=== PATIENT | female | born 1970 | race Caucasian/White ===

== ENCOUNTER 2019-11-14 18:24 | Emergency (ER) | payer SELFPAY ==
[2019-11-14] MEDS ORDERED: CYCLOBENZAPRINE 10 MG TAB ONE (19:06)
[2019-11-14] MEDS ORDERED: IBUPROFEN 400 MG TAB ONE (19:07)
[2019-11-14] MEDS ORDERED: HYDROCODONE/APAP 10/325 TAB ONE (19:07)
[2019-11-14 19:51] LABS: Urine Blood NEGATIVE (NEG); Urine Glucose NEGATIVE (NEG); Urine Protein NEGATIVE (NEG); Urine Specific Gravity >1.030 (1.005-1.030)
[2019-11-14] MEDS ORDERED: ONDANSETRON 4 MG (ODT) TAB ONE (19:59)
--- NOTE | 2019-11-14 20:13 | ER ---
Nurse's Notes [facility] Name: Vianca Casey Age: 49 yrs Sex: Female : 1970 Arrival Date: 11/14/2019 Time: 18:27 Bed 26 Private MD: Diagnosis: Low back pain Presentation: 11/14 18:30 Presenting complaint: Patient states: low back pain that radiates to the sides and down sv the legs. Transition of care: patient was not received from another setting of care. Onset of symptoms was November 14, 2019. Care prior to arrival: None. 18:30 Method Of Arrival: Ambulatory sv 18:30 Acuity: MARY 4 sv 18:32 Risk Assessment: Do you want to hurt yourself or someone else? Patient reports no ls4 desire to harm self or others. Initial Sepsis Screen: Does the patient meet any 2 criteria? No. Patient's initial sepsis screen is negative. Does the patient have a suspected source of infection? No. Patient's initial sepsis screen is negative. Triage Assessment: 18:32 General: Behavior is calm, cooperative. ls4 18:32 Musculoskeletal: No deficits noted. ls4 18:32 General: Appears uncomfortable. Musculoskeletal: Reports weakness in right low back and ls4 left low back since WHILE AT WORK A FEW HOURS AGO . 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 - Social history:: Smoking status: Patient/guardian denies using tobacco. - Ebola Screening: : No symptoms or risks identified at this time. Screenin:32 Abuse screen: Denies threats or abuse. Denies injuries from another. Nutritional ls4 screening: No deficits noted. Tuberculosis screening: No symptoms or risk factors identified. Fall Risk None identified. Assessment: 18:30 General: Appears uncomfortable. Pain: Complains of pain in right low back and left low ls4 back Pain currently is 10 out of 10 on a pain scale. Pain began suddenly, 1 hour ago. 18:30 Neuro: Level of Consciousness is awake, alert, obeys commands, Oriented to person, ls4 place, time, situation. 19:00 Reassessment: Patient and/or family updated on plan of care and expected duration. Pain ls4 level reassessed. Patient is alert, oriented x 3, equal unlabored respirations, skin warm/dry/pink. Patient states feeling better. 20:00 Reassessment: Patient and/or family updated on plan of care and expected duration. Pain ls4 level reassessed. Patient is alert, oriented x 3, equal unlabored respirations, skin warm/dry/pink. 20:00 Cardiovascular: No deficits noted. Respiratory: No deficits noted. ls4 Vital Signs: 18:30 BP 141 / 81; Pulse 80; Resp 18; Temp 97; Pulse Ox 96% ; Weight 86.64 kg; Height 5 ft. 2 sv in. (157.48 cm); 18:30 Body Mass Index 34.93 (86.64 kg, 157.48 cm) sv ED Course: 18:27 Patient arrived in ED. as 18:28 Aj[facility] Law[facility] F[facility]-C [facility]. la1 18:28 Wilian Lebron MD is Attending Physician. la1 18:30 Triage completed. sv 18:31 Arm band placed on. sv 18:32 Patient has correct armband on for positive identification. Bed in low position. Call ls4 light in reach. Side rails up X 1. 18:32 No provider procedures requiring assistance completed. Patient did not have IV access ls4 during this emergency room visit. 18:37 Natasha Be, RN is Primary Nurse. ls4 Administered Medications: 19:11 Drug: Motrin 800 mg Route: PO; ls4 20:20 Follow up: Response: No adverse reaction; Marked relief of symptoms ls4 19:12 Drug: Sulphur 10 mg-325 mg 1 tabs Route: PO; ls4 20:20 Follow up: Response: No adverse reaction; Pain is decreased ls4 19:12 Drug: Flexeril 10 mg Route: PO; ls4 20:20 Follow up: Response: No adverse reaction; Marked relief of symptoms ls4 19:59 Drug: Zofran 4 mg Route: PO; ls4 20:19 Follow up: Response: No adverse reaction; Marked relief of symptoms ls4 Outcome: 20:13 Discharge ordered by . la1 20:37 Patient left the ED. ls4 20:37 Discharged to home ambulatory. ls4 20:37 Condition: stable 20:37 Discharge instructions given to patient, Instructed on discharge instructions, follow up and referral plans. Demonstrated understanding of instructions, follow-up care, medications. Signatures: Maritza Galvan, RN RN Flora Issa Lee, MOBILE HOME LOT UTILITY WORKER-C MOBILE HOME LOT UTILITY WORKER-Cla1 Natasha Be RN RN ls4
--- NOTE | 2019-11-14 20:13 | EDPHYS ---
Physician Documentation [facility] Name: Vianca Casey Age: 49 yrs Sex: Female : 1970 Arrival Date: 11/14/2019 Time: 18:27 Bed 26 Private MD: Wilian Neves HPI: 11/14 19:17 This 49 yrs old Female presents to ER via Ambulatory with complaints of Back la1 Pain. 19:17 The patient presents with pain that is acute, with no known mechanism of injury. The la1 symptoms are located in the low back. Onset: The symptoms/episode began/occurred 2 day(s) ago. The pain does not radiate. Associated signs and symptoms: Pertinent negatives: abdominal pain, chest pain, constipation, dysuria, fever, headache, hematuria, incontinence, numbness, tingling, urinary retention, vomiting, weakness. The problem was sustained. Modifying factors: The patient symptoms are alleviated by remaining still, rest, the patient symptoms are aggravated by any movement, bending, lifting, movement. Severity of symptoms: At their worst the symptoms were moderate. The patient has not experienced similar symptoms in the past. 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 - Social history:: Smoking status: Patient/guardian denies using tobacco. - Ebola Screening: : No symptoms or risks identified at this time. ROS: 19:18 Constitutional: Negative for fever, chills, and weight loss, Eyes: Negative for injury, la1 pain, redness, and discharge, ENT: Negative for injury, pain, and discharge, Neck: Negative for injury, pain, and swelling, Cardiovascular: Negative for chest pain, palpitations, and edema, Respiratory: Negative for shortness of breath, cough, wheezing, and pleuritic chest pain, Abdomen/GI: Negative for abdominal pain, nausea, vomiting, diarrhea, and constipation. 19:18 : Negative for injury, bleeding, discharge, and swelling, MS/Extremity: Negative for injury and deformity, Skin: Negative for injury, rash, and discoloration, Neuro: Negative for headache, weakness, numbness, tingling, and seizure. 19:18 Back: Positive for decreased range of motion, pain with movement. Exam: 19:18 Constitutional: This is a well developed, well nourished patient who is awake, alert, la1 and in no acute distress. Head/Face: Normocephalic, atraumatic. Neck: Trachea midline, no thyromegaly or masses palpated, and no cervical lymphadenopathy. Supple, full range of motion without nuchal rigidity, or vertebral point tenderness. No Meningismus. Chest/axilla: Normal chest wall appearance and motion. Nontender with no deformity. No lesions are appreciated. Cardiovascular: Regular rate and rhythm with a normal S1 and S2. No gallops, murmurs, or rubs. Normal PMI, no JVD. No pulse deficits. Respiratory: Lungs have equal breath sounds bilaterally, clear to auscultation . No rales, rhonchi or wheezes noted. No increased work of breathing, no retractions or nasal flaring. 19:18 Back: pain, that is moderate, of the left low back and right low back, ROM is painful, CVA tenderness, is absent, vertebral tenderness, is not appreciated, Straight leg raises: of both lower extremities does not illicit pain. 19:18 Neuro: Orientation: is normal, Motor: is normal, strength is 5/5 in all extremities, Sensation: no obvious gross deficits, Gait: is steady. Vital Signs: 18:30 BP 141 / 81; Pulse 80; Resp 18; Temp 97; Pulse Ox 96% ; Weight 86.64 kg; Height 5 ft. 2 sv in. (157.48 cm); 18:30 Body Mass Index 34.93 (86.64 kg, 157.48 cm) sv MDM: 18:33 Patient medically screened. la1 20:12 Data reviewed: vital signs, nurses notes, and as a result, I will discharge patient. la1 Data interpreted: Pulse oximetry: on room air is 96 %. Interpretation: normal. Counseling: I had a detailed discussion with the patient and/or guardian regarding: the historical points, exam findings, and any diagnostic results supporting the discharge/admit diagnosis, lab results, the need for outpatient follow up, a family practitioner. Response to treatment: the patient's symptoms have mildly improved after treatment. Special discussion: Based on the patient's history, exam, and Dx evaluation, there is no indication for emergent intervention or inpatient Tx. It is understood by the patient/guardian that if the Sx's persist or worsen they need to return immediately for re-evaluation. 11/14 19:14 Order name: Urine Dipstick--Ancillary (enter results) cm6 11/14 18:58 Order name: Urine Dipstick-Ancillary (obtain specimen); Complete Time: 19:19 la1 Administered Medications: 19:11 Drug: Motrin 800 mg Route: PO; ls4 20:20 Follow up: Response: No adverse reaction; Marked relief of symptoms ls4 19:12 Drug: Luxora 10 mg-325 mg 1 tabs Route: PO; ls4 20:20 Follow up: Response: No adverse reaction; Pain is decreased ls4 19:12 Drug: Flexeril 10 mg Route: PO; ls4 20:20 Follow up: Response: No adverse reaction; Marked relief of symptoms ls4 19:59 Drug: Zofran 4 mg Route: PO; ls4 20:19 Follow up: Response: No adverse reaction; Marked relief of symptoms ls4 Disposition: 11/15 06:15 Co-signature as Attending Physician, Wilian Lebron MD I agree with the assessment and kerry plan of care. Disposition: 11/14/19 20:13 Discharged to Home. Impression: Low back pain. - Condition is Stable. - Discharge Instructions: Back Pain, Adult, Musculoskeletal Pain, Back Injury Prevention, [id number], Back Pain, Adult, Oceh-np-[id number], Back Exercises, Kpcj-[id number]. - Prescriptions for Cyclobenzaprine 10 mg Oral Tablet - take 1 tablet by ORAL route every 8 hours As needed; 30 tablet. - Work release form, Medication Reconciliation Form, Thank You Letter form. - Follow up: Private Physician; When: 2 - 3 days; Reason: Recheck today's complaints, Re-evaluation by your physician. - Problem is new. - Symptoms have improved. Signatures: Dispatcher [employer] Maritza Braden RN RN sv Anderson, Corey, MD MD cha Attema, Lee, TICKET CHOPPER ASSEMBLER-C TICKET CHOPPER ASSEMBLER-Cla1 Natasha Be RN RN ls4 Corrections: (The following items were deleted from the chart) 11/14 20:37 20:13 11/14/2019 20:13 Discharged to Home. Impression: Low back pain. Condition is ls4 Stable. Forms are Medication Reconciliation Form, Thank You Letter, Antibiotic Education, Prescription Opioid Use. Follow up: Private Physician; When: 2 - 3 days; Reason: Recheck today's complaints, Re-evaluation by your physician. Problem is new. Symptoms have improved. la1
[2019-11-14 23:23] VITALS: BP 141/81; TEMP 97; O2SAT 96
== END 2019-11-14 20:37 | disposition home or self-care (01) ==
LOC: ER 18:24
DX: M54.5 Low back pain (principal)
CPT/HCPCS: 81003; 99283

== ENCOUNTER 2022-05-31 05:50 | Emergency (ER) | payer SELFPAY ==
[2022-05-31] MEDS ORDERED: NA CHLORIDE 0.9% 1,000 ML ONE (06:39)
[2022-05-31] MEDS ORDERED: MORPHINE 4 MG/ML SYR ONE (06:39)
[2022-05-31] MEDS ORDERED: ONDANSETRON 4 MG/2 ML VIAL ONE (06:39)
[2022-05-31 06:53] LABS: Absolute Lymphocytes (CBC) 1.4 K/uL (0.7-4.9); Hematocrit 43.9 % (36.0-45.0); Lymphocytes % 29.8 % (15.3-44.8); MCV 96.2 fL (80-100); MPV 8.7 fL (7.6-11.3); RBC Red Blood Cell Count 4.57 M/uL (3.86-4.86)
[2022-05-31 07:08] LABS: Albumin 3.5 g/dL (3.4-5.0); Bilirubin Total 0.5 mg/dL (0.2-1.0); Protein, Total 7.4 g/dL (6.4-8.2)
[2022-05-31 08:04] LABS: Urine Blood Negative (Negative); Urine Glucose Negative (Negative); Urine Protein Negative (Negative)
--- NOTE | 2022-05-31 08:28 | RAD REPORT ---
EXAM DESCRIPTION: CT - Abdomen Pelvis W Contrast - 05/31/2022 8:18 am CLINICAL HISTORY: Abdominal pain COMPARISON: 2013 TECHNIQUE: Computed axial tomography of the abdomen pelvis was obtained. 100 cc Isovue-300 was admin istered intravenously. Oral contrast was not requested which limits evaluation of bowel and appendix All CT scans are performed using dose optimization technique as appropriate and may include automated exposure control or mA/KV adjustment according to patient size. FINDINGS: Fatty liver. Cholecystectomy. Spleen, pancreas, adrenals and kidneys unremarkable. Appendectomy. Hysterectomy. No adnexal mass. There is no evidence of diverticulitis. IMPRESSION: No acute abnormality is displayed.
--- NOTE | 2022-05-31 08:31 | RAD REPORT ---
EXAM DESCRIPTION: CT - Chest For Pe Angio - 05/31/2022 8:18 am CLINICAL HISTORY: Chest pain COMPARISON: None. TECHNIQUE: Dynamically enhanced axial 3 mm thick images of the chest were obtained during administra tion of <100> mL Isovue 370 IV contrast. Coronal and oblique reconstruction images were generated and reviewed. Exam utilizes a protocol for optimal evaluation of pulmonary arterial tree. Maximum intensity projections 3D imaging was utilized All CT scans are performed using dose optimization technique as appropriate and may include automated exposure control or mA/KV adjustment according to patient size. FINDINGS: A pulmonary embolus is not seen. A thoracic aortic aneurysm is not noted. A pleural effusion is not seen. A pericardial effusion is not seen. A lung consolidation is not present. IMPRESSION: Negative for a pulmonary embolism.
[2022-05-31 10:11] VITALS: BP 130/79; O2SAT 100
--- NOTE | 2022-06-02 09:18 | EDPHYS ---
Physician Documentation [facility] Name: Vianca Casey Age: 51 yrs Sex: Female : 1970 Arrival Date: 05/31/2022 Time: 05:55 Bed 4 Private MD: ED Physician Jason Still HPI: 05/31 07:15 This 51 yrs old Female presents to ER via Ambulatory with complaints of Cough, kdr Congestion, Flank Pain. 07:16 Patient states that since yesterday morning, she has had right-sided chest pain. He kdr states that it hurts to breathe. She has had some cough with clear phlegm but otherwise no other focal symptoms.. Onset: The symptoms/episode began/occurred gradually, yesterday. Severity of symptoms: At their worst the symptoms were mild moderate just prior to arrival, in the emergency department the symptoms are unchanged. The patient has not experienced similar symptoms in the past. The patient has not recently seen a physician. 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 Flu vaccine is not up to date. - Social history:: Smoking status: Patient denies any tobacco usage or history of. ROS: 07:16 Constitutional: Negative for fever, chills, and weight loss, Eyes: Negative for injury, kdr pain, redness, and discharge, ENT: Negative for injury, pain, and discharge, Neck: Negative for injury, pain, and swelling, Respiratory: Negative for shortness of breath, cough, wheezing, and pleuritic chest pain, Back: Negative for injury and pain, : Negative for injury, bleeding, discharge, and swelling, MS/Extremity: Negative for injury and deformity, Skin: Negative for injury, rash, and discoloration, Neuro: Negative for headache, weakness, numbness, tingling, and seizure activity. Psych: Negative for depression, anxiety, suicide ideation, homicidal ideation, and hallucinations, Allergy/Immunology: Negative for hives, rash, and allergies, Endocrine: Negative for neck swelling, polydipsia, polyuria, polyphagia, and marked weight changes, Hematologic/Lymphatic: Negative for swollen nodes, abnormal bleeding, and unusual bruising. 07:16 Cardiovascular: Positive for chest pain, Negative for edema, orthopnea, palpitations, paroxysmal nocturnal dyspnea. 07:16 Abdomen/GI: Positive for abdominal pain, nausea, Negative for abdominal cramps, abdominal distension, anorexia, dysphagia, hematemesis, black/tarry stool, rectal pain, rectal bleeding, bowel incontinence. Exam: 07:16 Constitutional: This is a well developed, well nourished patient who is awake, alert, kdr and in no acute distress. Head/Face: Normocephalic, atraumatic. Eyes: Pupils equal round and reactive to light, extra-ocular motions intact. Lids and lashes normal. Conjunctiva and sclera are non-icteric and not injected. Cornea within normal limits. Periorbital areas with no swelling, redness, or edema. Neck: Trachea midline, no thyromegaly or masses palpated, and no cervical lymphadenopathy. Supple, full range of motion without nuchal rigidity, or vertebral point tenderness. No Meningismus. Chest/axilla: Normal chest wall appearance and motion. Nontender with no deformity. No lesions are appreciated. Cardiovascular: Regular rate and rhythm with a normal S1 and S2. No gallops, murmurs, or rubs. Normal PMI, no JVD. No pulse deficits. Respiratory: Lungs have equal breath sounds bilaterally, clear to auscultation and percussion. No rales, rhonchi or wheezes noted. No increased work of breathing, no retractions or nasal flaring. Back: No spinal tenderness. No costovertebral tenderness. Full range of motion. Skin: Warm, dry with normal turgor. Normal color with no rashes, no lesions, and no evidence of cellulitis. MS/ Extremity: Pulses equal, no cyanosis. Neurovascular intact. Full, normal range of motion. Neuro: Awake and alert, GCS 15, oriented to person, place, time, and situation. Cranial nerves II-XII grossly intact. Motor strength 5/5 in all extremities. Sensory grossly intact. Cerebellar exam normal. Normal gait. Psych: Awake, alert, with orientation to person, place and time. Behavior, mood, and affect are within normal limits. 07:16 Abdomen/GI: Inspection: obese Bowel sounds: active, diminished, in all quadrants, Palpation: soft, mild abdominal tenderness, in the right upper quadrant, mass, is not appreciated, rebound tenderness, is not appreciated, Indicators: Sandoval's sign is positive. Vital Signs: 06:13 BP 148 / 91; Pulse 73; Resp 18 S; Pulse Ox 100% on R/A; Weight 94.35 kg (R); Height 5 aa9 ft. 2 in. (157.48 cm) (R); Pain 7/10; 07:23 BP 138 / 78; Pulse 63; Resp 17; Pulse Ox 97% on R/A; vg1 08:29 BP 130 / 79; Pulse 67; Pulse Ox 100% on R/A; ap3 06:13 Body Mass Index 38.04 (94.35 kg, 157.48 cm) aa9 MDM: 07:16 Data reviewed: vital signs, nurses notes, lab test result(s), radiologic studies. kdr Counseling: I had a detailed discussion with the patient and/or guardian regarding: the historical points, exam findings, and any diagnostic results supporting the discharge/admit diagnosis, lab results, radiology results, the need for outpatient follow up. 07:29 Patient medically screened. rn 08:36 Differential Diagnosis pleurisy, viral illness, pneumonia, PTX, PE, COVID. Response to rn treatment: the patient's symptoms have mildly improved after treatment, and as a result, I will discharge patient. Special discussion: I discussed with the patient/guardian in detail that at this point there is no indication for admission to the hospital. It is understood, however, that if the symptoms persist or worsen the patient needs to return immediately for re-evaluation. ED course: Neg PE protocol and CT abdomen.. 05/31 06:08 Order name: COVID-19 SARS RT PCR (Document "Date of Onset" if Symptomatic); Complete kdr Time: 08:06 05/31 06:08 Order name: Flu; Complete Time: 08:06 kdr 05/31 06:25 Order name: CBC with Diff; Complete Time: 07:14 kdr 05/31 06:25 Order name: CMP; Complete Time: 07:14 kdr 05/31 06:25 Order name: Lipase; Complete Time: 07:14 kdr 05/31 07:14 Order name: Troponin High Sensitivity; Complete Time: 08:21 kdr 05/31 06:24 Order name: CT Abd/Pelvis - IV Contrast Only; Complete Time: 08:35 kdr 05/31 06:25 Order name: IV Saline Lock; Complete Time: 06:57 kdr 05/31 06:25 Order name: Labs collected and sent; Complete Time: 06:57 kdr 05/31 07:49 Order name: CT Chest For PE Angio; Complete Time: 08:35 rn 05/31 08:04 Order name: Urine Dipstick-Ancillary; Complete Time: 08:06 EDMS 05/31 06:25 Order name: Urine Dipstick-Ancillary (obtain specimen); Complete Time: 06:57 kdr Administered Medications: 06:44 Drug: NS 0.9% 1000 ml Route: IV; Rate: 1 bolus; Site: right antecubital; aa9 07:49 Follow up: IV Status: Completed infusion; IV Intake: 1000ml vg1 06:44 Drug: morphine 4 mg Route: IVP; Infused Over: 4 mins; Site: right antecubital; aa9 06:44 Follow up: Response: No adverse reaction; RASS: Alert and Calm (0) aa9 06:44 Drug: Zofran (Ondansetron) 4 mg Route: IVP; Site: right antecubital; aa9 06:44 Follow up: Response: No adverse reaction aa9 Disposition Summary: 05/31/22 08:37 Discharge Ordered Location: Home rn Problem: new rn Symptoms: have improved rn Condition: Stable rn Diagnosis - Cough rn - Pleurisy rn Followup: rn - With: Private Physician - When: As needed - Reason: Recheck today's complaints, Re-evaluation by your physician Discharge Instructions: - Discharge Summary Sheet rn - Pleurisy rn - Cough, Adult rn Forms: - Medication Reconciliation Form rn - Thank You Letter rn - Antibiotic manager e learning - Prescription Opioid Use rn Prescriptions: - Zithromax Z-Sen 250 mg Oral Tablet - take 1 tablet by ORAL route as directed for 5 days Day 1 - take two (2) tablets rn one time. Day 2, 3, 4 , 5 take one (1) tablet once daily.; 6 tablet; Refills: 0, Product Selection Permitted - Prednisone 20 mg Oral Tablet - take 3 tablets by ORAL route once daily for 5 days; 15 tablet; Refills: 0, rn Product Selection Permitted Signatures: Dispatcher [employer] Gen Reed MD MD kdr Nieto, Roman, MD MD rn Worthington, Nahomi, RN RN aa9 Sandy Townsend RN vg1 Corrections: (The following items were deleted from the chart) 06:16 PMHx: hysterectomy; 06:16 PMHx: knee surgery; 06:16 PMHx: appendectomy; aa9 06:16 PMHx: colonoscopy; 06:16 PSHx: Appendectomy;
--- NOTE | 2022-06-02 09:18 | ER ---
Nurse's Notes [facility] Name: Vianca Casey Age: 51 yrs Sex: Female : 1970 Arrival Date: 05/31/2022 Time: 05:55 Bed 4 Private MD: Diagnosis: Cough;Pleurisy Presentation: 05/31 06:13 Chief complaint: Patient states: "chest hurts, my right side hurts, hurts to breath, aa9 hurts to walk and turn and congested. noticed it yesterday morning. ". Coronavirus screen: Vaccine status: Patient reports being unvaccinated. Ebola Screen: No symptoms or risks identified at this time. Initial Sepsis Screen: Does the patient meet any 2 criteria? No. Patient's initial sepsis screen is negative. Does the patient have a suspected source of infection? No. Patient's initial sepsis screen is negative. Risk Assessment: Do you want to hurt yourself or someone else? Patient reports no desire to harm self or others. Onset of symptoms was May 30, 2022. 06:13 Method Of Arrival: Ambulatory aa9 06:13 Acuity: MARY 3 aa9 Triage Assessment: 06:16 General: Appears in no apparent distress. comfortable, Behavior is calm, cooperative. aa9 Pain: Complains of pain in chest Pain currently is 9 out of 10 on a pain scale. Quality of pain is described as heavy, pressure. Respiratory: Respiratory: Breath sounds are clear bilaterally. 06:22 Cardiovascular: Heart tones S1 S2 present. 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 Flu vaccine is not up to date. - Social history:: Smoking status: Patient denies any tobacco usage or history of. Screenin:25 Abuse screen: Denies threats or abuse. Denies injuries from another. Nutritional aa9 screening: No deficits noted. Tuberculosis screening: No symptoms or risk factors identified. Fall Risk None identified. Assessment: 06:21 General: Appears in no apparent distress. uncomfortable. Pain: Complains of pain in aa9 chest Pain currently is 9 out of 10 on a pain scale. Quality of pain is described as heavy. 07:23 Reassessment: Patient appears in no apparent distress at this time. Patient and/or vg1 family updated on plan of care and expected duration. Pain level reassessed. Patient is alert, oriented x 3, equal unlabored respirations, skin warm/dry/pink. Rates pain under right breast 5/10; stated "feeling better after getting the morphine". 07:49 Reassessment: patient provided with urine specimen container and education on proper ap3 urine collection. patient verbalized understanding on proper urine collection. 08:30 Reassessment: No changes from previously documented assessment. Patient and/or family ap3 updated on plan of care and expected duration. Pain level reassessed. Patient is alert, oriented x 3, equal unlabored respirations, skin warm/dry/pink. 08:48 Cardiovascular: Patient's skin is warm and dry. Respiratory: Airway is patent ap3 Respiratory effort is even, unlabored. Vital Signs: 06:13 BP 148 / 91; Pulse 73; Resp 18 S; Pulse Ox 100% on R/A; Weight 94.35 kg (R); Height 5 aa9 ft. 2 in. (157.48 cm) (R); Pain 7/10; 07:23 BP 138 / 78; Pulse 63; Resp 17; Pulse Ox 97% on R/A; vg1 08:29 BP 130 / 79; Pulse 67; Pulse Ox 100% on R/A; ap3 06:13 Body Mass Index 38.04 (94.35 kg, 157.48 cm) aa9 ED Course: 05:55 Patient arrived in ED. ja2 06:07 Gen Dickinson MD is Attending Physician. kdr 06:14 Inserted saline lock: 18 gauge in right antecubital area, using aseptic technique. jb4 Blood collected. 06:16 Triage completed. aa9 06:20 Arm band placed on. aa9 06:25 Patient has correct armband on for positive identification. Placed in gown. Bed in low aa9 position. 06:45 Flu Sent. aa9 06:45 COVID-19 SARS RT PCR (Document "Date of Onset" if Symptomatic) Sent. aa9 06:57 CBC with Diff Sent. tw5 06:57 CMP Sent. tw5 06:57 Lipase Sent. tw5 07:09 Sandy Townsend, RN is Primary Nurse. vg1 07:29 Attending Physician role handed off by Gen Dickinson MD rn 07:29 Jason Still MD is Attending Physician. rn 07:55 Troponin High Sensitivity Sent. kc6 07:55 Flu Sent. kc6 08:05 Assisted to bathroom. kc6 08:20 CT Abd/Pelvis - IV Contrast Only In Process Unspecified. EDMS 08:20 CT Chest For PE Angio In Process Unspecified. EDMS 08:47 No provider procedures requiring assistance completed. IV discontinued, intact, ap3 bleeding controlled, No redness/swelling at site. Pressure dressing applied. Administered Medications: 06:44 Drug: NS 0.9% 1000 ml Route: IV; Rate: 1 bolus; Site: right antecubital; aa9 07:49 Follow up: IV Status: Completed infusion; IV Intake: 1000ml vg1 06:44 Drug: morphine 4 mg Route: IVP; Infused Over: 4 mins; Site: right antecubital; aa9 06:44 Follow up: Response: No adverse reaction; RASS: Alert and Calm (0) aa9 06:44 Drug: Zofran (Ondansetron) 4 mg Route: IVP; Site: right antecubital; aa9 06:44 Follow up: Response: No adverse reaction aa9 Medication: 08:47 VIS not applicable for this client. ap3 Intake: 07:49 IV: 1000ml; Total: 1000ml. vg1 Outcome: 08:37 Discharge ordered by MD. rn 08:48 Discharged to home ambulatory. ap3 08:48 Condition: good 08:48 Discharge instructions given to patient, Instructed on discharge instructions, follow up and referral plans. Demonstrated understanding of instructions, follow-up care, medications, Prescriptions given X 2. 08:49 Patient left the ED. ap3 Signatures: Dispatcher [employer] EDTX Gen Dickinson MD MD [facility] Jason Still MD MD rn Bryson, James, RN RN jb4 Whitney Howard RN RN ap3 Sandy Townsend RN RN vg1 Lissa Ruvalcaba Fouzia Joseph tw5 Nahomi Worthington RN RN aa9 Mariana Trujillo kc6 Corrections: (The following items were deleted from the chart) 06:19 06:16 PMHx: hysterectomy; aa9 aa9 06:19 06:16 PMHx: knee surgery; aa9 aa9 06:16 PMHx: appendectomy; aa9 aa9 06:16 PMHx: colonoscopy; aa9 aa9 06:16 PSHx: Appendectomy; aa9 aa9 06:16 Respiratory: aa9 aa9
== END 2022-05-31 08:49 | disposition home or self-care (01) ==
LOC: ER 05:50
DX: R05.9 Cough, unspecified (principal); R09.1 Pleurisy; R10.11 Right upper quadrant pain; Z20.822 Contact with and (suspected) exposure to COVID-19
CPT/HCPCS: 36415; 71275; 74177; 80053; 81003; 83690; 84484; 85025; 87804; 96361; 96374; 96375; 99284; J2405; J7030; Q9967; U0003

== ENCOUNTER 2023-08-16 19:54 | Emergency (ER) | payer SELFPAY ==
--- NOTE | 2023-08-16 21:36 | EDPHYS ---
Physician Documentation [facility] Name: Vianca Casey Age: 52 yrs Sex: Female : 1970 Arrival Date: 08/16/2023 Time: 19:54 Bed IW9 Private MD: ED Physician Willam Beard HPI: 08/16 21:35 This 52 yrs old Female presents to ER via Ambulatory with complaints of Insect Bite - ms3 RIGHT LEG. 21:35 52-year-old female presents for blistered area with surrounding erythema that began ms3 this morning. Patient states she is having mild pain in the area. Patient denies fevers or chills. Patient denies any alleviating or inciting factors. 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 - Social history:: Smoking status: Patient denies any tobacco usage or history of. ROS: 21:35 Constitutional: Negative for fever, and chills. Neck: Negative for injury, pain, and ms3 swelling, Cardiovascular: Negative for chest pain, and palpitations. Respiratory: Negative for shortness of breath, cough, wheezing, and pleuritic chest pain, Abdomen/GI: Negative for abdominal pain, nausea, vomiting, diarrhea, and constipation, 21:35 Skin: Positive for rash, 21:35 All other systems are negative, Exam: 21:35 Constitutional: This is a well developed, well nourished patient who is awake, alert, ms3 and in no acute distress. Head/Face: Normocephalic, atraumatic. Chest/axilla: Normal chest wall appearance and motion. Nontender with no deformity. Cardiovascular: Regular rate and rhythm with a normal S1 and S2. No gallops, murmurs, or rubs. Normal PMI, no JVD. No pulse deficits. Respiratory: Lungs have equal breath sounds bilaterally, clear to auscultation and percussion. No rales, rhonchi or wheezes noted. No increased work of breathing, no retractions or nasal flaring. Abdomen/GI: Soft, non-tender, with normal bowel sounds. No distension or tympany. No guarding or rebound. No evidence of tenderness throughout. 21:35 Skin: cellulitis, that is mild, on the lateral aspect of right calf, With centralized pustule, Vital Signs: 20:29 BP 111 / 61; Pulse 99; Resp 18; Temp 99.3; Pulse Ox 98% ; Weight 91.63 kg; Pain 7/10; ap3 20:29 Pain Scale: Adult ap3 MDM: 21:34 Patient medically screened. ms3 22:24 Differential diagnosis: Cellulitis versus insect bite. Data reviewed: vital signs, ms3 nurses notes, and as a result, I will discharge patient. I considered the following discharge prescriptions or medication management in the emergency department Medications were administered in the Emergency Department. See MAR. Counseling: I had a detailed discussion with the patient and/or guardian regarding the historical points, exam findings, and any diagnostic results supporting the discharge/admit diagnosis, the need for outpatient follow up, to return to the emergency department if symptoms worsen or persist or if there are any questions or concerns that arise at home. Special discussion: I discussed with the patient/guardian in detail that at this point there is no indication for admission to the hospital. It is understood, however, that if the symptoms persist or worsen the patient needs to return immediately for re-evaluation. ED course: Discussed physical exam findings with patient. Patient given prescription for doxycycline after p.o. doxycycline in the emergency department. Patient to follow-up with primary care physician in 2 to 3 days. Patient understands and agrees with plan. All questions were answered. Return precautions discussed include fevers, chills, worsening symptoms, or any other concerns. Administered Medications: 21:43 Drug: Doxycycline PO 100 mg PO once Route: PO; cm10 21:46 Follow up: Response: No adverse reaction cm10 Disposition Summary: 08/16/23 21:35 Discharge Ordered Notes: Location: Home ms3 Condition: Stable ms3 Diagnosis - Cellulitis of right lower limb ms3 Followup: ms3 - With: Omero Flowers DO - When: 2 - 3 days - Reason: Recheck today's complaints Discharge Instructions: - Discharge Summary Sheet ms3 - Cellulitis, Adult ms3 Forms: - Medication Reconciliation Form ms3 - Thank You Letter ms3 - Antibiotic Education ms3 - Prescription Opioid Use ms3 - Patient Portal Instructions ms3 - Leadership Thank You Letter ms3 Prescriptions: - Doxycycline Hyclate 100 mg Oral Tablet - take 1 tablet ORAL route every 12 hours; 20 tablet; Refills: 0, Product ms3 Selection Permitted Signatures: Whitney Howard RN RN ap3 Willam Beard DO DO ms3 Yelena Lamar RN RN cm10
--- NOTE | 2023-08-16 21:36 | ER ---
Nurse's Notes [facility] Name: Vianca Casey Age: 52 yrs Sex: Female : 1970 Arrival Date: 08/16/2023 Time: 19:54 Bed IW9 Private MD: Diagnosis: Cellulitis of right lower limb Presentation: 08/16 20:29 Chief complaint: Patient states: she was bit by an unknown insect earlier today on her ap3 right lower extremity. patient currently rates her pain as a 7/10 on the pain scale. Coronavirus screen: At this time, the client does not indicate any symptoms associated with coronavirus-19. Ebola Screen: No symptoms or risks identified at this time. Initial Sepsis Screen: Does the patient meet any 2 criteria? No. Patient's initial sepsis screen is negative. Does the patient have a suspected source of infection? Yes: Skin breakdown/wound. Risk Assessment: Do you want to hurt yourself or someone else? Patient reports no desire to harm self or others. Onset of symptoms was August 16, 2023. 20:29 Method Of Arrival: Ambulatory ap3 20:29 Acuity: MARY 4 ap3 Triage Assessment: 20:31 Bite description: bite sustained to lateral aspect of right calf by an unknown animal. ap3 General: Appears in no apparent distress. Behavior is calm, cooperative, appropriate for age. Pain: Complains of pain in lateral aspect of right calf Pain currently is 7 out of 10 on a pain scale. Neuro: Level of Consciousness is awake, alert, obeys commands, Oriented to person, place, time, situation. Cardiovascular: Patient's skin is warm and dry. Respiratory: Airway is patent Respiratory effort is even, unlabored, Respiratory pattern is regular, symmetrical. 20:31 Bite description: animal information: vaccination(s) is not applicable. 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 - Social history:: Smoking status: Patient denies any tobacco usage or history of. Screenin:31 [facility] ED Fall Risk Assessment (Adult) History of falling in the last 3 months, ap3 including since admission No falls in past 3 months (0 pts). Abuse screen: Denies threats or abuse. Nutritional screening: No deficits noted. Tuberculosis screening: No symptoms or risk factors identified. Assessment: 21:47 Derm: Skin is intact, Skin is pink, warm \T\ dry. cm10 Vital Signs: 20:29 BP 111 / 61; Pulse 99; Resp 18; Temp 99.3; Pulse Ox 98% ; Weight 91.63 kg; Pain 7/10; ap3 20:29 Pain Scale: Adult ap3 ED Course: 19:56 Patient arrived in ED. kj1 20:13 Willam Beard DO is Attending Physician. ms3 20:30 Triage completed. ap3 20:31 Arm band placed on right wrist. ap3 21:35 Omero Flowers DO is Referral Physician. ms3 21:46 Patient has correct armband on for positive identification. Provided Education on: ER cm10 process and procedures. . 21:46 No provider procedures requiring assistance completed. Patient did not have IV access cm10 during this emergency room visit. Administered Medications: 21:43 Drug: Doxycycline PO 100 mg PO once Route: PO; cm10 21:46 Follow up: Response: No adverse reaction cm10 Medication: 21:46 VIS not applicable for this client. cm10 Outcome: 21:35 Discharge ordered by MD. ms3 21:46 Discharged to home ambulatory, cm10 21:46 Condition: good 21:46 Discharge instructions given to patient, Instructed on discharge instructions, follow up and referral plans. medication usage, Demonstrated understanding of instructions, follow-up care, medications, Prescriptions given X 1, 21:48 Patient left the ED. cm10 Signatures: Whitney Howard RN RN ap3 Linda Infante kj1 Willam Beard DO DO ms3 Yelena Lamar RN RN cm10
[2023-08-16] MEDS ORDERED: DOXYCYCLINE 100 MG CAP PO ONE (21:53)
[2023-08-16 21:55] VITALS: BP 111/61; TEMP 99.3; O2SAT 98
== END 2023-08-16 21:48 | disposition home or self-care (01) ==
LOC: ER 19:54
DX: L03.115 Cellulitis of right lower limb (principal)
CPT/HCPCS: 99283

== ENCOUNTER 2023-12-16 11:46 | Inpatient (IN) | payer OTHER, SELFPAY ==
[2023-12-16 12:53] LABS: SARS-CoV-2 Antigen Rapid Res Negative (Negative)
--- NOTE | 2023-12-16 13:22 | RAD REPORT ---
[facility]15 [facility] CLINICAL HISTORY: COUGH COMPARISON: Chest Pa And Lat (2 Views) dated 03/12/2016; CHEST SINGLE VIEW dated 06/08/2015; CHEST SING LE VIEW dated 12/19/2011; CHEST SINGLE VIEW dated 08/04/2009 TECHNIQUE: Portable AP view of the chest. FINDINGS: A focus of hazy airspace opacification at the medial left lower lung. No pneumothorax or effusion. The cardiomediastinal contours are unremarkable. IMPRESSION: Left lower lung new airspace opacification, concerning for early pneumonia.
[2023-12-16 13:23] LABS: Absolute Lymphocytes (CBC) 1.3 K/uL (0.7-4.9); Hematocrit 23.3 % (36.0-45.0); Lymphocytes % 16.3 % (15.3-44.8); MCV 64.2 fL (80-100); MPV 8.9 fL (7.6-11.3); Platelets 184 thou/uL (152-406); RBC Red Blood Cell Count 3.62 M/uL (3.86-4.86)
[2023-12-16 13:32] LABS: Protime INR 1.36
[2023-12-16 13:52] LABS: Albumin 3.1 g/dL (3.4-5.0); Bilirubin Direct 0.9 mg/dL (0-0.2); Bilirubin Indirect, Calculated 0.9 mg/dL (0.2-0.8); Bilirubin Total 1.8 mg/dL (0.2-1.0); Magnesium 2.1 mg/dL (1.6-2.4); Potassium 3.1 mEq/L (3.5-5.1); Protein, Total 7.7 g/dL (6.4-8.2); Troponin High Sensitivity 26.8 pg/mL (<58.9)
[2023-12-16 13:57] LABS: Anisocytosis 1+; Blood Morphology Comment NOTED (NOT SEEN); Hypochromasia 1+; Platelet Estimate ADEQ; Teardrop Cell 1+; White Blood Cell Scan OK (OK)
[2023-12-16 13:58] LABS: Ovalocytes 1+
[2023-12-16] MEDS ORDERED: IBUPROFEN 200 MG TAB PO ONE (14:13)
[2023-12-16] MEDS ORDERED: AZITHROMYCIN 250 MG TAB ONE (14:13)
[2023-12-16] MEDS ORDERED: CEFTRIAXONE 2000 MG/VIAL ONE (14:14)
[2023-12-16] MEDS ORDERED: ACETAMINOPHEN 325 MG TABLET ONE (14:14)
[2023-12-16] MEDS ORDERED: IBUPROFEN 400 MG TAB ONE (14:14)
[2023-12-16] MEDS ORDERED: NA CHLORIDE 0.9% 1,000 ML ONE (14:14)
[2023-12-16 14:46] LABS: RBC Red Blood Cell Count 3.58 M/uL (3.86-4.86)
[2023-12-16] MEDS ORDERED: PANTOPRAZOLE 40 MG INJ ONE (14:54)
[2023-12-16] MEDS ORDERED: ONDANSETRON 4 MG/2 ML VIAL ONE (14:54)
[2023-12-16] MEDS ORDERED: NA CHLORIDE 0.9% 250 ML ONE (14:55)
[2023-12-16] MEDS: Levofloxacin500mg IV 500 MG/100 ML BAG IV ONE (14:58)
--- NOTE | 2023-12-16 15:00 | EKG ---
Test Date: 2023-12-16 Test Time: 12:59:13 Plastic Surgery Nurse: LINDA MEASUREMENT RESULTS: Intervals: Rate: 88 NC: 140 QRSD: 72 QT: 468 QTc: 566 [place]: P: 62 NC: 140 QRS: -39 T: 68 INTERPRETIVE STATEMENTS: Normal sinus rhythm Left axis deviation Nonspecific ST and T wave abnormality Prolonged QT Abnormal ECG Compared to ECG 06/08/2015 17:39:49 Left-axis deviation now present ST (T wave) deviation now present Prolonged QT interval now present Electronically Signed On 12-16-23 14:59:12 DUMP ATTENDANT by Elijah Guillaume
[2023-12-16] MEDS ORDERED: POTASSIUM 25 MEQ EFFERV TAB ONE (17:15)
--- NOTE | 2023-12-16 17:16 | EDPHYS ---
Physician Documentation [facility] Name: Vianca Casey Age: 53 yrs Sex: Female : 1970 Arrival Date: 12/16/2023 Time: 11:46 Bed 16 Private MD: MESERET Physician Wilian Lebron HPI: 12/16 17:02 This 53 yrs old Female presents to ER via Ambulatory with complaints of Flu kerry Symptoms, Pain All Over. 17:02 The patient has shortness of breath at rest, with light activity. Onset: The kerry symptoms/episode began/occurred 3 day(s) ago. Duration: The symptoms are continuous, and are steadily getting worse. The patient's shortness of breath is aggravated by nothing, is alleviated by rest, application of supplemental oxygen. The patient or guardian reports cough, difficulty breathing. Modifying factors: The symptoms are alleviated by remaining still, rest, the symptoms are aggravated by activity, talking. weask, pale , obese. The patient has experienced near-syncope, felt dizzy. Duration: The patient has had multiple episodes, that last 20 second(s). Associated signs and symptoms: Pertinent positives: non-productive cough, dizziness. Severity of symptoms: At their worst the symptoms were moderate in the emergency department the symptoms are unchanged. Associated signs and symptoms: Pertinent positives: fever, nausea, rhinorrhea, sore throat. Associated signs and symptoms: Pertinent positives: dizziness, lightheadedness, shortness of breath. The patient has experienced similar episodes in the past, several times. Historical: - Allergies: 12:21 NKDA; iw - Home Meds: 12:21 None [Active]; iw - PMHx: 12:21 None; iw - PSHx: 12:21 Appendectomy; Cholecystectomy; hysterectomy; knee surgery; iw - Immunization history:: Adult Immunizations not up to date. - Social history:: Smoking status: Patient denies any tobacco usage or history of. ROS: 17:05 Constitutional: Negative for fever, chills, and weight loss, Eyes: Negative for injury, kerry pain, redness, and discharge, ENT: Negative for injury, pain, and discharge, Neck: Negative for injury, pain, and swelling, Cardiovascular: Negative for chest pain, palpitations, and edema, Abdomen/GI: Negative for abdominal pain, nausea, vomiting, diarrhea, and constipation, Back: Negative for injury and pain, : Negative for injury, bleeding, discharge, and swelling, MS/Extremity: Negative for injury and deformity, Neuro: Negative for headache, weakness, numbness, tingling, and seizure, Psych: Negative for depression, anxiety, suicide ideation, homicidal ideation, and hallucinations, Allergy/Immunology: Negative for hives, rash, and allergies, Endocrine: Negative for neck swelling, polydipsia, polyuria, polyphagia, and marked weight changes, Hematologic/Lymphatic: Negative for swollen nodes, abnormal bleeding, and unusual bruising, 17:05 ENT: Positive for sore throat, 17:05 Respiratory: Positive for cough, shortness of breath, 17:05 Neuro: Positive for dizziness, near syncope, weakness, Exam: 17:05 Constitutional: This is a well developed, well nourished patient who is awake, alert, kerry and in no acute distress. Head/Face: Normocephalic, atraumatic. Eyes: Pupils equal round and reactive to light, extra-ocular motions intact. Lids and lashes normal. Conjunctiva and sclera are non-icteric and not injected. Cornea within normal limits. Periorbital areas with no swelling, redness, or edema. ENT: Nares patent. No nasal discharge, no septal abnormalities noted. Tympanic membranes are normal and external auditory canals are clear. Oropharynx with no redness, swelling, or masses, exudates, or evidence of obstruction, uvula midline. Mucous membranes moist. Neck: Trachea midline, no thyromegaly or masses palpated, and no cervical lymphadenopathy. Supple, full range of motion without nuchal rigidity, or vertebral point tenderness. No Meningismus. Chest/axilla: Normal chest wall appearance and motion. Nontender with no deformity. No lesions are appreciated. Cardiovascular: Regular rate and rhythm with a normal S1 and S2. No gallops, murmurs, or rubs. Normal PMI, no JVD. No pulse deficits. Respiratory: Lungs have equal breath sounds bilaterally, clear to auscultation and percussion. No rales, rhonchi or wheezes noted. No increased work of breathing, no retractions or nasal flaring. Abdomen/GI: Soft, non-tender, with normal bowel sounds. No distension or tympany. No guarding or rebound. No evidence of tenderness throughout. Back: No spinal tenderness. No costovertebral tenderness. Full range of motion. MS/ Extremity: Pulses equal, no cyanosis. Neurovascular intact. Full, normal range of motion. Neuro: Awake and alert, GCS 15, oriented to person, place, time, and situation. Cranial nerves II-XII grossly intact. Motor strength 5/5 in all extremities. Sensory grossly intact. Cerebellar exam normal. Normal gait. Psych: Awake, alert, with orientation to person, place and time. Behavior, mood, and affect are within normal limits. 17:05 ECG was reviewed by the Attending Physician. 17:05 Musculoskeletal/extremity: DVT Exam: No signs of deep vein thrombosis. no pain, no swelling, no tenderness, negative Homans' sign noted on exam, no appreciated bluish discoloration, no erythema, no increased warmth, 17:05 Skin: Appearance: Color: pale, Temperature: normal temperature, Moisture: dry, abscess, not appreciated, cellulitis, is not appreciated, induration, is not appreciated, 17:05 Neuro: Orientation: is normal, appropriate for stated age, no acute changes, Mentation: slow to respond, Memory: is normal, appropriate for stated age, no acute changes, Cranial nerves: grossly normal, is grossly normal based on the patient's age, no acute changes, Cerebellar function: is grossly normal, is grossly normal based on the patient's age, no acute changes, Motor: is normal, is grossly normal based on the patient's age, no acute changes, moves all fours, strength is 5/5 in all extremities, Sensation: is normal, no obvious gross deficits, appropriate no acute changes, Gait: not applicable Babinski testing is normal, seizure activity, is not displayed by the patient, 17:11 Abdomen/GI: Inspection: abdomen appears normal, Bowel sounds: normal, Palpation: kerry abdomen is soft and non-tender, nontender, Rectal exam: rectal tone normal, Stool: guaiac negative, hemorrhoid(s), are not appreciated, mass, is not appreciated, swelling, is not appreciated, tenderness, is not appreciated, Liver: no appreciated palpable abnormalities, Hernia: not appreciated, Vital Signs: 12:19 BP 124 / 68; Pulse 88; Resp 19; Temp 99.7; Pulse Ox 95% on R/A; Weight 91.63 kg; Height iw 5 ft. 2 in. ; 15:09 BP 166 / 85; Pulse 88; Resp 20; Pulse Ox 100% on R/A; mb9 16:40 BP 107 / 62; Pulse 81; Resp 16; Temp 98.4; Pulse Ox 96% on R/A; mb9 16:45 BP 105 / 60; Pulse 79; Resp 16; Temp 98.2; Pulse Ox 98% on R/A; mb9 16:50 BP 106 / 58; Pulse 79; Resp 18; Temp 98.4; Pulse Ox 100% on R/A; mb9 17:40 BP 108 / 66; Pulse 82; Resp 18; Temp 98.4; Pulse Ox 99% on R/A; mb9 18:55 BP 105 / 66; Pulse 76; Resp 20; Temp 98.4; Pulse Ox 100% ; mb9 19:00 BP 106 / 64; Pulse 79; Resp 20; Temp 98.4; Pulse Ox 100% ; mb9 20:25 BP 103 / 64; Pulse 78; Resp 18; Pulse Ox 100% ; mb9 20:57 BP 106 / 72; Pulse 74; Resp 18; Temp 98.4; Pulse Ox 100% on R/A; mb9 12:19 Body Mass Index 36.95 (91.63 kg, 157.48 cm) iw 16:40 basline VS for RBC transfusion mb9 18:55 Baseline VS for 2nd RBC unit mb9 NIH Stroke Scale Scores: 17:11 NIHSS Score: 0 kerry [place] Coma Score: 17:11 Eye Response: spontaneous(4). Motor Response: obeys commands(6). Verbal Response: kerry oriented(5). Total: 15. MDM: 11:58 Patient medically screened. kerry 17:09 Differential diagnosis: Anemia Anxiety Reaction Bronchitis CHF exacerbation, Chronic kerry Obstructive Pulmonary Disease bronchitis, flu, URI, Myocardial Infarction pneumonia, pulmonary edema, Pulmonary Embolism reactive airway disease, Sepsis Unstable Angina. Antibiotic administration: Rocephin and Zithromax given. Differential Diagnosis altered mental status, sepsis, flu. Differential Diagnosis: cardiac arrhythmia, cerebrovascular accident, vasovagal episode. Immunization status: Influenza vaccine:. Data reviewed: vital signs, nurses notes, lab test result(s), EKG, radiologic studies, plain films. Consideration of Admission/Observation Patient was admitted/placed on observation. Escalation of care including admission/observation considered. I considered the following discharge prescriptions or medication management in the emergency department Medications were administered in the Emergency Department. See MAR. Independent interpretation of the following test(s) in the Emergency Department EKG: See my EKG interpretation above. Test considered but Not performed: EKG: . Historians other than the Patient: patient well informed. Care significantly affected by the following chronic conditions: Obesity. Counseling: I had a detailed discussion with the patient and/or guardian regarding the historical points, exam findings, and any diagnostic results supporting the discharge/admit diagnosis, lab results, radiology results, the need for further work-up and treatment in the hospital. 12/16 11:59 Order name: SARS RAPID; Complete Time: 14:13 [facility] 12/16 11:59 Order name: Flu; Complete Time: 14:13 [facility] 12/16 11:59 Order name: Strep; Complete Time: 14:13 [facility] 12/16 12:25 Order name: Basic Metabolic Panel; Complete Time: 14:13 [facility] 12/16 12:25 Order name: CBC with Diff; Complete Time: 14:13 [facility] 12/16 12:25 Order name: LFT's; Complete Time: 14:13 kerry 12/16 12:25 Order name: Magnesium; Complete Time: 14:13 [facility] 12/16 12:25 Order name: NT PRO-BNP; Complete Time: 14:13 [facility] 12/16 12:25 Order name: PT-INR; Complete Time: 14:13 [facility] 12/16 12:25 Order name: Troponin HS; Complete Time: 14:13 [facility] 12/16 12:25 Order name: Blood Culture Adult (2) [facility] 12/16 12:25 Order name: Lactate w/ 2H reflex if indic.; Complete Time: 14:13 [facility] 12/16 13:58 Order name: CBC Smear Scan; Complete Time: 14:13 [facility] 12/16 14:21 Order name: Type And Screen [facility] 12/16 14:21 Order name: Iron Level; Complete Time: 16:45 [facility] 12/16 14:21 Order name: Retic Count; Complete Time: 16:45 [facility] 12/16 14:21 Order name: Ferritin [facility] 12/16 14:21 Order name: B12; Complete Time: 16:45 [facility] 12/16 14:21 Order name: TIBC; Complete Time: 16:45 [facility] 12/16 14:54 Order name: Packed RBC Leukored [facility] 12/16 14:56 Order name: LAB Add On sp 12/16 15:24 Order name: ABO/RH no charge; Complete Time: 16:45 [facility] 12/16 17:44 Order name: CBC with Automated Diff [facility] 12/16 17:44 Order name: CBC with Automated Diff [facility] 12/16 19:37 Order name: Lipid Profile [facility] 12/16 19:37 Order name: Thyroid Stimulating Hormone [facility] 12/16 19:37 Order name: Comprehensive Metabolic Panel [facility] 12/16 19:37 Order name: Comprehensive Metabolic Panel [facility] 12/16 19:37 Order name: Comprehensive Metabolic Panel [facility] 12/16 19:37 Order name: Comprehensive Metabolic Panel [facility] 12/17 05:06 Order name: CBC Smear Scan [facility] 12/17 05:27 Order name: T4 Free [facility] 12/16 12:25 Order name: XRAY Chest (1 view); Complete Time: 14:13 [facility] 12/16 12:25 Order name: EKG; Complete Time: 12:25 [facility] 12/16 12:25 Order name: Cardiac monitoring; Complete Time: 15:09 [facility] 12/16 12:25 Order name: EKG - Nurse/Tech; Complete Time: 13:03 [facility] 12/16 12:25 Order name: IV Saline Lock; Complete Time: 13:03 [facility] 12/16 12:25 Order name: Labs collected and sent; Complete Time: 13:03 [facility] 12/16 12:25 Order name: O2 Per Protocol; Complete Time: 15:09 [facility] 12/16 12:25 Order name: O2 Sat Monitoring; Complete Time: 15:09 [facility] 12/16 14:21 Order name: Transfuse; Complete Time: 16:54 [facility] EC:05 Rate is 88 beats/min. Rhythm is regular. QRS [place] is Normal. DE interval is normal. QRS kerry interval is normal. QT interval is prolonged at 566 msec. No Q waves. T waves are Normal. No ST changes noted. Clinical impression: NSR w/ Non-specific ST/T Changes and No evidence of ischemia. Interpreted by me. Reviewed by me. Administered Medications: 14:25 Drug: AZITHromycin PO 500 mg PO once Route: PO; aa5 15:09 Follow up: Response: No adverse reaction mb9 14:25 Drug: Ibuprofen PO 600 mg PO once Route: PO; aa5 15:09 Follow up: Response: No adverse reaction mb9 14:25 Drug: NS 0.9% IV 1000 ml IV at 1 bolus Per protocol; 1000 mL bolus Route: IV; Rate: 1 aa5 bolus; Site: left antecubital; 18:22 Follow up: Response: No adverse reaction; IV Status: Completed infusion mb9 14:25 Drug: Rocephin IV 2 grams IV at per protocol once; Given slow IV push per pharmay aa5 instructions Route: IV; Rate: per protocol; Site: left antecubital; 18:22 Follow up: Response: No adverse reaction; IV Status: Completed infusion mb9 14:25 Drug: Acetaminophen PO 650 mg PO once Route: PO; aa5 15:09 Follow up: Response: No adverse reaction mb9 15:00 Drug: Ondansetron IVP 4 mg IVP once; over 2 minutes Route: IVP; Site: right antecubital;mb9 16:54 Follow up: Response: No adverse reaction mb9 15:04 Drug: Pantoprazole IVP 40 mg IVP once Route: IVP; Site: right antecubital; mb9 16:54 Follow up: Response: No adverse reaction mb9 15:09 Drug: levofloxacin IVPB 500 mg 100 ml IVPB once over 60 mins Volume: 100 ml; Route: mb9 IVPB; Infused Over: 60 mins; Site: right antecubital; 16:59 Follow up: Response: No adverse reaction; IV Status: Completed infusion mb9 17:17 Drug: Potassium PO Effervescent Tablet 50 mEq PO once; dissolve in 4 ounces of water or mb9 juice Route: PO; 18:22 Follow up: Response: No adverse reaction mb9 Disposition Summary: 12/16/23 17:15 Hospitalization Ordered Notes: Hospitalization Status: Inpatient Admission kerry Provider: Donnell Alatorre kerry Condition: Stable kerry Problem: new kerry Symptoms: have improved kerry Bed/Room Type: Standard kerry Location: Telemetry/MedSurg (Inpatient)(12/17/23 19:03) cg Room Assignment: [facility](12/17/23 19:03) cg Diagnosis - Hypokalemia kerry - Pneumonia due to other specified bacteria kerry - Obesity, unspecified kerry - Anemia, unspecified kerry - Iron deficiency anemia, unspecified kerry - Streptococcal tonsillitis kerry - Weakness kerry Forms: - Medication Reconciliation Form kerry - SBAR form kerry - Leadership Thank You Letter [facility] NIH Stroke Scale - NIH Stroke Score Date: 12/16/2023 Time: 17:11 Total Score = 0 10. Dysarthria (speech clarity - read or repeat words) - 0(Normal) 11. Extinction and Inattention (visual/tactile/auditory/spatial/personal) - 0(No abnormality) 1a. Level of Consciousness (LOC) - 0(Alert) 1b. Level of Consciousness (LOC) (Month \T\ Age) - 0(Both) 1c. LOC Commands (Open \T\ Closes Eyes/Milk Treater) - 0(Both) 2. Best Gaze (Lateral Gaze Paresis) - 0(Normal) 3. Visual Field Loss - 0(No visual loss) 4. Facial Palsy - 0(Normal) 5a. Left Arm: Motor (10-second hold) - 0(No drift) 5b. Right Arm: Motor (10-second hold) - 0(No drift) 6a. Left Leg: Motor (5-second hold - always test supine) - 0(No drift) 6b. Right Leg: Motor (5-second hold - always test supine) - 0(No drift) 7. Limb Ataxia (finger/nose \T\ heel/ingram - test with eyes open) - 0(Absent) 8. Sensory Loss (pinprick arms/legs/face) - 0(Normal) 9. Best Language: Aphasia (description/naming/reading) - 0(No aphasia) Initials: [facility] Signatures: Dispatcher [employer] EDWilian Dyer MD MD cha Williams, Irene, RN RN iw Calderon, Audri, RN RN aa5 Enma Townsend RN RN cg Breneman, Mary Beth RN RN mb9 Corrections: (The following items were deleted from the chart) 14:54 14:21 PACKED RBC LEUKORED+[id number].BRZ ordered. [facility] EDMS 14:54 14:24 ABO/RH typing ordered. [facility] EDMS 14:54 14:24 Antibody Screen ordered. [facility] EDMS 19:24 17:15 Telemetry/MedSurg (Inpatient) [facility] cg 19:24 17:15 [facility] 19:37 17:44 Basic Metabolic Panel ordered. [facility] EDMS 19:37 17:44 Basic Metabolic Panel ordered. [facility] EDMS 12/17 19:03 12/16 19:24 [facility] ER HOLD cg cg 12/17 19:03 12/16 19:24 ERHOLD- cg cg
--- NOTE | 2023-12-16 17:16 | ER ---
Nurse's Notes [facility] Name: Vianca Casey Age: 53 yrs Sex: Female : 1970 Arrival Date: 12/16/2023 Time: 11:46 Bed 16 Private MD: Diagnosis: Hypokalemia;Pneumonia due to other specified bacteria;Obesity, unspecified;Anemia, unspecified;Iron deficiency anemia, unspecified;Streptococcal tonsillitis;Weakness Presentation: 12/16 12:19 Chief complaint: Patient states: been sick since Tuesday with vomiting and fever and iw cough, a lot of congestion, has just been laying in bed , not eating or drinking. Coronavirus screen: Client presents with at least one sign or symptom that may indicate coronavirus-19. Ebola Screen: Patient negative for fever greater than or equal to 101.5 degrees Fahrenheit, and additional compatible Ebola Virus Disease symptoms Patient denies exposure to infectious person. Patient denies travel to an Ebola-affected area in the 21 days before illness onset. No symptoms or risks identified at this time. Initial Sepsis Screen: Does the patient meet any 2 criteria? No. Patient's initial sepsis screen is negative. Does the patient have a suspected source of infection? No. Patient's initial sepsis screen is negative. Risk Assessment: Do you want to hurt yourself or someone else? Patient reports no desire to harm self or others. Onset of symptoms was December 11, 2023. 12:19 Method Of Arrival: Ambulatory iw 12:19 Acuity: MARY 3 iw Historical: - Allergies: 12:21 NKDA; iw - Home Meds: 12:21 None [Active]; iw - PMHx: 12:21 None; iw - PSHx: 12:21 Appendectomy; Cholecystectomy; hysterectomy; knee surgery; iw - Immunization history:: Adult Immunizations not up to date. - Social history:: Smoking status: Patient denies any tobacco usage or history of. Screenin:45 [facility] ED Fall Risk Assessment (Adult) History of falling in the last 3 months, mb9 including since admission No falls in past 3 months (0 pts) Confusion or Disorientation No (0 pts) Intoxicated or Sedated No (0 pts) Impaired Gait No (0 pts) Mobility Assist Device Used No (0 pt) Altered Elimination No (0 pt) Score/Fall Risk Level 0 - 2 = Low Risk Oriented to surroundings, Maintained a safe environment, Educated pt \T\ family on fall prevention, incl call for assistance when getting out of bed. Abuse screen: Denies threats or abuse. Nutritional screening: No deficits noted. Tuberculosis screening: No symptoms or risk factors identified. Assessment: 14:45 Reassessment: Pt brought back to ER room. mb9 15:10 Reassessment: Consent for RBCs transfusion signed by pt. mb9 15:10 General: Appears uncomfortable, ill, Behavior is cooperative. Pain: Denies pain. Neuro: mb9 Roque Agitation-Sedation Scale (RASS): 0 - Alert and Calm Level of Consciousness is awake, alert, obeys commands, Oriented to person, place, time, situation, Appropriate for age Reports dizziness, weakness. Cardiovascular: Heart tones S1 S2 present Patient's skin is warm and dry. Respiratory: Reports cough that is Airway is patent Respiratory effort is even, unlabored, Respiratory pattern is regular, symmetrical, Breath sounds are clear bilaterally. GI: Abdomen is round non-distended, Bowel sounds present X 4 quads. Abd is soft and non tender X 4 quads. Reports nausea. : No signs and/or symptoms were reported regarding the genitourinary system. EENT: Throat is reddened. Derm: Skin is intact, Skin is dry, Skin is pale, Skin temperature is cool. Musculoskeletal: Range of motion: intact in all extremities. 16:15 Reassessment: No changes from previously documented assessment. Patient and/or family mb9 updated on plan of care and expected duration. Pain level reassessed. Patient is alert, oriented x 3, equal unlabored respirations, skin warm/dry/pink. 16:40 Reassessment: Initiation of first RBC unit. mb9 17:30 Reassessment: No changes from previously documented assessment. Patient and/or family mb9 updated on plan of care and expected duration. Pain level reassessed. Patient is alert, oriented x 3, equal unlabored respirations, skin warm/dry/pink. 18:21 Reassessment: No changes from previously documented assessment. Patient and/or family mb9 updated on plan of care and expected duration. Pain level reassessed. Patient is alert, oriented x 3, equal unlabored respirations, skin warm/dry/pink. 18:55 Reassessment: Initiation of 2nd RBC unit. mb9 Vital Signs: 12:19 BP 124 / 68; Pulse 88; Resp 19; Temp 99.7; Pulse Ox 95% on R/A; Weight 91.63 kg; Height iw 5 ft. 2 in. ; 15:09 BP 166 / 85; Pulse 88; Resp 20; Pulse Ox 100% on R/A; mb9 16:40 BP 107 / 62; Pulse 81; Resp 16; Temp 98.4; Pulse Ox 96% on R/A; mb9 16:45 BP 105 / 60; Pulse 79; Resp 16; Temp 98.2; Pulse Ox 98% on R/A; mb9 16:50 BP 106 / 58; Pulse 79; Resp 18; Temp 98.4; Pulse Ox 100% on R/A; mb9 17:40 BP 108 / 66; Pulse 82; Resp 18; Temp 98.4; Pulse Ox 99% on R/A; mb9 18:55 BP 105 / 66; Pulse 76; Resp 20; Temp 98.4; Pulse Ox 100% ; mb9 19:00 BP 106 / 64; Pulse 79; Resp 20; Temp 98.4; Pulse Ox 100% ; mb9 20:25 BP 103 / 64; Pulse 78; Resp 18; Pulse Ox 100% ; mb9 20:57 BP 106 / 72; Pulse 74; Resp 18; Temp 98.4; Pulse Ox 100% on R/A; mb9 12:19 Body Mass Index 36.95 (91.63 kg, 157.48 cm) iw 16:40 basline VS for RBC transfusion mb9 18:55 Baseline VS for 2nd RBC unit mb9 Yessenia Coma Score: 17:11 Eye Response: spontaneous(4). Motor Response: obeys commands(6). Verbal Response: kerry oriented(5). Total: 15. NIH Stroke Scale Scores: 17:11 NIHSS Score: 0 kerry ED Course: 11:51 Patient arrived in ED. mg5 11:58 Wilian Lebron MD is Attending Physician. kerry 12:21 Triage completed. iw 12:22 Arm band placed on. iw 12:48 Inserted saline lock: 20 gauge in right antecubital area, using aseptic technique. aw1 13:00 Initial lab(s) drawn, by me, sent to lab. First set of blood cultures drawn by me, aw1 Second set of blood cultures drawn by me, EKG done, by ED staff. 13:17 XRAY Chest (1 view) In Process Unspecified. EDMS 14:39 TIBC Sent. bc6 14:39 Type And Screen Sent. bc6 14:40 Retic Count Sent. bc6 14:44 Sharonda Rainey, DAVE is Primary Nurse. mb9 14:45 Placed in gown. Bed in low position. Call light in reach. Side rails up X 1. Client mb9 placed on continuous cardiac and pulse oximetry monitoring. NIBP monitoring applied. personnel monitor on. 15:11 No provider procedures requiring assistance completed. mb9 15:18 Inserted saline lock: 20 gauge in left hand, using aseptic technique. mb9 17:12 Donnell Alatorre MD is Hospitalizing Provider. kerry 19:01 Patient admitted, IV remains in place. mb9 20:57 Report given to DAVE Martino. mb9 21:45 Provided Education on: need for admit. tm6 Administered Medications: 14:25 Drug: AZITHromycin PO 500 mg PO once Route: PO; aa5 15:09 Follow up: Response: No adverse reaction mb9 14:25 Drug: Ibuprofen PO 600 mg PO once Route: PO; aa5 15:09 Follow up: Response: No adverse reaction mb9 14:25 Drug: NS 0.9% IV 1000 ml IV at 1 bolus Per protocol; 1000 mL bolus Route: IV; Rate: 1 aa5 bolus; Site: left antecubital; 18:22 Follow up: Response: No adverse reaction; IV Status: Completed infusion mb9 14:25 Drug: Rocephin IV 2 grams IV at per protocol once; Given slow IV push per pharmarcy aa5 instructions Route: IV; Rate: per protocol; Site: left antecubital; 18:22 Follow up: Response: No adverse reaction; IV Status: Completed infusion mb9 14:25 Drug: Acetaminophen PO 650 mg PO once Route: PO; aa5 15:09 Follow up: Response: No adverse reaction mb9 15:00 Drug: Ondansetron IVP 4 mg IVP once; over 2 minutes Route: IVP; Site: right antecubital;mb9 16:54 Follow up: Response: No adverse reaction mb9 15:04 Drug: Pantoprazole IVP 40 mg IVP once Route: IVP; Site: right antecubital; mb9 16:54 Follow up: Response: No adverse reaction mb9 15:09 Drug: levofloxacin IVPB 500 mg 100 ml IVPB once over 60 mins Volume: 100 ml; Route: mb9 IVPB; Infused Over: 60 mins; Site: right antecubital; 16:59 Follow up: Response: No adverse reaction; IV Status: Completed infusion mb9 17:17 Drug: Potassium PO Effervescent Tablet 50 mEq PO once; dissolve in 4 ounces of water or mb9 juice Route: PO; 18:22 Follow up: Response: No adverse reaction mb9 Medication: 15:11 VIS not applicable for this client. mb9 Outcome: 17:15 Decision to Hospitalize by Provider. kerry 21:44 Admitted to ER Hold. Please see [facility] for further documentation. tm6 21:44 Condition: stable 21:44 Instructed on the need for admit, 12/17 19:58 Admitted to Med/surg accompanied by tech, via wheelchair, room 407, with chart, Report tm6 called to Piyush 19:59 Patient left the ED. tm6 NIH Stroke Scale - NIH Stroke Score Date: 12/16/2023 Time: 17:11 Total Score = 0 10. Dysarthria (speech clarity - read or repeat words) - 0(Normal) 11. Extinction and Inattention (visual/tactile/auditory/spatial/personal) - 0(No abnormality) 1a. Level of Consciousness (LOC) - 0(Alert) 1b. Level of Consciousness (LOC) (Month \T\ Age) - 0(Both) 1c. LOC Commands (Open \T\ Closes Eyes/Commercial Director) - 0(Both) 2. Best Gaze (Lateral Gaze Paresis) - 0(Normal) 3. Visual Field Loss - 0(No visual loss) 4. Facial Palsy - 0(Normal) 5a. Left Arm: Motor (10-second hold) - 0(No drift) 5b. Right Arm: Motor (10-second hold) - 0(No drift) 6a. Left Leg: Motor (5-second hold - always test supine) - 0(No drift) 6b. Right Leg: Motor (5-second hold - always test supine) - 0(No drift) 7. Limb Ataxia (finger/nose \T\ heel/ingram - test with eyes open) - 0(Absent) 8. Sensory Loss (pinprick arms/legs/face) - 0(Normal) 9. Best Language: Aphasia (description/naming/reading) - 0(No aphasia) Initials: kerry Signatures: Dispatcher [employer] EDMS Wilian Lebron MD MD cha Williams, Irene, RN RN iw Elena Medrano RN RN aa5 Brigid, Sharonda Castillo RN RN mb9 Mela Julian 6 Dara L[facility] Gunner Costello RN RN tm6 Corrections: (The following items were deleted from the chart) 12/16 14:54 14:39 ABO/RH typing drawn and sent. [facility] 14:54 14:39 Antibody Screen drawn and sent. [facility] 14:54 14:39 PACKED RBC LEUKORED+BB.LAB.BRZ drawn and sent. [facility]
--- NOTE | 2023-12-16 17:43 | P.HP ---
Certification for Inpatient Patient admitted to: Inpatient With expected LOS: >2 Midnights Patient will require the following post-hospital care: None Practitioner: I am a practitioner with admitting privileges, knowledge of patient current condition, hospital course, and medical plan of care. Services: Services provided to patient in accordance with Admission requirements found in Title 42 Section 412.3 of the Code of Federal Regulations <JamshidBailee - Last Filed: 12/16/23 19:51> Patient History Date of Service: 12/16/23 <LandryReveronica Cole - Last Filed: 12/16/23 18:11> Date of Service: 12/16/23 Reason for admission: pneumonia, symptomatic microcytic anemia History of Present Illness: Patient is a 53-year-old female with no reported medical problems who was in her normal state of health until about a month ago when she started craving ice. She reports a decreased appetite. She denies nausea vomiting, melena, abdominal pain. A few days ago she began having flulike symptoms. Last p.m. she began hallucinating and seeing little people that were not there. On assessment in the emergency room she is strep positive has a left lung pneumonia and is quite anemic. 2 units of packed red blood cells and antibiotics were ordered in the emergency room. On my assessment after the first unit Ms. Casey is feeling better, not hallucinating, and is oriented x 3. We will see her inpatient to evaluate her laboratory abnormalities. Home medications list reviewed: Yes - Past Medical/Surgical History Has patient received pneumonia vaccine in the past: No Diabetic: No -: Hysterectomy -: Appendectomy -: Cholecystectomy - Family History Father -: Lung disease, Cancer, Other (see notes) ( at 59yo) Mother -: Heart disease, Hypertension (at 54yo) - Social History Smoking Status: Never smoker Alcohol use: Yes CD- Drugs: No Caffeine use: Yes Place of Residence: Home (with her Daughter; ETOH 1-3 glasses of red wine q hs) <Bailee Breen - Last Filed: 12/16/23 19:51> Allergies No Known Drug Allergies Allergy (Unverified 06/26/15 22:29) Unknown Home Medications: Aspirin 12/17/11 Clonazepam 12/17/11 Metoprolol Tar 12/17/11 Paroxetine HCl 12/17/11 Pravastatin 12/17/11 Review of Systems 10-point ROS is otherwise unremarkable General: Weakness, Malaise, As per HPI Eyes: Unremarkable ENT: Unremarkable Respiratory: Cough, SOB with Excertion, As per HPI Cardiovascular: Light Headedness Gastrointestinal: Other (anorexia) Genitourinary: Unremarkable Musculoskeletal: Unremarkable Integumentary: Unremarkable Neurological: Confusion Lymphatics: Unremarkable <Bailee Breen - Last Filed: 12/16/23 19:51> Physical Examination - Studies Laboratory Data (last 24 hrs) 12/16/23 12/16/23 12/16/23 12:49 12:49 12:49 WBC 7.80 Hgb 6.9 L Hct 23.3 L Plt Count 184 PT 14.8 H INR 1.36 Sodium 130 L Potassium 3.1 L BUN 9 Creatinine 0.85 Glucose 112 H Magnesium 2.1 Total Bilirubin 1.8 H AST 56 H ALT 20 Alkaline Phosphatase 103 Microbiology Data (last 24 hrs): 12/16/23 12:24 Nasopharnyx Influenza Type A Antigen Screen - Final 12/16/23 12:24 Nasopharnyx Influenza Type B Antigen Screen - Final 12/16/23 12:24 Throat Group A Streptococcus Rapid Screen - Final <Donnell Alatorre - Last Filed: 12/16/23 18:11> - Physical Exam General: Alert, In no apparent distress, Oriented x3 HEENT: Atraumatic, Normocephalic Neck: Supple, 2+ carotid pulse no bruit Respiratory: Rhonchi/gurgles, Other (harsh cough) Cardiovascular: Normal pulses, Regular rate/rhythm, Other (prolonged QTc) Capillary refill: <2 Seconds Gastrointestinal: Soft and benign Musculoskeletal: No clubbing Integumentary: No rashes Neurological: Normal speech, Other (gait not tested) Lymphatics: No axilla or inguinal lymphadenopathy External genitalia: Deferred Rectal: Deferred - Studies Laboratory Data (last 24 hrs) 12/16/23 12/16/23 12/16/23 12:49 12:49 12:49 WBC 7.80 Hgb 6.9 L Hct 23.3 L Plt Count 184 PT 14.8 H INR 1.36 Sodium 130 L Potassium 3.1 L BUN 9 Creatinine 0.85 Glucose 112 H Magnesium 2.1 Total Bilirubin 1.8 H AST 56 H ALT 20 Alkaline Phosphatase 103 Microbiology Data (last 24 hrs): 12/16/23 12:24 Nasopharnyx Influenza Type A Antigen Screen - Final 12/16/23 12:24 Nasopharnyx Influenza Type B Antigen Screen - Final 12/16/23 12:24 Throat Group A Streptococcus Rapid Screen - Final <Bailee Breen - Last Filed: 12/16/23 19:51> Assessment and Plan Physician Review Additional Text: Pt seen and examined. I agree with the note by the ROOM CLEANER. Pt is a 53yo female with no past medical history who presents with flu like symptoms (SOB, fever, nausea, rhinorrhea, sore throat) for the past 3 days. On admission, lab studies show WBC 7.8, Hgb 6.9, K 3.1, Cr 0.85, BNP 222, vitamin B12 1137. CXR shows left lung pn eumonia. Pt also complained of complains of dizziness and lightheadedness. At bedside, pt is in NAD. A/P: Left lung pneumonia: Will give rocephin and azithro and follow up blood cx. Will check lactate Anemia: FOBT is negative. Will give 2 units of blood. Monitor H/H. Iron studies show iron deficiency. Will give ferrous sulfate Elevated BNP: BNP is 222. Will follow up Echo. Hypokalemia: K is 3.1. Will replete and monitor. DVT ppx: SCD Code: full <Donnell Alatorre - Last Filed: 12/16/23 18:11> - Plan Symptomatic microcytic anemia: 2 units O+ PRBCs Iron level 12 Trend H/H protonix iv BID Hypokalemia/Hyponatremia: Blood transfusion Trend electrolytes and replete per protocol Elevated BNP, prolonged QT: Lasix post blood transfusion telemetry avoid QT prolonging drugs Consult cardiology - both Parents with early demise T. bili elevated: repeat LFTs in AM, consider repeat CT abd/pelvis CT abd/pelvis 2021 Dictated By: Sean Redman MD 05/31/22 5037 FINDINGS: Fatty liver. Cholecystectomy. Spleen, pancreas, adrenals and kidneys unremarkable. Appendectomy. Hysterectomy. No adnexal mass. There is no evidence of diverticulitis. IMPRESSION: No acute abnormality is displayed. Pneumonia: Rocephin 1 gm IVPB daily Zithromax 500mg IVPB daily Albuterol/Atrovent q4h prn [place] prn DVT prophylaxis: SCDs Discharge Plan: Home Plan to discharge in: 72 Hours - Advance Directives Does patient have a Living Will: No Does patient have a Durable POA for Healthcare: No - Code Status/Comfort Care Code Status Assessed: Yes Code Status: Full Code <Bailee Breen - Last Filed: 12/16/23 19:51>
[2023-12-16] MEDS: DIPHENHYDRAMINE 50 MG/ML VIAL IV ONE (17:46)
[2023-12-16] MEDS ORDERED: NA CHLORIDE 0.9% 250 ML IV SCH (18:00)
[2023-12-16] MEDS: FUROSEMIDE 20 MG/ 2ML VIAL IV ONE (18:00)
[2023-12-16] MEDS ORDERED: SODIUM CHLORIDE 0.9% 10ML INJ IV PRN (19:30)
[2023-12-16] MEDS: FERROUS SULFATE 325 MG TAB PO SCH (21:00)
[2023-12-16] MEDS ORDERED: FUROSEMIDE 20 MG/ 2ML VIAL ONE (23:42)
[2023-12-16] MEDS ORDERED: HYDROCODONE/APAP 5/325 MG TAB ONE (23:57)
[2023-12-17] MEDS: HYDROCODONE/APAP 5/325 MG TAB PO PRN (00:01)
[2023-12-17] MEDS ORDERED: ONDANSETRON 4 MG/2 ML VIAL ONE (01:06)
[2023-12-17] MEDS: ONDANSETRON 4 MG/2 ML VIAL IV PRN (01:14)
[2023-12-17 01:20] VITALS: BMI 36.9
[2023-12-17 04:36] LABS: Absolute Lymphocytes (CBC) 1.1 K/uL (0.7-4.9); Hematocrit 27.7 % (36.0-45.0); Lymphocytes % 16.9 % (15.3-44.8); MCV 70.6 fL (80-100); MPV 8.6 fL (7.6-11.3); Platelets 126 thou/uL (152-406); RBC Red Blood Cell Count 3.92 M/uL (3.86-4.86)
[2023-12-17 05:05] LABS: Platelet Estimate DECR; White Blood Cell Scan OK (OK)
[2023-12-17 05:06] LABS: Anisocytosis 3+; Blood Morphology Comment NOTED (NOT SEEN); Hypochromasia 1+; Target Cells 1+
[2023-12-17 05:10] LABS: Albumin 2.6 g/dL (3.4-5.0); Bilirubin Total 1.3 mg/dL (0.2-1.0); Potassium 3.2 mEq/L (3.5-5.1); Protein, Total 6.7 g/dL (6.4-8.2); Thyroid Stimulating Hormone 3.82 uIU/mL (0.358-3.740)
[2023-12-17] MEDS: POTASSIUM CL SA 10 MEQ TAB PO ONE ×2 (05:21→11:14)
[2023-12-17] MEDS ORDERED: POTASSIUM CL SA 10 MEQ TAB PO ONE ×2 (05:46→09:04)
[2023-12-17] MEDS: CEFTRIAXONE 1,000 MG in NA CHLORIDE 0.9% 50 ML IVPB SCH (09:00)
[2023-12-17] MEDS: PANTOPRAZOLE 40 MG INJ IVP SCH (09:00)
[2023-12-17] MEDS ORDERED: CEFTRIAXONE 1000 MG/VIAL ONE (09:03)
[2023-12-17] MEDS ORDERED: PANTOPRAZOLE 40 MG INJ ONE (09:03)
[2023-12-17] MEDS ORDERED: NA CHLORIDE 0.9% 100 ML ONE (09:04)
[2023-12-17] MEDS ORDERED: HYDROCODONE/APAP 5/325 MG TAB ONE ×2 (09:34→16:41)
--- NOTE | 2023-12-17 10:41 | P.PN ---
Subjective Date of Service: 12/18/23 Chief Complaint: pneumonia, symptomatic microcytic anemia Subjective: Improving <Bailee Breen - Last Filed: 12/18/23 08:56> Date of Service: 12/18/23 <Donnell Alatorre - Last Filed: 12/18/23 11:30> Review of Systems 10-point ROS is otherwise unremarkable General: As per HPI Eyes: Unremarkable ENT: Unremarkable Respiratory: As per HPI Gastrointestinal: Unremarkable Genitourinary: Unremarkable Musculoskeletal: Unremarkable Integumentary: Unremarkable Neurological: As per HPI Lymphatics: Unremarkable <Bailee Breen - Last Filed: 12/18/23 08:56> Physical Examination - Vital Signs Temperature: 98.3 F Blood Pressure: 98/65 Pulse: 69 Respirations: 19 Pulse Ox (%): 98 - Physical Exam General: Alert, In no apparent distress, Oriented x3 HEENT: Atraumatic, Normocephalic Neck: Supple, 2+ carotid pulse no bruit Respiratory: Normal air movement, Rhonchi/gurgles, Other (mild cough, improved from yesterday) Cardiovascular: No edema, Normal pulses, Regular rate/rhythm Capillary refill: <2 Seconds Gastrointestinal: Soft and benign Musculoskeletal: No clubbing, No swelling Integumentary: No rashes, No breakdown Neurological: Normal speech, Normal strength at 5/5 x4 extr Lymphatics: No axilla or inguinal lymphadenopathy External genitalia: Deferred - Studies Laboratory Data (last 24 hrs) 12/16/23 12/16/23 12/16/23 12:49 12:49 12:49 WBC 7.80 Hgb 6.9 L Hct 23.3 L Plt Count 184 PT 14.8 H INR 1.36 Sodium 130 L Potassium 3.1 L BUN 9 Creatinine 0.85 Glucose 112 H Magnesium 2.1 Total Bilirubin 1.8 H AST 56 H ALT 20 Alkaline Phosphatase 103 Microbiology Data (last 24 hrs): 12/16/23 12:24 Nasopharnyx Influenza Type A Antigen Screen - Final 12/16/23 12:24 Nasopharnyx Influenza Type B Antigen Screen - Final 12/16/23 12:24 Throat Group A Streptococcus Rapid Screen - Final <Bailee Breen - Last Filed: 12/18/23 08:56> Assessment And Plan - Plan Symptomatic microcytic anemia: 2 units O+ PRBCs Iron level 12 Trend H/H 6.9 -> 8.8 protonix iv BID Hypokalemia/Hyponatremia: Blood transfusion Trend electrolytes and replete per protocol Elevated BNP, prolonged QT: Lasix post blood transfusion telemetry avoid QT prolonging drugs Consult cardiology - both Parents with early demise T. bili elevated: repeat LFTs in AM, consider repeat CT abd/pelvis CT abd/pelvis 2021 Dictated By: Sean Redman MD 05/31/22 0827 FINDINGS: Fatty liver. Cholecystectomy. Spleen, pancreas, adrenals and kidneys unremarkable. Appendectomy. Hysterectomy. No adnexal mass. There is no evidence of diverticulitis. IMPRESSION: No acute abnormality is displayed. Pneumonia: Rocephin 1 gm IVPB daily Zithromax 500mg IVPB daily Albuterol/Atrovent q4h prn [place] prn DVT prophylaxis: SCDs Discharge Plan: Home Plan to discharge in: 48 Hours - Code Status/Comfort Care Code Status Assessed: Yes Code Status: Full Code <Bailee Breen - Last Filed: 12/18/23 08:56> - Plan Pt seen and examined. I agree with the note by the FLOAT REMOVER. Will continue rocephin and azithro for pna. Will give 2 units of blood and replete electrolytes. <Donnell Alatorre - Last Filed: 12/18/23 11:30>
[2023-12-18 07:14] LABS: Absolute Lymphocytes (CBC) 0.5 K/uL (0.7-4.9); Hematocrit 26.8 % (36.0-45.0); Lymphocytes % 20.7 % (15.3-44.8); MCV 71.3 fL (80-100); MPV 8.7 fL (7.6-11.3); Platelets 120 thou/uL (152-406); RBC Red Blood Cell Count 3.76 M/uL (3.86-4.86)
[2023-12-18 07:29] LABS: Albumin 2.6 g/dL (3.4-5.0); Potassium 3.7 mEq/L (3.5-5.1); Protein, Total 6.4 g/dL (6.4-8.2)
[2023-12-18] MEDS: HYDROCODONE/CHLORPHEN 5 ML/OSYR PO PRN (07:54)
[2023-12-18 08:19] LABS: Platelet Estimate DECR; White Blood Cell Scan OK (OK)
[2023-12-18 08:20] LABS: Anisocytosis 1+; Blood Morphology Comment NOTED (NOT SEEN); Hypochromasia 1+
[2023-12-18] MEDS: POTASSIUM CL SA 10 MEQ TAB PO ONE (08:50)
--- NOTE | 2023-12-18 08:54 | P.PN ---
Date of Service: 12/18/23 Subjective Date of Service: 12/18/23 Chief Complaint: pneumonia, symptomatic microcytic anemia Subjective: Improving no acute issues overnight Review of Systems 10-point ROS is otherwise unremarkable General: As per HPI Eyes: Unremarkable ENT: Unremarkable Respiratory: As per HPI Gastrointestinal: Unremarkable Genitourinary: Unremarkable Musculoskeletal: Unremarkable Integumentary: Unremarkable Neurological: As per HPI Lymphatics: Unremarkable Physical Examination - Vital Signs Temperature: 98.3 F Blood Pressure: 98/65 Pulse: 69 Respirations: 19 Pulse Ox (%): 98 - Physical Exam General: Alert, In no apparent distress, Oriented x3 HEENT: Atraumatic, Normocephalic Neck: Supple, 2+ carotid pulse no bruit Respiratory: Normal air movement, Rhonchi/gurgles left lower, mild cough "making her head hurt" Cardiovascular: No edema, Normal pulses, Regular rate/rhythm Capillary refill: <2 Seconds Gastrointestinal: Soft and benign Musculoskeletal: No clubbing, No swelling Integumentary: No rashes, No breakdown Neurological: Normal speech, Normal strength at 5/5 x4 extr Lymphatics: No axilla or inguinal lymphadenopathy External genitalia: Deferred - Studies Laboratory Data (last 24 hrs) 12/16/23 12/16/23 12/16/23 12:49 12:49 12:49 WBC 7.80 Hgb 6.9 L Hct 23.3 L Plt Count 184 PT 14.8 H INR 1.36 Sodium 130 L Potassium 3.1 L BUN 9 Creatinine 0.85 Glucose 112 H Magnesium 2.1 Total Bilirubin 1.8 H AST 56 H ALT 20 Alkaline Phosphatase 103 Microbiology Data (last 24 hrs): 12/16/23 12:24 Nasopharnyx Influenza Type A Antigen Screen - Final 12/16/23 12:24 Nasopharnyx Influenza Type B Antigen Screen - Final 12/16/23 12:24 Throat Group A Streptococcus Rapid Screen - Final Assessment And Plan Symptomatic microcytic anemia: 2 units O+ PRBCs Iron level 12 Trend H/H 6.9 -> 8.3 Continue Ferrous sulfate protonix iv BID Hypokalemia/Hyponatremia: Blood transfusion Trend electrolytes and replete per protocol Elevated BNP, prolonged QT: Lasix post blood transfusion telemetry avoid QT prolonging drugs Consult cardiology - both Parents with early demise T. bili elevated: repeat LFTs in AM, consider repeat CT abd/pelvis CT abd/pelvis 2021 Dictated By: Sean Redman MD 05/31/22 0827 FINDINGS: Fatty liver. Cholecystectomy. Spleen, pancreas, adrenals and kidneys unremarkable. Appendectomy. Hysterectomy. No adnexal mass. There is no evidence of diverticulitis. IMPRESSION: No acute abnormality is displayed. Pneumonia: Rocephin 1 gm IVPB daily Zithromax 500mg IVPB daily Albuterol/Atrovent q4h prn [place] prn DVT prophylaxis: SCDs Discharge Plan: Home Plan to discharge in: 24 Hours - Code Status/Comfort Care Code Status Assessed: Yes Code Status: Full Code <Bailee Breen - Last Filed: 12/18/23 08:55> Pt seen and examined. I agree with the note by the PAVING CONTRACTOR. Continue rocephin and azithro for pneumonia. Hgb improved to 8.3 s/p 2 units of blood. Will monitor electrolytes. Pt has pancytopenia. Will monitor blood cell counts. <Donnell Alatorre - Last Filed: 12/18/23 11:36>
[2023-12-18] MEDS: IPRATROPIUM BROM 0.5MG/2.5ML NEB SCH (09:35)
[2023-12-18] MEDS: ALBUTEROL 2.5 MG/3 ML NEB SOL NEB SCH (09:36)
[2023-12-18] MEDS: ACETAMINOPHEN 325 MG TABLET PO PRN (20:46)
[2023-12-19 06:25] LABS: Absolute Lymphocytes (CBC) 0.4 K/uL (0.7-4.9); Hematocrit 25.7 % (36.0-45.0); Lymphocytes % 22.7 % (15.3-44.8); MPV 8.4 fL (7.6-11.3); Platelets 120 thou/uL (152-406); RBC Red Blood Cell Count 3.62 M/uL (3.86-4.86)
[2023-12-19 06:33] LABS: Albumin 2.6 g/dL (3.4-5.0); Bilirubin Total 0.9 mg/dL (0.2-1.0); Potassium 4.2 mEq/L (3.5-5.1); Protein, Total 6.5 g/dL (6.4-8.2)
--- NOTE | 2023-12-19 08:11 | P.PN ---
Subjective Date of Service: 12/19/23 Chief Complaint: pneumonia, symptomatic microcytic anemia Admitted for symptomatic anemia, received 2 units of O+ blood Reports wheezing, nonproductive cough, abdominal pain, no reported fever - Physical Exam General: Alert, In no apparent distress, Oriented x3 HEENT: Atraumatic, Normocephalic Neck: Supple, 2+ carotid pulse no bruit Respiratory: Normal air movement, inspiratory expiratory wheezes, nonproductive cough Cardiovascular: No edema, Normal pulses, Regular rate/rhythm Capillary refill: <2 Seconds Gastrointestinal: Generalized epigastric tenderness, no rebound tenderness Musculoskeletal: No clubbing, No swelling Integumentary: No rashes, No breakdown Neurological: Normal speech, Normal strength at 5/5 x4 extr Lymphatics: No axilla or inguinal lymphadenopathy Review of Systems per HPI Physical Examination - Vital Signs Temperature: 98.0 F Blood Pressure: 98/57 Pulse: 80 Respirations: 16 Pulse Ox (%): 96 Assessment And Plan - Plan Assessment plan Symptomatic anemia improved Microcytic anemia improving Trend H&H, transfuse hemoglobin less than 7 6.9, 8.8, 8.3, 7.9 Iron, vitamin C GI consult to evaluate for GI bleeding Acute hypoxic respiratory failure secondary to pneumonia pneumonia improving Chest x-ray IMPRESSION: Left lower lung new airspace opacification, concerning for early pneumonia O2 2 L keep sats greater than 90% antibiotics, nebulizers, steroids Streptococcal tonsillitis Rocephin, Albuterol Atrovent CTA of the chest abdomen pelvisIMPRESSION: Patchy left upper lobe airspace opacities most compatible with pneumonia. Nonspecific mild retroperitoneal fat stranding possibly presenting edema and trace free fluid in the pelvis. Findings could relate to an ongoing infectious or inflammatory process Elevated B12 Hypothyroidism Obesity B12 1137 TSH 3.824, free T41.94 Start Synthroid daily need to follow-up with PCP to recheck thyroid level and B12 Hypokalemia improved Hyponatremia IV fluids, trend electrolytes replace as needed Sodium 130, repeat 139 with IV fluids Elevated BNP, prolonged QT Lasix, Consider cardiology consult Elevated T. bili LFTs in a.m., consider CT of the abdomen pelvis, Hypocalcemia Trend electrolytes replace as needed Full code DVT SCDs Diet cardiac Discharge Plan: Home - Code Status/Comfort Care Code Status: Full Code Critical Care: No Time Spent Managing PTS Care (In Minutes): 35
[2023-12-19] MEDS: CETIRIZINE HCL 5 MG TABLET PO PRN (09:02)
[2023-12-19] MEDS: METHYLPREDNISOLONE 125 MG INJ IV ONE (12:14)
[2023-12-19] MEDS: HYDROMORPHONE HCL 0.5 MG/0.5 ML INJ IV ONE (12:14)
--- NOTE | 2023-12-19 14:22 | RAD REPORT ---
EXAM DESCRIPTION: CT - Chest Abdomen Pelvis W Cont - 12/19/2023 1:04 pm CLINICAL HISTORY: SOB, PNA, abd pain COMPARISON: Chest Single View dated 12/16/2023; Abdomen Pelvis W Contrast dated 05/31/2022; Chest For Pe Angio dated 05/31/2022 TECHNIQUE: Thin axial CT images of the chest, abdomen, and pelvis, performed following intravenous a dministration of 100mL Isovue-300. Multiplanar reformats were generated and reviewed. All CT scans are performed using dose optimization technique as appropriate and may include automated exposure control or mA/KV adjustment according to patient size. FINDINGS: Patchy airspace opacities in the anterior left upper lobe, with limited areas of air bronc hogram, corresponding to the radiographic finding.No pleural or pericardial effusion.No intrathoracic adenopathy. The liver, pancreas, adrenal glands and kidneys are within normal limits. Spleen is enlarged measurin g 18 cm in long axis, this is a new finding. Trace free fluid layering in the pelvis. Mild nonspecific retroperitoneal fat stranding most notably at the level of the epigastrium. No bowel obstruction, free air, abnormal fluid collections, or absce ss. Appendix is likely surgically removed. No pathologic lymphadenopathy in the abdomen or pelvis. No worrisome osseous finding. IMPRESSION: Patchy left upper lobe airspace opacities most compatible with pneumonia. Splenomegaly, a new finding since the 05/31/2022 CT. Nonspecific mild retroperitoneal fat stranding possibly presenting edema and trace free fluid in the pelvis. Findings could relate to an ongoing infectious or inflammatory process.
[2023-12-19] MEDS: METHYLPREDNISOLONE 125 MG INJ IV SCH (17:51)
[2023-12-19] MEDS: ASCORBIC ACID 500 MG TABLET PO SCH (21:08)
[2023-12-19] MEDS: BENZONATATE 100 MG CAP PO PRN (21:08)
--- NOTE | 2023-12-20 03:21 | CON ---
Date of Consultation: 12/19/2023 Reason For Consultation: Prolonged QTc interval at 566. History Of Present Illness: A 53-year-old female presented with generalized fatigue, cough, short of breath, found to be severely anemic and was diagnosed with pneumonia. EKG was done and QTc interval was elevated. The patient was taken over the counter medications for her upper respiratory tract in [facility], mainly NyQuil. She is not known to have any cardiac disease or cardiac history and no chest pain or other complaints. Past Medical History: None. Medications: Refer reconciliation sheet for detailed list. Allergies: NO KNOWN DRUG ALLERGIES. Past Surgical History: 1.Hysterectomy. 2.Appendectomy. 3.Cholecystectomy. Family History: Lung cancer. No premature coronary artery disease. Social History: She does not smoke or drink. Does not use any drugs. Review of Systems: All systems reviewed and negative except as mentioned above in HPI. Physical Examination: Vital Signs: Reviewed. Head and Neck: Pupils are equal and reactive to light. Intact eye movements. No JVD. No cervical lymphadenopathy. Neck: Supple. Thyroid is not enlarged. Lungs: Clear to auscultation bilaterally. No rhonchi, rales, or crackles. No accessory muscle use. Heart: Regular rate and rhythm. No extra sounds. Abdomen: Soft. Nontender. Bowel sounds positive. No organomegaly. No masses or hernia. No rigid ity or rebound. Extremities: No edema, clubbing, cyanosis. Intact pulses. Skin: No rash or nodules. Neurologic: Alert, awake, oriented x3. No acute deficit appreciated. Investigations: On admission, potassium is 3.1, now it is 4.2, BUN 7, creatinine 0.62, and cardiac e nzymes are negative. Hemoglobin is 7.9, on admission it was 6.9. Assessment/recommendation: 1.Prolonged QTc interval of 522 at presentation. This is likely due to hypokalemia and with the pot assium replacement. I repeated EKG today on her and it is normal. Obtain an echocardiogram and we w ill follow the patient. Make sure her potassium and magnesium both remain within the normal range. 2.Pneumonia, on wide-spectrum antibiotics. 3.Anemia. Recommend GI evaluation and she is status post transfusion. Cardiology will sign off and we will see the patient on an as needed basis. SR/MODL Voice ID: [id number] Report ID: [id number]
[2023-12-20] MEDS: LEVOTHYROXINE SOD 0.025 MG TAB PO SCH (06:14)
[2023-12-20 07:00] LABS: Absolute Lymphocytes (CBC) 0.2 K/uL (0.7-4.9); Hematocrit 24.5 % (36.0-45.0); Lymphocytes % 18.6 % (15.3-44.8); MCV 71.9 fL (80-100); MPV 8.6 fL (7.6-11.3); Platelets 129 thou/uL (152-406); RBC Red Blood Cell Count 3.41 M/uL (3.86-4.86)
[2023-12-20 07:16] LABS: Magnesium 2.4 mg/dL (1.6-2.4); Potassium 3.8 mEq/L (3.5-5.1)
[2023-12-20 07:22] LABS: Phosphorus 2.9 mg/dL (2.5-4.9)
--- NOTE | 2023-12-20 07:58 | P.PN ---
Subjective Date of Service: 12/20/23 Chief Complaint: pneumonia, symptomatic microcytic anemia Subjective: Improving Admitted for symptomatic anemia, received 2 units of O+ blood, no reported rectal bleeding Pulmonary consulted for pneumonia, nonproductive cough, abdominal pain, no reported fever - Physical Exam General: Alert, In no apparent distress, Oriented x3 HEENT: Atraumatic, Normocephalic Neck: Supple, 2+ carotid pulse no bruit Respiratory: Normal air movement, inspiratory expiratory wheezes, nonproductive cough Cardiovascular: No edema, Normal pulses, Regular rate/rhythm Capillary refill: <2 Seconds Gastrointestinal: Generalized epigastric tenderness, no rebound tenderness Musculoskeletal: No clubbing, No swelling Integumentary: No rashes, No breakdown Neurological: Normal speech, Normal strength at 5/5 x4 extr Lymphatics: No axilla or inguinal lymphadenopathy Review of Systems PER HPI Physical Examination - Vital Signs Temperature: 96.9 F Blood Pressure: 106/55 Pulse: 93 Respirations: 20 Pulse Ox (%): 96 Assessment And Plan - Plan Assessment plan Symptomatic anemia improved Microcytic anemia improving Trend H&H, transfuse hemoglobin less than 7 6.9, 8.8, 8.3, 7.9, 7.6 Iron, vitamin C GI consult to evaluate for GI bleeding No recent colonoscopy EGD Leukopenia WBCs trending down 7.80-6.8-2.3-1.6-1.2 Discussed with attending steroids discontinued for immunosuppression Acute hypoxic respiratory failure secondary to pneumonia pneumonia improving Chest x-ray IMPRESSION: Left lower lung new airspace opacification, concerning for early pneumonia O2 2 L keep sats greater than 90% antibiotics, nebulizers, steroids COVID-negative Pulmonary consulted Streptococcal tonsillitis Rocephin, Albuterol Atrovent CTA of the chest abdomen pelvisIMPRESSION: Patchy left upper lobe airspace opacities most compatible with pneumonia. Nonspecific mild retroperitoneal fat stranding possibly presenting edema and trace free fluid in the pelvis. Findings could relate to an ongoing infectious or inflammatory process Elevated B12 Hypothyroidism Obesity B12 1137 TSH 3.824, free T41.94 Start Synthroid daily need to follow-up with PCP to recheck thyroid level and B12 Hypokalemia improved Hyponatremia IV fluids, trend electrolytes replace as needed Sodium 130, repeat 139 with IV fluids Elevated BNP, prolonged QT Lasix, BNP 222, 202 Consider cardiology consult Elevated T. bili LFTs in a.m., consider CT of the abdomen pelvis, Hypocalcemia Trend electrolytes replace as needed Full code DVT SCDs Diet cardiac Discharge Plan: Home - Code Status/Comfort Care Code Status: Full Code Critical Care: No Time Spent Managing PTS Care (In Minutes): 35
[2023-12-20] MEDS: POTASSIUM CL SA 10 MEQ TAB PO ONE (08:04)
[2023-12-20 08:32] LABS: Anisocytosis 2+; Blood Morphology Comment NOTED (NOT SEEN); Hypochromasia 1+; Platelet Estimate DECR; Polychromasia 1+; White Blood Cell Scan OK (OK)
[2023-12-20] MEDS ORDERED: SOD FERRIC GLUC COMPLX/SUCROSE 125 MG in NA CHLORIDE 0.9% 100 ML IV SCH (14:00)
[2023-12-21 06:56] LABS: Absolute Lymphocytes (CBC) 0.3 K/uL (0.7-4.9); Hematocrit 24.7 % (36.0-45.0); Lymphocytes % 4.5 % (15.3-44.8); MCV 72.7 fL (80-100); MPV 8.7 fL (7.6-11.3); Platelets 184 thou/uL (152-406); RBC Red Blood Cell Count 3.39 M/uL (3.86-4.86)
--- NOTE | 2023-12-21 07:03 | P.PN ---
Subjective Date of Service: 12/21/23 Chief Complaint: pneumonia, symptomatic microcytic anemia Admitted for symptomatic anemia, received 2 units of O+ blood, no reported rectal bleeding Pulmonary consulted for pneumonia, nonproductive cough, abdominal pain, no reported fever - Physical Exam General: Alert, In no apparent distress, Oriented x3 HEENT: Atraumatic, Normocephalic Neck: Supple, 2+ carotid pulse no bruit Respiratory: Normal air movement, inspiratory expiratory wheezes, nonproductive cough Cardiovascular: No edema, Normal pulses, Regular rate/rhythm Capillary refill: <2 Seconds Gastrointestinal: Generalized epigastric tenderness, no rebound tenderness Musculoskeletal: No clubbing, No swelling Integumentary: No rashes, No breakdown Neurological: Normal speech, Normal strength at 5/5 x4 extr Lymphatics: No axilla or inguinal lymphadenopathy Physical Examination - Vital Signs Temperature: 97.9 F Blood Pressure: 103/53 Pulse: 91 Respirations: 18 Pulse Ox (%): 98 Assessment And Plan - Plan Assessment plan Symptomatic anemia improved Microcytic anemia improving Trend H&H, transfuse hemoglobin less than 7 6.9, 8.8, 8.3, 7.9, 7.6 Iron, vitamin C GI consult to evaluate for GI bleeding No recent colonoscopy EGD Leukopenia WBCs trending down 7.80-6.8-2.3-1.6-1.2 Discussed with attending steroids discontinued for immunosuppression Acute hypoxic respiratory failure secondary to pneumonia pneumonia improving Chest x-ray IMPRESSION: Left lower lung new airspace opacification, concerning for early pneumonia O2 2 L keep sats greater than 90% antibiotics, nebulizers, steroids COVID-negative Pulmonary consulted Streptococcal tonsillitis Rocephin, Albuterol Atrovent CTA of the chest abdomen pelvisIMPRESSION: Patchy left upper lobe airspace opacities most compatible with pneumonia. Nonspecific mild retroperitoneal fat stranding possibly presenting edema and trace free fluid in the pelvis. Findings could relate to an ongoing infectious or inflammatory process Elevated B12 Hypothyroidism Obesity B12 1137 TSH 3.824, free T41.94 Start Synthroid daily need to follow-up with PCP to recheck thyroid level and B12 Hypokalemia improved Hyponatremia IV fluids, trend electrolytes replace as needed Sodium 130, repeat 139 with IV fluids Elevated BNP, prolonged QT Lasix, BNP 222, 202 Consider cardiology consult Elevated T. bili LFTs in a.m., consider CT of the abdomen pelvis, Hypocalcemia Trend electrolytes replace as needed Full code DVT SCDs Diet cardiac
[2023-12-21 07:09] LABS: Magnesium 2.4 mg/dL (1.6-2.4); Potassium 3.7 mEq/L (3.5-5.1)
[2023-12-21 10:11] VITALS: O2SAT 96
--- NOTE | 2023-12-21 12:07 | P.CNS ---
Date of Consult: 12/20/23 Reason for Consult: Left lung pneumonia Chief Complaint: pneumonia, symptomatic microcytic anemia History of Present Illness: Is 53 years of age and with anemia being well for the past 2 weeks any cough shortness of breath she has pain on the right side was transfused and was found to have a left lung pneumonia anemic although she denies any hematemesis or melanic stools noted some hallucination just feels weak Allergies No Known Drug Allergies Allergy (Verified 12/17/23 12:55) Unknown Home Medications: NK [No Home Meds] 12/17/23 - Past Medical/Surgical History Diabetic: No -: Hysterectomy -: Appendectomy -: Cholecystectomy - Family History Father Medical History: Lung disease, Cancer, Other (see notes) Mother Medical History: Heart disease, Hypertension - Social History Alcohol use: Yes CD- Drugs: No Caffeine use: Yes Place of Residence: Home Review of Systems 10-point ROS is otherwise unremarkable General: Weakness Physical Examination Temp Pulse Resp BP Pulse Ox 97.5 F 90 18 105/55 L 98 12/21/23 08:00 12/21/23 08:00 12/21/23 08:00 12/21/23 08:00 12/21/23 08:00 General: Alert, In no apparent distress, Oriented x3 HEENT: Atraumatic Neck: Supple Respiratory: Clear to auscultation bilaterally Cardiovascular: No edema, Normal pulses, Regular rate/rhythm Gastrointestinal: Normal bowel sounds, Soft and benign - Problems (1) Pneumonia Current Visit: Yes Status: Acute Plan: It is 53 years of age admitted with microcytic anemia has a left lung pneumonia patient has microcytic anemia suspect is from bleeding she will need an endoscopy and a colonoscopy his chemistries are unremarkable changed to p.o. Augmentin years or so far negative signs oxygenation satisfactory plan for discharge significant changes noted on abdominal CT scan Qualifiers: Pneumonia type: due to unspecified organism
[2023-12-21 13:59] VITALS: BP 108/58; TEMP 97.2
--- NOTE | 2023-12-21 17:18 | P.DS ---
Admission Date: 12/16/23 Discharge Date: 12/21/23 Disposition: ROUTINE DISCHARGE Discharge Condition: FAIR Reason for Admission: pneumonia, symptomatic microcytic anemia Brief History of Present Illness: 53-year-old female with no reported medical problems who was in her normal state of health until about a month ago when she started craving ice. She reports a decreased appetite. She denies nausea vomiting, melena, abdominal pain. A few days ago she began having flulike symptoms. Last p.m. she began hallucinating and seeing little people that were not there. On assessment in the emergency room she is strep positive has a left lung pneumonia and is quite anemic. 2 units of packed red blood cells and antibiotics were ordered in the emergency room. On my assessment after the first unit Ms. Casey is feeling better, not hallucinating, and is oriented x 3. We will see her inpatient to evaluate her laboratory abnormalities. - Physical Exam General: Alert, In no apparent distress, Oriented x3 HEENT: Atraumatic, Normocephalic Neck: Supple, 2+ carotid pulse no bruit Respiratory: Normal air movement, inspiratory expiratory wheezes, nonproductive cough Cardiovascular: No edema, Normal pulses, Regular rate/rhythm Capillary refill: <2 Seconds Gastrointestinal: Generalized epigastric tenderness, no rebound tenderness Musculoskeletal: No clubbing, No swelling Integumentary: No rashes, No breakdown Neurological: Normal speech, Normal strength at 5/5 x4 extr Lymphatics: No axilla or inguinal lymphadenopathy Hospital Course: 53-year-old female patient presented with anemia, Was noted to have pneumonia, anemia. Patient was evaluated by legal recruiter, plan to discharge home on p.o. antibiotics, albuterol inhaler. Condition improved with IV antibiotics, nebulizers, blood transfusion. Patient is on room air, tolerating diet, stable for discharge to home with follow-up appointment with primary care physician, pulmonary for chronic bronchitis/pneumonia, will need to follow-up with gastroenterology for EGD and colon after discharge. PROBLEM: Anemia-no reported rectal bleeding Pneumonia Chronic bronchitis Prescription for p.o. antibiotics, Augmentin, albuterol inhaler 1 puff every 6 hours as needed for cough shortness of breath Follow-up with Dr. Torres pulmonary in 1 to 2 weeks for chronic bronchitis/pneumonia Follow-up with Dr. Weaver for outpatient EGD: Colonoscopy to evaluate for anemia. Continue home medicines as previously prescribed GOAL: Clear understanding of disease process INSTRUCTIONS: Physician Discharge Instructions: -Follow-up with PCP in 1 to 2 weeks -Please call Dr. Yancey at [phone] if any questions regarding hospital stay -Please call nursing station at [phone] if any nursing or medication questions -Return to the emergency room if symptoms worsen Diet: ADA, low sodium Activity: Fall precautions Vital Signs/Physical Exam: Temp Pulse Resp BP Pulse Ox 97.2 F 88 18 108/58 L 98 12/21/23 12:00 12/21/23 12:00 12/21/23 12:00 12/21/23 12:00 12/21/23 12:00 Laboratory Data at Discharge: WBC 6.90 thou/uL (4.3-10.9) 12/21/23 05:57 Hgb 7.8 g/dL (12.0-15.0) L 12/21/23 05:57 Hct 24.7 % (36.0-45.0) L 12/21/23 05:57 Plt Count 184 thou/uL (152-406) D 12/21/23 05:57 PT 14.8 SECONDS (9.5-12.5) H 12/16/23 12:49 INR 1.36 12/16/23 12:49 Sodium 140 mEq/L (136-145) 12/21/23 05:57 Potassium 3.7 mEq/L (3.5-5.1) 12/21/23 05:57 BUN 9 mg/dL (7-18) 12/21/23 05:57 Creatinine 0.52 mg/dL (0.55-1.02) L 12/21/23 05:57 Glucose 169 mg/dL (74-106) H 12/21/23 05:57 Phosphorus 2.9 mg/dL (2.5-4.9) 12/20/23 06:14 Magnesium 2.4 mg/dL (1.6-2.4) 12/21/23 05:57 Total Bilirubin 0.9 mg/dL (0.2-1.0) 12/19/23 06:00 AST 43 U/L (15-37) H 12/19/23 06:00 ALT 13 U/L (13-56) 12/19/23 06:00 Alkaline Phosphatase 107 U/L (45-117) D 12/19/23 06:00 Triglycerides 93 mg/dL (<150) 12/17/23 04:27 Cholesterol 75 mg/dL (<200) 12/17/23 04:27 HDL Cholesterol 15 mg/dL (40-60) L 12/17/23 04:27 Cholesterol/HDL Ratio 5.00 12/17/23 04:27 Home Medications: Albuterol Inhaler [Ventolin Inhaler*] 2 puff IH Q6H PRN 30 Days #1 inh 12/21/23 Amox/Clavulanate [Augmentin 875-125 Tab*] 875 mg PO BID 7 Days #14 tab 12/21/23 Ascorbic Acid [Vitamin C*] 500 mg PO BID 30 Days #60 mg 12/21/23 Benzonatate [Tessalon Perle*] 100 mg PO Q6H PRN 7 Days #20 cap 12/21/23 Cetirizine HCl [Zyrtec*] 10 mg PO DAILY PRN 30 Days #30 mg 12/21/23 Ferrous Sulfate [Ferrous Sulfate*] 325 mg PO BID 30 Days #60 tab 12/21/23 New Medications: Amox/Clavulanate [Augmentin 875-125 Tab*] 875 mg PO BID 7 Days #14 tab Ferrous Sulfate [Ferrous Sulfate*] 325 mg PO BID 30 Days #60 tab Benzonatate [Tessalon Perle*] 100 mg PO Q6H PRN 7 Days #20 cap PRN Reason: Cough Albuterol Inhaler [Ventolin Inhaler*] 2 puff IH Q6H PRN 30 Days #1 inh PRN Reason: Shortness Of Breath Ascorbic Acid [Vitamin C*] 500 mg PO BID 30 Days #60 mg Cetirizine HCl [Zyrtec*] 10 mg PO DAILY PRN 30 Days #30 mg PRN Reason: Allergies Physician Discharge Instructions: 53-year-old female patient presented with anemia, Was noted to have pneumonia, anemia. Patient was evaluated by legal recruiter, plan to discharge home on p.o. antibiotics, albuterol inhaler. Condition improved with IV antibiotics, nebulizers, blood transfusion. Patient is on room air, tolerating diet, stable for discharge to home with follow-up appointment with primary care physician, pulmonary for chronic bronchitis/pneumonia, will need to follow-up with gastroenterology for EGD and colon after discharge. PROBLEM: Anemia-no reported rectal bleeding Pneumonia Chronic bronchitis Prescription for p.o. antibiotics, Augmentin, albuterol inhaler 1 puff every 6 hours as needed for cough shortness of breath Follow-up with Dr. Torres pulmonary in 1 to 2 weeks for chronic bronchitis/pneumonia Follow-up with Dr. Weaver for outpatient EGD: Colonoscopy to evaluate for anemia. Continue home medicines as previously prescribed GOAL: Clear understanding of disease process INSTRUCTIONS: Physician Discharge Instructions: -Follow-up with PCP in 1 to 2 weeks -Please call Dr. Yancey at [phone] if any questions regarding hospital stay -Please call nursing station at [phone] if any nursing or medication questions -Return to the emergency room if symptoms worsen Diet: ADA, low sodium Activity: Fall precautions Followup: Eliot Cates MD [ACTIVE - CAN ADMIT] - NONE,NONE [Primary Care Provider] - Maximus Cavazos MD [ACTIVE - CAN ADMIT] - Time spent managing pt's care (in minutes): 55
[2023-12-21] MEDS ORDERED: AMOX/K CLAV 875 MG TAB PO SCH (21:00)
--- NOTE | 2023-12-22 16:17 | EKG ---
Test Date: 2023-12-19 Test Time: 15:32:50 Floor Mechanic: AQUILES MEASUREMENT RESULTS: Intervals: Rate: 86 PA: 158 QRSD: 86 QT: 388 QTc: 464 [place]: P: 39 PA: 158 QRS: -20 T: 31 INTERPRETIVE STATEMENTS: Normal sinus rhythm Low voltage QRS Borderline ECG Compared to ECG 12/16/2023 12:59:13 Low QRS voltage now present Left-axis deviation no longer present ST (T wave) deviation no longer present Prolonged QT interval no longer present Electronically Signed On 12-22-23 16:07:46 SCHOOL OPERATIONS MANAGER by Elijah Guillaume
--- NOTE | 2023-12-22 16:17 | EKG ---
Test Date: 2023-12-19 Test Time: 15:34:47 Director Government: AQUILES MEASUREMENT RESULTS: Intervals: Rate: 87 PA: 160 QRSD: 84 QT: 382 QTc: 459 [place]: P: 44 PA: 160 QRS: -24 T: 32 INTERPRETIVE STATEMENTS: Normal sinus rhythm Low voltage QRS Borderline ECG Compared to ECG 12/16/2023 12:59:13 Low QRS voltage now present Left-axis deviation no longer present ST (T wave) deviation no longer present Prolonged QT interval no longer present Electronically Signed On 12-22-23 16:07:45 INSURANCE SALES AGENT by Elijah Guillaume
== END 2023-12-21 18:54 | disposition home or self-care (01) | DRG 193 ==
LOC: ER 11:46 → ERHOLD 22:54 → 4TH 12-17 19:14
PROVIDERS: ADMIT Hospitalist; ATTEND Hospitalist
PROC: 30233N1 Transfusion of Nonautologous Red Blood Cells into Peripheral Vein, Percutaneous Approach (ICD-10-PCS; principal; 2023-12-16)
DX: J18.9 Pneumonia, unspecified organism (principal); J96.01 Acute respiratory failure with hypoxia; D61.818 Other pancytopenia; E87.1 Hypo-osmolality and hyponatremia; E87.6 Hypokalemia; D50.9 Iron deficiency anemia, unspecified; J03.00 Acute streptococcal tonsillitis, unspecified; E83.51 Hypocalcemia; Z68.36 Body mass index [BMI] 36.0-36.9, adult; E66.9 Obesity, unspecified; E03.9 Hypothyroidism, unspecified; R94.31 Abnormal electrocardiogram [ECG] [EKG]; Z11.52 Encounter for screening for COVID-19; Z90.49 Acquired absence of other specified parts of digestive tract; Z79.82 Long term (current) use of aspirin; Z90.710 Acquired absence of both cervix and uterus; Z79.899 Other long term (current) drug therapy
CPT/HCPCS: 36415; 71045; 71260; 74177; 80048; 80053; 80061; 80076; 82607; 82728; 83540; 83605; 83615; 83735; 83880; 84100; 84439; 84443; 84466; 84484; 85025; 85044; 85610; 86850; 86900; 86901; 86920; 87040; 87081; 87804; 87811; 93005; 94010; 94640; 99285; C9113; J0696; J1170; J1940; J2405; J2930; J7030; J7050; J7613; J7644; P9016; Q9967

== ENCOUNTER 2024-11-20 19:37 | Emergency (ER) | payer OTHER, SELFPAY ==
[2024-11-20] MEDS ORDERED: NA CHLORIDE 0.9% 1,000 ML ONE ×2 (20:16→22:17)
[2024-11-20] MEDS ORDERED: ONDANSETRON 4 MG/2 ML VIAL ONE (20:16)
[2024-11-20] MEDS ORDERED: MORPHINE 4 MG/ML SYR ONE (20:16)
[2024-11-20 20:30] LABS: Specific Gravity 1.019 (1.005-1.030); Sqamous Epithelial <5 /HPF (None Seen); Urine Bacteria None Seen /HPF (<20); Urine Bilirubin 2+ (Negative); Urine Blood Negative (Negative); Urine Clarity Extremely Turbid (Clear); Urine Color Dark-Orange (Yellow); Urine Crystals Unidentified Few /HPF (None Seen); Urine Culture Reflex Order NOT NEEDED; Urine Glucose NEGATIVE (Negative); Urine Ketones NEGATIVE (Negative); Urine Microscopic Reflex YN ORDER UMIC; Urine Mucus Slight /HPF (None Seen); Urine Nitrite NEGATIVE (Negative); Urine Protein TRACE (Negative); Urine RBC <5 /HPF (None Seen); Urine Urobilinogen 4+ (Over) (Normal); Urine WBC <5 /HPF (<5)
[2024-11-20 20:46] LABS: Absolute Eosinophils 0.1 K/uL (0-0.5); Absolute Lymphocytes (CBC) 1.1 K/uL (0.7-4.9); Absolute Monocytes 0.8 K/uL (0.1-1.3); Absolute Neutrophil 5.9 K/uL (1.8-8.0); Basophils % 0.5 % (0-1.3); Eosinophils % 0.7 % (0-4.4); Hematocrit 44.4 % (36.0-45.0); Hemoglobin 15.9 g/dL (12.0-15.0); Lymphocytes % 13.6 % (15.3-44.8); MCH 36.4 pg (27.0-35.0); MCHC 35.8 g/dL (32.0-36.0); MCV 101.8 fL (80-100); MPV 9.7 fL (7.6-11.3); Monocytes % 9.8 % (3.3-12.3); Neutrophils % 75.4 % (41.7-73.7); Nucleated Red Blood Cells % 0.1 % (0-0); Platelets 114 thou/uL (152-406); RBC Red Blood Cell Count 4.36 M/uL (3.86-4.86); Red Cell Distribution Width 15.3 % (12.1-15.2)
[2024-11-20 20:48] LABS: Albumin 3.2 g/dL (3.4-5.0); Albumin/Globulin Ratio 0.7 (1.1-1.8); Bilirubin Total 11.4 mg/dL (0.2-1.0); Globulin 4.5 g/dL (2.3-3.5); Protein, Total 7.7 g/dL (6.4-8.2)
[2024-11-20] MEDS ORDERED: POTASSIUM CL SA 10 MEQ TAB PO ONE (21:00)
[2024-11-20] MEDS ORDERED: PROMETHAZINE INJ 25 MG/ML AMP ONE (21:13)
--- NOTE | 2024-11-20 23:08 | EDPHYS ---
Physician Documentation [facility] Name: Vianca Casey Age: 54 yrs Sex: Female : 1970 Arrival Date: 11/20/2024 Time: 19:37 Bed 16 Private MD: ED Physician Miguelito Hawkins HPI: 11/20 20:19 This 54 yrs old Female presents to ER via Ambulatory with complaints of dr5 Decreased Appetite - x3days. 20:19 Onset: The symptoms/episode began/occurred 4 day(s) ago. 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 Pt denies fever, chest pain, shortness of breath, diarrhea.. 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 - Infectious Disease History:: Denies. - Social history:: Smoking status: Patient denies any tobacco usage or history of. ROS: 20:19 Constitutional: as per hpi dr5 Exam: 20:19 Constitutional: This is a well developed, well nourished patient who is awake, alert, dr5 and in no acute distress. Head/Face: Normocephalic, atraumatic. Eyes: Pupils equal round and reactive to light, extra-ocular motions intact. Lids and lashes normal. Conjunctiva and sclera are non-icteric and not injected. Cornea within normal limits. Periorbital areas with no swelling, redness, or edema. ENT: Nares patent. No nasal discharge, no septal abnormalities noted. Tympanic membranes are normal and external auditory canals are clear. Oropharynx with no redness, swelling, or masses, exudates, or evidence of obstruction, uvula midline. Mucous membranes moist. Chest/axilla: Normal chest wall appearance and motion. Nontender with no deformity. No lesions are appreciated. Cardiovascular: Regular rate and rhythm with a normal S1 and S2. Normal PMI, no JVD. No pulse deficits. Abdomen/GI: Soft, non-tender, non-distended Back: No spinal tenderness. No costovertebral tenderness. Full range of motion. Skin: Warm, dry with normal turgor. Normal color with no rashes, no lesions, and no evidence of cellulitis. MS/ Extremity: Pulses equal, no cyanosis. Neurovascular intact. Full, normal range of motion. Neuro: Awake and alert, GCS 15, oriented to person, place, time, and situation. Cranial nerves II-XII grossly intact. Motor strength 5/5 in all extremities. Sensory grossly intact. Cerebellar exam normal. Normal gait. Vital Signs: 19:54 BP 140 / 82; Pulse 93; Resp 16; Pulse Ox 100% on R/A; Weight 91.17 kg; Height 5 ft. 2 cm10 in. ; Pain 8/10; 20:00 BP 148 / 75; Pulse 87; Resp 14; Pulse Ox 100% ; me1 21:00 BP 128 / 79; Pulse 87; Resp 14; Pulse Ox 100% ; me1 22:00 BP 129 / 79; Pulse 77; Resp 16; Pulse Ox 97% ; me1 23:00 BP 123 / 76; Pulse 81; Resp 16; Pulse Ox 98% ; me1 19:54 Body Mass Index 36.76 (91.17 kg, 157.48 cm) cm10 19:54 Pain Scale: Adult cm10 MDM: 19:49 Medical Screening Exam initiated dr5 23:58 Differential diagnosis: viral Infection, bacterial infection, URI, Dehydration. Data dr5 reviewed: vital signs, nurses notes, lab test result(s). I considered the following discharge prescriptions or medication management in the emergency department Medications were administered in the Emergency Department. See MAR. Care significantly affected by the following chronic conditions: CVA, seizure, anemia. Care significantly affected by the following Social Determinants of Health: Poor access to healthcare and/or lack of insurance, Poor access to transportation, Problems related to employment. Counseling: I had a detailed discussion with the patient and/or guardian regarding the historical points, exam findings, and any diagnostic results supporting the discharge/admit diagnosis, lab results, radiology results, the need for outpatient follow up, for definitive care, a family practitioner, to return to the emergency department if symptoms worsen or persist or if there are any questions or concerns that arise at home. Medication response: morphine relieved the patient's pain. Symptoms have resolved, Phenergan relieved the patient's nausea, Zofran partially relieved the patient's nausea. Response to treatment: the patient's symptoms have resolved after treatment. ED course: Patient reports her pain and nausea have completely resolved. Patient reports she is feeling much better. Patient passed p.o. challenge with p.o. potassium. Recommended increasing hydration at home and following up with her regular doctor this week. Patient is agreeable to plan.. 11/20 20:05 Order name: CBC with Diff; Complete Time: 20:52 dr5 11/20 20:05 Order name: CMP; Complete Time: 20:51 dr5 11/20 20:05 Order name: Lipase; Complete Time: 20:51 dr5 11/20 20:05 Order name: Urinalysis w/ reflexes; Complete Time: 20:41 dr5 11/20 20:05 Order name: IV Saline Lock; Complete Time: 20:25 dr5 11/20 20:05 Order name: Labs collected and sent; Complete Time: 20:25 dr5 Administered Medications: 20:27 Drug: Ondansetron IVP 4 mg IVP once; over 2 minutes Route: IVP; Site: right antecubital;me1 20:48 Follow up: Response: No adverse reaction; Nausea is decreased me1 20:27 Drug: morphine IVP or IV 4 mg IVP once over 4 mins Route: IVP; Infused Over: 4 mins; me1 Site: right antecubital; 20:48 Follow up: Response: No adverse reaction; Pain is decreased me1 20:27 Drug: NS 0.9% IV 1000 ml IV at 1 bolus Per protocol; to be given as a bolus over 60 me1 minutes Route: IV; Rate: 1 bolus; Site: right antecubital; 22:25 Follow up: Response: No adverse reaction; IV Status: Completed infusion; IV Intake: me1 1000ml 21:10 Drug: Potassium Chloride PO 40 mEq PO once Route: PO; me1 21:14 Follow up: Response: No adverse reaction me1 21:15 Drug: Promethazine IVP 25 mg IVP once Route: IVP; Site: right antecubital; me1 22:20 Follow up: Response: No adverse reaction; Nausea is decreased me1 22:30 Drug: NS 0.9% IV 1000 ml IV at 1000 ml once; to be given as a bolus over 60 minutes me1 Route: IV; Rate: 1000 ml; Site: right antecubital; 23:31 Follow up: IV Status: Completed infusion; IV Intake: 1000ml rg5 Disposition Summary: 11/20/24 23:07 Discharge Ordered Notes: Location: Home dr5 Condition: Stable dr5 Diagnosis - Nausea with vomiting, unspecified dr5 Followup: dr5 - With: Emergency Department - When: As needed - Reason: Worsening of condition Followup: dr5 - With: Private Physician - When: 1 - 2 days - Reason: Recheck today's complaints, Continuance of care, Re-evaluation by your physician Discharge Instructions: - Discharge Summary Sheet dr5 - Dehydration, Adult dr5 - Nausea and Vomiting, Adult dr5 Forms: - Medication Reconciliation Form dr5 - Patient Portal Instructions dr5 - Leadership Thank You Letter dr5 Prescriptions: - Zofran 4 mg Oral Tablet - take 1 tablet ORAL route every 12 hours As needed; 20 tablet; Refills: 0, dr5 Product Selection Permitted - promethazine 25 mg Oral Tablet - take 1 tablet ORAL route every 6 hours As needed; 20 tablet; Refills: 0, dr5 Product Selection Permitted Signatures: Dispatcher [employer] Yelena Fierro, RN RN cm10 Blanca Sherwood RN RN me1 Jayesh Snyder, MOTION PICTURE FILM EXAMINER-C MOTION PICTURE FILM EXAMINER-Cdr5 Luis Cortes RN rg5
--- NOTE | 2024-11-20 23:08 | ER ---
Nurse's Notes [facility] Name: Vianca Casey Age: 54 yrs Sex: Female : 1970 Arrival Date: 11/20/2024 Time: 19:37 Bed 16 Private MD: Diagnosis: Nausea with vomiting, unspecified Presentation: 11/20 19:54 Chief complaint: Patient states: Decreased appetite, vomiting and generalized weakness cm10 onset 4 days ago. pt states that she went and saw her PCP for the vomiting and was given zofran. Pt also reports abdominal pain when vomiting. Coronavirus screen: Client denies travel out of the [place] in the last 14 days. Ebola Screen: Patient denies travel to an Ebola-affected area in the 21 days before illness onset. Initial Sepsis Screen: Does the patient meet any 2 criteria? No. Patient's initial sepsis screen is negative. Does the patient have a suspected source of infection? No. Patient's initial sepsis screen is negative. Risk Assessment: Do you want to hurt yourself or someone else? Patient reports no desire to harm self or others. Onset of symptoms was November 16, 2024. 19:54 Method Of Arrival: Ambulatory cm10 19:54 Acuity: MARY 3 cm10 Triage Assessment: 19:57 General: Appears in no apparent distress. uncomfortable, Behavior is calm, cooperative. cm10 Neuro: No deficits noted. Level of Consciousness is awake, alert, obeys commands, Oriented to person, place, time, situation, Appropriate for age. Respiratory: No deficits noted. Airway is patent Respiratory effort is even, unlabored, Respiratory pattern is regular, symmetrical. 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 - Infectious Disease History:: Denies. - Social history:: Smoking status: Patient denies any tobacco usage or history of. Screenin:59 [facility] ED Fall Risk Assessment (Adult) History of falling in the last 3 months, me1 including since admission No falls in past 3 months (0 pts) Confusion or Disorientation No (0 pts) Intoxicated or Sedated No (0 pts) Impaired Gait No (0 pts) Mobility Assist Device Used No (0 pt) Altered Elimination No (0 pt) Score/Fall Risk Level 0 - 2 = Low Risk Maintained a safe environment, Provided non-skid footwear, Hourly rounding (assess needs \T\ fall precautionary measures) done. Abuse screen: Denies threats or abuse. Nutritional screening: No deficits noted. Tuberculosis screening: No symptoms or risk factors identified. Assessment: 19:59 General: Appears in no apparent distress. well developed, well nourished, Behavior is me1 calm, cooperative, appropriate for age, Reports Decreased appetite, vomiting and generalized weakness onset 4 days ago. pt states that she went and saw her PCP for the vomiting and was given zofran. Pt also reports abdominal pain when vomiting. Pain: Complains of pain in abdomen Pain currently is 0 out of 10 on a pain scale. at worst was 8 out of 10 on a pain scale. Quality of pain is described as crampy, Pain began 2-3 days ago. Is episodic, Aggravated by vomiting. Neuro: Level of Consciousness is awake, alert, obeys commands, Oriented to person, place, time, situation, Appropriate for age. Cardiovascular: Patient's skin is warm and dry. Respiratory: Airway is patent Respiratory effort is even, unlabored, Respiratory pattern is regular, symmetrical. GI: Reports lower abdominal pain, upper abdominal pain, nausea, vomiting, since 4 days ago. GI: Reports anorexia. : No signs and/or symptoms were reported regarding the genitourinary system. EENT: No signs and/or symptoms were reported regarding the EENT system. Derm: Skin is intact, is healthy with good turgor, Skin is pink, warm \T\ dry. Musculoskeletal: No signs and/or symptoms reported regarding the musculoskeletal system. Vital Signs: 19:54 BP 140 / 82; Pulse 93; Resp 16; Pulse Ox 100% on R/A; Weight 91.17 kg; Height 5 ft. 2 cm10 in. ; Pain 8/10; 20:00 BP 148 / 75; Pulse 87; Resp 14; Pulse Ox 100% ; me1 21:00 BP 128 / 79; Pulse 87; Resp 14; Pulse Ox 100% ; me1 22:00 BP 129 / 79; Pulse 77; Resp 16; Pulse Ox 97% ; me1 23:00 BP 123 / 76; Pulse 81; Resp 16; Pulse Ox 98% ; me1 19:54 Body Mass Index 36.76 (91.17 kg, 157.48 cm) cm10 19:54 Pain Scale: Adult cm10 ED Course: 19:44 Patient arrived in ED. ra3 19:48 Jayesh Snyder FNP-C [facility]. dr5 19:48 Miguelito Hawkins MD is Attending Physician. dr5 19:56 Triage completed. cm10 19:57 Arm band placed on right wrist. Patient placed in an exam room, on a stretcher. cm10 19:58 Blanca Sherwood, DAVE is Primary Nurse. me1 19:59 Patient has correct armband on for positive identification. Bed in low position. Call me1 light in reach. Side rails up X2. Provided Education on: POC. Verbalized understanding.. Client placed on continuous cardiac and pulse oximetry monitoring. NIBP monitoring applied. Pulse ox on. NIBP on. 19:59 No provider procedures requiring assistance completed. me1 20:19 Urinalysis w/ reflexes Sent. me1 20:19 Urine collected: clean catch specimen, cloudy, tea colored. me1 20:24 Inserted saline lock: 22 gauge in right antecubital area, using aseptic technique. oe Blood collected. Flushed with 10 mL NS. 20:25 CBC with Diff Sent. oe 20:25 CMP Sent. oe 20:25 Lipase Sent. oe 23:32 IV discontinued, bleeding controlled, No redness/swelling at site. Pressure dressing rg5 applied. Administered Medications: 20:27 Drug: Ondansetron IVP 4 mg IVP once; over 2 minutes Route: IVP; Site: right antecubital;me1 20:48 Follow up: Response: No adverse reaction; Nausea is decreased me1 20:27 Drug: morphine IVP or IV 4 mg IVP once over 4 mins Route: IVP; Infused Over: 4 mins; me1 Site: right antecubital; 20:48 Follow up: Response: No adverse reaction; Pain is decreased me1 20:27 Drug: NS 0.9% IV 1000 ml IV at 1 bolus Per protocol; to be given as a bolus over 60 me1 minutes Route: IV; Rate: 1 bolus; Site: right antecubital; 22:25 Follow up: Response: No adverse reaction; IV Status: Completed infusion; IV Intake: me1 1000ml 21:10 Drug: Potassium Chloride PO 40 mEq PO once Route: PO; me1 21:14 Follow up: Response: No adverse reaction me1 21:15 Drug: Promethazine IVP 25 mg IVP once Route: IVP; Site: right antecubital; me1 22:20 Follow up: Response: No adverse reaction; Nausea is decreased me1 22:30 Drug: NS 0.9% IV 1000 ml IV at 1000 ml once; to be given as a bolus over 60 minutes me1 Route: IV; Rate: 1000 ml; Site: right antecubital; 23:31 Follow up: IV Status: Completed infusion; IV Intake: 1000ml rg5 Medication: 19:59 VIS not applicable for this client. me1 Intake: 22:25 IV: 1000ml; Total: 1000ml. me1 23:31 IV: 1000ml; Total: 2000ml. rg5 Outcome: 23:07 Discharge ordered by . dr5 23:32 Discharged to home ambulatory, rg5 23:32 Condition: stable 23:32 Discharge instructions given to patient, Instructed on discharge instructions, follow up and referral plans. Demonstrated understanding of instructions, follow-up care, medications, Prescriptions given X 2, 23:32 Patient left the ED. rg5 Signatures: Omi Devine Clarissa, RN RN cm10 Blanca Sherwood RN RN me1 Magda Álvarez ra3 Luis Cortes RN RN rg5 Jayesh Snyder, CHERRY PITTER-C CHERRY PITTER-Cdr5 Corrections: (The following items were deleted from the chart) 59 19:54 Chief complaint: Patient states: Decreased appetite, vomiting and generalized me1 weakness onset 4 days ago. pt states that she went and saw her PCP for the vomiting and was given zofran. Pt also reports abdominal pain when vomiting. cm10
[2024-11-21 00:15] VITALS: BP 123/76; O2SAT 98
== END 2024-11-20 23:32 | disposition home or self-care (01) ==
LOC: ER 19:37
DX: R11.2 Nausea with vomiting, unspecified (principal); R56.9 Unspecified convulsions; D64.9 Anemia, unspecified; Z86.73 Personal history of transient ischemic attack (TIA), and cerebral infarction without residual deficits
CPT/HCPCS: 96361; 85025; 81001; 36415; 83690; 80053; 96375; 96374; 99284; J2550; J2405; J7030 ×2

== ENCOUNTER 2024-12-08 10:09 | Emergency (ER) | payer OTHER ==
[2024-12-08] MEDS ORDERED: MORPHINE 4 MG/ML SYR ONE ×2 (10:38→13:57)
[2024-12-08] MEDS ORDERED: CEFTRIAXONE 1000 MG/VIAL ONE (10:38)
[2024-12-08] MEDS ORDERED: ONDANSETRON 4 MG/2 ML VIAL ONE (10:38)
[2024-12-08] MEDS ORDERED: NA CHLORIDE 0.9% 50 ML ONE (10:39)
[2024-12-08] MEDS ORDERED: NA CHLORIDE 0.9% 1,000 ML ONE ×3 (10:39→13:37)
[2024-12-08 11:10] LABS: Absolute Basophils 0.1 K/uL (0-0.5); Absolute Eosinophils 0.1 K/uL (0-0.5); Absolute Lymphocytes (CBC) 0.8 K/uL (0.7-4.9); Absolute Monocytes 0.9 K/uL (0.1-1.3); Absolute Neutrophil 10.2 K/uL (1.8-8.0); Basophils % 0.8 % (0-1.3); Hematocrit 37.8 % (36.0-45.0); Hemoglobin 13.3 g/dL (12.0-15.0); Lymphocytes % 6.8 % (15.3-44.8); MCH 37.2 pg (27.0-35.0); MCHC 35.1 g/dL (32.0-36.0); MCV 105.8 fL (80-100); MPV 9.2 fL (7.6-11.3); Monocytes % 7.4 % (3.3-12.3); Nucleated Red Blood Cells % 0.1 % (0-0); Platelets 226 thou/uL (152-406); RBC Red Blood Cell Count 3.57 M/uL (3.86-4.86); Red Cell Distribution Width 18.6 % (12.1-15.2)
[2024-12-08 11:21] LABS: PT Prothrombin Time 21.9 SECONDS (9.4-12.5); PTT, Activated Partial Thromb 43.6 SECONDS (24.3-36.9); Protime INR 2.1
[2024-12-08 11:27] LABS: Specific Gravity 1.026 (1.005-1.030); Sqamous Epithelial 20-50 /HPF (None Seen); Urine Bacteria 20-50 /HPF (<20); Urine Bilirubin 4+ (Over) (Negative); Urine Blood Trace (Negative); Urine Clarity Extremely Turbid (Clear); Urine Color Dark-Orange (Yellow); Urine Culture Reflex Order NOT NEEDED; Urine Glucose NEGATIVE (Negative); Urine Ketones NEGATIVE (Negative); Urine Micro Reflex YN NO BILL MICROSCOPIC; Urine Mucus 3+ /HPF (None Seen); Urine Nitrite NEGATIVE (Negative); Urine Protein TRACE (Negative); Urine RBC None Seen /HPF (None Seen); Urine Urobilinogen 4+ (Over) (Normal); Urine WBC None Seen /HPF (<5)
[2024-12-08 11:36] LABS: Albumin 2.4 g/dL (3.4-5.0); Albumin/Globulin Ratio 0.5 (1.1-1.8); Anion Gap 10.9 mEq/L (5.0-15.0); Bilirubin Total 21.6 mg/dL (0.2-1.0); Globulin 4.9 g/dL (2.3-3.5); Potassium 2.9 mEq/L (3.5-5.1); Protein, Total 7.3 g/dL (6.4-8.2)
--- NOTE | 2024-12-08 11:40 | RAD REPORT ---
Liver Only: 12/08/2024 10:29 AM CLINICAL HISTORY: ruq pain w/ jaundice STUDY: Limited right upper quadrant ultrasound of abdomen. COMPARISON: 12/19/2023 CT FINDINGS: Liver: Nodular liver contour with coarsened echotexture. No focal mass. Bile ducts: No intrahepatic or extrahepatic biliary ductal dilatation. Common bile duct measures 6 mm. Cholecystomy. Mild ascites. IMPRESSION: Cirrhotic liver morphology. No focal mass. Mild ascites. No biliary duct dilatation.
[2024-12-08 11:41] LABS: Atypical Lymphocytes 1 %; Blood Morphology Comment NOT SEEN (NOT SEEN); Differential Total Cells Count 100; Eosinophils 2 % (0-3); Lymphocytes 11 % (15-42); Monocytes 4 % (0-10); Platelet Estimate ADEQ; Segmented Neutrophils 82 % (40-80); Toxic Granulation NOTED
[2024-12-08 12:29] LABS: Hepatitis B Core IgM Nonreactive (Nonreactive); Hepatitis C Virus Ab Nonreactive (Nonreactive)
--- NOTE | 2024-12-08 12:30 | RAD REPORT ---
EXAMINATION: CT ABDOMEN AND PELVIS WITH CONTRAST CLINICAL INDICATION: Female, 54 years old.ruq pain w/ jaundice TECHNIQUE: CT abdomen and pelvis was performed, after the administration of IV contrast, as per [facility] protocol. Axial, sagittal and coronal reconstructions were obtained. One or more of the following dose reduction techniques were used: Automated exposure control, adjustment of the mA and/o r kV according to patient size, and/or iterative reconstruction. Unless otherwise specified, incidental findings do not require dedicated imaging follow-up. [id number]. COMPARISON: 05/31/2022 FINDINGS: LOWER CHEST: No acute process identified.No significant pericardial effusion. UPPER GI: No significant abnormality. LIVER: Extensive tumor present throughout the right and left hepatic lobe with more than two thirds o f the liver replaced with tumor. GALLBLADDER/BILE DUCTS: Cholecystectomy. Mild extra-hepatic biliary ductal dilatation is likely relat ed to the post-cholecystectomy state. Consider correlating with LFT's.? PANCREAS: No mass, ductal dilation, or ester-pancreatic fluid. SPLEEN: Enlarged spleen measuring 15.7 cm. ADRENALS: No adrenal masses. KIDNEYS AND URETERS: No hydronephrosis.No suspicious renal mass. ABDOMINAL AORTA AND OTHER VESSELS: Normal caliber aorta and IVC. PERITONEUM: Moderate ascites. LYMPH NODES: No pathologic lymphadenopathy. ABDOMINAL WALL: Unremarkable SMALL BOWEL/COLON: Diffuse colonic and to lesser extent small bowel wall thickening which may be due to portal hypertension. URINARY BLADDER: Underdistended but grossly unremarkable. REPRODUCTIVE ORGANS: Uterus surgically absent. No adnexal abnormality. MUSCULOSKELETAL: No acute or suspicious osseous abnormality. ADDITIONAL FINDINGS: None. IMPRESSION: Interval development of widespread tumor throughout both the right and left hepatic lobe which may re flect aggressive multifocal HCC or metastatic disease.Biopsy may be needed. No other evidence of metastatic disease.
[2024-12-08 12:45] LABS: Hepatitis B surface AG Interp. ND (Nonreactive)
--- NOTE | 2024-12-08 12:48 | EDPHYS ---
Physician Documentation [facility] Name: Vianca Casey Age: 54 yrs Sex: Female : 1970 Arrival Date: 12/08/2024 Time: 10:09 Bed 13 Private MD: ED Physician Miguelito Hawkins HPI: 12/08 11:07 This 54 yrs old Female presents to ER via Ambulatory with complaints of ec2 Abdominal Pain. 11:07 Patient arrives today for evaluation of abdominal pain. Patient plaint of upper ec2 abdominal pain has progressively been worsening. Patient reports that she has a history of seizures. Reports no new medications. Patient reports some nausea as well. Denies any previous significant alcohol use history.. Historical: - Allergies: 10:24 NKDA; hb - PMHx: 10:24 Anemia; Cerebrovascular accident; Seizure; hb - PSHx: 10:24 Appendectomy; Cholecystectomy; hysterectomy; knee surgery; hb - Immunization history:: Adult Immunizations up to date. - Infectious Disease History:: Denies. - Social history:: Smoking status: Patient denies any tobacco usage or history of. ROS: 11:07 Constitutional: as per hpi ec2 Exam: 11:07 Constitutional: GEN: NAD Head: atraumatic Eyes: EOMI, scleral icterus noted. Ears: ec2 External ears are normal. CV: regular rate LUNGS: no respiratory distress ABD: non-distended, soft, tender in epigastrium, not guarding, not rigid. SKIN: Jaundice noted MSK: no evidence of trauma Vital Signs: 10:22 BP 132 / 65; Pulse 111; Resp 18; Temp 98.4(O); Pulse Ox 97% on R/A; Weight 91.63 kg; hb Height 5 ft. 1 in. ; Pain 9/10; 11:43 BP 116 / 83; Pulse 96; Resp 18; Pulse Ox 93% on R/A; ph 13:30 BP 124 / 79; Pulse 97; Resp 18; Pulse Ox 100% on R/A; ph 14:40 BP 132 / 81; Pulse 97; Resp 18; Temp 97.9; Pulse Ox 98% on R/A; ph 10:22 Body Mass Index 38.17 (91.63 kg, 154.94 cm) hb 10:22 Pain Scale: Adult hb MDM: 10:19 Medical Screening Exam initiated ec2 11:08 Data reviewed: vital signs, nurses notes. ED course: Patient arrives today for ec2 evaluation of upper abdominal pain. Examination yields upper abdominal TTP along with jaundice and scleral icterus. Will obtain lab work, ultrasonography as well as CT imaging. Differential diagnoses include processes such as hepatic mass, hemolytic process, obstruction. 11:42 ED course: CBC with leukocytosis. Metabolic profile shows hyponatremia, hypokalemia ec2 with potassium of 2.9. LFTs with pertinent findings for elevated total bilirubin of 21.6. Urine shows urobilinogen. INR elevated at 2.1, lactic acid with slight activation. Ammonia level within normal ranges. Ultrasound shows significant cirrhotic changes along with mild ascites.. 11:57 ED course: Patient with slight lactic acidosis, will give small fluid boluses given the ec2 patient's volume overload status with the ascites noted.. 12:23 ED course: Possible concurrent peritonitis. Sepsis reassessment complete.. ec2 13:28 ED course: I discussed case with hepatology at [facility] as well as 2 hospitalist who agreed except the patient for transfer.. 0208 10:29 Order name: CBC with Diff; Complete Time: 11:55 ec2 12/08 10:29 Order name: CMP; Complete Time: 11:41 ec2 12/08 10:29 Order name: Lipase; Complete Time: 11:41 ec2 12/08 10:29 Order name: UAM; Complete Time: 11:41 ec2 12/08 10:29 Order name: Hepatitis Panel; Complete Time: 12:46 ec2 12/08 10:29 Order name: PT-INR; Complete Time: 11:41 ec2 12/08 10:29 Order name: Blood Culture Adult (2) ec2 12/08 10:29 Order name: Lactate w/ 2H reflex if indic.; Complete Time: 11:41 ec2 12/08 10:29 Order name: Ptt, Activated; Complete Time: 11:41 ec2 12/08 10:29 Order name: AMMONIA; Complete Time: 11:41 ec2 12/08 10:29 Order name: LDH; Complete Time: 11:41 ec2 12/08 11:41 Order name: Ghost Lactate-NO COLLECT Timer; Complete Time: 14:31 EDMS 12/08 11:41 Order name: Manual Differential; Complete Time: 11:55 EDMS 12/08 12:46 Order name: Miscellaneous Test Lab; Complete Time: 12:47 EDMS 12/08 14:24 Order name: Lactate Sepsis 2 HR Follow-up; Complete Time: 14:31 EDMS 12/08 10:29 Order name: CT Abd/Pelvis - IV Contrast Only; Complete Time: 12:40 ec2 12/08 11:00 Order name: Liver Only; Complete Time: 11:41 EDMS 12/08 10:29 Order name: IV Saline Lock; Complete Time: 11:05 ec2 12/08 10:29 Order name: Labs collected and sent; Complete Time: 11:05 ec2 Administered Medications: 11:05 Drug: Ondansetron IVP 4 mg IVP once; over 2 minutes Route: IVP; Site: right antecubital;ph 11:30 Follow up: Response: No adverse reaction ph 11:05 Drug: morphine IVP or IV 4 mg IVP once over 4 mins Route: IVP; Infused Over: 4 mins; ph Site: right antecubital; 11:35 Follow up: Response: No adverse reaction; Pain is decreased; RASS: Alert and Calm (0) ph 11:05 Drug: NS 0.9% IV 1000 ml IV at 1 bolus Per protocol; to be given as a bolus over 60 ph minutes Route: IV; Rate: 1 bolus; Site: right antecubital; 12:05 Follow up: Response: No adverse reaction; IV Status: Completed infusion; IV Intake: ph 1000ml 11:05 Drug: Rocephin IV 1 grams IV at calculated rate once; Given slow IV push per pharmacy ph instructions Route: IV; Rate: calculated rate; Site: right antecubital; 11:35 Follow up: Response: No adverse reaction; IV Status: Completed infusion ph 12:16 Drug: NS 0.9% IV 1000 ml IV at 1000 ml once; to be given as a bolus over 60 minutes ph Route: IV; Rate: 1000 ml; Site: right antecubital; 13:30 Follow up: Response: No adverse reaction; IV Status: Completed infusion; IV Intake: ph 1000ml 14:15 Drug: Potassium Chloride PO 40 mEq PO once Route: PO; ph 14:42 Follow up: Response: No adverse reaction ph 14:15 Drug: Potassium Chloride IV 20 mEq IV at calculated rate once; administer over 1-2 ph hours Route: IV; Rate: calculated rate; Site: right antecubital; 14:41 Follow up: Response: No adverse reaction; IV Status: Infusion continued upon transfer ph 14:16 Drug: morphine IVP or IV 4 mg IVP once over 4 mins Route: IVP; Infused Over: 4 mins; ph Site: right antecubital; 14:41 Follow up: Response: No adverse reaction; Pain is decreased ph Disposition Summary: 12/08/24 12:47 Transfer Ordered Notes: Transfer Location: Other Acute Care Facility ec2 Reason: Higher level of care ec2 Condition: Stable ec2 Problem: new ec2 Symptoms: are unchanged ec2 Accepting Physician: transferring doc(12/08/24 15:10) ph Diagnosis - Hepatocellular Carcinoma (liver cancer) ec2 - Unspecified jaundice ec2 - Hypo-osmolality and hyponatremia ec2 - Hypokalemia ec2 - Spontaneous bacterial peritonitis ec2 - Sepsis, unspecified organism ec2 Forms: - Medication Reconciliation Form ec2 - SBAR form ec2 Critical care time excluding procedures: 12:48 Critical care time: Bedside Care: 30 minutes, Consultation: 5 minutes. Total time: 35 ec2 minutes Signatures: Dispatcher [employer] Opal Barrios RN RN ph Baxter, Heather, RN RN Paty Giron PA-C PA-C sb4 Miguelito Hawkins MD MD ec2 Corrections: (The following items were deleted from the chart) 10:30 10:30 CBC+H.LAB.BRZ ordered. EDMS EDMS 10:30 10:30 COMPREHENSIVE METABOLIC PANEL+C.LAB.BRZ ordered. EDMS EDMS 10:30 10:30 LIPASE+C.LAB.BRZ ordered. EDMS EDMS 10:30 10:30 Urinalysis W/Microscopic+U.LAB.BRZ ordered. EDMS EDMS 10:30 10:30 Acute Hepatitis Panel+SC.LAB.BRZ ordered. EDMS EDMS 10:30 10:30 PROTIME (+INR)+COAG.LAB.BRZ ordered. EDMS EDMS 10:30 10:30 BLOOD CULTURE*+BA.LAB.BRZ ordered. EDMS EDMS 10:30 10:30 LACTATE+C.LAB.BRZ ordered. EDMS EDMS 10:30 10:30 PTT, ACTIVATED+COAG.LAB.BRZ ordered. EDMS EDMS 10:30 10:30 AMMONIA+C.LAB.BRZ ordered. EDMS EDMS 10:30 10:30 LACTIC DEHYDROGENASE+C.LAB.BRZ ordered. EDMS EDMS 11:00 10:30 Abdomen Limited+US.RAD.BRZ ordered. EDMS EDMS 12:48 12:47 transferring doc ec2 ec2 15:10 12:48 transferring doc ec2 ph
--- NOTE | 2024-12-08 12:48 | ER ---
Nurse's Notes [facility] Name: Vianca Casey Age: 54 yrs Sex: Female : 1970 Arrival Date: 12/08/2024 Time: 10:09 Bed 13 Private MD: Diagnosis: Hepatocellular Carcinoma (liver cancer);Unspecified jaundice;Hypo-osmolality and hyponatremia;Hypokalemia;Spontaneous bacterial peritonitis;Sepsis, unspecified organism Presentation: 12/08 10:22 Chief complaint: Upper abdominal pain, nausea, and constipation x 4 days. Coronavirus hb screen: At this time, the client does not indicate any symptoms associated with coronavirus-19. Ebola Screen: No symptoms or risks identified at this time. Initial Sepsis Screen: Does the patient meet any 2 criteria? No. Patient's initial sepsis screen is negative. Does the patient have a suspected source of infection? No. Patient's initial sepsis screen is negative. Risk Assessment: Do you want to hurt yourself or someone else? Patient reports no desire to harm self or others. Onset of symptoms was December 04, 2024. 10:22 Method Of Arrival: Ambulatory hb 10:22 Acuity: MARY 3 hb Historical: - Allergies: 10:24 NKDA; hb - PMHx: 10:24 Anemia; Cerebrovascular accident; Seizure; hb - PSHx: 10:24 Appendectomy; Cholecystectomy; hysterectomy; knee surgery; hb - Immunization history:: Adult Immunizations up to date. - Infectious Disease History:: Denies. - Social history:: Smoking status: Patient denies any tobacco usage or history of. Screenin:27 [facility] ED Fall Risk Assessment (Adult) History of falling in the last 3 months, ph including since admission No falls in past 3 months (0 pts) Confusion or Disorientation No (0 pts) Intoxicated or Sedated No (0 pts) Impaired Gait No (0 pts) Mobility Assist Device Used No (0 pt) Altered Elimination No (0 pt) Score/Fall Risk Level 0 - 2 = Low Risk Oriented to surroundings, Maintained a safe environment, Hourly rounding (assess needs \T\ fall precautionary measures) done. Abuse screen: Denies threats or abuse. Denies injuries from another. Nutritional screening: No deficits noted. Tuberculosis screening: No symptoms or risk factors identified. Assessment: 10:26 General: Appears in no apparent distress. uncomfortable, Behavior is calm, cooperative. ph Pain: Complains of pain in abdomen. Neuro: Level of Consciousness is awake, alert, obeys commands, Oriented to person, place, time, situation. Cardiovascular: Capillary refill < 3 seconds in bilateral fingers Patient's skin is warm and dry. Respiratory: Airway is patent Respiratory effort is even, unlabored, Respiratory pattern is regular, symmetrical. GI: Abdomen is round Bowel sounds present X 4 quads. Abd is soft X 4 quads Abdomen is tender to palpation in right upper quadrant, left upper quadrant and right lower quadrant Reports lower abdominal pain, upper abdominal pain, constipation, nausea. EENT: Sclera/Cornea jaundiced. Derm: Skin is jaundiced. Musculoskeletal: Circulation, motion, and sensation intact. Range of motion: intact in all extremities. 11:44 Reassessment: Patient appears in no apparent distress at this time. Patient and/or ph family updated on plan of care and expected duration. Pain level reassessed. Patient is alert, oriented x 3, equal unlabored respirations, skin warm/dry/pink. 14:20 Reassessment: Patient appears in no apparent distress at this time. Patient and/or ph family updated on plan of care and expected duration. Pain level reassessed. Patient is alert, oriented x 3, equal unlabored respirations, skin warm/dry/pink. Report called to DAVE Mcdaniels at [facility], awaiting EMS for trasnport. 15:09 Reassessment: Patient appears in no apparent distress at this time. Patient and/or ph family updated on plan of care and expected duration. Pain level reassessed. Patient is alert, oriented x 3, equal unlabored respirations, skin warm/dry/pink. [facility] at bedside for transport. Vital Signs: 10:22 BP 132 / 65; Pulse 111; Resp 18; Temp 98.4(O); Pulse Ox 97% on R/A; Weight 91.63 kg; hb Height 5 ft. 1 in. ; Pain 9/10; 11:43 BP 116 / 83; Pulse 96; Resp 18; Pulse Ox 93% on R/A; ph 13:30 BP 124 / 79; Pulse 97; Resp 18; Pulse Ox 100% on R/A; ph 14:40 BP 132 / 81; Pulse 97; Resp 18; Temp 97.9; Pulse Ox 98% on R/A; ph 10:22 Body Mass Index 38.17 (91.63 kg, 154.94 cm) hb 10:22 Pain Scale: Adult hb ED Course: 10:11 Patient arrived in ED. mr 10:12 Miguelito Hawkins MD is Attending Physician. ec2 10:21 Opal eDe, RN is Primary Nurse. ph 10:24 Triage completed. hb 10:24 Arm band placed on. hb 10:28 Patient has correct armband on for positive identification. Bed in low position. Call ph light in reach. Side rails up X 1. Provided Education on: Estimated time for test results and use of call light. Client placed on continuous cardiac and pulse oximetry monitoring. NIBP monitoring applied. quality assurance monitor body on. 11:05 LDH Sent. ph 11:05 AMMONIA Sent. ph 11:05 Ptt, Activated Sent. ph 11:05 Lactate w/ 2H reflex if indic. Sent. ph 11:05 Blood Culture Adult (2) Sent. ph 11:05 PT-INR Sent. ph 11:05 Hepatitis Panel Sent. ph 11:05 UAM Sent. ph 11:37 Liver Only In Process Unspecified. EDMS 12:09 CT Abd/Pelvis - IV Contrast Only In Process Unspecified. EDMS 12:54 Transfer initiated with Saurav Tucker at the [facility]. eb 14:40 No provider procedures requiring assistance completed. Patient transferred, IV remains ph in place. Administered Medications: 11:05 Drug: Ondansetron IVP 4 mg IVP once; over 2 minutes Route: IVP; Site: right antecubital;ph 11:30 Follow up: Response: No adverse reaction ph 11:05 Drug: morphine IVP or IV 4 mg IVP once over 4 mins Route: IVP; Infused Over: 4 mins; ph Site: right antecubital; 11:35 Follow up: Response: No adverse reaction; Pain is decreased; RASS: Alert and Calm (0) ph 11:05 Drug: NS 0.9% IV 1000 ml IV at 1 bolus Per protocol; to be given as a bolus over 60 ph minutes Route: IV; Rate: 1 bolus; Site: right antecubital; 12:05 Follow up: Response: No adverse reaction; IV Status: Completed infusion; IV Intake: ph 1000ml 11:05 Drug: Rocephin IV 1 grams IV at calculated rate once; Given slow IV push per pharmacy ph instructions Route: IV; Rate: calculated rate; Site: right antecubital; 11:35 Follow up: Response: No adverse reaction; IV Status: Completed infusion ph 12:16 Drug: NS 0.9% IV 1000 ml IV at 1000 ml once; to be given as a bolus over 60 minutes ph Route: IV; Rate: 1000 ml; Site: right antecubital; 13:30 Follow up: Response: No adverse reaction; IV Status: Completed infusion; IV Intake: ph 1000ml 14:15 Drug: Potassium Chloride PO 40 mEq PO once Route: PO; ph 14:42 Follow up: Response: No adverse reaction ph 14:15 Drug: Potassium Chloride IV 20 mEq IV at calculated rate once; administer over 1-2 ph hours Route: IV; Rate: calculated rate; Site: right antecubital; 14:41 Follow up: Response: No adverse reaction; IV Status: Infusion continued upon transfer ph 14:16 Drug: morphine IVP or IV 4 mg IVP once over 4 mins Route: IVP; Infused Over: 4 mins; ph Site: right antecubital; 14:41 Follow up: Response: No adverse reaction; Pain is decreased ph Medication: 10:28 VIS not applicable for this client. ph Intake: 12:05 IV: 1000ml; Total: 1000ml. ph 13:30 IV: 1000ml; Total: 2000ml. ph Outcome: 12:47 ER care complete, transfer ordered by . ec2 15:10 Transferred by [facility]. to [facility], Transfer form ph completed. X-rays sent w/ patient. 15:10 Condition: stable 15:10 Instructed on the need for transfer, 15:10 Patient left the ED. ph Signatures: Dispatcher [employer] Sharonda Jeffery, Opal Jaquez RN RN Ines Herrera RN RN hb Botello, Elizabeth eb Corral, Edwin, MD MD ec2
[2024-12-08] MEDS ORDERED: POTASSIUM 25 MEQ EFFERV TAB ONE (13:37)
[2024-12-08] MEDS ORDERED: KCL 20 MEQ/100 mL IVPB 100 ML IV ONE (13:38)
[2024-12-08 15:18] VITALS: BP 132/81; TEMP 97.9; O2SAT 98
== END 2024-12-08 15:10 ==
LOC: ER 10:09
DX: C22.0 Liver cell carcinoma (principal); A41.9 Sepsis, unspecified organism; K65.2 Spontaneous bacterial peritonitis; R17 Unspecified jaundice; E87.1 Hypo-osmolality and hyponatremia; E87.6 Hypokalemia
CPT/HCPCS: 96365; 96367; 96361; 87040 ×2; 85025; 81001; 36415; 82140; 83615; 85610; 83605 ×2; 85730; 83690; 80053; 80074; 74177; 76705; 96375; 99285; Q9967; J3480; J2405; J7030 ×3; J0696

== ENCOUNTER 2024-12-16 12:02 | Emergency (ER) | payer OTHER ==
[2024-12-16 14:34] LABS: Absolute Eosinophils 0.1 K/uL (0-0.5); Absolute Lymphocytes (CBC) 0.6 K/uL (0.7-4.9); Absolute Monocytes 0.8 K/uL (0.1-1.3); Absolute Neutrophil 7.2 K/uL (1.8-8.0); Basophils % 0.2 % (0-1.3); Eosinophils % 0.8 % (0-4.4); Hematocrit 38.4 % (36.0-45.0); Hemoglobin 13.4 g/dL (12.0-15.0); Lymphocytes % 6.8 % (15.3-44.8); MCH 37.7 pg (27.0-35.0); MCHC 34.8 g/dL (32.0-36.0); MCV 108.4 fL (80-100); MPV 7.5 fL (7.6-11.3); Monocytes % 9.7 % (3.3-12.3); Neutrophils % 82.5 % (41.7-73.7); Platelets 179 thou/uL (152-406); RBC Red Blood Cell Count 3.54 M/uL (3.86-4.86); Red Cell Distribution Width 18.9 % (12.1-15.2)
[2024-12-16 14:35] LABS: Blood Morphology Comment NOTED (NOT SEEN); Platelet Estimate ADEQ; White Blood Cell Scan OK (OK)
[2024-12-16 14:36] LABS: Macrocytosis 1+
[2024-12-16] MEDS ORDERED: ONDANSETRON 4 MG/2 ML VIAL ONE (14:38)
[2024-12-16] MEDS ORDERED: MORPHINE 4 MG/ML SYR ONE (14:38)
[2024-12-16 14:54] LABS: Albumin 2.3 g/dL (3.4-5.0); Albumin/Globulin Ratio 0.5 (1.1-1.8); Anion Gap 9.9 mEq/L (5.0-15.0); Bilirubin Total 22.4 mg/dL (0.2-1.0); Globulin 4.9 g/dL (2.3-3.5); Potassium 3.9 mEq/L (3.5-5.1); Protein, Total 7.2 g/dL (6.4-8.2)
--- NOTE | 2024-12-16 15:10 | EDPHYS ---
Physician Documentation [facility] Name: Vianca Casey Age: 54 yrs Sex: Female : 1970 Arrival Date: 12/16/2024 Time: 12:02 Bed 6 Private MD: ED Physician Miguelito Hawkins HPI: 12/16 15:04 This 54 yrs old Female presents to ER via Ambulatory with complaints of ec2 Stomach pain. 15:04 Patient arrives today for evaluation of abdominal pain. Patient with recent diagnosis ec2 of hepatocellular carcinoma, reports that she has been having pain since she was seen last, was transferred to [facility] and ultimately told that she needs a follow-up and discuss liver transplantation.. 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 - Infectious Disease History:: Denies. - Social history:: Smoking status: Patient denies any tobacco usage or history of. ROS: 15:05 Constitutional: as per hpi ec2 Exam: 15:05 Constitutional: GEN: NAD Head: atraumatic Eyes: EOMI Ears: External ears are ec2 normal. CV: regular rate LUNGS: no respiratory distress ABD: non-distended SKIN: no evidence of rashes MSK: no evidence of trauma Vital Signs: 13:16 BP 119 / 81; Pulse 99; Resp 20; Temp 98.1; Pulse Ox 97% ; Weight 90.72 kg; Height 5 ft. hb 2 in. ; Pain 10/10; 15:46 BP 140 / 77; Pulse 86; Resp 15; Pulse Ox 98% ; bp 13:16 Body Mass Index 36.58 (90.72 kg, 157.48 cm) hb 13:16 Pain Scale: Adult hb MDM: 13:27 Medical Screening Exam initiated ec2 15:05 Data reviewed: vital signs, nurses notes. ED course: Patient arrives today for ec2 generalized abdominal pain in setting of known history of hepatocellular carcinoma. Examination is generally unrevealing. Lab work shows known liver dysfunction, known significant bilirubin elevation. Patient given morphine and Zofran for pain and nausea. no significant leukocytosis, doubt acute infection, suspect this is all sequela from patient's known HCC.. 15:08 ED course: Reassessment patient reports marked improvement in her symptoms. Will ec2 discharge home. Return precautions given.. 12/16 12:51 Order name: CBC with Diff; Complete Time: 14:53 ec2 12/16 12:51 Order name: CMP; Complete Time: 15:00 ec2 12/16 12:51 Order name: Lipase; Complete Time: 15:00 ec2 12/16 14:36 Order name: CBC Smear Scan; Complete Time: 14:53 EDMS 12/16 12:51 Order name: IV Saline Lock; Complete Time: 14:30 ec2 12/16 12:51 Order name: Labs collected and sent; Complete Time: 14:30 ec2 Administered Medications: 14:53 Drug: Ondansetron IVP 4 mg IVP once; over 2 minutes Route: IVP; Site: right antecubital;bp 15:48 Follow up: Response: No adverse reaction bp 14:53 Drug: morphine IVP or IV 4 mg IVP once over 4 mins Route: IVP; Infused Over: 4 mins; bp Site: right antecubital; 15:49 Follow up: Response: No adverse reaction bp Disposition Summary: 12/16/24 15:09 Discharge Ordered Notes: Location: Home ec2 Condition: Stable ec2 Diagnosis - Abdominal Pain, Liver Cancer ec2 Followup: ec2 - With: Private Physician - When: - Reason: Recheck today's complaints Discharge Instructions: - Discharge Summary Sheet ec2 Forms: - Medication Reconciliation Form ec2 - Antibiotic Education ec2 - Prescription Opioid Use ec2 - Patient Portal Instructions ec2 - Leadership Thank You Letter ec2 Prescriptions: - Ultram 50 mg Oral Tablet - take 1 tablet ORAL route every 6 hours As needed; 12 tablet; Refills: 0, ec2 Product Selection Permitted Signatures: Dispatcher [employer] Ines Yap RN RN Juanito Carranza RN RN Miguelito Clark MD MD ec2
--- NOTE | 2024-12-16 15:10 | ER ---
Nurse's Notes [facility] Name: Vianca Casey Age: 54 yrs Sex: Female : 1970 Arrival Date: 12/16/2024 Time: 12:02 Bed 6 Private MD: Diagnosis: Abdominal Pain, Liver Cancer Presentation: 12/16 13:16 Chief complaint: Patient states: c/o abdominal pain and nausea that started yesterday. hb Pain 10/10 "pressure". States her abdomen is swollen. Jaundice. Coronavirus screen: Vaccine status: Patient reports being unvaccinated. Ebola Screen: No symptoms or risks identified at this time. Initial Sepsis Screen: Does the patient meet any 2 criteria? HR > 90 bpm. Does the patient have a suspected source of infection?. Risk Assessment: Do you want to hurt yourself or someone else? Patient reports no desire to harm self or others. Onset of symptoms was December 15, 2024. 13:16 Method Of Arrival: Ambulatory hb 13:16 Acuity: MARY 3 hb Triage Assessment: 13:18 General: Appears uncomfortable, Behavior is calm, cooperative, appropriate for age. hb Pain: Complains of pain in abdomen Pain does not radiate. Pain currently is 10 out of 10 on a pain scale. Quality of pain is described as pressure, Pain began 1 day ago. Is continuous. EENT: No signs and/or symptoms were reported regarding the EENT system. Neuro: Level of Consciousness is awake, alert, obeys commands, Oriented to person, place, time, situation, Appropriate for age. Cardiovascular: Patient's skin is warm and dry. Respiratory: Airway is patent Respiratory effort is even, unlabored, Respiratory pattern is regular, symmetrical. GI: Reports lower abdominal pain, upper abdominal pain, nausea. : No signs and/or symptoms were reported regarding the genitourinary system. Derm: Skin is intact, with poor turgor Skin is jaundiced. Musculoskeletal: No signs and/or symptoms reported regarding the musculoskeletal system. 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 - Infectious Disease History:: Denies. - Social history:: Smoking status: Patient denies any tobacco usage or history of. Screenin:46 [facility] ED Fall Risk Assessment (Adult) History of falling in the last 3 months, bp including since admission No falls in past 3 months (0 pts) Confusion or Disorientation No (0 pts) Intoxicated or Sedated No (0 pts) Impaired Gait No (0 pts) Mobility Assist Device Used No (0 pt) Altered Elimination No (0 pt) Score/Fall Risk Level 0 - 2 = Low Risk Oriented to surroundings. Abuse screen: Denies threats or abuse. Denies injuries from another. Nutritional screening: No deficits noted. Tuberculosis screening: No symptoms or risk factors identified. Assessment: 14:50 General: Appears in no apparent distress. uncomfortable, Behavior is cooperative, bp appropriate for age, anxious. Pain: Complains of pain in abdomen. Neuro: No deficits noted. Cardiovascular: No deficits noted. GI: Abdomen is obese, noted to have ascites. 15:46 Reassessment: Patient appears in no apparent distress at this time. Patient is alert, bp oriented x 3, equal unlabored respirations, skin warm/dry/pink. Vital Signs: 13:16 BP 119 / 81; Pulse 99; Resp 20; Temp 98.1; Pulse Ox 97% ; Weight 90.72 kg; Height 5 ft. hb 2 in. ; Pain 10/10; 15:46 BP 140 / 77; Pulse 86; Resp 15; Pulse Ox 98% ; bp 13:16 Body Mass Index 36.58 (90.72 kg, 157.48 cm) hb 13:16 Pain Scale: Adult hb ED Course: 12:04 Patient arrived in ED. ra3 12:04 Miguelito Hawkins MD is Attending Physician. ec2 13:18 Triage completed. hb 13:18 Arm band placed on Patient placed in waiting room. hb 14:30 CBC with Diff Sent. cc6 14:30 CMP Sent. cc6 14:30 Lipase Sent. cc6 14:30 Initial lab(s) drawn, by ak, sent to lab. Inserted saline lock: 20 gauge in right cc6 antecubital area, using aseptic technique. Blood collected. Flushed with 10 mL NS. 14:53 Juanito Teresa, RN is Primary Nurse. bp 15:46 Patient has correct armband on for positive identification. bp 15:46 No provider procedures requiring assistance completed. IV discontinued, intact, bp bleeding controlled, No redness/swelling at site. Pressure dressing applied. Administered Medications: 14:53 Drug: Ondansetron IVP 4 mg IVP once; over 2 minutes Route: IVP; Site: right antecubital;bp 15:48 Follow up: Response: No adverse reaction bp 14:53 Drug: morphine IVP or IV 4 mg IVP once over 4 mins Route: IVP; Infused Over: 4 mins; bp Site: right antecubital; 15:49 Follow up: Response: No adverse reaction bp Medication: 15:46 VIS not applicable for this client. bp Outcome: 15:09 Discharge ordered by . [email or web address] 15:46 Discharged to home ambulatory, with family, bp 15:46 Condition: stable 15:46 Discharge instructions given to patient, family, Instructed on discharge instructions, follow up and referral plans. medication usage, Demonstrated understanding of instructions, follow-up care, medications, Prescriptions given X 1, 15:49 Patient left the ED. bp Signatures: Ines Herrera, RN RN Juanito Teresa, DAVE RN bp Miguelito Hawkins MD MD ec2 Magda Álvarez 3 Rianna Calhoun cc6
[2024-12-16 16:05] VITALS: TEMP 98.1
[2024-12-16 16:07] VITALS: BP 140/77; O2SAT 98
== END 2024-12-16 15:49 | disposition home or self-care (01) ==
LOC: ER 12:02
DX: C22.0 Liver cell carcinoma (principal)
CPT/HCPCS: 85025; 36415; 83690; 80053; J2405; 96374; 96375; 99284

== ENCOUNTER 2024-12-29 15:37 | Emergency (ER) | payer OTHER, SELFPAY ==
--- NOTE | 2024-12-29 16:44 | ER ---
Nurse's Notes [facility] Name: Vianca Casey Age: 54 yrs Sex: Female : 1970 Arrival Date: 12/29/2024 Time: 15:37 Bed 16 Private MD: Diagnosis: Pain in foot and toes Presentation: 12/29 15:49 Chief complaint: Patient states: bilateral lower leg/ feet cramping that has been ss ongoing x 2 days. Pt reports she is on the liver transplant list, but states she feels like everything with her liver is going well right now. Coronavirus screen: Client denies travel out of the [place] in the last 14 days. Ebola Screen: Patient denies exposure to infectious person. Patient denies travel to an Ebola-affected area in the 21 days before illness onset. Initial Sepsis Screen: Does the patient meet any 2 criteria? No. Patient's initial sepsis screen is negative. Does the patient have a suspected source of infection? No. Patient's initial sepsis screen is negative. Risk Assessment: Do you want to hurt yourself or someone else? Patient reports no desire to harm self or others. Onset of symptoms was December 28, 2024. 15:49 Method Of Arrival: Ambulatory ss 15:49 Acuity: MARY 3 ss Triage Assessment: 15:52 General: Appears in no apparent distress. comfortable, Behavior is calm, cooperative. ss Pain: Complains of pain in bilateral lower extremities/ calves/ feet Pain currently is 0 out of 10 on a pain scale. Is continuous. EENT: Sclera/Cornea yellow sclera. Neuro: Level of Consciousness is awake, alert, obeys commands, Oriented to person, place, time, situation, Leather Splitter are equal bilaterally Speech is normal, Facial symmetry appears normal, Pupils are PERRLA. Respiratory: Airway is patent Respiratory effort is even, unlabored, Respiratory pattern is regular, symmetrical. : Derm: Skin is intact, Skin is jaundiced. DIRECTOR PRODUCT SAFETY: 16:56 unknown cm10 Historical: - Allergies: 15:51 NKDA; ss - PMHx: 15:51 Anemia; Cerebrovascular accident; cirrhosis of liver; secondary to alcholism; Seizure; ss - PSHx: 15:51 Appendectomy; Cholecystectomy; hysterectomy; knee surgery; ss - Immunization history:: Client reports receiving the 2nd dose of the Covid vaccine. - Infectious Disease History:: Denies. - Social history:: Smoking status: Patient denies any tobacco usage or history of. Screenin:55 [facility] ED Fall Risk Assessment (Adult) History of falling in the last 3 months, cm10 including since admission No falls in past 3 months (0 pts) Confusion or Disorientation No (0 pts) Intoxicated or Sedated No (0 pts) Impaired Gait No (0 pts) Mobility Assist Device Used No (0 pt) Altered Elimination No (0 pt) Score/Fall Risk Level 0 - 2 = Low Risk Oriented to surroundings, Maintained a safe environment, Hourly rounding (assess needs \T\ fall precautionary measures) done. Abuse screen: Denies threats or abuse. Denies injuries from another. Nutritional screening: No deficits noted. Tuberculosis screening: No symptoms or risk factors identified. Assessment: 16:45 General: Appears in no apparent distress. comfortable, Behavior is calm, cooperative. cm10 Neuro: No deficits noted. Level of Consciousness is awake, alert, obeys commands, Oriented to person, place, time, situation, Appropriate for age. Respiratory: No deficits noted. Airway is patent Respiratory effort is even, unlabored, Respiratory pattern is regular, symmetrical. Derm: Skin is yellow. Musculoskeletal: No deficits noted. Range of motion: intact in all extremities. Musculoskeletal: Reports pain in right leg and left leg. Vital Signs: 15:49 BP 132 / 74; Pulse 102; Resp 20; Temp 98.7(O); Pulse Ox 100% on R/A; Weight 86.18 kg; ss Height 5 ft. 2 in. ; Pain 0/10; 16:55 BP 132 / 74; Pulse 87; Resp 15; Pulse Ox 98% ; cm10 15:49 Body Mass Index 34.75 (86.18 kg, 157.48 cm) ss 15:49 Pain Scale: Adult ss ED Course: 15:40 Patient arrived in ED. ts1 15:45 Yelena Lamar, DAVE is Primary Nurse. cm10 15:49 Jayesh Snyder FNP-C is PHCP. dr5 15:49 Miguelito Hawkins MD is Attending Physician. dr5 15:51 Triage completed. ss 15:51 Arm band placed on right wrist. ss 16:55 Patient has correct armband on for positive identification. Provided Education on: cm10 Follow-up instructions. 16:56 No provider procedures requiring assistance completed. Patient did not have IV access cm10 during this emergency room visit. Administered Medications: 16:42 CANCELLED (Changed to 50mg): [id number] mg PO once dr5 16:54 Drug: traMADol PO 50 mg PO once Route: PO; cm10 16:55 Follow up: Response: Medication administered at discharge. cm10 Medication: 16:55 VIS not applicable for this client. cm10 Outcome: 16:43 Discharge ordered by MD. dr5 16:56 Discharged to home ambulatory, Pt waiting for ride in [facility]. cm10 16:56 Condition: good 16:56 Discharge instructions given to patient, Instructed on discharge instructions, follow up and referral plans. medication usage, Demonstrated understanding of instructions, follow-up care, medications, Prescriptions given X 2, 16:57 Patient left the ED. cm10 Signatures: Monica Hawkins, RN RN ss Za Shaffer, MILES PAS ts1 Yelena Lamar RN RN cm10 Jayesh Snyder, RN CARE MANAGER-C RN CARE MANAGER-Cdr5
--- NOTE | 2024-12-29 16:44 | EDPHYS ---
Physician Documentation [facility] Name: Vianca Casey Age: 54 yrs Sex: Female : 1970 Arrival Date: 12/29/2024 Time: 15:37 Bed 16 Private MD: ED Physician Miguelito Hawkins HPI: 12/29 18:09 This 54 yrs old Female presents to ER via Ambulatory with complaints of Leg dr5 Pain. 18:09 Patient is a 54-year-old female with history of CVA, cirrhosis of liver and liver dr5 transplant, seizure, anemia coming in with 3 days of intermittent bilateral foot cramps that occur at night around 1 to 3 AM. Patient reports that her spasms resolved in the morning. Patient denies any complaints at this time.. DNA ANALYST: 16:56 unknown cm10 Historical: - Allergies: 15:51 NKDA; ss - PMHx: 15:51 Anemia; Cerebrovascular accident; cirrhosis of liver; secondary to alcholism; Seizure; ss - PSHx: 15:51 Appendectomy; Cholecystectomy; hysterectomy; knee surgery; ss - Immunization history:: Client reports receiving the 2nd dose of the Covid vaccine. - Infectious Disease History:: Denies. - Social history:: Smoking status: Patient denies any tobacco usage or history of. ROS: 18:09 Constitutional: as per hpi dr5 Exam: 18:09 Constitutional: This is a well developed, well nourished patient who is awake, alert, dr5 and in no acute distress. Head/Face: Normocephalic, atraumatic. Neck: Trachea midline, no thyromegaly or masses palpated, and no cervical lymphadenopathy. Supple, full range of motion without nuchal rigidity, or vertebral point tenderness. No Meningismus. Chest/axilla: Normal chest wall appearance and motion. Nontender with no deformity. No lesions are appreciated. Cardiovascular: Regular rate and rhythm with a normal S1 and S2. Normal PMI, no JVD. No pulse deficits. Respiratory: Lungs have equal breath sounds bilaterally, clear to auscultation. No rales, rhonchi or wheezes noted. No increased work of breathing, no retractions or nasal flaring. Abdomen/GI: Soft, non-tender, non-distended Back: No spinal tenderness. No costovertebral tenderness. Full range of motion. 18:09 Musculoskeletal/extremity: Extremities: noted in the right foot and left foot: swelling, 18:09 Neuro: Exam negative for acute changes, Vital Signs: 15:49 BP 132 / 74; Pulse 102; Resp 20; Temp 98.7(O); Pulse Ox 100% on R/A; Weight 86.18 kg; ss Height 5 ft. 2 in. ; Pain 0/10; 16:55 BP 132 / 74; Pulse 87; Resp 15; Pulse Ox 98% ; cm10 15:49 Body Mass Index 34.75 (86.18 kg, 157.48 cm) ss 15:49 Pain Scale: Adult ss MDM: 15:49 Medical Screening Exam initiated dr5 18:09 Differential diagnosis: contusion, abrasion, Muscle spasm. Data reviewed: vital signs, dr5 nurses notes. I considered the following discharge prescriptions or medication management in the emergency department Medications were administered in the Emergency Department. See MAR. Care significantly affected by the following chronic conditions: Liver transplant, anemia, CVA, seizure. Care significantly affected by the following Social Determinants of Health: Poor access to healthcare and/or lack of insurance, Poor access to transportation, Problems related to employment. Counseling: I had a detailed discussion with the patient and/or guardian regarding the historical points, exam findings, and any diagnostic results supporting the discharge/admit diagnosis, the presence of at least one elevated blood pressure reading (>120/80) during this emergency department visit, the need for outpatient follow up, for definitive care, a family practitioner, to return to the emergency department if symptoms worsen or persist or if there are any questions or concerns that arise at home. ED course: Concerns for possible muscle spasms at night and increased swelling due to patient only taking Lasix in the morning. Will trial patient on short term low-dose Lasix at night as well as low-dose muscle relaxer to help with muscle spasms of feet. Recommended patient follow-up with transplant team and primary care doctor this week. Patient verbalized understanding and will return to ER for worsening conditions.. Administered Medications: 16:42 CANCELLED (Changed to 50mg): [id number] mg PO once dr5 16:54 Drug: traMADol PO 50 mg PO once Route: PO; cm10 16:55 Follow up: Response: Medication administered at discharge. cm10 Disposition Summary: 12/29/24 16:43 Discharge Ordered Notes: Location: Home dr5 Condition: Stable dr5 Diagnosis - Pain in foot and toes dr5 Followup: dr5 - With: Emergency Department - When: As needed - Reason: Worsening of condition Followup: dr5 - With: Private Physician - When: 1 - 2 days - Reason: Recheck today's complaints, Continuance of care, Re-evaluation by your physician Discharge Instructions: - Discharge Summary Sheet dr5 - Muscle Pain, Adult dr5 Forms: - Medication Reconciliation Form dr5 - Patient Portal Instructions dr5 - Leadership Thank You Letter dr5 Prescriptions: - Lasix 20 mg Oral tablet - take 1 tablet ORAL route At bedtime As needed; 20 tablet; Refills: 0, Product dr5 Selection Permitted - Cyclobenzaprine 5 mg Oral tablet - take 1 tablet ORAL route At bedtime As needed; 15 tablet; Refills: 0, Product dr5 Selection Permitted Signatures: Monica Hawkins, RN RN Yleena Wang RN RN cm10 Jayesh Snyder, MAPPING ENGINEER-C MAPPING ENGINEER-Cdr5 Corrections: (The following items were deleted from the chart) 16:42 16:34 traMADol PO 25 mg PO once ordered. dr5 dr5 16:42 16:42 traMADol PO 25 mg PO once ordered. dr5 dr5
[2024-12-29] MEDS ORDERED: TRAMADOL HCL 50 MG TAB ONE (16:45)
[2024-12-29 17:04] VITALS: BP 132/74; TEMP 98.7
[2024-12-29 17:05] VITALS: O2SAT 98
== END 2024-12-29 16:57 | disposition home or self-care (01) ==
LOC: ER 15:37
DX: M79.672 Pain in left foot (principal); M79.671 Pain in right foot; M79.675 Pain in left toe(s); M79.674 Pain in right toe(s)

== ENCOUNTER 2025-06-08 10:40 | Emergency (ER) | payer OTHER, SELFPAY ==
[2025-06-08] MEDS ORDERED: MORPHINE 4 MG/ML SYR ONE ×2 (12:10→14:09)
[2025-06-08] MEDS ORDERED: ONDANSETRON 4 MG/2 ML VIAL ONE (12:10)
--- NOTE | 2025-06-08 13:27 | RAD REPORT ---
EXAM: XR Wrist Left 3 View HISTORY: [facility] MAIN PAIN Bed Name: [id number] COMPARISON: None TECHNIQUE: 3 views of the left wrist. FINDINGS: No evidence of acute fracture or dislocation. Joint alignment is maintained. No soft tissue swelling is seen. Mild degenerative changes are present, with 7 mm anterior radial subchondral cystic changes. IMPRESSION: No evidence of acute osseous abnormality. degenerative changes as above.
--- NOTE | 2025-06-08 13:43 | RAD REPORT ---
EXAMINATION: XR LEFT SHOULDER CLINICAL INDICATION: Female, 54 years old. PAIN TECHNIQUE: Internal and external AP view radiograph of the left shoulder were obtained. COMPARISON: No prior exam. FINDINGS: Mild caudal subluxation of the humeral head. Crescentic radiodensity posterior to the humer al head seen on the Y view, could represent dystrophic calcification in the periarticular soft tissues versus a small displaced glenoid fragment. Moderate arthropathy. No other focal bone lesion. Soft tissue swelling about the shoulder. IMPRESSION: Crescentic radiodensity posterior to the humeral head, could represent dystrophic periarticular calci fication versus a small displaced glenoid fracture fragment.
--- NOTE | 2025-06-08 13:54 | RAD REPORT ---
EXAM: CT brain without contrast HISTORY: TRAUMA COMPARISON: none TECHNIQUE: Multiple contiguous axial images were obtained and a CT of the brain without contrast. Sag ittal and coronal reformats were performed. FINDINGS: No evidence of hydrocephalus, intracranial hemorrhage, or extra-axial fluid collection. The brain is normal in morphology. The calvarium is intact. The visualized paranasal sinuses and mastoid air cells are essentially clear . IMPRESSION: No evidence of acute intracranial abnormality. EXAM: CT of the cervical spine without contrast HISTORY: TRAUMA COMPARISON: None TECHNIQUE: Multiple contiguous axial images were obtained in a CT of the cervical spine without contr ast. Sagittal and coronal reformats were performed. FINDINGS: The vertebral bodies demonstrate normal height and alignment. No evidence of acute fracture or subluxation.. Mild degenerative changes are present. No prevertebral soft tissue swelling is seen. The posterior facets are well aligned. Normal alignment of the skull base with the cervical spine is seen. The lung apices are unremarkable. IMPRESSION: No evidence of acute osseous abnormality of the cervical spine.
--- NOTE | 2025-06-08 14:03 | ER ---
Nurse's Notes [facility] Name: Vianca Casey Age: 54 yrs Sex: Female : 1970 Arrival Date: 06/08/2025 Time: 10:40 Bed 11 Private MD: Diagnosis: Other sprain of left shoulder joint Presentation: 06/08 10:59 Chief complaint: Patient states: felll on unevel sidewalk abt 30m prior to arrival, hit jl7 head and L arm on concrete, C/O 10/10 pain. Coronavirus screen: At this time, the client does not indicate any symptoms associated with coronavirus-19. Ebola Screen: No symptoms or risks identified at this time. Initial Sepsis Screen: Does the patient meet any 2 criteria? No. Patient's initial sepsis screen is negative. Does the patient have a suspected source of infection? No. Patient's initial sepsis screen is negative. Risk Assessment: Do you want to hurt yourself or someone else? Patient reports no desire to harm self or others. Onset of symptoms was June 08, 2025 at 10:30. 10:59 Method Of Arrival: Wheelchair jl7 10:59 Acuity: MARY 3 jl7 10:59 Care prior to arrival: None. Mechanism of Injury: Fall from standing position. Trauma jl7 event details: Injury occurred in the [facility]. Triage Assessment: 11:03 General: Appears distressed, uncomfortable, Behavior is agitated, crying, restless. jl7 Pain: Complains of pain in head and left arm Pain currently is 10 out of 10 on a pain scale. COMMODITY ANALYST: 11:05 LMP N/A - Post-menopause, Not jl7 Trauma Activation: Not Applicable Physician: ED Physician; Name: ; Notified At: ; Arrived At: Physician: General Surgeon; Name: ; Notified At: ; Arrived At: Physician: Radiology; Name: ; Notified At: ; Arrived At: Physician: Respiratory; Name: ; Notified At: ; Arrived At: Physician: Lab; Name: ; Notified At: ; Arrived At: Historical: - Allergies: 11:03 Sulfa (Sulfonamide Antibiotics); jl7 - PMHx: 14:36 Seizure; jl7 - Immunization history:: Adult Immunizations up to date. - Infectious Disease History:: Denies. - Immunization history: Last tetanus immunization: unknown. - Social history:: Patient/guardian denies using Smoking status: Patient denies any tobacco usage or history of. Patient/guardian denies using. Screenin:39 [facility] ED Fall Risk Assessment (Adult) History of falling in the last 3 months, jl7 including since admission Yes- single mechanical fall (1 pt) Confusion or Disorientation No (0 pts) Intoxicated or Sedated No (0 pts) Impaired Gait No (0 pts) Mobility Assist Device Used No (0 pt) Altered Elimination No (0 pt) Score/Fall Risk Level 0 - 2 = Low Risk Oriented to surroundings, Maintained a safe environment. Abuse screen: Denies threats or abuse. Denies injuries from another. Nutritional screening: No deficits noted. Tuberculosis screening: No symptoms or risk factors identified. Primary Survey: 10:59 NO uncontrolled hemorrhage observed. A: The client is awake and alert. The airway is jl7 patent. Breathing/Chest: Spontaneous respiratory effort, equal unlabored respirations, breath sounds clear bilaterally, regular pattern, symmetrical chest rise and fall. Circulation: No external hemorrhage present. Regular and strong central pulse, skin warm/dry/normal color. Disability Client is alert. Exposure/Environment: Obvious injury(ies) are noted at this time: abrasions to bilateral arms, hematoma to left eyebrow, pain to left arm. 14:42 Reassessment Alertness and Airway: Awake and alert. The airway is patent. Breathing: jl7 Spontaneous respiratory effort, equal unlabored respirations, breath sounds clear bilaterally, regular pattern with symmetrical chest rise and fall. Circulation: No external hemorrhage noted. Regular and strong central pulse, skin warm/dry/normal color. Disability: Alert. Vital Signs: 10:59 BP 117 / 67; Pulse 77; Resp 20; Temp 97.2; Pulse Ox 98% on R/A; Weight 76.66 kg; Height jl7 5 ft. 2 in. ; Pain 10/10; 13:15 Pain 8/10; jl7 14:38 Pain 6/10; jl7 14:46 BP 102 / 55; Pulse 59; Resp 16; Pulse Ox 100% on R/A; jl7 10:59 Body Mass Index 30.91 (76.66 kg, 157.48 cm) jl7 10:59 Pain Scale: Adult jl7 13:15 Pain Scale: Adult jl7 14:38 Pain Scale: Adult jl7 [place] Coma Score: 14:42 Eye Response: spontaneous(4). Motor Response: obeys commands(6). Verbal Response: jl7 oriented(5). Total: 15. Trauma Score (Adult): 14:42 Eye Response: spontaneous(1); Verbal Response: oriented(1); Motor Response: obeys jl7 commands(2); Systolic BP: > 89 mm Hg(4); Respiratory Rate: 10 to 29 per min(4); [place] Score: 15; Trauma Score: 12 ED Course: 10:42 Patient arrived in ED. gl 10:43 Jay[facility] Snyder [facility]-C [facility] 10:43 Russel Baxter is Attending Physician. dr5 11:03 Triage completed. jl7 11:05 Arm band placed on right wrist. jl7 12:45 Estella Junior, RN is Primary Nurse. jl7 12:45 Inserted saline lock: 20 gauge in right antecubital area, using aseptic technique. jl7 Flushed with 10 mL NS. 12:50 Shoulder Left (2 View) XRAY In Process Unspecified. EDMS 12:50 Wrist Left (3 View) XRAY In Process Unspecified. EDMS 12:59 CT Head C Spine In Process Unspecified. EDMS 14:02 Grant Sanford MD is Referral Physician. dr5 14:02 Sean Márquez MD is Referral Physician. dr5 14:39 Patient has correct armband on for positive identification. Provided Education on: use jl7 of call levin. 14:39 No provider procedures requiring assistance completed. IV discontinued, intact, jl7 bleeding controlled, No redness/swelling at site. Pressure dressing applied. 14:42 Patient maintains SpO2 saturation greater than 95% on room air. Thermoregulation: warm jl7 blanket given to patient. Administered Medications: 12:45 Drug: morphine IVP or IV 4 mg IVP once over 4 mins Route: IVP; Infused Over: 4 mins; jl7 Site: right antecubital; 13:15 Follow up: Pain 8/10 Adult; Response: No adverse reaction; Pain is decreased jl7 13:15 Follow up: Response: RASS: Alert and Calm (0) jl7 12:45 Drug: Ondansetron IVP 4 mg IVP once; over 2 minutes Route: IVP; Site: right antecubital;jl7 14:38 Follow up: Response: No adverse reaction jl7 14:35 Drug: morphine IVP or IV 4 mg IVP once over 4 mins Route: IVP; Infused Over: 4 mins; jl7 Site: right antecubital; 14:38 Follow up: Pain 6/10 Adult; Response: No adverse reaction; Pain is decreased; RASS: jl7 Drowsy (-1) 14:36 Drug: [place] PO 10 mg-325 mg 1 tabs PO once Route: PO; jl7 14:38 Follow up: Response: Medication administered at discharge. jl7 Medication: 14:39 VIS not applicable for this client. jl7 Intake: 14:42 PO: 0ml; Total: 0ml. jl7 Outcome: 12:45 Discharged to home via wheelchair, with family, jl7 12:45 Condition: stable 12:45 Discharge instructions given to patient, family, Instructed on discharge instructions, follow up and referral plans. medication usage, Demonstrated understanding of instructions, follow-up care, medications, Prescriptions given X 2, 14:02 Discharge ordered by MD. dr5 14:42 Patient's length of stay was not longer than 2 hours. jl7 15:02 Patient left the ED. jl7 Signatures: Dispatcher [employer] Estella Bowens RN RN elvi7 Jayesh Snyder, QUALITY AND RELIABILITY ENGINEER-C QUALITY AND RELIABILITY ENGINEER-Cdr5 No Max, Reg Reg gl Corrections: (The following items were deleted from the chart) 11:03 11:03 Allergies: NKDA; jl7 11: 11:03 PMHx: Cerebrovascular accident; elvi7 11: 11:03 PMHx: Seizure; jl7 11: 11:03 PMHx: Anemia; jl7 11: 11:03 PMHx: cirrhosis of liver; secondary to alcholism; jl7 11: 11:03 PSHx: Appendectomy; elvi7 11: 11:03 PSHx: hysterectomy; jl7 11: 11:03 PSHx: knee surgery; jl7 11: 11:03 PSHx: Cholecystectomy; jl7 7
--- NOTE | 2025-06-08 14:03 | EDPHYS ---
Physician Documentation [facility] Name: Vianca Casey Age: 54 yrs Sex: Female : 1970 Arrival Date: 06/08/2025 Time: 10:40 Bed 11 Private MD: ED Physician Russel Baxter HPI: 06/08 18:11 This 54 yrs old Female presents to ER via Wheelchair with complaints of Fall dr5 Injury, Shoulder Injury. 18:11 Details of fall: The patient fell from an upright position, while standing. Onset: The dr5 symptoms/episode began/occurred 30 minute(s) ago. Associated injuries: The patient sustained anterior aspect of left shoulder, painful injury, left rastafari, painful injury, left wrist. Patient is a 54-year-old female history of seizures coming in with fall after slipping and missing step. Patient reports she fell and left-sided hit her shoulder, face, and left wrist. Patient states that she did not take any prior to arrival. Patient denies loss consciousness. Patient denies taking blood thinners.. 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 - Infectious Disease History:: Denies. - Immunization history: Last tetanus immunization: unknown. - Social history:: Patient/guardian denies using Smoking status: Patient denies any tobacco usage or history of. Patient/guardian denies using. ROS: 18:11 Constitutional: as per hpi dr5 Exam: 18:11 Constitutional: This is a well developed, well nourished patient who is awake, alert, dr5 and in no acute distress. Head/Face: Normocephalic, atraumatic. Eyes: Pupils equal round and reactive to light, extra-ocular motions intact. Lids and lashes normal. Conjunctiva and sclera are non-icteric and not injected. Cornea within normal limits. Periorbital areas with no swelling, redness, or edema. Neck: Trachea midline, no thyromegaly or masses palpated, and no cervical lymphadenopathy. Supple, full range of motion without nuchal rigidity, or vertebral point tenderness. No Meningismus. Chest/axilla: Normal chest wall appearance and motion. Nontender with no deformity. No lesions are appreciated. Cardiovascular: Regular rate and rhythm with a normal S1 and S2. Normal PMI, no JVD. No pulse deficits. Respiratory: Lungs have equal breath sounds bilaterally, clear to auscultation. No rales, rhonchi or wheezes noted. No increased work of breathing, no retractions or nasal flaring. Back: No spinal tenderness. No costovertebral tenderness. Full range of motion. Skin: Warm, dry with normal turgor. Normal color with no rashes, no lesions, and no evidence of cellulitis. Neuro: Awake and alert, GCS 15, oriented to person, place, time, and situation. Cranial nerves II-XII grossly intact. Motor strength 5/5 in all extremities. Sensory grossly intact. Cerebellar exam normal. Normal gait. 18:11 Musculoskeletal/extremity: Extremities: grossly normal except: noted in the anterior aspect of left shoulder: pain, tenderness, noted in the left wrist: abrasion, noted in the left rastafari: contusion, pain, ROM: limited active range of motion due to pain, in the anterior aspect of left shoulder, Circulation is intact in all extremities. Sensation intact. Tendon exam: specific tendon testing normal through active and passive range of motion Vital Signs: 10:59 BP 117 / 67; Pulse 77; Resp 20; Temp 97.2; Pulse Ox 98% on R/A; Weight 76.66 kg; Height jl7 5 ft. 2 in. ; Pain 10/10; 13:15 Pain 8/10; jl7 14:38 Pain 6/10; jl7 14:46 BP 102 / 55; Pulse 59; Resp 16; Pulse Ox 100% on R/A; jl7 10:59 Body Mass Index 30.91 (76.66 kg, 157.48 cm) jl7 10:59 Pain Scale: Adult jl7 13:15 Pain Scale: Adult jl7 14:38 Pain Scale: Adult jl7 [place] Coma Score: 14:42 Eye Response: spontaneous(4). Motor Response: obeys commands(6). Verbal Response: jl7 oriented(5). Total: 15. Trauma Score (Adult): 14:42 Eye Response: spontaneous(1); Verbal Response: oriented(1); Motor Response: obeys jl7 commands(2); Systolic BP: > 89 mm Hg(4); Respiratory Rate: 10 to 29 per min(4); [place] Score: 15; Trauma Score: 12 Procedures: 18:11 Splinting: Splint applied to anterior aspect of left shoulder using sling, applied by dr5 nurse. Examined by me, post splint application: neurovascular intact, 2+ distal pulses palpable, brisk capillary refill noted, Patient tolerated well. MDM: 10:43 Medical Screening Exam initiated dr5 18:11 Differential diagnosis: abrasion, closed head injury, contusion, fracture, sprain, dr5 strain. Data reviewed: vital signs, nurses notes, radiologic studies, CT scan, plain films. Consideration of Admission/Observation Escalation of care including admission/observation considered. Admission considered patient found intracranial hemorrhage. I considered the following discharge prescriptions or medication management in the emergency department I discussed and recommended Over The Counter medications, Medications were administered in the Emergency Department. See MAR. Independent interpretation of the following test(s) in the Emergency Department X-Ray: My interpretation is Independent interpretation of left wrist did not reveal any fracture.. Care significantly affected by the following chronic conditions: Seizure disorder. Care significantly affected by the following Social Determinants of Health: Poor access to healthcare and/or lack of insurance, Poor access to transportation, Problems related to employment. Counseling: I had a detailed discussion with the patient and/or guardian regarding the historical points, exam findings, and any diagnostic results supporting the discharge/admit diagnosis, the presence of at least one elevated blood pressure reading (>120/80) during this emergency department visit, radiology results, the need for outpatient follow up, for definitive care, a orthopedic surgeon, to return to the emergency department if symptoms worsen or persist or if there are any questions or concerns that arise at home. Medication response: Troy, morphine. Response to treatment: the patient's symptoms have markedly improved after treatment. Special discussion: I have referred the patient to see his PCP for further evaluation of high blood pressure. I discussed with the patient/guardian in detail that at this point there is no indication for admission to the hospital. It is understood, however, that if the symptoms persist or worsen the patient needs to return immediately for re-evaluation. Based on the history and exam findings, there is no indication for further emergent testing or inpatient evaluation. I discussed with the patient/guardian the need to see the orthopedic surgeon for further evaluation of the symptoms. ED course: Sling applied in ER. Patient reports markedly feeling better. No intracranial hemorrhage on CT scan. Will have patient follow-up with orthopedics in one 1 week. Recommended taking ibuprofen and Tylenol as needed for pain. Recommended patient call on Tuesday for appointment. Strict ER precautions given. All questions were answered.. 06/08 11:14 Order name: CT Head C Spine; Complete Time: 13:55 dr5 06/08 11:14 Order name: Shoulder Left (2 View) XRAY; Complete Time: 13:44 dr5 06/08 11:14 Order name: Wrist Left (3 View) XRAY; Complete Time: 13:35 dr5 06/08 12:45 Order name: IV Start; Complete Time: 12:45 jl7 06/08 13:55 Order name: Sling; Complete Time: 14:36 dr5 Administered Medications: 12:45 Drug: morphine IVP or IV 4 mg IVP once over 4 mins Route: IVP; Infused Over: 4 mins; 7 Site: right antecubital; 13:15 Follow up: Pain 8/10 Adult; Response: No adverse reaction; Pain is decreased jl7 13:15 Follow up: Response: RASS: Alert and Calm (0) jl7 12:45 Drug: Ondansetron IVP 4 mg IVP once; over 2 minutes Route: IVP; Site: right antecubital;7 14:38 Follow up: Response: No adverse reaction jl7 14:35 Drug: morphine IVP or IV 4 mg IVP once over 4 mins Route: IVP; Infused Over: 4 mins; 7 Site: right antecubital; 14:38 Follow up: Pain 6/10 Adult; Response: No adverse reaction; Pain is decreased; RASS: jl Drowsy (-1) 14:36 Drug: Troy PO 10 mg-325 mg 1 tabs PO once Route: PO; jl7 14:38 Follow up: Response: Medication administered at discharge. 7 Disposition: 18:36 Co-signature as Attending Physician, Russel Baxter I agree with the assessment ci and plan of care. I reviewed the patient's care provided by the Advanced Practice Provider and agree with the diagnosis and treatment plan. Disposition Summary: 06/08/25 14:02 Discharge Ordered Notes: Location: Home dr5 Condition: Stable dr5 Diagnosis - Other sprain of left shoulder joint dr5 Followup: dr5 - With: Emergency Department - When: As needed - Reason: Worsening of condition Followup: dr5 - With: Grant Sanford MD - When: 1 week - Reason: Recheck today's complaints, Continuance of care, Re-evaluation by your physician Followup: dr5 - With: Sean Márquez MD - When: 1 week - Reason: Recheck today's complaints, Continuance of care, Re-evaluation by your physician Discharge Instructions: - Discharge Summary Sheet dr5 - Shoulder Pain dr5 - How to Use a Sling dr5 Forms: - Medication Reconciliation Form dr5 - Prescription Opioid Use dr5 - Patient Portal Instructions dr5 - Leadership Thank You Letter dr5 Prescriptions: - Tramadol 50 mg Oral Tablet - take 1 tablet ORAL route every 8 hours as needed; 12 tablet; Refills: 0, dr5 Product Selection Permitted - Tylenol-Codeine #3 300mg-30mg Oral tablet - take 2 tablets ORAL route every 6 hours As needed; 20 tablet; Refills: 0, dr5 Product Selection Permitted Signatures: Dispatcher [employer] EDEstella Gonzalez RN RN elvi7 Russel Baxter Dustin, CAPTAIN FISHING VESSEL-C CAPTAIN FISHING VESSEL-Cdr5 Corrections: (The following items were deleted from the chart) 11:03 11:03 Allergies: NKDA; sid jl7 11:03 11:03 PMHx: Cerebrovascular accident; elvi7 jl7 11:03 11:03 PMHx: Seizure; elvi7 jl7 11: 11:03 PMHx: Anemia; elvi7 jl7 11: 11:03 PMHx: cirrhosis of liver; secondary to alcholism; sdi jl7 11: 11:03 PSHx: Appendectomy; sid jl7 11: 11:03 PSHx: hysterectomy; elvi7 jl7 11: 11:03 PSHx: knee surgery; sid jl7 11: 11:03 PSHx: Cholecystectomy; elvi7 jl7 11:15 11:15 Head C Spine MPR Wo Con+CT.RAD.BRZ ordered. EDMS EDMS 11:15 11:15 Shoulder Left 2 View+RAD.RAD.BRZ ordered. EDMS EDMS 11:15 11:15 Wrist Left 3 View+RAD.RAD.BRZ ordered. EDMS EDMS
[2025-06-08] MEDS ORDERED: HYDROCODONE/APAP 10/325 TAB ONE (14:09)
[2025-06-08 15:33] VITALS: TEMP 97.2
[2025-06-08 15:36] VITALS: BP 102/55; O2SAT 100
== END 2025-06-08 15:02 | disposition home or self-care (01) ==
LOC: ER 10:40
DX: S43.492A Other sprain of left shoulder joint, initial encounter (principal); W01.0XXA Fall on same level from slipping, tripping and stumbling without subsequent striking against object, initial encounter
CPT/HCPCS: 70450; 72125; 73030; 73110; 96375; 96374; 99284; J2405

== ENCOUNTER 2025-06-25 13:51 | Emergency (ER) | payer OTHER ==
[2025-06-25] MEDS ORDERED: TRAMADOL HCL 50 MG TAB ONE (13:58)
[2025-06-25] MEDS ORDERED: ONDANSETRON 4 MG (ODT) TAB ONE (13:58)
--- NOTE | 2025-06-25 14:05 | EDPHYS ---
Physician Documentation [facility] Name: Vianca Casey Age: 54 yrs Sex: Female : 1970 Arrival Date: 06/25/2025 Time: 13:51 Bed IW1 Private MD: ED Physician Jason Still HPI: 06/25 13:58 This 54 yrs old Female presents to ER via Unassigned with complaints of Arm Pain. kb 13:58 Pt is a 54 year old female who presents for shoulder pain. STates she fell on May and fractured her shoulder. States they gave her pain medication at the time, but she is out. States the pain medication was just to get her through until she could see an orthopedist, but she didn't follow up. States she dropped off a disc with Dr Sanford today and he is going to call her about scheduling a repair, but she was told to come here for pain management. . 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 - Infectious Disease History:: Denies. - Social history:: Smoking status: Patient denies any tobacco usage or history of. ROS: 14:01 Constitutional: As per HPI kb Exam: 14:01 Constitutional: This is a well developed, well nourished patient who is awake, alert, kb and in no acute distress. Head/Face: Normocephalic, atraumatic. ENT: Moist Mucous membranes Cardiovascular: Regular rate Respiratory: Respirations even and unlabored. No increased work of breathing. Talking in full sentences Skin: Warm, dry with normal turgor. Normal color. Neuro: Awake and alert, GCS 15, oriented to person, place, time, and situation. 14:01 Musculoskeletal/extremity: Extremities: grossly normal except: noted in the anterior aspect of left shoulder: decreased ROM, pain, ROM: limited active range of motion, Circulation is intact in all extremities. Sensation intact. Vital Signs: 14:03 BP 128 / 66; Pulse 85; Resp 17; Temp 97.6; Pulse Ox 98% ; Weight 81.65 kg; Height 5 ft. ll1 2 in. ; 14:03 Body Mass Index 32.92 (81.65 kg, 157.48 cm) ll1 MDM: 13:55 Medical Screening Exam initiated kb 14:02 Differential diagnosis: dislocation, closed fracture, contusion. Data reviewed: vital kb signs, nurses notes. Test considered but Not performed: X-ray: xray of shoulder considered but was done on 06/08 and reviewed. Counseling: I had a detailed discussion with the patient and/or guardian regarding the historical points, exam findings, and any diagnostic results supporting the discharge/admit diagnosis, the need for outpatient follow up, a family practitioner, to return to the emergency department if symptoms worsen or persist or if there are any questions or concerns that arise at home. Administered Medications: 14:09 Drug: Ondansetron Oral Disintegrating Tablet Oral Disintegrating Tablet 4 mg PO once ll1 Route: PO; 14:09 Follow up: Response: No adverse reaction ll1 14:09 Drug: traMADol PO 50 mg PO once Route: PO; ll1 14:09 Follow up: Response: No adverse reaction ll1 Disposition: 18:29 Co-signature as Attending Physician, Jason Still MD I reviewed the patient's care rn provided by the Advanced Practice Provider and agree with the diagnosis and treatment plan. Disposition Summary: 06/25/25 14:04 Discharge Ordered Notes: Location: Home kb Condition: Stable kb Diagnosis - Pain in left shoulder kb Followup: kb - With: Emergency Department - When: As needed - Reason: Worsening of condition Followup: kb - With: Private Physician - When: 2 - 3 days - Reason: Recheck today's complaints, Continuance of care, Re-evaluation by your physician Discharge Instructions: - Discharge Summary Sheet kb - Musculoskeletal Pain kb - Shoulder Pain, Olaz-bg-Hhys kb Forms: - Medication Reconciliation Form kb - Antibiotic Education kb - Prescription Opioid Use kb - Patient Portal Instructions kb - Leadership Thank You Letter kb Prescriptions: - ondansetron 4 mg Oral Tablet,disintegrating - take 1 tablet ORAL route every 6 hours as needed for nausea and vomiting; 12 kb tablet; Refills: 0, Product Selection Permitted Signatures: Brea Infante FNP-C FNP-Ckb Nieto, Roman, MD MD rn Lewis, Lynsay, RN RN ll1
--- NOTE | 2025-06-25 14:05 | ER ---
Nurse's Notes [facility] Name: Vianca Casey Age: 54 yrs Sex: Female : 1970 Arrival Date: 06/25/2025 Time: 13:51 Bed IW1 Private MD: Diagnosis: Pain in left shoulder Presentation: 06/25 14:03 Chief complaint: Patient states: Broke arm 8/9. Out of pain meds and needs nausea meds ll1 now. Coronavirus screen: Client denies travel out of the [place] in the last 14 days. At this time, the client does not indicate any symptoms associated with coronavirus-19. Ebola Screen: Patient denies travel to an Ebola-affected area in the 21 days before illness onset. Initial Sepsis Screen: Does the patient meet any 2 criteria? No. Patient's initial sepsis screen is negative. Does the patient have a suspected source of infection? No. Patient's initial sepsis screen is negative. Risk Assessment: Do you want to hurt yourself or someone else? Patient reports no desire to harm self or others. Onset of symptoms was June 08, 2025. 14:03 Method Of Arrival: Ambulatory ll1 14:03 Acuity: MARY 4 ll1 Triage Assessment: 14:03 General: Appears uncomfortable, Behavior is calm, cooperative, appropriate for age. ll1 Pain: Complains of pain in left arm. Musculoskeletal: Circulation, motion, and sensation intact. Capillary refill < 3 seconds, in left fingers. Reports pain in left arm. 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 - Infectious Disease History:: Denies. - Social history:: Smoking status: Patient denies any tobacco usage or history of. Screenin:10 [facility] ED Fall Risk Assessment (Adult) History of falling in the last 3 months, ll1 including since admission No falls in past 3 months (0 pts) Confusion or Disorientation No (0 pts) Intoxicated or Sedated No (0 pts) Impaired Gait No (0 pts) Mobility Assist Device Used No (0 pt) Altered Elimination No (0 pt) Score/Fall Risk Level 0 - 2 = Low Risk Maintained a safe environment, Hourly rounding (assess needs \T\ fall precautionary measures) done. Abuse screen: Denies threats or abuse. Nutritional screening: No deficits noted. Tuberculosis screening: No symptoms or risk factors identified. Assessment: 14:11 Reassessment: No changes from previously documented assessment. Patient and/or family ll1 updated on plan of care and expected duration. Pain level reassessed. Vital Signs: 14:03 BP 128 / 66; Pulse 85; Resp 17; Temp 97.6; Pulse Ox 98% ; Weight 81.65 kg; Height 5 ft. ll1 2 in. ; 14:03 Body Mass Index 32.92 (81.65 kg, 157.48 cm) ll1 ED Course: 13:55 Patient arrived in ED. al6 13:55 Brea Infante FNP-C is [facility]. kb 13:55 Jason Still MD is Attending Physician. kb 14:03 Patient has correct armband on for positive identification. Provided Education on: ER ll1 procedures and process. 14:04 Triage completed. ll1 14:10 No provider procedures requiring assistance completed. Patient did not have IV access ll1 during this emergency room visit. 14:11 Patient placed in a wheelchair. ll1 Administered Medications: 14:09 Drug: Ondansetron Oral Disintegrating Tablet Oral Disintegrating Tablet 4 mg PO once ll1 Route: PO; 14:09 Follow up: Response: No adverse reaction ll1 14:09 Drug: traMADol PO 50 mg PO once Route: PO; ll1 14:09 Follow up: Response: No adverse reaction ll1 Medication: 14:11 VIS not applicable for this client. ll1 Outcome: 14:04 Discharge ordered by . kb 14:11 Discharged to home ambulatory, ll1 14:11 Condition: stable 14:11 Discharge instructions given to patient, Instructed on discharge instructions, follow up and referral plans. medication usage, Demonstrated understanding of instructions, follow-up care, medications, Prescriptions given X 1, 14:12 Patient left the ED. ll1 Signatures: Brea Infante FNP-C FNP-Ckb Lewis, Lynsay, RN RN ll1 Radha Albarran al6
--- OUTSIDE RECORDS SUMMARY | 2025-06-25 14:09 | XMS REPORT | Continuity of Care Document ---
Author Name Unknown Address [address] [facility] [address] [place] [address] [facility] [place] Address [address] [facility] 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 Role Phone Anjana LEES, [facility] Primary Care Physician LUH HERRERA Attending Clinician Unavailab DENVER Lamb Attending Clinician UnavailSORIN Gonzales Attending Clinician JASMIN Prescott Attending Clinician IHSAN Dave Attending Clinician ANGIE Herzog Attending Clinician Unavailab MAGDALENA Gramajo Attending Clinician Unavailable CHARLIE RACHEL Attending Clinician UnavailSharonda Ibarra Attending Clinician UnavailBAIRON Eng Attending Clinician Unavailomar Hansen MD, Bairon Attending Clinician Unavailable NIK VALDIVIA Attending Clinician Unavailable Shaquille ACOSTA, Zainab Nelson Attending Clinician Unavailab YASMINE Salas Attending Clinician Unavailomar Cline MD, Yasmine Attending Clinician + BILLY NEWBERRY Attending Clinician Unavaila Nithya Valdez Attending Clinician Unavailab Addis Myers Attending Clinician Unavailable Alexi Bhakta Attending Clinician Unavailable LANCE HATCH Attending Clinician Unavail able Mamie LEES, Lance Dumont Attending Clinician + [phone] Salty LEES, Michelle Attending Clinician [phone] MICHELLE POND Attending Clinician Unavaila farnaz López RN, Felipa Attending Clinician Unavailable Eugenia LEES, Luh Clifton Attending Clinician [phone] Adam LEES, Jong Attending Clinician [phone] Paxton Quach MD Attending Clinician [phone] PAXTON QUACH Attending Clinician UnavailSONDRA Fung Attending Clinician Unavailable Usha Shields MD Attending Clinician [phone] Flavio Nieves MD Attending Clinician +[phone] Rekha Russell MD Attending Clinician + [phone] Asher LEES, Sondra Attending Clinician +[phone] FLAVIO NIEVES Attending Clinician Unavailable USHA SHIELDS Attending Clinician Unavailable DONNA SADLER Attending Clinician Kaushal Sadler MD, Donna Olea Attending Clinician + [phone] Windy Lay MD Attending Clinician [phone] Fermín Null MD Attending Clinician +[phone] Denver Ambriz MD Attending Clinician [phone] JENNIFER JEREZ Attending Clinician Unavailable Shanell Leo Attending Clinician Unavailable Dieter Melendez MD Attending Clinician [phone] Nick Ross RN Attending Clinician Unavaila farnaz Provider, Not In System Attending Clinician UnaLYNN Norman Attending Clinician Unavailomar Farmer MD, Thea Attending Clinician [phone] Jann LEES, Peewee Attending Clinician [phone] Wagner LEES, Lynn Flowers Attending Clinician +[phone] Laureen Infante Attending Clinician Unavailable Debbie LEES, Eva Attending Clinician [phone] Kip Flanagan CRNA Attending Clinician +[phone] Ellie LEES, Angie Ba Attending Clinician +[phone] Vicki NON FERROUS MATERIAL HANDLER, Mariel Attending Clinician [phone] Diane ACOSTA, Maritza Cole Attending Clinician Unavailable LINCOLN RODRIGUEZ Attending Clinician U navailJamil Barnes DO Attending Clinician + [phone] Chanell Michael Attending Clinician [phone] Jennifer LEES, Lincoln Attending Clinician [phone] JAMIL FRITZ Attending Clinician Unavaila GUSTABO Huitron Attending Clinician Unavailable Taylor LEES, Gustabo Cole Attending Clinician +[phone] Yovani Culver DO Attending Clinician +[phone] YOVANI CULVER Attending Clinician Unavailable Pastora Coe Attending Clinician Unavailable Aaron Weinberg MD Attending Clinician [phone] Attending Clinician Unavailable Roland Wakefield LCSW Attending Clinician Chelsea Crespo Attending Clinician Unavailable AARON WEINBERG ABA Attending Clinician Unava ilevelyn Regan RN, Nohemy Attending Clinicia n Unavailable Keyonna Be Attending Clinician Unavailable Chidi EMERSON, Sorin Falcon Attending Clinician [phone] DAGO CASILLAS Attending Clinician Unavailable Sonja LEES, Dago Attending Clinician [phone] CHANELL MICHAEL Attending Clinician Unav ailable MARIBETH FRIEDMAN Attending Clinician Unavailable Maribeth Friedman DO Attending Clinician +[phone] Jasmin Anthony MD Attending Clinicia n Hilda LEES, Greta Mitchell Attending Clinician Delia vailable GRETA RENTERIA Attending Clinician Delia vailable Rafael CURRYP, Line K Attending Clinician [phone] RIOS LUCERO Attending Clinician Unava ilable LAM, DWAYNE LUGO Attending Clinician Unavail able Lam LEES, Dwayne Attending Clinician [phone] Sean LEES, Magdalena Attending Clinician +[phone] Florentino LEES, Damir Attending Clinician +[phone] Claritza LEES, Dara Gallo Attending Clinician +[phone] Ihsan Yu MD Attending Clinician +[phone] Ajay LEES, Fabio Gaytan Attending Clinician [phone] Freddie March MD Attending Clinician [phone] Doctor Unassigned, [place] Attending Clinician U navailable FLAKITO CAIN Attending Clinician Unavailable Neurology Attending Clinician Unavailable GORDY RANDOLPH Attending Clinician Unavailable Tamy Verde Attending Clinician [phone] TAMY MORALES Attending Clinician Unavailable ZEB DE LEON Attending Clinician Un available BRITTANIE ZEPEDA Attending Clinician Unavailomar LAKHANI MD Attending Clinician Unavailab JONNA Brady Attending Clinician Unavail able JONG DICKENS Admitting Clinician Unavailable DENVER AMBRIZ Admitting Clinician UnavailJASMIN Locke Admitting Clinician U navailable MAGDALENA CORDOBA Admitting Clinician Unavailable FLAVIO NIEVES Admitting Clinician Unavailable WINDY LAY Admitting Clinician Unavailab PEEWEE Wynn Admitting Clinician Unavailable BAIRON HANSEN Admitting Clinician Unavailomar e CHANELL MICHAEL Admitting Clinician Unav ailable GUSTABO VAZQUEZ Admitting Clinician Unavailable GORDY RANDOLPH Admitting Clinician Unavailable TAMY MORALES Admitting Clinician Unavailable ZEB DE LEON Admitting Clinician Un available Payers Payer Name Policy Type Policy Number Effective Date Expirati on Date Source [employer] EXCHANGE [id number] 2024 00:00:00 [employer] EXCHANGE [id number] 2024 00:00:00 [employer] 94 [id number] 2024 00:00:00 Problems Condition Name Condition Details Condition Category Status Onset Date Resolution Date Last Treatment Date Treating Clinician Comments Source Vomiting Vomiting Disease Active - 00:00: 00 [facility] Intractabl e nausea and vomiting Intractabl e nausea and vomiting Disease Active 04-10 00:00: 00 [facility] Nausea and vomiting, unspecifie d vomiting type Nausea and vomiting, unspecifie d vomiting type Disease Active 08 00:00: 00 [facility] Other chronic pancreatit is Other chronic pancreatit is Disease Recurre nce 5-07 00:00: 00 [facility] Abdominal pain, generalize d Abdominal pain, generalize d Disease Active 5-07 00:00: 00 [facility] RUQ abdominal pain RUQ abdominal pain Disease Active 4-18 00:00: 00 [facility] Encounter for pre-transp lant evaluation for liver transplant Encounter for pre-transp lant evaluation for liver transplant Disease Active 4-10 00:00: 00 [facility] Encounter for pre-transp lant evaluation for chronic liver disease Encounter for pre-transp lant evaluation for chronic liver disease Disease Active 3-26 00:00: 00 [facility] Abdominal pain, unspecifie d abdominal location Abdominal pain, unspecifie d abdominal location Disease Active 2-26 00:00: 00 [facility] Alcohol use disorder Alcohol use disorder Disease Active 2-18 00:00: 00 [facility] Portal hypertensi on Portal hypertensi on Disease Recurre wye 2-18 00:00: 00 [facility] Alcoholic hepatitis Alcoholic hepatitis Disease Recurre nce 2-18 00:00: 00 [facility] Abnormal liver enzymes Abnormal liver enzymes Disease Active 2025-0 2-18 00:00: 00 [facility] Other ascites Other ascites Disease Active 2-18 00:00: 00 [facility] Alcohol use disorder Alcohol use disorder Disease Active 218 00:00: 00 [facility] Hyperbilir ubinemia Hyperbilir ubinemia Disease Active 218 00:00: 00 [facility] Cirrhosis Cirrhosis Disease Recurre nce 208 00:00: 00 [facility] Jaundice Jaundice Disease Active 208 00:00: 00 [facility] Liver masses Liver masses Disease Active 208 00:00: 00 [facility] Abdominal pain Abdominal pain Disease Active 2 00:00: 00 [facility] Obesity Obesity Disease Active 01-02 00:00: 00 Jennifer Seybold - Externa l Exposure to second hand tobacco smoke Exposure to second hand tobacco smoke Disease Active 01-02 00:00: 00 [facility] Family history of esophageal cancer Family history of esophageal cancer Disease Active 01-02 00:00: 00 [facility] History of pneumonia History of pneumonia Disease Active 01-02 00:00: 00 [facility] Iron deficiency anemia Iron deficiency anemia Disease Active 01-02 00:00: 00 [facility] Obesity (BMI 30-39.9) Obesity (BMI 30-39.9) Disease Active 01-04 00:00: 00 [facility] Numbness of arm Numbness of arm Disease Active 03-21 00:00: 00 [facility] Headache Headache Disease Active 03-21 00:00: 00 Overview: Formattin g of this note might be different from the original. 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 Economic History Utility [facility] Depression Depression Disease Recurre nce 03-21 00:00: 00 [facility] Seizure disorder Seizure disorder Disease Recurre wye [facility] CVA (cerebral vascular accident) CVA (cerebral vascular accident) Disease Recurre nce [facility] Allergies, Adverse Reactions, Alerts Allergy Name Allergy Type Status Severity Reaction(s) Onset Date Inactive Date Treating Clinician Comments Source Sulfa Antibiot ics Propensi ty to adverse reaction s Active Other 12-08 00:00: 00 Doesn't know [facility] SULFA (SULFONA MIDE ANTIBIOT ICS) Allergy Active Other 12-08 00:00: 00 [facility] Sulfa (Sulfona mide Antibiot ics) Propensi ty to adverse reaction s Active Other (See Comments) 12-08 00:00: 00 Doesn't know [facility] NO KNOWN ALLERGIE S Allergy Active [facility] NO KNOWN ALLERGIE S Drug Class Active [facility] Family History Family Member Diagnosis Comments Start Date Stop Date Sourc e Natural father Cancer [facility] Natural mother Asthma [facility] Natural mother Diabetes [facility] Social History Social Habit Start Date Stop Date Quantity Comments Source Sexual orientation 2025-06-19 12:23:21 Heterosexual (finding) [facility] ASSERTION Possible [facility] Sex 2025-06-07 01:21:25 2025-06-07 01:21:25 Female (finding) [facility] Alcoholic beverage intake 2025-03-04 00:00:00 2025-03-04 00:00:00 Ex-drinker (finding) [facility] Alcohol Comment 2025-02-26 00:00:00 2025-02-26 00:00:00 none since 2023 [facility] Tobacco use and exposure 2024-12-08 00:00:00 2024-12-08 00:00:00 Smokeless tobacco non-user [facility] History of Social function 2024-05-15 00:00:00 2024-05-15 00:00:00 [facility] Alcohol intake 2024-01-03 00:00:00 2024-01-03 00:00:00 Current drinker of alcohol (finding) Jennifer Florez - External Education - What is the highest level of school you have completed or the highest degree you have received? 2024-01-03 00:00:00 2024-01-03 00:00:00 Associate degree: occupational, technical, or vocational program Jennifer Vikki - External Sex assigned at 1970 00:00:00 1970 00:00:00 F [facility] Smoking Status Start Date Stop Date Source Tobacco smoking consumption unknown [facility] Never smoked tobacco [facility] Medications Ordered Medication Name Filled Medication Name Start Date Stop Date Current Medication? Ordering Clinician Indication Dosage Frequency Signature (SIG) Comments Components Source mupirocin 2 % topical ointment 06-24 00:00: 00 Yes 1% Arun [place] pantoprazol e (PROTONIX) 40 MG tablet 05-16 00:00: 00 06-15 23:59 :00 No 40mg Take 1 tablet (40 mg total) by mouth Daily (0600) for 30 days. [facility] ondansetron (ZOFRAN) 4 MG tablet 05-16 00:00: 00 05-23 23:59 :00 No Nausea 4mg Take 1 tablet (4 mg total) by mouth every 8 (eight) hours as needed for up to 7 days. [facility] sucralfate (CARAFATE) 1 gram tablet 05-16 00:00: 00 05-18 23:59 :00 No 1g Q.25D Take 1 tablet (1 g total) by mouth 4 (four) times daily for 2 days. [facility] traMADoL (ULTRAM) 50 mg tablet 05-16 00:00: 00 05-14 23:59 :00 Yes 50mg Take 1 tablet (50 mg total) by mouth every 6 (six) hours as needed for pain for up to 8 doses. Max Daily Amount: 200 mg [facility] rifAXIMin (Xifaxan) 550 mg 05-14 00:00: 00 Yes Hepatic encephalopa thy (HCC) 550mg Q.5D Take 1 tablet (550 mg total) by mouth 2 (two) times daily. [facility] lactulose (CHRONULAC) 10 gram/15 mL solution 04-24 00:00: 00 04-24 00:00 :00 Yes Hepatic encephalopa thy (HCC) 20g Q.[id number] 3D Take 30 mLs (20 g total) by mouth 3 (three) times daily. [facility] thiamine 100 MG tablet 04-13 00:00: 00 04-13 23:59 :00 Yes 100mg QD Take 1 tablet (100 mg total) by mouth daily. [facility] furosemide (LASIX) 20 MG tablet 04-12 00:00: 00 04-12 23:59 :00 Yes 20mg QD Take 1 tablet (20 mg total) by mouth 2 (two) times daily. [facility] levETIRAcet am (KEPPRA) 250 MG tablet 04-12 00:00: 00 04-12 23:59 :00 Yes 250mg Q.5D Take 1 tablet (250 mg total) by mouth 2 (two) times daily Look-ali ke/Sound-a like medication . [facility] sennosides (SENOKOT) 8.6 mg tablet 04-12 00:00: 00 04-12 23:59 :00 Yes 8.6mg Take 1 tablet (8.6 mg total) by mouth every night as needed for constipati on. [facility] acetaminoph en (TYLENOL) 325 MG tablet 04-12 00:00: 00 04-07 23:59 :00 Yes 325mg Take 1 tablet (325 mg total) by mouth every 4 (four) hours as needed for up to 360 days. [facility] diphenhydrA MINE (BENADRYL) 25 mg capsule 04-12 00:00: 00 04-22 23:59 :00 No 25mg Take 1 capsule (25 mg total) by mouth every 6 (six) hours as needed for itching for up to 10 days. [facility] docusate sodium (COLACE) 100 MG capsule 04-12 00:00: 00 04-22 23:59 :00 No 100mg Q.5D Take 1 capsule (100 mg total) by mouth 2 (two) times daily for 10 days. [facility] promethazin e (PHENERGAN) 12.5 MG tablet 04-12 00:00: 00 04-19 23:59 :00 No 12.5mg Take 1 tablet (12.5 mg total) by mouth every 6 (six) hours as needed for nausea or vomiting for up to 7 days. [facility] gabapentin 100 mg capsule 03-18 00:00: 00 Yes 2mg [facility] [place] cholecalcif pratibha, vitamin D3, 50 mcg (2,000 unit) cap 03-12 12:18: 42 Yes 2000U QD Take 1 capsule (2,000 Units total) by mouth daily. [facility] zinc gluconate 50 mg tablet 03-12 12:18: 42 Yes 50mg QD Take 1 tablet (50 mg total) by mouth daily. [facility] ondansetron (ZOFRAN) 4 MG tablet 03-12 00:00: 00 Yes Nausea 4mg Take 1 tablet (4 mg total) by mouth 2 (two) times daily as needed for nausea or vomiting. [facility] Multiple Vitamins-Mi nerals (ZINC PO) 03-04 17:00: 45 03-04 00:00 :00 No Take by mouth. [facility] levETIRAcet am (Keppra) 250 MG tablet 03-04 15:57: 29 Yes 500mg QD Take 500 mg by mouth 1 (one) time each day. [facility] lactulose (Enulose) 10 GM/15ML solution oral solution 03-04 15:56: 22 Yes 30mL Q.[id number] 3D Take 30 mL by mouth in the morning and 30 mL at noon and 30 mL in the evening. [facility] polyethylen e glycol (GoLYTELY) 236-22.74-6 .74 -5.86 gram solution 25 00:00: 00 03-31 00:00 :00 No Colon cancer screening Day before colonoscop y at 6PM: Drink 2 L of Golytely over 2 hrs. 4 hrs before you leave for colonoscop y: Drink remaining 2L over 1.5 hrs. [facility] HYDROcodone -acetaminop hen (NORCO) 5-325 mg per tablet 02-16 00:00: 00 02-21 23:59 :00 No 1{tbl} Take 1 tablet by mouth every 6 (six) hours as needed for pain for up to 5 days. Max Daily Amount: 4 tablets [facility] ondansetron (ZOFRAN-ODT ) 4 MG disintegrat ing tablet 02-16 00:00: 00 02-21 23:59 :00 No 4mg Take 1 tablet (4 mg total) by mouth every 6 (six) hours as needed for nausea or vomiting for up to 5 days. [facility] ergocalcife rol (Vitamin D2) 1,250 mcg (50,000 unit) capsule 02-12 00:00: 00 Yes Low vitamin D level [id number] Take 1 capsule (50,000 Units total) by mouth every 7 days. [facility] potassium chloride (KLOR-CON) 20 mEq CR tablet 01-03 00:00: 00 Yes 40meq QD Take 2 tablets (40 mEq total) by mouth daily. [facility] potassium chloride ER 20 mEq tablet,exte nded release 01-03 00:00: 00 Yes 2mEq [facility] [place] gabapentin 100 mg capsule - 00:00: 00 Yes 2mg [facility] [place] levETIRAcet am (KEPPRA) 500 MG tablet 12-28 11:08: 17 03-31 00:00 :00 No 250mg Q.5D Take 0.5 tablets (250 mg total) by mouth 2 (two) times daily Look-ali ke/Sound-a like medication . [facility] lactulose (CHRONULAC) 20 gram/30 mL soln solution - 00:00: 00 01-25 23:59 :00 No 20g Q.[id number] 3D Take 30 mLs (20 g total) by mouth 3 (three) times daily for 30 days. [facility] ondansetron HCl 8 mg tablet - 00:00: 00 Yes 1mg [facility] [place] furosemide (Lasix) 20 MG tablet 12-13 00:00: 00 12-14 05:59 :00 No 20mg QD Take 20 mg by mouth 1 (one) time each day. 20 mg AM, 10 mg PM [facility] folic acid (FOLVITE) 1 MG tablet 12-13 00:00: 00 12-13 23:59 :00 No 1mg QD Take 1 tablet (1 mg total) by mouth daily. [facility] spironolact one (ALDACTONE) 50 MG tablet 12-13 00:00: 00 12-13 23:59 :00 No 50mg QD Take 1 tablet (50 mg total) by mouth daily. [facility] thiamine (B-1) 100 mg/mL injection 12-13 00:00: 00 12-21 00:00 :00 No 100mg QD Infuse 1 mL (100 mg total) into a venous catheter daily. [facility] promethazin e (PHENERGAN) 25 MG tablet 11-21 00:00: 00 12-28 00:00 :00 No 25mg Take 1 tablet (25 mg total) by mouth every 6 (six) hours as needed. [facility] ondansetron HCl 8 mg tablet 11-06 00:00: 00 Yes 1mg [facility] [place] ondansetron (ZOFRAN) 8 MG tablet 11-06 00:00: 00 12-21 00:00 :00 No 8mg Take 1 tablet (8 mg total) by mouth every 8 (eight) hours as needed. [facility] phenazopyri dine 200 mg tablet 2023-10 00:00: 00 Yes 1mg [facility] [place] nitrofurant oin monohydrate /macrocryst als 100 mg capsule 2023-10 00:00: 00 Yes 1mg [facility] [place] Keppra 1,000 mg tablet 07-19 00:00: 00 Yes 1mg [facility] [place] albuterol sulfate HFA 90 mcg/actuati on aerosol inhaler 07-19 00:00: 00 Yes 12mcg/a lavon Mora Lan ondansetron (ZOFRAN (PF)) injection 4 mg 07-10 21:00: 00 07-10 21:25 :00 No 4mg 4 mg, Slow IV Push, ONCE, 1 dose, On Tue07/10/24 at 1600, LIZETH [facility] morpHINE (4 mg/mL) injection 4 mg 07-10 21:00: 00 07-10 21:26 :00 No 4mg 4 mg, Slow IV Push, ONCE, 1 dose, On Tue07/10/24 at 1600, STAT [facility] lidocaine 5 % (700 mg/patch) patch 07-10 00:00: 00 Yes [id number] Apply one patch to most painful area up to 12 hours a day as needed for pain. PHARMACIST : dispense one box [facility] traMADoL 50 mg tablet 07-10 00:00: 00 Yes [id number] 50mg Take 1 tablet by mouth every 6 (six) hours as needed (pain). Indication s: acute pain [facility] predniSONE 20 mg tablet 07-10 00:00: 00 07-18 04:59 :00 No [id number] 40mg Take 2 tablets by mouth in the morning for 7 days. [facility] ondansetron (ZOFRAN (PF)) injection 4 mg 05-28 01:00: 00 05-28 01:18 :00 No 4mg 4 mg, Slow IV Push, ONCE, 1 dose, On Tue05/27/24 at 2000, LIZETH [facility] aspirin tablet 325 mg 05-28 00:45: 00 05-28 01:18 :00 No 325mg 325 mg, Oral, ONCE, 1 dose, On Tue05/27/24 at 1945, STAT [facility] sodium chloride (NS) injection 5 mL 05-28 00:34: 46 Yes 5mL 5 mL, Intravenou s, PRN, Starting on Tue05/27/24 at 1934, Until Discontinu ed, Routine, IV line flushing [facility] gabapentin 100 mg capsule 05-24 00:00: 00 Yes 2mg [facility]un [place] gabapentin (NEURONTIN) 100 MG capsule 05-24 00:00: 00 Yes 100mg Take 1 capsule (100 mg total) by mouth 2 (two) times daily as needed. [facility] cetirizine (ZyrTEC) 10 MG tablet 05-16 14:45: 13 03-04 00:00 :00 No 10mg QD Take 10 mg by mouth 1 (one) time each day. [facility] albuterol 108 (90 Base) MCG/ACT inhaler 05-16 14:45: 12 Yes 2{puff} Inhale 2 puffs 4 (four) times a day if needed. [facility] Keppra 1,000 mg tablet 05-15 00:00: 00 Yes 1mg Arun [place] amoxicillin -clavulanat e (AUGMENTIN) 875-125 mg per tablet 1 tablet 05-05 04:15: 00 05-05 03:34 :00 No 1{tbl} 1 tablet, Oral, ONCE, 1 dose, On Tue05/04/24 at 2315, LIZETH, Reason for Anti-Infec tive: Documented Infection, Documented Infection Site: HEENT, Duration of Therapy: Once (ED) [facility] azithromyci n (ZITHROMAX) tablet 500 mg 05-05 03:30: 00 05-05 03:34 :00 No 500mg 500 mg, Oral, ONCE, 1 dose, On Tue05/04/24 at 2230, LIZETH, Reason for Anti-Infec tive: Documented Infection, Documented Infection Site: HEENT, Duration of Therapy: Once (ED) [facility] dexamethaso ne sod phos PF injection 10 mg 05-05 03:18: 00 05-05 03:34 :00 No 10mg 10 mg, Intramuscu lar, ONCE, 1 dose, On Tue05/04/24 at 2230, 1 mL [facility] amoxicillin -clavulanat e 875-125 mg per tablet 05-04 00:00: 00 05-12 04:59 :00 No [id number] 1{tbl} Take 1 tablet by mouth in the morning and 1 tablet in the evening. Do all this for 7 days. [facility] azithromyci n 250 mg tablet 05-04 00:00: 00 05-09 04:59 :00 No [id number] 250mg Take 1 tablet by mouth in the morning for 4 days. [facility] ferrous sulfate 325 mg (65 mg iron) EC tablet 04-22 00:00: 00 Yes 325mg Take 1 tablet by mouth in the morning. [facility] levETIRAcet am (Keppra) 1000 MG tablet 04-22 00:00: 00 Yes 1000mg Q.5D Take 1,000 mg by mouth in the morning and 1,000 mg in the evening. [facility] ferrous sulfate 325 (65 Fe) MG EC tablet 04-22 00:00: 00 Yes 1{tbl} Take 1 tablet by mouth every morning. [facility] Cetirizine (ZyrTEC Allergy) 10 MG oral Tablet 01-02 15:52: 28 Yes [id number] 10mg Take 1 tablet (10 mg total) by mouth daily. Jennifer man Amoxicillin -Pot Clavulanate 200-28.5 MG oral Chewable Tablet 01-02 15:35: 24 01-02 00:00 :00 No 1{tbl} Take 1 tablet by mouth 2 times daily. Jennifer man Ascorbic Acid (Vitamin C) 500 MG oral Tablet 01-02 15:35: 12 Yes [id number] 500mg Take 1 tablet (500 mg total) by mouth 2 times daily. Jennifer man Ferrous Sulfate (Iron) 325 (65 Fe) MG oral Tablet 01-02 15:34: 55 Yes [id number] 325mg Take 1 tablet (325 mg total) by mouth 2 times daily. [facility] man Albuterol HFA 108 (90 Base) MCG/ACT IN AERS 01-02 15:28: 47 Yes [id number] 2{puff} Q.25D Inhale 2 puffs into the lungs every 6 hours as needed for wheezing. Jennifer man pantoprazol e (ProtoNix) 40 MG EC tablet 01-02 00:00: 00 Yes 40mg Take 40 mg by mouth 1 (one) time each day before breakfast. [facility] PAROXETINE HCL 20 MG ORAL TAB 03-22 00:00: 00 Yes Take 1 tab PO daily [facility] ONDANSETRON HCL 4 MG ORAL TAB 03-22 00:00: 00 Yes Take 1 tab q8hPRN [facility] LORAZEPAM 1 MG ORAL TAB 03-22 00:00: 00 Yes Take 1 tab PO BIDPRN [facility] ESGIC-PLUS 50-500-40 MG ORAL CAP 03-22 00:00: 00 Yes Take 1 tab q4hPRN [facility] ASPIRIN 81 MG ORAL TAB 03-22 00:00: 00 Yes Take 1 tab PO daily [facility] Immunizations Ordered Immunization Name Filled Immunization Name Date Status Comments Source Hepatitis B 2025-03-17 00:00:00 Completed (Shingrix, Recombinant, Adjuvanted) Zoster Vaccine IM 2025-02-24 00:00:00 Completed [facility] Hepatitis B 2025-02-13 00:00:00 Completed INFLUENZA(FLULAVAL,F LUZONE,FLUARIX)_0.5m L(6MOS+)TRI([id number]) 2024-12-26 00:00:00 Completed [facility] Vital Signs Vital Name Observation Time Observation Value Comments S ource HEIGHT 2025-06-03 19:12:00 157.5 cm WEIGHT 2025-06-03 19:12:00 77.565 kg HEIGHT 2025-06-03 19:12:00 157.5 cm WEIGHT 2025-06-03 19:12:00 77.565 kg WEIGHT 2025-05-02 00:59:00 82.056 kg HEIGHT 2025-05-01 16:07:00 157.5 cm WEIGHT 2025-05-01 16:07:00 80.1 kg WEIGHT 2025-05-02 00:59:00 82.056 kg HEIGHT 2025-05-01 16:07:00 157.5 cm WEIGHT 2025-05-01 16:07:00 80.1 kg HEIGHT 2025-04-10 18:24:00 157.5 cm WEIGHT 2025-04-10 18:24:00 77.111 kg HEIGHT 2025-04-10 18:24:00 157.5 cm WEIGHT 2025-04-10 18:24:00 77.111 kg HEIGHT 2025-03-25 18:35:00 157.5 cm WEIGHT 2025-03-25 18:35:00 77.111 kg HEIGHT 2025-03-25 18:35:00 157.5 cm WEIGHT 2025-03-25 18:35:00 77.111 kg HEIGHT 2025-03-05 19:21:00 157.5 cm WEIGHT 2025-03-05 19:21:00 80.287 kg HEIGHT 2025-03-05 19:21:00 157.5 cm WEIGHT 2025-03-05 19:21:00 80.287 kg Systolic blood pressure 2025-03-04 20:47:00 121 mm[Hg] [facility] Diastolic blood pressure 2025-03-04 20:47:00 82 mm[Hg] [facility] Heart rate 2025-03-04 20:47:00 75 /min [facility] Body temperature 2025-03-04 20:47:00 36.61 Fabiana [facility] Body height 2025-03-04 20:47:00 157.5 cm [facility] Body weight 2025-03-04 20:47:00 81[facility]194 [facility] BMI 2025-03-04 20:47:00 32.74 kg/m2 [facility] HEIGHT 2025-02-14 18:50:00 157.5 cm WEIGHT 2025-02-14 18:50:00 76.658 kg HEIGHT 2025-02-14 18:50:00 157.5 cm WEIGHT 2025-02-14 18:50:00 76.658 kg HEIGHT 2025-01-29 19:23:00 157.5 cm WEIGHT 2025-01-29 19:23:00 79.379 kg HEIGHT 2025-01-29 19:23:00 157.5 cm WEIGHT 2025-01-29 19:23:00 79.379 kg HEIGHT 2024-12-26 08:53:00 157.5 cm WEIGHT 2024-12-26 08:53:00 88.2 kg HEIGHT 2024-12-25 16:29:00 157.5 cm WEIGHT 2024-12-25 16:29:00 90.719 kg HEIGHT 2024-12-26 08:53:00 157.5 cm WEIGHT 2024-12-26 08:53:00 88.2 kg HEIGHT 2024-12-25 16:29:00 157.5 cm WEIGHT 2024-12-25 16:29:00 90.719 kg HEIGHT 2024-12-18 08:15:00 157.5 cm WEIGHT 2024-12-18 08:15:00 93.622 kg HEIGHT 2024-12-18 08:15:00 157.5 cm WEIGHT 2024-12-18 08:15:00 93.622 kg WEIGHT 2024-12-08 16:30:00 94.2 kg HEIGHT 2024-12-08 16:30:00 154.9 cm WEIGHT 2024-12-08 16:30:00 94.2 kg HEIGHT 2024-12-08 16:30:00 154.9 cm Systolic blood pressure 2024-07-10 23:00:00 123 mm[Hg] [facility] Diastolic blood pressure 2024-07-10 23:00:00 73 mm[Hg] [facility] Heart rate 2024-07-10 23:00:00 72 /min [facility] 2024-07-10 23:00:[address] [facility] Respiratory rate 2024-07-10 23:00:00 16 /min [facility] Oxygen saturation in Arterial blood by Pulse oximetry 2024-07-10 23:00:00 97 /min [facility] Body height 2024-07-10 20:06:00 157.5 cm [facility] Body weight 2024-07-10 20:06:00 92.534 kg [facility] BMI 2024-07-10 20:06:00 37.31 kg/m2 [facility] Systolic blood pressure 2024-05-28 03:00:00 120 mm[Hg] [facility] Diastolic blood pressure 2024-05-28 03:00:00 76 mm[Hg] [facility] Heart rate 2024-05-28 03:00:00 79 /min [facility] Body temperature 2024-05-28 03:00:[address] [facility] Respiratory rate 2024-05-28 03:00:00 15 /min [facility] Oxygen saturation in Arterial blood by Pulse oximetry 2024-05-28 03:00:00 96 /min [facility] Body height 2024-05-28 00:36:00 154.9 cm [facility] Body weight 2024-05-28 00:36:00 92.534 kg [facility] BMI 2024-05-28 00:36:00 38.55 kg/m2 [facility] Systolic blood pressure 2024-05-05 03:38:07 139 mm[Hg] [facility] Diastolic blood pressure 2024-05-05 03:38:07 78 mm[Hg] [facility] Heart rate 2024-05-05 03:38:07 71 /min [facility] Body temperature 2024-05-05 03:38:[address] [facility] Respiratory rate 2024-05-05 03:38:07 15 /min [facility] Oxygen saturation in Arterial blood by Pulse oximetry 2024-05-05 03:38:07 99 /min [facility] Body height 2024-05-04 23:20:00 160 cm [facility] Body weight 2024-05-04 23:20:00 99.791 kg [facility] BMI 2024-05-04 23:20:00 38.97 kg/m2 [facility] Systolic blood pressure 2024-01-03 21:23:00 129 mm[Hg] Jennifer Bowen ld - External Diastolic blood pressure 2024-01-03 21:23:00 65 mm[Hg] Jennifer Seybo ld - External Heart rate 2024-01-03 21:23:00 96 /min Cain fletcher Seybold - External Body temperature 2024-01-03 21:23:00 37.67 Fabiana Jennifer Seybold - External Respiratory rate 2024-01-03 21:23:00 21 /min Jennifer Seybold - External Body height 2024-01-03 21:23:00 157.5 cm Nadine ey Seybold - External Body weight 2024-01-03 21:23:00 92.987 kg Nadine ey Seybold - External BMI 2024-01-03 21:23:00 37.49 kg/m2 Nadine cintron Seybold - External Oxygen saturation in Arterial blood by Pulse oximetry 2024-01-03 21:23:00 98 /min Jennifer Smitho ld - External Body Temperature 2025-06-24 13:54:00 98.00 degrees Arun [place] Heart Rate 2025-06-24 13:54:00 88.00 /min Amee en Abby [place] Respiratory Rate 2025-06-24 13:54:00 16.00 /min Aruncynthia [place] BP Systolic 2025-06-24 13:54:00 Step cynthia [place] BP Diastolic 2025-06-24 13:54:00 Giuseppe phen Abby [place] Weight Measured 2025-06-24 13:54:00 183.80 pounds Arun [place] Height Measured 2025-06-24 13:54:00 62.00 inches Arun [place] Systolic blood pressure 2025-06-04 02:19:00 136 mm[Hg] [facility] Diastolic blood pressure 2025-06-04 02:19:00 71 mm[Hg] [facility] Heart rate 2025-06-04 02:19:00 71 /min [facility] Body temperature 2025-06-04 02:19:00 36.67 Fabiana [facility] Respiratory rate 2025-06-04 02:19:00 16 /min [facility] Oxygen saturation in Arterial blood by Pulse oximetry 2025-06-04 02:19:00 98 /min [facility] Body height 2025-06-03 19:12:00 157.5 cm [facility] Body weight 2025-06-03 19:12:00 77.565 kg [facility] BMI 2025-06-03 19:12:00 31.28 kg/m2 [facility] BP Systolic 2025-03-18 10:39:00 111 mm[Hg] Shadi [place] BP Diastolic 2025-03-18 10:39:00 73 mm[Hg] Giuseppe [place] Weight Measured 2025-03-18 10:39:00 192.80 pounds Arun [place] Height Measured 2025-03-18 10:39:00 62.00 inches Arun [place] Body Temperature 2025-03-18 10:39:00 97.60 degrees Arun [place] Heart Rate 2025-03-18 10:39:00 69.00 /min Amee [place] Respiratory Rate 2025-03-18 10:39:00 16.00 /min Arun [place] Systolic blood pressure 2025-03-12 10:37:00 113 mm[Hg] [facility] Diastolic blood pressure 2025-03-12 10:37:00 75 mm[Hg] [facility] Heart rate 2025-03-12 10:37:00 68 /min [facility] Body temperature 2025-03-12 10:37:00 36.28 Fabiana [facility] Respiratory rate 2025-03-12 10:37:00 18 /min [facility] Body height 2025-03-12 10:37:00 157.5 cm [facility] Body weight 2025-03-12 10:37:00 81.511 kg [facility] BMI 2025-03-12 10:37:00 32.87 kg/m2 [facility] Oxygen saturation in Arterial blood by Pulse oximetry 2025-03-12 10:37:00 100 /min [facility] Systolic blood pressure 2025-02-28 13:20:00 112 mm[Hg] [facility] Diastolic blood pressure 2025-02-28 13:20:00 79 mm[Hg] [facility] Heart rate 2025-02-28 13:20:00 81 /min [facility] Body temperature 2025-02-28 13:20:00 36.5 Fabiana [facility] Respiratory rate 2025-02-28 13:20:00 16 /min [facility] Oxygen saturation in Arterial blood by Pulse oximetry 2025-02-28 13:20:00 99 /min [facility] Body height 2025-02-28 11:25:00 157.5 cm [facility] Body weight 2025-02-28 11:25:00 78.2 kg [facility] BMI 2025-02-28 11:25:00 31.53 kg/m2 [facility] BP Systolic 2025-01-03 14:37:00 131 mm[Hg] Shadi [place]en[place] BP Diastolic 2025-01-03 14:37:00 82 mm[Hg] Giuseppe [place]en[place]ro Weight Measured 2025-01-03 14:37:00 185.60 pounds Arun Montenegro Height Measured 2025-01-03 14:37:00 62.00 inches Arun [place]en[place] Body Temperature 2025-01-03 14:37:00 Arun [place]en[place] Heart Rate 2025-01-03 14:37:00 97.00 /min Amee [place]en[place] Respiratory Rate 2025-01-03 14:37:00 19.00 /min Arun [place] Systolic blood pressure 2024-12-28 07:46:00 135 mm[Hg] [facility] Diastolic blood pressure 2024-12-28 07:46:00 73 mm[Hg] [facility] Heart rate 2024-12-28 07:46:00 99 /min [facility] Body temperature 2024-12-28 07:46:00 36.78 Fabiana [facility] Respiratory rate 2024-12-28 07:46:00 18 /min [facility] Oxygen saturation in Arterial blood by Pulse oximetry 2024-12-28 07:46:00 96 /min [facility] Body height 2024-12-26 08:53:00 157.5 cm [facility] Body weight 2024-12-26 08:53:00 88.2 kg [facility] BMI 2024-12-26 08:53:00 35.56 kg/m2 [facility] BP Systolic 2024-11-06 15:36:00 91 mm[Hg] Step hen F Lan BP Diastolic 2024-11-06 15:36:00 49 mm[Hg] Giuseppe phen F Lan Weight Measured 2024-11-06 15:36:00 200.20 pounds Arun F Lan Height Measured 2024-11-06 15:36:00 62.00 inches Arun F Lan Body Temperature 2024-11-06 15:36:00 99.60 degrees Arun F Lan Heart Rate 2024-11-06 15:36:00 80.00 /min Amee en F Lan Respiratory Rate 2024-11-06 15:36:00 18.00 /min Arun F Lan BP Systolic 2024-08-30 14:05:00 148 mm[Hg] Step hen F Lan BP Diastolic 2024-08-30 14:05:00 79 mm[Hg] Giuseppe phen F Lan Weight Measured 2024-08-30 14:05:00 212.40 pounds Arun F Lan Height Measured 2024-08-30 14:05:00 62.00 inches Arun F Lan Body Temperature 2024-08-30 14:05:00 98.00 degrees Arun F Lan Heart Rate 2024-08-30 14:05:00 91.00 /min Amee en F Lan Respiratory Rate 2024-08-30 14:05:00 18.00 /min Arun F Lan BP Systolic 2024-07-19 11:29:00 143 mm[Hg] Step hen F Lan BP Diastolic 2024-07-19 11:29:00 85 mm[Hg] Giuseppe phen F Lan Weight Measured 2024-07-19 11:29:00 215.40 pounds Arun F Lan Height Measured 2024-07-19 11:29:00 62.00 inches Arun F Lan Body Temperature 2024-07-19 11:29:00 98.30 degrees Arun F Lan Heart Rate 2024-07-19 11:29:00 74.00 /min Amee en F Lan Respiratory Rate 2024-07-19 11:29:00 17.00 /min Arun F Lan Heart Rate 2024-05-24 16:10:00 82.00 /min Amee en F Lan Respiratory Rate 2024-05-24 16:10:00 16.00 /min Arun Abby [place] BP Systolic 2024-05-24 16:10:00 129 mm[Hg] Step hen F Lan BP Diastolic 2024-05-24 16:10:00 86 mm[Hg] Giuseppe phen F Lan Weight Measured 2024-05-24 16:10:00 204.80 pounds Arun [place]en[place] Height Measured 2024-05-24 16:10:00 62.00 inches Aruncynthia [place] Body Temperature 2024-05-24 16:10:00 98.70 degrees Arun [place] BP Systolic 2024-05-15 15:41:00 126 mm[Hg] Step hen F Lan BP Diastolic 2024-05-15 15:41:00 76 mm[Hg] Giuseppe phen F Lan Weight Measured 2024-05-15 15:41:00 206.00 pounds Arun [place] Height Measured 2024-05-15 15:41:00 62.00 inches Arun [place] Body Temperature 2024-05-15 15:41:00 98.20 degrees Arun [place]enegro Heart Rate 2024-05-15 15:41:00 74.00 /min Amee en F Lan Respiratory Rate 2024-05-15 15:41:00 18.00 /min Arun [place] Procedures Procedure Date / Time Performed Performing Clinician Source BILIRUBIN, DIRECT 2025-06-20 14:29:00 [facility] CBC W/PLT COUNT & AUTO DIFFERENTIAL 2025-06-20 14:29:00 [facility] COMPREHENSIVE METABOLIC PANEL 2025-06-20 14:29:00 [facility] PROTHROMBIN TIME/INR 2025-06-20 14:29:00 [facility] CBC W/PLT COUNT & AUTO DIFFERENTIAL 2025-06-20 14:29:00 [facility] HIGH SENSITIVITY TROPONIN I 2025-06-03 23:25:00 Senthil Garrison [facility] CT ABDOMEN/PELVIS WITHOUT IV CONTRAST 2025-06-03 22:52:24 Senthil Garrison [facility] ECG 12-LEAD 2025-06-03 20:30:14 Senthil Garrison [facility] ECG 12-LEAD 2025-06-03 20:30:14 Unknown, Hl7 Doctor C [facility] COMPREHENSIVE METABOLIC PANEL 2025-06-03 20:24:00 [facility] CBC W/PLT COUNT & AUTO DIFFERENTIAL 2025-06-03 20:24:00 [facility] HIGH SENSITIVITY TROPONIN I 2025-06-03 20:24:00 [facility] CBC W/PLT COUNT & AUTO DIFFERENTIAL 2025-06-03 20:24:00 [facility] XR CHEST 1 VIEW PORTABLE / BEDSIDE 2025-06-03 19:52:16 [facility] URINALYSIS W/ REFLEX URINE CULTURE 2025-06-03 19:20:00 [facility] EKG-SCANNED 2025-06-03 00:00:[address] Provider[address] [facility] CT ABDOMEN/PELVIS WITH IV CONTRAST 2025-05-15 23:26:00 Lance Hatch [facility] ED ECG INTERPRETATION 2025-05-15 22:51:18 Luis Hatch [facility] ECG 12-LEAD 2025-05-15 22:45:08 Mamie [facility] ECG 12-LEAD 2025-05-15 22:45:08 Unknown, Hl7 Doctor Douglas [facility] CBC W/PLT COUNT & AUTO DIFFERENTIAL 2025-05-15 22:31:00 Lance Hatch [facility] BASIC METABOLIC PANEL 2025-05-15 22:31:00 Luis Hatch [facility] HEPATIC FUNCTION PANEL 2025-05-15 22:31:00 Jarvis H[facility] LIPASE 2025-05-15 22:31:00 Mamie [facility] PROTHROMBIN TIME/INR 2025-05-15 22:31:00 Misty H[facility] HIGH SENSITIVITY TROPONIN I 2025-05-15 22:31:00 Mamie [facility] CBC W/PLT COUNT & AUTO DIFFERENTIAL 2025-05-15 22:31:00 SebasLance roach [facility] MAGNESIUM 2025-05-14 11:50:00 Salty [facility] ALPHA FETOPROTEIN (AFP), TUMOR MARKER 2025-05-14 11:50:00 Salty [facility] BILIRUBIN, DIRECT 2025-05-14 11:50:00 Salty [facility] CBC W/PLT COUNT & AUTO DIFFERENTIAL 2025-05-14 11:50:00 Salty [facility] COMPREHENSIVE METABOLIC PANEL 2025-05-14 11:50:00 Salty [facility] PROTHROMBIN TIME/INR 2025-05-14 11:50:00 Salty [facility] CBC W/PLT COUNT & AUTO DIFFERENTIAL 2025-05-14 11:50:00 Salty [facility] US ABDOMEN LIMITED 2025-05-03 09:24:57 Araceli Artis [facility] PHOSPHATIDYLETHANOL, BLOOD 2025-05-03 05:22:00 Nitin Isaacs [facility] IGG SUBCLASS-4 ONLY 2025-05-03 05:22:00 Denae Moss [facility] BASIC METABOLIC PANEL 2025-05-03 05:22:00 Martin Dickens [facility] CBC (HEMOGRAM ONLY) 2025-05-03 05:22:00 Maricarmen Dickens [facility] BASIC METABOLIC PANEL 2025-05-02 03:39:00 Sheila Herrera [facility] HEPATIC FUNCTION PANEL 2025-05-02 03:39:00 Gaby Herrera [facility] PROTHROMBIN TIME/INR 2025-05-02 03:39:00 Luh Herrera [facility] MAGNESIUM 2025-05-02 03:39:00 Luh Herrera [facility] CBC W/PLT COUNT & AUTO DIFFERENTIAL 2025-05-02 03:39[facility] & AUTO DIFFERENTIAL 2025-05-02 03:39:00 Luh Herrera [facility] US ABDOMEN LIMITED 2025-05-01 21:50:[address] [facility] CT ABDOMEN/PELVIS WITHOUT IV CONTRAST 2025-05-01 19:24:14 Jammie [facility] ECG 12-LEAD 2025-05-01 17:38:[address] [facility] ECG 12-LEAD 2025-05-01 17:38:23 Unknown, Hl7 Doctor C [facility] BLOOD CULTURE 2025-05-01 17:31:00 Jammie [facility] BLOOD CULTURE 2025-05-01 17:17:00 Jammie [facility] CBC W/PLT COUNT & AUTO DIFFERENTIAL 2025-05-01 17:17:00 Jammie [facility] LACTIC ACID, VENOUS 2025-05-01 17:17:00 Greg Cline [facility] PROTHROMBIN TIME/INR 2025-05-01 17:17:00 Jonathan Cline sa [facility] APTT 2025-05-01 17:17:[address] [facility] LIPASE 2025-05-01 17:17:[address] [facility] BASIC METABOLIC PANEL 2025-05-01 17:17:00 Durga Cline [facility] HEPATIC FUNCTION PANEL 2025-05-01 17:17:00 Morris Cline [facility] CBC W/PLT COUNT & AUTO DIFFERENTIAL 2025-05-01 17:17:00 Weldon [facility] URINALYSIS W/ REFLEX URINE CULTURE 2025-05-01 16:47:00 Weldon [facility] EKG-SCANNED 2025-05-01 00:00:00 Fuentes [facility] BASIC METABOLIC PANEL 2025-04-11 03:49:00 Flavio Nieves [facility] HEPATIC FUNCTION PANEL 2025-04-11 03:49:00 Nieves [facility] PROTHROMBIN TIME/INR 2025-04-11 03:49:00 Nieves, [facility] MAGNESIUM 2025-04-11 03:49:00 Nieves, [facility] PHOSPHORUS 2025-04-11 03:49:00 Nieves, [facility] CBC W/PLT COUNT & AUTO DIFFERENTIAL 2025-04-11 03:49:00 Nieves, [facility] CBC W/PLT COUNT & AUTO DIFFERENTIAL 2025-04-11 03:49:00 Nieves, [facility] CT BRAIN WITHOUT IV CONTRAST 2025-04-11 02:04:00 [facility] HIGH SENSITIVITY TROPONIN I 2025-04-11 01:33:00 [facility] ECG 12-LEAD 2025-04-11 01:31:[address] [facility] 12-[facility]AD 2025-04-11 01:31:05 Unknown, Hl7 Doctor C [facility] US ABDOMEN LIMITED 2025-04-10 22:18:00 Samuel Segura [facility] PROTHROMBIN TIME/INR 2025-04-10 18:56:00 [facility] 2025-04-10 [facility] AUTO DIFFERENTIAL 2025-04-10 18:41:00 Imelda [facility] COMPREHENSIVE METABOLIC PANEL 2025-04-10 18:41[facility]25-04[facility]10 [facility]:41[facility]00 [facility] W/ REFLEX URINE CULTURE 2025-04-10 18:41:00 [facility] BILIRUBIN, TOTAL AND DIRECT 2025-04-10 18:41:00 Peter [facility] CBC W/PLT COUNT & AUTO DIFFERENTIAL 2025-04-10 18:41:00 [facility] 2025-04-10 00:00:00 Fuentes [facility] CBC (HEMOGRAM ONLY) 2025-03-31 05:18:00 Fermín Null [facility] BASIC METABOLIC PANEL 2025-03-31 05:18:00 Jennifer [facility] CBC (HEMOGRAM ONLY) 2025-03-30 04:50:00 Fermín Null [facility] BASIC METABOLIC PANEL 2025-03-30 04:50:00 Jennifer, [facility] HEPATIC FUNCTION PANEL 2025-03-30 04:50:00 Triston Ambriz [facility] RESPIRATORY PANEL 2025-03-29 17:46:00 Kaity Fox [facility] LACTIC ACID, VENOUS 2025-03-29 17:43:00 Radha Ambriz [facility] BLOOD CULTURE 2025-03-29 12:12:00 Denver Ambriz I [facility] HEPATIC FUNCTION PANEL 2025-03-29 12:12:00 Triston Ambriz [facility] PROTHROMBIN TIME/INR 2025-03-29 12:12:00 Lucho Ambriz [facility] C-REACTIVE PROTEIN 2025-03-29 12:12:00 Denver Ambriz [facility] XR CHEST 1 VIEW PORTABLE / BEDSIDE 2025-03-29 11:15:00 Denver Ambriz [facility] CBC (HEMOGRAM ONLY) 2025-03-29 05:33:00 Fermín Null [facility] BASIC METABOLIC PANEL 2025-03-29 05:33:00 Jennifer [facility] MR ABDOMEN WITHOUT IV CONTRAST MRCP 2025-03-28 19:29:26 Denver Ambriz [facility] CBC (HEMOGRAM ONLY) 2025-03-28 06:55:00 Fermín Null [facility] BASIC METABOLIC PANEL 2025-03-28 06:55:00 Jnenifer [facility] PHOSPHATIDYLETHANOL, BLOOD 2025-03-27 06:10:00 P hamBraydon [facility] (HEMOGRAM ONLY) 2025-03-27 06:10:00 Jennifer Fermín C [facility] BASIC METABOLIC PANEL 2025-03-27 06:10:00 Jennifer [facility] HEPATIC FUNCTION PANEL 2025-03-27 06:10:[facility]LV[facility] IV CONTRAST 2025-03-26 16:50:00 Jennifer [facility] BASIC METABOLIC PANEL 2025-03-26 09:46:00 Ra mando Lay [facility] HEPATIC FUNCTION PANEL 2025-03-26 09:46:00 Kelsey Lay [facility] MAGNESIUM 2025-03-26 09:46:00 Windy Lay [facility] HEMOGLOBIN A1C 2025-03-26 04:42:00 Windy Lay [facility] PROTHROMBIN TIME/INR 2025-03-26 04:42:00 Angel Lay [facility] CBC W/PLT COUNT & AUTO DIFFERENTIAL 2025-03-26 04:42:00 Windy Lay [facility] CBC W/PLT COUNT & AUTO DIFFERENTIAL 2025-03-26 04:42:00 Windy Lay [facility] BLOOD CULTURE 2025-03-25 19:30:00 Donna Sadler [facility] LACTIC ACID, VENOUS 2025-03-25 19:30:00 Ajit Sadler [facility] US DOPPLER 2025-03-25 17:09:00 Donna Sadler [facility] US ABDOMEN COMPLETE 2025-03-25 17:09:00 Ajit Sadler [facility] URINALYSIS W/ REFLEX URINE CULTURE 2025-03-25 15:36:00 Donna Sadler [facility] CBC W/PLT COUNT & AUTO DIFFERENTIAL 2025-03-25 15:28:00 Donna Sadler [facility] LIPASE 2025-03-25 15:28:00 Donna Sadler [facility] PROTHROMBIN TIME/INR 2025-03-25 15:28:00 Yo Sadler Lefty [facility] BASIC METABOLIC PANEL 2025-03-25 15:28:00 Kourtney Sadler Lefty [facility] HEPATIC FUNCTION PANEL 2025-03-25 15:28:00 Janie Sadler Lefty [facility] CBC W/PLT COUNT & AUTO DIFFERENTIAL 2025-03-25 15:28:00 Donna Sadler [facility] AMYLASE 2025-03-12 13:11:00 Provider, No t In [facility] PHOSPHATIDYLETHANOL, BLOOD 2025-03-12 13:11:00 [facility] 2025-03-12 13:11:00 Cholankeril, Paul rge [facility] CBC W/PLT COUNT & AUTO DIFFERENTIAL 2025-03-12 13:11:00 [facility] COMPREHENSIVE METABOLIC PANEL 2025-03-12 13:11:00 Cholankeril, [facility] PROTHROMBIN TIME/INR 2025-03-12 13:11:00 Cholankeril, [facility] LIPASE 2025-03-12 13:11:00 JaMichelle celis [facility] NICOTINE METABOLITE SCREEN (QUEST) 2025-03-12 13:11:00 Provider, Not In [facility] DRUG MONITORING TEMPLATE 2025-03-12 13:11:00 Pro vider, Not In [facility] CBC W/PLT COUNT & AUTO DIFFERENTIAL 2025-03-12 13:11:00 Cholankeril, [facility] CBC W/PLT COUNT & AUTO DIFFERENTIAL 2025-03-07 08:01:00 Lynn Edward [facility] COMPREHENSIVE METABOLIC PANEL 2025-03-07 08:01:00 Lynn Edward [facility] CBC W/PLT COUNT & AUTO DIFFERENTIAL 2025-03-07 08:01:00 Lynn Edward [facility] CT ABDOMEN/PELVIS WITH IV CONTRAST 2025-03-05 23:52:46 Jana Justice [facility] URINALYSIS W/ REFLEX URINE CULTURE 2025-03-05 21:59[facility] 2025-03-05 19:29[facility] 2025-03-05 19:29:00 Elecor, [facility] LIPASE 2025-03-05 [facility]:29[facility] AUTO DIFFERENTIAL 2025-03-05 19:29:00 Elecor, [facility] CBC W/PLT COUNT & AUTO DIFFERENTIAL 2025-03-05 19:29:00 [facility] REPORT OF PROCEDURE - ENDOSCOPY URL 2025-02-28 13:02:50 Le [facility] REPORT OF PROCEDURE - ENDOSCOPY URL 2025-02-28 13:02:10 [facility] TISSUE EXAM 2025-02-28 12:23:00 Le [facility] [place] COLONOSCOPY W/BIOPSY SINGLE/MULTIPLE 2025-02-28 12:13:00 Le, [facility] EGD TRANSORAL BIOPSY SINGLE/MULTIPLE 2025-02-28 12:13:00 [facility] CT BRAIN WITHOUT IV CONTRAST 2025-02-26 15:02:00 Angie Argueta [facility] BASIC METABOLIC PANEL 2025-02-16 05:22:00 Rodriguez, [facility] CBC W/PLT COUNT & AUTO DIFFERENTIAL 2025-02-16 05:22:00 Rodriguez, [facility] HEPATIC FUNCTION PANEL 2025-02-16 05:22:00 RodriguezJennifer [facility] CBC W/PLT COUNT & AUTO DIFFERENTIAL 2025-02-16 05:22:00 Rodriguez, [facility] CBC W/PLT COUNT & AUTO DIFFERENTIAL 2025-02-15 05:04:00 Fernanda Adelfovirgilio Jasen [facility] COMPREHENSIVE METABOLIC PANEL 2025-02-15 05:04:00 Lenomejiaemelinajasen Vanedio Aggarwal [facility] MAGNESIUM 2025-02-15 05:04:00 LenomejiaBurton moran rgdio Jasen [facility] PHOSPHORUS 2025-02-15 05:04:00 Burton Michael rgdio Aggarwal [facility] [facility] TRIGLYCERIDES 2025-02-15 05:04:00 Fernanda N rgzivirgilio Jasen [facility] IGG SUBCLASS-4 ONLY 2025-02-15 05:04:00 Roni aggarwal Biafarrah Aggarwal [facility] CBC W/PLT COUNT & AUTO DIFFERENTIAL 2025-02-15 05:04:00 Chanell Michael [facility] CT ABDOMEN/PELVIS WITH IV CONTRAST 2025-02-14 21:25:00 Romelia [facility] URINALYSIS W/ REFLEX URINE CULTURE 2025-02-14 20:46:00 Romelia [facility] LACTIC ACID, VENOUS 2025-02-14 20:38:00 Oleg León [facility] PROTHROMBIN TIME/INR 2025-02-14 20:38:00 Hiro León [facility] LIPASE 2025-02-14 19:58:00 [facility] & AUTO DIFFERENTIAL 2025-02-14 19:58:00 Willie León [facility] COMPREHENSIVE METABOLIC PANEL 2025-02-14 19:58:00 Romelia [facility] PT/APTT 2025-02-14 19:58:00 Romelia [facility] CBC W/PLT COUNT & AUTO DIFFERENTIAL 2025-02-14 19:58:00 Willie León [facility] US ABDOMEN LIMITED 2025-02-14 19:18:00 Oluwadare, Willie [facility] BLOOD GAS, ARTERIAL 2025-02-13 14:24:00 Ellie Ris e [facility] URINALYSIS W/ REFLEX URINE CULTURE 2025-02-13 14:06:00 Angie Argueta [facility] MM DIGITAL MAMMO SCREEN WITH JOYCE BILATERAL 2025-02-13 13:18:48 Angie Argueta [facility] SC R & L HRT CATH WINJX HRT ART& L VENTR IMG 2025-02-07 09:28:00 Gustabo Vazquez [facility] ECG 12-LEAD 2025-02-07 08:40:13 Laquindanum, [facility] ECG 12-LEAD 2025-02-07 08:40:13 Unknown, [facility] TYPE AND SCREEN, AUTOMATED 2025-02-07 08:12:00 Laquind wayne, [facility] VASCULAR DIAGRAM -SCAN 2025-02-07 00:00:00 Provi chandana, Default Scanning [facility] CARDIAC CATH REPORT - SCAN 2025-02-07 00:00:00 P rovider, Default Scanning [facility] NM MYOCARDIAL PERFUSION SPECT, PHARM 2025-02-01 13:15:[address] [facility] CAROTID DOPPLER BILATERAL 2025-02-01 13:07:15 Angie Coppola [facility] ECG 12-LEAD 2025-02-01 12:30:31 Unknown, Hl7 [facility] ECG 12-LEAD 2025-02-01 12:30:31 Unknown, Hl7 [facility] ECG 12-LEAD 2025-02-01 10:11:00 Unknown, Hl7 [facility] ECG 12-LEAD 2025-02-01 10:11:00 Unknown, Hl7 [facility] ECG 12-LEAD 2025-02-01 10:10:47 Unknown, Hl7 [facility] ECG 12-LEAD 2025-02-01 10:10:47 Unknown, Hl7 [facility] TREADMILL TOLERANCE(NON-NUCLEAR TREADMILL) 2025-02-01 10:04:55 Unknown, Hl7 [facility] ECG 12-LEAD 2025-02-01 09:56:08 Unknown, Hl7 Doctor [facility] ECG 12-LEAD 2025-02-01 09:56:08 Unknown, Hl7 [facility] ECG 12-LEAD 2025-02-01 09:54:19 Angie Argueta [facility] ECG 12-LEAD 2025-02-01 09:54:19 Unknown, Hl7 [facility] ECHO W CONTRAST & DOPPLER 2025-02-01 09:20:48 Angie Coppola [facility] BLOOD GAS, ARTERIAL 2025-02-01 08:20:00 Jordan Argueta [facility] CT ABDOMEN/PELVIS WITH IV CONTRAST 2025-01-29 23:45:20 Raymundo [facility] CBC W/PLT COUNT & AUTO DIFFERENTIAL 2025-01-29 19:51:00 Raymundo [facility] COMPREHENSIVE METABOLIC PANEL 2025-01-29 19:51:00 Raymundo [facility] LIPASE 2025-01-29 19:51:00 Raymundo [facility] CBC W/PLT COUNT & AUTO DIFFERENTIAL 2025-01-29 19:51:00 [facility] URINALYSIS W/ REFLEX URINE CULTURE 2025-01-29 19:47:00 Raymundo [facility] XR DXA BONE DENSITY STUDY 2025-01-23 15:30:00 Angie Coppola [facility] XR CHEST 2 VIEWS 2025-01-23 14:49:[address] [facility] XR MANDIBLE 4 VIEWS MIN 2025-01-23 14:49:[address] [facility] ECG 12-LEAD 2025-01-23 11:37:25 Gustabo Vazquez [facility] ECG 12-LEAD 2025-01-23 11:37:25 Unknown, Hl7 [facility] FIBRINOGEN 2025-01-23 07:06:00 Angie Argueta [facility] COMPREHENSIVE METABOLIC PANEL 2025-01-23 07:06:[address] [facility] BILIRUBIN, DIRECT 2025-01-23 07:06:[address] [facility] GAMMA GLUTAMYL TRANSFERASE (GGT) 2025-01-23 07:06:[address] [facility] CALCIUM, IONIZED 2025-01-23 07:06:[address] [facility] MAGNESIUM 2025-01-23 07:06:[address] [facility] PHOSPHORUS 2025-01-23 07:06:[address] [facility] PROTHROMBIN TIME/INR 2025-01-23 07:06:00 Christi Argueta se [facility] APTT 2025-01-23 07:06:[address] [facility] CBC W/PLT COUNT & AUTO DIFFERENTIAL 2025-01-23 07:06:[address] [facility] TRANSFERRIN 2025-01-23 07:06:[address] [facility] VITAMIN D, 25-HYDROXY 2025-01-23 07:06:00 Kelsey Argueta [facility] LIPID PANEL 2025-01-23 07:06:[address] [facility] HEMOGLOBIN A1C 2025-01-23 07:06:00 Angie Argueta [facility] DRUG SCREEN, URINE, TRANSPLANT 2025-01-23 07:06:[address] [facility] ETHANOL 2025-01-23 07:06:[address] [facility] PHOSPHATIDYLETHANOL, BLOOD 2025-01-23 07:06:[address] [facility] CARBOHYDRATE ANTIGEN 19-9 (CA 19-9) 2025-01-23 07:06:[address] [facility] ZINC 2025-01-23 07:06:00 Angie Argueta [facility] URIC ACID 2025-01-23 07:06:00 Angie Argueta [facility] TSH 2025-01-23 07:06:[address] [facility] T3 2025-01-23 07:06:[address] [facility] T4 2025-01-23 07:06:[address] [facility] HEPATITIS B CORE ANTIBODY, IGM 2025-01-23 07:06:[address] [facility] HC LAB HIV-1 AG W/HIV-1&2 AB 2025-01-23 07:06:[address] [facility] CYTOMEGALOVIRUS ANTIBODY, IGG 2025-01-23 07:06:[address] [facility] EBV ANTIBODY, IGM 2025-01-23 07:06:00 Angie Argueta [facility] RUBEOLA ANTIBODY IGG 2025-01-23 07:06:00 Christi Argueta se [facility] MUMPS ANTIBODY, IGG 2025-01-23 07:06:00 Jordan Argueta [facility] RUBELLA ANTIBODY, IGG 2025-01-23 07:06:00 Kelsey Argueta [facility] VARICELLA ZOSTER ANTIBODY, IGG 2025-01-23 07:06:00 Angie Argueta [facility] CRYPTOCOCCAL ANTIGEN 2025-01-23 07:06:00 Christi Argueta se [facility] STRONGYLOIDES ANTIBODY, IGG 2025-01-23 07:06:00 Angie Argueta [facility] TOXOPLASMA GONDII ANTIBODY, IGG 2025-01-23 07:06:[address] [facility] COCCIDIOIDES ANTIBODIES 2025-01-23 07:06:00 Angie Argueta [facility] RPR 2025-01-23 07:06:00 Angie Argueta [facility] T SPOT TB 2025-01-23 07:06:00 Ellie, [facility] URINALYSIS W/ MICROSCOPIC 2025-01-23 07:06:[address] [facility] WGCEY-9-UTUCCTLFRHL\\, SERUM 2025-01-23 07:06:[address] [facility] ALPHA-1 ANTITRYPSIN MUTATION ANALYSIS 2025-01-23 07:06:[address] [facility] PSA 2025-01-23 07:06:[address] [facility] TESTOSTERONE, FREE + TOTAL 2025-01-23 07:06:[address] [facility] CBC W/PLT COUNT & AUTO DIFFERENTIAL 2025-01-23 07:06[facility] (QUEST) 2025-01-23 06:53:00 Provider, Not In [facility] DRUG MONITORING TEMPLATE 2025-01-23 06:53:00 Pro vider, Not In [facility] T-SPOT(R).TB (QUEST) 2025-01-23 06:53:00 Provide r, Not In [facility] US ABDOMEN LIMITED 2025-01-09 09:00:43 Sorin Murillo V [facility] COMPREHENSIVE METABOLIC PANEL 2024-12-28 04:09:00 Lynn Edward [facility] PROTHROMBIN TIME/INR 2024-12-28 04:09:00 Lynn Edward [facility] CBC (HEMOGRAM ONLY) 2024-12-28 04:09:00 Lynn Edward [facility] IMMUNOGLOBULIN G (IGG) 2024-12-27 04:07:00 Kuldip Lopes [facility] ANTI-NUCLEAR ANTIBODY (BRISSA) 2024-12-27 04:07:00 Kuldip Lopes [facility] COMPREHENSIVE METABOLIC PANEL 2024-12-27 04:07:00 Lynn Edward [facility] PROTHROMBIN TIME/INR 2024-12-27 04:07:00 Lynn Edward [facility] CBC (HEMOGRAM ONLY) 2024-12-27 04:07:00 Lynn Edward [facility] HEREDITARY HEMOCHROMATOSIS 2024-12-27 04:07:00 Kuldip Pringle [facility] US ABDOMEN LIMITED 2024-12-26 07:40:00 PalejBia moranwagradysh A [facility] PHOSPHATIDYLETHANOL, BLOOD 2024-12-26 04:27:00 P Chanell zapata A [facility] CBC W/PLT COUNT & AUTO DIFFERENTIAL 2024-12-26 04:22:00 Paleabhinava Nawazish A [facility] BASIC METABOLIC PANEL 2024-12-26 04:22:00 Bia Wagoner alawadio A [facility] HEPATIC FUNCTION PANEL 2024-12-26 04:22:00 Bia Vasquezwazish A [facility] MAGNESIUM 2024-12-26 04:22:00 Burton Michael awazish A [facility] PHOSPHORUS 2024-12-26 04:22:00 Palejwala, N awazish A [facility] PROTHROMBIN TIME/INR 2024-12-26 04:22:00 Bia Goldsmithwazivirgilio A [facility] CBC W/PLT COUNT & AUTO DIFFERENTIAL 2024-12-26 04:22:00 PaleBia keywazish A [facility] CT ABDOMEN/PELVIS WITH IV CONTRAST 2024-12-25 23:03:00 Dago Casillas [facility] BLOOD CULTURE 2024-12-25 19:09:00 Dago Casillas [facility] CBC W/PLT COUNT & AUTO DIFFERENTIAL 2024-12-25 18:59:00 Sonja Dago [facility] LACTIC ACID, VENOUS 2024-12-25 18:59:00 Dago Casillas [facility] COMPREHENSIVE METABOLIC PANEL 2024-12-25 18:59:00 Casillas, Dago [facility] PROTHROMBIN TIME/INR 2024-12-25 18:59[facility]59[facility]/ REFLEX URINE CULTURE 2024-12-25 18:59:00 [facility] W/[facility] COUNT & AUTO DIFFERENTIAL 2024-12-25 18:59:00 [facility] 2024-12-25 18:59:00 [facility] 2024-12-25 18:59:00 [facility] US ABDOMEN LIMITED 2024-12-21 12:46:00 Sorin Murillo V [facility] CBC W/PLT COUNT & AUTO DIFFERENTIAL 2024-12-21 06:31:00 [facility] BASIC METABOLIC PANEL 2024-12-21 06:31:00 [facility] HEPATIC FUNCTION PANEL 2024-12-21 06:31:00 [facility] CBC W/PLT COUNT & AUTO DIFFERENTIAL 2024-12-21 06:31:00 [facility] PROTHROMBIN TIME/INR 2024-12-21 06:31:00 Jasmin Anthony Roselyn [facility] XR ABDOMEN/KUB 1 VIEW PORTABLE 2024-12-20 13:41:31 Greta Renteria [facility] ABORH, MANUAL 2024-12-20 04:51:00 Karina Delgadillo [facility] BASIC METABOLIC PANEL 2024-12-20 04:23:00 [facility] HEPATIC FUNCTION PANEL 2024-12-20 04:23:00 [facility] CBC W/PLT COUNT & AUTO DIFFERENTIAL 2024-12-20 04:23:00 [facility] PROTHROMBIN TIME/INR 2024-12-20 04:23:00 Jasmin Anthony [facility] TYPE AND SCREEN, AUTOMATED 2024-12-20 04:23:00 Phillip Paul [facility] CBC W/PLT COUNT & AUTO DIFFERENTIAL 2024-12-20 04:23:00 [facility] URINALYSIS WITH MICROSCOPIC IF INDICATED 2024-12-19 17:32:00 Beverly [facility] XR CHEST 2 VIEWS 2024-12-19 14:26:00 Beverly [facility] US ABDOMEN LIMITED 2024-12-19 12:29:59 Trevon Renteria [facility] BASIC METABOLIC PANEL 2024-12-19 04:01:00 [facility] HEPATIC FUNCTION PANEL 2024-12-19 04:01:00 [facility] HEMOGLOBIN A1C 2024-12-19 04:01:00 [facility] LIPID PANEL 2024-12-19 04:01:00 Renteria [facility] MAGNESIUM 2024-12-19 04:01:00 [facility] PHOSPHORUS 2024-12-19 04:01:00 [facility] CBC W/PLT COUNT & AUTO DIFFERENTIAL 2024-12-19 04:01:00 [facility] PHOSPHATIDYLETHANOL, BLOOD 2024-12-19 04:01:00 Mejia Renteria [facility] PROTHROMBIN TIME/INR 2024-12-19 04:01:00 Jasmin Anthony [facility] CBC W/PLT COUNT & AUTO DIFFERENTIAL 2024-12-19 04:01:00 Myra [facility] US ABDOMEN LIMITED 2024-12-18 21:22:00 Gordo [facility] LACTIC ACID, VENOUS 2024-12-18 19:25[facility]24-12-18 [facility]IC [facility]EL 2024-12-18 18:34:00 [facility] W/PLT COUNT & AUTO DIFFERENTIAL 2024-12-18 18:34:00 Gordo [facility] PROTHROMBIN TIME/INR 2024-12-18 18:34:00 GordoFabrice [facility] APTT 2024-12-18 18:34:00 Gordo, [facility] LIPASE 2024-12-18 18:34:00 Gordo, [facility] CBC W/PLT COUNT & AUTO DIFFERENTIAL 2024-12-18 18:34:00 Gordo, [facility] HEPATIC FUNCTION PANEL 2024-12-18 09:27:00 Mariela Lucero K [facility] CBC W/PLT COUNT & AUTO DIFFERENTIAL 2024-12-18 09:27:00 Rafael Line K [facility] PROTHROMBIN TIME/INR 2024-12-18 09:27:00 Anaid Lucero [facility] CBC W/PLT COUNT & AUTO DIFFERENTIAL 2024-12-18 09:27:00 Rafael Line K [facility] MISCELLANEOUS LAB ORDER 2024-12-18 09:27:00 Rafael Line K [facility] PROTHROMBIN TIME/INR 2024-12-13 04:34:00 Magdalena Cordoba [facility] CBC (HEMOGRAM ONLY) 2024-12-13 04:29:00 Magdalena Cordoba [facility] BASIC METABOLIC PANEL 2024-12-13 04:29:00 Kamilah Yu [facility] HEPATIC FUNCTION PANEL 2024-12-13 04:29:00 Akhil Yu [facility] US PARACENTESIS 2024-12-12 15:30:00 Ihsan Yu [facility] BODY FLUID CELL COUNT WITH DIFFERENTIAL 2024-12-12 14:40:00 Aimee [facility] BODY FLUID CULTURE + GRAM STAIN 2024-12-12 14:40:00 [facility] ALBUMIN, BODY FLUID 2024-12-12 14:40:00 Aimee [facility] COMPREHENSIVE METABOLIC PANEL 2024-12-12 04:48:00 Sean [facility] CBC (HEMOGRAM ONLY) 2024-12-12 04:48:00 Sean [facility] PROTHROMBIN TIME/INR 2024-12-12 04:48:00 Sean [facility] MR ABDOMEN WITH & WITHOUT IV CONTRAST 2024-12-11 11:15:00 Angie Argueta [facility] COMPREHENSIVE METABOLIC PANEL 2024-12-11 04:00:00 Sean [facility] CBC (HEMOGRAM ONLY) 2024-12-11 04:00:00 Sean Magdalena [facility] PROTHROMBIN TIME/INR 2024-12-11 04:00:00 Cordoba [facility] CERULOPLASMIN 2024-12-11 04:00:00 Zechariah [facility] IRON, TIBC, % SAT. (WITHOUT FERRITIN) 2024-12-11 04:00:00 [facility] FERRITIN 2024-12-11 04:00:00 Zechariah [facility] ANTI-NUCLEAR ANTIBODY (BRISSA) 2024-12-11 04:00:00 [facility] HC LAB FLUORESC AB SCRN EA AB 2024-12-11 04:00:00 [facility] ACTIN (SMOOTH MUSCLE) ANTIBODY, IGG 2024-12-11 04:00:00 [facility] PHOSPHATIDYLETHANOL, BLOOD 2024-12-11 04:00:00 Jasen Applemery [facility] BILIRUBIN, DIRECT 2024-12-11 04:00:00 Zechariah [facility] BRISSA TITER AND PATTERN 2024-12-11 04:00:00 Zechariah [facility] MITOCHONDRIAL AB SCREEN 2024-12-11 04:00:00 Jake Apple [facility] MITOCHONDRIAL AB TITER 2024-12-11 04:00:00 Earlene Apple [facility] PROTEIN, RANDOM URINE 2024-12-10 08:04:00 Muriel Grider [facility] CREATININE, RANDOM URINE 2024-12-10 08:04:00 Bia Grider [facility] RAPID DRUG SCREEN, URINE 2024-12-10 08:04:00 Mahad Apple [facility] COMPREHENSIVE METABOLIC PANEL 2024-12-10 05:42:00 Sean [facility] PROTHROMBIN TIME/INR 2024-12-10 05:42:00 Sean [facility] CARCINOEMBRYONIC ANTIGEN (CEA) 2024-12-10 05:42:00 Ute [facility] CARBOHYDRATE ANTIGEN 19-9 (CA 19-9) 2024-12-10 05:42:00 Renzo Barth [facility] CALCIUM, IONIZED 2024-12-10 05:42:00 Ghanshyam Grider [facility] MAGNESIUM 2024-12-10 05:42:00 Cheo [facility] PHOSPHORUS 2024-12-10 05:42:00 Cheo [facility] CBC W/PLT COUNT & AUTO DIFFERENTIAL 2024-12-10 05:42:00 [facility] TSH/FREE T4 IF INDICATED 2024-12-10 05:42:00 Bia Grideramando [facility] URIC ACID 2024-12-10 05:42:00 Cheo [facility] T4, FREE 2024-12-10 05:42:00 Cheo [facility] BILIRUBIN, DIRECT 2024-12-10 05:42:00 Yohan [facility] BILIRUBIN, INDIRECT 2024-12-10 05:42:00 Yohan [facility] HAPTOGLOBIN 2024-12-10 05:42:00 Yohan [facility] LACTATE DEHYDROGENASE (LDH) 2024-12-10 05:42:00 Yohan [facility] CBC W/PLT COUNT & AUTO DIFFERENTIAL 2024-12-10 05:42:00 Ghanshyam Grider [facility] URINALYSIS W/ MICROSCOPIC 2024-12-09 20:35:00 Burton Grider [facility] OSMOLALITY, URINE 2024-12-09 11:45:00 Damir Good [facility] SODIUM, RANDOM URINE 2024-12-09 11:45:00 Tonja Good [facility] LIPASE 2024-12-09 05:13:00 Magdalena Cordoba [facility] COMPREHENSIVE METABOLIC PANEL 2024-12-09 05:13:00 Sean [facility] CBC (HEMOGRAM ONLY) 2024-12-09 05:13:00 Magdalena Cordoba [facility] PROTHROMBIN TIME/INR 2024-12-09 05:13:00 Sean [facility] CT ABDOMEN/PELVIS WITH IV CONTRAST 2024-12-08 23:35:29 Sean [facility] CT CHEST WITH IV CONTRAST 2024-12-08 23:35:29 Janina Cordoba [facility] COMPREHENSIVE METABOLIC PANEL 2024-12-08 17:27:00 Sean [facility] CBC (HEMOGRAM ONLY) 2024-12-08 17:27:00 Magdalena Cordoba [facility] ALPHA FETOPROTEIN (AFP), TUMOR MARKER 2024-12-08 17:27:00 Sean [facility] PROTHROMBIN TIME/INR 2024-12-08 17:27:00 Sean [facility] HEPATITIS B PANEL 2024-12-08 17:27:00 Sean [facility] HEPATITIS C ANTIBODY 2024-12-08 17:27:00 Sean [facility] HEPATITIS A ANTIBODY, IGG 2024-12-08 17:27:00 Janina Cordoba [facility] HEPATITIS B SURFACE ANTIGEN 2024-12-08 10:55:00 [facility] HEPATITIS A ANTIBODY, IGM 2024-12-08 10:55:00 [facility] LIPASE 2024-07-10 21:25:00 Kaale, Bude Uni [facility] COMP. METABOLIC PANEL ([id number]) 2024-07-10 21:25:[address] [facility] CBC WITH DIFF 2024-07-10 21:25:00 [facility] 2024-07-10 21:25:00 Freddie March [facility] CT ABDOMEN PELVIS WO CONTRAST 2024-07-10 21:23:[address] [facility] EKG-12 LEAD 2024-05-28 03:57:05 [facility] PO[facility] TEST 2024-05-28 03:45:[address] [facility] XR CHEST 2 VW 2024-05-28 01:48:13 Gaurav [facility] INFLUENZA A/B RSV COVID NAAT 2024-05-28 01:07:[address] [facility] LIPASE 2024-05-28 01:04:00 [facility]ordy [facility] TROPONIN I 2024-05-28 01:04:00 Gaurav [facility] COMP. METABOLIC PANEL ([id number]) 2024-05-28 01:04:[address] [facility] CBC WITH DIFF 2024-05-28 01:04:00 Gaurav [facility] XR CHEST 1 VW 2024-05-05 00:19:16 Tamy Morales [facility] XR NECK SOFT TISSUE 2024-05-05 00:19:[address] [facility] RAPID STREP SCREEN FOR GROUP A 2024-05-04 23:20:[address] [facility] INFLUENZA A/B RSV COVID NAAT 2024-05-04 23:20:[address] [facility] Encounters Start Date/Time End Date/Time Encounter Type Admission Type Attending [facility] Care Facility Care Department Encounter ID Source 2025-05-03 08:10:53 Inpatient [id number] 2025-03-28 18:19:44 Inpatient [id number] [facility] 2024-12-21 12:34:55 Inpatient [facility]AND [facility] [id number] [facility] 2024-12-19 12:22:36 Inpatient [facility] CAVANAUGH [facility] [id number] 2024-12-19 00:00:00 Inpatient [facility] CAVANAUGH [facility] [id number] [facility] 2024-12-12 14:17:30 Inpatient IHSAN RAM[facility]REZ [facility] [id number] [facility] 2024-12-11 09:37:39 Inpatient EL ANGIE ARGUETA [facility] [id number] [facility] 2024-12-08 22:04:45 Inpatient MAGDALENA ONTIVEROS [facility] [id number] [facility] 2024-12-08 20:41:27 Inpatient MAGDALENA ONTIVEROS [facility] [id number] [facility] 2026-03-05 15:00:00 2026-03-05 15:00:00 Outpatient CHARLIE RACHEL [facility] [id number] [facility] 2025-06-24 13:51:00 2025-06-24 13:51:00 Outpatient SFA S[facility] [id number] Arun Abby Montenegro 2025-06-24 00:00:00 2025-06-24 00:00:00 Outpatient Visit S[facility] [id number] Arun Montenegro 2025-05-22 00:00:00 2025-06-22 01:33:57 Telephone Sharonda Morse [facility] [id number] [facility] 2025-06-20 14:24:28 2025-06-20 14:24:28 Outpatient BAIRON REYES [facility] [id number] [facility] 2025-06-20 10:00:00 2025-06-20 10:10:00 Lab Patient Walk-In Bairon Hansen [facility] [id number] [facility] 2025-06-18 09:15:00 2025-06-18 09:15:00 Outpatient NIK VALDIVIA [id number] Jennifer Florez 2025-06-18 00:00:00 2025-06-18 08:01:53 Orders Only Zainab Corbin [facility] [id number] [facility] 2025-06-17 00:00:00 2025-06-17 12:17:34 Telephone LitoSharonda E [facility] [id number] [facility] 2025-06-14 00:00:00 2025-06-14 00:00:00 Outpatient JENNIFER GEORGE [id number] Jennifer Alaniskatherine 2025-05-06 00:00:00 2025-06-06 01:37:05 Telephone Sharonda Morse [facility] [id number] [facility] 2025-06-03 19:16:00 2025-06-04 02:20:00 Emergency ER [facility] [id number] [facility] 2025-06-03 19:16:00 2025-06-04 02:20:00 Emergency Yasmine Cline [facility] [id number] [facility] 2025-06-03 21:20:11 2025-06-03 21:20:11 Emergency EL YASMINE CLINE [facility] [id number] [facility] 2025-06-03 19:18:24 2025-06-03 19:18:24 Outpatient AILEEN [facility]ANETHNATALIE [facility] [id number] [facility] 2025-06-03 00:00:00 2025-06-03 12:37:34 Documentat Nithya Martin [facility] [id number] [facility] 2025-04-23 00:00:00 2025-05-24 01:34:40 Abstract Addis Espinoza [facility] [id number] [facility] 2025-05-22 00:00:00 2025-05-22 14:05:13 Documentat Sharonda Menjivar [facility] [id number] [facility] 2025-05-22 00:00:00 2025-05-22 13:17:58 Telephone Alexi Bhakta [facility] [id number] [facility] 2025-05-21 00:00:00 2025-05-21 10:14:49 Telephone Sharonda Morse [facility] [id number] [facility] 2025-04-16 00:00:00 2025-05-17 01:36:44 Telephone Sharonda Morse [facility] [id number] [facility] 2025-05-15 00:00:00 2025-05-16 10:16:09 Orders Only [facility] [id number] [facility] 2025-05-15 17:58:00 2025-05-16 01:07:00 Emergency ER [facility] [id number] [facility] 2025-05-15 17:58:00 2025-05-16 01:07:00 Emergency Lance Hatch [facility] [id number] [facility] 2025-05-15 23:06:48 2025-05-15 23:06:48 Emergency EL LANCE HATCH [facility] [id number] [facility] 2025-05-14 11:30:00 2025-05-14 11:40:00 Lab Patient Walk-In [facility] [id number] [facility] 2025-05-14 00:00:00 2025-05-14 11:37:59 Documentat Sharonda Menjivar [facility] [id number] [facility] 2025-05-14 09:30:00 2025-05-14 09:45:00 Follow-Up Michelle Pond [facility] [id number] [facility] 2025-05-14 09:21:14 2025-05-14 09:21:14 Outpatient EL [facility] [id number] [facility] 2025-05-14 09:21:11 2025-05-14 09:21:11 Outpatient MICHELLE GRAY [facility] [id number] [facility] 2025-05-13 00:00:00 2025-05-13 12:47:51 Documentat Felipa Bey [facility] [id number] [facility] 2025-05-10 00:00:00 2025-05-10 10:36:39 Telephone Sharonda Morse [facility] [id number] [facility] 2025-05-06 00:00:00 2025-05-06 16:20:39 Documentat Sharonda Menjivar [facility] [id number] [facility] 2025-05-01 16:14:00 2025-05-04 10:59:00 Hospital Encounter Yasmine Cline Luh Herrera Neeraj [facility] [id number] [facility] 2025-05-01 21:22:17 2025-05-01 21:22:17 Emergency EL YASMINE CLINE [facility] [id number] [facility] 2025-05-01 18:26:00 2025-05-01 18:26:00 Emergency YASMINE PEÑA [facility] [id number] [facility] 2025-05-01 00:00:00 2025-05-01 00:00:00 Travel [facility] [id number] [facility] 2025-03-29 00:00:00 2025-04-29 01:34:45 Telephone Sharonda Morse [facility] [id number] [facility] 2025-03-12 00:00:00 2025-04-27 02:39:53 Telephone LitoSharonda [facility] [id number] [facility] 2025-03-12 00:00:00 2025-04-27 02:39:49 Telephone Lito Sharonda Cordon [facility] [id number] [facility] 2025-04-26 00:00:00 2025-04-26 15:35:53 Telephone Sharonda Morse [facility] [id number] [facility] 2025-04-24 00:00:00 2025-04-24 13:45:29 Refill Felipa López [facility] [id number] [facility] 2025-04-23 14:00:00 2025-04-23 14:30:00 Follow-Up Paxton Quach [facility] [id number] [facility] 2025-04-23 13:46:52 2025-04-23 13:46:52 Outpatient EL PAXTON QUACH [facility] [id number] [facility] 2025-04-19 00:00:00 2025-04-19 13:39:06 Telephone Sharonda Morse [facility] [id number] [facility] 2025-04-16 00:00:00 2025-04-16 15:58:20 Documentat ion Sharonda Morse [facility] [id number] [facility] 2025-03-13 00:00:00 2025-04-13 02:35:06 Abstract Felipa López [facility] [id number] [facility] 2025-03-13 00:00:00 2025-04-13 02:34:26 Abstract Felipa López [facility] [id number] [facility] 2025-04-10 18:26:00 2025-04-12 16:44:00 Outpatient [facility] [id number] [facility] 2025-04-10 18:26:00 2025-04-12 16:44:00 Hospital Encounter Usha Shields, Flavio Russell, Sondra Mcgill [facility] [id number] [facility] 2025-04-11 00:00:00 2025-04-11 05:48:02 Orders Only [facility] [id number] [facility] 2025-04-11 01:04:54 2025-04-11 01:04:54 Outpatient FLAVIO WHITLEY [facility] [id number] SLE 2025-04-11 00:00:00 2025-04-11 00:00:00 Travel [facility] [id number] [facility] 2025-04-10 22:03:28 2025-04-10 22:03:28 Outpatient USHA CARCAMO [facility] [id number] SLE 2025-03-25 13:59:00 2025-03-31 16:32:00 Hospital Encounter Donna Sadler Rahana K Nikhil, Seth Kemal, Nejmudin R [facility] [id number] [facility] 2025-03-29 00:00:00 2025-03-29 12:08:55 Documentat Sharonda Menjivar [facility] [id number] [facility] 2025-03-29 09:57:48 2025-03-29 09:57:48 Outpatient DENVER HU [facility] [id number] [facility] 2025-02-26 00:00:00 2025-03-29 01:39:43 Abstract Addis Espinoza [facility] [id number] [facility] 2025-03-26 16:58:07 2025-03-26 16:58:07 Outpatient JENNIFER YE SLEH SLEH [id number] SLE 2025-03-26 00:00:00 2025-03-26 00:00:00 Travel [facility] [id number] [facility] 2025-03-25 16:41:11 2025-03-25 16:41:11 Emergency DONNA HEMPHILL [facility] [id number] SLE 2025-03-25 16:41:05 2025-03-25 16:41:05 Emergency DONNA HEMPHILL [facility] [id number] [facility] 2025-03-18 10:25:02 2025-03-18 10:25:02 Outpatient SFA SFA [id number] Arun Montenegro 2025-03-18 00:00:00 2025-03-18 00:00:00 Outpatient Visit SFA [id number] Arun [place] 2025-03-14 00:00:00 2025-03-14 11:55:33 Documentat ion LitoSharonda [facility] [id number] [facility] 2025-03-14 00:00:00 2025-03-14 11:20:44 Documentat ion Shanell Leo [facility] [id number] [facility] 2025-03-14 11:19:10 2025-03-14 11:19:15 Outpatient [facility] [id number] [facility] 2025-03-14 11:00:00 2025-03-14 11:19:15 UNOS Charge Visit Dieter Melendez [facility] [id number] [facility] 2025-03-14 00:00:00 2025-03-14 11:17:50 Documentat ion Nick Ross [facility] [id number] [facility] 2025-03-14 00:00:00 2025-03-14 11:10:43 Documentat ion Felipa López [facility] [id number] [facility] 2025-03-14 00:00:00 2025-03-14 10:41:37 Documentat ion Felipa López [facility] [id number] [facility] 2025-03-14 00:00:00 2025-03-14 10:32:51 Documentat ion Felipa López [facility] [id number] [facility] 2025-03-12 00:00:00 2025-03-14 10:11:58 Orders Only Provider, Not In System [facility] [id number] [facility] 2025-03-12 00:00:00 2025-03-14 10:11:52 Orders Only Provider, Not In System [facility] [id number] [facility] 2025-02-11 00:00:00 2025-03-14 01:32:13 Abstract Felipa López [facility] [id number] [facility] 2025-03-12 00:00:00 2025-03-12 15:48:21 Documentat Sharonda Menjivar [facility] [id number] [facility] 2025-03-12 00:00:00 2025-03-12 15:38:17 Documentat armen AllisonroSharonda [facility] [id number] [facility] 2025-03-12 00:00:00 2025-03-12 13:45:31 Documentat armen Felipa López [facility] [id number] [facility] 2025-03-12 10:30:00 2025-03-12 10:40:00 Lab Patient Walk-In [facility] [id number] [facility] 2025-03-12 10:15:00 2025-03-12 10:30:00 Follow-Up Michelle Pond [facility] [id number] [facility] 2025-03-12 10:23:48 2025-03-12 10:23:48 Outpatient EL SLE SLE [id number] SLEH 2025-03-12 10:23:44 2025-03-12 10:23:44 Outpatient EL MICHELLE POND SLE SLEH [id number] SLE 2025-03-11 00:00:00 2025-03-11 13:35:37 Documentat armen Felipa López [facility] [id number] [facility] 2025-03-07 00:00:00 2025-03-07 16:04:17 Telephone LitoSharonda [facility] [id number] [facility] 2025-03-05 19:25:00 2025-03-07 14:09:00 Inpatient ER [facility] [id number] [facility] 2025-03-05 19:25:00 2025-03-07 14:09:00 Hospital Encounter Thea Farmer, Lance Forte, Peewee Edward, Lynn Flowers [facility] [id number] [facility] 2025-03-06 00:00:00 2025-03-06 00:00:00 Travel [facility] [id number] [facility] 2025-03-05 23:23:03 2025-03-05 23:23:03 Emergency [facility] [id number] [facility] 2025-03-04 16:00:00 2025-03-04 17:26:30 Office Visit Charlie Rachel [facility] [address] [id number] [facility] 2025-02-08 00:00:00 2025-03-04 10:45:47 Telephone Laureen Infante Mariela [facility] [id number] [facility] 2025-02-28 10:23:00 2025-02-28 13:41:00 Hospital Encounter Bairon Hansen [facility] [id number] [facility] 2025-02-28 12:13:00 2025-02-28 13:01:00 Anesthesia Event Eva Lewis Timothy [facility] [id number] [facility] 2025-02-28 11:30:00 2025-02-28 12:30:00 Surgery Bairon Hansen [facility] [id number] [facility] 2025-02-28 00:00:00 2025-02-28 00:00:00 Outpatient JENNIFER GEORGE [id number] Jennifer Florez 2025-02-28 00:00:00 2025-02-28 00:00:00 Travel [facility] [id number] [facility] 2025-02-26 14:42:44 2025-02-26 23:59:00 Outpatient ANGIE GRIFFIN [facility] [id number] [facility] 2025-02-26 14:42:44 2025-02-26 23:59:00 Hospital Encounter Angie Argueta [facility] [id number] [facility] 2025-02-26 00:00:00 2025-02-26 15:15:25 Telephone Sharonda Morse [facility] [id number] [facility] 2025-02-26 13:00:00 2025-02-26 14:00:00 Follow-Up Paxton Quach [facility] [id number] [facility] 2025-02-26 12:46:04 2025-02-26 12:46:04 Outpatient EL PAXTON QUACH [facility] [id number] [facility] 2025-02-26 00:00:00 2025-02-26 00:00:00 Travel [facility] [id number] [facility] 2025-02-25 00:00:00 2025-02-25 14:25:05 Documentat Mariel Cline [facility] [id number] [facility] 2025-02-22 00:00:00 2025-02-22 16:15:12 Maritza Bacon [facility] [id number] [facility] 2025-02-19 00:00:00 2025-02-19 00:00:00 Outpatient JENNIFER GEORGE [id number] Jennifer Florez 2025-02-18 00:00:00 2025-02-18 10:40:48 Telephone Sharonda Morse [facility] [id number] [facility] 2025-02-14 18:52:00 2025-02-16 15:45:00 Inpatient [facility] [id number] [facility] 2025-02-14 18:52:00 2025-02-16 15:45:00 Hospital Encounter Catrina, Jamil Kenney Ronijasen, Lincoln Chiu [facility] [id number] [facility] 2025-02-14 20:50:36 2025-02-14 20:50:36 Emergency EL CATRINA, JAMIL [facility] [id number] [facility] 2025-02-14 19:03:25 2025-02-14 19:03:25 Emergency EL CATRINA, JAMIL [facility] [id number] [facility] 2025-02-14 00:00:00 2025-02-14 00:00:00 Travel [facility] [id number] [facility] 2025-02-13 12:48:18 2025-02-13 23:59:00 [facility] [id number] 2025-02-13 12:48:18 2025-02-13 23:59:00 Hospital Encounter Angie Argueta [facility] [id number] [facility] 2025-02-13 14:15:00 2025-02-13 14:30:00 Lab Patient Walk-In EllieAngie lerma Mejia [facility] [id number] [facility] 2025-02-13 13:45:00 2025-02-13 14:15:00 Office Visit Angie Argueta [facility] [id number] [facility] 2025-02-13 14:04:33 2025-02-13 14:04:33 Outpatient EL ELLIE, RISE [facility] [id number] [facility] 2025-02-13 14:04:22 2025-02-13 14:04:22 Outpatient EL ELLIE, RISE [facility] [id number] [facility] 2025-02-13 00:00:00 2025-02-13 11:17:17 Telephone Sharonda Morse [facility] [id number] [facility] 2025-02-13 00:00:00 2025-02-13 00:00:00 Outpatient JENNIFER GEORGE [id number] Jennifer Florez 2025-02-12 00:00:00 2025-02-12 00:00:00 Outpatient EL SLEH SLEH [id number] SLEH 2025-02-08 00:00:00 2025-02-08 08:48:12 Documentat ion Felipa López [facility] [id number] [facility] 2025-02-07 07:29:00 2025-02-07 16:45:00 Outpatient GUSTABO MCCLENDON [facility] Cardiac [facility] [id number] SLE 2025-02-07 07:29:00 2025-02-07 16:45:00 Hospital Encounter Gustabo Vazquez R [facility] [id number] [facility] 2025-02-07 10:32:00 2025-02-07 12:24:00 Surgery Gustabo Vazquez R [facility] [id number] [facility] 2025-02-07 00:00:00 2025-02-07 08:46:49 Orders Only [facility] [id number] [facility] 2025-02-07 00:00:00 2025-02-07 00:00:00 Travel [facility] [id number] [facility] 2025-02-06 00:00:00 2025-02-06 10:56:11 Orders Only Felipa López [facility] [id number] [facility] 2025-02-05 00:00:00 2025-02-05 00:00:00 Outpatient EL SLEH SLEH [id number] SLEH 2025-02-01 11:29:32 2025-02-01 23:59:00 Outpatient EL ANGIE ARGUETA SLEH SLEH [id number] SLEH 2025-02-01 10:00:00 2025-02-01 23:59:00 Hospital Encounter Angie Argueta Mejia [facility] [id number] [facility] 2025-02-01 00:00:00 2025-02-01 11:17:37 Orders Only [facility] [id number] [facility] 2025-02-01 08:28:50 2025-02-01 09:59:00 Outpatient EL ELLIE, RISE SLEH SLEH [id number] SLEH 2025-02-01 08:28:50 2025-02-01 09:59:00 Hospital Encounter Ellie, Rise J [facility] [id number] [facility] 2025-02-01 09:00:00 2025-02-01 09:30:00 Office Visit Ellie, Rise J [facility] [id number] [facility] 2025-02-01 08:26:44 2025-02-01 08:27:00 Outpatient EL ELLIE, RISE SLEH SLEH [id number] SLE 2025-02-01 08:26:44 2025-02-01 08:27:00 Hospital Encounter Ellie, Rise J [facility] [id number] [facility] 2025-02-01 08:25:22 2025-02-01 08:25:22 Hospital Encounter Ellie, Rise J [facility] [id number] [facility] 2025-02-01 08:25:21 2025-02-01 08:25:22 Outpatient EL ELLIE, RISE [facility] [id number] [facility] 2025-02-01 08:03:00 2025-02-01 08:03:00 Outpatient EL ELLIE, RISE [facility] [id number] [facility] 2025-01-29 19:29:00 2025-01-30 02:17:00 Emergency [facility] [id number] [facility] 2025-01-29 19:29:00 2025-01-30 02:17:00 Emergency Yovani Culver Michael S [facility] [id number] [facility] 2025-01-29 23:26:00 2025-01-29 23:26:00 Emergency EL YOVANI CULVER [facility] [id number] [facility] 2025-01-28 00:00:00 2025-01-28 10:41:54 Telephone Gustabo Vazquez [facility] [id number] [facility] 2025-01-28 00:00:00 2025-01-28 08:33:44 Documentat Pastora Cool [facility] [id number] [facility] 2025-01-23 00:00:00 2025-01-25 16:53:13 Orders Only Provider, Not In System [facility] [id number] [facility] 2025-01-25 00:00:00 2025-01-25 10:13:30 Documentat Sharonda Menjivar [facility] [id number] [facility] 2025-01-23 00:00:00 2025-01-25 09:51:28 Orders Only Provider, Not In System [facility] [id number] [facility] 2025-01-25 00:00:00 2025-01-25 09:47:29 Documentat Sharonda Menjivar [facility] [id number] [facility] 2025-01-25 00:00:00 2025-01-25 00:00:00 Telephone Sharonda Morse [facility] [id number] [facility] 2025-01-25 00:00:00 2025-01-25 00:00:00 Telephone Sharonda Morse [facility] [id number] [facility] 2025-01-23 15:16:09 2025-01-23 23:59:00 Outpatient EL ANGIE ARGUETA [facility] [id number] [facility] 2025-01-23 15:16:09 2025-01-23 23:59:00 Hospital Encounter Angie Argueta [facility] [id number] [facility] 2025-01-23 14:21:15 2025-01-23 15:15:00 Outpatient EL ELLIEANGIE LERMA [facility] [id number] [facility] 2025-01-23 14:21:15 2025-01-23 15:15:00 Hospital Encounter Angie Argueta [facility] [id number] [facility] 2025-01-23 14:20:39 2025-01-23 14:20:39 [facility] [id number] [facility] 2025-01-23 14:20:39 2025-01-23 14:20:39 Hospital Encounter Angie Argueta [facility] [id number] [facility] 2025-01-23 12:45:00 2025-01-23 13:00:00 Office Visit Gustabo Vazquez [facility] [id number] [facility] 2025-01-23 12:16:52 2025-01-23 12:16:52 Outpatient EL GUSTABO VAZQUEZ [facility] [id number] [facility] 2025-01-23 10:00:00 2025-01-23 10:30:00 Evaluation Dieter Melendez Abbas A [facility] [id number] [facility] 2025-01-23 09:00:00 2025-01-23 09:30:00 Evaluation Angie Argueta Amy [facility] [id number] [facility] 2025-01-23 08:30:00 2025-01-23 09:00:00 Social Work Angie Argueta Shundrika [facility] [id number] [facility] 2025-01-23 08:00:00 2025-01-23 08:30:00 Evaluation Angie Argueta Shayna [facility] [id number] [facility] 2025-01-23 07:30:00 2025-01-23 07:40:00 Lab Patient Walk-In Angie Argueta [facility] [id number] [facility] 2025-01-23 06:43:50 2025-01-23 06:43:50 Outpatient EL ANGIE ARGUETA [facility] [id number] SLE 2025-01-23 06:43:48 2025-01-23 06:43:48 Outpatient [facility] SLE [id number] SLE 2025-01-23 06:43:45 2025-01-23 06:43:45 Outpatient [facility] [id number] [facility] 2025-01-23 06:43:42 2025-01-23 06:43:42 Outpatient [facility] SLE [id number] SLE 2025-01-23 06:43:38 2025-01-23 06:43:38 Outpatient EL AARON WEINBERG [facility] [id number] [facility] 2025-01-22 00:00:00 2025-01-22 16:51:28 Telephone LitoSharonda [facility] [id number] [facility] 2025-01-21 00:00:00 2025-01-21 15:33:20 Documentat ion Nohemy Caldwell [facility] [id number] [facility] 2025-01-21 00:00:00 2025-01-21 08:11:50 Telephone Keyonna Be [facility] [id number] [facility] 2025-01-18 00:00:00 2025-01-18 15:43:48 Telephone Lito, Alexandra [facility] [id number] [facility] 2025-01-18 00:00:00 2025-01-18 14:25:38 Documentat ion Chelsea Giron [facility] [id number] [facility] 2025-01-17 00:00:00 2025-01-17 09:23:31 Documentat ion Chelsae Giron [facility] [id number] [facility] 2025-01-15 00:00:00 2025-01-15 13:10:48 Documentat Chelsea Tejada [facility] [id number] [facility] 2025-01-15 00:00:00 2025-01-15 12:39:16 Documentat Chelsea Tejada [facility] [id number] [facility] 2025-01-09 07:54:37 2025-01-09 23:59:00 Outpatient [facility] [id number] [facility] 2025-01-09 07:00:00 2025-01-09 23:59:00 Hospital Encounter Sorin Murillo V [facility] [id number] [facility] 2025-01-03 00:00:00 2025-01-03 16:18:11 Telephone Sharonda Morse [facility] [id number] [facility] 2025-01-03 00:00:00 2025-01-03 14:52:52 Telephone Sharonda Morse [facility] [id number] [facility] 2025-01-03 14:31:38 2025-01-03 14:31:38 Outpatient SFA [facility] [id number] Arun Montenegro 2025-01-03 00:00:00 2025-01-03 00:00:00 Outpatient Visit [facility] [id number] Arun Montenegro 2025-01-02 00:00:00 2025-01-02 17:12:32 Telephone Sharonda Morse [facility] [id number] [facility] 2025-01-02 00:00:00 2025-01-02 16:49:53 Telephone Sharonda Morse [facility] [id number] [facility] 2025-01-02 00:00:00 2025-01-02 12:54:17 Orders Only Felipa López [facility] [id number] [facility] 2024-12-25 16:32:00 2024-12-28 10:59:00 Hospital Encounter Dago Casillas Nawazish A Jain, Nehal Patel [facility] [id number] [facility] 2024-12-27 00:00:00 2024-12-27 00:00:00 Outpatient AILEEN SORIN MURILLO [facility] [id number] [facility] 2024-12-27 00:00:00 2024-12-27 00:00:00 Outpatient JENNIFER GEORGE [id number] Jennifer Florez 2024-12-26 00:00:00 2024-12-26 12:22:19 Documentat Sharonda Menjivar [facility] [id number] [facility] 2024-12-26 07:20:18 2024-12-26 07:20:18 Outpatient CHANELL ORTEZ [facility] [id number] [facility] 2024-12-25 22:33:08 2024-12-25 22:33:08 Emergency [facility]LL [id number] 2024-12-25 00:00:00 2024-12-25 00:00:00 Travel [facility] [id number] [facility] 2024-12-18 18:12:00 2024-12-21 18:37:00 Hospital Encounter Maribeth Friedman Catherine Margaret Kulkarni, Mrinalini Z [facility] [id number] [facility] 2024-12-21 00:00:00 2024-12-21 13:30:08 Orders Only Sorin Murillo V [facility] [id number] [facility] 2024-12-20 11:43:43 2024-12-20 11:43:43 Outpatient AILEEN GRETA RENTERIA [facility] [id number] [facility] 2024-12-19 14:16:20 2024-12-19 14:16:20 Outpatient AILEEN GRETA RENTERIA [facility] [id number] [facility] 2024-12-19 00:00:00 2024-12-19 00:00:00 Travel [facility] [id number] [facility] 2024-12-18 20:57:29 2024-12-18 20:57:29 Emergency EL MARIBETH FRIEDMAN [facility] [id number] [facility] 2024-12-18 00:00:00 2024-12-18 16:23:31 Orders Only Rios Lucero [facility] [id number] [facility] 2024-12-18 08:00:00 2024-12-18 08:30:00 Office Visit Rios Lucero [facility] [id number] [facility] 2024-12-18 08:09:48 2024-12-18 08:09:48 Outpatient RIOS PINEDO [facility] [id number] [facility] 2024-12-08 16:21:00 2024-12-13 18:10:00 Hospital Encounter Dwayne Fritz, Magdalena Good, Damir Jerry, Dara Yu, Fabio Ng [facility] [id number] [facility] 2024-12-12 00:00:00 2024-12-12 15:16:27 Abstract Dieter Melendez [facility] [id number] [facility] 2024-12-12 00:00:00 2024-12-12 15:15:50 Abstract Dieter Melendez [facility] [id number] [facility] 2024-12-12 00:00:00 2024-12-12 00:00:00 Outpatient NIK VALDIVIA [id number] Jennifer Florez 2024-12-08 00:00:00 2024-12-08 00:00:00 Lab Requisitio n [facility] [id number] [facility] 2024-12-08 00:00:00 2024-12-08 00:00:00 Travel [facility] [id number] [facility] 2024-11-06 15:29:58 2024-11-06 15:29:58 Outpatient [facility] [id number] Arun Montenegro 2024-11-06 00:00:00 2024-11-06 00:00:00 Outpatient Visit [facility] [id number] Arun Montenegro 2024-08-30 13:59:02 2024-08-30 13:59:02 Outpatient SFA [facility] [id number] Arun Montenegro 2024-08-30 00:00:00 2024-08-30 00:00:00 Outpatient Visit [facility] [id number] Arun Montenegro 2024-07-19 11:11:36 2024-07-19 11:11:36 Outpatient SFA [facility] [id number] Arun Montenegro 2024-07-19 00:00:00 2024-07-19 00:00:00 Outpatient Visit [facility] [id number] Arun Montenegro 2024-07-10 15:10:00 2024-07-10 18:37:00 Emergency Freddie March [facility] 1.0.114 350.1.13.10 4.2.7.2.686 [id number] [facility] 2024-05-30 00:00:00 2024-06-30 18:18:47 Patient Secure Msg Doctor Unassigned, [place] Doctor Unassigned, [place] [facility] 1.0.114 350.1.13.10 4.2.7.2.686 [id number] [facility] 2024-06-21 15:30:00 2024-06-21 15:30:00 Outpatient FLAKITO CAIN [id number] Jennifer Florez 2024-05-28 00:00:00 2024-05-28 12:08:14 Letter (Out) Neurology [facility] 1.0.114 350.1.13.10 4.2.7.2.686 [id number] [facility] 2024-05-27 19:44:00 2024-05-27 22:59:00 Emergency X GORDY RANDOLPH [facility] [id number] [facility] 2024-05-27 19:44:00 2024-05-27 22:59:00 Emergency Gordy Randolph [facility] 1.2.840.114 350.1.13.10 4.2.7.2.686 [id number] [facility] 2024-05-24 15:51:34 2024-05-24 15:51:34 Outpatient SFA [facility] [id number] Arun Montenegro 2024-05-24 00:00:00 2024-05-24 00:00:00 Outpatient Visit SFA [id number] Arun Montenegro 2024-05-16 14:30:00 2024-05-16 15:34:46 Telemedici ne Charlie Rachel [facility] [address] 1.2.840.114 350.1.13.58 9.2.7.2.686 [id number] [facility] 2024-05-15 15:36:32 2024-05-15 15:36:32 Outpatient SFA [facility] [id number] Arun Montenegro 2024-05-15 00:00:00 2024-05-15 00:00:00 Outpatient Visit SFA [id number] Arun Mora Lan 2024-05-04 18:22:00 2024-05-04 22:46:00 Emergency Tamy Morales [facility] 1.2.840.114 350.1.13.10 4.2.7.2.686 [id number] [facility] 2024-05-04 18:22:00 2024-05-04 22:46:00 Emergency X TAMY MORALES TAMY [facility] [id number] [facility] 2024-04-17 15:05:00 2024-04-22 20:08:00 Inpatient ZEB BENDER [facility] [id number] [facility] 2024-04-17 15:43:00 2024-04-17 23:59:00 Outpatient BRITTANIE ZEPEDA [facility] [id number] [facility] 2024-04-09 00:00:00 2024-04-09 00:00:00 Outpatient NIK VALDIVIA [id number] [facility] 2024-02-15 15:00:00 2024-02-15 15:00:00 Outpatient JENNIFER GEORGE [id number] [facility] 2024-02-14 14:00:00 2024-02-14 14:00:00 Outpatient NIK VALDIVIA [id number] [facility] 2024-02-13 00:00:00 2024-02-13 00:00:00 Outpatient NIK VALDIVIA [id number] [facility] 2024-01-12 07:40:00 2024-01-12 07:40:00 Outpatient JENNIFER GEORGE [id number] [facility] 2024-01-10 08:20:00 2024-01-10 08:20:00 Outpatient JENNIFER GEORGE [id number] [facility] 2024-01-10 00:00:00 2024-01-10 00:00:00 Outpatient NIK VALDIVIA [id number] [facility] 2024-01-10 00:00:00 2024-01-10 00:00:00 Outpatient [facility]IK VALDIVIA [id number] [facility] 2024-01-06 00:00:00 2024-01-06 00:00:00 Outpatient MD JENNIFER KOEHLER [id number] Jennifer Florez 2024-01-06 00:00:00 2024-01-06 00:00:00 Outpatient MD JENNIFER KOEHLER [id number] Jennifer Florez 2024-01-03 15:30:00 2024-01-03 15:30:00 Outpatient NIK VALDIVIA JENNIFER GEORGE [id number] Jennifer Florez 2017-01-04 07:56:27 2017-01-04 11:06:00 Emergency X JONNA GUY [facility] [id number] [facility] Results Test Description Test Time Test Comments Results Result Co mments Source Specimen slightly ictericBILIRUBIN, [id number] 17:20:23* Test Item Value Reference Range Interpretation Comme nts BILIRUBIN DIRECT (BEAKER) (t est code = 706) 1.7 mg/dL 0.1-0.5 H PROTHROMBIN TIME/[id number] 17:04:39* Test Item Value Reference Range Interpretation Comme nts PROTIME (BEAKER) (test code = 759) 17.7 seconds 9.9-12.7 H INR (BEAKER) (test code = 370) 1.58 See Comment RECOMMENDED COUMADIN/WARFARIN INR THERAPY RANGESSTANDARD DOSE: 2.0 - 3.0 Includes: PROPHYLAXIS for venous thrombosis, systemic embolization; TREATMENT for venous thrombosis and/or pulmonary embolus.HIGH RISK: Target INR is 2.5-3.5 for patients with mechanical heart valves.Insurance Office Manager ID -CBC W/PLT COUNT & AUTO [id number] 16:47:14* Test Item Value Reference Range Interpretation Comme nts WHITE BLOOD CELL COUNT (BEAK ER) (test code = 775) 4.1 K/ L 3.5-10.5 RED BLOOD CELL COUNT (BEAKER ) (test code = 761) 3.23 M/ L 3.93-5.22 L HEMOGLOBIN (BEAKER) (test co de = 410) 10.6 GM/DL 11.2-15.7 L HEMATOCRIT (BEAKER) (test co de = 411) 32.6 % 34.1-44.9 L MEAN CORPUSCULAR VOLUME (LUCAS KER) (test code = 753) 101 fL 79-95 H MEAN CORPUSCULAR HEMOGLOBIN (BEAKER) (test code = 751) 32.8 pg 25.6-32.2 H MEAN CORPUSCULAR HEMOGLOBIN CONC (BEAKER) (test code = 752) 32.5 GM/DL 32.2-35.5 RED CELL DISTRIBUTION WIDTH (BEAKER) (test code = 412) 16.0 % 11.7-14.4 H PLATELET COUNT (BEAKER) (troy t code = 756) 127 K/CU MM 150-450 L MEAN PLATELET VOLUME (BEAKER ) (test code = 754) 9.6 fL 9.4-12.3 NUCLEATED RED BLOOD CELLS (BEAKER) (test code = 413) 0 /100 WBC 0-0 NEUTROPHILS RELATIVE PERCENT (BEAKER) (test code = 429) 69 % LYMPHOCYTES RELATIVE PERCENT (BEAKER) (test code = 430) 20 % MONOCYTES RELATIVE PERCENT (BEAKER) (test code = 431) 10 % EOSINOPHILS RELATIVE PERCENT (BEAKER) (test code = 432) 1 % BASOPHILS RELATIVE PERCENT (BEAKER) (test code = 437) 1 % NEUTROPHILS ABSOLUTE COUNT (BEAKER) (test code = 670) 2.82 K/ L 1.56-6.13 LYMPHOCYTES ABSOLUTE COUNT (BEAKER) (test code = 414) 0.83 K/ L 1.18-3.74 L MONOCYTES ABSOLUTE COUNT (BE TACOS) (test code = 415) 0.40 K/ L 0.24-0.36 H EOSINOPHILS ABSOLUTE COUNT (BEAKER) (test code = 416) 0.02 K/ L 0.04-0.36 L BASOPHILS ABSOLUTE COUNT (BE TACOS) (test code = 417) 0.02 K/ L 0.01-0.08 IMMATURE GRANULOCYTES-RELATI VE PERCENT (BEAKER) (test code = 2801) 0.20 % 0.00-1.00 ECG 12 [id number] 11:06:17Ventricular Rate 77 BPMAtrial Rate 77 BPMP-R Interval 166 msQRS Duration 88 msQ-T Interval 434 msQTC Calculation(Bazett) 491 msP [place] 25 degreesR [place] -24 degreesT [place] 23 degrees Normal sinus rhythmM inimal voltage criteria for LVH, may be normal variantT wave inversion in V1-V2 consider ischemiaProlonged QTAbnormal ECGWhen compared with ECG of 15-MAY-2025 22:45,Poor R wave progression has improvedConfirmed by MD ELSA, SINDY ([id number]) on 06/04/2025 11:06:13 [facility] [id number] 23:59:46* Test Item Value Reference Range Interpretation Comme nts HIGH SENSITIVITY TROPONIN I (test code = 2635431) 5 pg/ml <14 The Alinity ci High Sensitivity Troponin-I results should be used in conjunction with other diagnostic information such as ECG, clinical observations and information, and patient symptoms to aid in the diagnosis of VA.CT ABDOMEN/PELVIS WITHOUT IV CONTRAST Standard [id number] 23:51:35 TECHNIQUE: CT of the abdomen and pelvis WITHOUT intravenous contrast andWITHOUT oral contrast. Dosemodulation, iterative reconstruction, and/orweight-based adjustment of the mA/kV was utilized to reduce theradiation dose to as low as reasonably achievable. INDICATION: Flank pain, kidney stone suspected. COMPARISON: 05/15/25. FINDINGS: ABSENCE OF INTRAVENOUS CONTRAST DECREASES SENSITIVITY FOR DETECTION OFFOCAL LESIONS AND VASCULAR PATHOLOGY. LOWER THORAX: Unremarkable. HEPATOBILIARY: Contour of the liver is nodular. No focal hepaticlesions. Gallbladder is surgically absent. No biliary ductal di latation.SPLEEN: Spleen is 15.7 cm in length.PANCREAS: No focal masses or ductal dilatation. ADRENALS: No adrenal nodules.KIDNEYS/URETERS: No hydronephrosis, stones, or exophytic masses.PELVIC ORGANS/BLADDER: Unremarkable bladder. Uterus is absent. PERITONEUM/RETROPERITONEUM: No free air or fluid.LYMPH NODES: No lymphadenopathy.VESSELS: Unremarkable. GI TRACT: No distention or wall thickening. Appendix is absent. BONES AND SOFT TISSUES: No acute osseous abnormality. Soft tissues areunremarkable.[facility] IV [id number] 23:51:35 [facility] : 1970 Sex: FTECHNIQUE: CT of the abdomen and pelvis WITHOUT intravenous contrast andWITHOUT oral contrast. Dose modulation, iterative reconstruction, and/orweight-based adjustment of the mA/kV was utilized to reduce theradiation dose to as low as reasonably achievable.INDICATION: Flank pain, kidney stone suspected.COMPARISON: 05/15/25.FINDINGS:ABSENCE OF INTRAVENOUS CONTRAST DECREASES SENSITIVITY FOR DETECTION OFFOCAL LESIONS AND VASCULAR PATHOLOGY.LOWER THORAX: Unremarkable.HEPATOBILIARY: Contour of the liver is nodular. No focal hepaticlesions. Gallbladder is surgically absent. No biliary ductal dilatation.SPLEEN: Spleen is 15.7 cm in length.PANCREAS: No focal masses or ductal dilatation.ADRENALS: No adrenal nodules.KIDNEYS/URETERS: No hydronephrosis, stones, or exophytic masses.PELVIC ORGANS/BLADDER: Unremarkable bladder. Uterus is absent.PERITONEUM/RETROPERITONEUM: No free air orfluid.LYMPH NODES: No lymphadenopathy.VESSELS: Unremarkable.GI TRACT: No distention or wall thickening. Appendix is absent.BONES AND SOFT TISSUES: No acute osseous abnormality. Soft tissues areunremarkable.IMPRESSION:No acute abnormality on CT of the abdomen and pelvis without contrast.Cirrhosis with moderate splenomegaly similar to previous compatible withsequela of portal hypertension.Electronically Signed By: Jonna Marroquin06/03/2025 23:54 CDTWorkstation Name: [id number] chest 1 view portable / [id number] 21:38:09INDICATION: SOB COMPARISON: 03/29/2025 TECHNIQUE: Single frontal view of the chest. FINDINGS: Lungs and pleura: Clear lungs. No effusion. Heart and mediastinum: Normal heart size. Unremarkable mediastinalcontours. Osseous structures: No acute abnormality. Other: None.[facility] HospitalXR CHEST 1 VIEW PORTABLE / BEDSIDE 2025-06-03 21:38:09 [facility] : 1970 Sex: FINDICATION: SOBCOMPARISON: 03/29/2025TECHNIQUE: Single frontal view of the chest.FINDINGS: Lungs and pleura: Clear lungs. No effusion.Heart and mediastinum: Normal heart size. Unremarkable mediastinalcontours.Osseous structures: No acute abnormality.Other: None.IMPRESSION:No acute intrathoracic abnormality.Electronically Signed By: Jonna Marroquin06/03/2025 21:40 CDTWorkstation Name: [id number] SENSITIVITY TROPONIN [id number] 21:31:05* Test Item Value Reference Range Interpretation Comme nts HIGH SENSITIVITY TROPONIN I (test code = 3392065) 6 pg/ml <14 The Alinity ci High Sensitivity Troponin-I results should be used in conjunction with other diagnostic information such as ECG, clinical observations and information, and patient symptoms to aid in the diagnosis of VA.COMPREHENSIVE METABOLIC [id number] 21:29:49* Test Item Value Reference Range Interpretation Comme nts TOTAL PROTEIN (BEAKER) (test code = 770) 7.5 gm/dL 6.4-8.3 Specimen slightl y hemolyzed ALBUMIN (BEAKER) (test code = 1145) 3.4 g/dL 3.1-4.5 Specimen slig htly hemolyzed ALKALINE PHOSPHATASE (BEAKER) (test code = 346) 113 U/L 40-150 BILIRUBIN TOTAL (BEAKER) (test code = 377) 3.8 mg/dL 0.3-1.2 H Specimen slightl y hemolyzed SODIUM (BEAKER) (test code = 381) 139 meq/L 136-145 POTASSIUM (BEAKER) (test code = 379) 3.2 meq/L 3.4-5.1 L Slightly hemol yzed CHLORIDE (BEAKER) (test code = 382) 103 meq/L 98-107 CO2 (BEAKER) (test code = 355) 26 meq/L 22-29 BLOOD UREA NITROGEN (BEAKER) (test code = 354) 6 mg/dL 10-20 L CREATININE (BEAKER) (test code = 358) 0.77 mg/dL 0.50-1.10 Specimen slightl y hemolyzed GLUCOSE RANDOM (BEAKER) (test code = 652) 105 mg/dL 70-105 CALCIUM (BEAKER) (test code = 697) 9.1 mg/dL 8.4-10.2 AST (SGOT) (BEAKER) (test code = 353) 51 U/L 11-34 H The result is charmaine choi falsely elevated and considered unreliable due to hemolysis. Please interpret with caution. Repeat testing on a non-hemolyzed specimen is recommended. ALT (SGPT) (BEAKER) (test code = 347) 11 U/L <34 Specimen slightl y hemolyzed EGFR (BEAKER) (test code = 1092) 91 mL/min/1.73 sq m Interpretation of eG FR values Stage Description Result G1 Normal or high >=90 G2 Mildly decreased 60-89 G3a Mildly to moderately 45-59 G3b Moderately to severely 30-44 G4 Severly decreased 15-29 G5 Kidney failure <15Reported eGFR is based on the CKD-EPI 2020 equation that does not use a race coefficientEstimated GFR is not as accurate as Creatinine Clearance in predicting glomerular filtration rate. Estimated GFR is not applicable for dialysis patients Specimen slightly ictericCBC W/PLT COUNT & AUTO [id number] 20:40:40 * Test Item Value Reference Range Interpretation Comme nts WHITE BLOOD CELL COUNT (BEAK ER) (test code = 775) 4.6 K/ L 3.5-10.5 RED BLOOD CELL COUNT (BEAKER ) (test code = 761) 3.72 M/ L 3.93-5.22 L HEMOGLOBIN (BEAKER) (test co de = 410) 12.2 GM/DL 11.2-15.7 HEMATOCRIT (BEAKER) (test co de = 411) 36.2 % 34.1-44.9 MEAN CORPUSCULAR VOLUME (LUCAS KER) (test code = 753) 97 fL 79-95 H MEAN CORPUSCULAR HEMOGLOBIN (BEAKER) (test code = 751) 32.8 pg 25.6-32.2 H MEAN CORPUSCULAR HEMOGLOBIN CONC (BEAKER) (test code = 752) 33.7 GM/DL 32.2-35.5 RED CELL DISTRIBUTION WIDTH (BEAKER) (test code = 412) 14.3 % 11.7-14.4 PLATELET COUNT (BEAKER) (troy t code = 756) 143 K/CU MM 150-450 L MEAN PLATELET VOLUME (BEAKER ) (test code = 754) 10.4 fL 9.4-12.3 NUCLEATED RED BLOOD CELLS (BEAKER) (test code = 413) 0 /100 WBC 0-0 NEUTROPHILS RELATIVE PERCENT (BEAKER) (test code = 429) 57 % LYMPHOCYTES RELATIVE PERCENT (BEAKER) (test code = 430) 26 % MONOCYTES RELATIVE PERCENT (BEAKER) (test code = 431) 13 % EOSINOPHILS RELATIVE PERCENT (BEAKER) (test code = 432) 3 % BASOPHILS RELATIVE PERCENT (BEAKER) (test code = 437) 1 % NEUTROPHILS ABSOLUTE COUNT (BEAKER) (test code = 670) 2.59 K/ L 1.56-6.13 LYMPHOCYTES ABSOLUTE COUNT (BEAKER) (test code = 414) 1.17 K/ L 1.18-3.74 L MONOCYTES ABSOLUTE COUNT (BE TACOS) (test code = 415) 0.59 K/ L 0.24-0.36 H EOSINOPHILS ABSOLUTE COUNT (BEAKER) (test code = 416) 0.15 K/ L 0.04-0.36 BASOPHILS ABSOLUTE COUNT (BE TACOS) (test code = 417) 0.04 K/ L 0.01-0.08 IMMATURE GRANULOCYTES-RELATI VE PERCENT (BEAKER) (test code = 2801) 0.20 % 0.00-1.00 Urinalysis w/Microscopic + Reflex to [id number] 19:42:21* Test Item Value Reference Range Interpretation Comme nts Color, UA (test code = 5778-6) Yellow Clarity, UA (test code = 5767-9) Hazy Specific Hathaway, UA (test code = 5811-5) 1.016 1.001-1.035 pH, UA (test code = 5803-2) 6.5 5.0-8.0 Protein, UA (test code = 54110-9) Negative Negative Glucose, UA (test code = 365) Negative Negative Ketones, UA (test code = 2514-8) Negative Negative Bilirubin, UA (test code = 73592-8) Negative Negative Blood, UA (test code = 36676-7) Negative Negative Nitrite, UA (test code = 5802-4) Negative Negative Leukocytes, UA (test code = 5799-2) Small Negative A Urobilinogen, UA (test code = 31896-1) 12 0.2-1.0 H RBC, UA (test code = 72942-2) 2 See_Comment [Automated message] The system which generated this result transmitted reference range: /HPF. The reference range was not used to interpret this result as normal/abnormal. WBC, UA (test code = 5821-4) 3 See_Comment [Automated message] The system which generated this result transmitted reference range: /HPF. The reference range was not used to interpret this result as normal/abnormal. Bacteria, UA (test code = 21107-4) Rare Squam Epithel, UA (test code = 58803-6) 2 See_Comment [Automated message] The system which generated this result transmitted reference range: /HPF. The reference range was not used to interpret this result as normal/abnormal. Specimen Source (test code = 2795) BLANCA (test code = BLANCA) Insurance Office Manager ID - [auto]Insurance Office Manager ID - tech Lab Interpretation (test code = 98745-4) Abnormal [facility] URINE [id number] 19:42:21 * Test Item Value Reference Range Interpretation Comme nts COLOR (BEAKER) (test code = 470) Yellow CLARITY (BEAKER) (test code = 469) Hazy SPECIFIC GRAVITY UA (BEAKER) (test code = 468) 1.016 1.001-1.035 PH UA (BEAKER) (test code = 467) 6.5 5.0-8.0 PROTEIN UA (BEAKER) (test co de = 464) Negative Negative GLUCOSE UA (BEAKER) (test co de = 365) Negative Negative KETONES UA (BEAKER) (test co de = 371) Negative Negative BILIRUBIN UA (BEAKER) (test code = 462) Negative Negative BLOOD UA (BEAKER) (test code = 461) Negative Negative NITRITE UA (BEAKER) (test co de = 465) Negative Negative LEUKOCYTE ESTERASE UA (BEAKE R) (test code = 466) Small Negative A UROBILINOGEN UA (BEAKER) (te st code = 463) 12 0.2-1.0 H RBC UA (BEAKER) (test code = 519) 2 /HPF WBC UA (BEAKER) (test code = 520) 3 /HPF BACTERIA (BEAKER) (test code = 517) Rare SQUAMOUS EPITHELIAL (BEAKER) (test code = 516) 2 /HPF SOURCE(BEAKER) (test code = 2795) Insurance Office Manager ID - [auto]Insurance Office Manager ID - [id number] 00:00:00Ordered by an unspecified provider.[facility] WITH [facility] CONTRAST Standard [id number] 00:16:58EXAM/TECHNIQUE: CT of the abdomen and pelvis with IV contrast. 3Drendering was not performed. Dose modulation, iterative reconstruction,and/or weight based adjustment of the mA/kV was utilized to reduce theradiation dose to as low as reasonably achievable. INDICATION: Abdominal pain, acute, nonlocalized COMPARISON: CT body from 05/01/2025. FINDINGS: Lower thorax: No focal consolidation or suspicious pulmonary nodule. Thevisualized heart is unremarkable. Liver: Slightly irregular contour of the liver. The main portal vein ispatent. Biliary: The gallbladder is surgically absent. Unremarkable appearanceof the biliary ducts. Spleen: Splenomegaly measuring 14 cm in AP dimension. Pancreas: Unremarkable. Adrenals: Unremarkable. Kidneys: Symmetric bilateral nephrograms. No hydronephrosis. No focalrenal mass. Bowel: Normal appearance of the colon. The appendix is surgicallyabsent. The small bowel is normal in appearance without findings ofobstruction. Mural thickening of the stomach. Lymph nodes: No lymphadenopathy by size criteria. Mesentery: No ascites. No pneumoperitoneum. Mild mesenteric ed jason. Pelvis: The uterus is not visualized, possibly surgically absent. Nosuspicious adnexal mass. Unremarkable appearance of the bladder. Vessels: Splenic varices are present. Osseous: No acute osseous process. No suspicious osseous lesions.[facility] WITH [facility]AST 2025-05-16 00:16:58 [facility] : 1970 Sex: FEXAM/TECHNIQUE: CT of the abdomen and pelvis with IV contrast. 3Drendering was not performed. Dose modulation, iterative reconstruction,and/or weight based adjustment of the mA/kV wasutilized to reduce theradiation dose to as low as reasonably achievable.INDICATION: Abdominal pain,acute, nonlocalizedCOMPARISON: CT body from 05/01/2025.FINDINGS:Lower thorax: No focal consolidation or suspicious pulmonary nodule. Thevisualized heart is unremarkable.Liver: Slightly irregular contour of the liver. The main portal vein ispatent.Biliary: The gallbladder is surgically absent. Unremarkable appearanceof the biliary ducts.Spleen: Splenomegaly measuring 14 cm in AP dimension.Pancreas: Unremarkable.Adrenals: Unremarkable.Kidneys: Symmetric bilateral nephrograms. No hydronephrosis. No f ocalrenal mass.Bowel: Normal appearance of the colon. The appendix is surgicallyabsent. The small bowel is normal in appearance without findings ofobstruction. Mural thickening of the stomach.Lymph nodes: No lymphadenopathy by size criteria.Mesentery: No ascites. No pneumoperitoneum. Mild mesenteric edema.Pelvis: The uterus is not visualized, possibly surgically absent. Nosuspicious adnexal mass.Unremarkable appearance of the bladder.Vessels: Splenic varices are present.Osseous: No acute osseous process. No suspicious osseous lesions.IMPRESSION:1. Cirrhotic liver morphology with splenomegalyand mild mesentericedema.2. Mural thickening of the stomach may represent gastritis or venouscongestion.Electronically Signed By: William Lara05/16/2025 00:19 CDTWorkstation Name: [id number] SENSITIVITY TROPONIN [id number] 23:15:12 * Test Item Value Reference Range Interpretation Comme nts HIGH SENSITIVITY TROPONIN I (test code = 0273036) < pg/ml <14 The Alinity ci High Sensitivity Troponin-I results should be used in conjunction with other diagnostic information such as ECG, clinical observations and information, and patient symptoms to aid in the diagnosis of VA.HEPATIC FUNCTION [id number] 23:05:13* Test Item Value Reference Range Interpretation Comme nts TOTAL PROTEIN (BEAKER) (test code = 770) 7.5 gm/dL 6.4-8.3 ALBUMIN (BEAKER) (test code = 1145) 3.4 g/dL 3.1-4.5 BILIRUBIN TOTAL (BEAKER) (te st code = 377) 4.7 mg/dL 0.3-1.2 H BILIRUBIN DIRECT (BEAKER) (t est code = 706) 1.7 mg/dL 0.1-0.5 H ALKALINE PHOSPHATASE (BEAKER ) (test code = 346) 99 U/L 40-150 AST (SGOT) (BEAKER) (test co de = 353) 42 U/L 11-34 H ALT (SGPT) (BEAKER) (test co de = 347) 11 U/L <34 Specimen moderately ictericBASIC METABOLIC [id number] 23:04:13* Test Item Value Reference Range Interpretation Comme nts SODIUM (BEAKER) (test code = 381) 135 meq/L 136-145 L POTASSIUM (BEAKER) (test code = 379) 3.2 meq/L 3.4-5.1 L CHLORIDE (BEAKER) (test code = 382) 103 meq/L 98-107 CO2 (BEAKER) (test code = 355) 25 meq/L 22-29 BLOOD UREA NITROGEN (BEAKER) (test code = 354) 5 mg/dL 10-20 L CREATININE (BEAKER) (test code = 358) 0.71 mg/dL 0.50-1.10 GLUCOSE RANDOM (BEAKER) (test code = 652) 96 mg/dL 70-105 CALCIUM (BEAKER) (test code = 697) 9.1 mg/dL 8.4-10.2 EGFR (BEAKER) (test code = 1092) 100 mL/min/1.73 sq m Interpretation of eG FR values Stage Description Result G1 Normal or high >=90 G2 Mildly decreased 60-89 G3a Mildly to moderately 45-59 G3b Moderately to severely 30-44 G4 Severly decreased 15-29 G5 Kidney failure <15Reported eGFR is based on the CKD-EPI 2020 equation that does not use a race coefficientEstimated GFR is not as accurate as Creatinine Clearance in predicting glomerular filtration rate. Estimated GFR is not applicable for dialysis patients Specimen moderately [id number] 23:04:13* Test Item Value Reference Range Interpretation Comme nts LIPASE (BEAKER) (test code = 749) 25 U/L <=60 Specimen moderately ictericPROTHROMBIN TIME/[id number] 22:53:29* Test Item Value Reference Range Interpretation Comme nts PROTIME (BEAKER) (test code = 759) 18.4 seconds 9.9-12.7 H INR (BEAKER) (test code = 370) 1.64 See Comment RECOMMENDED COUMADIN/WARFARIN INR THERAPY RANGESSTANDARD DOSE: 2.0 - 3.0 Includes: PROPHYLAXIS for venous thrombosis, systemic embolization; TREATMENT for venous thrombosis and/or pulmonary embolus.HIGH RISK: Target INR is 2.5-3.5 for patients with mechanical heart valves.Insurance Office Manager ID -ECG/EKG Interpretation 2025-05-15 22:51:18Michaemariela Hatch MD 05/16/2025 12:38 AMECG/EKG Interpretation Date/Time: 05/15/2025 10:51 PM Performed by: Lance Hatch MDAuthorized by: Lance Hatch MD The ECG was interpreted by ED physician.This ECG was not compared with previous ECG(s).The ECG is interpreted as sinus rhythm. Heart rate is 70 BPM.Conduction: conduction normal. ST segments normal. T waves normal. T- wave inversion in lead(s) III. [place] is normal. Clinical Impression: normal ECGECG reviewed and does not meet STEMI criteria.[facility] W/PLT COUNT & AUTO [id number] 22:44:51* Test Item Value Reference Range Interpretation Comme nts WHITE BLOOD CELL COUNT (BEAK ER) (test code = 775) 5.5 K/ L 3.5-10.5 RED BLOOD CELL COUNT (BEAKER ) (test code = 761) 3.84 M/ L 3.93-5.22 L HEMOGLOBIN (BEAKER) (test co de = 410) 12.6 GM/DL 11.2-15.7 HEMATOCRIT (BEAKER) (test co de = 411) 37.6 % 34.1-44.9 MEAN CORPUSCULAR VOLUME (LUCAS KER) (test code = 753) 98 fL 79-95 H MEAN CORPUSCULAR HEMOGLOBIN (BEAKER) (test code = 751) 32.8 pg 25.6-32.2 H MEAN CORPUSCULAR HEMOGLOBIN CONC (BEAKER) (test code = 752) 33.5 GM/DL 32.2-35.5 RED CELL DISTRIBUTION WIDTH (BEAKER) (test code = 412) 13.6 % 11.7-14.4 PLATELET COUNT (BEAKER) (troy t code = 756) 144 K/CU MM 150-450 L MEAN PLATELET VOLUME (BEAKER ) (test code = 754) 10.4 fL 9.4-12.3 NUCLEATED RED BLOOD CELLS (BEAKER) (test code = 413) 0 /100 WBC 0-0 NEUTROPHILS RELATIVE PERCENT (BEAKER) (test code = 429) 60 % LYMPHOCYTES RELATIVE PERCENT (BEAKER) (test code = 430) 25 % MONOCYTES RELATIVE PERCENT (BEAKER) (test code = 431) 11 % EOSINOPHILS RELATIVE PERCENT (BEAKER) (test code = 432) 3 % BASOPHILS RELATIVE PERCENT (BEAKER) (test code = 437) 1 % NEUTROPHILS ABSOLUTE COUNT (BEAKER) (test code = 670) 3.30 K/ L 1.56-6.13 LYMPHOCYTES ABSOLUTE COUNT (BEAKER) (test code = 414) 1.38 K/ L 1.18-3.74 MONOCYTES ABSOLUTE COUNT (BE TACOS) (test code = 415) 0.63 K/ L 0.24-0.36 H EOSINOPHILS ABSOLUTE COUNT (BEAKER) (test code = 416) 0.17 K/ L 0.04-0.36 BASOPHILS ABSOLUTE COUNT (BE TACOS) (test code = 417) 0.05 K/ L 0.01-0.08 IMMATURE GRANULOCYTES-RELATI VE PERCENT (BEAKER) (test code = 2801) 0.20 % 0.00-1.00 ALPHA FETOPROTEIN (AFP), TUMOR [id number] 14:57:53* Test Item Value Reference Range Interpretation Comme nts ALPHA-FETOPROTEIN (BEAKER) ( test code = 1094) 6.5 ng/mL 0.9-8.8 COMPREHENSIVE METABOLIC [id number] 14:45:38* Test Item Value Reference Range Interpretation Comme nts TOTAL PROTEIN (BEAKER) (test code = 770) 7.4 gm/dL 6.4-8.3 ALBUMIN (BEAKER) (test code = 1145) 3.2 g/dL 3.1-4.5 ALKALINE PHOSPHATASE (BEAKER) (test code = 346) 97 U/L 40-150 BILIRUBIN TOTAL (BEAKER) (test code = 377) 3.5 mg/dL 0.3-1.2 H SODIUM (BEAKER) (test code = 381) 138 meq/L 136-145 POTASSIUM (BEAKER) (test code = 379) 3.1 meq/L 3.4-5.1 L CHLORIDE (BEAKER) (test code = 382) 105 meq/L 98-107 CO2 (BEAKER) (test code = 355) 25 meq/L 22-29 BLOOD UREA NITROGEN (BEAKER) (test code = 354) 5 mg/dL 10-20 L CREATININE (BEAKER) (test code = 358) 0.66 mg/dL 0.50-1.10 GLUCOSE RANDOM (BEAKER) (test code = 652) 92 mg/dL 70-105 CALCIUM (BEAKER) (test code = 697) 8.9 mg/dL 8.4-10.2 AST (SGOT) (BEAKER) (test code = 353) 45 U/L 11-34 H ALT (SGPT) (BEAKER) (test code = 347) 11 U/L <34 EGFR (BEAKER) (test code = 1092) 104 mL/min/1.73 sq m Interpretation of eG FR values Stage Description Result G1 Normal or high >=90 G2 Mildly decreased 60-89 G3a Mildly to moderately 45-59 G3b Moderately to severely 30-44 G4 Severly decreased 15-29 G5 Kidney failure <15Reported eGFR is based on the CKD-EPI 2020 equation that does not use a race coefficientEstimated GFR is not as accurate as Creatinine Clearance in predicting glomerular filtration rate. Estimated GFR is not applicable for dialysis patients Specimen moderately [id number] 14:44:47* Test Item Value Reference Range Interpretation Comme nts MAGNESIUM (BEAKER) (test cod e = 627) 1.9 mg/dL 1.6-2.6 BILIRUBIN, [id number] 14:44:47* Test Item Value Reference Range Interpretation Comme nts BILIRUBIN DIRECT (BEAKER) (t est code = 706) 1.4 mg/dL 0.1-0.5 H CBC W/PLT COUNT & AUTO [id number] 14:26:25* Test Item Value Reference Range Interpretation Comme nts WHITE BLOOD CELL COUNT (BEAK ER) (test code = 775) 4.6 K/ L 3.5-10.5 RED BLOOD CELL COUNT (BEAKER ) (test code = 761) 3.81 M/ L 3.93-5.22 L HEMOGLOBIN (BEAKER) (test co de = 410) 12.5 GM/DL 11.2-15.7 HEMATOCRIT (BEAKER) (test co de = 411) 37.9 % 34.1-44.9 MEAN CORPUSCULAR VOLUME (LUCAS KER) (test code = 753) 100 fL 79-95 H MEAN CORPUSCULAR HEMOGLOBIN (BEAKER) (test code = 751) 32.8 pg 25.6-32.2 H MEAN CORPUSCULAR HEMOGLOBIN CONC (BEAKER) (test code = 752) 33.0 GM/DL 32.2-35.5 RED CELL DISTRIBUTION WIDTH (BEAKER) (test code = 412) 13.7 % 11.7-14.4 PLATELET COUNT (BEAKER) (troy t code = 756) 143 K/CU MM 150-450 L MEAN PLATELET VOLUME (BEAKER ) (test code = 754) 10.7 fL 9.4-12.3 NUCLEATED RED BLOOD CELLS (BEAKER) (test code = 413) 0 /100 WBC 0-0 NEUTROPHILS RELATIVE PERCENT (BEAKER) (test code = 429) 63 % LYMPHOCYTES RELATIVE PERCENT (BEAKER) (test code = 430) 22 % MONOCYTES RELATIVE PERCENT (BEAKER) (test code = 431) 11 % EOSINOPHILS RELATIVE PERCENT (BEAKER) (test code = 432) 3 % BASOPHILS RELATIVE PERCENT (BEAKER) (test code = 437) 1 % NEUTROPHILS ABSOLUTE COUNT (BEAKER) (test code = 670) 2.90 K/ L 1.56-6.13 LYMPHOCYTES ABSOLUTE COUNT (BEAKER) (test code = 414) 0.99 K/ L 1.18-3.74 L MONOCYTES ABSOLUTE COUNT (BE TACOS) (test code = 415) 0.51 K/ L 0.24-0.36 H EOSINOPHILS ABSOLUTE COUNT (BEAKER) (test code = 416) 0.13 K/ L 0.04-0.36 BASOPHILS ABSOLUTE COUNT (BE TACOS) (test code = 417) 0.04 K/ L 0.01-0.08 IMMATURE GRANULOCYTES-RELATI VE PERCENT (BEAKER) (test code = 2801) 0.20 % 0.00-1.00 PROTHROMBIN [id number] 14:24:42* Test Item Value Reference Range Interpretation Comme nts PROTIME (BEAKER) (test code = 759) 17.9 seconds 9.9-12.7 H INR (BEAKER) (test code = 370) 1.60 See Comment RECOMMENDED COUMADIN/WARFARIN INR THERAPY RANGESSTANDARD DOSE: 2.0 - 3.0 Includes: PROPHYLAXIS for venous thrombosis, systemic embolization; TREATMENT for venous thrombosis and/or pulmonary embolus.HIGH RISK: Target INR is 2.5-3.5 for patients with mechanical heart valves.Insurance Office Manager ID -BLOOD [id number] 19:02:08* Test Item Value Reference Range Interpretation Comme nts CULTURE (MANNY) (test code = 1095) No growth in 5 days The specimen volume collected for this blood culture was below the optimum (10 mL per bottle or 20 mL total). Use of lower volumes may adversely affect recovery and/or detection times of some organisms.BLOOD [id number] 19:02:08* Test Item Value Reference Range Interpretation Comme nts CULTURE (МАРИНАAKER) (test code = 1095) No growth in 5 days The specimen volume collected for this blood culture was below the optimum (10 mL per bottle or 20 mL total). Use of lower volumes may adversely affect recovery and/or detection times of some organisms.US abdomen [id number] 21:25:28EXAM: Limited abdominal ultrasound INDICATION: ABDOMINAL PAINEMESIS COMPARISON: None. TECHNIQUE: Casarez scale sonographic evaluation of the four quadrants ofthe abdomen was performed. FINDINGS/[facility] [id number] 21:25:28 [facility] CHICHIHAILEY HACKETT : 1970 Sex: FEXAM: Limited abdominal ultrasoundINDICATION: ABDOMINAL PAINEMESISCOMPARISON: None.TECHNIQUE: Casarez scale sonographic evaluation of the four quadrants ofthe abdomen was performed.FINDINGS/IMPRESSION:No ascites, insufficient for paracentesis to be safe or of meaningfultherapeutic benefit.Electronically Signed By: Alejo Cordoba05/03/2025 21:27 CDTWorkstation Name: [id number] METABOLIC [id number] 06:30:51* Test Item Value Reference Range Interpretation Comme nts SODIUM (BEAKER) (test code = 381) 136 meq/L 136-145 POTASSIUM (BEAKER) (test code = 379) 3.6 meq/L 3.4-5.1 CHLORIDE (BEAKER) (test code = 382) 105 meq/L 98-107 CO2 (BEAKER) (test code = 355) 26 meq/L 22-29 BLOOD UREA NITROGEN (BEAKER) (test code = 354) 6 mg/dL 10-20 L CREATININE (BEAKER) (test code = 358) 0.63 mg/dL 0.50-1.10 GLUCOSE RANDOM (BEAKER) (test code = 652) 94 mg/dL 70-105 CALCIUM (BEAKER) (test code = 697) 8.3 mg/dL 8.4-10.2 L EGFR (BEAKER) (test code = 1092) 105 mL/min/1.73 sq m Interpretation of eG FR values Stage Description Result G1 Normal or high >=90 G2 Mildly decreased 60-89 G3a Mildly to moderately 45-59 G3b Moderately to severely 30-44 G4 Severly decreased 15-29 G5 Kidney failure <15Reported eGFR is based on the CKD-EPI 2020 equation that does not use a race coefficientEstimated GFR is not as accurate as Creatinine Clearance in predicting glomerular filtration rate. Estimated GFR is not applicable for dialysis patients Specimen slightly ictericCBC (HEMOGRAM ONLY)[id number] 06:10:41* Test Item Value Reference Range Interpretation Comme nts WHITE BLOOD CELL COUNT (BEAK ER) (test code = 775) 2.8 K/ L 3.5-10.5 L RED BLOOD CELL COUNT (BEAKER ) (test code = 761) 3.22 M/ L 3.93-5.22 L HEMOGLOBIN (BEAKER) (test co de = 410) 10.9 GM/DL 11.2-15.7 L HEMATOCRIT (BEAKER) (test co de = 411) 32.6 % 34.1-44.9 L MEAN CORPUSCULAR VOLUME (LUCAS KER) (test code = 753) 101 fL 79-95 H MEAN CORPUSCULAR HEMOGLOBIN (BEAKER) (test code = 751) 33.9 pg 25.6-32.2 H MEAN CORPUSCULAR HEMOGLOBIN CONC (BEAKER) (test code = 752) 33.4 GM/DL 32.2-35.5 RED CELL DISTRIBUTION WIDTH (BEAKER) (test code = 412) 13.2 % 11.7-14.4 PLATELET COUNT (BEAKER) (troy t code = 756) 122 K/CU MM 150-450 L MEAN PLATELET VOLUME (BEAKER ) (test code = 754) 10.4 fL 9.4-12.3 NUCLEATED RED BLOOD CELLS (BEAKER) (test code = 413) 0 /100 WBC 0-0 BASIC METABOLIC [id number] 06:41:19* Test Item Value Reference Range Interpretation Comme nts SODIUM (BEAKER) (test code = 381) 135 meq/L 136-145 L POTASSIUM (BEAKER) (test code = 379) 3.0 meq/L 3.4-5.1 L Specimen slightl y hemolyzed CHLORIDE (BEAKER) (test code = 382) 107 meq/L 98-107 CO2 (BEAKER) (test code = 355) 24 meq/L 22-29 BLOOD UREA NITROGEN (BEAKER) (test code = 354) 7 mg/dL 10-20 L CREATININE (BEAKER) (test code = 358) 0.59 mg/dL 0.50-1.10 Specimen slightl y hemolyzed GLUCOSE RANDOM (BEAKER) (test code = 652) 97 mg/dL 70-105 CALCIUM (BEAKER) (test code = 697) 7.7 mg/dL 8.4-10.2 L EGFR (BEAKER) (test code = 1092) 106 mL/min/1.73 sq m Interpretation of eG FR values Stage Description Result G1 Normal or high >=90 G2 Mildly decreased 60-89 G3a Mildly to moderately 45-59 G3b Moderately to severely 30-44 G4 Severly decreased 15-29 G5 Kidney failure <15Reported eGFR is based on the CKD-EPI 2020 equation that does not use a race coefficientEstimated GFR is not as accurate as Creatinine Clearance in predicting glomerular filtration rate. Estimated GFR is not applicable for dialysis patients HEPATIC FUNCTION [id number] 06:11:05* Test Item Value Reference Range Interpretation Comme nts TOTAL PROTEIN (BEAKER) (test code = 770) 5.6 gm/dL 6.4-8.3 L Specimen sligh tly hemolyzed ALBUMIN (BEAKER) (test code = 1145) 2.4 g/dL 3.1-4.5 L Specimen slightl y hemolyzed BILIRUBIN TOTAL (BEAKER) (test code = 377) 2.0 mg/dL 0.3-1.2 H Specimen slightl y hemolyzed BILIRUBIN DIRECT (BEAKER) (test code = 706) 0.8 mg/dL 0.1-0.5 H Specimen slightl y hemolyzed ALKALINE PHOSPHATASE (BEAKER) (test code = 346) 66 U/L 40-150 AST (SGOT) (BEAKER) (test code = 353) 33 U/L 11-34 Specimen sligh tly hemolyzed ALT (SGPT) (BEAKER) (test code = 347) 9 U/L <34 Specimen sligh tly hemolyzed [id number] 06:07:59* Test Item Value Reference Range Interpretation Comme nts MAGNESIUM (BEAKER) (test code = 627) 1.4 mg/dL 1.6-2.6 L Specimen sligh tly hemolyzed PROTHROMBIN TIME/[id number] 05:47:40* Test Item Value Reference Range Interpretation Comme nts PROTIME (BEAKER) (test code = 759) 15.7 seconds 9.9-12.7 H INR (BEAKER) (test code = 370) 1.40 See Comment RECOMMENDED COUMADIN/WARFARIN INR THERAPY RANGESSTANDARD DOSE: 2.0 - 3.0 Includes: PROPHYLAXIS for venous thrombosis, systemic embolization; TREATMENT for venous thrombosis and/or pulmonary embolus.HIGH RISK: Target INR is 2.5-3.5 for patients with mechanical heart valves.Insurance Office Manager ID -CBC W/PLT COUNT & AUTO [id number] 05:33:30* Test Item Value Reference Range Interpretation Comme nts WHITE BLOOD CELL COUNT (BEAK ER) (test code = 775) 3.9 K/ L 3.5-10.5 RED BLOOD CELL COUNT (BEAKER ) (test code = 761) 3.13 M/ L 3.93-5.22 L HEMOGLOBIN (BEAKER) (test co de = 410) 10.6 GM/DL 11.2-15.7 L HEMATOCRIT (BEAKER) (test co de = 411) 31.9 % 34.1-44.9 L MEAN CORPUSCULAR VOLUME (LUCAS KER) (test code = 753) 102 fL 79-95 H MEAN CORPUSCULAR HEMOGLOBIN (BEAKER) (test code = 751) 33.9 pg 25.6-32.2 H MEAN CORPUSCULAR HEMOGLOBIN CONC (BEAKER) (test code = 752) 33.2 GM/DL 32.2-35.5 RED CELL DISTRIBUTION WIDTH (BEAKER) (test code = 412) 13.3 % 11.7-14.4 PLATELET COUNT (BEAKER) (troy t code = 756) 127 K/CU MM 150-450 L MEAN PLATELET VOLUME (BEAKER ) (test code = 754) 10.9 fL 9.4-12.3 NUCLEATED RED BLOOD CELLS (BEAKER) (test code = 413) 0 /100 WBC 0-0 NEUTROPHILS RELATIVE PERCENT (BEAKER) (test code = 429) 62 % LYMPHOCYTES RELATIVE PERCENT (BEAKER) (test code = 430) 24 % MONOCYTES RELATIVE PERCENT (BEAKER) (test code = 431) 9 % EOSINOPHILS RELATIVE PERCENT (BEAKER) (test code = 432) 4 % BASOPHILS RELATIVE PERCENT (BEAKER) (test code = 437) 1 % NEUTROPHILS ABSOLUTE COUNT (BEAKER) (test code = 670) 2.38 K/ L 1.56-6.13 LYMPHOCYTES ABSOLUTE COUNT (BEAKER) (test code = 414) 0.92 K/ L 1.18-3.74 L MONOCYTES ABSOLUTE COUNT (BE TACOS) (test code = 415) 0.36 K/ L 0.24-0.36 EOSINOPHILS ABSOLUTE COUNT (BEAKER) (test code = 416) 0.16 K/ L 0.04-0.36 BASOPHILS ABSOLUTE COUNT (BE TACOS) (test code = 417) 0.02 K/ L 0.01-0.08 IMMATURE GRANULOCYTES-RELATI VE PERCENT (BEAKER) (test code = 2801) 0.50 % 0.00-1.00 US ABDOMEN [id number] 23:10:37 [facility] : 1970 Sex: FTECHNIQUE: Grayscale ultrasound of the right abdomen.INDICATION: ABDOMINAL PAINEMESI S.COMPARISON: 04/10/2025.FINDINGS:MIDLINE VASCULATURE: The visualized inferior vena cava is patent. Portalvein is patent. The maximum visualized aortic diameter is 2.4 cm.LIVER: Smooth liver contour. No focal lesions. The main portal veinmeasures 1.1 cm.BILIARY:Gallbladder: Gallbladder is surgicallyabsent. Common bile duct measures0.7 cm, slightly distended compatible with postcholecystectomy reservoireffect. No intrahepatic biliary ductal dilatation.PANCREAS: Incompletely visualized due to overlying bowel gas.PERITONEUM: No free fluid.RIGHT KIDNEY: Normal in size. No hydronephrosis. No sonographicallyevident solid mass lesion.IMPRESSION:No acute abnormality. No finding to account for abdominal pain.Post surgical changes status post postcholecystectomy.Electronically Signed By: Jonna Marroquin05/01/2025 23:12 CDTWorkstation Name: [id number] ABDOMEN/PELVIS WITHOUT IV [id number] 21:49:56[facility] : 1970 Sex: F EXAMINATION: CT ABDOMEN/PELVIS WITHOUT IV CONTRAST TECHNIQUE: CT of the abdomen andpelvis without intravenous contrast.Dose modulation, iterative reconstruction, and/or weight-basedadjustment of the mA/kV was utilized to reduce the radiation dose to aslow as reasonably achievable.IN DICATION: Unlisted Reason for ExamAbdominal Pain and DistentionCOMPARISON: March 26, 2025FINDINGS:Statement: None.Lower chest: Unremarkable.Hepatobiliary: .Cirrhotic appearance: Nodular hepatic contour, withvolume redistribution. No focal hepatic lesions. Status post cholecystectomy. Mild extrahepatic biliary duct dilatation,can be seen sequel of cholecystectomy, 10 mm. .Spleen: The spleen is unremarkable..Pancreas: The pancreas is unremarkable.Adrenals: RIGHT adrenal glands unremarkable. LEFT adrenal gland 1.8 cmindeterminate nodule.Genitourinary: No contour deforming abnormalities. No hydronephrosis. Noradiopaque calculi.The urinary bladder is unremarkable.Gastrointestinal: No gastric abnormalities. Normal bowel caliber.Reactive duodenal wall thickening. Second part of duodenum diverticulumnoted..Lymphatics: No enlarged or abnormal- appearing lymph nodes.Vascular: Abdominal aorta is normal in caliber.Peritoneum/other:No intraperitoneal free gas. No intraperitoneal freefluid. Unchanged subhepatic and mesenteric root stranding and edemaextending to the RIGHT anterior pararenal space, with prominent marginallymph nodes, in brock hepatis, portacaval, celiac and peripancreaticregionMSK/body wall: No concerning bony lesion is identified.IMPRESSION:1. No acute abdominopelvic abnormalities.2. Unchanged peripancreatic, RIGHT hepatic and anterior pararenal fatstranding involving the rootof the mesentery, could be postoperativeversus residual/ongoing pancreatitis, with reactive duodenitis andregional prominent lymph nodes.3. Cirrhotic appearing liver. Moderate splenomegaly.4. LEFT ind eterminate adrenal gland nodule. Kindly consider outpatientCT adrenal gland protocol assessment forcomplete characterization.RECOMMENDATIONS: No additional recommendations.Electronically Signed By: Richy Boston05/01/2025 21:52 CDTWorkstation Name: [id number] FUNCTION [id number] 18:14:31* Test Item Value Reference Range Interpretation Comme nts TOTAL PROTEIN (BEAKER) (test code = 770) 7.6 gm/dL 6.4-8.3 ALBUMIN (BEAKER) (test code = 1145) 3.3 g/dL 3.1-4.5 BILIRUBIN TOTAL (BEAKER) (te st code = 377) 3.0 mg/dL 0.3-1.2 H BILIRUBIN DIRECT (BEAKER) (t est code = 706) 1.2 mg/dL 0.1-0.5 H ALKALINE PHOSPHATASE (BEAKER ) (test code = 346) 89 U/L 40-150 AST (SGOT) (BEAKER) (test co de = 353) 43 U/L 11-34 H ALT (SGPT) (BEAKER) (test co de = 347) 12 U/L <34 Specimen slightly ictericBASIC METABOLIC [id number] 18:13:05* Test Item Value Reference Range Interpretation Comme nts SODIUM (BEAKER) (test code = 381) 135 meq/L 136-145 L POTASSIUM (BEAKER) (test code = 379) 3.2 meq/L 3.4-5.1 L CHLORIDE (BEAKER) (test code = 382) 101 meq/L 98-107 CO2 (BEAKER) (test code = 355) 26 meq/L 22-29 BLOOD UREA NITROGEN (BEAKER) (test code = 354) 6 mg/dL 10-20 L CREATININE (BEAKER) (test code = 358) 0.82 mg/dL 0.50-1.10 GLUCOSE RANDOM (BEAKER) (test code = 652) 83 mg/dL 70-105 CALCIUM (BEAKER) (test code = 697) 9.1 mg/dL 8.4-10.2 EGFR (BEAKER) (test code = 1092) 84 mL/min/1.73 sq m Interpretation of eG FR values Stage Description Result G1 Normal or high >=90 G2 Mildly decreased 60-89 G3a Mildly to moderately 45-59 G3b Moderately to severely 30-44 G4 Severly decreased 15-29 G5 Kidney failure <15Reported eGFR is based on the CKD-EPI 2020 equation that does not use a race coefficientEstimated GFR is not as accurate as Creatinine Clearance in predicting glomerular filtration rate. Estimated GFR is not applicable for dialysis patients Specimen slightly [id number] 18:13:05* Test Item Value Reference Range Interpretation Comme nts LIPASE (BEAKER) (test code = 749) 63 U/L <=60 H Specimen slightly ictericPROTHROMBIN TIME/[id number] 17:49:25* Test Item Value Reference Range Interpretation Comme nts PROTIME (BEAKER) (test code = 759) 15.1 seconds 9.9-12.7 H INR (BEAKER) (test code = 370) 1.34 See Comment RECOMMENDED COUMADIN/WARFARIN INR THERAPY RANGESSTANDARD DOSE: 2.0 - 3.0 Includes: PROPHYLAXIS for venous thrombosis, systemic embolization; TREATMENT for venous thrombosis and/or pulmonary embolus.HIGH RISK: Target INR is 2.5-3.5 for patients with mechanical heart valves.Insurance Office Manager ID -[id number] 17:49:25* Test Item Value Reference Range Interpretation Comme nts PARTIAL THROMBOPLASTIN TIME (BEAKER) (test code = 760) 42.4 seconds 26.8-37.1 H Insurance Office Manager ID -LACTIC ACID, [id number] 17:44:00* Test Item Value Reference Range Interpretation Comme nts LACTATE BLOOD VENOUS (2) (BEAKER) (test code = 2872) 1.58 mmol/L 0.50-2.20 Specimen slightl y hemolyzed Specimen slightly ictericCBC W/PLT COUNT & AUTO [id number] 17:31:12 * Test Item Value Reference Range Interpretation Comme nts WHITE BLOOD CELL COUNT (BEAK ER) (test code = 775) 4.3 K/ L 3.5-10.5 RED BLOOD CELL COUNT (BEAKER ) (test code = 761) 3.55 M/ L 3.93-5.22 L HEMOGLOBIN (BEAKER) (test co de = 410) 12.1 GM/DL 11.2-15.7 HEMATOCRIT (BEAKER) (test co de = 411) 35.9 % 34.1-44.9 MEAN CORPUSCULAR VOLUME (LUCSA KER) (test code = 753) 101 fL 79-95 H MEAN CORPUSCULAR HEMOGLOBIN (BEAKER) (test code = 751) 34.1 pg 25.6-32.2 H MEAN CORPUSCULAR HEMOGLOBIN CONC (BEAKER) (test code = 752) 33.7 GM/DL 32.2-35.5 RED CELL DISTRIBUTION WIDTH (BEAKER) (test code = 412) 13.2 % 11.7-14.4 PLATELET COUNT (BEAKER) (troy t code = 756) 145 K/CU MM 150-450 L MEAN PLATELET VOLUME (BEAKER ) (test code = 754) 10.2 fL 9.4-12.3 NUCLEATED RED BLOOD CELLS (BEAKER) (test code = 413) 0 /100 WBC 0-0 NEUTROPHILS RELATIVE PERCENT (BEAKER) (test code = 429) 58 % LYMPHOCYTES RELATIVE PERCENT (BEAKER) (test code = 430) 25 % MONOCYTES RELATIVE PERCENT (BEAKER) (test code = 431) 12 % EOSINOPHILS RELATIVE PERCENT (BEAKER) (test code = 432) 4 % BASOPHILS RELATIVE PERCENT (BEAKER) (test code = 437) 1 % NEUTROPHILS ABSOLUTE COUNT (BEAKER) (test code = 670) 2.47 K/ L 1.56-6.13 LYMPHOCYTES ABSOLUTE COUNT (BEAKER) (test code = 414) 1.07 K/ L 1.18-3.74 L MONOCYTES ABSOLUTE COUNT (BE TACOS) (test code = 415) 0.49 K/ L 0.24-0.36 H EOSINOPHILS ABSOLUTE COUNT (BEAKER) (test code = 416) 0.18 K/ L 0.04-0.36 BASOPHILS ABSOLUTE COUNT (BE TACOS) (test code = 417) 0.04 K/ L 0.01-0.08 IMMATURE GRANULOCYTES-RELATI VE PERCENT (BEAKER) (test code = 2801) 0.50 % 0.00-1.00 URINALYSIS W/ REFLEX URINE [id number] 17:12:51* Test Item Value Reference Range Interpretation Comme nts COLOR (BEAKER) (test code = 470) Light Yellow CLARITY (BEAKER) (test code = 469) Clear SPECIFIC GRAVITY UA (BEAKER) (test code = 468) 1.011 1.001-1.035 PH UA (BEAKER) (test code = 467) 6.0 5.0-8.0 PROTEIN UA (BEAKER) (test co de = 464) Negative Negative GLUCOSE UA (BEAKER) (test co de = 365) Negative Negative KETONES UA (BEAKER) (test co de = 371) Negative Negative BILIRUBIN UA (BEAKER) (test code = 462) Negative Negative BLOOD UA (BEAKER) (test code = 461) Negative Negative NITRITE UA (BEAKER) (test co de = 465) Negative Negative LEUKOCYTE ESTERASE UA (BEAKE R) (test code = 466) Negative Negative UROBILINOGEN UA (BEAKER) (te st code = 463) 0.2 0.2-1.0 RBC UA (BEAKER) (test code = 519) 3 /HPF WBC UA (BEAKER) (test code = 520) 1 /HPF SQUAMOUS EPITHELIAL (BEAKER) (test code = 516) 1 /HPF SOURCE(BEAKER) (test code = 2795) Insurance Office Manager ID - [auto]Insurance Office Manager ID - techHEPATIC FUNCTION [id number] 05:44:07 * Test Item Value Reference Range Interpretation Comme nts TOTAL PROTEIN (BEAKER) (test code = 770) 6.8 gm/dL 6.4-8.3 ALBUMIN (BEAKER) (test code = 1145) 3.0 g/dL 3.1-4.5 L BILIRUBIN TOTAL (BEAKER) (te st code = 377) 4.9 mg/dL 0.3-1.2 H BILIRUBIN DIRECT (BEAKER) (t est code = 706) 1.7 mg/dL 0.1-0.5 H ALKALINE PHOSPHATASE (BEAKER ) (test code = 346) 83 U/L 40-150 AST (SGOT) (BEAKER) (test co de = 353) 37 U/L 11-34 H ALT (SGPT) (BEAKER) (test co de = 347) 11 U/L <34 Specimen moderately ictericBASIC METABOLIC [id number] 05:32:26* Test Item Value Reference Range Interpretation Comme nts SODIUM (BEAKER) (test code = 381) 135 meq/L 136-145 L POTASSIUM (BEAKER) (test code = 379) 3.8 meq/L 3.4-5.1 CHLORIDE (BEAKER) (test code = 382) 96 meq/L 98-107 L CO2 (BEAKER) (test code = 355) 27 meq/L 22-29 BLOOD UREA NITROGEN (BEAKER) (test code = 354) 5 mg/dL 10-20 L CREATININE (BEAKER) (test code = 358) 0.59 mg/dL 0.50-1.10 GLUCOSE RANDOM (BEAKER) (test code = 652) 104 mg/dL 70-105 CALCIUM (BEAKER) (test code = 697) 9.0 mg/dL 8.4-10.2 EGFR (BEAKER) (test code = 1092) 106 mL/min/1.73 sq m Interpretation of eG FR values Stage Description Result G1 Normal or high >=90 G2 Mildly decreased 60-89 G3a Mildly to moderately 45-59 G3b Moderately to severely 30-44 G4 Severly decreased 15-29 G5 Kidney failure <15Reported eGFR is based on the CKD-EPI 2020 equation that does not use a race coefficientEstimated GFR is not as accurate as Creatinine Clearance in predicting glomerular filtration rate. Estimated GFR is not applicable for dialysis patients Specimen moderately [id number] 05:32:21* Test Item Value Reference Range Interpretation Comme nts MAGNESIUM (BEAKER) (test cod e = 627) 1.9 mg/dL 1.6-2.6 [id number] 05:06:26* Test Item Value Reference Range Interpretation Comme nts PHOSPHORUS (BEAKER) (test co de = 604) 3.9 mg/dL 2.5-4.5 PROTHROMBIN [id number] 04:21:13* Test Item Value Reference Range Interpretation Comme nts PROTIME (BEAKER) (test code = 759) 18.7 seconds 9.9-12.7 H INR (BEAKER) (test code = 370) 1.67 See Comment RECOMMENDED COUMADIN/WARFARIN INR THERAPY RANGESSTANDARD DOSE: 2.0 - 3.0 Includes: PROPHYLAXIS for venous thrombosis, systemic embolization; TREATMENT for venous thrombosis and/or pulmonary embolus.HIGH RISK: Target INR is 2.5-3.5 for patients with mechanical heart valves.Insurance Office Manager ID -CBC W/PLT COUNT & AUTO [id number] 04:05:03* Test Item Value Reference Range Interpretation Comme nts WHITE BLOOD CELL COUNT (BEAK ER) (test code = 775) 6.1 K/ L 3.5-10.5 RED BLOOD CELL COUNT (BEAKER ) (test code = 761) 3.34 M/ L 3.93-5.22 L HEMOGLOBIN (BEAKER) (test co de = 410) 11.7 GM/DL 11.2-15.7 HEMATOCRIT (BEAKER) (test co de = 411) 34.2 % 34.1-44.9 MEAN CORPUSCULAR VOLUME (LUCAS KER) (test code = 753) 102 fL 79-95 H MEAN CORPUSCULAR HEMOGLOBIN (BEAKER) (test code = 751) 35.0 pg 25.6-32.2 H MEAN CORPUSCULAR HEMOGLOBIN CONC (BEAKER) (test code = 752) 34.2 GM/DL 32.2-35.5 RED CELL DISTRIBUTION WIDTH (BEAKER) (test code = 412) 13.5 % 11.7-14.4 PLATELET COUNT (BEAKER) (troy t code = 756) 148 K/CU MM 150-450 L MEAN PLATELET VOLUME (BEAKER ) (test code = 754) 10.3 fL 9.4-12.3 NUCLEATED RED BLOOD CELLS (BEAKER) (test code = 413) 0 /100 WBC 0-0 NEUTROPHILS RELATIVE PERCENT (BEAKER) (test code = 429) 66 % LYMPHOCYTES RELATIVE PERCENT (BEAKER) (test code = 430) 19 % MONOCYTES RELATIVE PERCENT (BEAKER) (test code = 431) 12 % EOSINOPHILS RELATIVE PERCENT (BEAKER) (test code = 432) 3 % BASOPHILS RELATIVE PERCENT (BEAKER) (test code = 437) 1 % NEUTROPHILS ABSOLUTE COUNT (BEAKER) (test code = 670) 4.00 K/ L 1.56-6.13 LYMPHOCYTES ABSOLUTE COUNT (BEAKER) (test code = 414) 1.13 K/ L 1.18-3.74 L MONOCYTES ABSOLUTE COUNT (BE TACOS) (test code = 415) 0.73 K/ L 0.24-0.36 H EOSINOPHILS ABSOLUTE COUNT (BEAKER) (test code = 416) 0.15 K/ L 0.04-0.36 BASOPHILS ABSOLUTE COUNT (BE TACOS) (test code = 417) 0.05 K/ L 0.01-0.08 IMMATURE GRANULOCYTES-RELATI VE PERCENT (BEAKER) (test code = 2801) 0.20 % 0.00-1.00 HIGH SENSITIVITY TROPONIN [id number] 02:36:16* Test Item Value Reference Range Interpretation Comme nts HIGH SENSITIVITY TROPONIN I (test code = 3366198) < pg/ml <14 The Alinity ci High Sensitivity Troponin-I results should be used in conjunction with other diagnostic information such as ECG, clinical observations and information, and patient symptoms to aid in the diagnosis of VA.CT brain without IV [id number] 02:19:10EXAM: CT BRAIN WITHOUT IV CONTRAST CLINICAL INDICATION: Female, 54 years old. Syncope, simple, normal neuroexam TECHNIQUE: CT images from skull base to vertex without IV contrast.This exam was performed according to the departmental dose optimizationprogram which includes automated exposure control, adjustment of the mAand/or kV according to the patient size, and/or use of an iterativereconstruction technique.DISCLAIMER: Absence of intravenous contrast decreases sensitivity fordetection of focal lesions and vascular pathology. COMPARISON: 02/26/2025 FINDINGS: Parenchyma: No mass or mass effect. Ventricular System: Normal Osseous Structures: No acute osseous abnormality. Included Orbits: [facility]CT [facility] WITHOUT IV [id number] 02:19:10 [facility] : 1970 Sex: FEXAM: CT BRAIN WITHOUT IV CONTRASTCLINICAL INDICATION: Female, 54 years old. Syncope, simple, normal neuroexamTECHNIQUE: CT images from skull base to vertex without IV contrast.This exam was performed according to the departmental dose optimizationprogram which includes automated exposure control, adjustment of the mAand/or kV according to the patient size, and/or use of an iterati vereconstruction technique.DISCLAIMER: Absence of intravenous contrast decreases sensitivity fordetection of focal lesions and vascular pathology.COMPARISON: 02/26/2025FINDINGS:Parenchyma: No mass or mass effect.Ventricular System: NormalOsseous Structures: No acute osseous abnormality. Included Orbits: NormalIMPRESSION:1. No acute intracranial abnormality. If there is persistent clinical concern for intracranial pathology, MRexamination is recommended for further characterization.ElectronicallySigned By: Magdaleno Putnam MD04/11/2025 02:21 CDTWorkstation Name: [id number], TOTAL AND [id number] 00:55:52* Test Item Value Reference Range Interpretation Comme nts BILIRUBIN TOTAL (BEAKER) (te st code = 377) 5.1 mg/dL 0.3-1.2 H BILIRUBIN DIRECT (BEAKER) (t est code = 706) 1.7 mg/dL 0.1-0.5 H US ABDOMEN [id number] 00:05:11 [facility] [place] [facility] [place] [facility] : 1970 Sex: FTECHNIQUE: Grayscale ultrasound of the right abdomen.CLINICAL INDICATION: Female 54years old PRURITISABDOMINAL PAINEMESISCOMPARISON: 03/25/2025.FINDINGS:Common bile duct measures 11.4mm, mildly dilated, as before. Nointrahepatic biliary ductal dilatation.MIDLINE VASCULATURE: The visualized inferior vena cava is patent. Portalvein is patent. The visualized abdominal aorta has grossly unremarkableappearance. .LIVER: Cirrhotic morphology of the liver was better evaluated on theprevious studies.. No focal lesions. The main portal vein is notenlarged..BILIARY:Gallbladder: Cholecystectomy.. .PANCREAS: Not visualized.PERITONEUM: No free fluid.RIGHT KIDNEY: Normal in size. No hydron ephrosis. No sonographicallyevident solid mass lesion.IMPRESSION:Cholecystectomy. Mild dilatation of the extrahepatic bile duct is againnoted.Otherwise grossly unremarkable examination..Electronically Signed By: Magdaleno Putnam MD04/11/2025 00:07 CDTWorkstation Name: [id number] COMPREHENSIVE METABOLIC [id number] 19:26:30* Test Item Value Reference Range Interpretation Comme nts TOTAL PROTEIN (BEAKER) (test code = 770) 8.3 gm/dL 6.4-8.3 ALBUMIN (BEAKER) (test code = 1145) 3.5 g/dL 3.1-4.5 ALKALINE PHOSPHATASE (BEAKER) (test code = 346) 98 U/L 40-150 BILIRUBIN TOTAL (BEAKER) (test code = 377) 5.2 mg/dL 0.3-1.2 H SODIUM (BEAKER) (test code = 381) 134 meq/L 136-145 L POTASSIUM (BEAKER) (test code = 379) 3.9 meq/L 3.4-5.1 CHLORIDE (BEAKER) (test code = 382) 99 meq/L 98-107 CO2 (BEAKER) (test code = 355) 25 meq/L 22-29 BLOOD UREA NITROGEN (BEAKER) (test code = 354) 4 mg/dL 10-20 L CREATININE (BEAKER) (test code = 358) 0.65 mg/dL 0.50-1.10 GLUCOSE RANDOM (BEAKER) (test code = 652) 114 mg/dL 70-105 H CALCIUM (BEAKER) (test code = 697) 9.1 mg/dL 8.4-10.2 AST (SGOT) (BEAKER) (test code = 353) 43 U/L 11-34 H ALT (SGPT) (BEAKER) (test code = 347) 13 U/L <34 EGFR (BEAKER) (test code = 1092) 104 mL/min/1.73 sq m Interpretation of eG FR values Stage Description Result G1 Normal or high >=90 G2 Mildly decreased 60-89 G3a Mildly to moderately 45-59 G3b Moderately to severely 30-44 G4 Severly decreased 15-29 G5 Kidney failure <15Reported eGFR is based on the CKD-EPI 2020 equation that does not use a race coefficientEstimated GFR is not as accurate as Creatinine Clearance in predicting glomerular filtration rate. Estimated GFR is not applicable for dialysis patients Specimen moderately ictericPROTHROMBIN TIME/[id number] 19:23:58* Test Item Value Reference Range Interpretation Comme nts PROTIME (BEAKER) (test code = 759) 19.7 seconds 9.9-12.7 H INR (BEAKER) (test code = 370) 1.76 See Comment RECOMMENDED COUMADIN/WARFARIN INR THERAPY RANGESSTANDARD DOSE: 2.0 - 3.0 Includes: PROPHYLAXIS for venous thrombosis, systemic embolization; TREATMENT for venous thrombosis and/or pulmonary embolus.HIGH RISK: Target INR is 2.5-3.5 for patients with mechanical heart valves.Insurance Office Manager ID -[id number] 19:23:58* Test Item Value Reference Range Interpretation Comme nts PARTIAL THROMBOPLASTIN TIME (BEAKER) (test code = 760) 45.3 seconds 26.8-37.1 H Insurance Office Manager ID -[id number] 19:20:40* Test Item Value Reference Range Interpretation Comme nts LIPASE (BEAKER) (test code = 749) 17 U/L <=60 Specimen moderately ictericURINALYSIS W/ REFLEX URINE [id number] 19:20:30 * Test Item Value Reference Range Interpretation Comme nts COLOR (BEAKER) (test code = 470) Light Yellow CLARITY (BEAKER) (test code = 469) Clear SPECIFIC GRAVITY UA (BEAKER) (test code = 468) 1.009 1.001-1.035 PH UA (BEAKER) (test code = 467) 6.0 5.0-8.0 PROTEIN UA (BEAKER) (test co de = 464) Negative Negative GLUCOSE UA (BEAKER) (test co de = 365) Negative Negative KETONES UA (BEAKER) (test co de = 371) Negative Negative BILIRUBIN UA (BEAKER) (test code = 462) Negative Negative BLOOD UA (BEAKER) (test code = 461) Negative Negative NITRITE UA (BEAKER) (test co de = 465) Negative Negative LEUKOCYTE ESTERASE UA (BEAKE R) (test code = 466) Small Negative A UROBILINOGEN UA (BEAKER) (te st code = 463) 0.2 0.2-1.0 RBC UA (BEAKER) (test code = 519) 1 /HPF WBC UA (BEAKER) (test code = 520) 1 /HPF SQUAMOUS EPITHELIAL (BEAKER) (test code = 516) 4 /HPF HYALINE CASTS (BEAKER) (test code = 514) 6 /LPF SOURCE(BEAKER) (test code = 2795) Insurance Office Manager ID - [auto]Insurance Office Manager ID - techCBC W/PLT COUNT & AUTO DIFFERENTIAL 2025-04-10 19:00:35* Test Item Value Reference Range Interpretation Comme nts WHITE BLOOD CELL COUNT (BEAK ER) (test code = 775) 5.6 K/ L 3.5-10.5 RED BLOOD CELL COUNT (BEAKER ) (test code = 761) 3.86 M/ L 3.93-5.22 L HEMOGLOBIN (BEAKER) (test co de = 410) 13.0 GM/DL 11.2-15.7 HEMATOCRIT (BEAKER) (test co de = 411) 39.5 % 34.1-44.9 MEAN CORPUSCULAR VOLUME (LUCAS KER) (test code = 753) 102 fL 79-95 H MEAN CORPUSCULAR HEMOGLOBIN (BEAKER) (test code = 751) 33.7 pg 25.6-32.2 H MEAN CORPUSCULAR HEMOGLOBIN CONC (BEAKER) (test code = 752) 32.9 GM/DL 32.2-35.5 RED CELL DISTRIBUTION WIDTH (BEAKER) (test code = 412) 13.5 % 11.7-14.4 PLATELET COUNT (BEAKER) (troy t code = 756) 155 K/CU MM 150-450 MEAN PLATELET VOLUME (BEAKER ) (test code = 754) 10.4 fL 9.4-12.3 NUCLEATED RED BLOOD CELLS (BEAKER) (test code = 413) 0 /100 WBC 0-0 NEUTROPHILS RELATIVE PERCENT (BEAKER) (test code = 429) 67 % LYMPHOCYTES RELATIVE PERCENT (BEAKER) (test code = 430) 20 % MONOCYTES RELATIVE PERCENT (BEAKER) (test code = 431) 10 % EOSINOPHILS RELATIVE PERCENT (BEAKER) (test code = 432) 3 % BASOPHILS RELATIVE PERCENT (BEAKER) (test code = 437) 1 % NEUTROPHILS ABSOLUTE COUNT (BEAKER) (test code = 670) 3.73 K/ L 1.56-6.13 LYMPHOCYTES ABSOLUTE COUNT (BEAKER) (test code = 414) 1.09 K/ L 1.18-3.74 L MONOCYTES ABSOLUTE COUNT (BE TACOS) (test code = 415) 0.57 K/ L 0.24-0.36 H EOSINOPHILS ABSOLUTE COUNT (BEAKER) (test code = 416) 0.14 K/ L 0.04-0.36 BASOPHILS ABSOLUTE COUNT (BE TACOS) (test code = 417) 0.05 K/ L 0.01-0.08 IMMATURE GRANULOCYTES-RELATI VE PERCENT (BEAKER) (test code = 2801) 0.40 % 0.00-1.00 XR CHEST 1 VIEW PORTABLE / [id number] 12:42:31 [facility] : 1970 Sex: FINDICATION: FEVERCOMPARISON: 01/23/2025 x-rayTECHNIQUE: Single frontal view of the est.FINDINGS: Lines, tubes, and devices: None.Lungs and pleura: Clear lungs. No pneumothorax.Heart and mediastinum: Normal heart size. Unremarkable mediastinalcontours.Osseous structures: No acute abnormality. Mild spondylosis and facetarthropathy are present within the spine.Other: None.IMPRESSION:No acute intrathoracic abnormality.Electronically Signed By: Viral Corbin04/05/2025 12:44 CDTWorkstation Name: [id number] 14:01:00* Test Item Value Reference Range Interpretation Comme nts CULTURE (BEAKER) (test code = 1095) No growth in 5 days The specimen volume collected for this blood culture was below the optimum (10 mL per bottle or 20 mL total). Use of lower volumes may adversely affect recovery and/or detection times of some organisms.BLOOD [id number] 13:00:59* Test Item Value Reference Range Interpretation Comme nts CULTURE (BEAKER) (test code = 1095) No growth in 5 days The specimen volume collected for this blood culture was below the optimum (10 mL per bottle or 20 mL total). Use of lower volumes may adversely affect recovery and/or detection times of some organisms.CBC (HEMOGRAM ONLY)2025-03-31 06:00:48* Test Item Value Reference Range Interpretation Comme nts WHITE BLOOD CELL COUNT (BEAK ER) (test code = 775) 4.5 K/ L 3.5-10.5 RED BLOOD CELL COUNT (BEAKER ) (test code = 761) 3.18 M/ L 3.93-5.22 L HEMOGLOBIN (BEAKER) (test co de = 410) 11.0 GM/DL 11.2-15.7 L HEMATOCRIT (BEAKER) (test co de = 411) 33.0 % 34.1-44.9 L MEAN CORPUSCULAR VOLUME (LUCAS KER) (test code = 753) 104 fL 79-95 H MEAN CORPUSCULAR HEMOGLOBIN (BEAKER) (test code = 751) 34.6 pg 25.6-32.2 H MEAN CORPUSCULAR HEMOGLOBIN CONC (BEAKER) (test code = 752) 33.3 GM/DL 32.2-35.5 RED CELL DISTRIBUTION WIDTH (BEAKER) (test code = 412) 14.1 % 11.7-14.4 PLATELET COUNT (BEAKER) (troy t code = 756) 127 K/CU MM 150-450 L MEAN PLATELET VOLUME (BEAKER ) (test code = 754) 11.0 fL 9.4-12.3 NUCLEATED RED BLOOD CELLS (BEAKER) (test code = 413) 0 /100 WBC 0-0 BASIC METABOLIC [id number] 05:58:04* Test Item Value Reference Range Interpretation Comme nts SODIUM (BEAKER) (test code = 381) 137 meq/L 136-145 POTASSIUM (BEAKER) (test code = 379) 3.5 meq/L 3.4-5.1 CHLORIDE (BEAKER) (test code = 382) 107 meq/L 98-107 CO2 (BEAKER) (test code = 355) 23 meq/L 22-29 BLOOD UREA NITROGEN (BEAKER) (test code = 354) 5 mg/dL 10-20 L CREATININE (BEAKER) (test code = 358) 0.61 mg/dL 0.50-1.10 GLUCOSE RANDOM (BEAKER) (test code = 652) 114 mg/dL 70-105 H CALCIUM (BEAKER) (test code = 697) 8.1 mg/dL 8.4-10.2 L EGFR (BEAKER) (test code = 1092) 106 mL/min/1.73 sq m Interpretation of eG FR values Stage Description Result G1 Normal or high >=90 G2 Mildly decreased 60-89 G3a Mildly to moderately 45-59 G3b Moderately to severely 30-44 G4 Severly decreased 15-29 G5 Kidney failure <15Reported eGFR is based on the CKD-EPI 2020 equation that does not use a race coefficientEstimated GFR is not as accurate as Creatinine Clearance in predicting glomerular filtration rate. Estimated GFR is not applicable for dialysis patients BLOOD [id number] 20:00:34* Test Item Value Reference Range Interpretation Comme nts CULTURE (BEAKER) (test code = 1095) No growth in 5 days BLOOD [id number] 20:00:34* Test Item Value Reference Range Interpretation Comme nts CULTURE (BEAKER) (test code = 1095) No growth in 5 days The specimen volume collected for this blood culture was below the optimum (10 mL per bottle or 20 mL total). Use of lower volumes may adversely affect recovery and/or detection times of some organisms.HEPATIC FUNCTION PANEL 2025-03-30 09:59:56* Test Item Value Reference Range Interpretation Comme nts TOTAL PROTEIN (BEAKER) (test code = 770) 6.7 gm/dL 6.4-8.3 ALBUMIN (BEAKER) (test code = 1145) 2.9 g/dL 3.1-4.5 L BILIRUBIN TOTAL (BEAKER) (te st code = 377) 3.2 mg/dL 0.3-1.2 H BILIRUBIN DIRECT (BEAKER) (t est code = 706) 1.3 mg/dL 0.1-0.5 H ALKALINE PHOSPHATASE (BEAKER ) (test code = 346) 81 U/L 40-150 AST (SGOT) (BEAKER) (test co de = 353) 32 U/L 11-34 ALT (SGPT) (BEAKER) (test co de = 347) < U/L <34 Specimen slightly ictericRespiratory Panel [facility] (Restricted to Infectious Diseases and severely immunosuppressed patients)2025-03-30 09:07:04* Test Item Value Reference Range Interpretation Comme nts Human Metapneumovirus (test code = 81293-4) Detected Not detected, Equivocal A Contact isolation. Consider stopping antibiotics. Rhinovirus (test code = 72495-0) Not detected Not detected, Equivocal INFLUENZA A (NO SUBTYPE) (test code = 72558-3) Not detected Not detected, Equivocal Influenza A subtype H1 (test code = 86315-8) Influenza A Subtype H3 (test code = 81932-2) Influenza A Subtype H1-2009 (test code = 12347-6) Influenza B (test code = 74491-2) Not detected Not detected, Equivocal Respiratory Syncytial Virus (test code = 16934-5) Not detected Not detected, Equivocal Parainfluenza Virus 1 (test code = 30952-3) Not detected Not detected, Equivocal Parainfluenza Virus 2 (test code = 78463-0) Not detected Not detected, Equivocal Parainfluenza virus 3 (test code = 78549-4) Not detected Not detected, Equivocal Parainfluenza Virus 4 (test code = 63429-3) Not detected Not detected, Equivocal Adenovirus (test code = 01037-4) Not detected Not detected, Equivocal Coronavirus 229E (test code = 68142-1) Not detected Not detected, Equivocal Coronavirus HKU1 (test code = 38051-2) Not detected Not detected, Equivocal Coronavirus NL63 (test code = 75560-9) Not detected Not detected, Equivocal Coronavirus OC43 (test code = 69642-2) Not detected Not detected, Equivocal Bordetella Pertussis (test code = 51996-8) Not detected Not detected, Equivocal Chlamydophila Pneumoniae (test code = 81274-4) Not detected Not detected, Equivocal Mycoplasma Pneumoniae (test code = 99387-6) Not detected Not detected, Equivocal Severe Acute Octzrpgldtm-CnA-0 (test code = 35617-0) Not detected Not detected, Equivocal Bordtella Parapertussis (test code = 98849-6) Not detected Not detected, Equivocal BLANCA (test code = BLANCA) Other viruses and bacteria not targeted by this PCR panel cannot be excluded; therefore clinical correlation and follow up of serology, culture results, and other molecular studies is required. The results are not intended to be used as the sole means for clinical diagnosis or patient management decisions. This sample was tested at the [facility] using the [employer] Networks[employer] Respiratory Panel. It is FDA cleared and has been verified and approved by the [facility] for clinical use on nasopharyngeal swab specimens. The performance of the FilmArray RP has not been established in individuals who received influenza vaccine. Recent administration of a nasal influenza vaccine may cause false positive results for Influenza A and/orInfluenza B. Lab Interpretation (test code = 68534-5) [facility]normal [facility] [id number] 09:07:04* Test Item Value Reference Range Interpretation Comme nts HUMAN METAPNEUMOVIRUS (BEAKER) (test code = 2683) Detected Not detected, Equivocal A Contact isolation. Consider stopping antibiotics. RHINOVIRUS (BEAKER) (test code = 2684) Not detected Not detected, Equivocal INFLUENZA A (BEAKER) (test code = 2685) Not detected Not detected, Equivocal INFLUENZA A (NO SUBTYPE) (test code = 3606) INFLUENZA A SUBTYPE H1 (BEAKER) (test code = 2686) INFLUENZA A SUBTYPE H3 (BEAKER) (test code = 2687) INFLUENZA A SUBTYPE H1-2009 (BEAKER) (test code = 3198) INFLUENZA B (BEAKER) (test code = 2688) Not detected Not detected, Equivocal RESPIRATORY SYNCYTIAL VIRUS (BEAKER) (test code = 3199) Not detected Not detected, Equivocal PARAINFLUENZA VIRUS 1 (BEAKER) (test code = 2691) Not detected Not detected, Equivocal PARAINFLUENZA VIRUS 2 (BEAKER) (test code = 2692) Not detected Not detected, Equivocal PARAINFLUENZA VIRUS 3 (BEAKER) (test code = 2693) Not detected Not detected, Equivocal PARAINFLUENZA VIRUS 4 (BEAKER) (test code = 3200) Not detected Not detected, Equivocal ADENOVIRUS (BEAKER) (test code = 2694) Not detected Not detected, Equivocal CORONAVIRUS 229E (BEAKER) (test code = 3201) Not detected Not detected, Equivocal CORONAVIRUS HKU1 (BEAKER) (test code = 3202) Not detected Not detected, Equivocal CORONAVIRUS NL63 (BEAKER) (test code = 3203) Not detected Not detected, Equivocal CORONAVIRUS OC43 (BEAKER) (test code = 3204) Not detected Not detected, Equivocal BORDETELLA PERTUSSIS (BEAKER) (test code = 3205) Not detected Not detected, Equivocal CHLAMYDOPHILA PNEUMONIAE (BEAKER) (test code = 3206) Not detected Not detected, Equivocal MYCOPLASMA PNEUMONIAE (BEAKER) (test code = 3207) Not detected Not detected, Equivocal SEVERE ACUTE RESPIRATORY FBEIUAHX-HPDVYWEOLET-4 (test code = 1908475) Not detected Not detected, Equivocal BORDETELLA PARAPERTUSSIS (BKR) (test code = 9841775) Not detected Not detected, Equivocal Other viruses and bacteria not targeted by this PCR panel cannot be excluded; therefore clinical correlation and follow up of serology, culture results, and other molecular studies is required. The results are not intended to be used as the sole means for clinical diagnosis or patient management decisions. This sample was tested at the [facility] using the [employer] Respiratory Panel. It is FDA cleared and has been verified and approved by the [facility] for clinical use on nasopharyngeal swab specimens.The performance of the Film[employer] RP has not been established in individuals who received influenza vaccine. Recent administration of a nasal influenza vaccine may cause false positive results for Influenza A and/orInfluenza B.BASIC METABOLIC [id number] 06:08:11* Test Item Value Reference Range Interpretation Comme nts SODIUM (BEAKER) (test code = 381) 136 meq/L 136-145 POTASSIUM (BEAKER) (test code = 379) 3.9 meq/L 3.4-5.1 CHLORIDE (BEAKER) (test code = 382) 105 meq/L 98-107 CO2 (BEAKER) (test code = 355) 21 meq/L 22-29 L BLOOD UREA NITROGEN (BEAKER) (test code = 354) 5 mg/dL 10-20 L CREATININE (BEAKER) (test code = 358) 0.56 mg/dL 0.50-1.10 GLUCOSE RANDOM (BEAKER) (test code = 652) 93 mg/dL 70-105 CALCIUM (BEAKER) (test code = 697) 8.4 mg/dL 8.4-10.2 EGFR (BEAKER) (test code = 1092) 108 mL/min/1.73 sq m Interpretation of eG FR values Stage Description Result G1 Normal or high >=90 G2 Mildly decreased 60-89 G3a Mildly to moderately 45-59 G3b Moderately to severely 30-44 G4 Severly decreased 15-29 G5 Kidney failure <15Reported eGFR is based on the CKD-EPI 2020 equation that does not use a race coefficientEstimated GFR is not as accurate as Creatinine Clearance in predicting glomerular filtration rate. Estimated GFR is not applicable for dialysis patients Specimen slightly ictericCBC (HEMOGRAM ONLY)2025-03-30 05:53:21* Test Item Value Reference Range Interpretation Comme nts WHITE BLOOD CELL COUNT (BEAK ER) (test code = 775) 4.7 K/ L 3.5-10.5 RED BLOOD CELL COUNT (BEAKER ) (test code = 761) 3.19 M/ L 3.93-5.22 L HEMOGLOBIN (BEAKER) (test co de = 410) 11.0 GM/DL 11.2-15.7 L HEMATOCRIT (BEAKER) (test co de = 411) 32.9 % 34.1-44.9 L MEAN CORPUSCULAR VOLUME (LUCAS KER) (test code = 753) 103 fL 79-95 H MEAN CORPUSCULAR HEMOGLOBIN (BEAKER) (test code = 751) 34.5 pg 25.6-32.2 H MEAN CORPUSCULAR HEMOGLOBIN CONC (BEAKER) (test code = 752) 33.4 GM/DL 32.2-35.5 RED CELL DISTRIBUTION WIDTH (BEAKER) (test code = 412) 14.1 % 11.7-14.4 PLATELET COUNT (BEAKER) (troy t code = 756) 127 K/CU MM 150-450 L MEAN PLATELET VOLUME (BEAKER ) (test code = 754) 10.7 fL 9.4-12.3 NUCLEATED RED BLOOD CELLS (BEAKER) (test code = 413) 0 /100 WBC 0-0 LACTIC ACID, [id number] 18:20:19* Test Item Value Reference Range Interpretation Comme nts LACTATE BLOOD VENOUS (2) (BEAKER) (test code = 2872) 3.18 mmol/L 0.50-2.20 H Specimen slightl y hemolyzed Specimen slightly ictericPROTHROMBIN [id number] 13:23:26* Test Item Value Reference Range Interpretation Comme nts PROTIME (BEAKER) (test code = 759) 19.4 seconds 9.9-12.7 H INR (BEAKER) (test code = 370) 1.74 See Comment RECOMMENDED COUMADIN/WARFARIN INR THERAPY RANGESSTANDARD DOSE: 2.0 - 3.0 Includes: PROPHYLAXIS for venous thrombosis, systemic embolization; TREATMENT for venous thrombosis and/or pulmonary embolus.HIGH RISK: Target INR is 2.5-3.5 for patients with mechanical heart valves.Insurance Office Manager ID -HEPATIC FUNCTION PANEL 2025-03-29 13:01:46* Test Item Value Reference Range Interpretation Comme nts TOTAL PROTEIN (BEAKER) (test code = 770) 7.4 gm/dL 6.4-8.3 ALBUMIN (BEAKER) (test code = 1145) 3.2 g/dL 3.1-4.5 BILIRUBIN TOTAL (BEAKER) (te st code = 377) 4.7 mg/dL 0.3-1.2 H BILIRUBIN DIRECT (BEAKER) (t est code = 706) 1.8 mg/dL 0.1-0.5 H ALKALINE PHOSPHATASE (BEAKER ) (test code = 346) 88 U/L 40-150 AST (SGOT) (BEAKER) (test co de = 353) 33 U/L 11-34 ALT (SGPT) (BEAKER) (test co de = 347) 7 U/L <34 Specimen moderately ictericC-REACTIVE [id number] 12:59:01* Test Item Value Reference Range Interpretation Comme nts C-REACTIVE PROTEIN (BEAKER) (test code = 676) 0.71 mg/dL <=0.50 H MR abdomen without IV contrast [id number] 10:32:15TECHNIQUE: MRI of the abdomen and MRCP WITHOUT intravenous contrast. 3-Dvolume reconstructions were obtained to evaluate the biliary ductalsystem. INDICATION: Hyperbilirubinemia COMPARISON: None. FINDINGS: ABSENCE OF INTRAVENOUS CONTRAST DECREASES SENSITIVITY FOR DETECTION OFFOCAL LESIONS AND VASCULAR PATHOLOGY. LOWER THORAX: Unremarkable. LIVER: The liver is not enlarged. Slight nodular contour and traceperihepatic free fluid consistent with cirrhosis.. No focal hepaticlesions. BILIARY: Prior cholecystectomy.. Mild prominence of the common bile ductmeasures up to a mm. No intrahepatic biliary ductal dilatation.. Nofilling defects in the common bile duct.SPLEEN: Splenomegaly, 16.9 cm..PANCREAS: No focal masses or ductal dilatation. ADRENALS: No adrenal nodules.KIDNEYS/URETERS: No hydronephrosis or solid mass lesions. PERITONEUM/RETROPERITONEUM: No free fluid.LYMPH NODES: No lymphadenopathy.VESSELS: Unremarkable. GI TRACT: No distention or wall thickening. BONES AND SOFT TISSUES: Unremarkable.[facility]MR [facility] [id number] 10:32:15 [facility] : 1970 Sex: FTECHNIQUE: MRI of the abdomen and MRCP WITHOUT intravenous contrast. 3-Dvolume reconstructions were obtained to evaluate the biliary ductalsystem.INDICATION: HyperbilirubinemiaCOMPARISON: None.FINDINGS:ABSENCE OF INTRAVENOUS CONTRAST DECREASES SENSITIVITY FOR DETECTION OFFOCAL LESIONS AND VASCULAR PATHOLOGY.LOWER THORAX: Unremarkable.LIVER: The liver is not enlarged. Slight nodular contour and traceperihepatic free fluid consistent with cirrhosis.. No focal hepaticlesions. BILIARY: Prior cholecystectomy.. Mild prominence of the common bile ductmeasures up to a mm. No intrahepatic biliary ductal dilatation.. Nofilling defects in the common bile duct.SPLEEN: Splenomegaly, 16.9 cm..PANCREAS: No focal masses or ductal dilatation.ADRENALS: No adrenal nodules.KIDNEYS/URETERS: Nohydronephrosis or solid mass lesions.PERITONEUM/RETROPERITONEUM: No free fluid.LYMPH NODES: No lymph adenopathy.VESSELS: Unremarkable.GI TRACT: No distention or wall thickening.BONES AND SOFT TISSUES:Unremarkable.IMPRESSION:Prior cholecystectomy. Minimal prominence of the common bile duct, nofilling defect or obstruction.Cirrhosis of the liver.No evidence of pancreatitis.Trace ascites and splenomegaly consistent with portal hypertension.Electronically Signed By: Mabel Rahman03/29/2025 10:34 CDTWorkstation Name: [id number] (HEMOGRAM ONLY) 2025-03-29 06:44:24* Test Item Value Reference Range Interpretation Comme nts WHITE BLOOD CELL COUNT (BEAK ER) (test code = 775) 7.9 K/ L 3.5-10.5 RED BLOOD CELL COUNT (BEAKER ) (test code = 761) 3.39 M/ L 3.93-5.22 L HEMOGLOBIN (BEAKER) (test co de = 410) 11.6 GM/DL 11.2-15.7 HEMATOCRIT (BEAKER) (test co de = 411) 35.1 % 34.1-44.9 MEAN CORPUSCULAR VOLUME (LUCAS KER) (test code = 753) 104 fL 79-95 H MEAN CORPUSCULAR HEMOGLOBIN (BEAKER) (test code = 751) 34.2 pg 25.6-32.2 H MEAN CORPUSCULAR HEMOGLOBIN CONC (BEAKER) (test code = 752) 33.0 GM/DL 32.2-35.5 RED CELL DISTRIBUTION WIDTH (BEAKER) (test code = 412) 14.0 % 11.7-14.4 PLATELET COUNT (BEAKER) (troy t code = 756) 136 K/CU MM 150-450 L MEAN PLATELET VOLUME (BEAKER ) (test code = 754) 10.4 fL 9.4-12.3 NUCLEATED RED BLOOD CELLS (BEAKER) (test code = 413) 0 /100 WBC 0-0 BASIC METABOLIC [id number] 06:13:46* Test Item Value Reference Range Interpretation Comme nts SODIUM (BEAKER) (test code = 381) 134 meq/L 136-145 L POTASSIUM (BEAKER) (test code = 379) 3.8 meq/L 3.4-5.1 CHLORIDE (BEAKER) (test code = 382) 103 meq/L 98-107 CO2 (BEAKER) (test code = 355) 20 meq/L 22-29 L BLOOD UREA NITROGEN (BEAKER) (test code = 354) 6 mg/dL 10-20 L CREATININE (BEAKER) (test code = 358) 0.62 mg/dL 0.50-1.10 GLUCOSE RANDOM (BEAKER) (test code = 652) 98 mg/dL 70-105 CALCIUM (BEAKER) (test code = 697) 8.6 mg/dL 8.4-10.2 EGFR (BEAKER) (test code = 1092) 105 mL/min/1.73 sq m Interpretation of eG FR values Stage Description Result G1 Normal or high >=90 G2 Mildly decreased 60-89 G3a Mildly to moderately 45-59 G3b Moderately to severely 30-44 G4 Severly decreased 15-29 G5 Kidney failure <15Reported eGFR is based on the CKD-EPI 2020 equation that does not use a race coefficientEstimated GFR is not as accurate as Creatinine Clearance in predicting glomerular filtration rate. Estimated GFR is not applicable for dialysis patients Specimen moderately ictericBASIC METABOLIC [id number] 07:46:39* Test Item Value Reference Range Interpretation Comme nts SODIUM (BEAKER) (test code = 381) 136 meq/L 136-145 POTASSIUM (BEAKER) (test code = 379) 3.9 meq/L 3.4-5.1 CHLORIDE (BEAKER) (test code = 382) 104 meq/L 98-107 CO2 (BEAKER) (test code = 355) 21 meq/L 22-29 L BLOOD UREA NITROGEN (BEAKER) (test code = 354) 5 mg/dL 10-20 L CREATININE (BEAKER) (test code = 358) 0.58 mg/dL 0.50-1.10 GLUCOSE RANDOM (BEAKER) (test code = 652) 103 mg/dL 70-105 CALCIUM (BEAKER) (test code = 697) 8.8 mg/dL 8.4-10.2 EGFR (BEAKER) (test code = 1092) 107 mL/min/1.73 sq m Interpretation of eG FR values Stage Description Result G1 Normal or high >=90 G2 Mildly decreased 60-89 G3a Mildly to moderately 45-59 G3b Moderately to severely 30-44 G4 Severly decreased 15-29 G5 Kidney failure <15Reported eGFR is based on the CKD-EPI 2020 equation that does not use a race coefficientEstimated GFR is not as accurate as Creatinine Clearance in predicting glomerular filtration rate. Estimated GFR is not applicable for dialysis patients Specimen moderately ictericCBC (HEMOGRAM ONLY)2025-03-28 07:18:30* Test Item Value Reference Range Interpretation Comme nts WHITE BLOOD CELL COUNT (BEAK ER) (test code = 775) 5.0 K/ L 3.5-10.5 RED BLOOD CELL COUNT (BEAKER ) (test code = 761) 3.52 M/ L 3.93-5.22 L HEMOGLOBIN (BEAKER) (test co de = 410) 12.1 GM/DL 11.2-15.7 HEMATOCRIT (BEAKER) (test co de = 411) 36.1 % 34.1-44.9 MEAN CORPUSCULAR VOLUME (LUCAS KER) (test code = 753) 103 fL 79-95 H MEAN CORPUSCULAR HEMOGLOBIN (BEAKER) (test code = 751) 34.4 pg 25.6-32.2 H MEAN CORPUSCULAR HEMOGLOBIN CONC (BEAKER) (test code = 752) 33.5 GM/DL 32.2-35.5 RED CELL DISTRIBUTION WIDTH (BEAKER) (test code = 412) 14.0 % 11.7-14.4 PLATELET COUNT (BEAKER) (troy t code = 756) 130 K/CU MM 150-450 L MEAN PLATELET VOLUME (BEAKER ) (test code = 754) 10.4 fL 9.4-12.3 NUCLEATED RED BLOOD CELLS (BEAKER) (test code = 413) 0 /100 WBC 0-0 HEPATIC FUNCTION [id number] 09:17:31* Test Item Value Reference Range Interpretation Comme nts TOTAL PROTEIN (BEAKER) (test code = 770) 7.2 gm/dL 6.4-8.3 ALBUMIN (BEAKER) (test code = 1145) 3.1 g/dL 3.1-4.5 BILIRUBIN TOTAL (BEAKER) (te st code = 377) 4.4 mg/dL 0.3-1.2 H BILIRUBIN DIRECT (BEAKER) (t est code = 706) 1.6 mg/dL 0.1-0.5 H ALKALINE PHOSPHATASE (BEAKER ) (test code = 346) 86 U/L 40-150 AST (SGOT) (BEAKER) (test co de = 353) 30 U/L 11-34 ALT (SGPT) (BEAKER) (test co de = 347) 8 U/L <34 Specimen moderately ictericBASIC METABOLIC [id number] 07:32:21* Test Item Value Reference Range Interpretation Comme nts SODIUM (BEAKER) (test code = 381) 132 meq/L 136-145 L POTASSIUM (BEAKER) (test code = 379) 3.8 meq/L 3.4-5.1 CHLORIDE (BEAKER) (test code = 382) 102 meq/L 98-107 CO2 (BEAKER) (test code = 355) 22 meq/L 22-29 BLOOD UREA NITROGEN (BEAKER) (test code = 354) 5 mg/dL 10-20 L CREATININE (BEAKER) (test code = 358) 0.64 mg/dL 0.50-1.10 GLUCOSE RANDOM (BEAKER) (test code = 652) 103 mg/dL 70-105 CALCIUM (BEAKER) (test code = 697) 8.6 mg/dL 8.4-10.2 EGFR (BEAKER) (test code = 1092) 104 mL/min/1.73 sq m Interpretation of eG FR values Stage Description Result G1 Normal or high >=90 G2 Mildly decreased 60-89 G3a Mildly to moderately 45-59 G3b Moderately to severely 30-44 G4 Severly decreased 15-29 G5 Kidney failure <15Reported eGFR is based on the CKD-EPI 2020 equation that does not use a race coefficientEstimated GFR is not as accurate as Creatinine Clearance in predicting glomerular filtration rate. Estimated GFR is not applicable for dialysis patients Specimen moderately ictericCBC (HEMOGRAM ONLY)2025-03-27 07:21:41* Test Item Value Reference Range Interpretation Comme nts WHITE BLOOD CELL COUNT (BEAK ER) (test code = 775) 3.9 K/ L 3.5-10.5 RED BLOOD CELL COUNT (BEAKER ) (test code = 761) 3.50 M/ L 3.93-5.22 L HEMOGLOBIN (BEAKER) (test co de = 410) 11.8 GM/DL 11.2-15.7 HEMATOCRIT (BEAKER) (test co de = 411) 35.8 % 34.1-44.9 MEAN CORPUSCULAR VOLUME (LUCAS KER) (test code = 753) 102 fL 79-95 H MEAN CORPUSCULAR HEMOGLOBIN (BEAKER) (test code = 751) 33.7 pg 25.6-32.2 H MEAN CORPUSCULAR HEMOGLOBIN CONC (BEAKER) (test code = 752) 33.0 GM/DL 32.2-35.5 RED CELL DISTRIBUTION WIDTH (BEAKER) (test code = 412) 13.9 % 11.7-14.4 PLATELET COUNT (BEAKER) (troy t code = 756) 139 K/CU MM 150-450 L MEAN PLATELET VOLUME (BEAKER ) (test code = 754) 10.2 fL 9.4-12.3 NUCLEATED RED BLOOD CELLS (BEAKER) (test code = 413) 0 /100 WBC 0-0 CT ABDOMEN/PELVIS WITHOUT IV [id number] 22:01:50 [facility] : 1970 Sex: FTECHNIQUE: CT of the abdomen and pelvis WITHOUT intravenous contrast andWITHOUT oral contrast. Dose modulation, iterative reconstruction, and/orweight-based adjustment of the mA/kV was utilized to reduce theradiation dose to as low as reasonably achievable.INDICATION: Abdominal distension.COMPARISON: Study dated three weeks prior.FINDINGS:ABSENCE OF INTRAVENOUS CONTRAST DECREASES SENSITIVITY FOR DETECTION OFFOCAL LESIONS AND VASCULAR PATHOLOGY.LOWER THORAX: Unremarkable.HEPATOBILIARY: Prominent caudate lobe and brock hepatis.Postcholecystectomy status. Prominent CBD measuring up to 1.4 cm.SPLEEN: Splenomegaly measuring up to 14 cm.PANCREAS: No focal masses or ductal dilatation.ADRENALS: No adrenal nodules.KIDNEYS/URETERS: No hydronephrosis, stones, or exophytic masses.PELVIC ORGANS/BLADDER: Unremarkable.PERITONEUM/RETROPERITONEUM: Redemonstration of mesenteric fat strandingpredominantly of the aortic root. Small coarse mesenteric hyperdensitiesin the right pelvis.LYMPHNODES: Small mesenteric nodes predominantly at the aortic root.VESSELS: Unremarkable.GI TRACT: The appendix is not discretely visualized, likely secondary topost appendectomy status. Scattered colonic diverticula. No CT evidencefor acute diverticulitis.BONES AND SOFT TISSUES: Demineralized bone density.IMPRESSION:Postcholecystectomy status. Prominent CBD measuring up to 1.4 cm.Mesenteric fat stranding predominantly at the root of mesentery.Correlate with T bili and its increased, recommend MRI/M [employer]BLER for furtherevaluation. Fat stranding in the mesenteric root could be alsoindicative of evolvingacute pancreatitis. Correlate with lipase.Prominent caudate lobe and brock hepatis. Splenomegaly asdetailedabove. Findings concerning for cirrhotic morphology of the liver withfeatures of portal hype rtension. Needs clinical correlation.Small mesenteric nodes predominantly at the root of mesentery.Findingslikely reactive. Follow-up to resolution is recommended.Electronically Signed By: Ivonne Wang03/26/2025 22:03 CDTWorkstation Name: [id number] 11:53:03* Test Item Value Reference Range Interpretation Comme nts HEMOGLOBIN A1C ELECTROPHORESIS (BEAKER) (test code = 3811) 4.8 % See_Comment [Automated me ssage] The system which generated this result transmitted reference range: <=5.6%. The reference range was not used to interpret this result as normal/abnormal. "The A1c is measured using a NGSP-certified method. HbA1c value equal to or greater than 6.5% as the diagnosis cutoff for diabetes. An HbA1c value of 5.7- 6.4% indicates increased risk for diabetes (prediabetes)."Insurance Office Manager ID - ADM HEPATIC FUNCTION [id number] 10:41:08* Test Item Value Reference Range Interpretation Comme nts TOTAL PROTEIN (BEAKER) (test code = 770) 7.2 gm/dL 6.4-8.3 ALBUMIN (BEAKER) (test code = 1145) 3.1 g/dL 3.1-4.5 BILIRUBIN TOTAL (BEAKER) (te st code = 377) 5.4 mg/dL 0.3-1.2 H BILIRUBIN DIRECT (BEAKER) (t est code = 706) 1.7 mg/dL 0.1-0.5 H ALKALINE PHOSPHATASE (BEAKER ) (test code = 346) 86 U/L 40-150 AST (SGOT) (BEAKER) (test co de = 353) 29 U/L 11-34 ALT (SGPT) (BEAKER) (test co de = 347) 7 U/L <34 Specimen moderately [id number] 10:29:59* Test Item Value Reference Range Interpretation Comme nts MAGNESIUM (BEAKER) (test cod e = 627) 2.1 mg/dL 1.6-2.6 BASIC METABOLIC [id number] 10:29:59* Test Item Value Reference Range Interpretation Comme nts SODIUM (BEAKER) (test code = 381) 135 meq/L 136-145 L POTASSIUM (BEAKER) (test code = 379) 3.8 meq/L 3.4-5.1 CHLORIDE (BEAKER) (test code = 382) 103 meq/L 98-107 CO2 (BEAKER) (test code = 355) 22 meq/L 22-29 BLOOD UREA NITROGEN (BEAKER) (test code = 354) 6 mg/dL 10-20 L CREATININE (BEAKER) (test code = 358) 0.68 mg/dL 0.50-1.10 GLUCOSE RANDOM (BEAKER) (test code = 652) 113 mg/dL 70-105 H CALCIUM (BEAKER) (test code = 697) 8.5 mg/dL 8.4-10.2 EGFR (BEAKER) (test code = 1092) 103 mL/min/1.73 sq m Interpretation of eG FR values Stage Description Result G1 Normal or high >=90 G2 Mildly decreased 60-89 G3a Mildly to moderately 45-59 G3b Moderately to severely 30-44 G4 Severly decreased 15-29 G5 Kidney failure <15Reported eGFR is based on the CKD-EPI 2020 equation that does not use a race coefficientEstimated GFR is not as accurate as Creatinine Clearance in predicting glomerular filtration rate. Estimated GFR is not applicable for dialysis patients Specimen moderately ictericCBC W/PLT COUNT & AUTO [id number] 06:38:12* Test Item Value Reference Range Interpretation Comme nts WHITE BLOOD CELL COUNT (BEAK ER) (test code = 775) 6.2 K/ L 3.5-10.5 RED BLOOD CELL COUNT (BEAKER ) (test code = 761) 3.64 M/ L 3.93-5.22 L HEMOGLOBIN (BEAKER) (test co de = 410) 12.4 GM/DL 11.2-15.7 HEMATOCRIT (BEAKER) (test co de = 411) 37.8 % 34.1-44.9 MEAN CORPUSCULAR VOLUME (LUCAS KER) (test code = 753) 104 fL 79-95 H MEAN CORPUSCULAR HEMOGLOBIN (BEAKER) (test code = 751) 34.1 pg 25.6-32.2 H MEAN CORPUSCULAR HEMOGLOBIN CONC (BEAKER) (test code = 752) 32.8 GM/DL 32.2-35.5 RED CELL DISTRIBUTION WIDTH (BEAKER) (test code = 412) 14.4 % 11.7-14.4 PLATELET COUNT (BEAKER) (troy t code = 756) 157 K/CU MM 150-450 MEAN PLATELET VOLUME (BEAKER ) (test code = 754) 11.3 fL 9.4-12.3 NUCLEATED RED BLOOD CELLS (BEAKER) (test code = 413) 0 /100 WBC 0-0 NEUTROPHILS RELATIVE PERCENT (BEAKER) (test code = 429) 62 % LYMPHOCYTES RELATIVE PERCENT (BEAKER) (test code = 430) 22 % MONOCYTES RELATIVE PERCENT (BEAKER) (test code = 431) 11 % EOSINOPHILS RELATIVE PERCENT (BEAKER) (test code = 432) 4 % BASOPHILS RELATIVE PERCENT (BEAKER) (test code = 437) 1 % NEUTROPHILS ABSOLUTE COUNT (BEAKER) (test code = 670) 3.79 K/ L 1.56-6.13 LYMPHOCYTES ABSOLUTE COUNT (BEAKER) (test code = 414) 1.37 K/ L 1.18-3.74 MONOCYTES ABSOLUTE COUNT (BE TACOS) (test code = 415) 0.69 K/ L 0.24-0.36 H EOSINOPHILS ABSOLUTE COUNT (BEAKER) (test code = 416) 0.22 K/ L 0.04-0.36 BASOPHILS ABSOLUTE COUNT (BE TACOS) (test code = 417) 0.06 K/ L 0.01-0.08 IMMATURE GRANULOCYTES-RELATI VE PERCENT (BEAKER) (test code = 2801) 0.30 % 0.00-1.00 PROTHROMBIN [id number] 06:28:11* Test Item Value Reference Range Interpretation Comme nts PROTIME (BEAKER) (test code = 759) 16.5 seconds 9.9-12.7 H INR (BEAKER) (test code = 370) 1.47 See Comment RECOMMENDED COUMADIN/WARFARIN INR THERAPY RANGESSTANDARD DOSE: 2.0 - 3.0 Includes: PROPHYLAXIS for venous thrombosis, systemic embolization; TREATMENT for venous thrombosis and/or pulmonary embolus.HIGH RISK: Target INR is 2.5-3.5 for patients with mechanical heart valves.Insurance Office Manager ID -LACTIC ACID, VENOUS 2025-03-25 20:12:46* Test Item Value Reference Range Interpretation Comme nts LACTATE BLOOD VENOUS (2) (МАРИНАAKER) (test code = 2872) 1.40 mmol/L 0.50-2.20 Specimen slightl y hemolyzed Specimen moderately ictericUS abdomen [id number] 18:55:07EXAMINATION: ULTRASOUND OF THE ABDOMEN AND PELVIS, COMPLETE. TECHNIQUE: Grayscale ultrasound of theabdomen, including color Dopplerevaluation of the main portal vein, abdominal aorta and inferior venacava with charter representative images was obtained. INDICATION: ABDOMINAL PAINBACK PAIN. COMPARISON: None. FINDINGS:Visualized aorta: Nonaneurysmal.IVC: Patent.RIGHT hepatic artery: PSA= 60.6 cm/s, RI = 0. 61LEFT hepatic artery: PSA= 103 cm/s, RI = 06Doppler hepatic artery: PSA= 41.3 cm/s, RI= 0.7, AT: 0.04 Main portal vein diameter: 10.1 mm. PSV: 22.5 cm/sec. Patent Hepatopetalflow RIGHT portal vein:Patent Hepatopetal flow LEFT popliteal vein: Patent Hepatopetal flow RIGHT hepatic vein: PatentMiddlehepatic vein: PatentLEFT hepatic vein: PatentSplenic vein: PatentSplenic artery: Patent Liver: Size: Normal.Morphology/parenchyma/comparison: Irregular nodular contour. Coarseechotexture.Focal lesion: No focal lesions. Biliary ducts:Common bile duct diameter at the brock hepatis: 3 mm. Nointrahepatic duct dilatation. Gallbladder: Surgically removed Pancreas: The visualized pancreas is unremarkable. Spleen: No splenomegaly. No focal lesions. RIGHT Kidney: Indication: Normal position. Length: 9.9x 6.5 x 5.6 cmAppearance: Normal echogenicity. Normal cortical thickness. Collecting system: No hydr onephrosis.Stones: NoneCyst/Mass: None LEFT Kidney: Indication: Normal position. Length: 10.8 x 5.1x 4.4 cmAppearance: Normal echogenicity. Normal cortical thickness. Collecting system: No hydronephrosis.Stones: NoneCyst/Mass: None Bladder: Well-distended and normal in appearance. The peritoneal cavity: No free fluid.[facility] HospitalUS [id number] 18:55:07EXAMINATION: ULTRASOUND OF THE ABDOMEN AND PELVIS, COMPLETE. TECHNIQUE: Grayscale ultrasound of theabdomen, including color Dopplerevaluation of the main portal vein, abdominal aorta and inferior venacava with charter representative images was obtained. INDICATION: ABDOMINAL PAINBACK PAIN. COMPARISON: None. FINDINGS:Visualized aorta: Nonaneurysmal.IVC: Patent.RIGHT hepatic artery: PSA= 60.6 cm/s, RI = 0. 61LEFT hepatic artery: PSA= 103 cm/s, RI = 06Doppler hepatic artery: PSA= 41.3 cm/s, RI= 0.7, AT: 0.04 Main portal vein diameter: 10.1 mm. PSV: 22.5 cm/sec. Patent Hepatopetalflow RIGHT portal vein:Patent Hepatopetal flow LEFT popliteal vein: Patent Hepatopetal flow RIGHT hepatic vein: PatentMiddlehepatic vein: PatentLEFT hepatic vein: PatentSplenic vein: PatentSplenic artery: Patent Liver: Size: Normal.Morphology/parenchyma/comparison: Irregular nodular contour. Coarseechotexture.Focal lesion: No focal lesions. Biliary ducts:Common bile duct diameter at the brock hepatis: 3 mm. Nointrahepatic duct dilatation. Gallbladder: Surgically removed Pancreas: The visualized pancreas is unremarkable. Spleen: No splenomegaly. No focal lesions. RIGHT Kidney: Indication: Normal position. Length: 9.9x 6.5 x 5.6 cmAppearance: Normal echogenicity. Normal cortical thickness. Collecting system: No hydr onephrosis.Stones: NoneCyst/Mass: None LEFT Kidney: Indication: Normal position. Length: 10.8 x 5.1x 4.4 cmAppearance: Normal echogenicity. Normal cortical thickness. Collecting system: No hydronephrosis.Stones: NoneCyst/Mass: None Bladder: Well-distended and normal in appearance. The peritoneal cavity: No free fluid.[facility] HospitalUS [id number] 18:55:07 [facility] : 1970 Sex: FEXAMINATION: ULTRASOUND OF THE ABDOMEN AND PELVIS, COMPLETE.TECHNIQUE: Grayscale ultrasound of the abdomen, including color Dopplerevaluation of the main portal vein, abdominal aorta and inferior venacava with charter representative images was obtained.INDICATION: ABDOMINAL PAINBACK PAIN.COMPARISON: None.FINDINGS:Visualized aorta: Nonaneurysmal.IVC: Patent.RIGHT hepatic artery: PSA= 60.6 cm/s, RI = 0.61LEFT hepatic artery: PSA= 103 cm/s, RI = 06Doppler hepatic artery: PSA= 41.3 cm/s, RI= 0.7, AT: 0.04Main portal vein diameter: 10.1 mm. PSV: 22.5 cm/sec. Patent Hepatopetalflow RIGHT portal vein:Patent Hepatopetal flow LEFT popliteal vein: Patent Hepatopetal flow RIGHT hepatic vein: PatentMiddle hepatic vein: PatentLEFT hepatic vein: PatentSplenic vein: PatentSplenic artery: PatentLiver: Size: Normal.Morphology/parenchyma/comparison: Irregular nodular contour. Coarseechotexture.Focal lesion: No focal lesions.Biliary ducts:Common bile duct diameter at the brock hepatis: 3 mm. Nointrahepatic duct dilatation. Gallbladder: Surgically removedPancreas: The visualized pancreas is unre markable.Spleen: No splenomegaly. No focal lesions.RIGHT Kidney: Indication: Normal position. Length: 9.9 x 6.5 x 5.6 cmAppearance: Normal echogenicity. Normal cortical thickness. Collecting system: No hydronephrosis.Stones: NoneCyst/Mass: NoneLEFT Kidney: Indication: Normal position. Length: 10.8 x 5.1 x 4.4 cmAppearance: Normal echogenicity. Normal cortical thickness. Collecting system: No hydronephrosis.Stones: NoneCyst/Mass: NoneBladder: Well-distended and normal in appearance.The peritoneal cavity: No free fluid.IMPRESSION:1. Cirrhotic appearing liver.2. Portal vein PSV is in the lower end of normal, suggesting earlysigns of portal hypertension or sluggish flow. Elevated PSV in the LEFThepatic artery likely due to hyperdynamic circulation in context ofchronic liver disease.Electronically Signed By: Richy Boston03/25/2025 18:57 CDTWorkstation Name: [id number] ABDOMEN [id number] 18:55:07 [facility] [place] [facility] [place] [facility] : 1970 Sex: FEXAMINATION: ULTRASOUND OF THE ABDOMEN AND PELVIS, COMPLETE.TECHNIQUE: Grayscale ultrasound of the abdomen, including color Dopplerevaluation of the main portal vein, abdominal aorta and inferior venacava with charter representative images was obtained.INDICATION: ABDOMINAL PAINBACK PAIN.COMPARISON: None.FINDINGS:Visualized aorta: Nonaneurysmal.IVC: Patent.RIGHT hepatic artery: PSA= 60.6 cm/s, RI = 0.61LEFT hepatic artery: PSA= 103 cm/s, RI = 06Doppler hepatic artery: PSA= 41.3 cm/s, RI= 0.7, AT: 0.04Main portal vein diameter: 10.1 mm. PSV: 22.5 cm/sec. Patent Hepatopetalflow RIGHT portal vein:Patent Hepatopetal flow LEFT popliteal vein: Patent Hepatopetal flow RIGHT hepatic vein: PatentMiddle hepatic vein: PatentLEFT hepatic vein: PatentSplenic vein: PatentSplenic artery: PatentLiver: Size: Normal.Morphology/parenchyma/comparison: Irregular nodular contour. Coarseechotexture.Focal lesion: No focal lesions.Biliary ducts:Common bile duct diameter at the brock hepatis: 3 mm. Nointrahepatic duct dilatation. Gallbladder: Surgically removedPancreas: The visualized pancreas is unre markable.Spleen: No splenomegaly. No focal lesions.RIGHT Kidney: Indication: Normal position. Length: 9.9 x 6.5 x 5.6 cmAppearance: Normal echogenicity. Normal cortical thickness. Collecting system: No hydronephrosis.Stones: NoneCyst/Mass: NoneLEFT Kidney: Indication: Normal position. Length: 10.8 x 5.1 x 4.4 cmAppearance: Normal echogenicity. Normal cortical thickness. Collecting system: No hydronephrosis.Stones: NoneCyst/Mass: NoneBladder: Well-distended and normal in appearance.The peritoneal cavity: No free fluid.IMPRESSION:1. Cirrhotic appearing liver.2. Portal vein PSV is in the lower end of normal, suggesting earlysigns of portal hypertension or sluggish flow. Elevated PSV in the LEFThepatic artery likely due to hyperdynamic circulation in context ofchronic liver disease.Electronically Signed By: Richy Boston03/25/2025 18:57 CDTWorkstation Name: [id number] FUNCTION [id number] 16:07:06 * Test Item Value Reference Range Interpretation Comme nts TOTAL PROTEIN (BEAKER) (test code = 770) 8.0 gm/dL 6.4-8.3 ALBUMIN (BEAKER) (test code = 1145) 3.4 g/dL 3.1-4.5 BILIRUBIN TOTAL (BEAKER) (te st code = 377) 5.8 mg/dL 0.3-1.2 H BILIRUBIN DIRECT (BEAKER) (t est code = 706) 1.6 mg/dL 0.1-0.5 H ALKALINE PHOSPHATASE (BEAKER ) (test code = 346) 99 U/L 40-150 AST (SGOT) (BEAKER) (test co de = 353) 31 U/L 11-34 ALT (SGPT) (BEAKER) (test co de = 347) 9 U/L <34 Specimen moderately ictericPROTHROMBIN [id number] 16:06:55* Test Item Value Reference Range Interpretation Comme nts PROTIME (BEAKER) (test code = 759) 16.0 seconds 9.9-12.7 H INR (BEAKER) (test code = 370) 1.43 See Comment RECOMMENDED COUMADIN/WARFARIN INR THERAPY RANGESSTANDARD DOSE: 2.0 - 3.0 Includes: PROPHYLAXIS for venous thrombosis, systemic embolization; TREATMENT for venous thrombosis and/or pulmonary embolus.HIGH RISK: Target INR is 2.5-3.5 for patients with mechanical heart valves.Insurance Office Manager ID -[id number] 16:05:35 * Test Item Value Reference Range Interpretation Comme nts LIPASE (BEAKER) (test code = 749) 22 U/L <=60 Specimen moderately ictericBASIC METABOLIC [id number] 16:05:34* Test Item Value Reference Range Interpretation Comme nts SODIUM (BEAKER) (test code = 381) 133 meq/L 136-145 L POTASSIUM (BEAKER) (test code = 379) 3.8 meq/L 3.4-5.1 CHLORIDE (BEAKER) (test code = 382) 101 meq/L 98-107 CO2 (BEAKER) (test code = 355) 21 meq/L 22-29 L BLOOD UREA NITROGEN (BEAKER) (test code = 354) 6 mg/dL 10-20 L CREATININE (BEAKER) (test code = 358) 0.78 mg/dL 0.50-1.10 GLUCOSE RANDOM (BEAKER) (test code = 652) 121 mg/dL 70-105 H CALCIUM (BEAKER) (test code = 697) 8.9 mg/dL 8.4-10.2 EGFR (BEAKER) (test code = 1092) 90 mL/min/1.73 sq m Interpretation of eG FR values Stage Description Result G1 Normal or high >=90 G2 Mildly decreased 60-89 G3a Mildly to moderately 45-59 G3b Moderately to severely 30-44 G4 Severly decreased 15-29 G5 Kidney failure <15Reported eGFR is based on the CKD-EPI 2020 equation that does not use a race coefficientEstimated GFR is not as accurate as Creatinine Clearance in predicting glomerular filtration rate. Estimated GFR is not applicable for dialysis patients Specimen moderately ictericURINALYSIS W/ REFLEX URINE [id number] 15:55:32 * Test Item Value Reference Range Interpretation Comme nts COLOR (BEAKER) (test code = 470) Yellow CLARITY (BEAKER) (test code = 469) Clear SPECIFIC GRAVITY UA (BEAKER) (test code = 468) 1.016 1.001-1.035 PH UA (BEAKER) (test code = 467) 5.5 5.0-8.0 PROTEIN UA (BEAKER) (test co de = 464) Negative Negative GLUCOSE UA (BEAKER) (test co de = 365) Negative Negative KETONES UA (BEAKER) (test co de = 371) Negative Negative BILIRUBIN UA (BEAKER) (test code = 462) Negative Negative BLOOD UA (BEAKER) (test code = 461) Negative Negative NITRITE UA (BEAKER) (test co de = 465) Negative Negative LEUKOCYTE ESTERASE UA (BEAKE R) (test code = 466) Negative Negative UROBILINOGEN UA (BEAKER) (te st code = 463) 0.2 0.2-1.0 RBC UA (BEAKER) (test code = 519) 1 /HPF WBC UA (BEAKER) (test code = 520) < /HPF MUCUS (BEAKER) (test code = 1574) Few SQUAMOUS EPITHELIAL (BEAKER) (test code = 516) 1 /HPF HYALINE CASTS (BEAKER) (test code = 514) 23 /LPF SOURCE(BEAKER) (test code = 2795) Insurance Office Manager ID - [auto]Insurance Office Manager ID - techCBC W/PLT COUNT & AUTO DIFFERENTIAL 2025-03-25 15:45:33* Test Item Value Reference Range Interpretation Comme nts WHITE BLOOD CELL COUNT (BEAK ER) (test code = 775) 6.0 K/ L 3.5-10.5 RED BLOOD CELL COUNT (BEAKER ) (test code = 761) 3.76 M/ L 3.93-5.22 L HEMOGLOBIN (BEAKER) (test co de = 410) 12.8 GM/DL 11.2-15.7 HEMATOCRIT (BEAKER) (test co de = 411) 38.6 % 34.1-44.9 MEAN CORPUSCULAR VOLUME (LUCAS KER) (test code = 753) 103 fL 79-95 H MEAN CORPUSCULAR HEMOGLOBIN (BEAKER) (test code = 751) 34.0 pg 25.6-32.2 H MEAN CORPUSCULAR HEMOGLOBIN CONC (BEAKER) (test code = 752) 33.2 GM/DL 32.2-35.5 RED CELL DISTRIBUTION WIDTH (BEAKER) (test code = 412) 14.3 % 11.7-14.4 PLATELET COUNT (BEAKER) (troy t code = 756) 143 K/CU MM 150-450 L MEAN PLATELET VOLUME (BEAKER ) (test code = 754) 10.4 fL 9.4-12.3 NUCLEATED RED BLOOD CELLS (BEAKER) (test code = 413) 0 /100 WBC 0-0 NEUTROPHILS RELATIVE PERCENT (BEAKER) (test code = 429) 69 % LYMPHOCYTES RELATIVE PERCENT (BEAKER) (test code = 430) 16 % MONOCYTES RELATIVE PERCENT (BEAKER) (test code = 431) 11 % EOSINOPHILS RELATIVE PERCENT (BEAKER) (test code = 432) 3 % BASOPHILS RELATIVE PERCENT (BEAKER) (test code = 437) 1 % NEUTROPHILS ABSOLUTE COUNT (BEAKER) (test code = 670) 4.16 K/ L 1.56-6.13 LYMPHOCYTES ABSOLUTE COUNT (BEAKER) (test code = 414) 0.97 K/ L 1.18-3.74 L MONOCYTES ABSOLUTE COUNT (BE TACOS) (test code = 415) 0.66 K/ L 0.24-0.36 H EOSINOPHILS ABSOLUTE COUNT (BEAKER) (test code = 416) 0.15 K/ L 0.04-0.36 BASOPHILS ABSOLUTE COUNT (BE TACOS) (test code = 417) 0.04 K/ L 0.01-0.08 IMMATURE GRANULOCYTES-RELATI VE PERCENT (BEAKER) (test code = 2801) 0.30 % 0.00-1.00 DRUG MONITOR, PANEL 1, W/CONF, [id number] 13:49:51* Test Item Value Reference Range Interpretation Comme nts Amphetamines (test code = 13518-7) NEGATIVE <=500 Barbiturates (test code = 24794-7) NEGATIVE <=300 Benzodiazepines (test code = 91729-6) NEGATIVE <=100 Cocaine Metabolite (test code = 3393-6) NEGATIVE <=150 MARIJUANA METABOLITE (QUEST) (test code = 3426-4) NEGATIVE <=20 METHADONE METABOLITE (test code = 3773-9) NEGATIVE <=100 Opiates (test code = 67353-0) NEGATIVE <=100 Oxycodone (test code = 30524-2) NEGATIVE <=100 Phencyclidine (test code = 3936-2) NEGATIVE <=25 Creatinine (test code = 2160-0) 136.6 mg/dL See_Comment [Automated [employer] [place]] The system which generated this result transmitted reference range: > or = 20.0. The reference range was not used to interpret this result as normal/abnormal. pH (test code = 2756-5) 6.4 4.5-9.0 Oxidant (test code = 33838-8) NEGATIVE See_Comment [Automated [employer] [place]] The system which generated this result transmitted reference range: <200 mcg/mL. The reference range was not used to interpret this result as normal/abnormal. BLANCA (test code = BLANCA) [id number] [facility] HospitalNICOTINE METABOLITE [id number] 13:49:51* Test Item Value Reference Range Interpretation Comme nts NICOTINE SCREEN (test code = 962996070141) NONE DETECTED BLANCA (test code = BLANCA) [id number] [facility] HospitalDRUG MONITORING [id number] 13:49:51NOTES AND COMMENTSQuest DiagnosticsWadley Regional Medical CenterDRUG MONITORING [id number] 13:49:51NOTES AND COMMENTSQuest Diagnostics-[facility] HospitalAmylase2025-05-14 22:52:07* Test Item Value Reference Range Interpretation Comme nts Amylase, Serum (test code = 7172180) 48 U/L 21-101 BLANCA (test code = BLANCA) [id number] [facility] HospitalPROTHROMBIN TIME/[id number] 14:06:10* Test Item Value Reference Range Interpretation Comme nts PROTIME (BEAKER) (test code = 759) 15.6 seconds 9.9-12.7 H INR (BEAKER) (test code = 370) 1.39 See Comment RECOMMENDED COUMADIN/WARFARIN INR THERAPY RANGESSTANDARD DOSE: 2.0 - 3.0 Includes: PROPHYLAXIS for venous thrombosis, systemic embolization; TREATMENT for venous thrombosis and/or pulmonary embolus.HIGH RISK: Target INR is 2.5-3.5 for patients with mechanical heart valves.Insurance Office Manager ID -COMPREHENSIVE METABOLIC [id number] 14:01:09* Test Item Value Reference Range Interpretation Comme nts TOTAL PROTEIN (BEAKER) (test code = 770) 7.5 gm/dL 6.4-8.3 ALBUMIN (BEAKER) (test code = 1145) 3.2 g/dL 3.1-4.5 ALKALINE PHOSPHATASE (BEAKER) (test code = 346) 107 U/L 40-150 BILIRUBIN TOTAL (BEAKER) (test code = 377) 3.2 mg/dL 0.3-1.2 H SODIUM (BEAKER) (test code = 381) 139 meq/L 136-145 POTASSIUM (BEAKER) (test code = 379) 5.0 meq/L 3.4-5.1 CHLORIDE (BEAKER) (test code = 382) 107 meq/L 98-107 CO2 (BEAKER) (test code = 355) 25 meq/L 22-29 BLOOD UREA NITROGEN (BEAKER) (test code = 354) 6 mg/dL 10-20 L CREATININE (BEAKER) (test code = 358) 0.62 mg/dL 0.50-1.10 GLUCOSE RANDOM (BEAKER) (test code = 652) 103 mg/dL 70-105 CALCIUM (BEAKER) (test code = 697) 9.6 mg/dL 8.4-10.2 AST (SGOT) (BEAKER) (test code = 353) 32 U/L 11-34 ALT (SGPT) (BEAKER) (test code = 347) 10 U/L <34 EGFR (BEAKER) (test code = 1092) 105 mL/min/1.73 sq m Interpretation of eG FR values Stage Description Result G1 Normal or high >=90 G2 Mildly decreased 60-89 G3a Mildly to moderately 45-59 G3b Moderately to severely 30-44 G4 Severly decreased 15-29 G5 Kidney failure <15Reported eGFR is based on the CKD-EPI 2020 equation that does not use a race coefficientEstimated GFR is not as accurate as Creatinine Clearance in predicting glomerular filtration rate. Estimated GFR is not applicable for dialysis patients Specimen slightly ictericBILIRUBIN, [id number] 14:00:33* Test Item Value Reference Range Interpretation Comme nts BILIRUBIN DIRECT (BEAKER) (t est code = 706) 1.5 mg/dL 0.1-0.5 H [id number] 14:00:33* Test Item Value Reference Range Interpretation Comme nts LIPASE (BEAKER) (test code = 749) 54 U/L <=60 Specimen slightly ictericCBC W/PLT COUNT & AUTO [id number] 13:45:27 * Test Item Value Reference Range Interpretation Comme nts WHITE BLOOD CELL COUNT (BEAK ER) (test code = 775) 5.4 K/ L 3.5-10.5 RED BLOOD CELL COUNT (BEAKER ) (test code = 761) 3.64 M/ L 3.93-5.22 L HEMOGLOBIN (BEAKER) (test co de = 410) 12.5 GM/DL 11.2-15.7 HEMATOCRIT (BEAKER) (test co de = 411) 38.1 % 34.1-44.9 MEAN CORPUSCULAR VOLUME (LUCAS KER) (test code = 753) 105 fL 79-95 H MEAN CORPUSCULAR HEMOGLOBIN (BEAKER) (test code = 751) 34.3 pg 25.6-32.2 H MEAN CORPUSCULAR HEMOGLOBIN CONC (BEAKER) (test code = 752) 32.8 GM/DL 32.2-35.5 RED CELL DISTRIBUTION WIDTH (BEAKER) (test code = 412) 14.6 % 11.7-14.4 H PLATELET COUNT (BEAKER) (troy t code = 756) 144 K/CU MM 150-450 L MEAN PLATELET VOLUME (BEAKER ) (test code = 754) 10.1 fL 9.4-12.3 NUCLEATED RED BLOOD CELLS (BEAKER) (test code = 413) 0 /100 WBC 0-0 NEUTROPHILS RELATIVE PERCENT (BEAKER) (test code = 429) 59 % LYMPHOCYTES RELATIVE PERCENT (BEAKER) (test code = 430) 27 % MONOCYTES RELATIVE PERCENT (BEAKER) (test code = 431) 10 % EOSINOPHILS RELATIVE PERCENT (BEAKER) (test code = 432) 3 % BASOPHILS RELATIVE PERCENT (BEAKER) (test code = 437) 1 % NEUTROPHILS ABSOLUTE COUNT (BEAKER) (test code = 670) 3.17 K/ L 1.56-6.13 LYMPHOCYTES ABSOLUTE COUNT (BEAKER) (test code = 414) 1.46 K/ L 1.18-3.74 MONOCYTES ABSOLUTE COUNT (BE TACOS) (test code = 415) 0.54 K/ L 0.24-0.36 H EOSINOPHILS ABSOLUTE COUNT (BEAKER) (test code = 416) 0.16 K/ L 0.04-0.36 BASOPHILS ABSOLUTE COUNT (BE TACOS) (test code = 417) 0.06 K/ L 0.01-0.08 IMMATURE GRANULOCYTES-RELATI VE PERCENT (BEAKER) (test code = 2801) 0.20 % 0.00-1.00 COMPREHENSIVE METABOLIC [id number] 08:32:34* Test Item Value Reference Range Interpretation Comme nts TOTAL PROTEIN (BEAKER) (test code = 770) 6.0 gm/dL 5.7-8.2 Specimen slightl y hemolyzed ALBUMIN (BEAKER) (test code = 1145) 2.9 g/dL 3.5-5.0 L Specimen slig htly hemolyzed ALKALINE PHOSPHATASE (BEAKER) (test code = 346) 91 U/L 40-150 BILIRUBIN TOTAL (BEAKER) (test code = 377) 4.3 mg/dL 0.2-1.2 H Specimen slightl y hemolyzed SODIUM (BEAKER) (test code = 381) 139 meq/L 136-145 POTASSIUM (BEAKER) (test code = 379) 4.6 meq/L 3.5-5.1 Specimen sligh tly hemolyzed CHLORIDE (BEAKER) (test code = 382) 108 meq/L 98-107 H CO2 (BEAKER) (test code = 355) 25 meq/L 22-29 BLOOD UREA NITROGEN (BEAKER) (test code = 354) < mg/dL 7-21 L CREATININE (BEAKER) (test code = 358) 0.65 mg/dL 0.57-1.25 Specimen slightl y hemolyzed GLUCOSE RANDOM (BEAKER) (test code = 652) 137 mg/dL 70-105 H CALCIUM (BEAKER) (test code = 697) 8.0 mg/dL 8.4-10.2 L AST (SGOT) (BEAKER) (test code = 353) 38 U/L 5-34 H Specimen slightl y hemolyzed ALT (SGPT) (BEAKER) (test code = 347) 10 U/L 6-55 Specimen slightl y hemolyzed EGFR (BEAKER) (test code = 1092) 104 mL/min/1.73 sq m Interpretation of eG FR values Stage Description Result G1 Normal or high >=90 G2 Mildly decreased 60-89 G3a Mildly to moderately 45-59 G3b Moderately to severely 30-44 G4 Severly decreased 15-29 G5 Kidney failure <15Reported eGFR is based on the CKD-EPI 2020 equation that does not use a race coefficientEstimated GFR is not as accurate as Creatinine Clearance in predicting glomerular filtration rate. Estimated GFR is not applicable for dialysis patients Specimen slightly ictericCBC W/PLT COUNT & AUTO [id number] 08:20:34 * Test Item Value Reference Range Interpretation Comme nts WHITE BLOOD CELL COUNT (BEAKER) (test code = 775) 4.5 K/ L 3.5-10.5 RED BLOOD CELL COUNT (BEAKER) (test code = 761) 3.14 M/ L 3.93-5.22 L HEMOGLOBIN (BEAKER) (test code = 410) 11.0 GM/DL 11.2-15.7 L HEMATOCRIT (BEAKER) (test code = 411) 33.5 % 34.1-44.9 L MEAN CORPUSCULAR VOLUME (BEAKER) (test code = 753) 107 fL 79-95 H Discordant resul ts compared to previous results; clinical correlation required MEAN CORPUSCULAR HEMOGLOBIN (BEAKER) (test code = 751) 35.0 pg 25.6-32.2 H MEAN CORPUSCULAR HEMOGLOBIN CONC (BEAKER) (test code = 752) 32.8 GM/DL 32.2-35.5 RED CELL DISTRIBUTION WIDTH (BEAKER) (test code = 412) 14.1 % 11.7-14.4 PLATELET COUNT (BEAKER) (test code = 756) 129 K/CU MM 150-450 L MEAN PLATELET VOLUME (BEAKER) (test code = 754) 10.5 fL 9.4-12.3 NEUTROPHILS RELATIVE PERCENT (BEAKER) (test code = 429) 64 % LYMPHOCYTES RELATIVE PERCENT (BEAKER) (test code = 430) 22 % MONOCYTES RELATIVE PERCENT (BEAKER) (test code = 431) 12 % EOSINOPHILS RELATIVE PERCENT (BEAKER) (test code = 432) 2 % BASOPHILS RELATIVE PERCENT (BEAKER) (test code = 437) 0 % NEUTROPHILS ABSOLUTE COUNT (BEAKER) (test code = 670) 2.89 K/ L 1.56-6.13 LYMPHOCYTES ABSOLUTE COUNT (BEAKER) (test code = 414) 0.98 K/ L 1.18-3.74 L MONOCYTES ABSOLUTE COUNT (BEAKER) (test code = 415) 0.53 K/ L 0.24-0.36 H EOSINOPHILS ABSOLUTE COUNT (BEAKER) (test code = 416) 0.11 K/ L 0.04-0.36 BASOPHILS ABSOLUTE COUNT (BEAKER) (test code = 417) 0.02 K/ L 0.01-0.08 IMMATURE GRANULOCYTES-RELATIVE PERCENT (BEAKER) (test code = 2801) 0.20 % 0.00-1.00 CT ABDOMEN/PELVIS WITH IV CONTRAST Standard [id number] 00:13:23 TECHNIQUE: CT of the abdomen and pelvis WITH intravenous contrast andWITHOUT oral contrast. Dose modulation, iterative reconstruction, and/orweight-based adjustment of the mA/kV was utilized to reduce theradiation dose to as low as reasonably achievable. INDICATION: Periumbilical abdominal pain; hxcirrhosis. COMPARISON: 02/14/2025. FINDINGS: LOWER THORAX: Unremarkable. HEPATOBILIARY: Nodular contour liver. No focal hepatic lesions.Gallbladder is surgically absent. No biliary ductal dilatation.SPLEEN: Spleen is 15.9 cm in length.PANCREAS: There is mild stranding and edema adjacent to the pancre atichead decreased compared prior. No organized collection or soft tissuegas. No focal masses or ductal dilatation. ADRENALS: No adrenal nodules.KIDNEYS/URETERS: No hydronephrosis, stones, or masses.PELVIC ORGANS/BLADDER: Unremarkable bladder. Uterus is absent. PERITONEUM/RETROPERITONEUM: No free air or fluid.LYMPH NODES: No lymphadenopathy.VESSELS: Unremarkable. GI TRACT: No distention or wall thickening. Appendix is absent. BONES AND SOFT TISSUES: No acute osseous abnormality. Soft tissues areunremarkable.[facility] IV [id number] 00:13:23 [facility] : 1970 Sex: FTECHNIQUE: CT of the abdomen and pelvis WITH intravenous contrast andWITHOUT oral contrast. Dose modulation, iterative reconstruction, and/orweight-based adjustment of the mA/kV was utilized to reduce theradiation dose to as low as reasonably achievable.INDICATION: Periumbilical abdominal pain; hx cirrhosis.COMPARISON: 02/14/2025.FINDINGS:LOWER THORAX: Unremarkable.HEPATOBILIARY: Nodular contour liver. No focal hepatic lesions.Gallbladder is surgically absent. No biliary ductal dilatation.SPLEEN: Spleen is 15.9 cm in length.PANCREAS: There is mild stranding and edema adjacent to the pancreatichead decreased compared prior. No organized collection or soft tissuegas. No focal masses or ductal dilatation.ADRENALS: No adrenal nodules.KIDNEYS/URETERS: No hydronephrosis, stones, or masses.PELVIC ORGANS/BLADDER: Unremarkable bladder. Uterus is absent.PERITONEUM/RETROPERITONEUM: No free air or fluid.LYMPH NODES: No lymphadenopathy.VESSELS: Unremarkable.GI TRACT: No distention or wall thickening. Appendix is absent.BONES AND SOFT TISSUES: No acute osseous abnormality. Soft tissues areunremarkable.IMPRESSION:1. Mild peripancreatic stranding adjacent to the pancreatic headdecreased compared to prior suggestive of resolving or recurrentpancreatitis. Correlate with serology.2.Nodular liver contour concerning for chronic hepatocellular diseaseand splenomegaly similar to prior likely sequela of portal hypertension.Electronically Signed By: Jonna Marroquin03/06/2025 00:15 CDTWorkstation Name: [id number] w/Microscopic + Reflex to [id number] 22:33:09* Test Item Value Reference Range Interpretation Comme nts Color, UA (test code = 5778-6) Light Yellow Clarity, UA (test code = 5767-9) Clear Specific Hathaway, UA (test code = 5811-5) 1.007 1.001-1.035 pH, UA (test code = 5803-2) 7 5.0-8.0 Protein, UA (test code = 91735-8) Negative Negative Glucose, UA (test code = 365) Negative Negative Ketones, UA (test code = 2514-8) Negative Negative Bilirubin, UA (test code = 81299-2) Negative Negative Blood, UA (test code = 77810-2) Negative Negative Nitrite, UA (test code = 5802-4) Negative Negative Leukocytes, UA (test code = 5799-2) Negative Negative Urobilinogen, UA (test code = 34813-8) 0.2 0.2-1.0 RBC, UA (test code = 04764-9) See_Comment [Automated [employer]] The system which generated this result transmitted reference range: /HPF. The reference range was not used to interpret this result as normal/abnormal. WBC, UA (test code = 5821-4) 2 See_Comment [Automated [employer] ge] The system which generated this result transmitted reference range: /HPF. The reference range was not used to interpret this result as normal/abnormal. Squam Epithel, UA (test code = 45359-0) 3 See_Comment [Automated [employer] [place]] The system which generated this result transmitted reference range: /HPF. The reference range was not used to interpret this result as normal/abnormal. Specimen Source (test code = 2795) BLANCA (test code = BLANCA) Insurance Office Manager ID - [auto]Insurance Office Manager ID - tech [facility] URINE [id number] 22:33:09 * Test Item Value Reference Range Interpretation Comme nts COLOR (BEAKER) (test code = 470) Light Yellow CLARITY (BEAKER) (test code = 469) Clear SPECIFIC GRAVITY UA (BEAKER) (test code = 468) 1.007 1.001-1.035 PH UA (BEAKER) (test code = 467) 7.0 5.0-8.0 PROTEIN UA (BEAKER) (test co de = 464) Negative Negative GLUCOSE UA (BEAKER) (test co de = 365) Negative Negative KETONES UA (BEAKER) (test co de = 371) Negative Negative BILIRUBIN UA (BEAKER) (test code = 462) Negative Negative BLOOD UA (BEAKER) (test code = 461) Negative Negative NITRITE UA (BEAKER) (test co de = 465) Negative Negative LEUKOCYTE ESTERASE UA (BEAKE R) (test code = 466) Negative Negative UROBILINOGEN UA (BEAKER) (te st code = 463) 0.2 0.2-1.0 RBC UA (BEAKER) (test code = 519) < /HPF WBC UA (BEAKER) (test code = 520) 2 /HPF SQUAMOUS EPITHELIAL (BEAKER) (test code = 516) 3 /HPF SOURCE(BEAKER) (test code = 2795) Insurance Office Manager ID - [auto]Insurance Office Manager ID - techHEPATIC FUNCTION [id number] 20:33:55 * Test Item Value Reference Range Interpretation Comme nts TOTAL PROTEIN (BEAKER) (test code = 770) 7.2 gm/dL 6.4-8.3 Specimen sligh tly hemolyzed ALBUMIN (BEAKER) (test code = 1145) 3.0 g/dL 3.1-4.5 L Specimen slightl y hemolyzed BILIRUBIN TOTAL (BEAKER) (test code = 377) 3.3 mg/dL 0.3-1.2 H Specimen slightl y hemolyzed BILIRUBIN DIRECT (BEAKER) (test code = 706) 1.4 mg/dL 0.1-0.5 H Specimen slightl y hemolyzed ALKALINE PHOSPHATASE (BEAKER) (test code = 346) 123 U/L 40-150 AST (SGOT) (BEAKER) (test code = 353) 41 U/L 11-34 H Specimen sligh tly hemolyzed ALT (SGPT) (BEAKER) (test code = 347) 11 U/L <34 Specimen sligh tly hemolyzed Specimen slightly ictericBASIC METABOLIC [id number] 20:30:15* Test Item Value Reference Range Interpretation Comme nts SODIUM (BEAKER) (test code = 381) 133 meq/L 136-145 L POTASSIUM (BEAKER) (test code = 379) 4.3 meq/L 3.4-5.1 Specimen slightl y hemolyzed CHLORIDE (BEAKER) (test code = 382) 103 meq/L 98-107 CO2 (BEAKER) (test code = 355) 23 meq/L 22-29 BLOOD UREA NITROGEN (BEAKER) (test code = 354) 5 mg/dL 10-20 L CREATININE (BEAKER) (test code = 358) 0.57 mg/dL 0.50-1.10 Specimen slightl y hemolyzed GLUCOSE RANDOM (BEAKER) (test code = 652) 91 mg/dL 70-105 CALCIUM (BEAKER) (test code = 697) 9.3 mg/dL 8.4-10.2 EGFR (BEAKER) (test code = 1092) 107 mL/min/1.73 sq m Interpretation of eG FR values Stage Description Result G1 Normal or high >=90 G2 Mildly decreased 60-89 G3a Mildly to moderately 45-59 G3b Moderately to severely 30-44 G4 Severly decreased 15-29 G5 Kidney failure <15Reported eGFR is based on the CKD-EPI 2020 equation that does not use a race coefficientEstimated GFR is not as accurate as Creatinine Clearance in predicting glomerular filtration rate. Estimated GFR is not applicable for dialysis patients Specimen slightly [id number] 20:30:15* Test Item Value Reference Range Interpretation Comme nts LIPASE (BEAKER) (test code = 749) 41 U/L <=60 Specimen slightly ictericCBC W/PLT COUNT & AUTO [id number] 19:58:25 * Test Item Value Reference Range Interpretation Comme nts WHITE BLOOD CELL COUNT (BEAK ER) (test code = 775) 6.5 K/ L 3.5-10.5 RED BLOOD CELL COUNT (BEAKER ) (test code = 761) 3.56 M/ L 3.93-5.22 L HEMOGLOBIN (BEAKER) (test co de = 410) 12.2 GM/DL 11.2-15.7 HEMATOCRIT (BEAKER) (test co de = 411) 36.1 % 34.1-44.9 MEAN CORPUSCULAR VOLUME (LUCAS KER) (test code = 753) 101 fL 79-95 H MEAN CORPUSCULAR HEMOGLOBIN (BEAKER) (test code = 751) 34.3 pg 25.6-32.2 H MEAN CORPUSCULAR HEMOGLOBIN CONC (BEAKER) (test code = 752) 33.8 GM/DL 32.2-35.5 RED CELL DISTRIBUTION WIDTH (BEAKER) (test code = 412) 14.2 % 11.7-14.4 PLATELET COUNT (BEAKER) (troy t code = 756) 167 K/CU MM 150-450 MEAN PLATELET VOLUME (BEAKER ) (test code = 754) 10.2 fL 9.4-12.3 NUCLEATED RED BLOOD CELLS (BEAKER) (test code = 413) 0 /100 WBC 0-0 NEUTROPHILS RELATIVE PERCENT (BEAKER) (test code = 429) 63 % LYMPHOCYTES RELATIVE PERCENT (BEAKER) (test code = 430) 23 % MONOCYTES RELATIVE PERCENT (BEAKER) (test code = 431) 10 % EOSINOPHILS RELATIVE PERCENT (BEAKER) (test code = 432) 4 % BASOPHILS RELATIVE PERCENT (BEAKER) (test code = 437) 1 % NEUTROPHILS ABSOLUTE COUNT (BEAKER) (test code = 670) 4.05 K/ L 1.56-6.13 LYMPHOCYTES ABSOLUTE COUNT (BEAKER) (test code = 414) 1.46 K/ L 1.18-3.74 MONOCYTES ABSOLUTE COUNT (BE TACOS) (test code = 415) 0.63 K/ L 0.24-0.36 H EOSINOPHILS ABSOLUTE COUNT (BEAKER) (test code = 416) 0.24 K/ L 0.04-0.36 BASOPHILS ABSOLUTE COUNT (BE TACOS) (test code = 417) 0.05 K/ L 0.01-0.08 IMMATURE GRANULOCYTES-RELATI VE PERCENT (BEAKER) (test code = 2801) 0.30 % 0.00-1.00 Tissue [id number] 10:46:15* Test Item Value Reference Range Interpretation Comme nts Case Report (test code = 104) Surgical Pathology Report Case: [id number] Authorizing Provider: Bairon Hansen MD Collected: 02/28/2025 12:23 PM Ordering Location: [facility] OT ENDOSCOPY Received: 02/28/2025 07:15 PM SERVICES Pathologist: Fabienne Whitt MD Specimen: Stomach, Antrum, bx r/o H-Pylori DIAGNOSIS (test code = 3220) [id number] FuZzEwMzNcZnRuYmpcdWMx EDmvgoVqFWrlqDikRSQ5YI QtPL7lqVipnEi8tAisYXDt ogQ9vTWpHKaka1buNDZ4t9 nrlmkhGFPbUMgnFn3aoYUt mPimNdHiQVXmDQv4gI26SM XbzS2acVOnMRz3RULoyDKv weFoBkBgHZZdaOFmcIT2LP WkGP1hsyugIYwxPAvpSKYi juD6CSCafOJkZ8SyZJAvHE 0hkzocWTC7HEfcGBBrEKU5 JnCkXSNqo0Omhyz5HkZbuH FyZFxwbGFpblxmczIwIFNU D94NH8ijDLZSB8KXDXlhnM RfVQYfguEaG0BlqZKmBmOm ypXxAKxuTU73B23zCOY4rG RgZS8qmSMzD8irp39bCxNr CTI5zop8sGHgBWmrIYA8zO AjBASjfoZpGk9zYT6roEgi u0NhVS6kV7FolLNrcvKkTB GjcJbmbLYdGLQ7ESNtlPOw kfJqn2XwuM8caJSolFzngc QaLQthr5CtFYbfYJKmLD9w cPtcIYZmWN9oSCYgA2eavC 4vlse4VaYuITMxDsG5AEYo ymT4Cse1ALNtXTihe3lpp8 EsDYFiYPr9hGfjKxUqDJHh v6mkryKaMiYqVZQhQYWxTD IojUEaN968q3duk9iqbtOf eRR6BIVgYCU7HXbmwiZuws M2HUtjrUQdMqT6PSvegzGx QFkxbeLdgoLdDnd8JFNiF8 49PNW1dJsbx8geECF9XKVk UEUbRjOxPi9zmZVuB639WB FqHRRLSXItgTm7KADjimTb lvKuuDZDr636A339n0wuFD PsvuXpbOzJjobja6jvZ101 XHBhcGVydzEyMjQwXHBhcG PujHT2HKZoST3hcpqsZIkl OZudKPFhsuE2QZFsoWTqZ5 XgMZGnVE6ieyjsGKA2UHlc MTDbBND0OkDqEPXse1Lfoz j4PuHhzm5xhx12NIO5b5Qm lCwwFYF7VIZ3TyShJg3iaG RzKLZjEX3jEtKhhUFmHTBw lh30aJqqDErjLEM9ZEGtzs Hnk6Nge9rpAfXuswUuU1bg I2PkOKZuYDCzHEAsIsGdsy Tlc2Jnh0WmdYHhtSb2m8cr BDKaEDLufGkrh2lmMQV2IW XmcWYrE9aatX2dKZTcNJ1d tktco4ckEQclSIsiVNZxlB X4iyX1ZDNevNCzM1RveD5h TPJjVCplOZIfncg0CoQdRd 9vdGVyeTcyMFxzYmtwYWdl XHBnbmNvbnRccGduZGVjXH BsYWluXHBsYWluXGYwXGZz MjRccWxcbGFuZzEwMzNcaG ljaFxmMVxkYmNoXGYxXGxv O7wvLoZzIhBuXyw9BCIyfM KqEITkZeb7UPIbjWDxFDGD qXtwiR5vVYPnnPxioW8swB M5RAZzktPjtNLTzR2bPTUL pL6kEdW3AAVoDwu1MLB1Ms FccGFyfX0= CPT Code(s) (test code = 3357) f7nsrQDvJIRhlENjQKoiUo dyxhWvCEMahQPrT9Lpgoff MAewNZ1uWU9stZiafEApoR LuHPXjFwFqo0asu012qMYc s9cpPNPGfaltoHg2gBqkU5 3gw8Q2CepwX28rcQOaBSE7 NMTlDLPdcJIgPVOjSMW0LE OsySTsD2odALHhSR5zvhxw XQtoSDuxXLMeeHI8MEAtvX LiK4AaJQInVJjaULWbznz3 DnXeXp4ojQFxhMicACzrVY JkXHBsYWluXGZzMjAgODgz MDVccGFyfQ== CLINICAL HISTORY (test code = 3356) z8mlcKCsBSWekBTsCIiiOg iynxGdTDQwwYDeD5Qdjpgn GYfqSQ8qCO4ruVxbbPUqvD RaCKDqCrWag7dcf906fGDk v1kjGLWYuyszhTo2yIteE7 1us9K6VzjqV55jwUMvVFZ3 TXDpDLZwgEKfARWyMFD8TY YhlPIoZ8tcPHZuWU7eksjb KEcdPKkfMXJelJY1AGUriL HeP8KwNPTzIJwqTBYszer8 UvOxRh5pqUFpyVnuYZqvHU JkXHBsYWluXGZzMjAgRXNv aYpiA1FhkQU5LSXtS3BkTD dpdGhvdXQgYmxlZWRpbmcg KEhDQylcbGluZSBFbmNvdW 30ZNVqRl4oDTWnlaZnbxqa AaNxg3BmfFDjkNyfYB29WR 9qo4UoBCQcGF4bOODtaK3a IFxwYXJ9 GROSS DESCRIPTION (test code = 1797128334) x4qsbJRrRNLkcVFVISM5OT AoDD2vsXmazCx7uWstROIa blM2xYQpJWqia3otCDP4x2 plkpLJDqwbEZJbHI7rKHmh FHVqXR6hIgItRTUlWvEhGE BhcGVydzEyMjQwXHBhcGVy qOD0EYWbAP1heoreDMamSK ojENTruoO9QVQwrKFcW2Rp VRCgPP2gripyLVG4VXGZQq lkIi8laBNoeEMGPsesFoUd GuFtDUIaNMJpOVAlu5pyxs KCwxcorOz2JAv6UGNqZCIl rVXjz6S4GTyrg4xzo6XlMM XqQ1VxulNPKTJmRln2gC9O n1apj5aybgTfrYutbjIeEM ficbRqiuVdUfj4QLN8wR1J LHBpD2JgCB1Dp3vyASTnfB OfZJX1CGfon8xnNMksNKB4 SFWuNGNsHCLlZQ7XRiXcEK RlWKsvSxseSsK4ANm5POMW CAEyJjD7NzP4OUJ3ENp9TU QvSC8dPMmfiOFzPNvgKiao YQmyF081WLgdQKDlU4FjM3 QgXFxzZyBcXGlkIDUxMDAy MVsgQXLaU9QMXEYkWqGuVC V8SZVpQHg5YLj8IL0CZuTg NBP3VjxuACo5SXYoMKm0BR ilML3ACAUiUXjjEgp8KFSk VBZfZBOeKXk3SQQwRRrytg UnRFtiTkemFCxxN96erHXo ZCANClxwbGFpblxmMVxmcz XfFVVjWMD5f03mP2trDXAS mcKulP9ckWHxS8zbGeBhvU GkUQ1HBCQyjcVbYQeltFgr rJ6ptZYcG2rePbMqOfqfwS ljTmVzdERvYzEgDQpcbHRy zGHuJW9MGVBrFNDvXGlyed ToFSCdO4UbdhYtICnbNLJs wo8qbRszEGldFkWlOHErc7 j4nNA2ySDgfQE5yNKtiJuv PjKuNQ8twEPuUC2xJSlsVJ afigWfz1XxLU58kPTivfDa diYiOEZ9WcBdCPujKALiE9 ZiUPJ7j42rO9eiLFDxbYO0 zSByzCCtB87dEE4LzAdavn yvCSQvJRKxXPDGkIYym76r uGT4scRuLhMnBTWqIgTspX A4KQ4obCjwigudxYDoTLn3 jLIbEPCrEqPtfBzca2XsTZ PePKbuUU99BGabaWIiFIzt TMD7Kc8gtZUgNFFynfT2i1 RvIGluIEExLiAgQUtccGFy CT7EJUHqnrGVKpkwXJArGD FsyNAIt1MdQJCNKkgnZxJr ZnMyMiANClxlcGljTmVzdE ZdEwC8PCErtHHkRVC1PR3p tAedWIIjY7UkX7MlryG7ND PeqvGXZotfCAUcAY4HATGm FAxqPJ7LfT== [facility] HospitalTISSUE [id number] 10:46:15Surgical Pathology Report Case: [id number] Authorizing Provider: Bairon Hansen MD Collected: 02/28/2025 12:23 PM Ordering Location: [facility] Received: 02/28/2025 07:15 PM SERVICES Pathologist: Fabienne Whitt MD Specimen: Stomach, Antrum, bx r/o H-Pylori STOMACH, BIOPSY:-Gastric antral mucosa with mild chronic gastritis, inactive-No H. 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 Stomach, AntrumReceived in formalin labeled with the patient's name, medical record number and "Stomach, Antrum bx r/o H-Pylori." It consists of a 0.3 cm woody-pink, irregular soft tissue fragment which is submitted in toto in A1. AKCT brain without IV [id number] 15:26:56CT Head without contrast CLINICAL HISTORY: Stroke, follow up TECHNIQUE: Contiguous axial CT images through the head without contrast.This exam was performed according to the departmental dose optimizationprogram which includes automated exposure control, adjustment of the mAand/or kV according to the patient size, and/or use of an iterativereconstruction technique. COMPARISON: None FINDINGS: There is no CT evidence of acute infarct or intracranial hemorrhage.There is mild generalized parenchymal volume loss without hydrocephalus,midline shift, or apparent mass effect. There are no extra-axialfluidcollections. The skull is intact. The visualized paranasal sinuses arewell-aerated.[facility] [id number] 15:26:56 [facility] : 1970 Sex: FCT Head without contrastCLINICAL HISTORY: Stroke, follow up TECHNIQUE: Contiguous axial CT images through the head without contrast.This exam was performed according to the departmental dose optimizationprogram which includes automated exposure control, adjustment of the mAand/or kVaccording to the patient size, and/or use of an iterativereconstruction technique.COMPARISON: NoneFINDINGS:There is no CT evidence of acute infarct or intracranial hemorrhage.There is mild generalized parenchymal volume loss without hydrocephalus,midline shift, or apparent mass effect. There are noextra-axial fluidcollections. The skull is intact. The visualized paranasal sinuses arewell-aerated. IMPRESSION:No CT evidence of acute infarct, hemorrhage, or hydrocephalus.Electronically Signed By:Antonio Hylton04/ 15:28 CDTWorkstation Name: [id number] tolerance(Non- Nuclear Treadmill)2025-02-21 23:04:00Protocol Name Lexiscan Time In Exercise Phase 00:01:00 Max. Systolic BP 119 mmHgMax Diastolic BP 75mmHgMax Heart Rate 87 BPMMax Predicted Heart Rate 165 BPMReason For Termination Predetermined end po int Reason for Test Liver transplant evaluation Target HR Formula (220 - Age)*100% Arrhythmias Atrial premature beats:Sinus Arrhythmia Resting ECG Normal sinus rhythm ST Changes No Significant Changes Overall Impression Indeterminate due to pharmacological stress Chest Pain none HR Response To Exercise BP Response To Exercise Lasix,Keppra,Protonix,Spironolocatone Confirmed by MD Duran Mahboob ([id number]) on 02/21/2025 11:03:55 [facility]2025-02-21 23:04:00Protocol Name Lexiscan Time In Exercise Phase 00:01:00 Max. Systolic BP 119 mmHgMax Diastolic BP 75mmHgMax Heart Rate 87 BPMMax Predicted Heart Rate 165 BPMReason For Termination Predetermined end point Reason for Test Liver transplant evaluation Target HR Formula (220 - Age)*100% Arrhythmias Atrial premature beats:Sinus Arrhythmia Resting ECG Normal sinus rhythm ST Changes No Significant Changes Overall Impression Indeterminate due to pharmacological stress Chest Pain none HR Response To Exercise BP Response To Exercise Lasix,Keppra,Protonix,Spironolocatone Confirmed by MD Roger, Errol ([id number]) on 02/21/2025 11:03:55 [facility] -[id number] 09:04:25Ordered by an unspecified provider.[facility] -[id number] 09:04:25Ordered by an unspecified provider.[facility] HospitalHEPATIC FUNCTION [id number] 06:17:26* Test Item Value Reference Range Interpretation Comme nts TOTAL PROTEIN (BEAKER) (test code = 770) 6.4 gm/dL 6.4-8.3 ALBUMIN (BEAKER) (test code = 1145) 2.6 g/dL 3.1-4.5 L BILIRUBIN TOTAL (BEAKER) (te st code = 377) 4.0 mg/dL 0.3-1.2 H BILIRUBIN DIRECT (BEAKER) (t est code = 706) 1.9 mg/dL 0.1-0.5 H ALKALINE PHOSPHATASE (BEAKER ) (test code = 346) 82 U/L 40-150 AST (SGOT) (BEAKER) (test co de = 353) 41 U/L 11-34 H ALT (SGPT) (BEAKER) (test co de = 347) 14 U/L <34 Specimen moderately ictericBASIC METABOLIC [id number] 06:17:06* Test Item Value Reference Range Interpretation Comme nts SODIUM (BEAKER) (test code = 381) 142 meq/L 136-145 POTASSIUM (BEAKER) (test code = 379) 4.2 meq/L 3.4-5.1 CHLORIDE (BEAKER) (test code = 382) 106 meq/L 98-107 CO2 (BEAKER) (test code = 355) 24 meq/L 22-29 BLOOD UREA NITROGEN (BEAKER) (test code = 354) 3 mg/dL 10-20 L CREATININE (BEAKER) (test code = 358) 0.62 mg/dL 0.50-1.10 GLUCOSE RANDOM (BEAKER) (test code = 652) 119 mg/dL 70-105 H CALCIUM (BEAKER) (test code = 697) 8.5 mg/dL 8.4-10.2 EGFR (BEAKER) (test code = 1092) 105 mL/min/1.73 sq m Interpretation of eG FR values Stage Description Result G1 Normal or high >=90 G2 Mildly decreased 60-89 G3a Mildly to moderately 45-59 G3b Moderately to severely 30-44 G4 Severly decreased 15-29 G5 Kidney failure <15Reported eGFR is based on the CKD-EPI 2021 equation that does not use a race coefficientEstimated GFR is not as accurate as Creatinine Clearance in predicting glomerular filtration rate. Estimated GFR is not applicable for dialysis patients Specimen moderately ictericCBC W/PLT COUNT & AUTO [id number] 05:52:50* Test Item Value Reference Range Interpretation Comme nts WHITE BLOOD CELL COUNT (BEAK ER) (test code = 775) 4.9 K/ L 3.5-10.5 RED BLOOD CELL COUNT (BEAKER ) (test code = 761) 3.32 M/ L 3.93-5.22 L HEMOGLOBIN (BEAKER) (test co de = 410) 11.7 GM/DL 11.2-15.7 HEMATOCRIT (BEAKER) (test co de = 411) 34.1 % 34.1-44.9 MEAN CORPUSCULAR VOLUME (LUCAS KER) (test code = 753) 103 fL 79-95 H MEAN CORPUSCULAR HEMOGLOBIN (BEAKER) (test code = 751) 35.2 pg 25.6-32.2 H MEAN CORPUSCULAR HEMOGLOBIN CONC (BEAKER) (test code = 752) 34.3 GM/DL 32.2-35.5 RED CELL DISTRIBUTION WIDTH (BEAKER) (test code = 412) 13.2 % 11.7-14.4 PLATELET COUNT (BEAKER) (troy t code = 756) 136 K/CU MM 150-450 L MEAN PLATELET VOLUME (BEAKER ) (test code = 754) 9.9 fL 9.4-12.3 NUCLEATED RED BLOOD CELLS (BEAKER) (test code = 413) 0 /100 WBC 0-0 NEUTROPHILS RELATIVE PERCENT (BEAKER) (test code = 429) 65 % LYMPHOCYTES RELATIVE PERCENT (BEAKER) (test code = 430) 20 % MONOCYTES RELATIVE PERCENT (BEAKER) (test code = 431) 10 % EOSINOPHILS RELATIVE PERCENT (BEAKER) (test code = 432) 4 % BASOPHILS RELATIVE PERCENT (BEAKER) (test code = 437) 1 % NEUTROPHILS ABSOLUTE COUNT (BEAKER) (test code = 670) 3.16 K/ L 1.56-6.13 LYMPHOCYTES ABSOLUTE COUNT (BEAKER) (test code = 414) 1.00 K/ L 1.18-3.74 L MONOCYTES ABSOLUTE COUNT (BE TACOS) (test code = 415) 0.50 K/ L 0.24-0.36 H EOSINOPHILS ABSOLUTE COUNT (BEAKER) (test code = 416) 0.18 K/ L 0.04-0.36 BASOPHILS ABSOLUTE COUNT (BE TACOS) (test code = 417) 0.04 K/ L 0.01-0.08 IMMATURE GRANULOCYTES-RELATI VE PERCENT (BEAKER) (test code = 2801) 0.40 % 0.00-1.00 COMPREHENSIVE METABOLIC [id number] 05:49:53* Test Item Value Reference Range Interpretation Comme nts TOTAL PROTEIN (BEAKER) (test code = 770) 6.4 gm/dL 6.4-8.3 ALBUMIN (BEAKER) (test code = 1145) 2.7 g/dL 3.1-4.5 L ALKALINE PHOSPHATASE (BEAKER) (test code = 346) 87 U/L 40-150 BILIRUBIN TOTAL (BEAKER) (test code = 377) 4.0 mg/dL 0.3-1.2 H SODIUM (BEAKER) (test code = 381) 136 meq/L 136-145 POTASSIUM (BEAKER) (test code = 379) 4.2 meq/L 3.4-5.1 CHLORIDE (BEAKER) (test code = 382) 102 meq/L 98-107 CO2 (BEAKER) (test code = 355) 24 meq/L 22-29 BLOOD UREA NITROGEN (BEAKER) (test code = 354) 4 mg/dL 10-20 L CREATININE (BEAKER) (test code = 358) 0.63 mg/dL 0.50-1.10 GLUCOSE RANDOM (BEAKER) (test code = 652) 117 mg/dL 70-105 H CALCIUM (BEAKER) (test code = 697) 8.1 mg/dL 8.4-10.2 L AST (SGOT) (BEAKER) (test code = 353) 41 U/L 11-34 H ALT (SGPT) (BEAKER) (test code = 347) 14 U/L <34 EGFR (BEAKER) (test code = 1092) 105 mL/min/1.73 sq m Interpretation of eG FR values Stage Description Result G1 Normal or high >=90 G2 Mildly decreased 60-89 G3a Mildly to moderately 45-59 G3b Moderately to severely 30-44 G4 Severly decreased 15-29 G5 Kidney failure <15Reported eGFR is based on the CKD-EPI 202 equation that does not use a race coefficientEstimated GFR is not as accurate as Creatinine Clearance in predicting glomerular filtration rate. Estimated GFR is not applicable for dialysis patients Specimen moderately [id number] 05:49:17* Test Item Value Reference Range Interpretation Comme nts MAGNESIUM (BEAKER) (test cod e = 627) 2.1 mg/dL 1.6-2.6 [id number] 05:49:17* Test Item Value Reference Range Interpretation Comme nts PHOSPHORUS (BEAKER) (test co de = 604) 4.1 mg/dL 2.5-4.5 [id number] 05:49:17* Test Item Value Reference Range Interpretation Comme nts TRIGLYCERIDES (BEAKER) (test code = 540) 68 mg/dL TRIGLYCERIDE REFERENCE RANGELow Risk <150Borderline Risk 150-199High Risk 200- 499Very High Risk >=500Specimen moderately ictericCBC W/PLT COUNT & AUTO [id number] 05:24:21* Test Item Value Reference Range Interpretation Comme nts WHITE BLOOD CELL COUNT (BEAK ER) (test code = 775) 5.2 K/ L 3.5-10.5 RED BLOOD CELL COUNT (BEAKER ) (test code = 761) 3.38 M/ L 3.93-5.22 L HEMOGLOBIN (BEAKER) (test co de = 410) 11.8 GM/DL 11.2-15.7 HEMATOCRIT (BEAKER) (test co de = 411) 34.4 % 34.1-44.9 MEAN CORPUSCULAR VOLUME (LUCAS KER) (test code = 753) 102 fL 79-95 H MEAN CORPUSCULAR HEMOGLOBIN (BEAKER) (test code = 751) 34.9 pg 25.6-32.2 H MEAN CORPUSCULAR HEMOGLOBIN CONC (BEAKER) (test code = 752) 34.3 GM/DL 32.2-35.5 RED CELL DISTRIBUTION WIDTH (BEAKER) (test code = 412) 13.1 % 11.7-14.4 PLATELET COUNT (BEAKER) (troy t code = 756) 153 K/CU MM 150-450 MEAN PLATELET VOLUME (BEAKER ) (test code = 754) 10.1 fL 9.4-12.3 NUCLEATED RED BLOOD CELLS (BEAKER) (test code = 413) 0 /100 WBC 0-0 NEUTROPHILS RELATIVE PERCENT (BEAKER) (test code = 429) 65 % LYMPHOCYTES RELATIVE PERCENT (BEAKER) (test code = 430) 22 % MONOCYTES RELATIVE PERCENT (BEAKER) (test code = 431) 10 % EOSINOPHILS RELATIVE PERCENT (BEAKER) (test code = 432) 3 % BASOPHILS RELATIVE PERCENT (BEAKER) (test code = 437) 1 % NEUTROPHILS ABSOLUTE COUNT (BEAKER) (test code = 670) 3.36 K/ L 1.56-6.13 LYMPHOCYTES ABSOLUTE COUNT (BEAKER) (test code = 414) 1.13 K/ L 1.18-3.74 L MONOCYTES ABSOLUTE COUNT (BE TACOS) (test code = 415) 0.49 K/ L 0.24-0.36 H EOSINOPHILS ABSOLUTE COUNT (BEAKER) (test code = 416) 0.14 K/ L 0.04-0.36 BASOPHILS ABSOLUTE COUNT (BE TACOS) (test code = 417) 0.04 K/ L 0.01-0.08 IMMATURE GRANULOCYTES-RELATI VE PERCENT (BEAKER) (test code = 2801) 0.20 % 0.00-1.00 CT ABDOMEN/PELVIS WITH IV CONTRAST Standard [id number] 23:40:15 EXAMINATION: CT ABDOMEN/PELVIS WITH IV CONTRAST TECHNIQUE: CT of the abdomen and pelvis with intravenous contrast. Dosemodulation, iterative reconstruction, and/or weight-based adjustment ofthe mA/kVwas utilized to reduce the radiation dose to as low asreasonably achievable. INDICATION: Abdominal pain, acute, nonlocalized COMPARISON: None FINDINGS:Statement: None.. Lower chest: Unremarkable.. Hepatobiliary: Nodular hepatic contour... No focal hepatic lesions..Portal and hepatic veins are patent.. Status post cholecystectomy.. Mild extrahepatic biliary ductdilatation, can be seen sequel of cho lecystectomy.. Spleen: Mild splenomegaly.. . Pancreas: No abnormal pancreatic enhancement or mass. No ductdilatation, calcification or collection. However, there isperipancreatic head edema and stranding, extending to the anterior RIGHTpararenal space. Prominent peripancreatic lymph nodes. Adrenals: The adrenal glands are unremarkable.. Genitourinary: No focal lesions.. No hydronephrosis.. No radiopaquecalculi.. The urinary bladder is unremarkable.. . Gastrointestinal: No gastric abnormalities.. Normal bowel caliber. Noperienteric inflammation.. Status post appendectomy.. Lymphatics: No enlarged or abnormal- appearing lymph nodes.. Vascular: Abdominal aorta is normal in caliber. Aortoiliacatherosclerotic calcified plaque.. Peritoneum/other: No intraperitoneal free fluid.. No intraperitonealfree gas.. Diffuse mesenteric edema. MSK/body wall: No concerning bony lesion is identified.. . Mult ileveldiscovertebral degenerative changes..[facility] IV [id number] 23:40:15 [facility] : 1970 Sex: FEXAMINATION: CT ABDOMEN/PELVIS WITH IV CONTRAST TECHNIQUE: CT of the abdomen and pelvis with intravenous contrast. Dosemodulation, iterative reconstruction, and/or weight- based adjustment ofthe mA/kV was utilized to reduce the radiation dose to as low asreasonably achievable.INDICATION: Abdominal pain, acute, nonlocalizedCOMPARISON: NoneFINDINGS:Statement: None..Lower chest: Unrema rkable..Hepatobiliary: Nodular hepatic contour... No focal hepatic lesions..Portal and hepatic veins are patent.. Status post cholecystectomy.. Mild extrahepatic biliary ductdilatation, can be seen sequel of cholecystectomy..Spleen: Mild splenomegaly.. .Pancreas: No abnormal pancreatic enhancement or mass. No ductdilatation, calcification or collection. However, there isperipancreatic head edema and stranding, extending to the anterior RIGHTpararenal space. Prominent peripancreatic lymph nodes.Adrenals: The adrenal glands are unremarkable..Genitourinary: No focal lesions.. No hydronephrosis.. No radiopaquecalculi.. The urinary bladder is unremarkable.. .Gastrointestinal: No gastric abnormalities.. Normal bowel caliber. Noperienteric inflammation.. Status post appendectomy..Lymphatics: No enlarged or abnormal-appearing lymph nodes..Vascular: Abdominal aorta is normal in caliber. Aortoiliacatherosclerotic calcified plaque..Peritoneum/other: No intraperitoneal free fluid.. No intraperitonealfree gas.. Diffuse mesenteric edema.MSK/body wall: No concerning bony lesion is identified.. . Multileveldiscovertebral degenerative changes..IMPRESSION:1. Suspected pancreatitis for lipase correlation.2. Nodular hepatic contour, likely denoting cirrhosis. Mildsplenomegaly.RECOMMENDATIONS: No additional recommendations..Electronically Signed By: Richy Gonzales 23:43 CDTWorkstationName: [id number] w/Microscopic + Reflex to [id number] 21:26:18* Test Item Value Reference Range Interpretation Comme nts Color, UA (test code = 5778-6) Yellow Clarity, UA (test code = 5767-9) Hazy Specific Hathaway, UA (test code = 5811-5) 1.021 1.001-1.035 pH, UA (test code = 5803-2) 5.5 5.0-8.0 Protein, UA (test code = 55827-0) Negative Negative Glucose, UA (test code = 365) Negative Negative Ketones, UA (test code = 2514-8) Negative Negative Bilirubin, UA (test code = 49299-0) Negative Negative Blood, UA (test code = 79555-5) Negative Negative Nitrite, UA (test code = 5802-4) Negative Negative Leukocytes, UA (test code = 5799-2) Negative Negative Urobilinogen, UA (test code = 10449-5) 0.2 0.2-1.0 RBC, UA (test code = 07095-7) 2 See_Comment [Automated [employer]] The system which generated this result transmitted reference range: /HPF. The reference range was not used to interpret this result as normal/abnormal. WBC, UA (test code = 5821-4) 2 See_Comment [Automated [employer]] The system which generated this result transmitted reference range: /HPF. The reference range was not used to interpret this result as normal/abnormal. Mucus (test code = 8247-9) Rare Squam Epithel, UA (test code = 47200-1) 8 See_Comment [[employer]] The system which generated this result transmitted reference range: /HPF. The reference range was not used to interpret this result as normal/abnormal. Hyaline Casts, UA (test code = 02688-1) 9 See_Comment [[employer]] The system which generated this result transmitted reference range: /LPF. The reference range was not used to interpret this result as normal/abnormal. Specimen Source (test code = 2795) BLANCA (test code = BLANCA) Insurance Office Manager ID - [auto]Insurance Office Manager ID - tech [facility] [id number] 21:26:18 * Test Item Value Reference Range Interpretation Comme nts COLOR (BEAKER) (test code = 470) Yellow CLARITY (BEAKER) (test code = 469) Hazy SPECIFIC GRAVITY UA (BEAKER) (test code = 468) 1.021 1.001-1.035 PH UA (BEAKER) (test code = 467) 5.5 5.0-8.0 PROTEIN UA (BEAKER) (test co de = 464) Negative Negative GLUCOSE UA (BEAKER) (test co de = 365) Negative Negative KETONES UA (BEAKER) (test co de = 371) Negative Negative BILIRUBIN UA (BEAKER) (test code = 462) Negative Negative BLOOD UA (BEAKER) (test code = 461) Negative Negative NITRITE UA (BEAKER) (test co de = 465) Negative Negative LEUKOCYTE ESTERASE UA (BEAKE R) (test code = 466) Negative Negative UROBILINOGEN UA (BEAKER) (te st code = 463) 0.2 0.2-1.0 RBC UA (BEAKER) (test code = 519) 2 /HPF WBC UA (BEAKER) (test code = 520) 2 /HPF MUCUS (BEAKER) (test code = 1574) Rare SQUAMOUS EPITHELIAL (BEAKER) (test code = 516) 8 /HPF HYALINE CASTS (BEAKER) (test code = 514) 9 /LPF SOURCE(BEAKER) (test code = 2795) Insurance Office Manager ID - [auto]Insurance Office Manager ID - techLACTIC ACID, [id number] 21:14:43* Test Item Value Reference Range Interpretation Comme nts LACTATE BLOOD VENOUS (2) (BEAKER) (test code = 2872) 1.56 mmol/L 0.50-2.20 Specimen moderat trish hemolyzed Specimen slightly ictericPROTHROMBIN TIME/[id number] 21:11:29* Test Item Value Reference Range Interpretation Comme nts PROTIME (BEAKER) (test code = 759) 16.9 seconds 9.9-12.7 H INR (BEAKER) (test code = 370) 1.51 See Comment RECOMMENDED COUMADIN/WARFARIN INR THERAPY RANGESSTANDARD DOSE: 2.0 - 3.0 Includes: PROPHYLAXIS for venous thrombosis, systemic embolization; TREATMENT for venous thrombosis and/or pulmonary embolus.HIGH RISK: Target INR is 2.5-3.5 for patients with mechanical heart valves.Insurance Office Manager ID -PT/[id number] 20:42:03* Test Item Value Reference Range Interpretation Comme nts PROTIME (BEAKER) (test code = 759) 15.8 seconds 9.9-12.7 H INR (BEAKER) (test code = 370) 1.41 See Comment PARTIAL THROMBOPLASTIN TIME (BEAKER) (test code = 760) 41.8 seconds 26.8-37.1 H RECOMMENDED COUMADIN/WARFARIN INR THERAPY RANGESSTANDARD DOSE: 2.0 - 3.0 Includes: PROPHYLAXIS for venous thrombosis, systemic embolization; TREATMENT for venous thrombosis and/or pulmonary embolus.HIGH RISK: Target INR is 2.5-3.5 for patients with mechanical heart valves.Insurance Office Manager ID -COMPREHENSIVE METABOLIC [id number] 20:40:26* Test Item Value Reference Range Interpretation Comme nts TOTAL PROTEIN (BEAKER) (test code = 770) 7.3 gm/dL 6.4-8.3 ALBUMIN (BEAKER) (test code = 1145) 3.1 g/dL 3.1-4.5 ALKALINE PHOSPHATASE (BEAKER) (test code = 346) 105 U/L 40-150 BILIRUBIN TOTAL (BEAKER) (test code = 377) 4.2 mg/dL 0.3-1.2 H SODIUM (BEAKER) (test code = 381) 137 meq/L 136-145 POTASSIUM (BEAKER) (test code = 379) 3.9 meq/L 3.4-5.1 CHLORIDE (BEAKER) (test code = 382) 103 meq/L 98-107 CO2 (BEAKER) (test code = 355) 21 meq/L 22-29 L BLOOD UREA NITROGEN (BEAKER) (test code = 354) 6 mg/dL 10-20 L CREATININE (BEAKER) (test code = 358) 0.73 mg/dL 0.50-1.10 GLUCOSE RANDOM (BEAKER) (test code = 652) 120 mg/dL 70-105 H CALCIUM (MANNY) (test code = 697) 8.7 mg/dL 8.4-10.2 AST (SGOT) (MANNY) (test code = 353) 44 U/L 11-34 H ALT (SGPT) (MANNY) (test code = 347) 15 U/L <34 EGFR (MANNY) (test code = 1092) 97 mL/min/1.73 sq m Interpretation of eG FR values Stage Description Result G1 Normal or high >=90 G2 Mildly decreased 60-89 G3a Mildly to moderately 45-59 G3b Moderately to severely 30-44 G4 Severly decreased 15-29 G5 Kidney failure <15Reported eGFR is based on the CKD-EPI 2020 equation that does not use a race coefficientEstimated GFR is not as accurate as Creatinine Clearance in predicting glomerular filtration rate. Estimated GFR is not applicable for dialysis patients Specimen moderately [id number] 20:40:01* Test Item Value Reference Range Interpretation Comme nts LIPASE (MANNY) (test code = 749) 52 U/L <=60 Specimen moderately ictericUS abdomen [id number] 20:38:32TECHNIQUE: Grayscale ultrasound of the right abdomen. INDICATION: RUQ ttp. COMPARISON: None. FINDINGS: MIDLINE VASCULATURE: The visualized inferior vena cava is patent. Portalvein is patent and measures 1.2 cm. The maximum visualized aorticdiameter is 2.8 cm, ectatic. LIVER: Nodular contour of the liver measuring up to 14 cm. No focallesions. BILIARY:Gallbladder: Postcholecystectomy status.Commonbile duct measures 0.4 cm. No intrahepatic biliary ductaldilatation. PANCREAS: Incompletely visualized due to overlying bowel gas. PERITONEUM: No free fluid. RIGHT KIDNEY: Normal in size. No hydronephrosis. No sonographicallyevident solid mass lesion. Nonobstructing stone.[facility] [id number] 20:38:32 [facility] : 1970 Sex: FTECHNIQUE: Grayscale ultrasound of the right abdomen.INDICATION: RUQ ttp.COMPARISON: None.FINDINGS:MIDLINE VASCULATURE: The visualized inferior vena cava is patent. Portalvein is patent and measures 1.2 cm. The maximum visualized aorticdiameter is 2.8 cm, ectatic.LIVER: Nodular contour of the liver measuring up to 14 cm. No focallesions. BILIARY:Gallbladder: Postcholecystectomy status.Common bile duct measures 0.4 cm. No intrahepatic biliary ductaldilatation.PANCREAS: Incompletely visualized due to overlying bowel gas.PERITONEUM: No free fluid.RIGHT KIDNEY: Normal in size. No hydronephrosis. No sonographicallyevident solid mass lesion. Nonobstructing stone.IMPRESSION:Cirrhotic morphology of the liver.Postcholecystectomy status.Electronically Signed By: Ivonne Wang 025 20:40 CDTWorkstation Name: [id number] W/PLT COUNT & AUTO DIFFERENTIAL 2025-02-14 20:23:59* Test Item Value Reference Range Interpretation Comme nts WHITE BLOOD CELL COUNT (BEAK ER) (test code = 775) 6.7 K/ L 3.5-10.5 RED BLOOD CELL COUNT (BEAKER ) (test code = 761) 3.68 M/ L 3.93-5.22 L HEMOGLOBIN (BEAKER) (test co de = 410) 12.5 GM/DL 11.2-15.7 HEMATOCRIT (BEAKER) (test co de = 411) 36.8 % 34.1-44.9 MEAN CORPUSCULAR VOLUME (LUCAS KER) (test code = 753) 100 fL 79-95 H MEAN CORPUSCULAR HEMOGLOBIN (BEAKER) (test code = 751) 34.0 pg 25.6-32.2 H MEAN CORPUSCULAR HEMOGLOBIN CONC (BEAKER) (test code = 752) 34.0 GM/DL 32.2-35.5 RED CELL DISTRIBUTION WIDTH (BEAKER) (test code = 412) 13.0 % 11.7-14.4 PLATELET COUNT (BEAKER) (troy t code = 756) 175 K/CU MM 150-450 MEAN PLATELET VOLUME (BEAKER ) (test code = 754) 10.1 fL 9.4-12.3 NUCLEATED RED BLOOD CELLS (BEAKER) (test code = 413) 0 /100 WBC 0-0 NEUTROPHILS RELATIVE PERCENT (BEAKER) (test code = 429) 62 % LYMPHOCYTES RELATIVE PERCENT (BEAKER) (test code = 430) 25 % MONOCYTES RELATIVE PERCENT (BEAKER) (test code = 431) 9 % EOSINOPHILS RELATIVE PERCENT (BEAKER) (test code = 432) 2 % BASOPHILS RELATIVE PERCENT (BEAKER) (test code = 437) 1 % NEUTROPHILS ABSOLUTE COUNT (BEAKER) (test code = 670) 4.17 K/ L 1.56-6.13 LYMPHOCYTES ABSOLUTE COUNT (BEAKER) (test code = 414) 1.67 K/ L 1.18-3.74 MONOCYTES ABSOLUTE COUNT (BE TACOS) (test code = 415) 0.63 K/ L 0.24-0.36 H EOSINOPHILS ABSOLUTE COUNT (BEAKER) (test code = 416) 0.15 K/ L 0.04-0.36 BASOPHILS ABSOLUTE COUNT (BE TACOS) (test code = 417) 0.05 K/ L 0.01-0.08 IMMATURE GRANULOCYTES-RELATI VE PERCENT (BEAKER) (test code = 2801) 0.30 % 0.00-1.00 Blood gas, [id number] 14:44:34* Test Item Value Reference Range Interpretation Comme nts pH, Arterial (test code = 2744-1) 7.66 7.35-7.45 HH pCO2, Arterial (test code = 2019-8) 16 35-45 LL pO2, Arterial (test code = 2703-7) 182 80-90 H O2 Sat, Arterial (test code = 2708-6) 99.5 % 96.0-97.0 H HCO3, Arterial (test code = 1960-4) 17 mmol/L 21-29 L Base Excess, Arterial (test code = 1925-7) -0.2 mmol/L -2.0-3.0 Patient Temperature (test co de = 8310-5) 37 Lab Interpretation (test cod e = 84199-5) Abnormal [facility] [id number] 14:44:34* Test Item Value Reference Range Interpretation Comme nts PH ARTERIAL (BEAKER) (test c ode = 383) 7.66 7.35-7.45 HH PCO2 ARTERIAL (BEAKER) (test code = 384) 16 mm Hg 35-45 LL PO2 ARTERIAL (BEAKER) (test code = 385) 182 mm Hg 80-90 H O2 SATURATION ARTERIAL (BEAK ER) (test code = 386) 99.5 % 96.0-97.0 H HCO3 ARTERIAL (BEAKER) (test code = 388) 17 mmol/L 21-29 L BASE EXCESS ARTERIAL (BEAKER ) (test code = 387) -0.2 mmol/L -2.0-3.0 PATIENT TEMPERATURE (BEAKER) (test code = 1818) 37.0 URINALYSIS W/ REFLEX URINE [id number] 14:31:27* Test Item Value Reference Range Interpretation Comme nts COLOR (BEAKER) (test code = 470) Yellow CLARITY (BEAKER) (test code = 469) Clear SPECIFIC GRAVITY UA (BEAKER) (test code = 468) 1.011 1.001-1.035 PH UA (BEAKER) (test code = 467) 5.5 5.0-8.0 PROTEIN UA (BEAKER) (test co de = 464) Negative Negative GLUCOSE UA (BEAKER) (test co de = 365) 30 mg/dL Negative A KETONES UA (BEAKER) (test co de = 371) Negative Negative BILIRUBIN UA (BEAKER) (test code = 462) Negative Negative BLOOD UA (BEAKER) (test code = 461) Negative Negative NITRITE UA (BEAKER) (test co de = 465) Negative Negative LEUKOCYTE ESTERASE UA (BEAKE R) (test code = 466) Negative Negative UROBILINOGEN UA (BEAKER) (te st code = 463) 0.2 0.2-1.0 RBC UA (BEAKER) (test code = 519) < /HPF WBC UA (BEAKER) (test code = 520) 1 /HPF MUCUS (BEAKER) (test code = 1574) Rare SQUAMOUS EPITHELIAL (BEAKER) (test code = 516) 6 /HPF HYALINE CASTS (BEAKER) (test code = 514) 16 /LPF SOURCE(BEAKER) (test code = 2795) Insurance Office Manager ID - [auto]Insurance Office Manager ID - techMM digital mammo screen with joyce [id number] 13:31:17* Test Item Value Reference Range Interpretation Comme [facility] Radiology Study observation (narrative) (test code = 42050-2) IMP (test code = IMP) No mammographic evidence of malignancy.A 1 year screening mammogram is recommended. The patient will be notified of the results and recommendations. Overall: 2 - Benign Jude Messina MD; Grant Moss MD51:31 PM CDT BLANCA (test code = BLANCA) HISTORY:Chichi Casey is a 54 y.o. female and is seen for a MM digital mammo screen with joyce bilateral. COMPARISON STUDIES:None. FINDINGS:Tomosynthesis 3D imaging of both breasts was performed.The current study was also evaluated with a Computer Aided Detection (CAD) sytem.The breasts are heterogeneously dense, which may obscure small masses. No significant masses, calcifications, or other findings are seen in either breast. Lab Interpretation (test code = 64504-0) Normal [facility] DIGITAL MAMMO SCREEN WITH JOYCE [id number] 13:31:17[facility] : 1970 Sex: F This is a summary report. The complete report is available in the patient's medicalrecord. If you cannot access the medical record, please contact the sending organization for a detailed fax or copy.HISTORY:Chichi Casey is a 54 y.o. female and is seen for a MM digital mammoscreen with joyce bilateral. COMPARISON STUDIES:None.FINDINGS:Tomosynthesis 3D imaging of both breasts was performed.The current study was also evaluated with a Computer Aided Detection (CAD) sytem.The breasts are heterogeneously dense, which may obscure small masses. No significant masses, calcifications, or other findings are seen in either breast. IMPRESSION:No mammographic evidence of malignancy.A 1 year screening mammogram is recommended.The patient will be notified of the results and recommendations.Overall: 2 - Heriberto Messina MD; Grant Moss MD51:31 PM CDTECG 12 [id number] 09:33:06Ventricular Rate 91 BPMAtrial Rate 91 BPMP-R Interval 150 msQRS Duration 74 msQ-T Interval 396 msQTC Calculation(Bazett) 487 msP [place] 53 degreesR [place] -28 degreesT [place] 43 degrees Normal sinus rhythmProlonged QTAbnormal ECGWhen compared with ECG of 01-FEB-2025 12:30,No significant change was foundConfirmed by Frank Becerril ([id number]) on 02/08/2025 9:33:05 [facility] 2025-02-08 09:07:27Ordered by an unspecified provider.[facility] - [id number] 09:07:27Ordered by an unspecified provider.[facility] doppler [id number] 17:28:23 [facility] - Carotid Duplex Study Demographics Patient Name CHUCK CADET Date of Study 02/01/2025 ROXANN Age 54 Visit Number [id number] Gender Female Accession Number [id number] Date of Birth1970 Referring Rise Ellie Room Number Physician ELLIEFLORENTIN Ventura Physician Primary Care Sports Medicine Suze Fuentes Interpreting Physician NABEEL Barriga FellowProcedureType of Study: Cerebral: Carotid, CAROTID DOPPLER, BILATERAL.Indications for Study:Liver transplant evaluation.Patient Status:Routine.StudyLocation:Vascular Lab.Technical Quality:Adequate visualization.ImpressionsRight Impression1. The internal, common and external carotid arteries are within normallimits.2. The vertebral artery flow isantegrade and normal.3. The subclavian artery is within normal limits where visualized.Left Impression1. The internal, common and external carotid arteries are within normallimits.2. The vertebral artery flow is antegrade and normal.3. The subclavian artery is within normal limits where visualized.Conclusions Summary Carotid duplex scanning and color flow imaging were performed bilaterally. The arteries were well visualized and no areas of stenosis were found bilaterally. Doppler flow velocities were within normal range bilaterally. The vertebral artery flow was antegrade and normal bilateral ly. Signature Velocities are measured in cm/s ; Diameters are measured in cmCarotid Right Measurements+ +----+----+-----+ + +---- -------+!Location !PSV !EDV !Angle!%Stenosis 2D!%Stenosis Doppler!Tortuosity !+ +----+----+---- -+ + + +!Prox CCA !84.9!16.6!60 ! ! ! !+ +----+-- --+-----+ + + +!Dist CCA !115 !30.3!60 ! ! ! !+ + ----+----+-----+ + + +!Prox ICA !79 !20.2!60 !0% ! ! !+-------- -------+----+----+-----+ + + +!Dist ICA !65.7!18.9!14 ! ! ! !+ +----+----+-----+ + + +!Prox ECA !74.8!23.2!60 ! ! ! !+ +----+----+-----+ + + +!Ve rtebral !49.3!15 !60 ! ! ! !+ +----+----+-----+ + + +!Pr ox Subclavian!136 !0 !62 ! ! ! !+ +----+----+-----+ + + + - There is antegrade vertebral flow noted on the right side. - Additional Measurements:ICAPSV/CCAPSV 0.69.ICAEDV/CCAEDV 1.22.Carotid Left Measurements+ +----+----+-----+ +--- + +!Location !PSV !EDV !Angle!%Stenosis 2D!%Stenosis Doppler!Tortuosity !+-- +----+----+-----+ + + +!Prox CCA !172 !44.4!62 ! ! ! !+ +----+----+-----+ + + +!Di st CCA !133 !34.5!62 ! ! ! !+ +----+----+-----+ + + +!Pr ox ICA !76.9!19.7!62 !0% ! ! !+ +----+----+-----+ + + +!Di st ICA !93.6!31 !62 ! ! ! !+ +----+----+-----+ + + +!Prox ECA !68.3!13.9!62 ! ! ! !+ +----+----+-----+ + +-- ---------+!Vertebral !57.5!18.4!62 ! ! ! !+ +----+----+-----+ + -----+ +!Prox Subclavian!148 !0 !62 ! ! ! !+ +----+----+-----+ + + + - There is antegrade vertebral flow noted on the left side. - Additional Measurements:ICAPSV/CCAPSV 0.7.ICAEDV/CCAEDV 0.7.[facility] myocardial perfusion SPECT,pharm(LEXISCAN)2025-02-01 13:41:19PROCEDURE: MYOCARDIAL PERFUSION SPECT IMAGING (Rest/Stress)CPT CODE: 13719 INDICATION: Preliver transplant CARDIOVASCULAR PROFILE: CAD History: No known history of CAD Symptoms: None Risk Factors: Prior CVA BMI: 32 STRESS PROTOCOL: Pharmacologic stress was achieved with a 10-second intravenousinfusion of regadenoson 0.4 mg. The radiopharmaceutical was [id number] seconds after the start of the regadenoson infusion. IMAGING PROTOCOL: 9.6 mCi of Tc-99m tetrofosmin was injected intravenously atrest, andgated SPECT images were obtained. Then, 31.5 mCi of Tc-99m tetrofosminwas injected intravenously at peak stress, and gated SPECT images wereobtained. Image quality is good. REST FINDINGS: HR: 88/min BP: 129/75 mmHg Prelim. EKG: Normal sinus rhythm. Perfusion: Normal. Wall Motion: Normal (LVEF >70%). LV Volume: Normal. RV Volume: Normal. STRESS FINDINGS: HR: 87/min (52% of MPHR) BP: 119/75 mmHg Prelim. EKG: No ischemic changes. Symptoms: None (treatment not required). Perfusion: Normal. Wall Motion: Normal (LVEF >70%). LV Volume: Not significantly changed from rest.[facility] MYOCARDIAL PERFUSION SPECT, [id number] 13:41:19 [facility] : 1970 Sex: FPROCEDURE: MYOCARDIAL PERFUSION SPECT IMAGING (Rest/Stress)CPT CODE: [id number]: Preliver transplantCARDIOVASCULAR PROFILE: CAD History: No known history of CAD Symptoms: None Risk Factors: Prior CVA BMI: 32STRESS PROTOCOL: Pharmacologic stress was achieved with a 10-second intravenousinfusion of regadenoson 0.4 mg. The radiopharmaceutical was [id number] seconds after thestart of the regadenoson infusion.IMAGING PROTOCOL: 9.6 mCi of Tc-99m tetrofosmin was injected intravenously at rest, andgated SPECT images were obtained. Then, 31.5 mCi of Tc-99m tetrofosminwas injected intravenously at peak stress, and gated SPECT images wereobtained. Image quality is good.REST FINDINGS: HR: 88/min BP: 129/75 mmHg Prelim. EKG: Normal sinus rhythm. Perfusion: Normal. Wall Motion: Normal (LVEF >70%). LV Volume: Normal. RV Volume: Normal.STRESS FINDINGS: HR: 87/min (52% of MPHR) BP: 119/75 mmHg Prelim. EKG: No ischemic changes. Symptoms: None (treatment not required). Perfusion: Normal. Wall Motion: Normal (LVEF >70%). LV Volume: Not significantly changed from rest.IMPRESSION:1. Normal Regadenoson SPECT myocardial perfusion, without evidence ofischemia or prior infarction.2. Normal resting LVEF, which does not deteriorate with stress.3. Normal LV size and wall motion.4. There is no prior study for comparison.Electronically Signed By: Rick Snider02/01/2025 13:43 CDTWorkstation Name: [id number] W CONTRAST & [id number] 10:23:13Transthoracic Echocardiography Report (TTE) Demographics Patient Name CHUCK ACDET Date of Study02/01/2025 ROXANN Gender Female Visit Number [id number] Race Room Number OP Number Date of 1970 Referring Ellie Ventura Physician Age 54 year(s) Physician Primary Care Sports Medicine Jess Castrejon RDCS White Sugar Syrup Operator Jess Castrejon, Interpreting CELIO Pollock S Physician MDProcedure Type of Study TTE procedure:2DECHO W/CONTRAST & DOPPLER (Routine)Indications:Pre-surgical evaluation of organ transplant.Clinical HistoryETOH USE, CVA, SEIZURE DISORDERContrast Medium: Definity. Amount - 2 mlHeight: 62 inches Weight: 79.38 kg (175 lbs) BSA: 1.81 m^2 BMI:32.01 kg/m^2HR: 86 bpm BP: 128/75 mmHg Summary LVEF by Shaffer's method of disk assessment is normal (65-70%) . Normal diastolic function. High (cardiac index >4 L/min/m2) cardiac output state at rest is noted. LV global longitudinal strain (GLS) is: - 20.2 %. RV chamber size is normal . Global RV systolic function is normal. TAPSE 22mm, S' 0.16 m/s. IV saline contrast injection was negative for a PFO (patent foramen ovale) at rest and post Valsalva . IV saline contrast with delayed imaging demonstrates intra pulmonic shunting. No significant valve disease detected. Estimated peak systolicPA pressure is 20-25 mmHg (normal range) . Previous Study No prior studies available for comparison. Signature Findings Rhythm/BP Regular sinus rhythm during the exam. LeftVentricle LV endocardium is well visualized with IV ultrasound enhancing agent. The left ventricle chamber size (by vol index) is normal (female - LVED vol - 29-61ml/m2). Normal LV wall thickness. Global LV systolic function normal . LVEF by Shaffer's method of disk assessment is normal (65-70%) .All of the LV segments contract normally . Normal diastolic function. High (cardiac index >4 L/min/m2) cardiac output state at rest is noted. LV global longitudinal strain (GLS) is: - 20.2 %. LeftAtrium LA size is normal (16-34 ml/m2) . Right Ventricle RV chamber size is normal . Global RV systolic function is normal. TAPSE 22mm, S' 0.16 m/s. Right Atrium RA size is normal. Atrial Septum IV saline contrast injection was negative for a PFO (patent foramen ovale) at rest and post Valsalva . IV saline contrast with delayed imaging demonstrates intra pulmonic shunting. The degree of intrapulmo nary shunting appears to be mild . Aortic Valve Normal tri-leaflet aortic valve. No evidence of aortic stenosis. Minimally increased velocities due to increased flow. No evidence of aortic regurgitation. Mitral Valve Normal MV structure. No evidence of mitral regurgitation. There is no evidence of mitral stenosis. Tricuspid Valve Mild tricuspid regurgitation. Estimated peak systolic PA pressureis 20-25 mmHg (normal range) . Pulmonic Valve Normal PV structure. A trace of pulmonary regurgitation. Aorta Aortic root size (Sinus of Valsalva diameter) is normal . Proximal ascending aorta size isnormal . Pericardium An echo lucent space is noted consistent with prominent pericardial fat pad. No pericardial effusion is visualized. IVC/SVC/PA/PV/Pleural The IVC is <2.1cm and >50% collapsible suggestive of RAP of 3 mm Hg.Chambers/Structures Left Atrium LA Volume: 49.31 ml LA Area: 17.5 cm^2 LA Vol. Index: 27 ml/m^2 Left Ventricle LVIDd: 4 cm LVEDV:70.11 ml LVIDs: 2.56 cm LVESV:16.82 ml LV Septum Diastolic: 0.79 cm LVEF 2D Cube: 73.8 % LV PW Diastolic: 0.8 cm LVEDV Shaffer's:105.46 ml LV Length: 9.14 cm LVESV Shaffer's:32.39 ml LV FS: 36 % LVEF Shaffer's: 69.3 % LVEDVI: 58 ml/m^2 LVOT Diameter: 2.06 cm LVESVI: 18 ml/m^2 LVEF: 76 % Right Atrium RA Area: 18.02 cm^2 Right Ventricle RVOT VTI: 18.47 cm RV Systolic Pressure: 21.64 mmHgAorta Ao Root S of Olivia.: 3.5 cm Ascending Aorta: 3.5 cmDoppler/Quantitative Measurements Mitral Valve MV Peak E-Wave: 0.73 m/s MV Peak A-Wave: 0.86 m/s Peak Velocity: 0.97 m/s E/A Ratio: 0.84 Mean Velocity: 0.65 m/s Peak Gradient: 2.11 mmHg MeanGradient: 1.92 mmHg Deceleration Time: 163.3 msec Area (continuity): 4.19 cm^2 MV VTI: 23.97 cm MV Cliff. Peak: Tissue Doppler E' Septal Velocity: 0.07 m/s E/E': 5.76 E' Lateral Velocity: 0.13 m/s Aortic Valve Peak Velocity: 1.73 m/s Mean Velocity: 1.14 m/s Peak Gradient: 11.94 mmHg Mean Gradient: 6.04 mmHg AV Area (continuity): 3.19 cm^2 AV VTI: 31.52 cm AV DVI: 0.96 LVOT Peak Velocity: 1.65 m/s Peak Gradient: 10.95 mmHg Mean Velocity: 1.03 m/s Mean Gradient: 5.06 mmHg LVOT Diameter: 2.06 cm LVOT VTI: 30.16 cm LVOT Area: 3.33 cm^2 LVOT SV:100.47 ml LVOT CO: 8.64 l/min LVOT CI: 4.77 l/min/m^2 Tricuspid Valve Estimated RAP: 3 mmHg TR Velocity: 2.16 m/s TR Gradient: 18.64 mmHg Pulmonic Valve Peak Velocity: 1.09 m/s Peak Gradient: 4.74 mmHg Mean Velocity: 0.78 m/s Mean Gradient: 2.44 mmHg Estimated PASP: 21.64 mmHgCHI Fabiola HospitalBLOOD GAS, [id number] 09:06:59* Test Item Value Reference Range Interpretation Comme nts PH ARTERIAL (BEAKER) (test c ode = 383) 7.44 7.35-7.45 PCO2 ARTERIAL (BEAKER) (test code = 384) 37 mm Hg 35-45 PO2 ARTERIAL (BEAKER) (test code = 385) 77 mm Hg 80-90 L O2 SATURATION ARTERIAL (BEAK ER) (test code = 386) 95.8 % 96.0-97.0 L HCO3 ARTERIAL (BEAKER) (test code = 388) 25 mmol/L 21-29 BASE EXCESS ARTERIAL (BEAKER ) (test code = 387) 0.9 mmol/L -2.0-3.0 PATIENT TEMPERATURE (BEAKER) (test code = 1818) 37.0 FIO2 (BEAKER) (test code = 1819) 21.0 CT ABDOMEN/PELVIS WITH IV [id number] 00:26:34 [facility] : 1970 Sex: FTECHNIQUE: CT of the abdomen and pelvis WITH intravenous contrast andWITHOUT oral contrast. Dose modulation, iterative reconstruction, and/orweight-based adjustment of the mA/kV was utilized to reduce theradiation dose to as low as reasonably achievable.INDICATION: LLQ abdominal painLLQ ABD PAIN, nausea loose stools.COMPARISON: 12/25/2024.FINDINGS:LOWER THORAX: Unremarkable.HEPATOBILIARY: Cirrhotic liver morphology. No focal hepatic lesions.Gallbladder is surgically absent. No biliary ductal dilatation.SPLEEN: Spleen is 14.1 cm in length.PANCREAS: No focal masses or ductal dilatation.ADRENALS: No adrenal nodules.KIDNEYS/URETERS: No hydronephrosis, stones, or masses.PELVIC ORGA NS/BLADDER: Unremarkable bladder. Uterus is absent.PERITONEUM/RETROPERITONEUM: No free air or fluid.LYMPH NODES: No lymphadenopathy.VESSELS: Portal vein is patent with diameter of 1.0 cm. There isrecanalization of the umbilical vein.GI TRACT: Several loops of proximal small bowel with air-fluid levels.No obstruction or wall thickening. There is a periampullary duodenaldiverticulum. Colon is normal caliber. Appendix is absent.BONES AND SOFT TISSUES: No acute osseous abnormality. Soft tissues areunremarkable.IMPRESSION:There are several loops of proximal small bowel with air-fluid levelsquestionable for a nonspecific enteritis. No bowel obstruction orsignificant inflammatory changes.Cirrhosiswith sequela of portal hypertension including splenomegaly. Nosignificant ascites.Electronically Signed By: Jonna Marroquin01/30/2025 00:29 CDTWorkstation Name: [id number] METABOLIC [id number] 20:39:01* Test Item Value Reference Range Interpretation Comme nts TOTAL PROTEIN (BEAKER) (test code = 770) 8.2 gm/dL 6.4-8.3 Specimen slightl y hemolyzed ALBUMIN (BEAKER) (test code = 1145) 3.3 g/dL 3.1-4.5 Specimen slig htly hemolyzed ALKALINE PHOSPHATASE (BEAKER) (test code = 346) 115 U/L 40-150 BILIRUBIN TOTAL (BEAKER) (test code = 377) 6.6 mg/dL 0.3-1.2 H Specimen slightl y hemolyzed SODIUM (BEAKER) (test code = 381) 130 meq/L 136-145 L POTASSIUM (BEAKER) (test code = 379) 4.1 meq/L 3.4-5.1 Specimen sligh tly hemolyzed CHLORIDE (BEAKER) (test code = 382) 100 meq/L 98-107 CO2 (BEAKER) (test code = 355) 20 meq/L 22-29 L BLOOD UREA NITROGEN (BEAKER) (test code = 354) 4 mg/dL 10-20 L CREATININE (BEAKER) (test code = 358) 0.64 mg/dL 0.50-1.10 Specimen slightl y hemolyzed GLUCOSE RANDOM (BEAKER) (test code = 652) 104 mg/dL 70-105 CALCIUM (BEAKER) (test code = 697) 9.1 mg/dL 8.4-10.2 AST (SGOT) (BEAKER) (test code = 353) 67 U/L 11-34 H Specimen slightl y hemolyzed ALT (SGPT) (BEAKER) (test code = 347) 22 U/L <34 Specimen slightl y hemolyzed EGFR (BEAKER) (test code = 1092) 104 mL/min/1.73 sq m Interpretation of eG FR values Stage Description Result G1 Normal or high >=90 G2 Mildly decreased 60-89 G3a Mildly to moderately 45-59 G3b Moderately to severely 30-44 G4 Severly decreased 15-29 G5 Kidney failure <15Reported eGFR is based on the CKD-EPI 2020 equation that does not use a race coefficientEstimated GFR is not as accurate as Creatinine Clearance in predicting glomerular filtration rate. Estimated GFR is not applicable for dialysis patients Specimen moderately [id number] 20:36:33* Test Item Value Reference Range Interpretation Comme nts LIPASE (BEAKER) (test code = 749) 28 U/L <=60 Specimen moderately ictericURINALYSIS W/ REFLEX URINE [id number] 20:31:15 * Test Item Value Reference Range Interpretation Comme nts COLOR (BEAKER) (test code = 470) Yellow CLARITY (BEAKER) (test code = 469) Hazy SPECIFIC GRAVITY UA (BEAKER) (test code = 468) 1.013 1.001-1.035 PH UA (BEAKER) (test code = 467) 6.0 5.0-8.0 PROTEIN UA (BEAKER) (test co de = 464) Negative Negative GLUCOSE UA (BEAKER) (test co de = 365) Negative Negative KETONES UA (BEAKER) (test co de = 371) Negative Negative BILIRUBIN UA (BEAKER) (test code = 462) Negative Negative BLOOD UA (BEAKER) (test code = 461) Negative Negative NITRITE UA (BEAKER) (test co de = 465) Negative Negative LEUKOCYTE ESTERASE UA (BEAKE R) (test code = 466) Negative Negative UROBILINOGEN UA (BEAKER) (te st code = 463) 4 0.2-1.0 H RBC UA (BEAKER) (test code = 519) 7 /HPF WBC UA (BEAKER) (test code = 520) 1 /HPF MUCUS (BEAKER) (test code = 1574) Rare SQUAMOUS EPITHELIAL (BEAKER) (test code = 516) 2 /HPF CALCIUM OXALATE CRYSTALS (BE TACOS) (test code = 518) Moderate SOURCE(BEAKER) (test code = 2795) Insurance Office Manager ID - [auto]Insurance Office Manager ID - techCBC W/PLT COUNT & AUTO DIFFERENTIAL 2025-01-29 20:14:31* Test Item Value Reference Range Interpretation Comme nts WHITE BLOOD CELL COUNT (BEAK ER) (test code = 775) 7.9 K/ L 3.5-10.5 RED BLOOD CELL COUNT (BEAKER ) (test code = 761) 3.99 M/ L 3.93-5.22 HEMOGLOBIN (BEAKER) (test co de = 410) 14.1 GM/DL 11.2-15.7 HEMATOCRIT (BEAKER) (test co de = 411) 41.2 % 34.1-44.9 MEAN CORPUSCULAR VOLUME (LUCAS KER) (test code = 753) 103 fL 79-95 H MEAN CORPUSCULAR HEMOGLOBIN (BEAKER) (test code = 751) 35.3 pg 25.6-32.2 H MEAN CORPUSCULAR HEMOGLOBIN CONC (BEAKER) (test code = 752) 34.2 GM/DL 32.2-35.5 RED CELL DISTRIBUTION WIDTH (BEAKER) (test code = 412) 12.0 % 11.7-14.4 PLATELET COUNT (BEAKER) (troy t code = 756) 174 K/CU MM 150-450 MEAN PLATELET VOLUME (BEAKER ) (test code = 754) 11.2 fL 9.4-12.3 NUCLEATED RED BLOOD CELLS (BEAKER) (test code = 413) 0 /100 WBC 0-0 NEUTROPHILS RELATIVE PERCENT (BEAKER) (test code = 429) 67 % LYMPHOCYTES RELATIVE PERCENT (BEAKER) (test code = 430) 20 % MONOCYTES RELATIVE PERCENT (BEAKER) (test code = 431) 9 % EOSINOPHILS RELATIVE PERCENT (BEAKER) (test code = 432) 3 % BASOPHILS RELATIVE PERCENT (BEAKER) (test code = 437) 1 % NEUTROPHILS ABSOLUTE COUNT (BEAKER) (test code = 670) 5.31 K/ L 1.56-6.13 LYMPHOCYTES ABSOLUTE COUNT (BEAKER) (test code = 414) 1.58 K/ L 1.18-3.74 MONOCYTES ABSOLUTE COUNT (BE TACOS) (test code = 415) 0.71 K/ L 0.24-0.36 H EOSINOPHILS ABSOLUTE COUNT (BEAKER) (test code = 416) 0.20 K/ L 0.04-0.36 BASOPHILS ABSOLUTE COUNT (BE TACOS) (test code = 417) 0.07 K/ L 0.01-0.08 IMMATURE GRANULOCYTES-RELATI VE PERCENT (BEAKER) (test code = 2801) 0.30 % 0.00-1.00 TOXOPLASMA GONDII ANTIBODY, [id number] 16:05:03* Test Item Value Reference Range Interpretation Comme nts TOXOPLASMA GONDII IGG QUANTI TATIVE (MANNY) (test code = 3428) < IU/mL <10.0 Toxoplasma Gondii IgG Result Interpretation: </= 9.9 IU/mL Normal 10-11 IU/mL Equivocal >/= 12 IU/mL PositiveT-SPOT(R).[id number] 14:54:19* Test Item Value Reference Range Interpretation Comme nts T-SPOT.TB (test code = 72578-6) Negative SeeBelow Normal Value: Ne gativeA negative test result does not exclude the possibility of exposure to or infection with Mycobacterium tuberculosis (M.tuberculosis). Patients with recent exposure to TB infected individuals exhibiting a negative T-SPOT.TB result should be considered for retesting within 6 weeks or if other relevant clinical symptoms indicate. Results from T-SPOT.TB testing must be used in conjunction with each individual's epidemiological history, current medical status, and results of other diagnostic evaluations. The T-SPOT.TB test is qualitative and results are reported as positive, borderline or negative, given that the test controls perform as expected. In line with the Centers for Disease Control and Prevention's 2010 recommendation to report quantitative measurements alongside the qualitative result, the laboratory provides spot counts for informational purposes only. The T-SPOT.TB test should not be interpreted as a quantitative test. PANEL B SPOT COUNT CORRECTED FOR NEG CONTROL (test code = 72772-3) 1 NEGATIVE CONTROL (test code = 47009-8) Passed POSITIVE CONTROL (test code = 45393-6) Passed BLANCA (test code = BLANCA) [id number] [facility] HospitalCYTOMEGALOVIRUS ANTIBODY, [id number] 14:51:25* Test Item Value Reference Range Interpretation Comme nts CYTOMEGALOVIRUS, IGG (MANNY ) (test code = 3429) Negative Negative, Equivocal CMV IgG Result Interpretation: </= 0.8 Al Negative 0.9-1.0 Al Equivocal >/=1.1 Al PositiveRUBELLA ANTIBODY, [id number] 14:51:25* Test Item Value Reference Range Interpretation Comme nts RUBELLA IGG QUANTITATION (BE TACOS) (test code = 572) 217.0 IU/mL <8.0 H Rubella IgG Result Interpretation: </= 7.0 IU/mL Negative - Presumed non-immune 8.0 - 9.9 IU/mL Equivocal >= 10.0 IU/mL Positive - Presumed immuneXR mandible 4 views [id number] 14:46:01MANDIBLE 5 VIEWS HISTORY: Liver transplant evaluation COMPARISON: No comparison mandibular imaging FINDINGS: Tee, PA, bilateral oblique, and lateral images of the mandible wereobtained. No mandibul ar fracture is visualized. No bony destruction is visualizedin the mandible. No periapical abscess or dental caries are visualizedin the mandible. No air-fluid levels are visualized in the paranasal sinuses. Electronically Signed By: Mabel Rahman01/25/2025 14:48 CDTWorkstation Name: [id number] Kings HospitalXR MANDIBLE 4 VIEWS [id number] 14:46:01 [facility] : 1970 Sex: FMANDIBLE 5 VIEWSHISTORY: Liver transplant evaluationCOMPARISON: No comparison mandibular imagingFINDINGS:Tee, PA, bilateral oblique, and lateral images of the mandible wereobtained.No mandibular fracture is visualized. No bony destruction is visualizedin the mandible. No periapical abscess or dental caries are visualizedin the mandible.No air-fluid levels are visualized in the paranasal sinuses.Electronically Signed By: Mabel Rahman01/25/2025 14:48 CDTWorkstation Name: [id number] MONITOR, PANEL 1, W/CONF, [id number] 04:18:48* Test Item Value Reference Range Interpretation Comme nts Amphetamines (test code = 01702-9) NEGATIVE <=500 Barbiturates (test code = 35074-3) NEGATIVE <=300 Benzodiazepines (test code = 71122-8) NEGATIVE <=100 Cocaine Metabolite (test code = 3393-6) NEGATIVE <=150 MARIJUANA METABOLITE (QUEST) (test code = 3426-4) NEGATIVE <=20 METHADONE METABOLITE (test code = 3773-9) NEGATIVE <=100 Opiates (test code = 85673-2) NEGATIVE <=100 Oxycodone (test code = 34611-6) NEGATIVE <=100 Phencyclidine (test code = 3936-2) NEGATIVE <=25 Creatinine (test code = 2160-0) 180 mg/dL See_Comment [Automated messa ge] The system which generated this result transmitted reference range: > or = 20.0. The reference range was not used to interpret this result as normal/abnormal. pH (test code = 2756-5) 6.1 4.5-9.0 Oxidant (test code = 81966-6) NEGATIVE See_Comment [Automated messa ge] The system which generated this result transmitted reference range: <200 mcg/mL. The reference range was not used to interpret this result as normal/abnormal. BLANCA (test code = BLANCA) [id number] [facility] HospitalNICOTINE METABOLITE [id number] 04:18:48* Test Item Value Reference Range Interpretation Comme nts NICOTINE SCREEN (test code = 804976966890) NONE DETECTED BLANCA (test code = BLANCA) [id number] [facility] HospitalDRUG MONITORING [id number] 04:18:48NOTES AND COMMENTSQuest Diagnostics-[facility] HospitalRPR2025-03-27 13:19:21* Test Item Value Reference Range Interpretation Comme nts RPR SCREEN (Pixelpipe) (test co de = 420) Nonreactive Nonreactive EBV ANTIBODY, [id number] 08:26:44* Test Item Value Reference Range Interpretation Comme nts ARSLAN PINON VIRAL CAPSID ANTIGEN IGM (BEAKER) (test code = 3418) Negative Negative, Equivocal Arslan Pinon Viral Capsid Antigen IgM Result Interpretation: </= 0.8 Al Negative 0.9-1.0 Al Equivocal >/= 1.1 Al PositiveVARICELLA ZOSTER ANTIBODY, [id number] 08:26:44* Test Item Value Reference Range Interpretation Comme nts VARICELLA ZOSTER IGG (AL) (B EAKER) (test code = 3197) 3.6 VARICELLA ZOSTER RESULT INTERPRETATIONS: <=0.8 Al Nonreactive: Presumed non- immune to VZV 0.9-1.0 Al Equivocal >=1.1 Al Reactive: Presumed immune to VZVEBV ANTIBODY, [id number] 08:26:43* Test Item Value Reference Range Interpretation Comme nts ARSLAN PINON VIRAL CAPSID ANTIGEN IGG (MANNY) (test code = 3415) Positive Negative, Equivocal A Arslan Pinon Viral Capsid Antigen IgG Result Interpretation: </= 0.8 Al Negative 0.9-1.0 Al Equivocal >/= 1.1 Al [id number] 18:13:23* Test Item Value Reference Range Interpretation Comme nts T3 TOTAL (MANNY) (test code = 656) 0.8 ng/mL 0.6-1.8 Insurance Office Manager ID - TCAMACHOXR DXA BONE DENSITY [id number] 16:39:19 [facility] : 1970 Sex: FBone Mineral Density, 01/23/2025 3:15 PM.Clinical History: 54-year-old female, Osteoporosis ScreeningComparison: None available.Discussion: Evaluation of the left hip and lumbar spine was performedusing a Hologic Horizon W bone densitometer. The study is technicallyadequate. The patient's fracture risk is compared to the age matchedcontrol.Findings:Bone Mineral Density Measurement (BMD) -Lumbar Spine: 1.169 gm/vd2Czmd Femoral Neck: 0.722 gm/qn4Vjhjnuzs Deviation as compared to the young adult population (T -score)-Lumbar Spine: 1.1 Left Femoral Neck: -1.1 Standard Deviation as compared to the age matched controls (Z-score)-Lumbar Spine: 2.2Left Femoral Neck: -0.1 IMPRESSION:These findings are consistent with osteopenia. Fracture risk ismoderate. Treatment is advised FRAX 10year fracture risk: Major osteoporotic fracture: 12 %Hip fracture: 0.3 %. Diagnostic criteria (World Health Organization)-Normal: T score at or above -1.0 SDOsteopenia: T score between -1.0 and -2.5 SDOsteoporosis: T score at or below -2.5 SDSevere osteoporosis: Osteoporosis and one or more fragility fracturesElectronically Signed By: Waylon Green01/23/2025 16:41 CDTWorkstation Name: [id number] dxa bone density [id number] 16:39:19Bone Mineral Density, 01/23/2025 3:15 PM. Clinical History: 54-year-old female, Osteoporosis Screening Comparison: None available. Discussion: Evaluation of the left hip and lumbar spine was performedusing a Hologic Horizon W bone densitometer. The study is technicallyadequate. The patient's fracture risk is compared to the age matchedcontrol. Findings: Bone Mineral Density Measurement (BMD) -Lumbar Spine: 1.169 gm/kw8Ywkj Femoral Neck: 0.722 gm/cm2 Standard Deviation as compared to the young adult population (T -score)-Lumbar Spine: 1.1 Left Femoral Neck: -1.1 Standard Deviation as compared to the age matched controls (Z-score)-Lumbar Spine: 2.2Left Femoral Neck: -0.1[facility] HospitalCRYPTOCOCCAL ANTIGEN 2025-01-23 16:07:25* Test Item Value Reference Range Interpretation Comme nts CRYPTOCOCCAL ANTIGEN, SERUM (BEAKER) (test code = 1828) Negative Negative, Interference XR chest 2 [id number] 14:58:30Exam: XR CHEST 2 VIEWSDate: 01/23/2025 2:58 PM Indication:liver transplant evaluationComparison: NoneCHI Fabiola HospitalXR CHEST 2 [id number] 14:58:30 [facility] : 1970 Sex: FExam: XR CHEST 2 VIEWSDate: 01/23/2025 2:58 PMIndication:liver transplant evaluationComparison: NoneIMPRESSION:Lines/Tubes:NoneLungs and Pleura :The lungs are well inflated. No focal consolidation orpulmonary edema. No pleural effusions. No pneumothorax.Heart/Mediastinum:The cardiomediastinal silhouette is normal in size andcontour.Bones/Soft Tissues: No acute osseous abnormality.Upper abdomen: Unremarkable.Electronically Signed By: Dayo Flowers01/23/2025 15:00 CDTWorkstation Name: [id number] 10:31:19* Test Item Value Reference Range Interpretation Comme nts HEMOGLOBIN A1C ELECTROPHORESIS (BEAKER) (test code = 3811) 4.5 % See_Comment [Automated me ssage] The system which generated this result transmitted reference range: <=5.6%. The reference range was not used to interpret this result as normal/abnormal. "The A1c is measured using a NGSP-certified method. HbA1c value equal to or greater than 6.5% as the diagnosis cutoff for diabetes. An HbA1c value of 5.7- 6.4% indicates increased risk for diabetes (prediabetes)."Insurance Office Manager ID - ADMPSA 2025-01-23 10:13:45* Test Item Value Reference Range Interpretation Comme nts PROSTATE SPECIFIC ANTIGEN (B EAKER) (test code = 844) < ng/mL 0.0-4.0 [id number] 10:13:30* Test Item Value Reference Range Interpretation Comme nts T4 TOTAL (BEAKER) (test code = 895) 6.8 ug/dL 4.9-11.7 [id number] 10:13:30* Test Item Value Reference Range Interpretation Comme nts THYROID STIMULATING HORMONE (BEAKER) (test code = 772) 3.278 uIU/mL 0.350-4.940 [id number] 10:13:30* Test Item Value Reference Range Interpretation Comme nts TRANSFERRIN (BEAKER) (test c ode = 541) 96 mg/dL 180-382 L Specimen moderately ictericHEPATITIS B CORE ANTIBODY, [id number] 10:13:30* Test Item Value Reference Range Interpretation Comme nts HEPATITIS B CORE IGM ANTIBOD Y (BEAKER) (test code = 645) Nonreactive Nonreactive HIV-1 ANTIGEN WITH HIV-1/2 [id number] 10:13:30* Test Item Value Reference Range Interpretation Comme nts HIV-1 ANTIGEN WITH HIV 1\\T\\2 ANTIBODY (2) (BEAKER) (test code = 2586) Nonreactive Nonreactive VITAMIN D, [id number] 10:09:25* Test Item Value Reference Range Interpretation Comme nts VITAMIN D 25-OH (BEAKER) (te st code = 2764) 11.9 ng/mL 6.6-49.9 Deficiency .......... <20 ng/mLInsufficiency ....... 20-29 ng/mLOptimal ............. 30-80 ng/mLPossible Toxicity ... >150 ng/mLGAMMA GLUTAMYL TRANSFERASE (GGT)2025-01-23 10:06:33* Test Item Value Reference Range Interpretation Comme nts GAMMA GLUTAMYL TRANSFERASE ( BEAKER) (test code = 364) 57 U/L <38 H BILIRUBIN, [id number] 10:06:33* Test Item Value Reference Range Interpretation Comme nts BILIRUBIN DIRECT (BEAKER) (t est code = 706) 3.9 mg/dL 0.1-0.5 H [id number] 10:06:28* Test Item Value Reference Range Interpretation Comme nts MAGNESIUM (BEAKER) (test cod e = 627) 2.0 mg/dL 1.6-2.6 URIC [id number] 10:06:23* Test Item Value Reference Range Interpretation Comme nts URIC ACID (BEAKER) (test cod e = 773) 5.2 mg/dL 2.5-6.2 COMPREHENSIVE METABOLIC [id number] 10:06:12* Test Item Value Reference Range Interpretation Comme nts TOTAL PROTEIN (BEAKER) (test code = 770) 8.3 gm/dL 6.4-8.3 ALBUMIN (BEAKER) (test code = 1145) 3.2 g/dL 3.1-4.5 ALKALINE PHOSPHATASE (BEAKER) (test code = 346) 118 U/L 40-150 BILIRUBIN TOTAL (BEAKER) (test code = 377) 6.8 mg/dL 0.3-1.2 H SODIUM (BEAKER) (test code = 381) 133 meq/L 136-145 L POTASSIUM (BEAKER) (test code = 379) 4.3 meq/L 3.4-5.1 CHLORIDE (BEAKER) (test code = 382) 98 meq/L 98-107 CO2 (BEAKER) (test code = 355) 22 meq/L 22-29 BLOOD UREA NITROGEN (BEAKER) (test code = 354) 4 mg/dL 10-20 L CREATININE (BEAKER) (test code = 358) 0.67 mg/dL 0.50-1.10 GLUCOSE RANDOM (BEAKER) (test code = 652) 106 mg/dL 70-105 H CALCIUM (BEAKER) (test code = 697) 9.4 mg/dL 8.4-10.2 AST (SGOT) (BEAKER) (test code = 353) 68 U/L 11-34 H ALT (SGPT) (BEAKER) (test code = 347) 24 U/L <34 EGFR (BEAKER) (test code = 1092) 103 mL/min/1.73 sq m Interpretation of eG FR values Stage Description Result G1 Normal or high >=90 G2 Mildly decreased 60-89 G3a Mildly to moderately 45-59 G3b Moderately to severely 30-44 G4 Severly decreased 15-29 G5 Kidney failure <15Reported eGFR is based on the CKD-EPI 2020 equation that does not use a race coefficientEstimated GFR is not as accurate as Creatinine Clearance in predicting glomerular filtration rate. Estimated GFR is not applicable for dialysis patients LIPID [id number] 10:06:02* Test Item Value Reference Range Interpretation Comme nts TRIGLYCERIDES (BEAKER) (test code = 540) 87 mg/dL CHOLESTEROL (BEAKER) (test c ode = 631) 139 mg/dL HDL CHOLESTEROL (BEAKER) (te st code = 976) 31 mg/dL LDL CHOLESTEROL CALCULATED ( BEAKER) (test code = 633) 91 mg/dL Triglyceride Reference Range: Low Risk <150 Borderline 150-199 High Risk 200-499 Very High Risk >=500Cholesterol Reference Range: Low Risk <200 Borderline 200-239 High Risk >240HDL Cholesterol Reference Range: Low Risk >=60 High Risk <40LDL Cholesterol Reference Range: Optimal <100 Near Optimal 100-129 Borderline 130-159 High 160-189 Very High >=[id number] 10:05:05* Test Item Value Reference Range Interpretation Comme nts PHOSPHORUS (BEAKER) (test co de = 604) 3.7 mg/dL 2.5-4.5 [id number] 10:02:09* Test Item Value Reference Range Interpretation Comme nts ETHANOL (BEAKER) (test code = 400) < mg/dL <=10 VOUXC-5-[id number] 09:58:20* Test Item Value Reference Range Interpretation Comme nts ALPHA-1 ANTITRYPSIN (BEAKER) (test code = 502) 169.40 mg/dL 90.00-200.00 CALCIUM, [id number] 09:58:05* Test Item Value Reference Range Interpretation Comme nts CALCIUM IONIZED (BEAKER) (te st code = 698) 1.21 mmol/L 1.12-1.27 PH, BLOOD (BEAKER) (test cod e = 1810) 7.33 [id number] 09:38:53* Test Item Value Reference Range Interpretation Comme nts FIBRINOGEN LEVEL (BEAKER) (t est code = 658) 197 mg/dl 155-431 Insurance Office Manager ID -PROTHROMBIN TIME/BWS2309-52-10 09:38:53* Test Item Value Reference Range Interpretation Comme nts PROTIME (BEAKER) (test code = 759) 17.3 seconds 9.9-12.7 H INR (BEAKER) (test code = 370) 1.54 See Comment RECOMMENDED COUMADIN/WARFARIN INR THERAPY RANGESSTANDARD DOSE: 2.0 - 3.0 Includes: PROPHYLAXIS for venous thrombosis, systemic embolization; TREATMENT for venous thrombosis and/or pulmonary embolus.HIGH RISK: Target INR is 2.5-3.5 for patients with mechanical heart valves.Insurance Office Manager ID -[id number] 09:38:53* Test Item Value Reference Range Interpretation Comme nts PARTIAL THROMBOPLASTIN TIME (BEAKER) (test code = 760) 44.6 seconds 26.8-37.1 H Insurance Office Manager ID -Urinalysis w/Rcesxudzdtz6041-42-07 09:35:04* Test Item Value Reference Range Interpretation Comme nts Color, UA (test code = 5778-6) Dark Yellow Clarity, UA (test code = 5767-9) Hazy Specific Hathaway, UA (test code = 5811-5) 1.02 1.001-1.035 pH, UA (test code = 5803-2) 6 5.0-8.0 Protein, UA (test code = 68307-9) 20 mg/dL Negative A Glucose, UA (test code = 365) Negative Negative Ketones, UA (test code = 2514-8) Negative Negative Bilirubin, UA (test code = 02208-9) Positive Negative A Blood, UA (test code = 99598-9) Negative Negative Nitrite, UA (test code = 5802-4) Negative Negative Leukocytes, UA (test code = 5799-2) Negative Negative Urobilinogen, UA (test code = 28656-7) 12 0.2-1.0 H RBC, UA (test code = 03588-3) 1 See_Comment [Automated message] The system which generated this result transmitted reference range: /HPF. The reference range was not used to interpret this result as normal/abnormal. WBC, UA (test code = 5821-4) 2 See_Comment [Automated message] The system which generated this result transmitted reference range: /HPF. The reference range was not used to interpret this result as normal/abnormal. Mucus (test code = 8247-9) Rare Squam Epithel, UA (test code = 72735-9) 15 See_Comment [Automated message] The system which generated this result transmitted reference range: /HPF. The reference range was not used to interpret this result as normal/abnormal. Specimen Source (test code = 2795) Urine, Voided BLANCA (test code = BLANCA) Insurance Office Manager ID - [auto]Insurance Office Manager ID - tech Lab Interpretation (test code = 65036-5) Abnormal [facility]UR[facility] W/ OUHZDEONRCE5798-93-65 09:35:04* Test Item Value Reference Range Interpretation Comme nts COLOR (BEAKER) (test code = 470) Dark Yellow CLARITY (BEAKER) (test code = 469) Hazy SPECIFIC GRAVITY UA (BEAKER) (test code = 468) 1.020 1.001-1.035 PH UA (BEAKER) (test code = 467) 6.0 5.0-8.0 PROTEIN UA (BEAKER) (test co de = 464) 20 mg/dL Negative A GLUCOSE UA (BEAKER) (test co de = 365) Negative Negative KETONES UA (BEAKER) (test co de = 371) Negative Negative BILIRUBIN UA (BEAKER) (test code = 462) Positive Negative A BLOOD UA (BEAKER) (test code = 461) Negative Negative NITRITE UA (BEAKER) (test co de = 465) Negative Negative LEUKOCYTE ESTERASE UA (BEAKE R) (test code = 466) Negative Negative UROBILINOGEN UA (BEAKER) (te st code = 463) 12 0.2-1.0 H RBC UA (BEAKER) (test code = 519) 1 /HPF WBC UA (BEAKER) (test code = 520) 2 /HPF MUCUS (BEAKER) (test code = 1574) Rare SQUAMOUS EPITHELIAL (BEAKER) (test code = 516) 15 /HPF SOURCE(BEAKER) (test code = 2795) Urine, Voided Insurance Office Manager ID - [auto]Insurance Office Manager ID - techCBC W/PLT COUNT & AUTO DIFFERENTIAL 2025-01-23 09:27:04* Test Item Value Reference Range Interpretation Comme nts WHITE BLOOD CELL COUNT (BEAK ER) (test code = 775) 6.3 K/ L 3.5-10.5 RED BLOOD CELL COUNT (BEAKER ) (test code = 761) 3.89 M/ L 3.93-5.22 L HEMOGLOBIN (BEAKER) (test co de = 410) 14.1 GM/DL 11.2-15.7 HEMATOCRIT (BEAKER) (test co de = 411) 41.6 % 34.1-44.9 MEAN CORPUSCULAR VOLUME (LUCAS KER) (test code = 753) 107 fL 79-95 H MEAN CORPUSCULAR HEMOGLOBIN (BEAKER) (test code = 751) 36.2 pg 25.6-32.2 H MEAN CORPUSCULAR HEMOGLOBIN CONC (BEAKER) (test code = 752) 33.9 GM/DL 32.2-35.5 RED CELL DISTRIBUTION WIDTH (BEAKER) (test code = 412) 12.1 % 11.7-14.4 PLATELET COUNT (BEAKER) (troy t code = 756) 168 K/CU MM 150-450 MEAN PLATELET VOLUME (BEAKER ) (test code = 754) 11.4 fL 9.4-12.3 NUCLEATED RED BLOOD CELLS (BEAKER) (test code = 413) 0 /100 WBC 0-0 NEUTROPHILS RELATIVE PERCENT (BEAKER) (test code = 429) 66 % LYMPHOCYTES RELATIVE PERCENT (BEAKER) (test code = 430) 21 % MONOCYTES RELATIVE PERCENT (BEAKER) (test code = 431) 9 % EOSINOPHILS RELATIVE PERCENT (BEAKER) (test code = 432) 2 % BASOPHILS RELATIVE PERCENT (BEAKER) (test code = 437) 1 % NEUTROPHILS ABSOLUTE COUNT (BEAKER) (test code = 670) 4.12 K/ L 1.56-6.13 LYMPHOCYTES ABSOLUTE COUNT (BEAKER) (test code = 414) 1.32 K/ L 1.18-3.74 MONOCYTES ABSOLUTE COUNT (BE TACOS) (test code = 415) 0.59 K/ L 0.24-0.36 H EOSINOPHILS ABSOLUTE COUNT (BEAKER) (test code = 416) 0.15 K/ L 0.04-0.36 BASOPHILS ABSOLUTE COUNT (BE TACOS) (test code = 417) 0.05 K/ L 0.01-0.08 IMMATURE GRANULOCYTES-RELATI VE PERCENT (BEAKER) (test code = 2801) 0.30 % 0.00-1.00 US ABDOMEN [id number] 09:44:44 [facility] : 1970 Sex: FTECHNIQUE: Grayscale ultrasound of the abdomen.INDICATION: ascites.COMPARISON: None. FINDINGS/IMPRESSION:Focused sonography was performed of all four abdominal quadrants toassess for ascites.No significant ascites seen.Electronically Signed By: Gustavo Ruvalcaba01/09/2025 09:46 CDTWorkstation Name: [id number] [id number] 20:01:03* Test Item Value Reference Range Interpretation Comme nts CULTURE (BEAKER) (test code = 1095) No growth in 5 days BLOOD [id number] 20:01:03* Test Item Value Reference Range Interpretation Comme nts CULTURE (BEAKER) (test code = 1095) No growth in 5 days PROTHROMBIN TIME/VBT3515-30-95 04:48:33* Test Item Value Reference Range Interpretation Comme nts PROTIME (BEAKER) (test code = 759) 22.4 seconds 9.9-12.7 H INR (BEAKER) (test code = 370) 2.01 See Comment RECOMMENDED COUMADIN/WARFARIN INR THERAPY RANGESSTANDARD DOSE: 2.0 - 3.0 Includes: PROPHYLAXIS for venous thrombosis, systemic embolization; TREATMENT for venous thrombosis and/or pulmonary embolus.HIGH RISK: Target INR is 2.5-3.5 for patients with mechanical heart valves.Insurance Office Manager ID -COMPREHENSIVE METABOLIC XWYVY4859-14-25 04:44:53* Test Item Value Reference Range Interpretation Comme nts TOTAL PROTEIN (BEAKER) (test code = 770) 6.8 gm/dL 6.4-8.3 ALBUMIN (BEAKER) (test code = 1145) 2.2 g/dL 3.5-5.0 L ALKALINE PHOSPHATASE (BEAKER) (test code = 346) 109 U/L 40-150 BILIRUBIN TOTAL (BEAKER) (test code = 377) 13.1 mg/dL 0.2-1.2 H SODIUM (BEAKER) (test code = 381) 135 meq/L 136-145 L POTASSIUM (BEAKER) (test code = 379) 4.3 meq/L 3.4-5.1 CHLORIDE (BEAKER) (test code = 382) 106 meq/L 98-107 CO2 (BEAKER) (test code = 355) 23 meq/L 22-29 BLOOD UREA NITROGEN (BEAKER) (test code = 354) 3 mg/dL 10-20 L CREATININE (BEAKER) (test code = 358) 0.68 mg/dL 0.57-1.11 GLUCOSE RANDOM (BEAKER) (test code = 652) 103 mg/dL 70-105 CALCIUM (BEAKER) (test code = 697) 8.1 mg/dL 8.4-10.2 L AST (SGOT) (BEAKER) (test code = 353) 103 U/L 5-34 H ALT (SGPT) (BEAKER) (test code = 347) 31 U/L <55 EGFR (BEAKER) (test code = 1092) 103 mL/min/1.73 sq m Interpretation of eG FR values Stage Description Result G1 Normal or high >=90 G2 Mildly decreased 60-89 G3a Mildly to moderately 45-59 G3b Moderately to severely 30-44 G4 Severly decreased 15-29 G5 Kidney failure <15Reported eGFR is based on the CKD-EPI 2020 equation that does not use a race coefficientEstimated GFR is not as accurate as Creatinine Clearance in predicting glomerular filtration rate. Estimated GFR is not applicable for dialysis patients Specimen markedly ictericCBC (HEMOGRAM ONLY)2024-12-28 04:26:06* Test Item Value Reference Range Interpretation Comme nts WHITE BLOOD CELL COUNT (BEAK ER) (test code = 775) 7.7 K/ L 3.5-10.5 RED BLOOD CELL COUNT (BEAKER ) (test code = 761) 3.10 M/ L 3.93-5.22 L HEMOGLOBIN (BEAKER) (test co de = 410) 11.4 GM/DL 11.2-15.7 HEMATOCRIT (BEAKER) (test co de = 411) 34.3 % 34.1-44.9 MEAN CORPUSCULAR VOLUME (LUCAS KER) (test code = 753) 111 fL 79-95 H MEAN CORPUSCULAR HEMOGLOBIN (BEAKER) (test code = 751) 36.8 pg 25.6-32.2 H MEAN CORPUSCULAR HEMOGLOBIN CONC (BEAKER) (test code = 752) 33.2 GM/DL 32.2-35.5 RED CELL DISTRIBUTION WIDTH (BEAKER) (test code = 412) 15.1 % 11.7-14.4 H PLATELET COUNT (BEAKER) (troy t code = 756) 151 K/CU MM 150-450 MEAN PLATELET VOLUME (BEAKER ) (test code = 754) 9.4 fL 9.4-12.3 NUCLEATED RED BLOOD CELLS (BEAKER) (test code = 413) 0 /100 WBC 0-0 ANTI-NUCLEAR ANTIBODY (BRISSA)2024-12-27 12:20:59* Test Item Value Reference Range Interpretation Comme nts ANTI-NUCLEAR ANTIBODY (BRISSA) (BEAKER) (test code = 418) Negative Negative Test performed by IFA method.Test performed by IFA method.Urine Culture 2024-12-27 09:49:04* Test Item Value Reference Range Interpretation Comme nts Result (test code = 6463-4) 10-19,000 col/mL skin jonathan BLANCA (test code = BLANCA) If your patient does not have signs or symptoms of UTI, it is recommended NOT to treat, with the exception of and prior to urologic procedures. [facility]IM[facility] ([facility]G)2024-12-27 05:06:36* Test Item Value Reference Range Interpretation Comme nts IMMUNOGLOBULIN G (IGG) (BEAK ER) (test code = 427) 1977 mg/dL 552-1631 H COMPREHENSIVE METABOLIC [id number] 04:53:34* Test Item Value Reference Range Interpretation Comme nts TOTAL PROTEIN (BEAKER) (test code = 770) 6.7 gm/dL 6.4-8.3 ALBUMIN (BEAKER) (test code = 1145) 2.1 g/dL 3.5-5.0 L ALKALINE PHOSPHATASE (BEAKER) (test code = 346) 109 U/L 40-150 BILIRUBIN TOTAL (BEAKER) (test code = 377) 14.6 mg/dL 0.2-1.2 H SODIUM (BEAKER) (test code = 381) 133 meq/L 136-145 L POTASSIUM (BEAKER) (test code = 379) 4.0 meq/L 3.4-5.1 CHLORIDE (BEAKER) (test code = 382) 105 meq/L 98-107 CO2 (BEAKER) (test code = 355) 22 meq/L 22-29 BLOOD UREA NITROGEN (BEAKER) (test code = 354) 4 mg/dL 10-20 L CREATININE (BEAKER) (test code = 358) 0.62 mg/dL 0.57-1.11 GLUCOSE RANDOM (BEAKER) (test code = 652) 136 mg/dL 70-105 H CALCIUM (BEAKER) (test code = 697) 8.1 mg/dL 8.4-10.2 L AST (SGOT) (BEAKER) (test code = 353) 106 U/L 5-34 H ALT (SGPT) (BEAKER) (test code = 347) 32 U/L <55 EGFR (BEAKER) (test code = 1092) 105 mL/min/1.73 sq m Interpretation of eG FR values Stage Description Result G1 Normal or high >=90 G2 Mildly decreased 60-89 G3a Mildly to moderately 45-59 G3b Moderately to severely 30-44 G4 Severly decreased 15-29 G5 Kidney failure <15Reported eGFR is based on the CKD-EPI 2020 equation that does not use a race coefficientEstimated GFR is not as accurate as Creatinine Clearance in predicting glomerular filtration rate. Estimated GFR is not applicable for dialysis patients Specimen markedly ictericPROTHROMBIN TIME/[id number] 04:51:56* Test Item Value Reference Range Interpretation Comme nts PROTIME (BEAKER) (test code = 759) 22.1 seconds 9.9-12.7 H INR (BEAKER) (test code = 370) 1.98 See Comment RECOMMENDED COUMADIN/WARFARIN INR THERAPY RANGESSTANDARD DOSE: 2.0 - 3.0 Includes: PROPHYLAXIS for venous thrombosis, systemic embolization; TREATMENT for venous thrombosis and/or pulmonary embolus.HIGH RISK: Target INR is 2.5-3.5 for patients with mechanical heart valves.Insurance Office Manager ID -CBC (HEMOGRAM ONLY) 2024-12-27 04:38:41* Test Item Value Reference Range Interpretation Comme nts WHITE BLOOD CELL COUNT (BEAK ER) (test code = 775) 9.1 K/ L 3.5-10.5 RED BLOOD CELL COUNT (BEAKER ) (test code = 761) 2.94 M/ L 3.93-5.22 L HEMOGLOBIN (BEAKER) (test co de = 410) 10.9 GM/DL 11.2-15.7 L HEMATOCRIT (BEAKER) (test co de = 411) 32.5 % 34.1-44.9 L MEAN CORPUSCULAR VOLUME (LUCAS KER) (test code = 753) 111 fL 79-95 H MEAN CORPUSCULAR HEMOGLOBIN (BEAKER) (test code = 751) 37.1 pg 25.6-32.2 H MEAN CORPUSCULAR HEMOGLOBIN CONC (BEAKER) (test code = 752) 33.5 GM/DL 32.2-35.5 RED CELL DISTRIBUTION WIDTH (BEAKER) (test code = 412) 15.3 % 11.7-14.4 H PLATELET COUNT (BEAKER) (troy t code = 756) 159 K/CU MM 150-450 MEAN PLATELET VOLUME (BEAKER ) (test code = 754) 9.8 fL 9.4-12.3 NUCLEATED RED BLOOD CELLS (BEAKER) (test code = 413) 0 /100 WBC 0-0 US ABDOMEN [id number] 09:44:42 [facility] : 1970 Sex: FTECHNIQUE: Grayscale ultrasound of the right abdomen.INDICATION: ABDOMINAL PAINASCIT ES.COMPARISON: CT from 12/25/2024.FINDINGS/IMPRESSION:Small volume ascites in the right upper quadrant, right lower quadrant,and midline pelvisElectronically Signed By: Tay Funes12/26/2024 09:46 CDTWorkstation Name: [id number] abdomen [id number] 09:44:42TECHNIQUE: Grayscale ultrasound of the right abdomen. INDICATION: ABDOMINAL PAINASCITES. COMPARISON: CT from 12/25/2024. FINDINGS/[facility] [id number] 04:56:46* Test Item Value Reference Range Interpretation Comme nts MAGNESIUM (BEAKER) (test code = 627) 1.8 mg/dL 1.6-2.6 Specimen sligh tly hemolyzed [id number] 04:56:46* Test Item Value Reference Range Interpretation Comme nts PHOSPHORUS (BEAKER) (test code = 604) 3.4 mg/dL 2.3-4.7 Specimen sligh tly hemolyzed BASIC METABOLIC [id number] 04:56:46* Test Item Value Reference Range Interpretation Comme nts SODIUM (BEAKER) (test code = 381) 132 meq/L 136-145 L POTASSIUM (BEAKER) (test code = 379) 4.1 meq/L 3.4-5.1 Specimen slightl y hemolyzed CHLORIDE (BEAKER) (test code = 382) 105 meq/L 98-107 CO2 (BEAKER) (test code = 355) 20 meq/L 22-29 L BLOOD UREA NITROGEN (BEAKER) (test code = 354) 4 mg/dL 10-20 L CREATININE (BEAKER) (test code = 358) 0.59 mg/dL 0.57-1.11 Specimen slightl y hemolyzed GLUCOSE RANDOM (BEAKER) (test code = 652) 102 mg/dL 70-105 CALCIUM (BEAKER) (test code = 697) 8.2 mg/dL 8.4-10.2 L EGFR (BEAKER) (test code = 1092) 106 mL/min/1.73 sq m Interpretation of eG FR values Stage Description Result G1 Normal or high >=90 G2 Mildly decreased 60-89 G3a Mildly to moderately 45-59 G3b Moderately to severely 30-44 G4 Severly decreased 15-29 G5 Kidney failure <15Reported eGFR is based on the CKD-EPI 2020 equation that does not use a race coefficientEstimated GFR is not as accurate as Creatinine Clearance in predicting glomerular filtration rate. Estimated GFR is not applicable for dialysis patients Specimen markedly ictericHEPATIC FUNCTION [id number] 04:56:46* Test Item Value Reference Range Interpretation Comme nts TOTAL PROTEIN (BEAKER) (test code = 770) 6.7 gm/dL 6.4-8.3 Specimen sligh tly hemolyzed ALBUMIN (BEAKER) (test code = 1145) 2.1 g/dL 3.5-5.0 L Specimen slightl y hemolyzed BILIRUBIN TOTAL (BEAKER) (test code = 377) 15.8 mg/dL 0.2-1.2 H Specimen slightl y hemolyzed BILIRUBIN DIRECT (BEAKER) (test code = 706) 10.5 mg/dL 0.1-0.5 H Specimen slightl y hemolyzed ALKALINE PHOSPHATASE (BEAKER) (test code = 346) 102 U/L 40-150 AST (SGOT) (BEAKER) (test code = 353) 113 U/L 5-34 H Specimen sligh tly hemolyzed ALT (SGPT) (BEAKER) (test code = 347) 32 U/L <55 Specimen sligh tly hemolyzed Specimen markedly ictericPROTHROMBIN TIME/[id number] 04:54:01* Test Item Value Reference Range Interpretation Comme nts PROTIME (BEAKER) (test code = 759) 22.9 seconds 9.9-12.7 H INR (BEAKER) (test code = 370) 2.06 See Comment RECOMMENDED COUMADIN/WARFARIN INR THERAPY RANGESSTANDARD DOSE: 2.0 - 3.0 Includes: PROPHYLAXIS for venous thrombosis, systemic embolization; TREATMENT for venous thrombosis and/or pulmonary embolus.HIGH RISK: Target INR is 2.5-3.5 for patients with mechanical heart valves.Insurance Office Manager ID -CBC W/PLT COUNT & AUTO [id number] 04:36:32* Test Item Value Reference Range Interpretation Comme nts WHITE BLOOD CELL COUNT (BEAK ER) (test code = 775) 9.1 K/ L 3.5-10.5 RED BLOOD CELL COUNT (BEAKER ) (test code = 761) 3.12 M/ L 3.93-5.22 L HEMOGLOBIN (BEAKER) (test co de = 410) 11.5 GM/DL 11.2-15.7 HEMATOCRIT (BEAKER) (test co de = 411) 34.3 % 34.1-44.9 MEAN CORPUSCULAR VOLUME (LUCAS KER) (test code = 753) 110 fL 79-95 H MEAN CORPUSCULAR HEMOGLOBIN (BEAKER) (test code = 751) 36.9 pg 25.6-32.2 H MEAN CORPUSCULAR HEMOGLOBIN CONC (BEAKER) (test code = 752) 33.5 GM/DL 32.2-35.5 RED CELL DISTRIBUTION WIDTH (BEAKER) (test code = 412) 15.9 % 11.7-14.4 H PLATELET COUNT (BEAKER) (troy t code = 756) 149 K/CU MM 150-450 L MEAN PLATELET VOLUME (BEAKER ) (test code = 754) 9.6 fL 9.4-12.3 NUCLEATED RED BLOOD CELLS (BEAKER) (test code = 413) 0 /100 WBC 0-0 NEUTROPHILS RELATIVE PERCENT (BEAKER) (test code = 429) 75 % LYMPHOCYTES RELATIVE PERCENT (BEAKER) (test code = 430) 12 % MONOCYTES RELATIVE PERCENT (BEAKER) (test code = 431) 10 % EOSINOPHILS RELATIVE PERCENT (BEAKER) (test code = 432) 2 % BASOPHILS RELATIVE PERCENT (BEAKER) (test code = 437) 0 % NEUTROPHILS ABSOLUTE COUNT (BEAKER) (test code = 670) 6.78 K/ L 1.56-6.13 H LYMPHOCYTES ABSOLUTE COUNT (BEAKER) (test code = 414) 1.07 K/ L 1.18-3.74 L MONOCYTES ABSOLUTE COUNT (BE TACOS) (test code = 415) 0.94 K/ L 0.24-0.36 H EOSINOPHILS ABSOLUTE COUNT (BEAKER) (test code = 416) 0.17 K/ L 0.04-0.36 BASOPHILS ABSOLUTE COUNT (BE TACOS) (test code = 417) 0.04 K/ L 0.01-0.08 IMMATURE GRANULOCYTES-RELATI VE PERCENT (BEAKER) (test code = 2801) 0.70 % 0.00-1.00 CT ABDOMEN/PELVIS WITH IV CONTRAST Standard [id number] 00:08:00 TECHNIQUE: CT of the abdomen and pelvis WITH intravenous contrast andWITHOUT oral contrast. Dose modulation, iterative reconstruction, and/orweight-based adjustment of the mA/kV was utilized to reduce theradiation dose to as low as reasonably achievable. INDICATION: Unlisted Reason for [id number] female with history of decompensated cirrhosis, prior CVA,presenting with abdominal pain and ascites, diffuse abd pain,distension. COMPARISON: 12/08/2024. FINDINGS: LOWER THORAX: Trace left pleural effusion/pleural thickening.. HEPATOBILIARY: Heterogeneous appearance of the liver is noted diffusely,as before.. Changes of cholecystectomy.. No biliary ductal dilatation.Patient's known changes of ci rrhosis of the liver are seen.SPLEEN: Mild splenomegaly, as before..PANCREAS: No focal masses or ductal dilatation. ADRENALS: No adrenal nodules.KIDNEYS/URETERS: No hydronephrosis, stones, or masses.PELVIC ORGANS/BLADDER: Hysterectomy.. PERITONEUM/RETROPERITONEUM: Free fluid within the abdomen and pelvis, asbefore..LYMPH NODES: No lymphadenopathy.VESSELS: Portosystemic collaterals are seen.. GI TRACT: Wall thickening of the ascending colon is again noted, asdescribed previously.. Likely appendicectomy. BONES AND SOFT TISSUES: No acute osseous abnormality. Soft tissues areunremarkable.[facility] [id number] 00:08:00 [facility] : 1970 Sex: FTECHNIQUE: CT of the abdomen and pelvis WITH intravenous contrast andWITHOUT oral contrast. Dose modulation, iterative reconstruction, and/orweight-based adjustment of the mA/kV was utilized to reduce theradiation dose to as low as reasonably achievable.INDICATION: Unlisted Reason for [id number] female with history of decompensated cirrhosis, prior CVA,presenting with abdominal pain and ascites, diffuse abd pain,distension.COMPARISON: 12/08/2024.FINDINGS:LOWER THORAX: Trace left pleural effusion/pleural thickening..HEPATOBILIARY: Heterogeneous appearance of the liver is noted diffusely,as before.. Changes of cholecystectomy.. No biliary ductal dilatation.Patient's known changes of cirrhosis of the liver are seen.SPLEEN: Mild splenomegaly, as before..PANCREAS: No focal masses or ductal dilatation.ADRENALS: No adrenal nodules.KIDNEYS/URETERS: No hydronephrosis, stones, or masses.PELVIC ORGANS/BLADDER: Hysterectomy..PERITONEUM/RETROPERITONEUM: Free fluid within the abdomen and pelvis, asbefore..LYMPH NODES: No lymphadenopathy.VESSELS: Portosystemic collaterals are seen..GI TRACT: Wall thickening of the ascending colon is again noted, asdescribed previously.. Likelyappendicectomy.BONES AND SOFT TISSUES: No acute osseous abnormality. Soft tissues areunremarkable.IM PRESSION:No significant change since the previous examination. Patient's knownchanges of cirrhosis of the liver with portal hypertension are seenincluding splenomegaly and free fluid within the abdomen/pelvis.Inhomogenous appearance of the liver is noted. If there is clinicalconcern for discrete mas s, further evaluation with multiphase MRIsuggested.Wall thickening of the ascending colon is noted,as describedpreviously.See above discussion for other findings and details..Electronically Signed By: Magdaleno Putnam MD12/26/2024 00:11 CDTWorkstation Name: [id number] METABOLIC [id number] 19:53:29 * Test Item Value Reference Range Interpretation Comme nts TOTAL PROTEIN (BEAKER) (test code = 770) 7.8 gm/dL 6.4-8.3 ALBUMIN (BEAKER) (test code = 1145) 2.5 g/dL 3.5-5.0 L ALKALINE PHOSPHATASE (BEAKER) (test code = 346) 124 U/L 40-150 BILIRUBIN TOTAL (BEAKER) (test code = 377) 19.1 mg/dL 0.2-1.2 H SODIUM (BEAKER) (test code = 381) 134 meq/L 136-145 L POTASSIUM (BEAKER) (test code = 379) 3.9 meq/L 3.4-5.1 CHLORIDE (BEAKER) (test code = 382) 103 meq/L 98-107 CO2 (BEAKER) (test code = 355) 22 meq/L 22-29 BLOOD UREA NITROGEN (BEAKER) (test code = 354) 4 mg/dL 10-20 L CREATININE (BEAKER) (test code = 358) 0.68 mg/dL 0.57-1.11 GLUCOSE RANDOM (BEAKER) (test code = 652) 116 mg/dL 70-105 H CALCIUM (BEAKER) (test code = 697) 8.6 mg/dL 8.4-10.2 AST (SGOT) (BEAKER) (test code = 353) 128 U/L 5-34 H ALT (SGPT) (BEAKER) (test code = 347) 39 U/L <55 EGFR (BEAKER) (test code = 1092) 103 mL/min/1.73 sq m Interpretation of eG FR values Stage Description Result G1 Normal or high >=90 G2 Mildly decreased 60-89 G3a Mildly to moderately 45-59 G3b Moderately to severely 30-44 G4 Severly decreased 15-29 G5 Kidney failure <15Reported eGFR is based on the CKD-EPI 2020 equation that does not use a race coefficientEstimated GFR is not as accurate as Creatinine Clearance in predicting glomerular filtration rate. Estimated GFR is not applicable for dialysis patients Specimen markedly [id number] 19:53:29* Test Item Value Reference Range Interpretation Comme nts LIPASE (MANNY) (test code = 749) 19 U/L <=60 Specimen markedly ictericPROTHROMBIN TIME/[id number] 19:51:06* Test Item Value Reference Range Interpretation Comme nts PROTIME (MANNY) (test code = 759) 19.7 seconds 9.9-12.7 H INR (MANNY) (test code = 370) 1.76 See Comment RECOMMENDED COUMADIN/WARFARIN INR THERAPY RANGESSTANDARD DOSE: 2.0 - 3.0 Includes: PROPHYLAXIS for venous thrombosis, systemic embolization; TREATMENT for venous thrombosis and/or pulmonary embolus.HIGH RISK: Target INR is 2.5-3.5 for patients with mechanical heart valves.Insurance Office Manager ID -[id number] 19:51:06* Test Item Value Reference Range Interpretation Comme nts PARTIAL THROMBOPLASTIN TIME (MANNY) (test code = 760) 46.1 seconds 26.8-37.1 H Insurance Office Manager ID -Urinalysis w/Microscopic + Reflex to [id number] 19:38:23* Test Item Value Reference Range Interpretation Comme nts Color, UA (test code = 5778-6) Dark Yellow Clarity, UA (test code = 5767-9) Hazy Specific Hathaway, UA (test code = 5811-5) 1.022 1.001-1.035 pH, UA (test code = 5803-2) 6 5.0-8.0 Protein, UA (test code = 02496-0) 30 mg/dL Negative A Glucose, UA (test code = 365) Negative Negative Ketones, UA (test code = 2514-8) Negative Negative Bilirubin, UA (test code = 61159-4) Positive Negative A Blood, UA (test code = 21273-9) Negative Negative Nitrite, UA (test code = 5802-4) Negative Negative Leukocytes, UA (test code = 5799-2) Negative Negative Urobilinogen, UA (test code = 44353-9) 8 0.2-1.0 H RBC, UA (test code = 29079-1) 12 See_Comment [Automated message] The system which generated this result transmitted reference range: /HPF. The reference range was not used to interpret this result as normal/abnormal. WBC, UA (test code = 5821-4) 13 See_Comment [Automated message] The system which generated this result transmitted reference range: /HPF. The reference range was not used to interpret this result as normal/abnormal. Bacteria, UA (test code = 70749-0) Occasional Mucus (test code = 8247-9) Few Squam Epithel, UA (test code = 72315-6) 11 See_Comment [Automated message] The system which generated this result transmitted reference range: /HPF. The reference range was not used to interpret this result as normal/abnormal. Hyaline Casts, UA (test code = 82674-8) 1 See_Comment [Automated message] The system which generated this result transmitted reference range: /LPF. The reference range was not used to interpret this result as normal/abnormal. Yeast (test code = 50448-5) Occasional Specimen Source (test code = 2795) BLANCA (test code = BLANCA) Insurance Office Manager ID - [auto]Insurance Office Manager ID - tech Lab Interpretation (test code = 43792-1) Abnormal [facility]LEX URINE [id number] 19:38:23 * Test Item Value Reference Range Interpretation Comme nts COLOR (BEAKER) (test code = 470) Dark Yellow CLARITY (BEAKER) (test code = 469) Hazy SPECIFIC GRAVITY UA (BEAKER) (test code = 468) 1.022 1.001-1.035 PH UA (BEAKER) (test code = 467) 6.0 5.0-8.0 PROTEIN UA (BEAKER) (test co de = 464) 30 mg/dL Negative A GLUCOSE UA (BEAKER) (test co de = 365) Negative Negative KETONES UA (BEAKER) (test co de = 371) Negative Negative BILIRUBIN UA (BEAKER) (test code = 462) Positive Negative A BLOOD UA (BEAKER) (test code = 461) Negative Negative NITRITE UA (BEAKER) (test co de = 465) Negative Negative LEUKOCYTE ESTERASE UA (BEAKE R) (test code = 466) Negative Negative UROBILINOGEN UA (BEAKER) (te st code = 463) 8 0.2-1.0 H RBC UA (BEAKER) (test code = 519) 12 /HPF WBC UA (BEAKER) (test code = 520) 13 /HPF BACTERIA (BEAKER) (test code = 517) Occasional MUCUS (BEAKER) (test code = 1574) Few SQUAMOUS EPITHELIAL (BEAKER) (test code = 516) 11 /HPF HYALINE CASTS (BEAKER) (test code = 514) 1 /LPF YEAST (BEAKER) (test code = 1585) Occasional SOURCE(BEAKER) (test code = 2795) Insurance Office Manager ID - [auto]Insurance Office Manager ID - techLACTIC ACID, [id number] 19:33:03* Test Item Value Reference Range Interpretation Comme nts LACTATE BLOOD VENOUS (2) (BEAKER) (test code = 2872) 1.41 mmol/L 0.50-2.00 Specimen slightl y hemolyzed Specimen markedly ictericCBC W/PLT COUNT & AUTO [id number] 19:25:57 * Test Item Value Reference Range Interpretation Comme nts WHITE BLOOD CELL COUNT (BEAK ER) (test code = 775) 9.7 K/ L 3.5-10.5 RED BLOOD CELL COUNT (BEAKER ) (test code = 761) 3.42 M/ L 3.93-5.22 L HEMOGLOBIN (BEAKER) (test co de = 410) 12.5 GM/DL 11.2-15.7 HEMATOCRIT (BEAKER) (test co de = 411) 37.6 % 34.1-44.9 MEAN CORPUSCULAR VOLUME (LUCAS KER) (test code = 753) 110 fL 79-95 H MEAN CORPUSCULAR HEMOGLOBIN (BEAKER) (test code = 751) 36.5 pg 25.6-32.2 H MEAN CORPUSCULAR HEMOGLOBIN CONC (BEAKER) (test code = 752) 33.2 GM/DL 32.2-35.5 RED CELL DISTRIBUTION WIDTH (BEAKER) (test code = 412) 15.9 % 11.7-14.4 H PLATELET COUNT (BEAKER) (troy t code = 756) 172 K/CU MM 150-450 MEAN PLATELET VOLUME (BEAKER ) (test code = 754) 9.9 fL 9.4-12.3 NUCLEATED RED BLOOD CELLS (BEAKER) (test code = 413) 0 /100 WBC 0-0 NEUTROPHILS RELATIVE PERCENT (BEAKER) (test code = 429) 80 % LYMPHOCYTES RELATIVE PERCENT (BEAKER) (test code = 430) 9 % MONOCYTES RELATIVE PERCENT (BEAKER) (test code = 431) 9 % EOSINOPHILS RELATIVE PERCENT (BEAKER) (test code = 432) 1 % BASOPHILS RELATIVE PERCENT (BEAKER) (test code = 437) 1 % NEUTROPHILS ABSOLUTE COUNT (BEAKER) (test code = 670) 7.75 K/ L 1.56-6.13 H LYMPHOCYTES ABSOLUTE COUNT (BEAKER) (test code = 414) 0.85 K/ L 1.18-3.74 L MONOCYTES ABSOLUTE COUNT (BE TACOS) (test code = 415) 0.89 K/ L 0.24-0.36 H EOSINOPHILS ABSOLUTE COUNT (BEAKER) (test code = 416) 0.07 K/ L 0.04-0.36 BASOPHILS ABSOLUTE COUNT (BE TACOS) (test code = 417) 0.05 K/ L 0.01-0.08 IMMATURE GRANULOCYTES-RELATI VE PERCENT (BEAKER) (test code = 2801) 0.60 % 0.00-1.00 BLOOD [id number] 20:01:09* Test Item Value Reference Range Interpretation Comme nts CULTURE (BEAKER) (test code = 1095) No growth in 5 days The specimen volume collected for this blood culture was below the optimum (10 mL per bottle or 20 mL total). Use of lower volumes may adversely affect recovery and/or detection times of some organisms.BLOOD [id number] 20:01:09* Test Item Value Reference Range Interpretation Comme nts CULTURE (BEAKER) (test code = 1095) No growth in 5 days The specimen volume collected for this blood culture was below the optimum (10 mL per bottle or 20 mL total). Use of lower volumes may adversely affect recovery and/or detection times of some organisms.US ABDOMEN [id number] 19:52:56[facility] : 1970 Sex: F EXAM: Limited abdominal ultrasoundINDICATION: abdominal distention, ascitesCOMPARISON: None. TECHNIQUE: Casarez scale sonographic evaluation of the four quadrants ofthe abdomen was perfor med.FINDINGS/IMPRESSION:Minimal trace ascites, insufficient for paracentesis to be safe or ofmeaningful therapeutic benefit.Electronically Signed By: Alejo Cordoba12/22/2024 19:55 CDTWorkstation Name: [id number] METABOLIC [id number] 08:10:26* Test Item Value Reference Range Interpretation Comme nts SODIUM (BEAKER) (test code = 381) 132 meq/L 136-145 L POTASSIUM (BEAKER) (test code = 379) 3.8 meq/L 3.4-5.1 CHLORIDE (BEAKER) (test code = 382) 99 meq/L 98-107 CO2 (BEAKER) (test code = 355) 26 meq/L 22-29 BLOOD UREA NITROGEN (BEAKER) (test code = 354) 4 mg/dL 10-20 L CREATININE (BEAKER) (test code = 358) 0.66 mg/dL 0.57-1.11 GLUCOSE RANDOM (BEAKER) (test code = 652) 92 mg/dL 70-105 CALCIUM (BEAKER) (test code = 697) 8.4 mg/dL 8.4-10.2 EGFR (BEAKER) (test code = 1092) 104 mL/min/1.73 sq m Interpretation of eG FR values Stage Description Result G1 Normal or high >=90 G2 Mildly decreased 60-89 G3a Mildly to moderately 45-59 G3b Moderately to severely 30-44 G4 Severly decreased 15-29 G5 Kidney failure <15Reported eGFR is based on the CKD-EPI 2020 equation that does not use a race coefficientEstimated GFR is not as accurate as Creatinine Clearance in predicting glomerular filtration rate. Estimated GFR is not applicable for dialysis patients Specimen markedly ictericHEPATIC FUNCTION [id number] 08:10:26* Test Item Value Reference Range Interpretation Comme nts TOTAL PROTEIN (BEAKER) (test code = 770) 6.6 gm/dL 6.4-8.3 ALBUMIN (BEAKER) (test code = 1145) 2.2 g/dL 3.5-5.0 L BILIRUBIN TOTAL (BEAKER) (te st code = 377) 18.4 mg/dL 0.2-1.2 H BILIRUBIN DIRECT (BEAKER) (t est code = 706) 12.2 mg/dL 0.1-0.5 H ALKALINE PHOSPHATASE (BEAKER ) (test code = 346) 111 U/L 40-150 AST (SGOT) (BEAKER) (test co de = 353) 137 U/L 5-34 H ALT (SGPT) (BEAKER) (test co de = 347) 39 U/L <55 Specimen markedly ictericPROTHROMBIN TIME/[id number] 08:07:07* Test Item Value Reference Range Interpretation Comme nts PROTIME (BEAKER) (test code = 759) 23.2 seconds 9.9-12.7 H INR (BEAKER) (test code = 370) 2.08 See Comment RECOMMENDED COUMADIN/WARFARIN INR THERAPY RANGESSTANDARD DOSE: 2.0 - 3.0 Includes: PROPHYLAXIS for venous thrombosis, systemic embolization; TREATMENT for venous thrombosis and/or pulmonary embolus.HIGH RISK: Target INR is 2.5-3.5 for patients with mechanical heart valves.Insurance Office Manager ID -CBC W/PLT COUNT & AUTO [id number] 07:51:44* Test Item Value Reference Range Interpretation Comme nts WHITE BLOOD CELL COUNT (BEAK ER) (test code = 775) 8.8 K/ L 3.5-10.5 RED BLOOD CELL COUNT (BEAKER ) (test code = 761) 3.06 M/ L 3.93-5.22 L HEMOGLOBIN (BEAKER) (test co de = 410) 11.1 GM/DL 11.2-15.7 L HEMATOCRIT (BEAKER) (test co de = 411) 32.9 % 34.1-44.9 L MEAN CORPUSCULAR VOLUME (LUCAS KER) (test code = 753) 108 fL 79-95 H MEAN CORPUSCULAR HEMOGLOBIN (BEAKER) (test code = 751) 36.3 pg 25.6-32.2 H MEAN CORPUSCULAR HEMOGLOBIN CONC (BEAKER) (test code = 752) 33.7 GM/DL 32.2-35.5 RED CELL DISTRIBUTION WIDTH (BEAKER) (test code = 412) 17.2 % 11.7-14.4 H PLATELET COUNT (BEAKER) (troy t code = 756) 158 K/CU MM 150-450 MEAN PLATELET VOLUME (BEAKER ) (test code = 754) 9.6 fL 9.4-12.3 NUCLEATED RED BLOOD CELLS (BEAKER) (test code = 413) 0 /100 WBC 0-0 NEUTROPHILS RELATIVE PERCENT (BEAKER) (test code = 429) 77 % LYMPHOCYTES RELATIVE PERCENT (BEAKER) (test code = 430) 11 % MONOCYTES RELATIVE PERCENT (BEAKER) (test code = 431) 10 % EOSINOPHILS RELATIVE PERCENT (BEAKER) (test code = 432) 2 % BASOPHILS RELATIVE PERCENT (BEAKER) (test code = 437) 0 % NEUTROPHILS ABSOLUTE COUNT (BEAKER) (test code = 670) 6.74 K/ L 1.56-6.13 H LYMPHOCYTES ABSOLUTE COUNT (BEAKER) (test code = 414) 0.92 K/ L 1.18-3.74 L MONOCYTES ABSOLUTE COUNT (BE TACOS) (test code = 415) 0.86 K/ L 0.24-0.36 H EOSINOPHILS ABSOLUTE COUNT (BEAKER) (test code = 416) 0.16 K/ L 0.04-0.36 BASOPHILS ABSOLUTE COUNT (BE TACOS) (test code = 417) 0.03 K/ L 0.01-0.08 IMMATURE GRANULOCYTES-RELATI VE PERCENT (BEAKER) (test code = 2801) 0.80 % 0.00-1.00 XR abdomen / KUB 1 view [id number] 07:48:17XR ABDOMEN/KUB 1 VIEW PORTABLE CLINICAL INDICATION: r/o constipation ileus COMPARISON: None TECHNIQUE: Single, frontal radiograph of the abdomen. FINDINGS: The bowel gas pattern is nonspecific, but nonobstructive. Evaluation for free air is limited by portable supine technique. Withinthese limitations, no free air is identified. Electronically Signed By: Yaquelin Cooney12/21/2024 07:50 CDTWorkstation Name: [id number] [facility] HospitalXR [facility]BDOMEN/KUB 1 VIEW [id number] 07:48:17[facility] : 1970 Sex: FXR ABDOMEN/KUB 1 VIEW PORTABLECLINICAL INDICATION: r/o constipation ileus COMPARISON: NoneTECHNIQUE: Single, frontal radiograph of the abdomen.FINDINGS: The bowel gas pattern is nonspecific, but nonobstructive.Evaluation for free air is limited by portable supine technique. Withinthese limitations, no free air is identified. Electronically Signed By: Yaquelin Cooney12/21/2024 07:50 CDTWorkstation Name: [id number] 05:29:46* Test Item Value Reference Range Interpretation Comme nts TOTAL PROTEIN (BEAKER) (test code = 770) 6.5 gm/dL 6.4-8.3 ALBUMIN (BEAKER) (test code = 1145) 2.3 g/dL 3.5-5.0 L BILIRUBIN TOTAL (BEAKER) (te st code = 377) 22.9 mg/dL 0.2-1.2 H BILIRUBIN DIRECT (BEAKER) (t est code = 706) 14.6 mg/dL 0.1-0.5 H ALKALINE PHOSPHATASE (BEAKER ) (test code = 346) 117 U/L 40-150 AST (SGOT) (BEAKER) (test co de = 353) 143 U/L 5-34 H ALT (SGPT) (BEAKER) (test co de = 347) 37 U/L <55 Specimen markedly ictericBASIC METABOLIC [id number] 05:26:20* Test Item Value Reference Range Interpretation Comme nts SODIUM (BEAKER) (test code = 381) 131 meq/L 136-145 L POTASSIUM (BEAKER) (test code = 379) 3.7 meq/L 3.4-5.1 CHLORIDE (BEAKER) (test code = 382) 97 meq/L 98-107 L CO2 (BEAKER) (test code = 355) 24 meq/L 22-29 BLOOD UREA NITROGEN (BEAKER) (test code = 354) 5 mg/dL 10-20 L CREATININE (BEAKER) (test code = 358) 0.66 mg/dL 0.57-1.11 GLUCOSE RANDOM (BEAKER) (test code = 652) 131 mg/dL 70-105 H CALCIUM (BEAKER) (test code = 697) 8.3 mg/dL 8.4-10.2 L EGFR (BEAKER) (test code = 1092) 104 mL/min/1.73 sq m Interpretation of eG FR values Stage Description Result G1 Normal or high >=90 G2 Mildly decreased 60-89 G3a Mildly to moderately 45-59 G3b Moderately to severely 30-44 G4 Severly decreased 15-29 G5 Kidney failure <15Reported eGFR is based on the CKD-EPI 2020 equation that does not use a race coefficientEstimated GFR is not as accurate as Creatinine Clearance in predicting glomerular filtration rate. Estimated GFR is not applicable for dialysis patients Specimen markedly ictericPROTHROMBIN TIME/[id number] 05:05:10* Test Item Value Reference Range Interpretation Comme nts PROTIME (BEAKER) (test code = 759) 24.0 seconds 9.9-12.7 H INR (BEAKER) (test code = 370) 2.16 See Comment RECOMMENDED COUMADIN/WARFARIN INR THERAPY RANGESSTANDARD DOSE: 2.0 - 3.0 Includes: PROPHYLAXIS for venous thrombosis, systemic embolization; TREATMENT for venous thrombosis and/or pulmonary embolus.HIGH RISK: Target INR is 2.5-3.5 for patients with mechanical heart valves.Insurance Office Manager ID -CBC W/PLT COUNT & AUTO [id number] 04:48:22* Test Item Value Reference Range Interpretation Comme nts WHITE BLOOD CELL COUNT (BEAK ER) (test code = 775) 9.8 K/ L 3.5-10.5 RED BLOOD CELL COUNT (BEAKER ) (test code = 761) 3.02 M/ L 3.93-5.22 L HEMOGLOBIN (BEAKER) (test co de = 410) 10.9 GM/DL 11.2-15.7 L HEMATOCRIT (BEAKER) (test co de = 411) 32.6 % 34.1-44.9 L MEAN CORPUSCULAR VOLUME (LUCAS KER) (test code = 753) 108 fL 79-95 H MEAN CORPUSCULAR HEMOGLOBIN (BEAKER) (test code = 751) 36.1 pg 25.6-32.2 H MEAN CORPUSCULAR HEMOGLOBIN CONC (BEAKER) (test code = 752) 33.4 GM/DL 32.2-35.5 RED CELL DISTRIBUTION WIDTH (BEAKER) (test code = 412) 17.3 % 11.7-14.4 H PLATELET COUNT (BEAKER) (troy t code = 756) 164 K/CU MM 150-450 MEAN PLATELET VOLUME (BEAKER ) (test code = 754) 10.3 fL 9.4-12.3 NUCLEATED RED BLOOD CELLS (BEAKER) (test code = 413) 0 /100 WBC 0-0 NEUTROPHILS RELATIVE PERCENT (BEAKER) (test code = 429) 78 % LYMPHOCYTES RELATIVE PERCENT (BEAKER) (test code = 430) 10 % MONOCYTES RELATIVE PERCENT (BEAKER) (test code = 431) 10 % EOSINOPHILS RELATIVE PERCENT (BEAKER) (test code = 432) 2 % BASOPHILS RELATIVE PERCENT (BEAKER) (test code = 437) 0 % NEUTROPHILS ABSOLUTE COUNT (BEAKER) (test code = 670) 7.65 K/ L 1.56-6.13 H LYMPHOCYTES ABSOLUTE COUNT (BEAKER) (test code = 414) 0.93 K/ L 1.18-3.74 L MONOCYTES ABSOLUTE COUNT (BE TACOS) (test code = 415) 0.93 K/ L 0.24-0.36 H EOSINOPHILS ABSOLUTE COUNT (BEAKER) (test code = 416) 0.16 K/ L 0.04-0.36 BASOPHILS ABSOLUTE COUNT (BE TACOS) (test code = 417) 0.04 K/ L 0.01-0.08 IMMATURE GRANULOCYTES-RELATI VE PERCENT (BEAKER) (test code = 2801) 0.70 % 0.00-1.00 US ABDOMEN [id number] 22:59:29 [facility] : 1970 Sex: FEXAM: Limited abdominal ultrasoundINDICATION: therapeutic paracentesisCOMPARISON: None. TECHNIQUE: Casarez scale sonographic evaluation of the four quadrants ofthe abdomen was performed.FINDINGS/IMPRESSION:Small volume ascites, insufficient for paracentesis to be of meaningfultherapeutic benefit.Electronically Signed By: Alejo Cordoba12/19/2024 23:01 CDTWorkstation Name: [id number] with Microscopic If [id number] 17:47:31* Test Item Value Reference Range Interpretation Comme nts Color, UA (test code = 5778-6) Dark Yellow Clarity, UA (test code = 5767-9) Hazy Specific Hathaway, UA (test code = 5811-5) 1.009 1.001-1.035 pH, UA (test code = 5803-2) 6.5 5.0-8.0 Protein, UA (test code = 24694-3) Negative Negative Glucose, UA (test code = 365) Negative Negative Ketones, UA (test code = 2514-8) Negative Negative Bilirubin, UA (test code = 95884-7) Positive Negative A Blood, UA (test code = 62798-4) Negative Negative Nitrite, UA (test code = 5802-4) Negative Negative Leukocytes, UA (test code = 5799-2) Negative Negative Urobilinogen, UA (test code = 08725-9) 6 0.2-1.0 H Specimen Source (test code = 2795) BLANCA (test code = BLANCA) Insurance Office Manager ID - [auto] Lab Interpretation (test code = 32129-8) [facility] [id number] 17:47:31* Test Item Value Reference Range Interpretation Comme nts COLOR (BEAKER) (test code = 470) Dark Yellow CLARITY (BEAKER) (test code = 469) Hazy SPECIFIC GRAVITY UA (BEAKER) (test code = 468) 1.009 1.001-1.035 PH UA (BEAKER) (test code = 467) 6.5 5.0-8.0 PROTEIN UA (BEAKER) (test co de = 464) Negative Negative GLUCOSE UA (BEAKER) (test co de = 365) Negative Negative KETONES UA (BEAKER) (test co de = 371) Negative Negative BILIRUBIN UA (BEAKER) (test code = 462) Positive Negative A BLOOD UA (BEAKER) (test code = 461) Negative Negative NITRITE UA (BEAKER) (test co de = 465) Negative Negative LEUKOCYTE ESTERASE UA (BEAKE R) (test code = 466) Negative Negative UROBILINOGEN UA (BEAKER) (te st code = 463) 6 0.2-1.0 H SOURCE(BEAKER) (test code = 2795) Insurance Office Manager ID - [auto]XR chest 2 [id number] 15:41:08Chest, 2 views, 12/19/2024 2:16 PM. History: c/f infection. Comparison: None available. Discussion: The cardiomediastinal silhouette and pulmonary vasculatureare within normal limits. The lungs are clear without evidence ofconsolidation or effusion. Degenerative changes are present in thethoracic spine. There are no acute osseous abnormalities. The softtissues are unremarkable.[facility]XR [facility] [id number] 15:41:08 [facility] : 1970 Sex: FChest, 2 views, 12/19/2024 2:16 PM.History: c/f infection.Comparison: None available.Discussion: The cardiomediastinal silhouette and pulmonary vasculatureare within normal limits. Thelungs are clear without evidence ofconsolidation or effusion. Degenerative changes are present in thethoracic spine. There are no acute osseous abnormalities. The softtissues are unremarkable.IMPRESSION:No acute cardiopulmonary abnormality.Electronically Signed By: Waylon Victoria12/19/2024 15:43 CDTWorkstation Name: [id number] 14:02:29* Test Item Value Reference Range Interpretation Comme nts HEMOGLOBIN A1C ELECTROPHORESIS (Pixelpipe) (test code = 3811) < % See_Comment [Automated me ssage] The system which generated this result transmitted reference range: <=5.6%. The reference range was not used to interpret this result as normal/abnormal. "The A1c is measured using a NGSP-certified method. HbA1c value equal to or greater than 6.5% as the diagnosis cutoff for diabetes. An HbA1c value of 5.7- 6.4% indicates increased risk for diabetes (prediabetes)."Insurance Office Manager ID - ADMOperator ID - ADMHEPATIC FUNCTION [id number] 04:47:59* Test Item Value Reference Range Interpretation Comme nts TOTAL PROTEIN (Pixelpipe) (test code = 770) 6.7 gm/dL 6.4-8.3 ALBUMIN (BEAKER) (test code = 1145) 2.2 g/dL 3.5-5.0 L BILIRUBIN TOTAL (BEAKER) (te st code = 377) 22.0 mg/dL 0.2-1.2 H BILIRUBIN DIRECT (BEAKER) (t est code = 706) 14.4 mg/dL 0.1-0.5 H ALKALINE PHOSPHATASE (BEAKER ) (test code = 346) 111 U/L 40-150 AST (SGOT) (BEAKER) (test co de = 353) 139 U/L 5-34 H ALT (SGPT) (BEAKER) (test co de = 347) 36 U/L <55 Specimen markedly ictericLIPID [id number] 04:47:59* Test Item Value Reference Range Interpretation Comme nts TRIGLYCERIDES (BEAKER) (test code = 540) 116 mg/dL CHOLESTEROL (BEAKER) (test code = 631) 61 mg/dL HDL CHOLESTEROL (BEAKER) (test code = 976) < mg/dL LDL CHOLESTEROL CALCULATED (BEAKER) (test code = 633) > mg/dL Unable to calc ulate Triglyceride Reference Range: Low Risk <150 Borderline 150-199 High Risk 200-499 Very High Risk >=500Cholesterol Reference Range: Low Risk <200 Borderline 200-239 High Risk >240HDL Cholesterol Reference Range: Low Risk >=60 High Risk <40LDL Cholesterol Reference Range: Optimal <100 Near Optimal 100-129 Borderline 130-159 High 160-189 Very High >=190 Specimen markedly icteric [id number] 04:47:13* Test Item Value Reference Range Interpretation Comme nts MAGNESIUM (BEAKER) (test cod e = 627) 2.0 mg/dL 1.6-2.6 [id number] 04:47:13* Test Item Value Reference Range Interpretation Comme nts PHOSPHORUS (BEAKER) (test co de = 604) 3.1 mg/dL 2.3-4.7 BASIC METABOLIC [id number] 04:47:13* Test Item Value Reference Range Interpretation Comme nts SODIUM (BEAKER) (test code = 381) 130 meq/L 136-145 L POTASSIUM (BEAKER) (test code = 379) 3.5 meq/L 3.4-5.1 CHLORIDE (BEAKER) (test code = 382) 98 meq/L 98-107 CO2 (BEAKER) (test code = 355) 24 meq/L 22-29 BLOOD UREA NITROGEN (BEAKER) (test code = 354) 5 mg/dL 10-20 L CREATININE (BEAKER) (test code = 358) 0.68 mg/dL 0.57-1.11 GLUCOSE RANDOM (BEAKER) (test code = 652) 105 mg/dL 70-105 CALCIUM (BEAKER) (test code = 697) 8.2 mg/dL 8.4-10.2 L EGFR (BEAKER) (test code = 1092) 103 mL/min/1.73 sq m Interpretation of eG FR values Stage Description Result G1 Normal or high >=90 G2 Mildly decreased 60-89 G3a Mildly to moderately 45-59 G3b Moderately to severely 30-44 G4 Severly decreased 15-29 G5 Kidney failure <15Reported eGFR is based on the CKD-EPI 2020 equation that does not use a race coefficientEstimated GFR is not as accurate as Creatinine Clearance in predicting glomerular filtration rate. Estimated GFR is not applicable for dialysis patients Specimen markedly ictericPROTHROMBIN TIME/[id number] 04:35:59* Test Item Value Reference Range Interpretation Comme nts PROTIME (BEAKER) (test code = 759) 24.1 seconds 9.9-12.7 H INR (BEAKER) (test code = 370) 2.17 See Comment RECOMMENDED COUMADIN/WARFARIN INR THERAPY RANGESSTANDARD DOSE: 2.0 - 3.0 Includes: PROPHYLAXIS for venous thrombosis, systemic embolization; TREATMENT for venous thrombosis and/or pulmonary embolus.HIGH RISK: Target INR is 2.5-3.5 for patients with mechanical heart valves.Insurance Office Manager ID -CBC W/PLT COUNT & AUTO [id number] 04:25:35* Test Item Value Reference Range Interpretation Comme nts WHITE BLOOD CELL COUNT (BEAK ER) (test code = 775) 11.2 K/ L 3.5-10.5 H RED BLOOD CELL COUNT (BEAKER ) (test code = 761) 3.01 M/ L 3.93-5.22 L HEMOGLOBIN (BEAKER) (test co de = 410) 11.0 GM/DL 11.2-15.7 L HEMATOCRIT (BEAKER) (test co de = 411) 32.3 % 34.1-44.9 L MEAN CORPUSCULAR VOLUME (LUCAS KER) (test code = 753) 107 fL 79-95 H MEAN CORPUSCULAR HEMOGLOBIN (BEAKER) (test code = 751) 36.5 pg 25.6-32.2 H MEAN CORPUSCULAR HEMOGLOBIN CONC (BEAKER) (test code = 752) 34.1 GM/DL 32.2-35.5 RED CELL DISTRIBUTION WIDTH (BEAKER) (test code = 412) 17.5 % 11.7-14.4 H PLATELET COUNT (BEAKER) (tory t code = 756) 151 K/CU MM 150-450 MEAN PLATELET VOLUME (BEAKER ) (test code = 754) 9.9 fL 9.4-12.3 NUCLEATED RED BLOOD CELLS (BEAKER) (test code = 413) 0 /100 WBC 0-0 NEUTROPHILS RELATIVE PERCENT (BEAKER) (test code = 429) 78 % LYMPHOCYTES RELATIVE PERCENT (BEAKER) (test code = 430) 9 % MONOCYTES RELATIVE PERCENT (BEAKER) (test code = 431) 10 % EOSINOPHILS RELATIVE PERCENT (BEAKER) (test code = 432) 2 % BASOPHILS RELATIVE PERCENT (BEAKER) (test code = 437) 1 % NEUTROPHILS ABSOLUTE COUNT (BEAKER) (test code = 670) 8.73 K/ L 1.56-6.13 H LYMPHOCYTES ABSOLUTE COUNT (BEAKER) (test code = 414) 1.04 K/ L 1.18-3.74 L MONOCYTES ABSOLUTE COUNT (BE TACOS) (test code = 415) 1.10 K/ L 0.24-0.36 H EOSINOPHILS ABSOLUTE COUNT (BEAKER) (test code = 416) 0.17 K/ L 0.04-0.36 BASOPHILS ABSOLUTE COUNT (BE TACOS) (test code = 417) 0.06 K/ L 0.01-0.08 IMMATURE GRANULOCYTES-RELATI VE PERCENT (BEAKER) (test code = 2801) 1.00 % 0.00-1.00 US ABDOMEN [id number] 22:49:28 [facility] : 1970 Sex: FTECHNIQUE: Grayscale ultrasound of the right abdomen.INDICATION: ABDOMINAL PAINABNORMAL LAB.COMPARISON: Correlation with CT 12/08/2024.FINDINGS:MIDLINE VASCULATURE: The visualized inferior vena cava is unremarkable.The maximum visualized aortic diameter is 2.2 cm.LIVER: Nodular liver contour. No focal lesions. Diffuse increasedhepatic echotexture compatible with fatty infiltration. Hepatomegaly.The main portal vein is patent and measures 1.2 cm in diameter.Hepatofugal flow is noted.BILIARY:Gallbladder: Prior cholecystectomy.Common bile duct measures 1.0 cm, dilated. No intrahepatic biliaryductal dilatation.PANCREAS: Incompletely visualized due to overlying bowel gas.PERITONEUM: Small volume perihepatic ascites.RIGHT KIDNEY: Right kidney measures 10.7 x 5.4 x 5.1 cm.. Nohydronephrosis. No sonographically evident solid mass lesion.IMPRESSION:1. Cirrhotic morphology of the liver with hepatofugal flow within themain portal vein. Fatty infiltration of the liver. No focal hepaticlesion.2. Small volume of perihepatic ascites.3. Prior cholecystectomy. Common bile duct measures 1 cm in caliberwhich may reflect postcholecystectomy state/reservoir effect.Correlation with laboratory values is suggested.Electronically Signed By: Jair Xavier12/18/2024 22:51 CDTWorkstation Name: [id number] 20:22:31* Test Item Value Reference Range Interpretation Comme nts LIPASE (BEAKER) (test code = 749) 16 U/L <=60 Specimen markedly ictericLACTIC ACID, [id number] 19:55:44* Test Item Value Reference Range Interpretation Comme nts LACTATE BLOOD VENOUS (2) (BEAKER) (test code = 2872) 1.06 mmol/L 0.50-2.00 Specimen moderat trish hemolyzed Specimen markedly [id number] 19:27:24* Test Item Value Reference Range Interpretation Comme nts PARTIAL THROMBOPLASTIN TIME (BEAKER) (test code = 760) 47.0 seconds 26.8-37.1 H Pre-analytical evaluation of the specimen suggests possible interference due to bilirubin (icterus). Results should be interpreted with caution. A redraw is recommended as clinically indicated. Insurance Office Manager ID -PROTHROMBIN TIME/[id number] 19:27:18* Test Item Value Reference Range Interpretation Comme nts PROTIME (BEAKER) (test code = 759) 22.3 seconds 9.9-12.7 H INR (BEAKER) (test code = 370) 2.00 See Comment RECOMMENDED COUMADIN/WARFARIN INR THERAPY RANGESSTANDARD DOSE: 2.0 - 3.0 Includes: PROPHYLAXIS for venous thrombosis, systemic embolization; TREATMENT for venous thrombosis and/or pulmonary embolus.HIGH RISK: Target INR is 2.5-3.5 for patients with mechanical heart valves.Insurance Office Manager ID -COMPREHENSIVE METABOLIC [id number] 19:13:55* Test Item Value Reference Range Interpretation Comme nts TOTAL PROTEIN (BEAKER) (test code = 770) 6.8 gm/dL 6.4-8.3 ALBUMIN (BEAKER) (test code = 1145) 2.5 g/dL 3.5-5.0 L ALKALINE PHOSPHATASE (BEAKER) (test code = 346) 122 U/L 40-150 BILIRUBIN TOTAL (BEAKER) (test code = 377) 24.9 mg/dL 0.2-1.2 H SODIUM (BEAKER) (test code = 381) 130 meq/L 136-145 L POTASSIUM (BEAKER) (test code = 379) 3.6 meq/L 3.4-5.1 CHLORIDE (BEAKER) (test code = 382) 97 meq/L 98-107 L CO2 (BEAKER) (test code = 355) 23 meq/L 22-29 BLOOD UREA NITROGEN (BEAKER) (test code = 354) 5 mg/dL 10-20 L CREATININE (BEAKER) (test code = 358) 0.73 mg/dL 0.57-1.11 GLUCOSE RANDOM (BEAKER) (test code = 652) 112 mg/dL 70-105 H CALCIUM (BEAKER) (test code = 697) 8.2 mg/dL 8.4-10.2 L AST (SGOT) (BEAKER) (test code = 353) 147 U/L 5-34 H ALT (SGPT) (BEAKER) (test code = 347) 36 U/L <55 EGFR (BEAKER) (test code = 1092) 97 mL/min/1.73 sq m Interpretation of eG FR values Stage Description Result G1 Normal or high >=90 G2 Mildly decreased 60-89 G3a Mildly to moderately 45-59 G3b Moderately to severely 30-44 G4 Severly decreased 15-29 G5 Kidney failure <15Reported eGFR is based on the CKD-EPI 2020 equation that does not use a race coefficientEstimated GFR is not as accurate as Creatinine Clearance in predicting glomerular filtration rate. Estimated GFR is not applicable for dialysis patients Specimen markedly ictericCBC W/PLT COUNT & AUTO [id number] 18:49:37 * Test Item Value Reference Range Interpretation Comme nts WHITE BLOOD CELL COUNT (BEAK ER) (test code = 775) 11.5 K/ L 3.5-10.5 H RED BLOOD CELL COUNT (BEAKER ) (test code = 761) 3.29 M/ L 3.93-5.22 L HEMOGLOBIN (BEAKER) (test co de = 410) 11.9 GM/DL 11.2-15.7 HEMATOCRIT (BEAKER) (test co de = 411) 35.5 % 34.1-44.9 MEAN CORPUSCULAR VOLUME (LUCAS KER) (test code = 753) 108 fL 79-95 H MEAN CORPUSCULAR HEMOGLOBIN (BEAKER) (test code = 751) 36.2 pg 25.6-32.2 H MEAN CORPUSCULAR HEMOGLOBIN CONC (BEAKER) (test code = 752) 33.5 GM/DL 32.2-35.5 RED CELL DISTRIBUTION WIDTH (BEAKER) (test code = 412) 17.8 % 11.7-14.4 H PLATELET COUNT (BEAKER) (troy t code = 756) 158 K/CU MM 150-450 MEAN PLATELET VOLUME (BEAKER ) (test code = 754) 9.8 fL 9.4-12.3 NUCLEATED RED BLOOD CELLS (BEAKER) (test code = 413) 0 /100 WBC 0-0 NEUTROPHILS RELATIVE PERCENT (BEAKER) (test code = 429) 80 % LYMPHOCYTES RELATIVE PERCENT (BEAKER) (test code = 430) 8 % MONOCYTES RELATIVE PERCENT (BEAKER) (test code = 431) 10 % EOSINOPHILS RELATIVE PERCENT (BEAKER) (test code = 432) 1 % BASOPHILS RELATIVE PERCENT (BEAKER) (test code = 437) 0 % NEUTROPHILS ABSOLUTE COUNT (BEAKER) (test code = 670) 9.18 K/ L 1.56-6.13 H LYMPHOCYTES ABSOLUTE COUNT (BEAKER) (test code = 414) 0.92 K/ L 1.18-3.74 L MONOCYTES ABSOLUTE COUNT (BE TACOS) (test code = 415) 1.11 K/ L 0.24-0.36 H EOSINOPHILS ABSOLUTE COUNT (BEAKER) (test code = 416) 0.10 K/ L 0.04-0.36 BASOPHILS ABSOLUTE COUNT (BE TACOS) (test code = 417) 0.05 K/ L 0.01-0.08 IMMATURE GRANULOCYTES-RELATI VE PERCENT (BEAKER) (test code = 2801) 0.90 % 0.00-1.00 HEPATIC FUNCTION [id number] 10:15:36* Test Item Value Reference Range Interpretation Comme nts TOTAL PROTEIN (BEAKER) (test code = 770) 6.7 gm/dL 6.4-8.3 ALBUMIN (BEAKER) (test code = 1145) 2.4 g/dL 3.5-5.0 L BILIRUBIN TOTAL (BEAKER) (te st code = 377) 24.6 mg/dL 0.2-1.2 H BILIRUBIN DIRECT (BEAKER) (t est code = 706) 14.7 mg/dL 0.1-0.5 H ALKALINE PHOSPHATASE (BEAKER ) (test code = 346) 111 U/L 40-150 AST (SGOT) (BEAKER) (test co de = 353) 147 U/L 5-34 H ALT (SGPT) (BEAKER) (test co de = 347) 36 U/L <55 Specimen markedly ictericPROTHROMBIN [id number] 10:10:50* Test Item Value Reference Range Interpretation Comme nts PROTIME (BEAKER) (test code = 759) 22.5 seconds 9.9-12.7 H INR (BEAKER) (test code = 370) 2.02 See Comment RECOMMENDED COUMADIN/WARFARIN INR THERAPY RANGESSTANDARD DOSE: 2.0 - 3.0 Includes: PROPHYLAXIS for venous thrombosis, systemic embolization; TREATMENT for venous thrombosis and/or pulmonary embolus.HIGH RISK: Target INR is 2.5-3.5 for patients with mechanical heart valves.Insurance Office Manager ID -CBC W/PLT COUNT & AUTO [id number] 09:53:38* Test Item Value Reference Range Interpretation Comme nts WHITE BLOOD CELL COUNT (BEAK ER) (test code = 775) 10.0 K/ L 3.5-10.5 RED BLOOD CELL COUNT (BEAKER ) (test code = 761) 3.39 M/ L 3.93-5.22 L HEMOGLOBIN (BEAKER) (test co de = 410) 12.4 GM/DL 11.2-15.7 HEMATOCRIT (BEAKER) (test co de = 411) 36.7 % 34.1-44.9 MEAN CORPUSCULAR VOLUME (LUCAS KER) (test code = 753) 108 fL 79-95 H MEAN CORPUSCULAR HEMOGLOBIN (BEAKER) (test code = 751) 36.6 pg 25.6-32.2 H MEAN CORPUSCULAR HEMOGLOBIN CONC (BEAKER) (test code = 752) 33.8 GM/DL 32.2-35.5 RED CELL DISTRIBUTION WIDTH (BEAKER) (test code = 412) 18.1 % 11.7-14.4 H PLATELET COUNT (BEAKER) (troy t code = 756) 158 K/CU MM 150-450 MEAN PLATELET VOLUME (BEAKER ) (test code = 754) 9.3 fL 9.4-12.3 L NUCLEATED RED BLOOD CELLS (BEAKER) (test code = 413) 0 /100 WBC 0-0 NEUTROPHILS RELATIVE PERCENT (BEAKER) (test code = 429) 81 % LYMPHOCYTES RELATIVE PERCENT (BEAKER) (test code = 430) 7 % MONOCYTES RELATIVE PERCENT (BEAKER) (test code = 431) 10 % EOSINOPHILS RELATIVE PERCENT (BEAKER) (test code = 432) 1 % BASOPHILS RELATIVE PERCENT (BEAKER) (test code = 437) 1 % NEUTROPHILS ABSOLUTE COUNT (BEAKER) (test code = 670) 8.06 K/ L 1.56-6.13 H LYMPHOCYTES ABSOLUTE COUNT (BEAKER) (test code = 414) 0.74 K/ L 1.18-3.74 L MONOCYTES ABSOLUTE COUNT (BE TACOS) (test code = 415) 0.95 K/ L 0.24-0.36 H EOSINOPHILS ABSOLUTE COUNT (BEAKER) (test code = 416) 0.08 K/ L 0.04-0.36 BASOPHILS ABSOLUTE COUNT (BE TACOS) (test code = 417) 0.06 K/ L 0.01-0.08 IMMATURE GRANULOCYTES-RELATI VE PERCENT (BEAKER) (test code = 2801) 0.70 % 0.00-1.00 Body fluid culture + gram [id number] 08:03:27* Test Item Value Reference Range Interpretation Comme nts Result (test code = 6463-4) No growth Lab Interpretation (test cod e = 78100-1) [facility] [id number] 08:03:27* Test Item Value Reference Range Interpretation Comme nts CULTURE (BEAKER) (test code = 1095) No growth BRISSA TITER AND [id number] 15:13:59* Test Item Value Reference Range Interpretation Comme nts BRISSA TITER (BEAKER) (test code = 1541) >=:2560 BRISSA PATTERN (BEAKER) (test code = 1781) Cytoplasmic/Anti-mi tochondrial antibodies - see comment Cytoplasmic staining is present suggestive of Anti-mitochondrial antibodies. If clinically indicated, recommend testing for Anti-mitochondrial antibodies. ANTI-NUCLEAR ANTIBODY (BRISSA)[id number] 15:13:43* Test Item Value Reference Range Interpretation Comme nts ANTI-NUCLEAR ANTIBODY (BRISSA) (BEAKER) (test code = 418) Negative Negative Test performed by IFA method.US [id number] 22:29:23PROCEDURE: Ultrasound-guided paracentesis Procedural PersonnelAttending physician(s): Alejo Cordoba MDAdvanced practice provider(s): FAITH Valentino Pre-procedure diagnosis: AscitesPost-procedure diagnosis: UnchangedIndication: Ascites with pain or pressure symptomsAdditional clinical history: None Complications: No immediate complications.[facility]US [id number] 22:29:23[facility]Name[facility] : 1970 Sex: F PROCEDURE: Ultrasound-guided paracentesisProcedural PersonnelAttending physician(s): Alejo Cordoba MDAdvyaneli practice provider(s): Cristóbal Valentino-procedure diagnosis: AscitesPost-procedure diagnosis: UnchangedIndication: Ascites with pain or pressure symptomsAdditional clinical history: NoneComplications: No immediate complications.IMPRESSION:Ultrasound- guided paracentesis with drainage of 550 mL of clear yellowfluid.Plan: Resume care by clinical team. PROCEDURE SUMMARY:- Limited abdominal ultrasound- Ultrasound-guided paracentesis (CPT 60683)- Additional procedure(s): NonePROCEDURE DETAILS:Pre-procedureConsent: Informed consent for the procedure including risks, benefitsand alternatives was obtained and time-out was performed prior to theprocedure.Preparation: The site was prepared and draped using maximal sterilebarrier technique including cutaneous antisepsis.Anesthesia/sedationNoneInitial abdominalultrasoundInitial abdominal ultrasound was performed.Findings: Large ascites. A safe window for paracentesis was identified.ParacentesisLocal anesthesia was administered. The peritoneal cavity was accessed atan appropriate site marked by ultrasound and fluid return confirmedposition. Ascites was drained. The catheter was then removed, and asterile bandage was applied.Catheter placed: 5F one-step catheter Post-drainage ultrasound: Not performedAdditional DetailsAdditional description of procedure: NoneEquipment details: NoneSpecimens removed: Abdominal fluidEstimated blood loss (mL): Minimal (<10cc)Standardized report: [email or web address] physician(s): Alejo Lee attest that I supervised the procedure and was immediately available.I reviewed the stored images and agree with the report as written.Electronically Signed By: Alejo [place]12/13/2024 22:31 CDTWorkstation Name: [id number] METABOLIC [id number] 05:45:41* Test Item Value Reference Range Interpretation Comme nts SODIUM (BEAKER) (test code = 381) 132 meq/L 136-145 L POTASSIUM (BEAKER) (test code = 379) 4.0 meq/L 3.4-5.1 CHLORIDE (BEAKER) (test code = 382) 102 meq/L 98-107 CO2 (BEAKER) (test code = 355) 24 meq/L 22-29 BLOOD UREA NITROGEN (BEAKER) (test code = 354) 4 mg/dL 10-20 L CREATININE (BEAKER) (test code = 358) 0.56 mg/dL 0.57-1.11 L GLUCOSE RANDOM (BEAKER) (test code = 652) 104 mg/dL 70-105 CALCIUM (BEAKER) (test code = 697) 7.8 mg/dL 8.4-10.2 L EGFR (BEAKER) (test code = 1092) 108 mL/min/1.73 sq m Interpretation of eG FR values Stage Description Result G1 Normal or high >=90 G2 Mildly decreased 60-89 G3a Mildly to moderately 45-59 G3b Moderately to severely 30-44 G4 Severly decreased 15-29 G5 Kidney failure <15Reported eGFR is based on the CKD-EPI 202 equation that does not use a race coefficientEstimated GFR is not as accurate as Creatinine Clearance in predicting glomerular filtration rate. Estimated GFR is not applicable for dialysis patients Specimen markedly ictericHEPATIC FUNCTION [id number] 05:45:30* Test Item Value Reference Range Interpretation Comme nts TOTAL PROTEIN (BEAKER) (test code = 770) 5.9 gm/dL 6.4-8.3 L ALBUMIN (BEAKER) (test code = 1145) 2.4 g/dL 3.5-5.0 L BILIRUBIN TOTAL (BEAKER) (te st code = 377) 15.1 mg/dL 0.2-1.2 H BILIRUBIN DIRECT (BEAKER) (t est code = 706) 10.3 mg/dL 0.1-0.5 H ALKALINE PHOSPHATASE (BEAKER ) (test code = 346) 111 U/L 40-150 AST (SGOT) (BEAKER) (test co de = 353) 142 U/L 5-34 H ALT (SGPT) (BEAKER) (test co de = 347) 37 U/L <55 Specimen markedly ictericPROTHROMBIN [id number] 05:24:23* Test Item Value Reference Range Interpretation Comme nts PROTIME (BEAKER) (test code = 759) 23.9 seconds 9.9-12.7 H INR (BEAKER) (test code = 370) 2.15 See Comment RECOMMENDED COUMADIN/WARFARIN INR THERAPY RANGESSTANDARD DOSE: 2.0 - 3.0 Includes: PROPHYLAXIS for venous thrombosis, systemic embolization; TREATMENT for venous thrombosis and/or pulmonary embolus.HIGH RISK: Target INR is 2.5-3.5 for patients with mechanical heart valves.Insurance Office Manager ID -CBC (HEMOGRAM ONLY) 2024-12-13 05:09:10* Test Item Value Reference Range Interpretation Comme nts WHITE BLOOD CELL COUNT (BEAK ER) (test code = 775) 7.8 K/ L 3.5-10.5 RED BLOOD CELL COUNT (BEAKER ) (test code = 761) 3.01 M/ L 3.93-5.22 L HEMOGLOBIN (BEAKER) (test co de = 410) 10.9 GM/DL 11.2-15.7 L HEMATOCRIT (BEAKER) (test co de = 411) 32.0 % 34.1-44.9 L MEAN CORPUSCULAR VOLUME (LUCAS KER) (test code = 753) 106 fL 79-95 H MEAN CORPUSCULAR HEMOGLOBIN (BEAKER) (test code = 751) 36.2 pg 25.6-32.2 H MEAN CORPUSCULAR HEMOGLOBIN CONC (BEAKER) (test code = 752) 34.1 GM/DL 32.2-35.5 RED CELL DISTRIBUTION WIDTH (BEAKER) (test code = 412) 19.6 % 11.7-14.4 H PLATELET COUNT (BEAKER) (troy t code = 756) 175 K/CU MM 150-450 MEAN PLATELET VOLUME (BEAKER ) (test code = 754) 9.9 fL 9.4-12.3 NUCLEATED RED BLOOD CELLS (BEAKER) (test code = 413) 0 /100 WBC 0-0 Body fluid cell count with [id number] 21:37:35* Test Item Value Reference Range Interpretation Comme nts Appearance (test code = 9335-1) Clear Clear Color (test code = 6824-7) Yellow Colorless, Straw A RBCs (test code = 75862-6) 19 See_Comment H [Automated message] The system which generated this result transmitted reference range: <=1 /cu mm. The reference range was not used to interpret this result as normal/abnormal. TNC Count (test code = 1442) 281 See_Comment H [Automated message] The system which generated this result transmitted reference range: <=5 /cu mm. The reference range was not used to interpret this result as normal/abnormal. Adjusted WBC Count (test code = 70383-2) 281 See_Comment H [Automated message] The system which generated this result transmitted reference range: <=5 /cu mm. The reference range was not used to interpret this result as normal/abnormal. Adjusted lining cells/Others (test code = 47896-7) 0 See_Comment [Automated message] The system which generated this result transmitted reference range: <=1 /cu mm. The reference range was not used to interpret this result as normal/abnormal. % Segs (test code = 62374-6) 1 % % Lymphs (test code = 09174-9) 63 % % Monos (test code = 87811-4) 36 % % Eos (test code = 72993-2) 0 % % Baso (test code = 18132-9) 0 % Container Body Fluid (test code = 2873) Sterile Vial Lab Interpretation (test code = 45799-7) Abnormal [facility] WITH [id number] 21:37:35* Test Item Value Reference Range Interpretation Comme nts APPEARANCE FLUID (BEAKER) (t est code = 510) Clear Clear COLOR FLUID (BEAKER) (test c ode = 511) Yellow Colorless, Straw A RBC FLUID (BEAKER) (test cod e = 513) 19 /cu mm <=1 H TOTAL NUCLEATED CELL COUNT (BEAKER) (test code = 1442) 281 /cu mm <=5 H ADJUSTED WBC FLUID (BEAKER) (test code = 1691) 281 /cu mm <=5 H LINING CELLS/OTHERS, CALCULA MARY (BEAKER) (test code = 1590) 0 /cu mm <=1 NEUTROPHILS FLUID (BEAKER) (test code = 1656) 1 % LYMPHS FLUID (BEAKER) (test code = 488) 63 % MONO/MACROPHAGE FLUID (BEAKE R) (test code = 489) 36 % EOSINOPHILS FLUID (BEAKER) (test code = 491) 0 % BASO FLUID (BEAKER) (test co de = 492) 0 % CONTAINER BODY FLUID (BEAKER ) (test code = 2873) Sterile Vial Albumin, body [id number] 17:35:48* Test Item Value Reference Range Interpretation Comme nts Albumin, Fluid (test code = 1747-5) 0.5 gm/dL BLANCA (test code = BLANCA) This test has been modified from the water taxi boat mate's instructions and its performance characteristics were determined by [facility]. The laboratory is regulated under CLIA as qualified to perform high-complexity testing. This test has not been cleared or approved by the U.S. Food and Drug Administration. The reference intervals and other method performance specifications are unavailable for this test. It is recommended to interpret body fluid concentrations in comparison with the corresponding serum or plasma concentrations. [facility] [id number] 17:35:48* Test Item Value Reference Range Interpretation Comme nts ALBUMIN FLUID (BEAKER) (test code = 501) 0.5 gm/dL This test has been modified from the water taxi boat mate's instructions and its performance characteristics were determined by [facility]. The laboratory is regulated under CLIA as qualified to perform high-complexity testing. This test has not been cleared or approved by the U.S. Food and Drug Administration. The reference intervals and other method performance specifications are unavailable for this test. It is recommended to interpret body fluid concentrations in comparison with the corresponding serum or plasma concentrations.MR abdomen without & with IV [id number] 07:57:23CLINICAL INFORMATION: Unlisted Reason for Exam. TECHNIQUE: Multiple, multiaxial, multisequence MR images of the abdomenwere obtained before and after injection of IV contrast. COMPARISON: CT 12/08/2024FINDINGS:Included lower chest: Normal. Liver and hepatic vasculature: Liver shows cirrhotic morphology withnodular outline. Areas of confluent fibrosis are seen throughout theliver.Severe diffuse hepatic steatosis shown by loss of signal on opposedphase images. No suspicious focal hepatic lesion isseen. Hepatic artery, portal vein, hepatic veins and their branches andtributaries are patent. SMV and splenic vein are patent. Main portalvein measures 1.3 cm. No portosystemic collaterals or esophagealvarices. Biliary: Cholecystectomy. No intra or extrahepatic biliary dilatation. Pancreas: Normal. Spleen: Splenomegaly, 16.7 cm. Adrenal glands: Normal. Kidneys: Normal. Bowel: Normal. Peritoneum:Small volume ascites. Lymph node regions: Normal. Blood vessels: Normal. Body wall: Normal. Skeletal structures: Normal.[facility] HospitalMR [facility] WITH & WITHOUT IV [id number] 07:57:23 [facility] : 1970 Sex: FCLINICAL INFORMATION: Unlisted Reason for Exam.TECHNIQUE: Multiple, multiaxial, mult isequence MR images of the abdomenwere obtained before and after injection of IV contrast.COMPARISON: CT 12/08/2024FINDINGS:Included lower chest: Normal.Liver and hepatic vasculature: Liver shows cirrhotic morphology withnodular outline. Areas of confluent fibrosis are seen throughout theliver.Severediffuse hepatic steatosis shown by loss of signal on opposedphase images. No suspicious focal hepatic lesion is seen.Hepatic artery, portal vein, hepatic veins and their branches andtributaries are patent. SMV and splenic vein are patent. Main portalvein measures 1.3 cm. No portosystemic collaterals or esophagealvarices.Biliary: Cholecystectomy. No intra or extrahepatic biliary dilatation.Pancreas: Normal.Spleen: Splenomegaly, 16.7 cm.Adrenal glands: Normal.Kidneys: Normal.Bowel: Normal.Peritoneum: Small volume ascites.Lymph node regions: Normal.Blood vessels: Normal.Body wall: Normal.Skeletal structures: Normal.IMPRESSION:1. Cirrhosis. Severe hepatic steatosis. Extensive focal confluentfibrosis.2. Stigmata of portal hypertension - splenomegaly, ascites. No varicesor portosystemic collaterals.3. No suspicious focal hepatic lesion.Electronically Signed By: Jonathan Shine12/12/2024 07:59 CDTWorkstation Name: [id number] METABOLIC [id number] 05:55:22* Test Item Value Reference Range Interpretation Comme nts TOTAL PROTEIN (BEAKER) (test code = 770) 5.9 gm/dL 6.4-8.3 L ALBUMIN (BEAKER) (test code = 1145) 2.1 g/dL 3.5-5.0 L ALKALINE PHOSPHATASE (BEAKER) (test code = 346) 109 U/L 40-150 BILIRUBIN TOTAL (BEAKER) (test code = 377) 16.6 mg/dL 0.2-1.2 H SODIUM (BEAKER) (test code = 381) 133 meq/L 136-145 L POTASSIUM (BEAKER) (test code = 379) 4.4 meq/L 3.4-5.1 CHLORIDE (BEAKER) (test code = 382) 104 meq/L 98-107 CO2 (BEAKER) (test code = 355) 25 meq/L 22-29 BLOOD UREA NITROGEN (BEAKER) (test code = 354) 3 mg/dL 10-20 L CREATININE (BEAKER) (test code = 358) 0.54 mg/dL 0.57-1.11 L GLUCOSE RANDOM (BEAKER) (test code = 652) 95 mg/dL 70-105 CALCIUM (BEAKER) (test code = 697) 7.9 mg/dL 8.4-10.2 L AST (SGOT) (BEAKER) (test code = 353) 146 U/L 5-34 H ALT (SGPT) (BEAKER) (test code = 347) 38 U/L <55 EGFR (BEAKER) (test code = 1092) 109 mL/min/1.73 sq m Interpretation of eG FR values Stage Description Result G1 Normal or high >=90 G2 Mildly decreased 60-89 G3a Mildly to moderately 45-59 G3b Moderately to severely 30-44 G4 Severly decreased 15-29 G5 Kidney failure <15Reported eGFR is based on the CKD-EPI 2020 equation that does not use a race coefficientEstimated GFR is not as accurate as Creatinine Clearance in predicting glomerular filtration rate. Estimated GFR is not applicable for dialysis patients Specimen markedly ictericPROTHROMBIN TIME/[id number] 05:32:10* Test Item Value Reference Range Interpretation Comme nts PROTIME (BEAKER) (test code = 759) 26.0 seconds 9.9-12.7 H INR (BEAKER) (test code = 370) 2.34 See Comment RECOMMENDED COUMADIN/WARFARIN INR THERAPY RANGESSTANDARD DOSE: 2.0 - 3.0 Includes: PROPHYLAXIS for venous thrombosis, systemic embolization; TREATMENT for venous thrombosis and/or pulmonary embolus.HIGH RISK: Target INR is 2.5-3.5 for patients with mechanical heart valves.Insurance Office Manager ID -CBC (HEMOGRAM ONLY) 2024-12-12 05:16:54* Test Item Value Reference Range Interpretation Comme nts WHITE BLOOD CELL COUNT (BEAK ER) (test code = 775) 8.2 K/ L 3.5-10.5 RED BLOOD CELL COUNT (BEAKER ) (test code = 761) 3.09 M/ L 3.93-5.22 L HEMOGLOBIN (BEAKER) (test co de = 410) 11.1 GM/DL 11.2-15.7 L HEMATOCRIT (BEAKER) (test co de = 411) 33.1 % 34.1-44.9 L MEAN CORPUSCULAR VOLUME (LUCAS KER) (test code = 753) 107 fL 79-95 H MEAN CORPUSCULAR HEMOGLOBIN (BEAKER) (test code = 751) 35.9 pg 25.6-32.2 H MEAN CORPUSCULAR HEMOGLOBIN CONC (BEAKER) (test code = 752) 33.5 GM/DL 32.2-35.5 RED CELL DISTRIBUTION WIDTH (BEAKER) (test code = 412) 19.3 % 11.7-14.4 H PLATELET COUNT (BEAKER) (troy t code = 756) 192 K/CU MM 150-450 MEAN PLATELET VOLUME (BEAKER ) (test code = 754) 10.1 fL 9.4-12.3 NUCLEATED RED BLOOD CELLS (BEAKER) (test code = 413) 0 /100 WBC 0-0 [id number] 05:34:03* Test Item Value Reference Range Interpretation Comme nts FERRITIN (BEAKER) (test code = 361) 1108.06 ng/mL 4.63-204.00 H IRON, TIBC, % SAT. (WITHOUT FERRITIN)2024-12-11 05:33:52* Test Item Value Reference Range Interpretation Comme nts IRON (BEAKER) (test code = 547) 62.0 ug/dL 50.0-170.0 TOTAL IRON BINDING CAPACITY (BEAKER) (test code = 769) 46 ug/dL 250-450 L IRON % SATURATION (2) (BEAKE R) (test code = 2590) 135 % 20-55 H PROTHROMBIN [id number] 05:28:36* Test Item Value Reference Range Interpretation Comme nts PROTIME (BEAKER) (test code = 759) 24.9 seconds 9.9-12.7 H INR (BEAKER) (test code = 370) 2.24 See Comment RECOMMENDED COUMADIN/WARFARIN INR THERAPY RANGESSTANDARD DOSE: 2.0 - 3.0 Includes: PROPHYLAXIS for venous thrombosis, systemic embolization; TREATMENT for venous thrombosis and/or pulmonary embolus.HIGH RISK: Target INR is 2.5-3.5 for patients with mechanical heart valves.Insurance Office Manager ID -COMPREHENSIVE METABOLIC [id number] 05:15:06* Test Item Value Reference Range Interpretation Comme nts TOTAL PROTEIN (BEAKER) (test code = 770) 6.0 gm/dL 6.4-8.3 L ALBUMIN (BEAKER) (test code = 1145) 2.1 g/dL 3.5-5.0 L ALKALINE PHOSPHATASE (BEAKER) (test code = 346) 122 U/L 40-150 BILIRUBIN TOTAL (BEAKER) (test code = 377) 16.2 mg/dL 0.2-1.2 H SODIUM (BEAKER) (test code = 381) 136 meq/L 136-145 POTASSIUM (BEAKER) (test code = 379) 4.1 meq/L 3.4-5.1 CHLORIDE (BEAKER) (test code = 382) 103 meq/L 98-107 CO2 (BEAKER) (test code = 355) 24 meq/L 22-29 BLOOD UREA NITROGEN (BEAKER) (test code = 354) 3 mg/dL 10-20 L CREATININE (BEAKER) (test code = 358) 0.58 mg/dL 0.57-1.11 GLUCOSE RANDOM (BEAKER) (test code = 652) 103 mg/dL 70-105 CALCIUM (BEAKER) (test code = 697) 8.1 mg/dL 8.4-10.2 L AST (SGOT) (BEAKER) (test code = 353) 142 U/L 5-34 H ALT (SGPT) (BEAKER) (test code = 347) 38 U/L <55 EGFR (BEAKER) (test code = 1092) 107 mL/min/1.73 sq m Interpretation of eG FR values Stage Description Result G1 Normal or high >=90 G2 Mildly decreased 60-89 G3a Mildly to moderately 45-59 G3b Moderately to severely 30-44 G4 Severly decreased 15-29 G5 Kidney failure <15Reported eGFR is based on the CKD-EPI 2020 equation that does not use a race coefficientEstimated GFR is not as accurate as Creatinine Clearance in predicting glomerular filtration rate. Estimated GFR is not applicable for dialysis patients Specimen markedly ictericBILIRUBIN, [id number] 05:15:06* Test Item Value Reference Range Interpretation Comme nts BILIRUBIN DIRECT (BEAKER) (t est code = 706) 11.5 mg/dL 0.1-0.5 H CBC (HEMOGRAM ONLY)2024-12-11 04:50:36* Test Item Value Reference Range Interpretation Comme nts WHITE BLOOD CELL COUNT (BEAK ER) (test code = 775) 8.4 K/ L 3.5-10.5 RED BLOOD CELL COUNT (BEAKER ) (test code = 761) 2.97 M/ L 3.93-5.22 L HEMOGLOBIN (BEAKER) (test co de = 410) 10.8 GM/DL 11.2-15.7 L HEMATOCRIT (BEAKER) (test co de = 411) 31.2 % 34.1-44.9 L MEAN CORPUSCULAR VOLUME (LUCAS KER) (test code = 753) 105 fL 79-95 H MEAN CORPUSCULAR HEMOGLOBIN (BEAKER) (test code = 751) 36.4 pg 25.6-32.2 H MEAN CORPUSCULAR HEMOGLOBIN CONC (BEAKER) (test code = 752) 34.6 GM/DL 32.2-35.5 RED CELL DISTRIBUTION WIDTH (BEAKER) (test code = 412) 18.8 % 11.7-14.4 H PLATELET COUNT (BEAKER) (troy t code = 756) 200 K/CU MM 150-450 MEAN PLATELET VOLUME (BEAKER ) (test code = 754) 10.3 fL 9.4-12.3 NUCLEATED RED BLOOD CELLS (BEAKER) (test code = 413) 0 /100 WBC 0-0 Rapid drug screen, [id number] 11:56:10* Test Item Value Reference Range Interpretation Comme nts Barbiturate Screen (test code = 46839-6) Negative Negative Benzodiazepine Screen (test code = 28118-3) Negative Negative Cocaine (Metab.) Screen (test code = 35013-3) Negative Negative Methadone Screen (test code = 25242-8) Negative Negative Opiate Screen (test code = 41719-0) Positive Negative A Cannabinoid Screen (test code = 14847-8) Negative Negative Amph/Methamph Screen (test code = 61747-2) Negative Negative Phencyclidine Screen (test code = 99386-8) Negative Negative pH, UA (test code = 5803-2) 6.5 5.0-8.0 BLANCA (test code = BLANCA) DRUG CUTOFF CONC.Cocaine 300 ng/mL Cannabinoid 50 ng/mLBenzodiazepine 200 ng/mLBarbiturate 200 ng/mLPhencyclidine 25 ng/mLOpiate 300 ng/mLMethadone 300 ng/mLAmphetamine/ 1000 ng/mL Methamphetamine This assay provides an unconfirmed qualitative test result for the clinical management of patients in emergency situations. Chain of custody not maintained. Some mkoa-pxf-ykfnvao medications, as well as adulterants, may cause inaccurate results. Clinical correlation should be applied. A more comprehensive drug screen or confirmation of a detected drug may be performed upon request.Insurance Office Manager ID - [auto] Lab Interpretation (test code = 23699-9) Abnormal [facility] Hospital[facility]ID [facility] S[facility]EN, [id number] 11:56:10* Test Item Value Reference Range Interpretation Comme nts BARBITURATE URINE (BEAKER) ( test code = 725) Negative Negative BENZODIAZEPINE SCREEN URINE (BEAKER) (test code = 726) Negative Negative COCAINE (METAB.) SCREEN (LUCAS KER) (test code = 1164) Negative Negative METHADONE SCREEN (BEAKER) (t est code = 1436) Negative Negative OPIATE SCREEN URINE (BEAKER) (test code = 734) Positive Negative A CANNABINOID SCREEN URINE (BE TACOS) (test code = 727) Negative Negative AMPH/METHAMPH SCREEN (BEAKER ) (test code = 1438) Negative Negative PHENCYCLIDINE SCREEN URINE ( BEAKER) (test code = 608) Negative Negative PH UA (BEAKER) (test code = 467) 6.5 5.0-8.0 DRUG CUTOFF CONC.Cocaine 300 ng/mL Cannabinoid 50 ng/mLBenzodiazepine 200 ng/mLBarbiturate 200 ng/mLPhencyclidine 25 ng/mLOpiate 300 ng/mLMethadone 300 ng/mLAmphetamine/ 1000 ng/mL MethamphetamineThis assay provides an unconfirmed qualitative test result for the clinical management of patients in emergency situations. Chain of custody not maintained. Some mjvy-lry-upootyd medications, as well asadulterants, may cause inaccurate results. Clinical correlation should be applied. A more comprehensive drug screen or confirmation of a detected drug may be performed upon request.Insurance Office Manager ID - [auto][id number] 11:23:49* Test Item Value Reference Range Interpretation Comme nts HAPTOGLOBIN (BEAKER) (test c ode = 366) < mg/dL 35-250 L LACTATE DEHYDROGENASE (LDH)2024-12-10 10:21:31* Test Item Value Reference Range Interpretation Comme nts LACTATE DEHYDROGENASE (BEAKE R) (test code = 635) 259 U/L 125-220 H BILIRUBIN, [id number] 10:16:05* Test Item Value Reference Range Interpretation Comme nts BILIRUBIN, INDIRECT (BEAKER) (test code = 1554) 6.3 mg/dL 0.0-1.1 H BILIRUBIN, [id number] 10:16:00* Test Item Value Reference Range Interpretation Comme nts BILIRUBIN DIRECT (BEAKER) (t est code = 706) 12.1 mg/dL 0.1-0.5 H Protein, random [id number] 09:05:50* Test Item Value Reference Range Interpretation Comme nts Protein, Urine (test code = 2888-6) 0-14 Lab Interpretation (test cod e = 82019-8) Normal [facility] [id number] 09:05:50* Test Item Value Reference Range Interpretation Comme nts PROTEIN, URINE (BEAKER) (troy t code = 1569) < mg/dL 0-14 Creatinine, random [id number] 09:03:54* Test Item Value Reference Range Interpretation Comme nts Creatinine, Ur (test code = 2161-8) 41 mg/dL BLANCA (test code = BLANCA) Reference Range: No Normals [facility] HospitalCREATININE, RANDOM [id number] 09:03:54* Test Item Value Reference Range Interpretation Comme nts CREATININE URINE (BEAKER) (t est code = 375) 41 mg/dL Reference Range: No NormalsT4, [id number] 08:01:57* Test Item Value Reference Range Interpretation Comme nts FREE T4 (BEAKER) (test code = 655) 1.14 ng/dL 0.70-1.48 [id number] 07:36:32* Test Item Value Reference Range Interpretation Comme nts PHOSPHORUS (BEAKER) (test co de = 604) 2.9 mg/dL 2.3-4.7 URIC [id number] 07:36:32* Test Item Value Reference Range Interpretation Comme nts URIC ACID (BEAKER) (test cod e = 773) 3.1 mg/dL 2.6-6.0 Specimen markedly ictericCOMPREHENSIVE METABOLIC [id number] 07:36:32* Test Item Value Reference Range Interpretation Comme nts TOTAL PROTEIN (BEAKER) (test code = 770) 6.2 gm/dL 6.4-8.3 L ALBUMIN (BEAKER) (test code = 1145) 2.4 g/dL 3.5-5.0 L ALKALINE PHOSPHATASE (BEAKER) (test code = 346) 120 U/L 40-150 BILIRUBIN TOTAL (BEAKER) (test code = 377) 18.4 mg/dL 0.2-1.2 H SODIUM (BEAKER) (test code = 381) 133 meq/L 136-145 L POTASSIUM (BEAKER) (test code = 379) 3.8 meq/L 3.4-5.1 CHLORIDE (BEAKER) (test code = 382) 101 meq/L 98-107 CO2 (BEAKER) (test code = 355) 26 meq/L 22-29 BLOOD UREA NITROGEN (BEAKER) (test code = 354) 3 mg/dL 10-20 L CREATININE (BEAKER) (test code = 358) 0.59 mg/dL 0.57-1.11 GLUCOSE RANDOM (BEAKER) (test code = 652) 116 mg/dL 70-105 H CALCIUM (BEAKER) (test code = 697) 8.3 mg/dL 8.4-10.2 L AST (SGOT) (BEAKER) (test code = 353) 138 U/L 5-34 H ALT (SGPT) (BEAKER) (test code = 347) 39 U/L <55 EGFR (BEAKER) (test code = 1092) 106 mL/min/1.73 sq m Interpretation of eG FR values Stage Description Result G1 Normal or high >=90 G2 Mildly decreased 60-89 G3a Mildly to moderately 45-59 G3b Moderately to severely 30-44 G4 Severly decreased 15-29 G5 Kidney failure <15Reported eGFR is based on the CKD-EPI 2020 equation that does not use a race coefficientEstimated GFR is not as accurate as Creatinine Clearance in predicting glomerular filtration rate. Estimated GFR is not applicable for dialysis patients Specimen markedly [id number] 07:36:31* Test Item Value Reference Range Interpretation Comme nts MAGNESIUM (BEAKER) (test cod e = 627) 2.1 mg/dL 1.6-2.6 TSH/FREE T4 IF [id number] 07:33:07* Test Item Value Reference Range Interpretation Comme nts THYROID STIMULATING HORMONE (BEAKER) (test code = 772) 7.352 uIU/mL 0.350-4.940 H CARCINOEMBRYONIC ANTIGEN (CEA)2024-12-10 07:31:44* Test Item Value Reference Range Interpretation Comme nts CARCINOEMBRYONIC ANTIGEN (BE TACOS) (test code = 685) 5.6 ng/mL 0.0-5.0 H PROTHROMBIN [id number] 06:53:09* Test Item Value Reference Range Interpretation Comme nts PROTIME (BEAKER) (test code = 759) 23.9 seconds 9.9-12.7 H INR (BEAKER) (test code = 370) 2.15 See Comment RECOMMENDED COUMADIN/WARFARIN INR THERAPY RANGESSTANDARD DOSE: 2.0 - 3.0 Includes: PROPHYLAXIS for venous thrombosis, systemic embolization; TREATMENT for venous thrombosis and/or pulmonary embolus.HIGH RISK: Target INR is 2.5-3.5 for patients with mechanical heart valves.Insurance Office Manager ID -CALCIUM, IONIZED 2024-12-10 06:24:28* Test Item Value Reference Range Interpretation Comme nts CALCIUM IONIZED (BEAKER) (te st code = 698) 1.10 mmol/L 1.12-1.27 L PH, BLOOD (BEAKER) (test cod e = 1810) 7.40 CBC W/PLT COUNT & AUTO [id number] 06:20:13* Test Item Value Reference Range Interpretation Comme nts WHITE BLOOD CELL COUNT (BEAK ER) (test code = 775) 9.3 K/ L 3.5-10.5 RED BLOOD CELL COUNT (BEAKER ) (test code = 761) 3.11 M/ L 3.93-5.22 L HEMOGLOBIN (BEAKER) (test co de = 410) 11.4 GM/DL 11.2-15.7 HEMATOCRIT (BEAKER) (test co de = 411) 32.7 % 34.1-44.9 L MEAN CORPUSCULAR VOLUME (LUCAS KER) (test code = 753) 105 fL 79-95 H MEAN CORPUSCULAR HEMOGLOBIN (BEAKER) (test code = 751) 36.7 pg 25.6-32.2 H MEAN CORPUSCULAR HEMOGLOBIN CONC (BEAKER) (test code = 752) 34.9 GM/DL 32.2-35.5 RED CELL DISTRIBUTION WIDTH (BEAKER) (test code = 412) 18.4 % 11.7-14.4 H PLATELET COUNT (BEAKER) (troy t code = 756) 199 K/CU MM 150-450 MEAN PLATELET VOLUME (BEAKER ) (test code = 754) 10.3 fL 9.4-12.3 NUCLEATED RED BLOOD CELLS (BEAKER) (test code = 413) 0 /100 WBC 0-0 NEUTROPHILS RELATIVE PERCENT (BEAKER) (test code = 429) 76 % LYMPHOCYTES RELATIVE PERCENT (BEAKER) (test code = 430) 11 % MONOCYTES RELATIVE PERCENT (BEAKER) (test code = 431) 8 % EOSINOPHILS RELATIVE PERCENT (BEAKER) (test code = 432) 2 % BASOPHILS RELATIVE PERCENT (BEAKER) (test code = 437) 1 % NEUTROPHILS ABSOLUTE COUNT (BEAKER) (test code = 670) 7.12 K/ L 1.56-6.13 H LYMPHOCYTES ABSOLUTE COUNT (BEAKER) (test code = 414) 1.04 K/ L 1.18-3.74 L MONOCYTES ABSOLUTE COUNT (BE TACOS) (test code = 415) 0.76 K/ L 0.24-0.36 H EOSINOPHILS ABSOLUTE COUNT (BEAKER) (test code = 416) 0.20 K/ L 0.04-0.36 BASOPHILS ABSOLUTE COUNT (BE TACOS) (test code = 417) 0.06 K/ L 0.01-0.08 IMMATURE GRANULOCYTES-RELATI VE PERCENT (BEAKER) (test code = 2801) 1.70 % 0.00-1.00 H Urinalysis w/[id number] 21:01:20* Test Item Value Reference Range Interpretation Comme nts Color, UA (test code = 5778-6) Dark Yellow Clarity, UA (test code = 5767-9) Hazy Specific Hathaway, UA (test code = 5811-5) 1.012 1.001-1.035 pH, UA (test code = 5803-2) 6.5 5.0-8.0 Protein, UA (test code = 10611-4) Negative Negative Glucose, UA (test code = 365) Negative Negative Ketones, UA (test code = 2514-8) Negative Negative Bilirubin, UA (test code = 57312-6) Positive Negative A Blood, UA (test code = 22156-3) Negative Negative Nitrite, UA (test code = 5802-4) Negative Negative Leukocytes, UA (test code = 5799-2) Negative Negative Urobilinogen, UA (test code = 74037-1) 2 0.2-1.0 H RBC, UA (test code = 06190-0) 0 See_Comment [Automated message] The system which generated this result transmitted reference range: /HPF. The reference range was not used to interpret this result as normal/abnormal. WBC, UA (test code = 5821-4) 6 See_Comment [Automated message] The system which generated this result transmitted reference range: /HPF. The reference range was not used to interpret this result as normal/abnormal. Bacteria, UA (test code = 70139-5) Rare Squam Epithel, UA (test code = 50168-0) 2 See_Comment [Automated message] The system which generated this result transmitted reference range: /HPF. The reference range was not used to interpret this result as normal/abnormal. Hyaline Casts, UA (test code = 05909-7) 2 See_Comment [Automated message] The system which generated this result transmitted reference range: /LPF. The reference range was not used to interpret this result as normal/abnormal. Specimen Source (test code = 2795) Urine, Clean Catch BLANCA (test code = BLANCA) Insurance Office Manager ID - [auto]Insurance Office Manager ID - tech Lab Interpretation (test code = 03955-3) [facility]normal [facility] [id number] 21:01:20* Test Item Value Reference Range Interpretation Comme nts COLOR (BEAKER) (test code = 470) Dark Yellow CLARITY (BEAKER) (test code = 469) Hazy SPECIFIC GRAVITY UA (BEAKER) (test code = 468) 1.012 1.001-1.035 PH UA (BEAKER) (test code = 467) 6.5 5.0-8.0 PROTEIN UA (BEAKER) (test code = 464) Negative Negative GLUCOSE UA (BEAKER) (test code = 365) Negative Negative KETONES UA (BEAKER) (test code = 371) Negative Negative BILIRUBIN UA (BEAKER) (test code = 462) Positive Negative A BLOOD UA (BEAKER) (test code = 461) Negative Negative NITRITE UA (BEAKER) (test code = 465) Negative Negative LEUKOCYTE ESTERASE UA (BEAKER) (test code = 466) Negative Negative UROBILINOGEN UA (BEAKER) (test code = 463) 2 0.2-1.0 H RBC UA (BEAKER) (test code = 519) 0 /HPF WBC UA (BEAKER) (test code = 520) 6 /HPF BACTERIA (BEAKER) (test code = 517) Rare SQUAMOUS EPITHELIAL (BEAKER) (test code = 516) 2 /HPF HYALINE CASTS (BEAKER) (test code = 514) 2 /LPF SOURCE(BEAKER) (test code = 2795) Urine, Clean Catch Insurance Office Manager ID - [auto]Insurance Office Manager ID - techOsmolality, [id number] 12:52:44* Test Item Value Reference Range Interpretation Comme nts Osmolality, Ur (test code = 2695-5) 190 See_Comment [Automated [email or web address]] The system which generated this result transmitted reference range: 50-1,200 mOsm/kg mOsm/kg. The reference range was not used to interpret this result as normal/abnormal. Lab Interpretation (test code = 89319-7) Normal [facility] HospitalOSMOLALITY, [id number] 12:52:44* Test Item Value Reference Range Interpretation Comme nts OSMOLALITY URINE (BEAKER) (test code = 614) 190 mOsm/kg See_Comment [Automated [email or web address]] The system which generated this result transmitted reference range: 50-1,200 mOsm/kg. The reference range was not used to interpret this result as normal/abnormal. CT chest with IV [id number] 12:45:28TECHNIQUE: CT of the chest, abdomen, and pelvis WITH intravenouscontrast and WITH oral contrast. Dose modulation, iterativereconstruction, and/or weight-based adjustment of the mA/kV was utilizedto reduce the radiation dose to as low as reasonably achievable. INDICATION: Abdominal pain, acute, nonlocalized, new jaundice andhepatic masses seen on OSH imaging COMPARISON: None FINDINGS: NECK: Normalthyroid. HEART AND MEDIASTINUM: Normal heart size. No pericardial effusion. Nosignificant coronary artery calcifications. Normal course and caliber ofthe thoracic aorta without significant atherosclerotic plaque. Thepulmonary trunk measures 2.7 cm. LUNGS AND AIRWAYS: No suspicious pulmonary nodule.A left lower lobenodule with ovoid morphology abuts the major fissure, likely a fissurallymph node.No mass. No focal consolidation. Bandlike opacities in thelower lobes most likely represent atelectasis. PLEURA: No significant effusion. No pneumothorax. LIVER: Cirrhotic liver morphology with surface nodularity and volumetricredistribution. There are diffuse regions of geographic hypoattenuationthroughout the liver which is predominantly perivascular in distributionwith intervening parenchymal bridges. There are penetrating vesselslocated within these regions of hypoattenuation and there is no frankevidence of mass effect. No discrete focal liver lesion. GALLBLADDER/BILIARY: Cholecystectomy. No biliary duct dilation. PANCREAS: No duct dilation or focal lesion. SPLEEN: Enlarged, measuring 16.2 cm. ADRENAL GLANDS: No adrenal nodule. KIDNEYS AND URETERS: No hydronephrosis, calculi, or suspicious mass. BLADDER: Partially opacified with contrast. REPRODUCTIVE ORGANS: Hysterectomy. BOWEL: Ascending colon mild circumferential wall thickening. Oralcontrast opacifies loops of small bowel in the low abdomen extending tothe mid ileum. No evidence of bowel obstruction. VESSELS: The portal venous system appears patent. The main portal veinmeasures 1.3 cm in diameter. No gardenia esophageal or gastric varices.Recanalized paraumbilical vein. Replaced right hepatic artery originatesfrom the superior mesenteric artery. Replaced left hepatic artery arisesfrom the left gastric artery. LYMPH NODES: Unremarkable. PERITONEUM/RETROPERITONEUM: Small volume ascites. No free air. BONES AND SOFT TISSUES: No suspicious bone lesion. Degenerative changesof the thoracolumbar spine. Facet arthrosis from L3 to S1.[facility] [id number] 12:45:28 [facility] : 1970 Sex: FTECHNIQUE: CT of the chest, abdomen, and pelvis WITH intravenouscontrast and WITH oral contrast. Dose modulation, iterativereconstruction, and/or weight-based adjustment of the mA/kV was utilizedto reduce the radiation dose to as low as reasonably achievable.INDICATION: Abdominal pain, acute, nonlocalized, new jaundice andhepatic masses seen on OSH imagingCOMPARISON: NoneFINDINGS:NECK: Normal thyroid.HEART AND MEDIASTINUM: Normal heart size. No pericardial effusion. Nosignificant coronary artery calcifications. Normal course and caliber ofthe thoracic aorta without significantatherosclerotic plaque. Thepulmonary trunk measures 2.7 cm.LUNGS AND AIRWAYS: No suspicious pulmonary nodule. A left lower lobenodule with ovoid morphology abuts the major fissure, likely a fissurallymph node. No mass. No focal consolidation. Bandlike opacities in thelower lobes most likely represent atelectasis.PLEURA: No significant effusion. No pneumothorax.LIVER: Cirrhotic liver morphology with surface nodularity and volumetricredistribution. There are diffuse regions of geographic hypoatten uationthroughout the liver which is predominantly perivascular in distributionwith intervening parenchymal bridges. There are penetrating vesselslocated within these regions of hypoattenuation and there is no frankevidence of mass effect. No discrete focal liver lesion.GALLBLADDER/BILIARY: Cholecystectomy. No biliary duct dilation.PANCREAS: No duct dilation or focal lesion.SPLEEN: Enlarged, measuring 16.2 cm.ADRENAL GLANDS: No adrenal nodule.KIDNEYS AND URETERS: No hydronephrosis, calculi, or holcomb spicious mass.BLADDER: Partially opacified with contrast.REPRODUCTIVE ORGANS: Hysterectomy.BOWEL: Ascending colon mild circumferential wall thickening. Oralcontrast opacifies loops of small bowel in the low abdomen extending tothe mid ileum. No evidence of bowel obstruction.VESSELS: The portal venous system appears patent. The main portal veinmeasures 1.3 cm in diameter. No gardenia esophageal or gastric varices.Recanalized paraumbilical vein. Replaced right hepatic artery originatesfrom the superior mesenteric artery. Replaced left hepatic artery arisesfrom the left gastric artery.LYMPH NODES: U nremarkable.PERITONEUM/RETROPERITONEUM: Small volume ascites. No free air.BONES AND SOFT TISSUES: No suspicious bone lesion. Degenerative changesof the thoracolumbar spine. Facet arthrosis from L3 toS1.IMPRESSION:* Cirrhotic liver with findings of steatosis/steatohepatitis. Nodiscrete focal mass is seen, however, the presence of steatosis limitsthis single phase CT as fatty infiltration can obscure subtle focallesions. Furthermore, the lack of multiphase imaging reduce thesensitivity for focallesion detection and characterization. Considerfurther imaging with MRI of the liver with contrast.* Stigmata of portal hypertension include splenomegaly and small volumeascites. No gardenia esophageal or gastric varices.* Mild circumferential wall thickening of the ascending colon, mayrepresent portal hypertensive colopathy. Colitis is an additionalconsideration in the appropriate clinical context.Electronically Signed By: Toni Valverde12/09/2024 12:48 CDTWorkstation Name: [id number] ABDOMEN/PELVIS WITH IV [id number] 12:45:28 [facility] : 1970 Sex: FTECHNIQUE: CT of the chest, abdomen, and pelvis WITH intravenouscontrast and WITH oral contrast. Dose modulation, iterativereconstruction, and/or weight-based adjustment of the mA/kV was utilizedto reduce the radiation dose to as low as reasonably achievable.INDICATION: Abdominal pain, acute, nonlocalized, new jaundice andhepatic masses seen on OSH imagingCOMPARISON: NoneFINDINGS:NECK: Normal thyroid.HEART AND MEDIASTINUM: Normal heart size. No pericardial effusion. Nosignificant coronary artery calcifications. Normal course and caliber ofthe thoracic aorta without significantatherosclerotic plaque. Thepulmonary trunk measures 2.7 cm.LUNGS AND AIRWAYS: No suspicious pulmonary nodule. A left lower lobenodule with ovoid morphology abuts the major fissure, likely a fissurallymph node. No mass. No focal consolidation. Bandlike opacities in thelower lobes most likely represent atelectasis.PLEURA: No significant effusion. No pneumothorax.LIVER: Cirrhotic liver morphology with surface nodularity and volumetricredistribution. There are diffuse regions of geographic hypoatten uationthroughout the liver which is predominantly perivascular in distributionwith intervening parenchymal bridges. There are penetrating vesselslocated within these regions of hypoattenuation and there is no frankevidence of mass effect. No discrete focal liver lesion.GALLBLADDER/BILIARY: Cholecystectomy. No biliary duct dilation.PANCREAS: No duct dilation or focal lesion.SPLEEN: Enlarged, measuring 16.2 cm.ADRENAL GLANDS: No adrenal nodule.KIDNEYS AND URETERS: No hydronephrosis, calculi, or holcomb spicious mass.BLADDER: Partially opacified with contrast.REPRODUCTIVE ORGANS: Hysterectomy.BOWEL: Ascending colon mild circumferential wall thickening. Oralcontrast opacifies loops of small bowel in the low abdomen extending tothe mid ileum. No evidence of bowel obstruction.VESSELS: The portal venous system appears patent. The main portal veinmeasures 1.3 cm in diameter. No gardenia esophageal or gastric varices.Recanalized paraumbilical vein. Replaced right hepatic artery originatesfrom the superior mesenteric artery. Replaced left hepatic artery arisesfrom the left gastric artery.LYMPH NODES: U nremarkable.PERITONEUM/RETROPERITONEUM: Small volume ascites. No free air.BONES AND SOFT TISSUES: No suspicious bone lesion. Degenerative changesof the thoracolumbar spine. Facet arthrosis from L3 toS1.IMPRESSION:* Cirrhotic liver with findings of steatosis/steatohepatitis. Nodiscrete focal mass is seen, however, the presence of steatosis limitsthis single phase CT as fatty infiltration can obscure subtle focallesions. Furthermore, the lack of multiphase imaging reduce thesensitivity for focallesion detection and characterization. Considerfurther imaging with MRI of the liver with contrast.* Stigmata of portal hypertension include splenomegaly and small volumeascites. No gardenia esophageal or gastric varices.* Mild circumferential wall thickening of the ascending colon, mayrepresent portal hypertensive colopathy. Colitis is an additionalconsideration in the appropriate clinical context.Electronically Signed By: Toni Valverde12/09/2024 12:48 CDTWorkstation Name: [id number] Sodium, random [id number] 12:11:11Sodium Urine<20meq/L12/09/2024 12:11 PM [facility]ENTERReference Range: No NormalsCHI Van Ness campusODIUM, RANDOM [id number] 12:11:11* Test Item Value Reference Range Interpretation Comme nts SODIUM URINE (BEAKER) (test code = 243) < meq/L Reference Range: No NormalsPROTHROMBIN TIME/[id number] 08:30:24* Test Item Value Reference Range Interpretation Comme nts PROTIME (BEAKER) (test code = 759) 21.1 seconds 9.9-12.7 H INR (BEAKER) (test code = 370) 1.89 See Comment RECOMMENDED COUMADIN/WARFARIN INR THERAPY RANGESSTANDARD DOSE: 2.0 - 3.0 Includes: PROPHYLAXIS for venous thrombosis, systemic embolization; TREATMENT for venous thrombosis and/or pulmonary embolus.HIGH RISK: Target INR is 2.5-3.5 for patients with mechanical heart valves.Insurance Office Manager ID -COMPREHENSIVE METABOLIC [id number] 08:01:58* Test Item Value Reference Range Interpretation Comme nts TOTAL PROTEIN (BEAKER) (test code = 770) 6.9 gm/dL 6.4-8.3 ALBUMIN (BEAKER) (test code = 1145) 2.5 g/dL 3.5-5.0 L ALKALINE PHOSPHATASE (BEAKER) (test code = 346) 128 U/L 40-150 BILIRUBIN TOTAL (BEAKER) (test code = 377) 19.9 mg/dL 0.2-1.2 H SODIUM (BEAKER) (test code = 381) 126 meq/L 136-145 L POTASSIUM (BEAKER) (test code = 379) 3.7 meq/L 3.4-5.1 CHLORIDE (BEAKER) (test code = 382) 95 meq/L 98-107 L CO2 (BEAKER) (test code = 355) 22 meq/L 22-29 BLOOD UREA NITROGEN (BEAKER) (test code = 354) 3 mg/dL 10-20 L CREATININE (BEAKER) (test code = 358) 0.60 mg/dL 0.57-1.11 GLUCOSE RANDOM (BEAKER) (test code = 652) 87 mg/dL 70-105 CALCIUM (BEAKER) (test code = 697) 8.2 mg/dL 8.4-10.2 L AST (SGOT) (BEAKER) (test code = 353) 154 U/L 5-34 H ALT (SGPT) (BEAKER) (test code = 347) 42 U/L <55 EGFR (BEAKER) (test code = 1092) 106 mL/min/1.73 sq m Interpretation of eG FR values Stage Description Result G1 Normal or high >=90 G2 Mildly decreased 60-89 G3a Mildly to moderately 45-59 G3b Moderately to severely 30-44 G4 Severly decreased 15-29 G5 Kidney failure <15Reported eGFR is based on the CKD-EPI 2020 equation that does not use a race coefficientEstimated GFR is not as accurate as Creatinine Clearance in predicting glomerular filtration rate. Estimated GFR is not applicable for dialysis patients Specimen markedly [id number] 07:58:59* Test Item Value Reference Range Interpretation Comme nts LIPASE (BEAKER) (test code = 749) 16 U/L <=60 Specimen markedly ictericCBC (HEMOGRAM ONLY)2024-12-09 07:38:33* Test Item Value Reference Range Interpretation Comme nts WHITE BLOOD CELL COUNT (BEAK ER) (test code = 775) 12.3 K/ L 3.5-10.5 H RED BLOOD CELL COUNT (BEAKER ) (test code = 761) 3.45 M/ L 3.93-5.22 L HEMOGLOBIN (BEAKER) (test co de = 410) 12.3 GM/DL 11.2-15.7 HEMATOCRIT (BEAKER) (test co de = 411) 35.8 % 34.1-44.9 MEAN CORPUSCULAR VOLUME (LUCAS KER) (test code = 753) 104 fL 79-95 H MEAN CORPUSCULAR HEMOGLOBIN (BEAKER) (test code = 751) 35.7 pg 25.6-32.2 H MEAN CORPUSCULAR HEMOGLOBIN CONC (BEAKER) (test code = 752) 34.4 GM/DL 32.2-35.5 RED CELL DISTRIBUTION WIDTH (BEAKER) (test code = 412) 18.8 % 11.7-14.4 H PLATELET COUNT (BEAKER) (troy t code = 756) 216 K/CU MM 150-450 MEAN PLATELET VOLUME (BEAKER ) (test code = 754) 10.9 fL 9.4-12.3 NUCLEATED RED BLOOD CELLS (BEAKER) (test code = 413) 0 /100 WBC 0-0 HEPATITIS B [id number] 19:06:17* Test Item Value Reference Range Interpretation Comme nts HEPATITIS B CORE TOTAL ANTIB LORA (BEAKER) (test code = 497) Nonreactive Nonreactive HEPATITIS B SURFACE ANTIBODY (BEAKER) (test code = 647) 10.1 mIU/mL <8.0 H HEPATITIS B SURFACE ANTIGEN (2) (BEAKER) (test code = 2585) Nonreactive Nonreactive HEPATITIS A ANTIBODY, [id number] 18:28:54* Test Item Value Reference Range Interpretation Comme nts HEPATITIS A IGG ANTIBODY (BE TACOS) (test code = 2797) Reactive Nonreactive A ALPHA FETOPROTEIN (AFP), TUMOR [id number] 18:24:06* Test Item Value Reference Range Interpretation Comme nts ALPHA-FETOPROTEIN (BEAKER) ( test code = 1094) 3.4 ng/mL 0.9-8.8 HEPATITIS C [id number] 18:24:06* Test Item Value Reference Range Interpretation Comme nts HEPATITIS C ANTIBODY (BEAKER ) (test code = 367) Nonreactive Nonreactive COMPREHENSIVE METABOLIC [id number] 18:05:39* Test Item Value Reference Range Interpretation Comme nts TOTAL PROTEIN (BEAKER) (test code = 770) 7.1 gm/dL 6.4-8.3 Specimen slightl y hemolyzed ALBUMIN (BEAKER) (test code = 1145) 2.5 g/dL 3.5-5.0 L Specimen slig htly hemolyzed ALKALINE PHOSPHATASE (BEAKER) (test code = 346) 126 U/L 40-150 BILIRUBIN TOTAL (BEAKER) (test code = 377) 19.7 mg/dL 0.2-1.2 H Specimen slightl y hemolyzed SODIUM (BEAKER) (test code = 381) 134 meq/L 136-145 L POTASSIUM (BEAKER) (test code = 379) 4.4 meq/L 3.4-5.1 Specimen sligh tly hemolyzed CHLORIDE (BEAKER) (test code = 382) 102 meq/L 98-107 CO2 (BEAKER) (test code = 355) 21 meq/L 22-29 L BLOOD UREA NITROGEN (BEAKER) (test code = 354) 3 mg/dL 10-20 L CREATININE (BEAKER) (test code = 358) 0.52 mg/dL 0.57-1.11 L Specimen slightl y hemolyzed GLUCOSE RANDOM (BEAKER) (test code = 652) 106 mg/dL 70-105 H CALCIUM (BEAKER) (test code = 697) 7.8 mg/dL 8.4-10.2 L AST (SGOT) (BEAKER) (test code = 353) 160 U/L 5-34 H Specimen slightl y hemolyzed ALT (SGPT) (BEAKER) (test code = 347) 46 U/L <55 Specimen slightl y hemolyzed EGFR (BEAKER) (test code = 1092) 110 mL/min/1.73 sq m Interpretation of eG FR values Stage Description Result G1 Normal or high >=90 G2 Mildly decreased 60-89 G3a Mildly to moderately 45-59 G3b Moderately to severely 30-44 G4 Severly decreased 15-29 G5 Kidney failure <15Reported eGFR is based on the CKD-EPI 2020 equation that does not use a race coefficientEstimated GFR is not as accurate as Creatinine Clearance in predicting glomerular filtration rate. Estimated GFR is not applicable for dialysis patients Specimen markedly ictericPROTHROMBIN TIME/[id number] 18:01:03* Test Item Value Reference Range Interpretation Comme nts PROTIME (MANNY) (test code = 759) 20.9 seconds 9.9-12.7 H INR (BEAKER) (test code = 370) 1.87 See Comment RECOMMENDED COUMADIN/WARFARIN INR THERAPY RANGESSTANDARD DOSE: 2.0 - 3.0 Includes: PROPHYLAXIS for venous thrombosis, systemic embolization; TREATMENT for venous thrombosis and/or pulmonary embolus.HIGH RISK: Target INR is 2.5-3.5 for patients with mechanical heart valves.Insurance Office Manager ID -Hepatitis B surface [id number] 17:51:01* Test Item Value Reference Range Interpretation Comme nts Hepatitis B surface antigen (test code = 5196-1) Nonreactive Nonreactive BLANCA (test code = BLANCA) Specimen is considered negative for HBsAg. Lab Interpretation (test code = 48673-3) Normal [facility] HospitalHepatitis A antibody, [id number] 17:51:01* Test Item Value Reference Range Interpretation Comme nts Hep A IgM (test code = 91827-1) Nonreactive Nonreactive Lab Interpretation (test cod e = 93671-1) Normal [facility] HospitalHEPATITIS B SURFACE [id number] 17:51:01* Test Item Value Reference Range Interpretation Comme nts HEPATITIS B SURFACE ANTIGEN (2) (BEAKER) (test code = 2585) Nonreactive Nonreactive Specimen is considered negative for HBsAg.HEPATITIS A ANTIBODY, [id number] 17:51:01* Test Item Value Reference Range Interpretation Comme nts HEPATITIS A IGM ANTIBODY (BE TACOS) (test code = 498) Nonreactive Nonreactive CBC (HEMOGRAM ONLY)2024-12-08 17:42:57* Test Item Value Reference Range Interpretation Comme nts WHITE BLOOD CELL COUNT (BEAK ER) (test code = 775) 12.2 K/ L 3.5-10.5 H RED BLOOD CELL COUNT (BEAKER ) (test code = 761) 3.62 M/ L 3.93-5.22 L HEMOGLOBIN (BEAKER) (test co de = 410) 13.0 GM/DL 11.2-15.7 HEMATOCRIT (BEAKER) (test co de = 411) 38.0 % 34.1-44.9 MEAN CORPUSCULAR VOLUME (LUCAS KER) (test code = 753) 105 fL 79-95 H MEAN CORPUSCULAR HEMOGLOBIN (BEAKER) (test code = 751) 35.9 pg 25.6-32.2 H MEAN CORPUSCULAR HEMOGLOBIN CONC (BEAKER) (test code = 752) 34.2 GM/DL 32.2-35.5 RED CELL DISTRIBUTION WIDTH (BEAKER) (test code = 412) 18.8 % 11.7-14.4 H PLATELET COUNT (BEAKER) (troy t code = 756) 219 K/CU MM 150-450 MEAN PLATELET VOLUME (BEAKER ) (test code = 754) 10.5 fL 9.4-12.3 NUCLEATED RED BLOOD CELLS (BEAKER) (test code = 413) 0 /100 WBC 0-0 CULTURE, [id number] 08:29:56SPECIMEN NUMBER: [id number] CULTURE, URINE SPECIMEN NUMBER: [id number] SOURCE: URINE REPORT STATUS: FINAL ISOLATE NUMBER 1: ORGANISM: 09/01/2024 >100,000 CFU/ML GRAM NEGATIVE BACILLI IDENTIFICATION: 09/02/2024 ESCHERICHIA COLI E. COLI AMOXICILLIN/CA SENSITIVE <=8/4AMPICILLIN RESISTANT >16CEFAZOLIN SENSITIVE 8CEFTRIAXONE SENSITIVE <=1CIPROFLOXACIN INTERMED 0.5LEVOFLOXACINSENSITIVE <=0.5NITROFURANTOIN SENSITIVE <=32PIP/TAZOBAC SENSITIVE <=16TOBRAMYCIN RESISTANT >8TRIMETH/SULFA RESISTANT >2/38 NOTE: NUMBERS DISPLAYED REPRESENT MINIMUM INHIBITORY CONCENTR ATION (BAUDILIO) WHICH IS EXPRESSED IN MCG/ML. UNLESS OTHERWISE INDICATED, ALL TESTING PERFORMED AT [facility] [address] [place] [address] HAND MITER OPERATOR: LINCOLN VILCHIS M.D. [place] NUMBER [id number] [facility] [place] [id number], [id number] 00:00:00* Test Item Value Reference Range Interpretation Comme nts CULTURE, URINE (test code = 93295) SPECIMEN NUMBER: [id number] Arun Jeter, [id number] 00:00:00* Test Item Value Reference Range Interpretation Comme nts CULTURE, URINE (test code = 94821) SPECIMEN NUMBER: [id number] Arun Jeter [id number] 00:00:00* Test Item Value Reference Range Interpretation Comme nts CULTURE, URINE (test code = 32408) SPECIMEN NUMBER: [id number] Arun Jeter, [id number] 00:00:00* Test Item Value Reference Range Interpretation Comme nts CULTURE, URINE (test code = 56540) SPECIMEN NUMBER: [id number] Arun Jeter, [id number] 00:00:00* Test Item Value Reference Range Interpretation Comme nts CULTURE, URINE (test code = 32443) SPECIMEN NUMBER: [id number] Arun MontenegroC WITH [id number] 23:00:19* Test Item Value Reference Range Interpretation Comme nts WBC (test code = 6690-2) 2.77 4.30-11.10 L RBC (test code = 789-8) 4.32 3.93-5.25 HGB (test code = 718-7) 13.7 g/dL 11.6-15.0 HCT (test code = 4544-3) 42.9 % 35.7-45.2 MCV (test code = 787-2) 99.3 fL 80.6-95.5 H MCH (test code = 785-6) 31.7 pg 25.9-32.8 MCHC (test code = 786-4) 31.9 g/dL 31.6-35.1 RDW-SD (test code = 15978-6) 57.7 fL 39.0-49.9 H RDW-CV (test code = 788-0) 15.9 % 12.0-15.5 H PLT (test code = 777-3) 87 166-358 L MPV (test code = 53879-8) 10.4 fL 9.5-12.9 IPF % (test code = 1690809468) 3.4 % 1.3-7.7 Platelet count measured by fluorescence method. NRBC/100 WBC (test code = 4491267312) 0.0 0.0-10.0 NRBC x10^3 (test code = 4784438228) See_Comment [Automated messa ge] The system which generated this result transmitted reference range: 10*3/?L. The reference range was not used to interpret this result as normal/abnormal. GRAN MAT (NEUT) % (test code = 770-8) 55.9 % IMM GRAN % (test code = 7518779898) 0.40 % LYMPH % (test code = 736-9) 28.2 % MONO % (test code = 5905-5) 12.6 % EOS % (test code = 713-8) 2.5 % BASO % (test code = 706-2) 0.4 % GRAN MAT x10^3(ANC) (test code = 3308290018) 1.55 10*3/uL 1.88-7.09 L IMM GRAN x10^3 (test code = 0213769139) 0.00-0.06 LYMPH x10^3 (test code = 731-0) 0.78 10*3/uL 1.32-3.29 L MONO x10^3 (test code = 742-7) 0.35 10*3/uL 0.33-0.92 EOS x10^3 (test code = 711-2) 0.07 10*3/uL 0.03-0.39 BASO x10^3 (test code = 704-7) 0.01-0.07 Lab Interpretation (test code = 04204-3) [facility]normal [facility] MET[facility]OLIC PANEL ([id number])2024-07-10 22:27:11* Test Item Value Reference Range Interpretation Comme nts NA (test code = 9603705041) 140 mmol/L 135-145 K (test code = 1116547601) 3.8 mmol/L 3.5-5.0 CL (test code = 5021071521) 106 mmol/L 98-108 CO2 TOTAL (test code = 8375392678) 25 mmol/L 23-31 AGAP (test code = 6275442770) 9 2-16 BUN (test code = 4442428791) 9 mg/dL 7-23 GLUCOSE (test code = 2773552522) 99 mg/dL 70-110 CREATININE (test code = 2160-0) 0.51 mg/dL 0.50-1.04 TOTAL BILI (test code = 4977447612) 1.8 mg/dL 0.1-1.1 H CALCIUM (test code = 5454781840) 8.9 mg/dL 8.6-10.6 T PROTEIN (test code = 3966788977) 7.2 g/dL 6.3-8.2 ALBUMIN (test code = 4217727120) 4.0 g/dL 3.5-5.0 ALK PHOS (test code = 9347475417) 86 U/L 34-122 ALTv (test code = 1742-6) 15 U/L 5-35 AST(SGOT) (test code = 4913793170) 46 U/L 13-40 H eGFR (test code = 45397-1) 111.1 mL/min/1.73m2 CKD-EPI eGFR (2020). Assuming creatinine has been stable day-to-day for at least three months, the eGFR indicates Category G1 (>= 90 mL/min/1.73 m2) Lab Interpretation (test code = 83400-1) [facility]normal [facility]2024-[facility]10 22:26:36* Test Item Value Reference Range Interpretation Comme nts LIPASE (test code = 2662028392) 111 U/L 0-220 Lab Interpretation (test cod e = 63116-3) Normal [facility] ABDOMEN PELVIS WO [id number] 21:36:35CT Abdomen and Pelvis without contrast. CLINICAL HISTORY: ?FLANK PAIN. R/O RENAL STONES. TECHNIQUE:Multidetector helical CT acquisition was obtained from the lungbases to the greater trochanters without oral and IV contrast. ?The imageswere reviewed in lung, bone, and soft tissue windows. FINDINGS: ?Absence of intravenous contrast limits evaluation of the solidorgans. Evaluation of the bowel is also limited by lack of oral contrast. Lower lungs: 4.5 mm pleural- based nodularity in the lateral leftcostophrenic sinus (2:15). No pleural effusion or pericardial effusion.Small sliding hiatal hernia suspected. Liver, Gallbladder and Spleen: S/P cholecystectomy. Liver is borderlineenlarged, 17.2 cm with undulating serosal surface, suggestive of cirrhosisand steatosis. Spleen is 16.7 x 8.9 cm in size. Peritoneum: ?No free air or free fluid. No lymphadenopathy. Pancreas and Adrenals: ?Unremarkable pancreas and adrenal glands. Kidneys and Ureters: ?No visible calculi in the renal collecting syst ems. No hydroureter or hydronephrosis. ? Vessels: Mild atherosclerosis. Retroperitoneum: No abnormal fluid or lymphadenopathy. Bowel: ?Clips noted in the right lower quadrant of the abdomen, probablyutilized for appendectomy. Postsurgical fibrotic changes are seen in theright lower abdomen. Mild div erticulosis of the sigmoid colon noted withoutany acute changes. Mild constipation suspected although most of theretained fecal material is present only up to proximal descending colon. Bladder ?and Reproductive Organs: S/P hysterectomy. Grossly unremarkableunder distended urinary bladder. Minimal free fluid is seen in [id number], of uncertain etiology or clinical significance. Bones: ?Lower thoracic degenerative spondylosis. No acute bonyabnormalities. Soft tissues: Small, indirect type of fat-containing inguinal hernia,slightly larger on the right side. CONCLUSION:1. No kidney stones or ureteric stones. No hydronephrosis or hydroureter.2. Borderline hepatomegaly with cirrhotic morphology, portal hypertensioncausing moderate splenomegaly. No ascites.3. S/P cholecystectomy, appendectomy and hysterectomy.[facility] HospitalPOCT [id number] 03:45:00* Test Item Value Reference Range Interpretation Comme nts POCT PREG (test code = 1605) Negative On board controls acceptable with C Line (test code = 3574) Yes Lab Interpretation (test cod e = 88799-1) Normal [facility] WITH [id number] 03:10:57* Test Item Value Reference Range Interpretation Comme nts WBC (test code = 6690-2) 3.45 4.30-11.10 L RBC (test code = 789-8) 4.55 3.93-5.25 HGB (test code = 718-7) 14.3 g/dL 11.6-15.0 HCT (test code = 4544-3) 44.5 % 35.7-45.2 MCV (test code = 787-2) 97.8 fL 80.6-95.5 H MCH (test code = 785-6) 31.4 pg 25.9-32.8 MCHC (test code = 786-4) 32.1 g/dL 31.6-35.1 RDW-SD (test code = 88153-0) 49.1 fL 39.0-49.9 RDW-CV (test code = 788-0) 13.5 % 12.0-15.5 PLT (test code = 777-3) 124 166-358 L MPV (test code = 01306-1) 11.4 fL 9.5-12.9 NRBC/100 WBC (test code = 2367229141) 0.0 0.0-10.0 NRBC x10^3 (test code = 2843097524) See_Comment [Automated messa ge] The system which generated this result transmitted reference range: 10*3/?L. The reference range was not used to interpret this result as normal/abnormal. GRAN MAT (NEUT) % (test code = 770-8) 50.3 % IMM GRAN % (test code = 1248475156) 0.30 % LYMPH % (test code = 736-9) 30.8 % MONO % (test code = 5905-5) 12.5 % EOS % (test code = 713-8) 5.2 % BASO % (test code = 706-2) 0.9 % GRAN MAT x10^3(ANC) (test code = 8057004236) 1.73 10*3/uL 1.88-7.09 L IMM GRAN x10^3 (test code = 8366511029) 0.00-0.06 LYMPH x10^3 (test code = 731-0) 1.06 10*3/uL 1.32-3.29 L MONO x10^3 (test code = 742-7) 0.43 10*3/uL 0.33-0.92 EOS x10^3 (test code = 711-2) 0.18 10*3/uL 0.03-0.39 BASO x10^3 (test code = 704-7) 0.03 10*3/uL 0.01-0.07 Lab Interpretation (test code = 02804-0) Abnormal [facility] 2 [id number] 02:46:09ORDERING PHYSICIAN: GORDY RANDOLPH ? CLINICAL HISTORY:chest pain TECHNIQUE:Chest AP and lateral radiographs. COMPARISON:CXR 05/04/2024. FINDINGS:Normal lung volumes. No focal pulmonary consolidation, pleural effusion orpneumothorax. Heart size within normal limits. Visualized bones areunremarkable.[facility] HospitalTRPRISMA HE[facility] GRE[facility] HOSPITALMALLORYN [id number] 02:16:56* Test Item Value Reference Range Interpretation Comme nts TROPONIN I (test code = 6004198758) <=0.034 BLANCA (test code = BLANCA) Reference (Normal) Range (defined by the 99th percentile reference limit): <= 0.034 ng/mL Note: Cardiac troponin begins to rise 3-4 hours after the onset of ischemia. Repeat in 4-6 hours if the sample was drawn within 3-4 hours of the onset of the symptom and found normal. Diagnosis of myocardial injury is made with acute changes in cTn concentrations with at least one serial sample above the 99th percentile upper reference limit (URL), taken together with the patient's clinical presentation. Biotin has been reported to cause a negative bias, interpret results relative to patient's use of biotin. Lab Interpretation (test code = 15488-4) Normal [facility]. METABOLIC PANEL ([id number])2024-05-28 02:06:12* Test Item Value Reference Range Interpretation Comme nts NA (test code = 4151958113) 140 mmol/L 135-145 K (test code = 9846761180) 3.6 mmol/L 3.5-5.0 CL (test code = 7755191962) 108 mmol/L 98-108 CO2 TOTAL (test code = 6206165638) 24 mmol/L 23-31 AGAP (test code = 5819958504) 8 2-16 BUN (test code = 2058032740) 7 mg/dL 7-23 GLUCOSE (test code = 6675813475) 128 mg/dL 70-110 H CREATININE (test code = 2160-0) 0.53 mg/dL 0.50-1.04 TOTAL BILI (test code = 4691279856) 1.3 mg/dL 0.1-1.1 H CALCIUM (test code = 5823500758) 9.0 mg/dL 8.6-10.6 T PROTEIN (test code = 5471700453) 7.7 g/dL 6.3-8.2 ALBUMIN (test code = 0243569845) 4.2 g/dL 3.5-5.0 ALK PHOS (test code = 2486346547) 88 U/L 34-122 ALTv (test code = 1742-6) 18 U/L 5-35 AST(SGOT) (test code = 5868569060) 43 U/L 13-40 H eGFR (test code = 94572-7) 110.1 mL/min/1.73m2 CKD-EPI eGFR (2020). Assuming creatinine has been stable day-to-day for at least three months, the eGFR indicates Category G1 (>= 90 mL/min/1.73 m2) Lab Interpretation (test code = 27108-8) [facility]normal [facility], [id number] 02:05:12* Test Item Value Reference Range Interpretation Comme nts LIPASE (test code = 1878048716) 107 U/L 0-220 Lab Interpretation (test cod e = 66798-7) Normal [facility] HospitalXR NECK SOFT [id number] 02:52:11EXAM: XR NECK SOFT TISSUE HISTORY: sore throat since extubated after intubated for 5 days afterhemorrhagic stroke 3 weeks ago, worse with fever today COMPARISON: None FINDINGS: The nasopharyngeal andoropharyngeal airways are patent. The visualized cervical spine vertebral bodies are normal in height andalignment. ?No acute fracture or subluxation is seen. Mild spondyloticchanges of the visualized cervical spine noted.The paravertebral soft tissues demonstrate normal width. There is noevidence of foreign body or soft tissue emphysema.[facility] HospitalXR CHEST 1 [id number] 01:08:11ORDERING PHYSICIAN: TAMY MORALES HISTORY: cough, fever TECHNIQUE: AP view of the chest ? COMPARISON: None FINDINGS: Shallow inspiratory volumes. ? ?Mild patchy bilateral interstitial opacities. Noairspace consolidation. No pleural effusion or pneumothorax. ? The cardiac silhouette and pulmonaryvasculature are within normal limits. ? Degenerative changes are seen in the spine and shoulders.[facility] Notes Date/Time Note Provider Source [facility]2025-05-19 00:00:00 [facility]2025-03-06 00:00:00 [facility]2025-01-07 00:00:00 [facility]2024-10-31 00:00:00 [facility]2024-09-19 00:00:00 [facility]2024-09-10 15:03:59 Patient arrived ambulatory via pov states she woke up around 0200 and the right side of her mid back started hurting with spasms. Patient denies injury, hx of recent stroke April 17, 2024, starts rehab Tuesday. [facility] [id number] 14:54:00 [facility] Emergency Department Note Patient Name: Chichi Casey Date of : 1970 53 year old female Treatment Room: [facility] Primary Care Physician: Wolfgang Yeung Patient Escorted by: Self [9] Mode of Arrival: Personal means [1] EMS Treatment Prior to ED Arrival: BUSINESS ANALYSIS SPECIALIST treatment: None Travel and Exposure Screening: Symptoms Does patient have any of these symptoms?: (not recorded) Exposure Screening Has patient had contact with someone with a communicable disease in the last month?: (not recorded) Diseases exposed to:: (not recorded) Is Patient ?: (not recorded) Exposure Date: (not recorded) Chief Complaint: Chief Complaint Patient presents with Back Pain Right mid History of Present Illness: Acute onset this AM with right flank pain. Occurred while seated. Constant, cramping, sharp. Aggravated with torso movement. No relieving factors. No fever. (+) dark urine. No dysuria. No rash. No fall or injury. No nausea, vomiting, diarrhea. Remote history of kidney stones. Recent encounter: 1. 04/17/24 to 04/22/24. Brenda Hernandez. Acute intracerebral hemorrhage. Current residual deficit is mild memory loss. Ambulates and drives a vehicle now. History provided by: Patient Past Medical History/Immunizations: Past Medical History: Diagnosis Date Clinical depression HLD (hyperlipidemia) HTN (hypertension) Intracerebral hemorrhage 04/17/2024 [facility] Tetanus received in last 5 years: Unknown Childhood immunizations: Up-to-date Allergies: No Known Allergies Past Social History: Sexual Activity Sexually active; Partners: Male. Past Surgical History: No past surgical history on file. Review of Systems: Review of Systems Constitutional: Negative. HENT: Negative. Eyes: Negative. Respiratory: Negative. Cardiovascular: Negative. Gastrointestinal: Negative. Genitourinary: Positive for hematuria (dark brownish urine) and flank pain (right). Negative for dysuria and frequency. Skin: Negative. Neurological: Negative. Psychiatric/Behavioral: Negative. Physical Exam: ED Triage Vitals [07/10/24 1506] Weight 92.5 kg (204 lb) Actual or estimated Estimated by patient/family report Height 1.575 m (5' 2") BP (!) 142/82 Pulse 76 Resp 16 Temp 36.9 ?C (98.4 ?F) Temp source Oral SpO2 97 % Measured on Room air Physical Exam Vitals and nursing note reviewed. Constitutional: General: She is not in acute distress. Appearance: Normal appearance. She is not ill-appearing, toxic-appearing or diaphoretic. HENT: Head: Normocephalic and atraumatic. Right Ear: External ear normal. Left Ear: External ear normal. Nose: Nose normal. Mouth/Throat: Mouth: Mucous membranes are moist. Eyes: Extraocular Movements: Extraocular movements intact. Conjunctiva/sclera: Conjunctivae normal. Cardiovascular: Rate and Rhythm: Normal rate and regular rhythm. Pulmonary: Effort: Pulmonary effort is normal. No respiratory distress. Breath sounds: Normal breath sounds. No wheezing, rhonchi or rales. Abdominal: General: There is no distension. Palpations: Abdomen is soft. Tenderness: There is right CVA tenderness. There is no left CVA tenderness. Musculoskeletal: General: Normal range of motion. Cervical back: Normal range of motion. Skin: General: Skin is warm and dry. Neurological: General: No focal deficit present. Mental Status: She is alert. Psychiatric: Mood and Affect: Mood normal. Behavior: Behavior normal. Thought Content: Thought content normal. Judgment: Judgment normal. Radiology: CT ABDOMEN PELVIS WO CONTRAST Final Result CT Abdomen and Pelvis without contrast. CLINICAL HISTORY: FLANK PAIN. R/O RENAL STONES. TECHNIQUE: Multidetector helical CT acquisition was obtained from the lung bases to the greater trochanters without oral and IV contrast. The images were reviewed in lung, bone, and soft tissue windows. FINDINGS: Absence of intravenous contrast limits evaluation of the solid organs. Evaluation of the bowel is also limited by lack of oral contrast. Lower lungs: 4.5 mm pleural-based nodularity in the lateral left costophrenic sinus (2:15). No pleural effusion or pericardial effusion. Small sliding hiatal hernia suspected. Liver, Gallbladder and Spleen: S/P cholecystectomy. Liver is borderline enlarged, 17.2 cm with undulating serosal surface, suggestive of cirrhosis and steatosis. Spleen is 16.7 x 8.9 cm in size. Peritoneum: No free air or free fluid. No lymphadenopathy. Pancreas and Adrenals: Unremarkable pancreas and adrenal glands. Kidneys and Ureters: No visible calculi in the renal collecting systems. No hydroureter or hydronephrosis. Vessels: Mild atherosclerosis. Retroperitoneum: No abnormal fluid or lymphadenopathy. Bowel: Clips noted in the right lower quadrant of the abdomen, probably utilized for appendectomy. Postsurgical fibrotic changes are seen in the right lower abdomen. Mild diverticulosis of the sigmoid colon noted without any acute changes. Mild constipation suspected although most of the retained fecal material is present only up to proximal descending colon. Bladder and Reproductive Organs: S/P hysterectomy. Grossly unremarkable under distended urinary bladder. Minimal free fluid is seen in the cul-de-sac, of uncertain etiology or clinical significance. Bones: Lower thoracic degenerative spondylosis. No acute bony abnormalities. Soft tissues: Small, indirect type of fat-containing inguinal hernia, slightly larger on the right side. CONCLUSION: 1. No kidney stones or ureteric stones. No hydronephrosis or hydroureter. 2. Borderline hepatomegaly with cirrhotic morphology, portal hypertension causing moderate splenomegaly. No ascites. 3. S/P cholecystectomy, appendectomy and hysterectomy. Lab Results: Lab Results CBC WITH DIFF - Abnormal Result Value Ref Range WBC 2.77 (*) 4.30 - 11.10 10*3/?L RBC 4.32 3.93 - 5.25 10*6/?L HGB 13.7 11.6 - 15.0 g/dL HCT 42.9 35.7 - 45.2 % MCV 99.3 (*) 80.6 - 95.5 fL MCH 31.7 25.9 - 32.8 pg MCHC 31.9 31.6 - 35.1 g/dL RDW-SD 57.7 (*) 39.0 - 49.9 fL RDW-CV 15.9 (*) 12.0 - 15.5 % PLT 87 (*) 166 - 358 10*3/?L MPV 10.4 9.5 - 12.9 fL IPF % 3.4 1.3 - 7.7 % NRBC/100 WBC 0.0 0.0 - 10.0 /100 WBCs NRBC x103<0.01 10*3/?L GRAN MAT (NEUT) % 55.9 % IMM GRAN % 0.40 % LYMPH % 28.2 % MONO % 12.6 % EOS % 2.5 % BASO % 0.4 % GRAN MAT x103(ANC) 1.55 (*) 1.88 - 7.09 10*3/uL IMM GRAN x103<0.03 0.00 - 0.06 10*3/uL LYMPH x1030.78 (*) 1.32 - 3.29 10*3/uL MONO x1030.35 0.33 - 0.92 10*3/uL EOS x1030.07 0.03 - 0.39 10*3/uL BASO x103<0.03 0.01 - 0.07 10*3/uL COMP. METABOLIC PANEL (81402) - Abnormal NA 140 135 - 145 mmol/L K 3.8 3.5 - 5.0 mmol/L CL 106 98 - 108 mmol/L CO2 TOTAL 25 23 - 31 mmol/L AGAP 9 2 - 16 BUN 9 7 - 23 mg/dL GLUCOSE 99 70 - 110 mg/dL CREATININE 0.51 0.50 - 1.04 mg/dL TOTAL BILI 1.8 (*) 0.1 - 1.1 mg/dL CALCIUM 8.9 8.6 - 10.6 mg/dL T PROTEIN 7.2 6.3 - 8.2 g/dL ALBUMIN 4.0 3.5 - 5.0 g/dL ALK PHOS 86 34 - 122 U/L ALTv 15 5 - 35 U/L AST(SGOT) 46 (*) 13 - 40 U/L eGFR 111.1 mL/min/1.73m2 URINALYSIS - Abnormal APPEARANCE Clear Clear COLOR Melania (*) Yellow PH 6.0 4.8 - 8.0 SP GRAVITY 1.028 1.003 - 1.030 GLU U QUAL Normal Normal BLOOD Negative Negative KETONES Negative Negative PROTEIN 30 mg/dL (*) Negative UROBILIN 4.0 mg/dL (*) Normal BILIRUBIN Negative Negative NITRITE Negative Negative LEUK DIOR Negative Negative RBC/HPF 3 0 - 3 HPF WBC/HPF 1 0 - 5 HPF BACTERIA Negative Negative MUCOUS Slight (*) Negative LPF SQ EPITH 8 HPF LIPASE - Normal LIPASE 111 0 - 220 U/L EKG: If EKG completed, see Procedure Note. Orders and Treatments: Orders Placed This Encounter Procedures CT ABDOMEN PELVIS WO CONTRAST CBC WITH DIFF COMP. METABOLIC PANEL (22239) LIPASE URINALYSIS Orders Placed This Encounter Medications morpHINE (4 mg/mL) injection 4 mg ondansetron (ZOFRAN (PF)) injection 4 mg predniSONE 20 mg tablet lidocaine 5 % (700 mg/patch) patch traMADoL 50 mg tablet First Provider Eval: ED Events Date/Time Event User Comments 07/10/24 1515 Medical Screening Begins FREDDIE MARCH MD -- 07/10/24 1515 First Provider Evaluation FREDDIE MARCH MD -- ED COURSE Diagnosis/Impression as of 09/10/24 1821 Right flank pain Procedures: Procedures MDM: Medical Decision Making Primary impression: right flank pain without acute critical exam findings Differential Diagnoses, including but not limited to: electrolyte / glucose abnl, anemia, GREGORY, stone, neoplasm, radiculopathy, cystitis Problems Addressed: Right flank pain: acute illness or injury Amount and/or Complexity of Data Reviewed Independent Historian: Details: self Labs: ordered. Decision-making details documented in ED Course. Radiology: ordered. Decision-making details documented in ED Course. Risk Prescription drug management. Parenteral controlled substances. Risk Details: Unremarkable OBS in ED. Symptoms improved. Findings and plan discussed with patient. No findings that require acute hospitalization today. Flowsheet Documentation: Scoring Tools: No data recorded Disposition/Condition: ED Disposition ED Disposition Disch - Home Condition Stable Comment -- Discharge Medications: Patient's Medications START taking these medications LIDOCAINE 5 % (700 MG/PATCH) PATCH Apply one patch to most painful area up to 12 hours a day as needed for pain. PHARMACIST: dispense one box PREDNISONE 20 MG TABLET Take 2 tablets by mouth in the morning for 7 days. TRAMADOL 50 MG TABLET Take 1 tablet by mouth every 6 (six) hours as needed (pain). Indications: acute pain CONTINUE taking these medications which have NOT CHANGED ASPIRIN 81 MG ORAL TAB Take 1 tab PO daily ESGIC-PLUS 50-500-40 MG ORAL CAP Take 1 tab q4hPRN FERROUS SULFATE 325 MG (65 MG IRON) EC TABLET Take 1 tablet by mouth in the morning. LEVETIRACETAM 1,000 MG TABLET Take 1 tablet by mouth twice daily For seizures - do not miss doses LORAZEPAM 1 MG ORAL TAB Take 1 tab PO BIDPRN ONDANSETRON HCL 4 MG ORAL TAB Take 1 tab q8hPRN PAROXETINE HCL 20 MG ORAL TAB Take 1 tab PO daily START taking Modified Medications as Prescribed No medications on file STOP taking these medications No medications on file Follow-up: PCP Electronically signed by: Freddie March MD 07/10/241820 [facility] - [id number] 22:58:37 Pt discharged with diagnosis of CP, acute nonintractable headache nausea, and rhinorrhea. Printed and verbal instructions reviewed with and given to pt. Prescriptions given x 0. Pt verbalized understanding of teaching and recommended follow-up. Denies questions or concerns at this time. Pt ambulatory at discharge. Appears in no apparent distress. No ataxia noted. Accompanied by family. Stacie Elam [id number] 19:34:21 Pt arrived ambulatory without assist, c/o feeling off with chest pain, shaky and anxious that started last night and then has been on and off today. Aide Simpson [place] [id number] 00:00:00 [facility]2024-07-16 00:00:00 [place] [id number] 22:41:08 Pt given printed and verbal discharge instructions regarding pharyngitis, encouraged hydration, Prescriptions provided. Discussed antibiotic therapy and to take until all completed unless adverse reaction occurs - if occurs, discontinue medication and follow up with pcp/seek medical attention Pt verbalized understanding of instructions, pt awake alert oriented, resp reg unlabored, skin w/d, color appropriate for race, moves all ext well,pt encouraged to follow up with pcp Advised to seek medical attention for new/prolonged/worsening of symptoms, No adverse reaction to meds given in ER noted upon discharge Awake, alert oriented, resp reg unlabored, skin w/d, pt leaving amb with steady gait, in no apparent distress, [id number] 18:19:09 Came in via private auto due to fever and sore throat aox4, rr even and non labored. Vitals are stable. Hx of stroke two weeks ago H Carey Coto [facility]
[2025-06-25 18:09] VITALS: BP 128/66; TEMP 97.6; O2SAT 98
== END 2025-06-25 14:12 | disposition home or self-care (01) ==
LOC: ER 13:51
DX: M25.512 Pain in left shoulder (principal)
CPT/HCPCS: Q0162

== ENCOUNTER 2025-07-19 18:00 | Emergency (ER) | payer OTHER ==
--- OUTSIDE RECORDS SUMMARY | 2025-07-19 18:23 | XMS REPORT | Continuity of Care Document ---
Author Name Unknown Address [address] [facility] [address] [place] [address] [facility] [place] Address [address] [facility] [address] [place] [address] Care Team Providers Care Government Auditor Name Role Phone Anjana LEES, [facility] Primary Care Physician LUH HERRERA Attending Clinician UnavailDENVER Pierre Attending Clinician SORIN Godinez Attending Clinician JASMIN Prescott Attending Clinician IHSAN Dave Attending Clinician ANGIE Herzog Attending Clinician UnavailMAGDALENA Jackson Attending Clinician CHARLIE Gomez Attending Clinician UnavailLASHONDA Son Attending Clinician UnavailSharonda Anand Attending Clinician Unavailab Thierno LEES, Thea Attending Clinician ELECHI, THEA Attending Clinician Unavailable MICHELLE POND Attending Clinician Unavaila farnaz Pond MD, Michelle Attending Clinician [phone] DANITA QUACH Attending Clinician Unavailab DANITA Santiago Attending Clinician Unavailab Felipa Schaefer RN Attending Clinician Unavailable BAIRON HANSEN Attending Clinician Unavailomar Hansen MD, Bairon Attending Clinician Unavailable NIK VALDIVIA Attending Clinician Unavailable Shaquille ACOSTA, Zainab Nelson Attending Clinician Unavailab YASMINE Salas Attending Clinician Unavailomar Cline MD, Yasmine Attending Clinician [phone] BILLY NEWBERRY Attending Clinician Unavaila Nithya Valdez Attending Clinician Unavailab Addis Myers Attending Clinician Unavailable Alexi Bhakta Attending Clinician Unavailable LANCE HATCH Attending Clinician Unavail able Mamie LEES, Lance Dumont Attending Clinician [phone] Luh Herrera MD Attending Clinician +[phone] Jong Dickens MD Attending Clinician + Paxton Quach MD Attending Clinician [phone] PAXTON QUACH Attending Clinician Unavailabl SONDRA Austin Attending Clinician Unavailable Usha Shields MD Attending Clinician [phone] Flavio Nieves MD Attending Clinician [phone] Rekha Russell MD Attending Clinician + [phone] Sondra Jones MD Attending Clinician + [phone] FLAVIO NIEVES L Attending Clinician Unavailable USHA SHIELDS Attending Clinician Unavailable DONNA SADLER Attending Clinician Donna Barahona MD Attending Clinician [phone] Windy Lay MD Attending Clinician [phone] Fermín Null MD Attending Clinician [phone] Denver Ambriz MD Attending Clinician [phone] JENNIFER JEREZ Attending Clinician Unavailable Shanell Leo Attending Clinician Unavailable Dieter Melendez MD Attending Clinician [phone] Vandana ACOSTA, Nick Attending Clinician Unavaila farnaz Provider, Not In System Attending Clinician UnaLYNN Norman Attending Clinician Unavailomar Forte MD, Peewee Attending Clinician [phone] Wagner LEES, Lynn Flowers Attending Clinician [phone] Laureen Infante Attending Clinician Unavailable Debbie LEES, Eva Attending Clinician [phone] Kip Flanagan CRNA Attending Clinician [phone] Ellie LEES, Angie Ba Attending Clinician [phone] Vicki EMERSON, Mariel Attending Clinician [phone] Diane ACOSTA, Maritza Cole Attending Clinician Unavailable LINCOLN RODRIGUEZ Attending Clinician U navailable Jamil Floyd DO Attending Clinician + [phone] Chanell Michael Attending Clinician [phone] Lincoln Rodriguez MD Attending Clinician [phone] JAMIL FLOYD Attending Clinician Unavaila GUSTABO Huitron Attending Clinician Unavailable Taylor LEES, Gustabo Cole Attending Clinician [phone] YeYovani grijalva DO Attending Clinician [phone] YOVANI CULVER Attending Clinician Unavailable Pastora Coe Attending Clinician Unavailable Aaron Weinberg MD Attending Clinician [phone] Attending Clinician Unavailable Roland Wakefield LCSW Attending Clinician Chelsea Crespo Attending Clinician Unavailable AARON WEINBERG ABA Attending Clinician Unaalpesh Regan RN, Nohemy Attending Clinicia n Unavailable Keyonna Be Attending Clinician Unavailable Sorin Murillo NP, V Attending Clinician [phone] DAGO CASILLAS Attending Clinician Unavailable Sonja LEES, Dago Attending Clinician [phone] CHANELL MICHAEL Attending Clinician Unav ailable GORDO, MARIBETH N Attending Clinician Unavailable Gordo DO, Maribeth Attending Clinician [phone] Raj LEES, Jasmin Dempsey Attending Clinicia n Hilda LEES, Greta Mitchell Attending Clinician Delia vailable GRETA RENTERIA Attending Clinician Delia vailable Lucero DANDY OPERATOR, Line K Attending Clinician [phone] LUCERO, RIOS MCKINLEY Attending Clinician Unava ilable DWAYNE FRITZ Attending Clinician Unavail able Lam LEES, Dwayne Attending Clinician [phone] Sean LEES, Magdalena Attending Clinician [phone] Florentino LEES, Damir Attending Clinician [phone] Claritza LEES, Dara Gallo Attending Clinician [phone] Ihsan Yu MD Attending Clinician [phone] Fabio Moss MD Attending Clinician [phone] Freddie March MD Attending Clinician [phone] Doctor Unassigned, Helena Attending Clinician U darvinailable FLAKITO CAIN Attending Clinician Unavailable Neurology Attending Clinician Unavailable GORDY RANDOLPH Attending Clinician Unavailable Andrew BAIRD, [place] Attending Clinician [phone] TAMY MORALES Attending Clinician Unavailable ZEB DE LEON Attending Clinician Un available BRITTANIE ZEPEDA Attending Clinician Unavailomar LAKHANI MD Attending Clinician Unavailab JONNA Brady Attending Clinician Unavail able JONG DICKENS Admitting Clinician Unavailable DENVER AMBRIZ Admitting Clinician UnavailJASMIN Locke Admitting Clinician U steveable MAGDALENA CORDOBA Admitting Clinician Unavailable TYREL PINEDA Admitting Clinician Unavailable FLAVIO NIEVES Admitting Clinician Unavailable WINDY LAY Admitting Clinician Unavailab PEEWEE Wynn Admitting Clinician Unavailable BAIRON HANSEN Admitting Clinician UnavailCHANELL Aguirre Admitting Clinician Unav ailable TAYLOR, GUSTABO R Admitting Clinician Unavailable GORDY RANDOLPH Admitting Clinician Unavailable TAMY MORALES Admitting Clinician Unavailable ZEB DE LEON Admitting Clinician Un available Payers Payer Name Policy Type Policy Number Effective Date Expirati on Date Source [employer]ET[employer] EXCHANGE [id number] 2024 00:00:00 [employer] EXCHANGE [id number] 2024 00:00:00 [employer] 94 9 [id number] 2024 00:00:00 [employer] W/ JENNIFER RINCONOLD OON [id number] 2024 00:00:00 Problems Condition Name Condition Details Condition Category Status Onset Date Resolution Date Last Treatment Date Treating Clinician Comments Source Hepatic cirrhosis (multi HCC) Hepatic cirrhosis (multi HCC) Disease Active 06-27 00:00: 00 Jennifer Seybold - Externa l Hyperbilir ubinemia Hyperbilir ubinemia Disease Active 06-27 00:00: 00 Jennifer Alanisybold - Externa l Vomiting Vomiting Disease Active 04-10 00:00: 00 [facility] Intractabl e nausea and vomiting Intractabl e nausea and vomiting Disease Active 04-10 00:00: 00 [facility] Nausea and vomiting, unspecifie d vomiting type Nausea and vomiting, unspecifie d vomiting type Disease Active 03-07 00:00: 00 [facility] Other chronic pancreatit is Other chronic pancreatit is Disease Recurre nce 03-06 00:00: 00 [facility] Abdominal pain, generalize d Abdominal pain, generalize d Disease Active 03-06 00:00: 00 [facility] RUQ abdominal pain RUQ abdominal pain Disease Active 18 00:00: 00 [facility] Encounter for pre-transp lant evaluation for liver transplant Encounter for pre-transp lant evaluation for liver transplant Disease Active 4-10 00:00: 00 [facility] Encounter for pre-transp lant evaluation for chronic liver disease Encounter for pre-transp lant evaluation for chronic liver disease Disease Active 2025-0 3-26 00:00: 00 [facility] Abdominal pain, unspecifie d abdominal location Abdominal pain, unspecifie d abdominal location Disease Active 2-26 00:00: 00 [facility] Portal hypertensi on Portal hypertensi on Disease Recurre nce 0 2-18 00:00: 00 [facility] Alcoholic hepatitis Alcoholic hepatitis Disease Recurre nce 0 2-18 00:00: 00 [facility] Abnormal liver enzymes Abnormal liver enzymes Disease Active 2-18 00:00: 00 [facility] Other ascites Other ascites Disease Active 0 2-18 00:00: 00 [facility] Alcohol use disorder Alcohol use disorder Disease Active 218 00:00: 00 [facility] Hyperbilir ubinemia Hyperbilir ubinemia Disease Active 218 00:00: 00 [facility] Alcohol use disorder Alcohol use disorder Disease Active 218 00:00: 00 [facility] Cirrhosis Cirrhosis Disease Recurre ore 0 2-08 00:00: 00 [facility] Jaundice Jaundice Disease Active 2-08 00:00: 00 [facility] Liver masses Liver masses Disease Active 2-08 00:00: 00 [facility] Abdominal pain Abdominal pain Disease Active 2-08 00:00: 00 [facility] Obesity Obesity Disease Active 01-02 00:00: 00 Jennifer man Exposure to second hand tobacco smoke Exposure to second hand tobacco smoke Disease Active 01-02 00:00: 00 [facility] Family history of esophageal cancer Family history of esophageal cancer Disease Active 01-02 00:00: 00 [facility] History of pneumonia History of pneumonia Disease Active 3 00:00: 00 [facility] Iron deficiency anemia Iron deficiency anemia Disease Active 3 00:00: 00 [facility] Obesity (BMI 30-39.9) Obesity (BMI 30-39.9) Disease Active 01-04 00:00: 00 [facility] Numbness of arm Numbness of arm Disease Active 03-21 00:00: 00 [facility] Headache Headache Disease Active 03-21 00:00: 00 Overview: Formattin g of this note might be different from the original. ICD10 Diagnosis Term Field [employer] Worker Utility [facility] Depression Depression Disease Recurre [facility] 03-21 00:00: 00 [facility] Seizure disorder Seizure disorder Disease Recurre [facility] CVA (cerebral vascular accident) CVA (cerebral vascular accident) Disease Recurre [facility] History of stroke History of stroke Disease Active Jennifer Florez - Externa l Allergies, Adverse Reactions, Alerts Allergy Name Allergy Type Status Severity Reaction(s) Onset Date Inactive Date Treating Clinician Comments Source Sulfa Antibiot ics Propensi ty to adverse reaction s Active Other 12-08 00:00: 00 Doesn't know [facility] Sulfa (Sulfona mide Antibiot ics) Propensi ty to adverse reaction s Active Other (See Comments) 12-08 00:00: 00 Doesn't know [facility] SULFA (SULFONA MIDE ANTIBIOT ICS) Allergy Active Other 12-08 00:00: 00 [facility] NO KNOWN ALLERGIE S Allergy Active [facility] NO KNOWN ALLERGIE S Drug Class Active [facility] Family History Family Member Diagnosis Comments Start Date Stop Date Sourc e Natural father Cancer [facility] Natural mother Asthma [facility] Natural mother Diabetes [facility] Social History Social Habit Start Date Stop Date Quantity Comments Source Sexual orientation 2025-06-19 12:23:21 Heterosexual (finding) [facility] ASSERTION Not [facility] Gender identity Nadine Florez - External History of Occupation Jennifer Florez - External Alcoholic beverage intake 2025-07-09 00:00:00 2025-07-09 00:00:00 Ex-drinker (finding) [facility] Sex 2025-06-07 01:21:25 2025-06-07 01:21:25 Female (finding) [facility] History of Social function 2025-05-02 00:00:00 2025-05-02 00:00:00 [facility] Alcohol Comment 2025-02-26 00:00:00 2025-02-26 00:00:00 none since 2023 [facility] Tobacco use and exposure 2024-12-08 00:00:00 2024-12-08 00:00:00 Smokeless tobacco non-user [facility] Alcohol intake 2024-01-03 00:00:00 2024-01-03 00:00:00 Current drinker of alcohol (finding) Jennifer Florez - External Education 2024-01-03 00:00:00 2024-01-03 00:00:00 15 Jennifer Florez - External Sex assigned at 1970 00:00:00 1970 00:00:00 F [facility] Smoking Status Start Date Stop Date Source Tobacco smoking consumption unknown [facility] Never smoked tobacco [facility] Medications Ordered Medication Name Filled Medication Name Start Date Stop Date Current Medication? Ordering Clinician Indication Dosage Frequency Signature (SIG) Comments Components Source cholecalcif pratibha, vitamin D3, 50 mcg (2,000 unit) cap 07-15 02:23: 27 Yes 2000U QD Take 1 capsule (2,000 Units total) by mouth daily. [facility] zinc gluconate 50 mg tablet 07-15 02:23: 27 Yes 50mg QD Take 1 tablet (50 mg total) by mouth daily. [facility] ondansetron (ZOFRAN-ODT ) 4 MG disintegrat ing tablet 07-09 00:00: 00 07-16 23:59 :00 No 4mg Take 1 tablet (4 mg total) by mouth every 4 (four) hours as needed for nausea or vomiting for up to 7 days. [facility] Ferrous Sulfate (Iron) 325 (65 Fe) MG oral Tablet Ferrous Sulfate (Iron) 325 (65 Fe) MG oral Tablet 828 14:24: 44 Yes [id number] 325mg Q.5D Take 1 tablet (325 mg total) by mouth in the morning and 1 tablet (325 mg total) in the evening. Jennifer man Ascorbic Acid (Vitamin C) 500 MG oral Tablet Ascorbic Acid (Vitamin C) 500 MG oral Tablet 06-27 14:24: 44 Yes [id number] 500mg Q.5D Take 1 tablet (500 mg total) by mouth in the morning and 1 tablet (500 mg total) in the evening. Jennifer man Cetirizine (ZyrTEC Allergy) 10 MG oral Tablet Cetirizine (ZyrTEC Allergy) 10 MG oral Tablet 06-27 14:24: 44 Yes [id number] 10mg QD Take 1 tablet (10 mg total) by mouth daily. Jennifer man Albuterol HFA 108 (90 Base) MCG/ACT IN AERS Albuterol HFA 108 (90 Base) MCG/ACT IN AERS 06-27 14:24: 13 06-27 00:00 :00 No [id number] 2{puff} Q.25D Inhale 2 puffs into the lungs every 6 hours as needed for wheezing. Jennifer man Acetaminoph en-Codeine 300-60 MG oral Tablet Acetaminoph en-Codeine 300-60 MG oral Tablet 06-27 00:00: 00 Yes [id number] 1{tbl} Q.5D Take 1 tablet by mouth 2 times daily as needed for pain. Jennifer man iopamidol (ISOVUE 370-500 mL) injection 83 mL 06-25 23:45: 00 06-26 00:00 :00 No [id number] 83mL 83 mL, Intravenou s, ONCE, 1 dose, On Tue06/25/25 at 1900, Routine [facility] KCL (KLOR-CON M20) tablet 20 mEq 06-25 23:45: 00 06-26 00:09 :00 No 20meq 20 mEq, Oral, ONCE, 1 dose, On Tue06/25/25 at 1845, LIZETH [facility] NaCl 0.9% (NS) bolus infusion 500 mL 06-25 23:45: 00 06-26 00:54 :00 No 500mL at 999 mL/hr, 500 mL, IV Infusion, ONCE, 1 dose, On Tue06/25/25 at 1845, STAT [facility] metoclopram guillaume HCl (REGLAN) injection 5 mg 06-25 22:45: 00 06-25 23:08 :00 No 5mg 5 mg, Slow IV Push, ONCE, 1 dose, On Tue06/25/25 at 1745, LIZETH [facility] Ondansetron HCl 4 MG oral Tablet Ondansetron HCl 4 MG oral Tablet 06-25 00:00: 00 Yes 4mg Q.[id number] 3D Take 1 tablet (4 mg total) by mouth every 8 hours as needed. Jennifer man mupirocin 2 % topical ointment 06-24 00:00: 00 Yes 1% Arun [place] lactulose (CHRONULAC) 10 gram/15 mL solution 06-19 12:24: 42 04-24 00:00 :00 No 20g Q.5D Take 30 mLs (20 g total) by mouth 2 (two) times daily. [facility] traMADoL (ULTRAM) 50 mg tablet 05-16 00:00: 00 Yes 50mg Take 1 tablet (50 mg total) by mouth every 6 (six) hours as needed for pain for up to 8 doses. Max Daily Amount: 200 mg [facility] pantoprazol e (PROTONIX) 40 MG tablet 05-16 00:00: 00 06-15 23:59 :00 No 40mg Take 1 tablet (40 mg total) by mouth Daily (0600) for 30 days. [facility] ondansetron (ZOFRAN) 4 MG tablet 05-16 00:00: 00 05-23 23:59 :00 No Nausea 4mg Take 1 tablet (4 mg total) by mouth every 8 (eight) hours as needed for up to 7 days. [facility] sucralfate (CARAFATE) 1 gram tablet 05-16 00:00: 00 05-18 23:59 :00 No 1g Q.25D Take 1 tablet (1 g total) by mouth 4 (four) times daily for 2 days. [facility] rifAXIMin (Xifaxan) 550 mg 05-14 00:00: 00 Yes Hepatic encephalopa thy (HCC) 550mg Q.5D Take 1 tablet (550 mg total) by mouth 2 (two) times daily. [facility] traMADoL (ULTRAM) 50 mg tablet 05-04 00:00: 00 05-14 23:59 :00 No 50mg Take 1 tablet (50 mg total) by mouth every 6 (six) hours as needed for pain for up to 10 days. Max Daily Amount: 200 mg [facility] lactulose (CHRONULAC) 10 gram/15 mL solution 04-24 00:00: 00 Yes Hepatic encephalopa thy (HCC) 20g Q.[id number] 3D Take 30 mLs (20 g total) by mouth 3 (three) times daily. [facility] thiamine 100 MG tablet 04-13 00:00: 00 04-13 23:59 :00 No 100mg QD Take 1 tablet (100 mg total) by mouth daily. [facility] furosemide (LASIX) 20 MG tablet 04-12 00:00: 00 04-12 23:59 :00 No 20mg Take 1 tablet (20 mg total) by mouth 2 (two) times daily. [facility] levETIRAcet am (KEPPRA) 250 MG tablet 04-12 00:00: 00 04-12 23:59 :00 No 250mg Q.5D Take 1 tablet (250 mg total) by mouth 2 (two) times daily Look-ali ke/Sound-a like medication . [facility] sennosides (SENOKOT) 8.6 mg tablet 04-12 00:00: 00 04-12 23:59 :00 No 8.6mg Take 1 tablet (8.6 mg total) by mouth every night as needed for constipati on. [facility] acetaminoph en (TYLENOL) 325 MG tablet 04-12 00:00: 00 04-07 23:59 :00 No 325mg Take 1 tablet (325 mg total) by mouth every 4 (four) hours as needed for up to 360 days. [facility] diphenhydrA MINE (BENADRYL) 25 mg capsule 04-12 00:00: 00 04-22 23:59 :00 No 25mg Take 1 capsule (25 mg total) by mouth every 6 (six) hours as needed for itching for up to 10 days. [facility] docusate sodium (COLACE) 100 MG capsule 04-12 00:00: 00 04-22 23:59 :00 No 100mg Q.5D Take 1 capsule (100 mg total) by mouth 2 (two) times daily for 10 days. [facility] promethazin e (PHENERGAN) 12.5 MG tablet 04-12 00:00: 00 04-19 23:59 :00 No 12.5mg Take 1 tablet (12.5 mg total) by mouth every 6 (six) hours as needed for nausea or vomiting for up to 7 days. [facility] gabapentin 100 mg capsule 03-18 00:00: 00 Yes 2mg Arun F Lan cholecalcif pratibha, vitamin D3, 50 mcg (2,000 unit) cap 03-12 12:18: 42 Yes 2000U QD Take 1 capsule (2,000 Units total) by mouth daily. [facility] zinc gluconate 50 mg tablet 03-12 12:18: 42 Yes 50mg QD Take 1 tablet (50 mg total) by mouth daily. [facility] ondansetron (ZOFRAN) 4 MG tablet 03-12 00:00: 00 Yes Nausea 4mg Take 1 tablet (4 mg total) by mouth 2 (two) times daily as needed for nausea or vomiting. [facility] Multiple Vitamins-Mi nerals (ZINC PO) 03-04 17:00: 45 03-04 00:00 :00 No Take by mouth. [facility] levETIRAcet am (Keppra) 250 MG tablet 03-04 15:57: 29 Yes 500mg QD Take 500 mg by mouth 1 (one) time each day. [facility] lactulose (Enulose) 10 GM/15ML solution oral solution 03-04 15:56: 22 Yes 30mL Q.[id number] 3D Take 30 mL by mouth in the morning and 30 mL at noon and 30 mL in the evening. [facility] polyethylen e glycol (GoLYTELY) 236-22.74-6 .74 -5.86 gram solution 02-22 00:00: 00 03-31 00:00 :00 No Colon cancer screening Day before colonoscop y at 6PM: Drink 2 L of Golytely over 2 hrs. 4 hrs before you leave for colonoscop y: Drink remaining 2L over 1.5 hrs. [facility] HYDROcodone -acetaminop hen (NORCO) 5-325 mg per tablet 02-16 00:00: 00 02-21 23:59 :00 No 1{tbl} Take 1 tablet by mouth every 6 (six) hours as needed for pain for up to 5 days. Max Daily Amount: 4 tablets [facility] ondansetron (ZOFRAN-ODT ) 4 MG disintegrat ing tablet 02-16 00:00: 00 02-21 23:59 :00 No 4mg Take 1 tablet (4 mg total) by mouth every 6 (six) hours as needed for nausea or vomiting for up to 5 days. [facility] ergocalcife rol (Vitamin D2) 1,250 mcg (50,000 unit) capsule 02-12 00:00: 00 Yes Low vitamin D level [id number] Take 1 capsule (50,000 Units total) by mouth every 7 days. [facility] potassium chloride ER 20 mEq tablet,exte nded release 01-03 00:00: 00 Yes 2mEq Arun [place] potassium chloride (KLOR-CON) 20 mEq CR tablet 01-03 00:00: 00 Yes 40meq QD Take 2 tablets (40 mEq total) by mouth daily. [facility] Gabapentin 100 MG oral Capsule Gabapentin 100 MG oral Capsule 3-03 00:00: 00 Yes 2mg 2 mg. Jennifer man levETIRAcet am (KEPPRA) 500 MG tablet 12-28 11:08: 17 03-31 00:00 :00 No 250mg Q.5D Take 0.5 tablets (250 mg total) by mouth 2 (two) times daily Look-ali ke/Sound-a like medication . [facility] lactulose (CHRONULAC) 20 gram/30 mL soln solution 12-26 00:00: 00 01-25 23:59 :00 No 20g Q.[id number] 3D Take 30 mLs (20 g total) by mouth 3 (three) times daily for 30 days. [facility] ondansetron HCl 8 mg tablet 12-13 00:00: 00 Yes 1mg Arun [place] folic acid (FOLVITE) 1 MG tablet 12-13 00:00: 00 12-13 23:59 :00 No 1mg QD Take 1 tablet (1 mg total) by mouth daily. [facility] spironolact one (ALDACTONE) 50 MG tablet 12-13 00:00: 00 12-13 23:59 :00 No 50mg QD Take 1 tablet (50 mg total) by mouth daily. [facility] furosemide (LASIX) 20 MG tablet 12-13 00:00: 00 04-12 00:00 :00 No 20mg QD Take 1 tablet (20 mg total) by mouth daily. [facility] thiamine (B-1) 100 mg/mL injection 12-13 00:00: 00 12-21 00:00 :00 No 100mg QD Infuse 1 mL (100 mg total) into a venous catheter daily. [facility] promethazin e (PHENERGAN) 25 MG tablet - 00:00: 00 12-28 00:00 :00 No 25mg Take 1 tablet (25 mg total) by mouth every 6 (six) hours as needed. [facility] ondansetron HCl 8 mg tablet 11-06 00:00: 00 Yes 1mg Arun [place] ondansetron (ZOFRAN) 8 MG tablet 11-06 00:00: 00 12-21 00:00 :00 No 8mg Take 1 tablet (8 mg total) by mouth every 8 (eight) hours as needed. [facility] phenazopyri dine 200 mg tablet 2023-10 00:00: 00 Yes 1mg Arun [place] nitrofurant oin monohydrate /macrocryst als 100 mg capsule 2023-10 00:00: 00 Yes 1mg Arun [place] albuterol sulfate HFA 90 mcg/actuati on aerosol inhaler 07-19 00:00: 00 Yes 12mcg/a ctuatio n [place]un [place] Keppra 1,000 mg tablet 07-19 00:00: 00 Yes 1mg [place]un [place] Levetiracet am (Keppra) 1000 MG oral Tablet Levetiracet am (Keppra) 1000 MG oral Tablet 07-19 00:00: 00 Yes 1000mg Q.5D Take 1 tablet (1,000 mg total) by mouth 2 times daily. Jennifer man ondansetron (ZOFRAN (PF)) injection 4 mg 07-10 21:00: 00 07-10 21:25 :00 No 4mg 4 mg, Slow IV Push, ONCE, 1 dose, On Tue07/10/24 at 1600, LIZETH [facility] morpHINE (4 mg/mL) injection 4 mg 07-10 21:00: 00 07-10 21:26 :00 No 4mg 4 mg, Slow IV Push, ONCE, 1 dose, On Tue07/10/24 at 1600, STAT [facility] lidocaine 5 % (700 mg/patch) patch 07-10 00:00: 00 Yes [id number] Apply one patch to most painful area up to 12 hours a day as needed for pain. PHARMACIST : dispense one box [facility] traMADoL 50 mg tablet 07-10 00:00: 00 Yes [id number] 50mg Take 1 tablet by mouth every 6 (six) hours as needed (pain). Indication s: acute pain [facility] predniSONE 20 mg tablet 07-10 00:00: 00 07-18 04:59 :00 No [id number] 40mg Take 2 tablets by mouth in the morning for 7 days. [facility] ondansetron (ZOFRAN (PF)) injection 4 mg 05-28 01:00: 00 05-28 01:18 :00 No 4mg 4 mg, Slow IV Push, ONCE, 1 dose, On Tue05/27/24 at 2000, LIZETH [facility] aspirin tablet 325 mg 05-28 00:45: 00 05-28 01:18 :00 No 325mg 325 mg, Oral, ONCE, 1 dose, On Tue05/27/24 at 1945, STAT [facility] sodium chloride (NS) injection 5 mL 05-28 00:34: 46 Yes 5mL 5 mL, Intravenou s, PRN, Starting on Tue05/27/24 at 1934, Until Discontinu ed, Routine, IV line flushing [facility] gabapentin 100 mg capsule 05-24 00:00: 00 Yes 2mg Arun Montenegro gabapentin (NEURONTIN) 100 MG capsule 05-24 00:00: 00 Yes 100mg Take 1 capsule (100 mg total) by mouth 2 (two) times daily as needed. [facility] cetirizine (ZyrTEC) 10 MG tablet 05-16 14:45: 13 03-04 00:00 :00 No 10mg QD Take 10 mg by mouth 1 (one) time each day. [facility] albuterol 108 (90 Base) MCG/ACT inhaler 05-16 14:45: 12 Yes 2{puff} Inhale 2 puffs 4 (four) times a day if needed. [facility] Keppra 1,000 mg tablet 05-15 00:00: 00 Yes 1mg Arun Montenegro amoxicillin -clavulanat e (AUGMENTIN) 875-125 mg per tablet 1 tablet 05-05 04:15: 00 05-05 03:34 :00 No 1{tbl} 1 tablet, Oral, ONCE, 1 dose, On Tue05/04/24 at 2315, LIZETH, Reason for Anti-Infec tive: Documented Infection, Documented Infection Site: HEENT, Duration of Therapy: Once (ED) [facility] azithromyci n (ZITHROMAX) tablet 500 mg 05-05 03:30: 00 05-05 03:34 :00 No 500mg 500 mg, Oral, ONCE, 1 dose, On Tue05/04/24 at 2230, LIZETH, Reason for Anti-Infec tive: Documented Infection, Documented Infection Site: HEENT, Duration of Therapy: Once (ED) [facility] dexamethaso ne sod phos PF injection 10 mg 05-05 03:18: 00 05-05 03:34 :00 No 10mg 10 mg, Intramuscu lar, ONCE, 1 dose, On Tue05/04/24 at 2230, 1 mL [facility] amoxicillin -clavulanat e 875-125 mg per tablet 05-04 00:00: 00 05-12 04:59 :00 No [id number] 1{tbl} Take 1 tablet by mouth in the morning and 1 tablet in the evening. Do all this for 7 days. [facility] azithromyci n 250 mg tablet 05-04 00:00: 00 05-09 04:59 :00 No [id number] 250mg Take 1 tablet by mouth in the morning for 4 days. [facility] levETIRAcet am 1,000 mg tablet 04-22 00:00: 00 Yes Take 1 tablet by mouth twice daily For seizures - do not miss doses [facility] ferrous sulfate 325 mg (65 mg iron) EC tablet 04-22 00:00: 00 Yes 325mg Take 1 tablet by mouth in the morning. [facility] ferrous sulfate 325 (65 Fe) MG EC tablet 04-22 00:00: 00 Yes 1{tbl} Take 1 tablet by mouth every morning. [facility] Cetirizine (ZyrTEC Allergy) 10 MG oral Tablet 01-02 15:52: 28 Yes [id number] 10mg Take 1 tablet (10 mg total) by mouth daily. Jennifer man Amoxicillin -Pot Clavulanate 200-28.5 MG oral Chewable Tablet 01-02 15:35: 24 01-02 00:00 :00 No 1{tbl} Take 1 tablet by mouth 2 times daily. Jennifer man Ascorbic Acid (Vitamin C) 500 MG oral Tablet 01-02 15:35: 12 Yes [id number] 500mg Take 1 tablet (500 mg total) by mouth 2 times daily. Jennifer man Ferrous Sulfate (Iron) 325 (65 Fe) MG oral Tablet 01-02 15:34: 55 Yes [id number] 325mg Take 1 tablet (325 mg total) by mouth 2 times daily. Jennifer man Albuterol HFA 108 (90 Base) MCG/ACT IN AERS 01-02 15:28: 47 Yes [id number] 2{puff} Q.25D Inhale 2 puffs into the lungs every 6 hours as needed for wheezing. Jennifer man Pantoprazol e Sodium 40 MG oral Tablet Delayed Response Pantoprazol e Sodium 40 MG oral Tablet Delayed Response 01-02 00:00: 00 Yes [id number] 40mg QD Take 1 tablet (40 mg total) by mouth daily. Jennifer man PAROXETINE HCL 20 MG ORAL TAB 03-22 00:00: 00 Yes Take 1 tab PO daily [facility] ONDANSETRON HCL 4 MG ORAL TAB 03-22 00:00: 00 Yes Take 1 tab q8hPRN [facility] LORAZEPAM 1 MG ORAL TAB 03-22 00:00: 00 Yes Take 1 tab PO BIDPRN [facility] ESGIC-PLUS 50-500-40 MG ORAL CAP 03-22 00:00: 00 Yes Take 1 tab q4hPRN [facility] ASPIRIN 81 MG ORAL TAB 03-22 00:00: 00 Yes Take 1 tab PO daily [facility] Immunizations Ordered Immunization Name Filled Immunization Name Date Status Comments Source RSV, Abrysvo RSV, Abrysvo 2025-06-24 00:00:00 Ashlyn Florez - External Shingles IM (Shingrix) Shingles IM (Shingrix) 2025-04-26 00:00:00 Ashlyn Villareal External Pneumococcal Vaccine, Conjugate 20 Pneumococcal Vaccine, Conjugate 20 2025-03-21 00:00:00 Ashlyn Villareal External Tdap- (Boostrix, Adacel) Tdap- (Boostrix, Adacel) 2025-03-21 00:00:00 Ashlyn Villareal External Hepatitis B 2025-03-17 00:00:00 Completed Hepatitis B- 2 Dose (HEPLISAV B) Hepatitis B- 2 Dose (HEPLISAV B) 2025-03-17 00:00:00 Ashlyn Villareal External Hepatitis B, Adolescent Or Pediatric Hepatitis B, Adolescent Or Pediatric 2025-03-17 00:00:00 Ashlyn Villareal External (Shingrix, Recombinant, Adjuvanted) Zoster Vaccine IM 2025-02-24 00:00:00 Completed [facility] Shingles IM (Shingrix) Shingles IM (Shingrix) 2025-02-24 00:00:00 Ashlyn Florez - External Hepatitis B 2025-02-13 00:00:00 Completed Hepatitis B, Adolescent Or Pediatric Hepatitis B, Adolescent Or Pediatric 2025-02-13 00:00:00 Ashlyn Villareal External INFLUENZA(FLULAVAL,F LUZONE,FLUARIX)_0.5m L(6MOS+)TRI(AEJ086) 2024-12-26 00:00:00 Completed [facility] AFLURIA TRIVALENT PF(0.5mL) AFLURIA TRIVALENT PF(0.5mL) 2024-12-26 00:00:00 Completed Jennifer Alanisybold - External Vital Signs Vital Name Observation Time Observation Value Comments S grady HEIGHT 2025-07-09 20:26:00 157.5 cm WEIGHT 2025-07-09 20:26:00 77.565 kg HEIGHT 2025-07-09 20:26:00 157.5 cm WEIGHT 2025-07-09 20:26:00 77.565 kg Systolic blood pressure 2025-06-27 14:20:00 123 mm[Hg] Jennifer Alanisybo ld - External Diastolic blood pressure 2025-06-27 14:20:00 68 mm[Hg] Jennifer Alanisybo ld - External Heart rate 2025-06-27 14:20:00 79 /min Cain fletcher Seybold - External Body temperature 2025-06-27 14:20:00 36.61 Fabiana Jennifer Alanisybold - External Respiratory rate 2025-06-27 14:20:00 19 /min Jennifer Alanisybold - External Body height 2025-06-27 14:20:00 157.5 cm Nadine cintron Seybold - External Body weight 2025-06-27 14:20:00 83.915 kg Nadine cintron Seybold - External BMI 2025-06-27 14:20:00 33.84 kg/m2 Nadine cintron Seybold - External Oxygen saturation in Arterial blood by Pulse oximetry 2025-06-27 14:20:00 99 /min Jennifer Alanisybo ld - External Systolic blood pressure 2025-06-26 00:49:00 113 mm[Hg] [facility] Diastolic blood pressure 2025-06-26 00:49:00 67 mm[Hg] [facility] Respiratory rate 2025-06-26 00:49:00 18 /min [facility] Heart rate 2025-06-26 00:10:00 79 /min [facility] Body temperature 2025-06-26 00:10:00 36.56 Fabiana [facility] Oxygen saturation in Arterial blood by Pulse oximetry 2025-06-26 00:10:00 100 /min [facility] Body height 2025-06-25 22:42:00 157.5 cm [facility] Body weight 2025-06-25 22:42:00 82.8 kg [facility] BMI 2025-06-25 22:42:00 33.39 kg/m2 [facility] HEIGHT 2025-06-03 19:12:00 157.5 cm WEIGHT 2025-06-03 [...] Systolic blood pressure 2024-07-10 23:00:00 123 mm[Hg] [facility] Diastolic blood pressure 2024-07-10 23:00:00 73 mm[Hg] [facility] Heart rate 2024-07-10 23:00:00 72 /min [facility] Body temperature 2024-07-10 23:00:00 36.67 Fabiana [facility] Respiratory rate 2024-07-10 23:00:00 16 /min [facility] Oxygen saturation in Arterial blood by Pulse oximetry 2024-07-10 23:00:00 97 /min [facility] Body height 2024-07-10 20:06:00 157.5 cm [facility] Body weight 2024-07-10 20:06:00 92.534 kg [facility] BMI 2024-07-10 20:06:00 37.31 kg/m2 [facility] Systolic blood pressure 2024-05-28 03:00:00 120 mm[Hg] [facility] Diastolic blood pressure 2024-05-28 03:00:00 76 mm[Hg] [facility] Heart rate 2024-05-28 03:00:00 79 /min [facility] Body temperature 2024-05-28 03:00:00 36.83 Fabiana [facility] Respiratory rate 2024-05-28 03:00:00 15 /min [facility] Oxygen saturation in Arterial blood by Pulse oximetry 2024-05-28 03:00:00 96 /min [facility] Body height 2024-05-28 00:36:00 154.9 cm [facility] Body weight 2024-05-28 00:36:00 92.534 kg [facility] BMI 2024-05-28 00:36:00 38.55 kg/m2 [facility] Systolic blood pressure 2024-05-05 03:38:07 139 mm[Hg] [facility] Diastolic blood pressure 2024-05-05 03:38:07 78 mm[Hg] [facility] Heart rate 2024-05-05 03:38:07 71 /min [facility] Body temperature 2024-05-05 03:38:07 37.11 Fabiana [facility] Respiratory rate 2024-05-05 03:38:07 15 /min [facility] Oxygen saturation in Arterial blood by Pulse oximetry 2024-05-05 03:38:07 99 /min [facility] Body height 2024-05-04 23:20:00 160 cm [facility] Body weight 2024-05-04 23:20:00 99.791 kg [facility] BMI 2024-05-04 23:20:00 38.97 kg/m2 [facility] Systolic blood pressure 2024-01-03 21:23:00 129 mm[Hg] Jennifer Bowen ld - External Diastolic blood pressure 2024-01-03 21:23:00 65 mm[Hg] Jennifer Rincono ld - External Heart rate 2024-01-03 21:23:00 96 /min Cain fletcher Seybkatherine - External Body temperature 2024-01-03 21:23:00 37.67 Fabiana Jennifer Alanisybold - External Respiratory rate 2024-01-03 21:23:00 21 /min Jennifer Alanisybold - External Body height 2024-01-03 21:23:00 157.5 cm Nadine cintron Seybold - External Body weight 2024-01-03 21:23:00 92.987 kg Nadine cintron Seybold - External BMI 2024-01-03 21:23:00 37.49 kg/m2 Nadine cintron Seybold - External Oxygen saturation in Arterial blood by Pulse oximetry 2024-01-03 21:23:00 98 /min Jennifer Rincono ld - External Systolic blood pressure 2025-07-09 23:30:00 108 mm[Hg] [facility] Diastolic blood pressure 2025-07-09 23:30:00 62 mm[Hg] [facility] Heart rate 2025-07-09 23:30:00 80 /min [facility] Respiratory rate 2025-07-09 23:30:00 17 /min [facility] Oxygen saturation in Arterial blood by Pulse oximetry 2025-07-09 23:30:00 98 /min [facility] Body temperature 2025-07-09 20:26:00 36.56 Fabiana [facility] Body height 2025-07-09 20:26:00 157.5 cm [facility] Body weight 2025-07-09 20:26:00 77.565 kg [facility] BMI 2025-07-09 20:26:00 31.28 kg/m2 [facility] Body Temperature 2025-06-24 13:54:00 98.00 degrees Arun Montenegro Heart Rate 2025-06-24 13:54:00 88.00 /min Amee Montenegro Respiratory Rate 2025-06-24 13:54:00 16.00 /min Arun Montenegro BP Systolic 2025-06-24 13:54:00 Step hen Abby Montenegro BP Diastolic 2025-06-24 13:54:00 Giuseppe phen F Lan Weight Measured 2025-06-24 13:54:00 183.80 pounds Arun Montenegro Height Measured 2025-06-24 13:54:00 62.00 inches Arun Montenegro Systolic blood pressure 2025-06-04 02:19:00 136 mm[Hg] [facility] Diastolic blood pressure 2025-06-04 02:19:00 71 mm[Hg] [facility] Heart rate 2025-06-04 02:19:00 71 /min [facility] Body temperature 2025-06-04 02:19:00 36.67 Fabiana [facility] Respiratory rate 2025-06-04 02:19:00 16 /min [facility] Oxygen saturation in Arterial blood by Pulse oximetry 2025-06-04 02:19:00 98 /min [facility] Body height 2025-06-03 19:12:00 157.5 cm [facility] Body weight 2025-06-03 19:12:00 77.565 kg [facility] BMI 2025-06-03 19:12:00 31.28 kg/m2 [facility] BP Systolic 2025-03-18 10:39:00 111 mm[Hg] Step hen Abby Montenegro BP Diastolic 2025-03-18 10:39:00 73 mm[Hg] Giuseppe phen Abby Montenegro Weight Measured 2025-03-18 10:39:00 192.80 pounds Arun Montenegro Height Measured 2025-03-18 10:39:00 62.00 inches Arun Montenegro Body Temperature 2025-03-18 10:39:00 97.60 degrees Arun Montenegro Heart Rate 2025-03-18 10:39:00 69.00 /min Amee en F Lan Respiratory Rate 2025-03-18 10:39:00 16.00 /min rAun Montenegro Systolic blood pressure 2025-03-12 10:37:00 113 mm[Hg] [facility] Diastolic blood pressure 2025-03-12 10:37:00 75 mm[Hg] [facility] Heart rate 2025-03-12 10:37:00 68 /min [facility] Body temperature 2025-03-12 10:37:00 36.28 Fabiana [facility] Respiratory rate 2025-03-12 10:37:00 18 /min [facility] Body height 2025-03-12 10:37:00 157.5 cm [facility] Body weight 2025-03-12 10:37:00 81.511 kg [facility] BMI 2025-03-12 10:37:00 32.87 kg/m2 [facility] Oxygen saturation in Arterial blood by Pulse oximetry 2025-03-12 10:37:00 100 /min [facility] Systolic blood pressure 2025-02-28 13:20:00 112 mm[Hg] [facility] Diastolic blood pressure 2025-02-28 13:20:00 79 mm[Hg] [facility] Heart rate 2025-02-28 13:20:00 81 /min [facility] Body temperature 2025-02-28 13:20:00 36.5 Fabiana [facility] Respiratory rate 2025-02-28 13:20:00 16 /min [facility] Oxygen saturation in Arterial blood by Pulse oximetry 2025-02-28 13:20:00 99 /min [facility] Body height 2025-02-28 11:25:00 157.5 cm [facility] Body weight 2025-02-28 11:25:00 78.2 kg [facility] BMI 2025-02-28 11:25:00 31.53 kg/m2 [facility] BP Systolic 2025-01-03 14:37:00 131 mm[Hg] Step cynthia Montenegro BP Diastolic 2025-01-03 14:37:00 82 mm[Hg] Giuseppe phen Abby Montenegro Weight Measured 2025-01-03 14:37:00 185.60 pounds Arun Montenegro Height Measured 2025-01-03 14:37:00 62.00 inches Arun Montenegro Body Temperature 2025-01-03 14:37:00 Arun Abby Lan Heart Rate 2025-01-03 14:37:00 97.00 /min Amee sanders Abby Lan Respiratory Rate 2025-01-03 14:37:00 19.00 /min Arun F Lan Systolic blood pressure 2024-12-28 07:46:00 135 mm[Hg] [facility] Diastolic blood pressure 2024-12-28 07:46:00 73 mm[Hg] [facility] Heart rate 2024-12-28 07:46:00 99 /min [facility] Body temperature 2024-12-28 07:46:00 36.78 Fabiana [facility] Respiratory rate 2024-12-28 07:46:00 18 /min [facility] Oxygen saturation in Arterial blood by Pulse oximetry 2024-12-28 07:46:00 96 /min [facility] Body height 2024-12-26 08:53:00 157.5 cm [facility] Body weight 2024-12-26 08:53:00 88.2 kg [facility] BMI 2024-12-26 08:53:00 35.56 kg/m2 [facility] BP Systolic 2024-11-06 15:36:00 91 mm[Hg] Step hen F Lan BP Diastolic 2024-11-06 15:36:00 49 mm[Hg] Giuseppe phen F Lan Weight Measured 2024-11-06 15:36:00 200.20 pounds Arun F Lan Height Measured 2024-11-06 15:36:00 62.00 inches Arun F [place] Body Temperature 2024-11-06 15:36:00 99.60 degrees Arun [...] Respiratory Rate 2024-05-24 16:10:00 16.00 /min Arun F Lan BP Systolic 2024-05-24 16:10:00 129 mm[Hg] Step hen F Lan BP Diastolic 2024-05-24 16:10:00 86 mm[Hg] Giuseppe phen F Lan Weight Measured 2024-05-24 16:10:00 204.80 pounds Arun F Lan Height Measured 2024-05-24 16:10:00 62.00 inches Arun F Lan Body Temperature 2024-05-24 16:10:00 98.70 degrees Arun F Lan BP Systolic 2024-05-15 15:41:00 126 mm[Hg] Step hen F Lan BP Diastolic 2024-05-15 15:41:00 76 mm[Hg] Giuseppe phen F Lan Weight Measured 2024-05-15 15:41:00 206.00 pounds Arun F Lan Height Measured 2024-05-15 15:41:00 62.00 inches Arun F Lan Body Temperature 2024-05-15 15:41:00 98.20 degrees Arun F Lan Heart Rate 2024-05-15 15:41:00 74.00 /min Amee en F Lan Respiratory Rate 2024-05-15 15:41:00 18.00 /min Arun Montenegro Procedures Procedure Date / Time Performed Performing Clinician Source ED ECG INTERPRETATION 2025-07-09 22:38:53 [facility] HIGH SENSITIVITY TROPONIN I 2025-07-09 21:59:00 [facility] XR CHEST 1 VIEW PORTABLE / BEDSIDE 2025-07-09 21:38:00 [facility] COMPREHENSIVE METABOLIC PANEL 2025-07-09 21:17:00 [facility] & AUTO DIFFERENTIAL 2025-07-09 21:17:00 [facility] LIPASE 2025-07-09 21:17:00 [facility] URINALYSIS WITH MICROSCOPIC IF INDICATED 2025-07-09 21:17:00 [facility] URINALYSIS MICROSCOPIC 2025-07-09 21:17:00 [facility] CBC W/PLT COUNT & AUTO DIFFERENTIAL 2025-07-09 21:17:00 [facility] ECG 12-LEAD 2025-07-09 21:16:40 [facility] EKG-SCANNED 2025-07-09 00:00:00 Provider, De fault Scanning [facility] US ABDOMEN LIMITED 2025-07-05 10:04:00 Michelle Pond [facility] URINALYSIS 2025-06-25 23:10:00 Tyrel Pineda [facility] LIPASE 2025-06-25 22:59:00 Tyrel Pineda [facility] AMMONIA, PLASMA 2025-06-25 22:59:00 Tyrel Pineda [facility] COMP. METABOLIC PANEL ([id number]) 2025-06-25 22:59:00 Tyrel Pineda [facility] ETHANOL 2025-06-25 22:59:00 Tyrel Pineda [facility] CBC WITH DIFF 2025-06-25 22:59:00 Tyrel Pineda [facility] PROTHROMBIN TIME / INR 2025-06-25 22:59:00 Vladislav Pineda [facility] INFLUENZA A/B RSV COVID NAAT 2025-06-25 22:59:00 Tyrel Pineda [facility] BILIRUBIN, DIRECT 2025-06-20 14:29:00 Le, [facility] CBC W/PLT COUNT & AUTO DIFFERENTIAL 2025-06-20 14:29:00 Le, [facility] COMPREHENSIVE METABOLIC PANEL 2025-06-20 14:29:00 Le, [facility] PROTHROMBIN TIME/INR 2025-06-20 [facility] AUTO DIFFERENTIAL 2025-06-20 14:29:00 Le, [facility] HIGH SENSITIVITY TROPONIN I 2025-06-03 23:25:00 Meli [facility] CT ABDOMEN/PELVIS WITHOUT IV CONTRAST 2025-06-03 22:52:24 [facility] 2025-06-03 20:30:14 Unknown, Hl7 Doctor C [facility] ECG 12-LEAD 2025-06-03 20:30:14 Senthil Garrison [facility] ECG 12-LEAD 2025-06-03 20:30:14 Unknown, Hl7 Doctor C [facility] COMPREHENSIVE METABOLIC PANEL 2025-06-03 20:24:00 Meli [facility] CBC W/PLT COUNT & AUTO DIFFERENTIAL 2025-06-03 20:24:00 [facility] HIGH SENSITIVITY TROPONIN I 2025-06-03 20:24:00 [facility] CBC W/PLT COUNT & AUTO DIFFERENTIAL 2025-06-03 20:24:00 [facility] XR CHEST 1 VIEW PORTABLE / BEDSIDE 2025-06-03 19:52:16 [facility] URINAL[facility] W/ REFLEX URINE CULTURE 2025-06-03 19:20:00 Meli Fithian [facility] EKG-SCANNED 2025-06-03 00:00:00 Provider, Chavez [facility] CT ABDOMEN/PELVIS WITH IV CONTRAST 2025-05-15 23:26:00 Mamie [facility] ED ECG INTERPRETATION 2025-05-15 22:51:18 Luis Hatch [facility] ECG 12-LEAD 2025-05-15 22:45:08 Unknown, Hl7 Doctor C [facility] ECG 12-LEAD 2025-05-15 22:45:08 Mamie [facility] ECG 12-LEAD 2025-05-15 22:45:08 Unknown, Hl7 Doctor C [facility] CBC W/PLT COUNT & AUTO DIFFERENTIAL 2025-05-15 22:31:00 Mamie [facility] BASIC METABOLIC PANEL 2025-05-15 22:31:00 Luis Hatch [facility] HEPATIC FUNCTION PANEL 2025-05-15 22:31:00 Jarvis Hatch [facility] LIPASE 2025-05-15 22:31:00 Mamie [facility] PROTHROMBIN TIME/INR 2025-05-15 22:31:00 Misty Hatch [facility] HIGH SENSITIVITY TROPONIN I 2025-05-15 22:31:00 Mamie [facility] CBC W/PLT COUNT & AUTO DIFFERENTIAL 2025-05-15 22:31:00 Mamie [facility] MAGNESIUM 2025-05-14 11:50:00 Salty [facility] ALPHA FETOPROTEIN (AFP), TUMOR MARKER 2025-05-14 11:50:00 Salty [facility] BILIRUBIN, DIRECT 2025-05-14 11:50:00 Michelle Pond [facility] CBC W/PLT COUNT & AUTO DIFFERENTIAL 2025-05-14 11:50:00 Salty [facility] COMPREHENSIVE METABOLIC PANEL 2025-05-14 11:50:00 Salty [facility] PROTHROMBIN TIME/INR 2025-05-14 11:50:00 Jalalita [facility] CBC W/PLT COUNT & AUTO DIFFERENTIAL 2025-05-14 11:50:00 Salty [facility] US ABDOMEN LIMITED 2025-05-03 09:24:57 Araceli Artis [facility] PHOSPHATIDYLETHANOL, BLOOD 2025-05-03 05:22:00 Nitin Isaacs [facility] IGG SUBCLASS-4 ONLY 2025-05-03 05:22:00 Denae Moss [facility] BASIC METABOLIC PANEL 2025-05-03 05:22:00 Martin Dickens [facility] CBC (HEMOGRAM ONLY) 2025-05-03 05:22:00 Maricarmen Dickens [facility] BASIC METABOLIC PANEL 2025-05-02 03:39:00 Sheila Herrera [facility] HEPATIC FUNCTION PANEL 2025-05-02 03:39:00 Gaby Herrera [facility] PROTHROMBIN TIME/INR 2025-05-02 03:39:00 Luh Herrera [facility] MAGNESIUM 2025-05-02 03:39:00 Luh Herrera Elodia [facility] CBC W/PLT COUNT & AUTO DIFFERENTIAL 2025-05-02 03:39:00 Luh Herrera [facility] CBC W/PLT COUNT & AUTO DIFFERENTIAL 2025-05-02 03:39:00 Luh Herrera [facility] US ABDOMEN LIMITED 2025-05-01 21:50:00 Jammie [facility] CT ABDOMEN/PELVIS WITHOUT IV CONTRAST 2025-05-01 19:24:14 Jammie [facility] ECG 12-LEAD 2025-05-01 17:38:23 Unknown, Hl7 Doctor C [facility] ECG 12-LEAD 2025-05-01 17:38:23 Jammie [facility] ECG 12-LEAD 2025-05-01 17:38:23 Unknown, Hl7 Doctor Douglas [facility] BLOOD CULTURE 2025-05-01 17:31:00 Jammie [facility] BLOOD CULTURE 2025-05-01 17:17:00 Jammie [facility] CBC W/PLT COUNT & AUTO DIFFERENTIAL 2025-05-01 17:17:00 Jammie [facility] LACTIC ACID, VENOUS 2025-05-01 17:17:00 Greg Cline [facility] PROTHROMBIN TIME/INR 2025-05-01 17:17:00 Jonathan Cline sa [facility] APTT 2025-05-01 17:17:00 Jammie [facility] LIPASE 2025-05-01 17:17:00 Jammie [facility] BASIC METABOLIC PANEL 2025-05-01 17:17:00 Durga Cline [facility] HEPATIC FUNCTION PANEL 2025-05-01 17:17:00 Morris Cline [facility] CBC W/PLT COUNT & AUTO DIFFERENTIAL 2025-05-01 17:17:00 Jammie [facility] URINALYSIS W/ REFLEX URINE CULTURE 2025-05-01 16:47:00 Jammie [facility] EKG-SCANNED 2025-05-01 00:00:00 Provider, De arnel Scanning [facility] BASIC METABOLIC PANEL 2025-04-11 03:49:00 Nieves [facility] [facility] HEPATIC FUNCTION PANEL 2025-04-11 03:49:00 Nieves, [facility] PROTHROMBIN TIME/INR 2025-04-11 03:49:00 Nieves [facility] MAGNESIUM 2025-04-11 03:49:00 Nieves, [facility] PHOSPHORUS 2025-04-11 03:49:00 Nieves, [facility] CBC W/PLT COUNT & AUTO DIFFERENTIAL 2025-04-11 03:49:00 Nieves, [facility] CBC W/PLT COUNT & AUTO DIFFERENTIAL 2025-04-11 03:49:00 Nieves [facility] CT BRAIN WITHOUT IV CONTRAST 2025-04-11 02:04:00 Peter [facility] HIGH SENSITIVITY TROPONIN I 2025-04-11 01:33:00 Peter [facility] ECG 12-LEAD 2025-04-11 01:31:05 Unknown, Hl7 Doctor C [facility] ECG 12-LEAD 2025-04-11 01:31:05 Peter [facility] ECG 12-LEAD 2025-04-11 01:31:05 Unknown, Hl7 Doctor C [facility] US ABDOMEN LIMITED 2025-04-10 22:18:00 [facility] PROTHROMBIN TIME/INR 2025-04-10 18:56[facility] 2025-04-10 18:56:00 [facility] CBC W/PLT COUNT & AUTO DIFFERENTIAL 2025-04-10 18:41:00 [facility] COMPREHENSIVE METABOLIC PANEL 2025-04-10 18:41:00 [facility] LIPASE 2025-04-10 18:41:00 [facility] URINALYSIS W/ REFLEX URINE CULTURE 2025-04-10 18:41:00 [facility] BILIRUBIN, TOTAL AND DIRECT 2025-04-10 18:41:[facility] & AUTO DIFFERENTIAL 2025-04-10 18:41:00 [facility] EKG-SCANNED 2025-04-10 00:00:00 Provider, De fault Scanning [facility] CBC (HEMOGRAM ONLY) 2025-03-31 05:18:00 Fermín Null [facility] BASIC METABOLIC PANEL 2025-03-31 05:18:00 Jennifer [facility] CBC (HEMOGRAM ONLY) 2025-03-30 04:50:00 Fermín Null [facility] BASIC METABOLIC PANEL 2025-03-30 04:50:00 [facility] 2025-03-30 04:50:00 Glenn Triston liu [facility] RESPIRATORY PANEL 2025-03-29 17:46:00 Kaity Fox [facility] LACTIC ACID, VENOUS 2025-03-29 17:43:00 Radha Ambriz [facility] BLOOD CULTURE 2025-03-29 12:12:00 [place] Ambriz [facility] HEPATIC FUNCTION PANEL 2025-03-29 12:12:00 Triston Ambriz [facility] PROTHROMBIN TIME/INR 2025-03-29 12:12:00 Lucho Ambriz [facility] C-REACTIVE PROTEIN 2025-03-29 12:12:00 Denver Ambriz [facility] XR CHEST 1 VIEW PORTABLE / BEDSIDE 2025-03-29 11:15:00 Denver Ambriz [facility] CBC (HEMOGRAM ONLY) 2025-03-29 05:33:00 Fermín Null [facility] BASIC METABOLIC PANEL 2025-03-29 05:33:00 Jennifer [facility] MR ABDOMEN WITHOUT IV CONTRAST MRCP 2025-03-28 19:29:26 Denver Ambriz [facility] CBC (HEMOGRAM ONLY) 2025-03-28 06:55:00 Fermín Null C [facility] BASIC METABOLIC PANEL 2025-03-28 06:55:00 Jennifer[facility] PHOSPHATIDYLETHANOL, BLOOD 2025-03-27 06:10:00 P Braydon bermeo [facility] CBC (HEMOGRAM ONLY) 2025-03-27 06:10:00 JenniferFermín C [facility] BASIC METABOLIC PANEL 2025-03-27 06:10:00 Jennifre [facility] HEPATIC FUNCTION PANEL 2025-03-27 06:10:00 RodriguezBraydon [facility] CT ABDOMEN/PELVIS WITHOUT IV CONTRAST 2025-03-26 16:50:00 Fermín Null [facility] BASIC METABOLIC PANEL 2025-03-26 09:46:00 Ra mando Lay [facility] HEPATIC FUNCTION PANEL 2025-03-26 09:46:00 Kelsey Lay [facility] MAGNESIUM 2025-03-26 09:46:00 Windy Lay [facility] HEMOGLOBIN A1C 2025-03-26 04:42:00 Widny Lay [facility] PROTHROMBIN TIME/INR 2025-03-26 04:42:00 Angel Lay [facility] CBC W/PLT COUNT & AUTO DIFFERENTIAL 2025-03-26 04:42:00 Windy Lay [facility] CBC W/PLT COUNT & AUTO DIFFERENTIAL 2025-03-26 04:42:00 Windy Lay [facility] BLOOD CULTURE 2025-03-25 19:30:00 Donna Sadler [facility] LACTIC ACID, VENOUS 2025-03-25 19:30:00 Ajit Sadler [facility] US DOPPLER 2025-03-25 17:09:00 Donna Sdaler [facility] US ABDOMEN COMPLETE 2025-03-25 17:09:00 Ajit Sadler [facility] URINALYSIS W/ REFLEX URINE CULTURE 2025-03-25 15:36:00 Donna Sadler [facility] CBC W/PLT COUNT & AUTO DIFFERENTIAL 2025-03-25 15:28:00 Donna Sadler [facility] LIPASE 2025-03-25 15:28:00 Donna Sadler [facility] PROTHROMBIN TIME/INR 2025-03-25 15:28:00 Yo Sadler [facility] BASIC METABOLIC PANEL 2025-03-25 15:28:00 Kourtney Sadler [facility] HEPATIC FUNCTION PANEL 2025-03-25 15:28:00 Janie Sadler [facility] CBC W/PLT COUNT & AUTO DIFFERENTIAL 2025-03-25 15:28:00 Donna Sadler [facility] AMYLASE 2025-03-12 13:11:00 Provider, No t In [facility] PHOSPHATIDYLETHANOL, BLOOD 2025-03-12 13:11:00 Cholank eril, [facility] BILIRUBIN, DIRECT 2025-03-12 13:11:00 Cholankeril, Paul rge [facility] CBC W/PLT COUNT & AUTO DIFFERENTIAL 2025-03-12 13:11:00 Cholankeril, [facility] COMPREHENSIVE METABOLIC PANEL 2025-03-12 13:11:00 [facility] PROTHROMBIN TIME/INR 2025-03-12 13:11:00 Cholankeril, [facility] LIPASE 2025-03-12 13:11:00 Michelle Pond [facility] NICOTINE METABOLITE SCREEN (QUEST) 2025-03-12 13:11:00 Provider, Not In [facility] DRUG MONITORING TEMPLATE 2025-03-12 13:11:00 Pro vider, Not In [facility] CBC W/PLT COUNT & AUTO DIFFERENTIAL 2025-03-12 13:11:00 Cholankeril, [facility] CBC W/PLT COUNT & AUTO DIFFERENTIAL 2025-03-07 08:01:00 Lynn Edward [facility] COMPREHENSIVE METABOLIC PANEL 2025-03-07 08:01:00 Lynn Edward [facility] CBC W/PLT COUNT & AUTO DIFFERENTIAL 2025-03-07 08:01:00 Lynn Edward [facility] CT ABDOMEN/PELVIS WITH IV CONTRAST 2025-03-05 23:52:46 Jana Justice [facility] URINALYSIS W/ REFLEX URINE CULTURE 2025-03-05 21:59:00 [facility] 2025-03-05 19:29:00 [facility] HEPATIC FUNCTION PANEL 2025-03-05 19:29:00 Elecin [facility] LIPASE 2025-03-05 19:29:00 Elecin [facility] CBC W/PLT COUNT & AUTO DIFFERENTIAL 2025-03-05 19:29:00 Elecin [facility] CBC W/PLT COUNT & AUTO DIFFERENTIAL 2025-03-05 19:29:00 [facility] REPORT OF PROCEDURE - ENDOSCOPY URL 2025-02-28 13:02:50 Le [facility] REPORT OF PROCEDURE - ENDOSCOPY URL 2025-02-28 13:02:10 Le [facility] TISSUE EXAM 2025-02-28 12:23:00 Le [facility] [place] COLONOSCOPY W/BIOPSY SINGLE/MULTIPLE 2025-02-28 12:13:00 Le, [facility] [place] EGD TRANSORAL BIOPSY SINGLE/MULTIPLE 2025-02-28 12:13:00 Le, [facility] CT BRAIN WITHOUT IV CONTRAST 2025-02-26 15:02:00 Angie Argueta [facility] BASIC METABOLIC PANEL 2025-02-16 05:22:00 Rodriguez, [facility] CBC W/PLT COUNT & AUTO DIFFERENTIAL 2025-02-16 05:22:00 Rodriguez, [facility] HEPATIC FUNCTION PANEL 2025-02-16 05:22:00 RodriguezJennifer [facility] CBC W/PLT COUNT & AUTO DIFFERENTIAL 2025-02-16 05:22:00 Rodriguez, [facility] CBC W/PLT COUNT & AUTO DIFFERENTIAL 2025-02-15 05:04:00 Chanell Michael [facility] COMPREHENSIVE METABOLIC PANEL 2025-02-15 05:04:00 Chanell Michael [facility] MAGNESIUM 2025-02-15 05:04:00 Burton Michael [facility] PHOSPHORUS 2025-02-15 05:04:00 Burton Michael [facility] TRIGLYCERIDES 2025-02-15 05:04:00 Burton Michael [facility] IGG SUBCLASS-4 ONLY 2025-02-15 05:04:00 Chanell Lu [facility] CBC W/PLT COUNT & AUTO DIFFERENTIAL 2025-02-15 05:04:00 RoniAdelfo smithvirgilio Jasen [facility] CT ABDOMEN/PELVIS WITH IV CONTRAST 2025-02-14 21:25:00 Romelia [facility] URINALYSIS W/ REFLEX URINE CULTURE 2025-02-14 20:46:00 Romelia [facility] LACTIC ACID, VENOUS 2025-02-14 20:38:00 Oleg León [facility] PROTHROMBIN TIME/INR 2025-02-14 20:38:00 Romelia maribel [facility] LIPASE 2025-02-14 19:58:00 Romelia [facility] CBC W/PLT COUNT & AUTO DIFFERENTIAL 2025-02-14 19:58:00 Romelia [facility] COMPREHENSIVE METABOLIC PANEL 2025-02-14 19:58:00 Wilfred [facility] PT/APTT 2025-02-14 19:58:00 Wilfred [facility] CBC W/PLT COUNT & AUTO DIFFERENTIAL 2025-02-14 19:58:00 Romelia [facility] US ABDOMEN LIMITED 2025-02-14 19:18:00 Romelia [facility] BLOOD GAS, ARTERIAL 2025-02-13 14:24:00 Jordan Argueta [facility] URINALYSIS W/ REFLEX URINE CULTURE 2025-02-13 14:06:00 Angie Argueta [facility] MM DIGITAL MAMMO SCREEN WITH JOYCE BILATERAL 2025-02-13 13:18:48 Angie Argueta [facility] OH R & L HRT CATH WINJX HRT ART& L VENTR IMG 2025-02-07 09:28:00 Gustabo Vazquez [facility] ECG 12-LEAD 2025-02-07 08:40:13 Unknown, Hl7 Doctor C [facility] ECG 12-LEAD 2025-02-07 08:40:13 Laquindanum, [facility] ECG 12-LEAD 2025-02-07 08:40:13 Unknown, Hl7 Doctor [facility] TYPE AND SCREEN, AUTOMATED 2025-02-07 08:12:00 Laquind wayne, [facility] VASCULAR DIAGRAM -SCAN 2025-02-07 00:00:00 Provi chandana, Default Scanning [facility] CARDIAC CATH REPORT - SCAN 2025-02-07 00:00:00 P rovider, Default Scanning [facility] NM MYOCARDIAL PERFUSION SPECT, PHARM 2025-02-01 13:15:43 Ellie [facility] CAROTID DOPPLER BILATERAL 2025-02-01 13:07:15 Angie Coppola [facility] ECG 12-LEAD 2025-02-01 12:30:31 Unknown, Hl7 Doctor [facility] ECG 12-LEAD 2025-02-01 12:30:31 Unknown, Hl7 [facility] C [facility] ECG 12-LEAD 2025-02-01 12:30:31 Unknown, 7 [facility] ECG 12-LEAD 2025-02-01 10:11:00 Unknown, Hl7 Doctor C [facility] ECG 12-LEAD 2025-02-01 10:11:00 Unknown, Hl7 Doctor C [facility] ECG 12-LEAD 2025-02-01 10:11:00 Unknown, Hl7 Doctor C [facility] ECG 12-LEAD 2025-02-01 10:10:47 Unknown, Hl7 Doctor C [facility] ECG 12-LEAD 2025-02-01 10:10:47 Unknown, Hl7 Doctor C [facility] ECG 12-LEAD 2025-02-01 10:10:47 Unknown, 7 Doctor C [facility] TREADMILL TOLERANCE(NON-NUCLEAR TREADMILL) 2025-02-01 10:04:55 Unknown, Hl7 Doctor [facility] ECG 12-LEAD 2025-02-01 09:56:08 Unknown, Hl7 Doctor C [facility] ECG 12-LEAD 2025-02-01 09:56:08 Unknown, Hl7 Doctor C [facility] ECG 12-LEAD 2025-02-01 09:56:08 Unknown, Hl7 Doctor C [facility] ECG 12-LEAD 2025-02-01 09:54:19 Ellie [facility] ECG 12-LEAD 2025-02-01 09:54:19 Unknown, Hl7 Doctor C [facility] ECG 12-LEAD 2025-02-01 09:54:19 Unknown, Hl7 Doctor C [facility] ECHO W CONTRAST & DOPPLER 2025-02-01 09:20:48 Angie Coppola [facility] BLOOD GAS, ARTERIAL 2025-02-01 08:20:00 Jordan Argueta [facility] CT ABDOMEN/PELVIS WITH IV CONTRAST 2025-01-29 23:45:20 Raymundo [facility] CBC W/PLT COUNT & AUTO DIFFERENTIAL 2025-01-29 19:51:00 Raymundo [facility] COMPREHENSIVE METABOLIC PANEL 2025-01-29 19:51:00 Raymundo [facility] LIPASE 2025-01-29 19:51:00 Raymundo [facility] CBC W/PLT COUNT & AUTO DIFFERENTIAL 2025-01-29 19:51:00 Raymundo [facility] URINALYSIS W/ REFLEX URINE CULTURE 2025-01-29 19:47:00 Raymundo [facility] XR DXA BONE DENSITY STUDY 2025-01-23 15:30:00 Mina levy [facility] XR CHEST 2 VIEWS 2025-01-23 14:49:39 Angie Argueta [facility] XR MANDIBLE 4 VIEWS MIN 2025-01-23 14:49:06 Ellie [facility] ECG 12-LEAD 2025-01-23 11:37:25 Taylor Gustabo Cole [facility] ECG 12-LEAD 2025-01-23 11:37:25 Unknown, Hl7 Doctor C [facility] ECG 12-LEAD 2025-01-23 11:37:25 Unknown, Hl7 Doctor C [facility] FIBRINOGEN 2025-01-23 07:06:00 Angie Argueta [facility] COMPREHENSIVE METABOLIC PANEL 2025-01-23 07:06:00 Ellie [facility] BILIRUBIN, DIRECT 2025-01-23 07:06:00 Ellie [facility] GAMMA GLUTAMYL TRANSFERASE (GGT) 2025-01-23 07:06:00 Ellie [facility] CALCIUM, IONIZED 2025-01-23 07:06:00 Ellie [facility] MAGNESIUM 2025-01-23 07:06:00 Angie Argueta [facility] PHOSPHORUS 2025-01-23 07:06:00 Ellie [facility] PROTHROMBIN TIME/INR 2025-01-23 07:06:00 Christi Argueta se [facility] APTT 2025-01-23 07:06:00 Ellie [facility] CBC W/PLT COUNT & AUTO DIFFERENTIAL 2025-01-23 07:06:00 Angie Argueta [facility] TRANSFERRIN 2025-01-23 07:06:00 Angie Argueta [facility] VITAMIN D, 25-HYDROXY 2025-01-23 07:06:00 Kelsey Argueta [facility] LIPID PANEL 2025-01-23 07:06:00 Ellie [facility] HEMOGLOBIN A1C 2025-01-23 07:06:00 Angie Argueta [facility] DRUG SCREEN, URINE, TRANSPLANT 2025-01-23 07:06:00 Angie Argueta [facility] ETHANOL 2025-01-23 07:06:00 Ellie [facility] PHOSPHATIDYLETHANOL, BLOOD 2025-01-23 07:06:00 Chelle dave [facility] CARBOHYDRATE ANTIGEN 19-9 (CA 19-9) 2025-01-23 07:06:00 Ellie [facility] ZINC 2025-01-23 07:06:00 Ellie [facility] URIC ACID 2025-01-23 07:06:00 Ellie [facility] TSH 2025-01-23 07:06:00 Ellie [facility] T3 2025-01-23 07:06:00 Ellie [facility] T4 2025-01-23 07:06:00 Ellie [facility] HEPATITIS B CORE ANTIBODY, IGM 2025-01-23 07:06:00 Ellie [facility] HC LAB HIV-1 AG W/HIV-1&2 AB 2025-01-23 07:06:00 Ellie [facility] CYTOMEGALOVIRUS ANTIBODY, IGG 2025-01-23 07:06:00 Ellie [facility] EBV ANTIBODY, IGM 2025-01-23 07:06:00 Ellie [facility] RUBEOLA ANTIBODY IGG 2025-01-23 07:06:00 Christi Argueta se [facility] MUMPS ANTIBODY, IGG 2025-01-23 07:06:00 Jordan Argueta [facility] RUBELLA ANTIBODY, IGG 2025-01-23 07:06:00 Kelsey Argueta ise [facility] VARICELLA ZOSTER ANTIBODY, IGG 2025-01-23 07:06:00 Ellie [facility] CRYPTOCOCCAL ANTIGEN 2025-01-23 07:06:00 Christi Argueta se [facility] STRONGYLOIDES ANTIBODY, IGG 2025-01-23 07:06:00 Ellie [facility] TOXOPLASMA GONDII ANTIBODY, IGG 2025-01-23 07:06:00 Ellie [facility] COCCIDIOIDES ANTIBODIES 2025-01-23 07:06:00 Ellie [facility] RPR 2025-01-23 07:06:00 Ellie [facility] T SPOT TB 2025-01-23 07:06:00 [facility] URINALYSIS W/ MICROSCOPIC 2025-01-23 07:06:00 Mina levy [facility] CNAXP-1-[id number]\\, SERUM 2025-01-23 07:06:00 [facility] ALPHA-1 ANTITRYPSIN MUTATION ANALYSIS 2025-01-23 07:06:00 Ellie [facility] PSA 2025-01-23 07:06:00 [facility] TESTOSTERONE, FREE + TOTAL 2025-01-23 07:06:00 Chelle dave [facility] CBC W/PLT COUNT & AUTO DIFFERENTIAL 2025-01-23 07:06:00 [facility] NICOTINE METABOLITE SCREEN (QUEST) 2025-01-23 06:53:00 Provider, Not In [facility] DRUG MONITORING TEMPLATE 2025-01-23 06:53:00 Pro vider, Not In [facility] T-SPOT(R).TB (QUEST) 2025-01-23 06:53:00 Provide r, Not In [facility] US ABDOMEN LIMITED 2025-01-09 09:00:43 Sorin Murillo V [facility] COMPREHENSIVE METABOLIC PANEL 2024-12-28 04:09:00 Lynn Edward [facility] PROTHROMBIN TIME/INR 2024-12-28 04:09:00 Lynn Edward [facility] CBC (HEMOGRAM ONLY) 2024-12-28 04:09:00 Lynn Edward [facility] IMMUNOGLOBULIN G (IGG) 2024-12-27 04:07:00 Kuldip Lopes [facility] ANTI-NUCLEAR ANTIBODY (BRISSA) 2024-12-27 04:07:00 Kuldip Lopes [facility] COMPREHENSIVE METABOLIC PANEL 2024-12-27 04:07:00 Lynn Edward [facility] PROTHROMBIN TIME/INR 2024-12-27 04:07:00 Lynn Edward atel [facility] CBC (HEMOGRAM ONLY) 2024-12-27 04:07:00 Lynn Edward [facility] HEREDITARY HEMOCHROMATOSIS 2024-12-27 04:07:00 Kuldip Pringle [facility] US ABDOMEN LIMITED 2024-12-26 07:40:00 Chanell Michael A [facility] PHOSPHATIDYLETHANOL, BLOOD 2024-12-26 04:27:00 P Chanell zapata A [facility] CBC W/PLT COUNT & AUTO DIFFERENTIAL 2024-12-26 04:22:00 Chanell Michael A [facility] BASIC METABOLIC PANEL 2024-12-26 04:22:00 Bia Wagoner alawadio A [facility] HEPATIC FUNCTION PANEL 2024-12-26 04:22:00 Sandrita moran Nawazish A [facility] MAGNESIUM 2024-12-26 04:22:00 Burton Michael awagradysh A [facility] PHOSPHORUS 2024-12-26 04:22:00 Fernanda N awazish A [facility] PROTHROMBIN TIME/INR 2024-12-26 04:22:00 Bia Goldsmithwazish A [facility] CBC W/PLT COUNT & AUTO DIFFERENTIAL 2024-12-26 04:22:00 Chanell Michael A [facility] CT ABDOMEN/PELVIS WITH IV CONTRAST 2024-12-25 23:03:00 Dago Casillas [facility] BLOOD CULTURE 2024-12-25 19:09:00 Dago Casillas [facility] CBC W/PLT COUNT & AUTO DIFFERENTIAL 2024-12-25 18:59:00 Casillas, [facility] LACTIC ACID, VENOUS 2024-12-25 18:59:00 [facility], [facility] C [facility] COMPREHENSIVE METABOLIC PANEL 2024-12-25 18:59:00 [facility], [facility] PROTHROMBIN TIME/INR 2024-12-25 18:59:00 [facility], [facility] APTT 2024-12-25 18:59:00 Casillas, [facility] LIPASE 2024-12-25 18:59:00 Casillas, [facility] URINALYSIS W/ REFLEX URINE CULTURE 2024-12-25 18:59:00 [facility], [facility] CBC W/PLT COUNT & AUTO DIFFERENTIAL 2024-12-25 18:59:00 Casillas, [facility] BLOOD CULTURE 2024-12-25 18:59:00 Casillas, [facility] URINE CULTURE 2024-12-25 18:59:00 Casillas, [facility] US ABDOMEN LIMITED 2024-12-21 12:46:00 Sorin Murillo V [facility] BASIC METABOLIC PANEL 2024-12-21 06:31:00 [facility] HEPATIC FUNCTION PANEL 2024-12-21 06:31:00 [facility] CBC W/PLT COUNT & AUTO DIFFERENTIAL 2024-12-21 06:31:00 Trevon Renteria [facility] PROTHROMBIN TIME/INR 2024-12-21 06:31:00 Jasmin Anthony [facility] CBC W/PLT COUNT & AUTO DIFFERENTIAL 2024-12-21 06:31:00 [facility] XR ABDOMEN/KUB 1 VIEW PORTABLE 2024-12-20 13:41:31 Greta Renteria [facility] ABORH, MANUAL 2024-12-20 04:51:00 Karina Delgadillo [facility] BASIC METABOLIC PANEL 2024-12-20 04:23:00 [facility] HEPATIC FUNCTION PANEL 2024-12-20 04:23:00 [facility] CBC W/PLT COUNT & AUTO DIFFERENTIAL 2024-12-20 04:23:00 [facility] PROTHROMBIN TIME/INR 2024-12-20 04:23:00 Raj [facility] TYPE AND SCREEN, AUTOMATED 2024-12-20 04:23:00 [facility] W/[facility] & AUTO DIFFERENTIAL 2024-12-20 04:23:00 [facility] URINALYSIS WITH MICROSCOPIC IF INDICATED 2024-12-19 17:32:00 Beverly [facility] XR CHEST 2 VIEWS 2024-12-19 14:26:00 Beverly [facility] US ABDOMEN LIMITED 2024-12-19 12:29:59 Trevon Renteria [facility] BASIC METABOLIC PANEL 2024-12-19 04:01:00 [facility] HEPATIC FUNCTION PANEL 2024-12-19 04:01:00 [facility] HEMOGLOBIN A1C 2024-12-19 04:01:00 [facility] LIPID PANEL 2024-12-19 04:01:00 [facility] MAGNESIUM 2024-12-19 04:01:00 [facility] PHOSPHORUS 2024-12-19 04:01:00 [facility] CBC W/PLT COUNT & AUTO DIFFERENTIAL 2024-12-19 04:01:00 [facility] PHOSPHATIDYLETHANOL, BLOOD 2024-12-19 04:01:00 Mejia Renteria [facility] PROTHROMBIN TIME/INR 2024-12-19 04:01:00 Raj Jasmin [facility] CBC W/PLT COUNT & AUTO DIFFERENTIAL 2024-12-19 04:01:00 [facility] US ABDOMEN LIMITED 2024-12-18 21:22:00 Maribeth Friedman [facility] LACTIC ACID, VENOUS 2024-12-18 19:25:00 Gordo, [facility] BLOOD CULTURE 2024-12-18 19:25:00 Gordo, [facility] COMPREHENSIVE METABOLIC PANEL 2024-12-18 18:34:00 Gordo, [facility] CBC W/PLT COUNT & AUTO DIFFERENTIAL 2024-12-18 18:34:00 Gordo, [facility] PROTHROMBIN TIME/INR 2024-12-18 18:34:00 Gordo, [facility] APTT 2024-12-18 18:34:00 Gordo, [facility] LIPASE 2024-12-18 18:34:00 Gordo, [facility] CBC W/PLT COUNT & AUTO DIFFERENTIAL 2024-12-18 18:34:00 Gordo, [facility] HEPATIC FUNCTION PANEL 2024-12-18 09:27:00 Mariela Lucero K [facility] CBC W/PLT COUNT & AUTO DIFFERENTIAL 2024-12-18 09:27:00 Rafael Line K [facility] PROTHROMBIN TIME/INR 2024-12-18 09:27:00 Anaid Lucero K [facility] CBC W/PLT COUNT & AUTO DIFFERENTIAL 2024-12-18 09:27:00 Rafael Line K [facility] MISCELLANEOUS LAB ORDER 2024-12-18 09:27:00 Rafael Line K [facility] PROTHROMBIN TIME/INR 2024-12-13 04:34:00 Magdalena Cordoba [facility] CBC (HEMOGRAM ONLY) 2024-12-13 04:29:00 Magdalena Cordoba [facility] BASIC METABOLIC PANEL 2024-12-13 04:29:00 Kamilah Yu [facility] HEPATIC FUNCTION PANEL 2024-12-13 04:29:00 Akhil Yu [facility] US PARACENTESIS 2024-12-12 15:30:00 Ihsan Yu [facility] BODY FLUID CELL COUNT WITH DIFFERENTIAL 2024-12-12 14:40:00 [facility] BODY FLUID CULTURE + GRAM STAIN 2024-12-12 14:40:00 [facility] ALBUMIN, BODY FLUID 2024-12-12 14:40:00 [facility] COMPREHENSIVE METABOLIC PANEL 2024-12-12 04:48:00 Cordoba [facility] CBC (HEMOGRAM ONLY) 2024-12-12 04:48:00 Magdalena Cordoba [facility] PROTHROMBIN TIME/INR 2024-12-12 04:48:00 [facility] MR ABDOMEN WITH & WITHOUT IV CONTRAST 2024-12-11 11:15:00 Angie Argueta [facility] COMPREHENSIVE METABOLIC PANEL 2024-12-11 04:00:00 Sean [facility] CBC (HEMOGRAM ONLY) 2024-12-11 04:00:00 Magdalena Cordoba [facility] PROTHROMBIN TIME/INR 2024-12-11 04:00:00 Sean [facility] CERULOPLASMIN 2024-12-11 04:00:00 [facility] [place] IRON, TIBC, % SAT. (WITHOUT FERRITIN) 2024-12-11 04:00:00 [facility] FERRITIN 2024-12-11 04:00:00 [facility] [place] ANTI-NUCLEAR ANTIBODY (BRISSA) 2024-12-11 04:00:00 [facility] HC LAB FLUORESC AB SCRN EA AB 2024-12-11 04:00:00 [facility] ACTIN (SMOOTH MUSCLE) ANTIBODY, IGG 2024-12-11 04:00:00 [facility] PHOSPHATIDYLETHANOL, BLOOD 2024-12-11 04:00:00 Jasen Apple [facility] BILIRUBIN, DIRECT 2024-12-11 04:00:00 Zechariah [facility] [place] BRISSA TITER AND PATTERN 2024-12-11 04:00:00 Hilaria Apple [facility] MITOCHONDRIAL AB SCREEN 2024-12-11 04:00:00 Jake Apple [facility] MITOCHONDRIAL AB TITER 2024-12-11 04:00:00 Earlene Apple [facility] PROTEIN, RANDOM URINE 2024-12-10 08:04:00 Muriel Grider [facility] CREATININE, RANDOM URINE 2024-12-10 08:04:00 Bia Grideramando [facility] RAPID DRUG SCREEN, URINE 2024-12-10 08:04:00 Mahad Apple [facility] COMPREHENSIVE METABOLIC PANEL 2024-12-10 05:42:00 Sean [facility] PROTHROMBIN TIME/INR 2024-12-10 05:42:00 Magdalena Cordoba [facility] CARCINOEMBRYONIC ANTIGEN (CEA) 2024-12-10 05:42:00 Garcia Edwards [facility] CARBOHYDRATE ANTIGEN 19-9 (CA 19-9) 2024-12-10 05:42:00 Renzo Barth Garcia D [facility] CALCIUM, IONIZED 2024-12-10 05:42:00 Ghanshyam Grider [facility] MAGNESIUM 2024-12-10 05:42:00 Cheo [facility] PHOSPHORUS 2024-12-10 05:42:00 [facility] W/PLT COUNT & AUTO DIFFERENTIAL 2024-12-10 05:42:00 Cheo [facility] TSH/FREE T4 IF INDICATED 2024-12-10 05:42:00 Bia Grider [facility] URIC ACID 2024-12-10 05:42:00 [facility] T4, FREE 2024-12-10 05:42:00 [facility] BILIRUBIN, DIRECT 2024-12-10 05:42:00 Estuardo Almanzar [facility] BILIRUBIN, INDIRECT 2024-12-10 05:42:00 DavidleiaMaki baker [facility] HAPTOGLOBIN 2024-12-10 05:42:00 [facility] LACTATE DEHYDROGENASE (LDH) 2024-12-10 05:42:00 [facility] CBC W/PLT COUNT & AUTO DIFFERENTIAL 2024-12-10 05:42:00 Ghanshyam Grider [facility] URINALYSIS W/ MICROSCOPIC 2024-12-09 20:35:00 [facility] OSMOLALITY, URINE 2024-12-09 11:45:00 Damir Good [facility] SODIUM, RANDOM URINE 2024-12-09 11:45:00 Tonja Good [facility] LIPASE 2024-12-09 05:13:00 Sean [facility] COMPREHENSIVE METABOLIC PANEL 2024-12-09 05:13:00 Magdalena Cordoba [facility] CBC (HEMOGRAM ONLY) 2024-12-09 05:13:00 Magdalena Cordoba [facility] PROTHROMBIN TIME/INR 2024-12-09 05:13:00 Magdalena Cordoba [facility] CT ABDOMEN/PELVIS WITH IV CONTRAST 2024-12-08 23:35:29 Sean [facility] CT CHEST WITH IV CONTRAST 2024-12-08 23:35:29 Janina Cordoba [facility] COMPREHENSIVE METABOLIC PANEL 2024-12-08 17:27:00 Magdalena Cordoba [facility] CBC (HEMOGRAM ONLY) 2024-12-08 17:27:00 Magdalena Cordoba [facility] ALPHA FETOPROTEIN (AFP), TUMOR MARKER 2024-12-08 17:27:00 Sean [facility] PROTHROMBIN TIME/INR 2024-12-08 17:27:00 Sean [facility] HEPATITIS B PANEL 2024-12-08 17:27:00 Sean [facility] HEPATITIS C ANTIBODY 2024-12-08 17:27:00 Magdalena Cordoba [facility] HEPATITIS A ANTIBODY, IGG 2024-12-08 17:27:00 Janina Cordoba [facility] HEPATITIS B SURFACE ANTIGEN 2024-12-08 10:55:00 [facility] HEPATITIS A ANTIBODY, IGM 2024-12-08 10:55:00 [facility] LIPASE 2024-07-10 21:25:00 Freddie March [facility] COMP. METABOLIC PANEL (50980) 2024-07-10 21:25:00 Freddie March [facility] CBC WITH DIFF 2024-07-10 21:25:00 [facility] 2024-07-10 21:25:00 Freddie March [facility] CT ABDOMEN PELVIS WO CONTRAST 2024-07-10 21:23:00 Freddie March [facility] EKG-12 LEAD 2024-05-28 03:57:05 Gordy Randolph [facility] POCT TEST 2024-05-28 03:45:00 Radha Randolph [facility] XR CHEST 2 VW 2024-05-28 01:48:13 Janie Randolphherine [facility] INFLUENZA A/B RSV COVID NAAT 2024-05-28 01:07:00 Gordy Randolph [facility] LIPASE 2024-05-28 01:04:00 Gordy Randolph [facility] TROPONIN I 2024-05-28 01:04:00 Gordy Randolph [facility] COMP. METABOLIC PANEL (76394) 2024-05-28 01:04:00 Gordy Randolph [facility] CBC WITH DIFF 2024-05-28 01:04:00 Gordy Randolph [facility] XR CHEST 1 VW 2024-05-05 00:19:16 Tamy Morales [facility] XR NECK SOFT TISSUE 2024-05-05 00:19:16 Devin Morales [facility] RAPID STREP SCREEN FOR GROUP A 2024-05-04 23:20:00 Tamy Morales [facility] INFLUENZA A/B RSV COVID NAAT 2024-05-04 23:20:00 Tamy Morales [facility] Encounters Start Date/Time End Date/Time Encounter Type Admission Type Attending [facility] Care Facility Care Department Encounter ID Source 2025-05-03 08:10:53 Inpatient LUH MUNIZ [facility] [id number] [facility] 2025-03-28 18:19:44 Inpatient DENVER HU [facility] [id number] [facility] 2024-12-21 12:34:55 Inpatient SORIN BLAND [facility] [id number] [facility] 2024-12-19 12:22:36 Inpatient JASMIN CAVANAUGH [facility] [id number] [facility] 2024-12-19 00:00:00 Inpatient JASMIN CAVANAUGH [facility] [id number] [facility] 2024-12-12 14:17:30 Inpatient IHSAN RAMÍREZ [facility] [id number] [facility] 2024-12-11 09:37:39 Inpatient ANGIE GRIFFIN [facility] [id number] [facility] 2024-12-08 22:04:45 Inpatient MAGDALENA ONTIVEROS [facility] [id number] [facility] 2024-12-08 20:41:27 Inpatient MAGDALENA ONTIVEROS [facility] [id number] [facility] 2026-03-05 15:00:00 2026-03-05 15:00:00 Outpatient CHARLIE RACHEL [facility] [id number] [facility] 2025-07-25 10:30:00 2025-07-25 10:30:00 Outpatient LASHONDA RUVALCABA [id number] [facility] 2025-07-19 00:00:00 2025-07-19 10:56:56 Telephone Sharonda Morse [facility] [id number] [facility] 2025-07-10 00:00:00 2025-07-10 00:00:00 Outpatient JENNIFER GEORGE [id number] [facility] 2025-07-09 20:28:00 2025-07-09 23:38:00 Emergency Thea Camacho [facility] [id number] [facility] 2025-07-09 20:28:00 2025-07-09 23:38:00 Emergency ER THEA CAMACHO Emergency [id number] [facility] 2025-07-09 21:35:14 2025-07-09 21:35:14 Emergency THEA EDWARD [facility] [id number] [facility] 2025-07-05 08:30:55 2025-07-05 23:59:00 Outpatient MICHELLE GRAY [facility] [id number] [facility] 2025-07-05 08:00:00 2025-07-05 23:59:00 Hospital Encounter Michelle Pond [facility] [id number] [facility] 2025-07-03 00:00:00 2025-07-03 12:57:27 Telephone Sharonda Morse [facility] [id number] [facility] 2025-07-02 00:00:00 2025-07-02 00:00:00 Outpatient LASHONDA RUVALCABA [id number] [facility] 2025-06-28 00:00:00 2025-06-28 00:00:00 Outpatient JENNIFER GEORGE [id number] [facility] 2025-06-27 14:30:00 2025-06-27 14:30:00 Outpatient LASHONDA RUVALCABA [id number] [facility] 2025-06-27 00:00:00 2025-06-27 00:00:00 Outpatient LASHONDA RUVALCABA [id number] [facility] 2025-06-27 00:00:00 2025-06-27 00:00:00 Outpatient LASHONDA RUVALCABA [id number] [facility] 2025-06-26 13:38:00 2025-06-26 13:38:00 Outpatient SFA [facility] [id number] Arun Mora Lan 2025-06-25 17:44:00 2025-06-25 19:56:00 Emergency Candice QUACH, DANITA [facility] [id number] [facility] 2025-06-25 00:00:00 2025-06-25 16:03:22 Documentat ion Felipa López [facility] [id number] [facility] 2025-06-25 00:00:00 2025-06-25 15:49:22 Orders Only Felipa López [facility] [id number] [facility] 2025-06-24 13:51:00 2025-06-24 13:51:00 Outpatient SFA [facility] [id number] Arun Montenegro 2025-06-24 00:00:00 2025-06-24 00:00:00 Outpatient Visit [facility] [id number] Arun Montenegro 2025-05-22 00:00:00 2025-06-22 01:33:57 Telephone Sharonda Morse [facility] [id number] [facility] 2025-05-22 00:00:00 2025-06-22 01:33:57 Telephone LitoSharonda E [facility] [id number] [facility] 2025-06-20 14:24:28 2025-06-20 14:24:28 Outpatient DAVID [facility] [id number] [facility] 2025-06-20 10:00:00 2025-06-20 10:10:00 Lab Patient Walk-In Bairon Hansen [facility] [id number] [facility] 2025-06-20 10:00:00 2025-06-20 10:10:00 Lab Patient Walk-In Bairon Hansen [facility] [id number] [facility] 2025-06-18 09:15:00 2025-06-18 09:15:00 Outpatient NIK VALDIVIA [id number] Jennifer Florez 2025-06-18 00:00:00 2025-06-18 08:01:53 Orders Only Zainab Corbin [facility] [id number] [facility] 2025-06-18 00:00:00 2025-06-18 08:01:53 Orders Only Zainab Corbin [facility] [id number] [facility] 2025-06-17 00:00:00 2025-06-17 12:17:34 Telephone Sharonda Morse [facility] [id number] [facility] 2025-06-17 00:00:00 2025-06-17 12:17:34 Telephone Sharonda Morse [facility] [id number] [facility] 2025-06-14 00:00:00 2025-06-14 00:00:00 Outpatient JENNIFER GEORGE [id number] Jennifer Florez 2025-05-06 00:00:00 2025-06-06 01:37:05 Telephone Sharonda Morse [facility] [id number] [facility] 2025-05-06 00:00:00 2025-06-06 01:37:05 Telephone Sharonda Morse [facility] [id number] [facility] 2025-06-03 19:16:00 2025-06-04 02:20:00 Emergency ER YASMINE CLINE [facility] Emergency [id number] [facility] 2025-06-03 19:16:00 2025-06-04 02:20:00 Emergency Jammie Grgejasen [facility] [id number] [facility] 2025-06-03 19:16:00 2025-06-04 02:20:00 Emergency JammieGregjasen [facility] [id number] [facility] 2025-06-03 21:20:11 2025-06-03 21:20:11 Emergency YASMINE PEÑA [facility] [id number] [facility] 2025-06-03 19:18:24 2025-06-03 19:18:24 Outpatient BILLY BACON [facility] [id number] [facility] 2025-06-03 00:00:00 2025-06-03 12:37:34 Documentat Nithya Martin [facility] [id number] [facility] 2025-06-03 00:00:00 2025-06-03 12:37:34 Documentat Nithya Martin [facility] [id number] [facility] 2025-04-23 00:00:00 2025-05-24 01:34:40 Abstract Addis Espinoza [facility] [id number] [facility] 2025-04-23 00:00:00 2025-05-24 01:34:40 Abstract Park Espinozaetta [facility] [id number] [facility] 2025-05-22 00:00:00 2025-05-22 14:05:13 Documentat armen WilburnLitoSharonda [facility] [id number] [facility] 2025-05-22 00:00:00 2025-05-22 14:05:13 Documentat armen AllisonroSharonda E [facility] [id number] [facility] 2025-05-22 00:00:00 2025-05-22 13:17:58 Telephone Alexi Bhakta [facility] [id number] [facility] 2025-05-22 00:00:00 2025-05-22 13:17:58 Telephone Alexi Bhakta [facility] [id number] [facility] 2025-05-21 00:00:00 2025-05-21 10:14:49 Telephone Lito Alexandra [facility] [id number] [facility] 2025-05-21 00:00:00 2025-05-21 10:14:49 Telephone Lito Alexandra [facility] [id number] [facility] 2025-04-16 00:00:00 2025-05-17 01:36:44 Telephone Sharonda Morse [facility] [id number] [facility] 2025-04-16 00:00:00 2025-05-17 01:36:44 Telephone Sharonda Morse [facility] [id number] [facility] 2025-05-15 00:00:00 2025-05-16 10:16:09 Orders Only [facility] [id number] [facility] 2025-05-15 00:00:00 2025-05-16 10:16:09 Orders Only [facility] [id number] [facility] 2025-05-15 17:58:00 2025-05-16 01:07:00 Emergency ER LACNE HATCH Emergency [id number] [facility] 2025-05-15 17:58:00 2025-05-16 01:07:00 Emergency Lance Hatch [facility] [id number] [facility] 2025-05-15 17:58:00 2025-05-16 01:07:00 Emergency Lance Hatch [facility] [id number] [facility] 2025-05-15 23:06:48 2025-05-15 23:06:48 Emergency EL LANCE HATCH [facility] [id number] [facility] 2025-05-14 11:30:00 2025-05-14 11:40:00 Lab Patient Walk-In [facility] [id number] [facility] 2025-05-14 11:30:00 2025-05-14 11:40:00 Lab Patient Walk-In [facility] [id number] [facility] 2025-05-14 00:00:00 2025-05-14 11:37:59 Documentat Sharonda Menjivar [facility] [id number] [facility] 2025-05-14 00:00:00 2025-05-14 11:37:59 Documentat Sharonda Menjivar [facility] [id number] [facility] 2025-05-14 09:30:00 2025-05-14 09:45:00 Follow-Up Michelle Pond [facility] [id number] [facility] 2025-05-14 09:30:00 2025-05-14 09:45:00 Follow-Up Michelle Pond [facility] [id number] [facility] 2025-05-14 09:21:14 2025-05-14 09:21:14 Outpatient EL [facility] [id number] [facility] 2025-05-14 09:21:11 2025-05-14 09:21:11 Outpatient MICHELLE GRAY [facility] [id number] [facility] 2025-05-13 00:00:00 2025-05-13 12:47:51 Documentat armen López [facility] [id number] [facility] 2025-05-13 00:00:00 2025-05-13 12:47:51 Documentat armen López [facility] [id number] [facility] 2025-05-10 00:00:00 2025-05-10 10:36:39 Telephone Sharonda Morse [facility] [id number] [facility] 2025-05-10 00:00:00 2025-05-10 10:36:39 Telephone Sharonda Morse [facility] [id number] [facility] 2025-05-06 00:00:00 2025-05-06 16:20:39 Documentat ion Sharonda Morse [facility] [id number] [facility] 2025-05-06 00:00:00 2025-05-06 16:20:39 Documentat Sharonda Menjivar [facility] [id number] [facility] 2025-05-01 16:14:00 2025-05-04 10:59:00 Hospital Encounter Yasmine Cline Jenny Bich Agrawal, Neeraj [facility] [id number] [facility] 2025-05-01 16:14:00 2025-05-04 10:59:00 Hospital Encounter Yasmine Cline, Luh Dickens, Jong [facility] [id number] [facility] 2025-05-01 21:22:17 2025-05-01 21:22:17 Emergency EL YASMINE CLINE [facility] SLE [id number] [facility] 2025-05-01 18:26:00 2025-05-01 18:26:00 Emergency EL YASMINE CLINE [facility] SLE [id number] [facility] 2025-05-01 00:00:00 2025-05-01 00:00:00 Travel [facility] [id number] [facility] 2025-05-01 00:00:00 2025-05-01 00:00:00 Travel [facility] [id number] [facility] 2025-03-29 00:00:00 2025-04-29 01:34:45 Telephone LitoSharonda malave [facility] [id number] [facility] 2025-03-29 00:00:00 2025-04-29 01:34:45 Telephone LitoSharonda [facility] [id number] [facility] 2025-03-12 00:00:00 2025-04-27 02:39:53 Telephone LitoSharonda [facility] [id number] [facility] 2025-03-12 00:00:00 2025-04-27 02:39:53 Telephone LitoSharonda [facility] [id number] [facility] 2025-03-12 00:00:00 2025-04-27 02:39:49 Telephone LitoSharonda [facility] [id number] [facility] 2025-03-12 00:00:00 2025-04-27 02:39:49 Telephone Lito, Alexandra [facility] [id number] [facility] 2025-04-26 00:00:00 2025-04-26 15:35:53 Telephone Sharonda Morse [facility] [id number] [facility] 2025-04-26 00:00:00 2025-04-26 15:35:53 Telephone Sharonda Morse [facility] [id number] [facility] 2025-04-24 00:00:00 2025-04-24 13:45:29 RefFelipa Winters [facility] [id number] [facility] 2025-04-24 00:00:00 2025-04-24 13:45:29 Felipa Gregg [facility] [id number] [facility] 2025-04-23 14:00:00 2025-04-23 14:30:00 Follow-Up Paxton Quach [facility] [id number] [facility] 2025-04-23 14:00:00 2025-04-23 14:30:00 Follow-Up Paxton Quach [facility] [id number] [facility] 2025-04-23 13:46:52 2025-04-23 13:46:52 Outpatient PAXTON QUACH [facility] [id number] [facility] 2025-04-19 00:00:00 2025-04-19 13:39:06 Telephone Sharonda Morse [facility] [id number] [facility] 2025-04-19 00:00:00 2025-04-19 13:39:06 Telephone Sharonda Morse [facility] [id number] [facility] 2025-04-16 00:00:00 2025-04-16 15:58:20 Documentat ion Sharonda Morse [facility] [id number] [facility] 2025-04-16 00:00:00 2025-04-16 15:58:20 Documentat Sharonda Menjivar [facility] [id number] [facility] 2025-03-13 00:00:00 2025-04-13 02:35:06 Abstract Felipa López [facility] [id number] [facility] 2025-03-13 00:00:00 2025-04-13 02:35:06 Abstract Felipa López [facility] [id number] [facility] 2025-03-13 00:00:00 2025-04-13 02:34:26 Abstract Felipa López [facility] [id number] [facility] 2025-03-13 00:00:00 2025-04-13 02:34:26 Patricia Felipa López [facility] [id number] [facility] 2025-04-10 18:26:00 2025-04-12 16:44:00 Outpatient ER SONDRA JONES [facility] Emergency [id number] [facility] 2025-04-10 18:26:00 2025-04-12 16:44:00 Hospital Encounter Usha Shields Ha Gadicherla, Sonal M Zindani Sondra [facility] [id number] [facility] 2025-04-10 18:26:00 2025-04-12 16:44:00 Hospital Encounter Usha Shields Ha Gadicherla, Sonal M Zindani Sondra [facility] [id number] [facility] 2025-04-11 00:00:00 2025-04-11 05:48:02 Orders Only [facility] [id number] [facility] 2025-04-11 00:00:00 2025-04-11 05:48:02 Orders Only [facility] [id number] [facility] 2025-04-11 01:04:54 2025-04-11 01:04:54 Outpatient FLAVIO WHITLEY [facility] [id number] [facility] 2025-04-11 00:00:00 2025-04-11 00:00:00 Travel [facility] [id number] [facility] 2025-04-11 00:00:00 2025-04-11 00:00:00 Travel [facility] [id number] [facility] 2025-04-10 22:03:28 2025-04-10 22:03:28 [facility] [facility] [id number] [facility] 2025-03-25 13:59:00 2025-03-31 16:32:00 Hospital Encounter Donna Sadler Rahana K Nikhil, Seth Kemal, Nejmudin R [facility] [id number] [facility] 2025-03-25 13:59:00 2025-03-31 16:32:00 Hospital Encounter Donna Sadler Rahana K Nikhil, Seth Kemal, Nejmudin R [facility] [id number] [facility] 2025-03-29 00:00:00 2025-03-29 12:08:55 Documentat armen LitoSharonda [facility] [id number] [facility] 2025-03-29 00:00:00 2025-03-29 12:08:55 Documentat armen LitoSharonda [facility] [id number] [facility] 2025-03-29 09:57:48 2025-03-29 09:57:48 Outpatient DENVER HU [facility] SLE [id number] [facility] 2025-02-26 00:00:00 2025-03-29 01:39:43 Abstract Addis Espinoza [facility] [id number] [facility] 2025-02-26 00:00:00 2025-03-29 01:39:43 Abstract Addis Espinoza [facility] [id number] [facility] 2025-03-26 16:58:07 2025-03-26 16:58:07 Outpatient JENNIFER YE [facility] [id number] [facility] 2025-03-26 00:00:00 2025-03-26 00:00:00 Travel [facility] [id number] [facility] 2025-03-26 00:00:00 2025-03-26 00:00:00 Travel [facility] [id number] [facility] 2025-03-25 16:41:11 2025-03-25 16:41:11 Emergency DONNA HEMPHILL [facility] [id number] SLE 2025-03-25 16:41:05 2025-03-25 16:41:05 Emergency DONNA HEMPHILL SLE [facility] [id number] SLE 2025-03-18 10:25:02 2025-03-18 10:25:02 Outpatient SFA [facility] [id number] Arun Mora Lan 2025-03-18 00:00:00 2025-03-18 00:00:00 Outpatient Visit [facility] [id number] Arun Mora Lan 2025-03-14 00:00:00 2025-03-14 11:55:33 Documentat ion LitoSharonda [facility] [id number] [facility] 2025-03-14 00:00:00 2025-03-14 11:55:33 Documentat ion Sharonda Morse [facility] [id number] [facility] 2025-03-14 00:00:00 2025-03-14 11:20:44 Documentat ion Shanell Leo [facility] [id number] [facility] 2025-03-14 00:00:00 2025-03-14 11:20:44 Documentat ion Shanell Leo [facility] [id number] [facility] 2025-03-14 11:19:10 2025-03-14 11:19:15 Outpatient EL [facility] [id number] [facility] 2025-03-14 11:00:00 2025-03-14 11:19:15 UNOS Charge Visit Dieter Melendez [facility] [id number] [facility] 2025-03-14 11:00:00 2025-03-14 11:19:15 UNOS Charge Visit Dieter Melendez [facility] [id number] [facility] 2025-03-14 00:00:00 2025-03-14 11:17:50 Documentat armen Nick Ross [facility] [id number] [facility] 2025-03-14 00:00:00 2025-03-14 11:17:50 Documentat Nick Nazario [facility] [id number] [facility] 2025-03-14 00:00:00 2025-03-14 11:10:43 Documentat armen López [facility] [id number] [facility] 2025-03-14 00:00:00 2025-03-14 11:10:43 Documentat armen López [facility] [id number] [facility] 2025-03-14 00:00:00 2025-03-14 10:41:37 Documentat Felipa Bey [facility] [id number] [facility] 2025-03-14 00:00:00 2025-03-14 10:41:37 Documentat armen López [facility] [id number] [facility] 2025-03-14 00:00:00 2025-03-14 10:32:51 Documentat Felipa Bey [facility] [id number] [facility] 2025-03-14 00:00:00 2025-03-14 10:32:51 Documentat Felipa Bey [facility] [id number] [facility] 2025-03-12 00:00:00 2025-03-14 10:11:58 Orders Only Provider, Not In System [facility] [id number] [facility] 2025-03-12 00:00:00 2025-03-14 10:11:58 Orders Only Provider, Not In System [facility] [id number] [facility] 2025-03-12 00:00:00 2025-03-14 10:11:52 Orders Only Provider, Not In System [facility] [id number] [facility] 2025-03-12 00:00:00 2025-03-14 10:11:52 Orders Only Provider, Not In System [facility] [id number] [facility] 2025-02-11 00:00:00 2025-03-14 01:32:13 Abstract Felipa López [facility] [id number] [facility] 2025-02-11 00:00:00 2025-03-14 01:32:13 Abstract Rene Felipa [facility] [id number] [facility] 2025-03-12 00:00:00 2025-03-12 15:48:21 Documentat ion Sharonda Morse [facility] [id number] [facility] 2025-03-12 00:00:00 2025-03-12 15:48:21 Documentat ion LitoSharonda [facility] [id number] [facility] 2025-03-12 00:00:00 2025-03-12 15:38:17 Documentat ion LitoSharonda [facility] [id number] [facility] 2025-03-12 00:00:00 2025-03-12 15:38:17 Documentat ion LitoSharonda [facility] [id number] [facility] 2025-03-12 00:00:00 2025-03-12 13:45:31 Documentat ion Felipa López [facility] [id number] [facility] 2025-03-12 00:00:00 2025-03-12 13:45:31 Documentat Felipa Bey [facility] [id number] [facility] 2025-03-12 10:30:00 2025-03-12 10:40:00 Lab Patient Walk-In [facility] [id number] [facility] 2025-03-12 10:30:00 2025-03-12 10:40:00 Lab Patient Walk-In [facility] [id number] [facility] 2025-03-12 10:15:00 2025-03-12 10:30:00 Follow-Up Michelle Pond [facility] [id number] [facility] 2025-03-12 10:15:00 2025-03-12 10:30:00 Follow-Up Michelle Pond [facility] [id number] [facility] 2025-03-12 10:23:48 2025-03-12 10:23:48 Outpatient EL SLE [facility] [id number] [facility] 2025-03-12 10:23:44 2025-03-12 10:23:44 Outpatient EL MICHELLE POND SLE [facility] [id number] [facility] 2025-03-11 00:00:00 2025-03-11 13:35:37 Documentat Felipa Bey [facility] [id number] [facility] 2025-03-11 00:00:00 2025-03-11 13:35:37 Documentat Felipa Bey [facility] [id number] [facility] 2025-03-07 00:00:00 2025-03-07 16:04:17 Telephone Sharonda Morse [facility] [id number] [facility] 2025-03-07 00:00:00 2025-03-07 16:04:17 Telephone Sharonda Morse [facility] [id number] [facility] 2025-03-05 19:25:00 2025-03-07 14:09:00 Inpatient ER LYNN EDWARD [facility] Emergency [id number] [facility] 2025-03-05 19:25:00 2025-03-07 14:09:00 Hospital Encounter Thea Camacho, Lance Forte, Shanelljasen Wagner, Lynn Flowers [facility] [id number] [facility] 2025-03-05 19:25:00 2025-03-07 14:09:00 Hospital Encounter Thea Camachodoc, Lance Forte, Shanelljasen Wagner, Lynn Flowers [facility] [id number] [facility] 2025-03-06 00:00:00 2025-03-06 00:00:00 Travel [facility] [id number] [facility] 2025-03-06 00:00:00 2025-03-06 00:00:00 Travel [facility] [id number] [facility] 2025-03-05 23:23:03 2025-03-05 23:23:03 Emergency EL [facility] [id number] [facility] 2025-03-04 16:00:00 2025-03-04 17:26:30 Office Visit Mahad Rachelutosh [facility] [address] [id number] [facility] 2025-02-08 00:00:00 2025-03-04 10:45:47 Telephone Laureen Infante [facility] [id number] [facility] 2025-02-08 00:00:00 2025-03-04 10:45:47 Telephone Laureen Infante [facility] [id number] [facility] 2025-02-28 10:23:00 2025-02-28 13:41:00 Hospital Encounter Bairon Hansen [facility] [id number] [facility] 2025-02-28 10:23:00 2025-02-28 13:41:00 Hospital Encounter Bairon Hansen [facility] [id number] [facility] 2025-02-28 12:13:00 2025-02-28 13:01:00 Anesthesia Event Eva Lewis Timothy [facility] [id number] [facility] 2025-02-28 12:13:00 2025-02-28 13:01:00 Anesthesia Event Eva Lewis Timothy [facility] [id number] [facility] 2025-02-28 11:30:00 2025-02-28 12:30:00 Surgery Bairon Hansen [facility] [id number] [facility] 2025-02-28 11:30:00 2025-02-28 12:30:00 Surgery Bairon Hansen [facility] [id number] [facility] 2025-02-28 00:00:00 2025-02-28 00:00:00 Outpatient JENNIFER GEORGE [id number] Jennifer Florez 2025-02-28 00:00:00 2025-02-28 00:00:00 Travel [facility] [id number] [facility] 2025-02-28 00:00:00 2025-02-28 00:00:00 Travel [facility] [id number] [facility] 2025-02-26 14:42:44 2025-02-26 23:59:00 Outpatient EL ANGIE [facility]GUETA [facility] [id number] [facility] 2025-02-26 14:42:44 2025-02-26 23:59:00 Hospital Encounter Angie Argueta [facility] [id number] [facility] 2025-02-26 14:42:44 2025-02-26 23:59:00 Hospital Encounter Angie Argueta [facility] [id number] [facility] 2025-02-26 00:00:00 2025-02-26 15:15:25 Telephone Sharonda Morse [facility] [id number] [facility] 2025-02-26 00:00:00 2025-02-26 15:15:25 Telephone Sharonda Morse [facility] [id number] [facility] 2025-02-26 13:00:00 2025-02-26 14:00:00 Follow-Up Paxton Quach [facility] [id number] [facility] 2025-02-26 13:00:00 2025-02-26 14:00:00 Follow-Up Paxton Quach [facility] [id number] [facility] 2025-02-26 12:46:04 2025-02-26 12:46:04 Outpatient PAXTON QUACH [facility] [id number] [facility] 2025-02-26 00:00:00 2025-02-26 00:00:00 Travel [facility] [id number] [facility] 2025-02-26 00:00:00 2025-02-26 00:00:00 Travel [facility] [id number] [facility] 2025-02-25 00:00:00 2025-02-25 14:25:05 [facility]at [facility] [id number] [facility] 2025-02-25 00:00:00 2025-02-25 14:25:05 Documentat ion Vicki Mariel [facility] [id number] [facility] 2025-02-22 00:00:00 2025-02-22 16:15:12 Refill Maritza Contreras R [facility] [id number] [facility] 2025-02-22 00:00:00 2025-02-22 16:15:12 Refill Maritza Contreras R [facility] [id number] [facility] 2025-02-19 00:00:00 2025-02-19 00:00:00 Outpatient JENNIFER GEORGE [id number] Jennifer Florez 2025-02-18 00:00:00 2025-02-18 10:40:48 Telephone Sharonda Morse [facility] [id number] [facility] 2025-02-18 00:00:00 2025-02-18 10:40:48 Telephone Sharonda Morse [facility] [id number] [facility] 2025-02-14 18:52:00 2025-02-16 15:45:00 Inpatient ER RODRIGUEZ LINCOLN [facility] Emergency [id number] [facility] 2025-02-14 18:52:00 2025-02-16 15:45:00 Hospital Encounter Catrina, Chanell Anderson Christine [facility] [id number] [facility] 2025-02-14 18:52:00 2025-02-16 15:45:00 Hospital Encounter Catrina, Chanell Anderson [facility] [id number] [facility] 2025-02-14 20:50:36 2025-02-14 20:50:36 [facility] [id number] [facility] 2025-02-14 19:03:25 2025-02-14 19:03:25 Emergency EL CATRINA, JAMIL SLE SLE [id number] [facility] 2025-02-14 00:00:00 2025-02-14 00:00:00 Travel [facility] [id number] [facility] 2025-02-14 00:00:00 2025-02-14 00:00:00 Travel [facility] [id number] [facility] 2025-02-13 12:48:18 2025-02-13 23:59:00 Outpatient EL ELLIE, ANGIE [facility] [id number] [facility] 2025-02-13 12:48:18 2025-02-13 23:59:00 Hospital Encounter Angie Argueta [facility] [id number] [facility] 2025-02-13 12:48:18 2025-02-13 23:59:00 Hospital Encounter Angie Argueta [facility] [id number] [facility] 2025-02-13 14:15:00 2025-02-13 14:30:00 Lab Patient Walk-In Angie Argueta [facility] [id number] [facility] 2025-02-13 14:15:00 2025-02-13 14:30:00 Lab Patient Walk-In EllieAngie sanchez [facility] [id number] [facility] 2025-02-13 13:45:00 2025-02-13 14:15:00 Office Visit Angie Argueta [facility] [id number] [facility] 2025-02-13 13:45:00 2025-02-13 14:15:00 Office Visit Angie Argueta [facility] [id number] [facility] 2025-02-13 14:04:33 2025-02-13 14:04:33 Outpatient ANGIE GRIFFIN [id number] [facility] 2025-02-13 14:04:22 2025-02-13 14:04:22 Outpatient ANGIE GRIFFIN [facility] [id number] [facility] 2025-02-13 00:00:00 2025-02-13 11:17:17 Telephone Lito Alexandra [facility] [id number] [facility] 2025-02-13 00:00:00 2025-02-13 11:17:17 Telephone Lito Alexandra [facility] [id number] [facility] 2025-02-13 00:00:00 2025-02-13 00:00:00 Outpatient JENNIFER GEORGE [id number] Jennifer Florez 2025-02-12 00:00:00 2025-02-12 00:00:00 Outpatient EL SLE [facility] [id number] [facility] 2025-02-08 00:00:00 2025-02-08 08:48:12 Documentat Felipa Bey [facility] [id number] [facility] 2025-02-08 00:00:00 2025-02-08 08:48:12 Documentat Felipa Bey [facility] [id number] [facility] 2025-02-07 07:29:00 2025-02-07 16:45:00 Outpatient EL GUSTABO VAZQUEZ [facility] Cardiac Cath [id number] [facility] 2025-02-07 07:29:00 2025-02-07 16:45:00 Hospital Encounter Gustabo Vazquez [facility] [id number] [facility] 2025-02-07 07:29:00 2025-02-07 16:45:00 Hospital Encounter Gustabo Vazquez R [facility] [id number] [facility] 2025-02-07 10:32:00 2025-02-07 12:24:00 Surgery Gustabo Vazquez R [facility] [id number] [facility] 2025-02-07 10:32:00 2025-02-07 12:24:00 Surgery Gustabo Vazquez R [facility] [id number] [facility] 2025-02-07 00:00:00 2025-02-07 08:46:49 Orders Only [facility] [id number] [facility] 2025-02-07 00:00:00 2025-02-07 08:46:49 Orders Only [facility] [id number] [facility] 2025-02-07 00:00:00 2025-02-07 00:00:00 Travel [facility] [id number] [facility] 2025-02-07 00:00:00 2025-02-07 00:00:00 Travel [facility] [id number] [facility] 2025-02-06 00:00:00 2025-02-06 10:56:11 Orders Only Felipa López [facility] [id number] [facility] 2025-02-06 00:00:00 2025-02-06 10:56:11 Orders Only Felipa López [facility] [id number] [facility] 2025-02-05 00:00:00 2025-02-05 00:00:00 Outpatient EL SLEH [facility] [id number] [facility] 2025-02-01 11:29:32 2025-02-01 23:59:00 Outpatient EL ELLIE, RISE [facility] [id number] SLE 2025-02-01 10:00:00 2025-02-01 23:59:00 Hospital Encounter Ellie, Rise [facility] [id number] [facility] 2025-02-01 10:00:00 2025-02-01 23:59:00 Hospital Encounter Ellie, Rise J [facility] [id number] [facility] 2025-02-01 00:00:00 2025-02-01 11:17:37 Orders Only [facility] [id number] [facility] 2025-02-01 00:00:00 2025-02-01 11:17:37 Orders Only [facility] [id number] [facility] 2025-02-01 08:28:50 2025-02-01 09:59:00 Outpatient EL ELLIE, RISE [facility] [id number] [facility] 2025-02-01 08:28:50 2025-02-01 09:59:00 Hospital Encounter Ellie, Rise J [facility] [id number] [facility] 2025-02-01 08:28:50 2025-02-01 09:59:00 Hospital Encounter Ellie, Rise J [facility] [id number] [facility] 2025-02-01 09:00:00 2025-02-01 09:30:00 Office Visit Ellie, Rise J [facility] [id number] [facility] 2025-02-01 09:00:00 2025-02-01 09:30:00 Office Visit EllieAngie sanchez [facility] [id number] [facility] 2025-02-01 08:26:44 2025-02-01 08:27:00 Outpatient EL ELLIEANGIE LERMA SLEH [facility]H [id number] [facility] 2025-02-01 08:26:44 2025-02-01 08:27:00 Hospital Encounter EllieAngie [facility] [id number] [facility] 2025-02-01 08:26:44 2025-02-01 08:27:00 Hospital Encounter Ellie, Angie [facility] [id number] [facility] 2025-02-01 08:25:22 2025-02-01 08:25:22 Hospital Encounter Ellie, Angie [facility] [id number] [facility] 2025-02-01 08:25:22 2025-02-01 08:25:22 Hospital Encounter Ellie, Angie [facility] [id number] [facility] 2025-02-01 08:25:21 2025-02-01 08:25:22 Outpatient EL ELLIEANGIE LERMA [facility] [id number] [facility] 2025-02-01 08:03:00 2025-02-01 08:03:00 Outpatient EL ELLIE, ANGIE [facility] [id number] [facility] 2025-01-29 19:29:00 2025-01-30 02:17:00 Emergency ER LANCE HATCH [facility] Emergency [id number] [facility] 2025-01-29 19:29:00 2025-01-30 02:17:00 Emergency Yovani Culver Michael S [facility] [id number] [facility] 2025-01-29 19:29:00 2025-01-30 02:17:00 Emergency Yovani Culver Michael S [facility] [id number] [facility] 2025-01-29 23:26:00 2025-01-29 23:26:00 Emergency YOVANI PEPPER [facility] [id number] [facility] 2025-01-28 00:00:00 2025-01-28 10:41:54 Telephone Gustabo Vazquez [facility] [id number] [facility] 2025-01-28 00:00:00 2025-01-28 10:41:54 Telephone Gustabo Vazquez [facility] [id number] [facility] 2025-01-28 00:00:00 2025-01-28 08:33:44 Documentat Pastora Cool [facility] [id number] [facility] 2025-01-28 00:00:00 2025-01-28 08:33:44 Documentat Pastora Cool [facility] [id number] [facility] 2025-01-23 00:00:00 2025-01-25 16:53:13 Orders Only Provider, Not In System [facility] [id number] [facility] 2025-01-23 00:00:00 2025-01-25 16:53:13 Orders Only Provider, Not In System [facility] [id number] [facility] 2025-01-25 00:00:00 2025-01-25 10:13:30 Documentat ion Sharonda Morse [facility] [id number] [facility] 2025-01-25 00:00:00 2025-01-25 10:13:30 Documentat ion Lito Alexandra [facility] [id number] [facility] 2025-01-23 00:00:00 2025-01-25 09:51:28 Orders Only Provider, Not In System [facility] [id number] [facility] 2025-01-23 00:00:00 2025-01-25 09:51:28 Orders Only Provider, Not In System [facility] [id number] [facility] 2025-01-25 00:00:00 2025-01-25 09:47:29 Documentat Sharonda Menjivar [facility] [id number] [facility] 2025-01-25 00:00:00 2025-01-25 09:47:29 Documentat Sharonda Menjivar [facility] [id number] [facility] 2025-01-25 00:00:00 2025-01-25 00:00:00 Telephone Sharonda Morse [facility] [id number] [facility] 2025-01-25 00:00:00 2025-01-25 00:00:00 Telephone Sharonda Morse [facility] [id number] [facility] 2025-01-25 00:00:00 2025-01-25 00:00:00 Telephone Sharonda Morse [facility] [id number] [facility] 2025-01-25 00:00:00 2025-01-25 00:00:00 Telephone Sharonda Morse [facility] [id number] [facility] 2025-01-23 15:16:09 2025-01-23 23:59:00 Outpatient EL ANGIE ARGUETA [facility] [id number] [facility] 2025-01-23 15:16:09 2025-01-23 23:59:00 Hospital Encounter Angie Argueta [facility] [id number] [facility] 2025-01-23 15:16:09 2025-01-23 23:59:00 Hospital Encounter EllieAngie sanchez [facility] [id number] [facility] 2025-01-23 14:21:15 2025-01-23 15:15:00 Outpatient EL ELLIE[facility] [id number] [facility] 2025-01-23 14:21:15 2025-01-23 15:15:00 Hospital Encounter Ellie, Rise J [facility] [id number] [facility] 2025-01-23 14:21:15 2025-01-23 15:15:00 Hospital Encounter EllieAngie sanchez [facility] [id number] [facility] 2025-01-23 14:20:39 2025-01-23 14:20:39 Outpatient EL ANGIE ARGUETA SLECleo SLECleo [id number] SLE 2025-01-23 14:20:39 2025-01-23 14:20:39 Hospital Encounter EllieAngie lerma [facility] [id number] [facility] 2025-01-23 14:20:39 2025-01-23 14:20:39 Hospital Encounter Angie Argueta J [facility] [id number] [facility] 2025-01-23 12:45:00 2025-01-23 13:00:00 Office Visit Gustabo Vazquez [facility] [id number] [facility] 2025-01-23 12:45:00 2025-01-23 13:00:00 Office Visit Gustabo Vazquez [facility] [id number] [facility] 2025-01-23 12:16:52 2025-01-23 12:16:52 Outpatient [facility] [id number] [facility] 2025-01-23 10:00:00 2025-01-23 10:30:00 Evaluation Dieter Melendez Abbas A [facility] [id number] [facility] 2025-01-23 10:00:00 2025-01-23 10:30:00 Evaluation Dieter Melendez Abbas A [facility] [id number] [facility] 2025-01-23 09:00:00 2025-01-23 09:30:00 Evaluation Angie Argueta Amy [facility] [id number] [facility] 2025-01-23 09:00:00 2025-01-23 09:30:00 Evaluation Ellie, Angie López Anuradha [facility] [id number] [facility] 2025-01-23 08:30:00 2025-01-23 09:00:00 Social Work Ellie, Roland Wesley [facility] [id number] [facility] 2025-01-23 08:30:00 2025-01-23 09:00:00 Social Work Ellie, Roland Wesley [facility] [id number] [facility] 2025-01-23 08:00:00 2025-01-23 08:30:00 Evaluation Ell[facility] [id number] [facility] 2025-01-23 08:00:00 2025-01-23 08:30:00 Evaluation Ellie, Angie Mejia MackChelsea [facility] [id number] [facility] 2025-01-23 07:30:00 2025-01-23 07:40:00 Lab Patient Walk-In Ellie, Angie Mejia [facility] [id number] [facility] 2025-01-23 07:30:00 2025-01-23 07:40:00 Lab Patient Walk-In Ellie, Angie Ba [facility] [id number] [facility] 2025-01-23 06:43:50 2025-01-23 06:43:50 Outpatient EL ELLIE, RISE SLE SLE [id number] SLE 2025-01-23 06:43:48 2025-01-23 06:43:48 Outpatient EL SLEH SLE [id number] SLE 2025-01-23 06:43:45 2025-01-23 06:43:45 Outpatient EL SLEH SLEH [id number] SLE 2025-01-23 06:43:42 2025-01-23 06:43:42 Outpatient EL SLEH SLE [id number] SLE 2025-01-23 06:43:38 2025-01-23 06:43:38 Outpatient AARON APPLE [facility] [id number] [facility] 2025-01-22 00:00:00 2025-01-22 16:51:28 Telephone Sharonda Morse [facility] [id number] [facility] 2025-01-22 00:00:00 2025-01-22 16:51:28 Telephone Sharonda Morse [facility] [id number] [facility] 2025-01-21 00:00:00 2025-01-21 15:33:20 Documentat ion Nohemy Caldwell [facility] [id number] [facility] 2025-01-21 00:00:00 2025-01-21 15:33:20 Documentat ion Nohemy Caldwell [facility] [id number] [facility] 2025-01-21 00:00:00 2025-01-21 08:11:50 Telephone Keyonna Be [facility] [id number] [facility] 2025-01-21 00:00:00 2025-01-21 08:11:50 Telephone Barrett Beal [facility] [id number] [facility] 2025-01-18 00:00:00 2025-01-18 15:43:48 Telephone Sharonda Morse [facility] [id number] [facility] 2025-01-18 00:00:00 2025-01-18 15:43:48 Telephone Sharonda Morse [facility] [id number] [facility] 2025-01-18 00:00:00 2025-01-18 14:25:38 Documentat Chelsea Tejada [facility] [id number] [facility] 2025-01-18 00:00:00 2025-01-18 14:25:38 Documentat Chelsea Tejada [facility] [id number] [facility] 2025-01-17 00:00:00 2025-01-17 09:23:31 Documentat Chelsea Tejada [facility] [id number] [facility] 2025-01-17 00:00:00 2025-01-17 09:23:31 Documentat Chelsea Tejada [facility] [id number] [facility] 2025-01-15 00:00:00 2025-01-15 13:10:48 Documentat Chelsea Tejada [facility] [id number] [facility] 2025-01-15 00:00:00 2025-01-15 13:10:48 Documentat Chelsea Tejada [facility] [id number] [facility] 2025-01-15 00:00:00 2025-01-15 12:39:16 Documentat Chelsea Tejada [facility] [id number] [facility] 2025-01-15 00:00:00 2025-01-15 12:39:16 Documentat Chelsea Tejada [facility] [id number] [facility] 2025-01-09 07:54:37 2025-01-09 23:59:00 Outpatient EL OSIRIS SORIN [facility] [id number] [facility] 2025-01-09 07:00:00 2025-01-09 23:59:00 Hospital Encounter Sorin Murillo V [facility] [id number] [facility] 2025-01-09 07:00:00 2025-01-09 23:59:00 Hospital Encounter Sorin Murillo V [facility] [id number] [facility] 2025-01-03 00:00:00 2025-01-03 16:18:11 Telephone Lito Alexandra [facility] [id number] [facility] 2025-01-03 00:00:00 2025-01-03 16:18:11 Telephone Sharonda Morse [facility] [id number] [facility] 2025-01-03 00:00:00 2025-01-03 14:52:52 Telephone Sharonda Morse [facility] [id number] [facility] 2025-01-03 00:00:00 2025-01-03 14:52:52 Telephone Sharonda Morse [facility] [id number] [facility] 2025-01-03 14:31:38 2025-01-03 14:31:38 Outpatient SFA [facility] [id number] Arun Montenegro 2025-01-03 00:00:00 2025-01-03 00:00:00 Outpatient Visit [facility] [id number] Arun Montenegro 2025-01-02 00:00:00 2025-01-02 17:12:32 Telephone Sharonda Morse [facility] [id number] [facility] 2025-01-02 00:00:00 2025-01-02 17:12:32 Telephone Sharonda Morse [facility] [id number] [facility] 2025-01-02 00:00:00 2025-01-02 16:49:53 Telephone Sharonda Morse [facility] [id number] [facility] 2025-01-02 00:00:00 2025-01-02 16:49:53 Telephone Sharonda Morse [facility] [id number] [facility] 2025-01-02 00:00:00 2025-01-02 12:54:17 Orders Only Felipa López [facility] [id number] [facility] 2025-01-02 00:00:00 2025-01-02 12:54:17 Orders Only Felipa López [facility] [id number] [facility] 2024-12-25 16:32:00 2024-12-28 10:59:00 Hospital Encounter Dago Casillas Nawazish A Jain, Nehal Patel [facility] [id number] [facility] 2024-12-25 16:32:00 2024-12-28 10:59:00 Hospital Encounter Daog Casillas Nawazish A Jain, Nehal Patel [facility] [id number] [facility] 2024-12-27 00:00:00 2024-12-27 23:59:00 Outpatient SORIN BLAND SLE SLE [id number] [facility] 2024-12-27 00:00:00 2024-12-27 00:00:00 Outpatient JENNIFER GEORGE [id number] Jennifer Florez 2024-12-27 00:00:00 2024-12-27 00:00:00 Outpatient SORIN BLAND SLECleo SLE [id number] [facility] 2024-12-26 00:00:00 2024-12-26 12:22:19 Documentat armen LitoSharonda [facility] [id number] [facility] 2024-12-26 00:00:00 2024-12-26 12:22:19 Documentat armen Lito Sharonda Cordon [facility] [id number] [facility] 2024-12-26 07:20:18 2024-12-26 07:20:18 Outpatient [facility] [id number] [facility] 2024-12-25 22:33:08 2024-12-25 22:33:08 Emergency DAGO MAXWELL [facility] SLE [id number] [facility] 2024-12-25 00:00:00 2024-12-25 00:00:00 Travel [facility] [id number] [facility] 2024-12-25 00:00:00 2024-12-25 00:00:00 Travel [facility] [id number] [facility] 2024-12-18 18:12:00 2024-12-21 18:37:00 Hospital Encounter GordoMaribeth benson Catherine Margaret Hilda, Mrinalini Z [facility] [id number] [facility] 2024-12-18 18:12:00 2024-12-21 18:37:00 [facility] Maribeth Friedman Catherine Margaret Kulkarni, Mrinalini Z [facility] [id number] [facility] 2024-12-21 00:00:00 2024-12-21 13:30:08 Orders Only Sorin Murillo V [facility] [id number] [facility] 2024-12-21 00:00:00 2024-12-21 13:30:08 Orders Only Sorin Murillo V [facility] [id number] [facility] 2024-12-20 11:43:43 2024-12-20 11:43:43 Outpatient GRETA MARROQUIN SLE SLEH [id number] SLE 2024-12-19 14:16:20 2024-12-19 14:16:20 Outpatient GRETA MARROQUIN SLEH SLEH [id number] SLE 2024-12-19 00:00:00 2024-12-19 00:00:00 Travel [facility] [id number] [facility] 2024-12-19 00:00:00 2024-12-19 00:00:00 Travel [facility] [id number] [facility] 2024-12-18 20:57:29 2024-12-18 20:57:29 Emergency EL MARIBETH FRIEDMAN SLECleo SLEH [id number] SLE 2024-12-18 00:00:00 2024-12-18 16:23:31 Orders Only Rios Lucero [facility] [id number] [facility] 2024-12-18 00:00:00 2024-12-18 16:23:31 Orders Only Rios Lucero [facility] [id number] [facility] 2024-12-18 08:00:00 2024-12-18 08:30:00 Office Visit Rios Lucero [facility] [id number] [facility] 2024-12-18 08:00:00 2024-12-18 08:30:00 Office Visit Rios Lucero [facility] [id number] [facility] 2024-12-18 08:09:48 2024-12-18 08:09:48 Outpatient EL RIOS LUCERO [facility] SLE [id number] SLE 2024-12-08 16:21:00 2024-12-13 18:10:00 Hospital Encounter Dwayne Fritz Kelly Daniel, Damir Jerry, Dara Yu, Fabio Ng [facility] [id number] [facility] 2024-12-08 16:21:00 2024-12-13 18:10:00 Hospital Encounter Dwayne Fritz Kelly Daniel, Damir Jerry, Dara H Aimee, Fabio Ng [facility] [id number] [facility] 2024-12-12 00:00:00 2024-12-12 15:16:27 Abstract Dieter Melendez [facility] [id number] [facility] 2024-12-12 00:00:00 2024-12-12 15:16:27 Abstract Dieter Melendez [facility] [id number] [facility] 2024-12-12 00:00:00 2024-12-12 15:15:50 Abstract Dieter Melendez [facility] [id number] [facility] 2024-12-12 00:00:00 2024-12-12 15:15:50 Abstract Dieter Melendez [facility] [id number] [facility] 2024-12-12 00:00:00 2024-12-12 00:00:00 Outpatient NIK VALDIVIA [id number] Jennifer Florez 2024-12-08 00:00:00 2024-12-08 00:00:00 Lab Requisitio n [facility] [id number] [facility] 2024-12-08 00:00:00 2024-12-08 00:00:00 Lab Requisitio n [facility] [id number] [facility] 2024-12-08 00:00:00 2024-12-08 00:00:00 Travel [facility] [id number] [facility] 2024-12-08 00:00:00 2024-12-08 00:00:00 Travel [facility] [id number] [facility] 2024-11-06 15:29:58 2024-11-06 15:29:58 Outpatient SFA SFA [id number] Arun Montenegro 2024-11-06 00:00:00 2024-11-06 00:00:00 Outpatient Visit SFA [id number] Arun Montenegro 2024-08-30 13:59:02 2024-08-30 13:59:02 Outpatient SFA SFA [id number] Arun Montenegro 2024-08-30 00:00:00 2024-08-30 00:00:00 Outpatient Visit SFA [id number] Arun Montenegro 2024-07-19 11:11:36 2024-07-19 11:11:36 Outpatient SFA SFA [id number] Arun Montenegro 2024-07-19 00:00:00 2024-07-19 00:00:00 Outpatient Visit SFA [id number] Arun Montenegro 2024-07-10 15:10:00 2024-07-10 18:37:00 Emergency Freddie March [facility] 1.2.840.114 350.1.13.10 4.2.7.2.686 [id number] [facility] 2024-05-30 00:00:00 2024-06-30 18:18:47 Patient Secure Msg Doctor Unassigned, Helena Doctor Unassigned, Helena [facility] [place] 1.84.114 350.1.13.10 4.2.7.2.686 [id number] [facility] 2024-06-21 15:30:00 2024-06-21 15:30:00 Outpatient FLAKITO CAINSEY JENNIFER [id number] Jennifer Seantoni 2024-05-28 00:00:00 2024-05-28 12:08:14 Letter (Out) Neurology [facility] 1.84.114 350.1.13.10 4.2.7.2.686 [id number] [facility] 2024-05-27 19:44:00 2024-05-27 22:59:00 Emergency X GORDY RANDOLPH [facility] ERT [id number] [facility] 2024-05-27 19:44:00 2024-05-27 22:59:00 Emergency Godry Randolph [facility] 1.840.114 350.1.13.10 4.2.7.2.686 [id number] [facility] 2024-05-24 15:51:34 2024-05-24 15:51:34 Outpatient SFA SFA [id number] Arun Montenegro 2024-05-24 00:00:00 2024-05-24 00:00:00 Outpatient Visit SFA [id number] Arun Montenegro 2024-05-16 14:30:00 2024-05-16 15:34:46 Telemedici ne Charlie Rachel [facility] [address] [facility] 1.840.114 350.1.13.58 9.2.7.2.686 [id number] [facility] 2024-05-15 15:36:32 2024-05-15 15:36:32 Outpatient SFA SFA [id number] Arun Montenegro 2024-05-15 00:00:00 2024-05-15 00:00:00 Outpatient Visit SFA [id number] Arun Montenegro 2024-05-04 18:22:00 2024-05-04 22:46:00 Emergency Tamy Morales [facility] 1.2.840.114 350.1.13.10 4.2.7.2.686 [id number] [facility] 2024-05-04 18:22:00 2024-05-04 22:46:00 Emergency X TAMY MORALES [facility] [id number] [facility] 2024-04-17 15:05:00 2024-04-22 20:08:00 Inpatient E JOSE MIGUELOLINO-CO ZEB KEANE [facility] [id number] [facility] 2024-04-17 15:43:00 2024-04-17 23:59:00 Outpatient BRITTANIE ZEPEDA [facility] [id number] [facility] 2024-04-09 00:00:00 2024-04-09 00:00:00 Outpatient NIK VALDIVIA [id number] [facility] 2024-02-15 15:00:00 2024-02-15 15:00:00 Outpatient JENNIFER GEORGE [id number] Jennifer [facility] 2024-02-14 14:00:00 2024-02-14 14:00:00 Outpatient NIK VALDIVIA [id number] Jennifer [facility] 2024-02-13 00:00:00 2024-02-13 00:00:00 Outpatient NIK VALDIVIA [id number] Jennifer Florez 2024-01-12 07:40:00 2024-01-12 07:40:00 Outpatient JENNIFER GEORGE [id number] Jennifer Floerz 2024-01-10 08:20:00 2024-01-10 08:20:00 Outpatient JENNIFER GEORGE [id number] Jennifer Florez 2024-01-10 00:00:00 2024-01-10 00:00:00 Outpatient NIK VALDIVIA JENNIFER GEORGE [id number] Jennifer Florez 2024-01-10 00:00:00 2024-01-10 00:00:00 Outpatient DAIANA VALDIVIACHRISTIAN GEORGE [id number] Jennifer Florez 2024-01-06 00:00:00 2024-01-06 00:00:00 Outpatient MD JENNIFER KOEHLER [id number] Jennifer Florez 2024-01-06 00:00:00 2024-01-06 00:00:00 Outpatient MD JENNIFER KOEHLER [id number] Jennifer Florez 2024-01-03 15:30:00 2024-01-03 15:30:00 Outpatient NIK VALDIVIA JENNIFER GEORGE [id number] Jennifer Florez 2017-01-04 07:56:27 2017-01-04 11:06:00 Emergency X JONNA GUY [facility] ERT [id number] [facility] Results Test Description Test Time Test Comments Results Result Co mments Source The Alinity ci High Sensitivity Troponin-I results should be used in conjunction with other diagnostic information such as ECG, clinical observations and information, and patient symptoms to aid in the diagnosis of MN.ECG/EKG [id number] 22:38:53* Test Item Value Reference Range Interpretation Comme nts BLANCA (test code = BLANCA) Thea Camacho MD 07/11/2025 4:18 PMECG/EKG Interpretation Date/Time: 07/09/2025 10:38 PM Performed by: Thea Camacho MDAuthorized by: Thea Camacho MD The ECG was interpreted by ED physician. This ECG was not compared with previous ECG(s).Rate is normal rate. Heart rate is 75 BPM.ST segments normal. T waves normal. Gonzales is normal. Other findings include: prolonged QTc interval. Clinical Impression: abnormal ECGECG reviewed and does not meet STEMI criteria. Lab Interpretation (test code = 51721-3) [facility] / [id number] 22:01:08 CLINICAL HISTORY: Female, 54 years old EMESISBACK PAIN TECHNIQUE: 1 view of the chest. COMPARISON: 06/03/2025 FINDINGS/[facility] PORT[facility] / [id number] 22:01:[address] : 1970 Sex: FCLINICAL HISTORY: Female, 54 years old EMESISBACK PAINTECHNIQUE: 1 view of the chest.COMPARISON: 06/03/2025FINDINGS/IMPRESSION:No consolidation or pulmonary edema. No pleural effusion orpneumothorax.The cardiac mediastinal silhouette is magnified by technique. No prominent osteolytic or sclerotic lesions are seen.Electronically Signed By: Magdaleno Putnam MD07/09/2025 22:03 CDTWorkstation Name: [id number] COMPREHENSIVE METABOLIC [id number] 21:58:39* Test Item Value Reference Range Interpretation Comme nts TOTAL PROTEIN (BEAKER) (test code = 770) 7.7 gm/dL 6.4-8.3 ALBUMIN (BEAKER) (test code = 1145) 3.5 g/dL 3.1-4.5 ALKALINE PHOSPHATASE (BEAKER) (test code = 346) 145 U/L 40-150 BILIRUBIN TOTAL (BEAKER) (test code = 377) 4.4 mg/dL 0.3-1.2 H SODIUM (BEAKER) (test code = 381) 134 meq/L 136-145 L POTASSIUM (BEAKER) (test code = 379) 4.0 meq/L 3.4-5.1 CHLORIDE (BEAKER) (test code = 382) 104 meq/L 98-107 CO2 (BEAKER) (test code = 355) 24 meq/L 22-29 BLOOD UREA NITROGEN (BEAKER) (test code = 354) 8 mg/dL 10-20 L CREATININE (BEAKER) (test code = 358) 0.70 mg/dL 0.50-1.10 GLUCOSE RANDOM (BEAKER) (test code = 652) 99 mg/dL 70-105 CALCIUM (BEAKER) (test code = 697) 9.3 mg/dL 8.4-10.2 AST (SGOT) (BEAKER) (test code = 353) 56 U/L 11-34 H ALT (SGPT) (BEAKER) (test code = 347) 15 U/L <34 EGFR (BEAKER) (test code = 1092) 102 mL/min/1.73 sq m Interpretation of eG FR [...] not applicable for dialysis patients Specimen moderately [id number] 21:56:28* Test Item Value Reference Range Interpretation Comme nts LIPASE (BEAKER) (test code = 749) 19 U/L <=60 Specimen moderately ictericUrinalysis Microscopic [id number] 21:37:59* Test Item Value Reference Range Interpretation Comme nts RBC, UA (test code = 74892-9) 0 See_Comment [Automated [employer]] The system which generated this result transmitted reference range: /HPF. The reference range was not used to interpret this result as normal/abnormal. WBC, UA (test code = 5821-4) 5 See_Comment [Automated Meet My Friendsa Premise] The system which generated this result transmitted reference range: /HPF. The reference range was not used to interpret this result as normal/abnormal. Bacteria, UA (test code = 84599-5) Rare Squam Epithel, UA (test code = 88897-6) 14 See_Comment [Automated messa ge] The system which generated this result transmitted reference range: /HPF. The reference range was not used to interpret this result as normal/abnormal. Ca Oxalate Marlene, UA (test code = 98415-9) Few BLANCA (test code = BLANCA) Fundraising Manager ID - tech [facility]INAL[facility] [id number] 21:37:59* Test Item Value Reference Range Interpretation Comme nts RBC UA (BEAKER) (test code = 519) 0 /HPF WBC UA (BEAKER) (test code = 520) 5 /HPF BACTERIA (BEAKER) (test code = 517) Rare SQUAMOUS EPITHELIAL (BEAKER) (test code = 516) 14 /HPF CALCIUM OXALATE CRYSTALS (BE TACOS) (test code = 518) Few Fundraising Manager ID - techUrinalysis with Microscopic If [id number] 21:36:02* Test Item Value Reference Range Interpretation Comme nts Color, UA (test code = 5778-6) Yellow Clarity, UA (test code = 5767-9) Hazy Specific [place], UA (test code = 5811-5) 1.023 1.001-1.035 pH, UA (test code = 5803-2) 6.0 5.0-8.0 Protein, UA (test code = 09923-3) 10 mg/dL Negative A Glucose, UA (test code = 365) Negative Negative Ketones, UA (test code = 2514-8) Negative Negative Bilirubin, UA (test code = 51117-4) Negative Negative Blood, UA (test code = 28672-6) Negative Negative Nitrite, UA (test code = 5802-4) Negative Negative Leukocytes, UA (test code = 5799-2) Negative Negative Urobilinogen, UA (test code = 25668-9) 4 0.2-1.0 H Specimen Source (test code = 2795) BLANCA (test code = BLANCA) Fundraising Manager ID - [auto] Lab Interpretation (test code = 18016-1) [facility] [id number] 21:36:02* Test Item Value Reference Range Interpretation Comme nts COLOR (BEAKER) (test code = 470) Yellow CLARITY (BEAKER) (test code = 469) Hazy SPECIFIC GRAVITY UA (BEAKER) (test code = 468) 1.023 1.001-1.035 PH UA (BEAKER) (test code = 467) 6.0 5.0-8.0 PROTEIN UA (BEAKER) (test co de = 464) 10 mg/dL Negative A GLUCOSE UA (BEAKER) (test [...] st code = 463) 4 0.2-1.0 H SOURCE(BEAKER) (test code = 2795) Fundraising Manager ID - [auto]CBC W/PLT COUNT & AUTO [id number] 21:31:03* Test Item Value Reference Range Interpretation Comme nts WHITE BLOOD CELL COUNT (BEAK ER) (test code = 775) 3.4 K/ L 3.5-10.5 L RED BLOOD CELL COUNT (BEAKER ) (test code = 761) 3.41 M/ L 3.93-5.22 L HEMOGLOBIN (BEAKER) (test co de = 410) 11.8 GM/DL 11.2-15.7 HEMATOCRIT (BEAKER) (test co de = 411) 35.4 % 34.1-44.9 MEAN CORPUSCULAR VOLUME (LUCAS KER) (test code = 753) 104 fL 79-95 H MEAN CORPUSCULAR HEMOGLOBIN (BEAKER) (test code = 751) 34.6 pg 25.6-32.2 H MEAN CORPUSCULAR HEMOGLOBIN CONC (BEAKER) (test code = 752) 33.3 GM/DL 32.2-35.5 RED CELL DISTRIBUTION WIDTH (BEAKER) (test code = 412) 17.9 % 11.7-14.4 H PLATELET COUNT (BEAKER) (troy t code = 756) 149 K/CU MM 150-450 L MEAN PLATELET VOLUME (BEAKER ) (test code = 754) 11.4 fL 9.4-12.3 NUCLEATED RED BLOOD CELLS (BEAKER) (test code = 413) 0 /100 WBC 0-0 NEUTROPHILS RELATIVE PERCENT (BEAKER) (test code = 429) 52 % LYMPHOCYTES RELATIVE PERCENT (BEAKER) (test code = 430) 30 % MONOCYTES RELATIVE PERCENT (BEAKER) (test code = 431) 14 % EOSINOPHILS RELATIVE PERCENT (BEAKER) (test code = 432) 4 % BASOPHILS RELATIVE PERCENT (BEAKER) (test code = 437) 1 % NEUTROPHILS ABSOLUTE COUNT (BEAKER) (test code = 670) 1.77 K/ L 1.56-6.13 LYMPHOCYTES ABSOLUTE COUNT (BEAKER) (test code = 414) 1.03 K/ L 1.18-3.74 L MONOCYTES ABSOLUTE COUNT (BE TACOS) (test code = 415) 0.47 K/ L 0.24-0.36 H EOSINOPHILS ABSOLUTE COUNT (BEAKER) (test code = 416) 0.12 K/ L 0.04-0.36 BASOPHILS ABSOLUTE COUNT (BE TACOS) (test code = 417) 0.03 K/ L 0.01-0.08 IMMATURE GRANULOCYTES-RELATI VE PERCENT (BEAKER) (test code = 2801) 0.30 % 0.00-1.00 MFE-[id number] 00:00:00Ordered by an unspecified provider.[facility] abdomen [id number] 02:47:05EXAM: Limited abdominal ultrasound INDICATION: ascites COMPARISON: None. TECHNIQUE: Casarez scale sonog raphic evaluation of the four quadrants ofthe abdomen was performed. FINDINGS/ [facility] ABDOMEN [id number] 02:47:05 [facility] : 1970 Sex: FEXAM: Limited abdominal ultrasoundINDICATION: ascitesCOMPARISON: None. TECHNIQUE: Casarez scale sonographic evaluation of the four quadrants ofthe abdomen was performed.FINDINGS/IMPRESSION:Minimal trace ascites, insufficient for paracentesis to be safe or ofmeaningful therapeutic benefit.Electronically Signed By: Alejo Cordoba07/06/2025 02:49 CDTWorkstation Name: [id number] Time / [id number] 23:27:23* Test Item Value Reference Range Interpretation Comme nts PROTIME PATIENT (test code = 5964-2) 17.7 10.1-12.6 H INR (test code = 6301-6) 1.5 <=4.5 Normal INR <1.1; Warfarin Therapeutic range 2.0 to 3.0 or 2.5 to 3.5, depending upon the indications. Lab Interpretation (test code = 50214-6) Abnormal [facility] CenterCOMPREH[facility] METABOL[facility] [id number] 17:23:58* Test Item Value Reference Range Interpretation Comme nts TOTAL PROTEIN (BEAKER) (test code = 770) 6.9 gm/dL 6.4-8.3 ALBUMIN (BEAKER) (test code = 1145) 3.2 g/dL 3.1-4.5 ALKALINE PHOSPHATASE (BEAKER) (test code = 346) 127 U/L 40-150 BILIRUBIN TOTAL (BEAKER) (test code = 377) 3.8 mg/dL 0.3-1.2 H SODIUM (BEAKER) (test code = 381) 137 meq/L 136-145 POTASSIUM (BEAKER) (test code = 379) 3.8 meq/L 3.4-5.1 CHLORIDE (BEAKER) (test code = 382) 106 meq/L 98-107 CO2 (BEAKER) (test code = 355) 23 meq/L 22-29 BLOOD UREA NITROGEN (BEAKER) (test code = 354) 6 mg/dL 10-20 L CREATININE (BEAKER) (test code = 358) 0.81 mg/dL 0.50-1.10 GLUCOSE RANDOM (BEAKER) (test code = 652) 180 mg/dL 70-105 H CALCIUM (BEAKER) (test code = 697) 8.7 mg/dL 8.4-10.2 AST (SGOT) (BEAKER) (test code = 353) 53 U/L 11-34 H ALT (SGPT) (BEAKER) (test code = 347) 14 U/L <34 EGFR (BEAKER) (test code = 1092) 86 mL/min/1.73 sq m Interpretation of eG FR [...] applicable for dialysis patients Specimen slightly ictericBILIRUBIN, [id number] 17:20:23* Test Item Value Reference Range Interpretation Comme nts BILIRUBIN DIRECT (BEAKER) (t est code = 706) 1.7 mg/dL 0.1-0.5 H PROTHROMBIN TIME/[id number] 17:04:39* Test Item Value Reference Range Interpretation Comme nts PROTIME (BEAKER) (test code = 759) 17.7 seconds 9.9-12.7 H INR (BEAKER) (test code = 370) 1.58 See Comment RECOMMENDED COUMADIN/WARFARIN INR THERAPY RANGESSTANDARD DOSE: 2.0 - 3.0 Includes: PROPHYLAXIS for venous thrombosis, systemic embolization; TREATMENT for venous thrombosis and/or pulmonary embolus.HIGH RISK: Target INR is 2.5-3.5 for patients with mechanical heart valves.Fundraising Manager ID -CBC W/PLT COUNT & AUTO [id number] 16:47:14* Test Item Value Reference Range Interpretation [...] = 2801) 0.20 % 0.00-1.00 ECG 12 [id number] 11:06:17Ventricular Rate 77 BPMAtrial Rate 77 BPMP-R Interval 166 msQRS Duration 88 msQ-T Interval 434 msQTC Calculation(Bazett) 491 msP Gonzales 25 degreesR Gonzales -24 degreesT Gonzales 23 degrees Normal sinus rhythmM inimal voltage criteria for LVH, may be normal variantT wave inversion in V1-V2 consider ischemiaProlonged QTAbnormal ECGWhen compared with ECG of 15-MAY-2025 22:45,Poor R wave progression has improvedConfirmed by MD HUNTER YOCHAI ([id number]) on 06/04/2025 11:06:13 [facility]EC[facility] [id number] 11:06:17Ventricular Rate 77 BPMAtrial Rate 77 BPMP-R Interval 166 msQRS Duration 88 msQ-T Interval 434 msQTC Calculation(Bazett) 491 msP Gonzales 25 degreesR Gonzales - 24 degreesT Gonzales 23 degrees Normal sinus rhythmMinimal voltage criteria for LVH, may be normal variantT wave inversion in V1-V2 consider ischemiaProlonged QTAbnormal ECGWhen compared with ECG of 15-MAY-2025 22:45,Poor R wave progression has improvedConfirmed by MD HUNTER YOCHAI ([id number]) on 06/04/2025 11:06:13 [facility] HospitalHIGH SENSITIVITY TROPONIN [id number] 23:59:46* Test Item Value Reference Range Interpretation Comme nts HIGH SENSITIVITY TROPONIN I (test code = 8683747) 5 pg/ml <14 The Alinity ci High Sensitivity Troponin-I results should be used in conjunction with other diagnostic information such as ECG, clinical observations and information, and patient symptoms to aid in the diagnosis of MN.CT ABDOMEN/PELVIS WITHOUT IV CONTRAST Standard Lggybvdr5789-76-13 23:51:35 TECHNIQUE: CT of the abdomen and [...] TISSUES: No acute osseous abnormality. Soft tissues areunremarkable.[facility] IV CONTRAST Standard Xndylyci2687-54-64 23:51:35 TECHNIQUE: CT of the abdomen and [...] TISSUES: No acute osseous abnormality. Soft tissues areunremarkable.[facility] CenterCT [facility]LV[facility] WITHOUT IV [id number] 23:51:[address] [facility] : 1970 Sex: FTECHNIQUE: [...] Signed By: Jonna Marroquin06/03/2025 23:54 CDTWorkstation Name: [id number] chest 1 view portable / umdrqop6763-65-97 21:38:09INDICATION: SOB COMPARISON: 03/29/2025 TECHNIQUE: Single frontal view of the chest. FINDINGS: Lungs and pleura: Clear lungs. No effusion. Heart and mediastinum: Normal heart size. Unremarkable mediastinalcontours. Osseous structures: No acute abnormality. Other: None.[facility] CenterXR CHEST 1 VIEW PORTABLE / BEDSIDE 2025-06-03 21:38:09 [facility] : 1970 Sex: FINDICATION: SOBCOMPARISON: 03/29/2025TECHNIQUE: Single frontal view of the chest.FINDINGS: Lungs and pleura: Clear lungs. No effusion.Heart and mediastinum: Normal heart size. Unremarkable mediastinalcontours.Osseous structures: No acute abnormality.Other: None.IMPRESSION:No acute intrathoracic abnormality.Electronically Signed By: Jonna Marroquin06/03/2025 21:40 CDTWorkstation Name: [id number] SENSITIVITY TROPONIN [id number] 21:31:05* Test Item Value Reference Range Interpretation Comme nts HIGH SENSITIVITY TROPONIN I (test code = 5818149) 6 pg/ml <14 The Alinity ci High Sensitivity Troponin-I results should be used in conjunction with other diagnostic information such as ECG, clinical observations and information, and patient symptoms to aid in the diagnosis of MN.COMPREHENSIVE METABOLIC [id number] 21:29:49* Test Item Value Reference Range Interpretation [...] Specimen slightly ictericCBC W/PLT COUNT & AUTO [id number] 20:40:40 * Test Item Value Reference Range [...] % 0.00-1.00 Urinalysis w/Microscopic + Reflex to Ppxnddq3895-34-79 19:42:21* Test Item Value Reference Range Interpretation Comme nts Color, UA (test code = 5778-6) Yellow Clarity, UA (test code = 5767-9) Hazy Specific [place], UA (test code = 5811-5) 1.016 1.001-1.035 pH, UA (test code = 5803-2) 6.5 5.0-8.0 Protein, UA (test code = 61244-4) Negative Negative Glucose, UA (test code = 365) Negative Negative Ketones, UA (test code = 2514-8) Negative Negative Bilirubin, UA (test code = 18526-7) Negative Negative Blood, UA (test code = 33935-0) Negative Negative Nitrite, UA (test code = 5802-4) Negative Negative Leukocytes, UA (test code = 5799-2) Small Negative A Urobilinogen, UA (test code = 92345-7) 12 0.2-1.0 H RBC, UA (test code = 35627-4) 2 See_Comment [Automated message] The system which generated this result transmitted reference range: /HPF. The reference range was not used to interpret this result as normal/abnormal. WBC, UA (test code = 5821-4) 3 See_Comment [Automated message] The system which generated this result transmitted reference range: /HPF. The reference range was not used to interpret this result as normal/abnormal. Bacteria, UA (test code = 69418-1) Rare Squam Epithel, UA (test code = 03969-7) 2 See_Comment [Automated message] The system which generated this result transmitted reference range: /HPF. The reference range was not used to interpret this result as normal/abnormal. Specimen Source (test code = 2795) BLANCA (test code = BLANCA) Fundraising Manager ID - [auto]Fundraising Manager ID - tech Lab Interpretation (test code = 87315-8) Abnormal [facility]inal[facility] + Reflex to Culture 2025-06-03 19:42:21* Test Item Value Reference Range Interpretation Comme nts Color, UA (test code = 5778-6) Yellow Clarity, UA (test code = 5767-9) Hazy Specific [place], UA (test code = 5811-5) 1.016 1.001-1.035 pH, UA (test code = 5803-2) 6.5 5.0-8.0 Protein, UA (test code = 87067-1) Negative Negative Glucose, UA (test code = 365) Negative Negative Ketones, UA (test code = 2514-8) Negative Negative Bilirubin, UA (test code = 16812-1) Negative Negative Blood, UA (test code = 35969-8) Negative Negative Nitrite, UA (test code = 5802-4) Negative Negative Leukocytes, UA (test code = 5799-2) Small Negative A Urobilinogen, UA (test code = 15451-5) 12 0.2-1.0 H RBC, UA (test code = 71460-3) 2 See_Comment [Automated message] The system which generated this result transmitted reference range: /HPF. The reference range was not used to interpret this result as normal/abnormal. WBC, UA (test code = 5821-4) 3 See_Comment [Automated message] The system which generated this result transmitted reference range: /HPF. The reference range was not used to interpret this result as normal/abnormal. Bacteria, UA (test code = 34426-4) Rare Squam Epithel, UA (test code = 62044-5) 2 See_Comment [Automated message] The system which generated this result transmitted reference range: /HPF. The reference range was not used to interpret this result as normal/abnormal. Specimen Source (test code = 2795) BLANCA (test code = BLANCA) Fundraising Manager ID - [auto]Fundraising Manager ID - tech Lab Interpretation (test code = 62726-7) Abnormal [facility] CenterURINALYSIS W/ REFLEX URINE [id number] 19:42:21 * Test Item Value Reference Range [...] 2 /HPF SOURCE(BEAKER) (test code = 2795) Fundraising Manager ID - [auto]Fundraising Manager ID - eqlzIDE-RLJMWLJ2782-78-04 00:00:00Ordered by an unspecified provider.[facility] CenterCT [facility]/PELVIS WITH IV CONTRAST Standard Lqathsus6758-02-93 00:16:58EXAM/TECHNIQUE: CT of the abdomen and pelvis [...] No acute osseous process. No suspicious osseous lesions.[facility] CenterCT [facility]/PELVIS WITH IV CONTRAST Standard Robrjfmo2506-17-09 00:16:58EXAM/TECHNIQUE: CT of the abdomen and pelvis with IV contrast. 3Drendering was not performed. Dose modulation, iterative reconstruction,and/or weight based adjustment of the mA/kV was utilized to redu ce theradiation dose to as low as reasonably [...] Mesentery: No ascites. No pneumoperitoneum. Mild mesenteric edema. Pelvis: The uterus is not visualized, possibly surgically absent. Nosuspicious adnexal mass. Unremarkable appearance of the bladder. Vessels: Splenic varices are present. Osseous: No acute osseous process. No suspicious osseous lesions.[facility] CT ABDOMEN/PELVIS WITH IV [id number] 00:16:[address] [facility] : 1970 Sex: FEXAM/TECHNIQUE: CT of the abdomen and pelvis with IV contrast. 3Drendering was notperformed. Dose modulation, iterative reconstruction,and/or weight based adjustment of the mA/kV was utilized to reduce theradiation dose to as low as reasonably achievable.INDICATION: Abdominal pain, acute, nonlocalizedCOMPARISON: CT body from 05/01/2025.FINDINGS:Lower thorax: No focal consolidationor suspicious pulmonary nodule. Thevisualized heart is unremarkable.Liver: Slightly irregular contour of the liver. The main portal vein ispatent.Biliary: The gallbladder is surgically absent. Unremarkable appearanceof the biliary ducts.Spleen: Splenomegaly measuring 14 cm in AP dimension.Pancreas:Unremarkable.Adrenals: Unremarkable.Kidneys: Symmetric bilateral nephrograms. No hydronephrosis. No focalrenal mass.Bowel: Normal appearance of the colon. The appendix is surgicallyabsent. The small bowel is normal in appearance without findings ofobstruction. Mural thickening of the stomach.Lymph nodes: No lymphadenopathy by size criteria.Mesentery: No ascites. No pneumoperitoneum. Mild mesenteric edema.Pelvis: The uterus is not visualized, possibly surgically absent. Nosuspicious adnexal mass. Unremarkable appearance of the bladder.Vessels: Splenic varices are present.Osseous: No acute osseous process. No suspicious osseous lesions.IMPRESSION:1. Cirrhotic liver morphology with splenomegaly and mild mesentericedema.2. Mural thickening of the stomach may represent gastritis or venouscongestion.Electronically Signed By: William Lara05/16/2025 00:19 CDTWorkstation Name: [id number] SENSITIVITY TROPONIN [id number] 23:15:12 * Test Item Value Reference Range Interpretation Comme nts HIGH SENSITIVITY TROPONIN I (test code = 0883274) < pg/ml <14 The Alinity ci High Sensitivity Troponin-I results should be used in conjunction with other diagnostic information such as ECG, clinical observations and information, and patient symptoms to aid in the diagnosis of MN.HEPATIC FUNCTION [id number] 23:05:13* Test Item Value Reference Range Interpretation [...] 11 U/L <34 Specimen moderately ictericBASIC METABOLIC [id number] 23:04:13* Test Item Value Reference Range Interpretation Comme nts SODIUM (BEAKER) (test code = 381) 135 meq/L 136-145 L POTASSIUM (BEAKER) (test code = 379) 3.2 meq/L 3.4-5.1 L CHLORIDE (BEAKER) (test code = 382) 103 meq/L 98-107 CO2 (BEAKER) (test code = 355) 25 meq/L 22-29 BLOOD UREA NITROGEN (BEAKER) (test code = 354) 5 mg/dL 10-20 L CREATININE (MANNY) (test code = 358) 0.71 mg/dL 0.50-1.10 GLUCOSE RANDOM (MANNY) (test code = 652) 96 mg/dL 70-105 CALCIUM (МАРИНАAKER) (test code = 697) 9.1 mg/dL 8.4-10.2 EGFR (MANNY) (test code = 1092) 100 mL/min/1.73 sq [...] not applicable for dialysis patients Specimen moderately akgrgmpLTGNFP3162-05-51 23:04:13* Test Item Value Reference Range Interpretation Comme nts LIPASE (MANNY) (test code = 749) 25 U/L <=60 Specimen moderately ictericPROTHROMBIN TIME/[id number] 22:53:29* Test Item Value Reference Range Interpretation Comme nts PROTIME (MANNY) (test code = 759) 18.4 seconds 9.9-12.7 H INR (MANNY) (test code = 370) 1.64 See Comment RECOMMENDED COUMADIN/WARFARIN INR THERAPY RANGESSTANDARD DOSE: 2.0 - 3.0 Includes: PROPHYLAXIS for venous thrombosis, systemic embolization; TREATMENT for venous thrombosis and/or pulmonary embolus.HIGH RISK: Target INR is 2.5-3.5 for patients with mechanical heart valves.Fundraising Manager ID -ECG/EKG Interpretation 2025-05-15 22:51:18Lance Hatch MD 05/16/2025 12:38 AMECG/EKG Interpretation Date/Time: 05/15/2025 10:51 PM Performed by: Lance Hatch MDAuthorized by: Lance Hatch MD The ECG was interpreted by ED physician.This ECG was not compared with previous ECG(s).The ECG is interpreted as sinus rhythm. Heart rate is 70 BPM.Conduction: conduction normal. ST segments normal. T waves normal. T- wave inversion in lead(s) III. Gonzales is normal. Clinical Impression: normal ECGECG reviewed and does not meet STEMI criteria.[facility] W/PLT COUNT & AUTO [id number] 22:44:51* Test Item Value Reference Range Interpretation [...] 412) 13.6 % 11.7-14.4 PLATELET COUNT (BEAKER) (rtoy t code = 756) 144 K/CU MM [...] 0.20 % 0.00-1.00 ALPHA FETOPROTEIN (AFP), TUMOR [id number] 14:57:53* Test Item Value Reference Range Interpretation Comme nts ALPHA-FETOPROTEIN (BEAKER) ( test code = 1094) 6.5 ng/mL 0.9-8.8 COMPREHENSIVE METABOLIC [id number] 14:45:38* Test Item Value Reference Range Interpretation [...] not applicable for dialysis patients Specimen moderately bafxggiNVXFIAFTG1034-81-15 14:44:47* Test Item Value Reference Range Interpretation Comme nts MAGNESIUM (BEAKER) (test cod e = 627) 1.9 mg/dL 1.6-2.6 BILIRUBIN, [id number] 14:44:47* Test Item Value Reference Range Interpretation Comme nts BILIRUBIN DIRECT (BEAKER) (t est code = 706) 1.4 mg/dL 0.1-0.5 H CBC W/PLT COUNT & AUTO [id number] 14:26:25* Test Item Value Reference Range Interpretation [...] code = 2801) 0.20 % 0.00-1.00 PROTHROMBIN TIME/[id number] 14:24:42* Test Item Value Reference Range Interpretation Comme nts PROTIME (BEAKER) (test code = 759) 17.9 seconds 9.9-12.7 H INR (BEAKER) (test code = 370) 1.60 See Comment RECOMMENDED COUMADIN/WARFARIN INR THERAPY RANGESSTANDARD DOSE: 2.0 - 3.0 Includes: PROPHYLAXIS for venous thrombosis, systemic embolization; TREATMENT for venous thrombosis and/or pulmonary embolus.HIGH RISK: Target INR is 2.5-3.5 for patients with mechanical heart valves.Fundraising Manager ID -BLOOD [id number] 19:02:08* Test Item Value Reference Range Interpretation Comme nts CULTURE (BEAKER) (test code = 1095) No growth in 5 days The specimen volume collected for this blood culture was below the optimum (10 mL per bottle or 20 mL total). Use of lower volumes may adversely affect recovery and/or detection times of some organisms.BLOOD [id number] 19:02:08* Test Item Value Reference Range Interpretation Comme nts CULTURE (BEAKER) (test code = 1095) No growth in 5 days The specimen volume collected for this blood culture was below the optimum (10 mL per bottle or 20 mL total). Use of lower volumes may adversely affect recovery and/or detection times of some organisms.US abdomen [id number] 21:25:28EXAM: Limited abdominal ultrasound INDICATION: ABDOMINAL PAINEMESIS COMPARISON: None. TECHNIQUE: Casarez scale sonographic evaluation of the four quadrants ofthe abdomen was performed. [facility] [id number] 21:25:28 [facility] : 1970 Sex: FEXAM: Limited abdominal ultrasoundINDICATION: ABDOMINAL PAINEMESISCOMPARISON: None.TECHNIQUE: Casarez scale sonographic evaluation of the four quadrants ofthe abdomen was performed.FINDINGS/IMPRESSION:No ascites, insufficient for paracentesis to be safe or of meaningfultherapeutic benefit.Electronically Signed By: Alejo Cordoba05/03/2025 21:27 CDTWorkstation Name: [id number] METABOLIC [id number] 06:30:51* Test Item Value Reference Range Interpretation [...] 413) 0 /100 WBC 0-0 BASIC METABOLIC [id number] 06:41:19* Test Item Value Reference Range Interpretation [...] not applicable for dialysis patients HEPATIC FUNCTION [id number] 06:11:05* Test Item Value Reference Range Interpretation [...] 9 U/L <34 Specimen sligh tly hemolyzed [id number] 06:07:59* Test Item Value Reference Range Interpretation Comme nts MAGNESIUM (BEAKER) (test code = 627) 1.4 mg/dL 1.6-2.6 L Specimen sligh tly hemolyzed PROTHROMBIN TIME/[id number] 05:47:40* Test Item Value Reference Range Interpretation Comme nts PROTIME (BEAKER) (test code = 759) 15.7 seconds 9.9-12.7 H INR (BEAKER) (test code = 370) 1.40 See Comment RECOMMENDED COUMADIN/WARFARIN INR THERAPY RANGESSTANDARD DOSE: 2.0 - 3.0 Includes: PROPHYLAXIS for venous thrombosis, systemic embolization; TREATMENT for venous thrombosis and/or pulmonary embolus.HIGH RISK: Target INR is 2.5-3.5 for patients with mechanical heart valves.Fundraising Manager ID -CBC W/PLT COUNT & AUTO FCTEQZNWDNQJ3115-72-71 05:33:30* Test Item Value Reference Range Interpretation [...] = 2801) 0.50 % 0.00-1.00 US ABDOMEN [id number] 23:10:37 [facility] : 1970 Sex: FTECHNIQUE: [...] Signed By: Jonna Marroquin05/01/2025 23:12 CDTWorkstation Name: [id number] ABDOMEN/PELVIS WITHOUT IV [id number] 21:49:56[facility] : 1970 Sex: F EXAMINATION: [...] Signed By: Richy Boston05/01/2025 21:52 CDTWorkstation Name: [id number] FUNCTION [id number] 18:14:31* Test Item Value Reference Range Interpretation [...] 12 U/L <34 Specimen slightly ictericBASIC METABOLIC [id number] 18:13:05* Test Item Value Reference Range Interpretation [...] not applicable for dialysis patients Specimen slightly lwctkgjCSYITO0940-94-05 18:13:05* Test Item Value Reference Range Interpretation Comme nts LIPASE (BEAKER) (test code = 749) 63 U/L <=60 H Specimen slightly ictericPROTHROMBIN TIME/[id number] 17:49:25* Test Item Value Reference Range Interpretation Comme nts PROTIME (BEAKER) (test code = 759) 15.1 seconds 9.9-12.7 H INR (BEAKER) (test code = 370) 1.34 See Comment RECOMMENDED COUMADIN/WARFARIN INR THERAPY RANGESSTANDARD DOSE: 2.0 - 3.0 Includes: PROPHYLAXIS for venous thrombosis, systemic embolization; TREATMENT for venous thrombosis and/or pulmonary embolus.HIGH RISK: Target INR is 2.5-3.5 for patients with mechanical heart valves.Fundraising Manager ID -SFBU0737-20-51 17:49:25* Test Item Value Reference Range Interpretation Comme nts PARTIAL THROMBOPLASTIN TIME (BEAKER) (test code = 760) 42.4 seconds 26.8-37.1 H Fundraising Manager ID -LACTIC ACID, ZKKODS3139-71-03 17:44:00* Test Item Value Reference Range Interpretation Comme nts LACTATE BLOOD VENOUS (2) (BEAKER) (test code = 2872) 1.58 mmol/L 0.50-2.20 Specimen slightl y hemolyzed Specimen slightly ictericCBC W/PLT COUNT & AUTO [id number] 17:31:12 * Test Item Value Reference Range Interpretation Comme nts WHITE BLOOD CELL COUNT (BEAK ER) (test code = 775) 4.3 K/ L 3.5-10.5 RED BLOOD CELL COUNT (BEAKER ) (test code = 761) 3.55 M/ L 3.93-5.22 L HEMOGLOBIN (BEAKER) (test co de = 410) 12.1 GM/DL 11.2-15.7 HEMATOCRIT (BEAKER) (test co de = 411) 35.9 % 34.1-44.9 MEAN CORPUSCULAR VOLUME (LUCAS KER) [...] 0.50 % 0.00-1.00 URINALYSIS W/ REFLEX URINE [id number] 17:12:51* Test Item Value Reference Range Interpretation [...] 1 /HPF SOURCE(BEAKER) (test code = 2795) Fundraising Manager ID - [auto]Fundraising Manager ID - techHEPATIC FUNCTION KLANS4431-56-58 05:44:07 * Test Item Value Reference Range [...] 11 U/L <34 Specimen moderately ictericBASIC METABOLIC [id number] 05:32:26* Test Item Value Reference Range Interpretation [...] not applicable for dialysis patients Specimen moderately kynjlddIRXHXNNPT6347-10-86 05:32:21* Test Item Value Reference Range Interpretation Comme nts MAGNESIUM (BEAKER) (test cod e = 627) 1.9 mg/dL 1.6-2.6 [id number] 05:06:26* Test Item Value Reference Range Interpretation Comme nts PHOSPHORUS (BEAKER) (test co de = 604) 3.9 mg/dL 2.5-4.5 PROTHROMBIN TIME/[id number] 04:21:13* Test Item Value Reference Range Interpretation Comme nts PROTIME (BEAKER) (test code = 759) 18.7 seconds 9.9-12.7 H INR (BEAKER) (test code = 370) 1.67 See Comment RECOMMENDED COUMADIN/WARFARIN INR THERAPY RANGESSTANDARD DOSE: 2.0 - 3.0 Includes: PROPHYLAXIS for venous thrombosis, systemic embolization; TREATMENT for venous thrombosis and/or pulmonary embolus.HIGH RISK: Target INR is 2.5-3.5 for patients with mechanical heart valves.Fundraising Manager ID -CBC W/PLT COUNT & AUTO EHTPTBJSGPIU3733-18-23 04:05:03* Test Item Value Reference Range Interpretation [...] 2801) 0.20 % 0.00-1.00 HIGH SENSITIVITY TROPONIN [id number] 02:36:16* Test Item Value Reference Range Interpretation Comme nts HIGH SENSITIVITY TROPONIN I (test code = 6648277) < pg/ml <14 The Alinity ci High Sensitivity Troponin-I results should be used in conjunction with other diagnostic information such as ECG, clinical observations and information, and patient symptoms to aid in the diagnosis of MN.CT brain without IV qvkkhrta3925-41-31 02:19:10EXAM: CT BRAIN WITHOUT IV CONTRAST CLINICAL [...] Structures: No acute osseous abnormality. Included Orbits: NormalCH[facility]'S Hospital Of San DiegoCT brain without IV [id number] 02:19:10EXAM: CT BRAIN WITHOUT IV CONTRAST CLINICAL [...] Structures: No acute osseous abnormality. Included Orbits: NormalNorthridge [facility] Medical CenterCT BRAIN WITHOUT IV [id number] 02:19:10 [facility] : 1970 Sex: FEXAM: CT [...] By: Magdaleno Putnam MD04/11/2025 02:21 CDTWorkstation Name: [id number], TOTAL AND [id number] 00:55:52* Test Item Value Reference Range Interpretation Comme nts BILIRUBIN TOTAL (BEAKER) (te st code = 377) 5.1 mg/dL 0.3-1.2 H BILIRUBIN DIRECT (BEAKER) (t est code = 706) 1.7 mg/dL 0.1-0.5 H US ABDOMEN [id number] 00:05:11 [facility] : 1970 Sex: FTECHNIQUE: [...] By: Magdaleno Putnam MD04/11/2025 00:07 CDTWorkstation Name: [id number] COMPREHENSIVE METABOLIC [id number] 19:26:30* Test Item Value Reference Range Interpretation [...] applicable for dialysis patients Specimen moderately ictericPROTHROMBIN TIME/[id number] 19:23:58* Test Item Value Reference Range Interpretation Comme nts PROTIME (BEAKER) (test code = 759) 19.7 seconds 9.9-12.7 H INR (BEAKER) (test code = 370) 1.76 See Comment RECOMMENDED COUMADIN/WARFARIN INR THERAPY RANGESSTANDARD DOSE: 2.0 - 3.0 Includes: PROPHYLAXIS for venous thrombosis, systemic embolization; TREATMENT for venous thrombosis and/or pulmonary embolus.HIGH RISK: Target INR is 2.5-3.5 for patients with mechanical heart valves.Fundraising Manager ID -[id number] 19:23:58* Test Item Value Reference Range Interpretation Comme nts PARTIAL THROMBOPLASTIN TIME (BEAKER) (test code = 760) 45.3 seconds 26.8-37.1 H Fundraising Manager ID -[id number] 19:20:40* Test Item Value Reference Range Interpretation Comme nts LIPASE (BEAKER) (test code = 749) 17 U/L <=60 Specimen moderately ictericURINALYSIS W/ REFLEX URINE [id number] 19:20:30 * Test Item Value Reference Range [...] 514) 6 /LPF SOURCE(BEAKER) (test code = 9985) Fundraising Manager ID - [auto]Fundraising Manager ID - techCBC W/PLT COUNT & [...] 0.00-1.00 XR CHEST 1 VIEW PORTABLE / [id number] 12:42:31 [facility] : 1970 Sex: FINDICATION: FEVERCOMPARISON: 01/23/2025 x-rayTECHNIQUE: Single frontal view of the est.FINDINGS: Lines, tubes, and devices: None.Lungs and pleura: Clear lungs. No pneumothorax.Heart and mediastinum: Normal heart size. Unremarkable mediastinalcontours.Osseous structures: No acute abnormality. Mild spondylosis and facetarthropathy are present within the spine.Other: None.IMPRESSION:No acute intrathoracic abnormality.Electronically Signed By: Viral Corbin04/05/2025 12:44 CDTWorkstation Name: [id number] 14:01:00* Test Item Value Reference Range Interpretation Comme nts CULTURE (BEAKER) (test code = 1095) No growth in 5 days The specimen volume collected for this blood culture was below the optimum (10 mL per bottle or 20 mL total). Use of lower volumes may adversely affect recovery and/or detection times of some organisms.BLOOD [id number] 13:00:59* Test Item Value Reference Range Interpretation [...] 413) 0 /100 WBC 0-0 BASIC METABOLIC [id number] 05:58:04* Test Item Value Reference Range Interpretation [...] is not applicable for dialysis patients BLOOD [id number] 20:00:34* Test Item Value Reference Range Interpretation Comme nts CULTURE (BEAKER) (test code = 1095) No growth in 5 days BLOOD [id number] 20:00:34* Test Item Value Reference Range Interpretation [...] Comme nts Human Metapneumovirus (test code = 06409-6) Detected Not detected, Equivocal A Contact isolation. Consider stopping antibiotics. Rhinovirus (test code = 62155-0) Not detected Not detected, Equivocal INFLUENZA A (NO SUBTYPE) (test code = 93743-9) Not detected Not detected, Equivocal Influenza A subtype H1 (test code = 75487-5) Influenza A Subtype H3 (test code = 05252-8) Influenza A Subtype H1-2009 (test code = 99905-1) Influenza B (test code = 81087-0) Not detected Not detected, Equivocal Respiratory Syncytial Virus (test code = 70681-0) Not detected Not detected, Equivocal Parainfluenza Virus 1 (test code = 89552-3) Not detected Not detected, Equivocal Parainfluenza Virus 2 (test code = 10950-9) Not detected Not detected, Equivocal Parainfluenza virus 3 (test code = 48805-1) Not detected Not detected, Equivocal Parainfluenza Virus 4 (test code = 10635-1) Not detected Not detected, Equivocal Adenovirus (test code = 83138-4) Not detected Not detected, Equivocal Coronavirus 229E (test code = 99044-0) Not detected Not detected, Equivocal Coronavirus HKU1 (test code = 76987-9) Not detected Not detected, Equivocal Coronavirus NL63 (test code = 86021-8) Not detected Not detected, Equivocal Coronavirus OC43 (test code = 93887-1) Not detected Not detected, Equivocal Bordetella Pertussis (test code = 27202-9) Not detected Not detected, Equivocal Chlamydophila Pneumoniae (test code = 65241-9) Not detected Not detected, Equivocal Mycoplasma Pneumoniae (test code = 47114-2) Not detected Not detected, Equivocal Severe Acute Acnrlaekkkt-RtM-7 (test code = 23895-6) Not detected Not detected, Equivocal Bordtella Parapertussis (test code = 71030-5) Not detected Not detected, Equivocal BLANCA (test [...] decisions. This sample was tested at the [facility] using the curated.by Respiratory Panel. It is FDA cleared and has been verified and approved by the [facility] for clinical use on nasopharyngeal swab specimens. The performance of the What's TrendingArray RP has not been established in individuals who received influenza vaccine. Recent administration of a nasal influenza vaccine may cause false positive results for Influenza A and/orInfluenza B. Lab Interpretation (test code = 21103-9) Abnormal [facility] DiegoRespiratory Panel [facility] (Restricted to Infectious Diseases and severely immunosuppressed patients)2025-03-30 09:07:04* Test Item Value Reference Range Interpretation Comme nts Human Metapneumovirus (test code = 47928-4) Detected Not detected, Equivocal A Contact isolation. Consider stopping antibiotics. Rhinovirus (test code = 64131-6) Not detected Not detected, Equivocal INFLUENZA A (NO SUBTYPE) (test code = 81879-3) Not detected Not detected, Equivocal Influenza A subtype H1 (test code = 73114-1) Influenza A Subtype H3 (test code = 71449-5) Influenza A Subtype H1-2009 (test code = 77539-3) Influenza B (test code = 78592-2) Not detected Not detected, Equivocal Respiratory Syncytial Virus (test code = 57119-0) Not detected Not detected, Equivocal Parainfluenza Virus 1 (test code = 18400-9) Not detected Not detected, Equivocal Parainfluenza Virus 2 (test code = 01219-2) Not detected Not detected, Equivocal Parainfluenza virus 3 (test code = 53555-8) Not detected Not detected, Equivocal Parainfluenza Virus 4 (test code = 29917-6) Not detected Not detected, Equivocal Adenovirus (test code = 94508-6) Not detected Not detected, Equivocal Coronavirus 229E (test code = 75703-1) Not detected Not detected, Equivocal Coronavirus HKU1 (test code = 32341-9) Not detected Not detected, Equivocal Coronavirus NL63 (test code = 35120-8) Not detected Not detected, Equivocal Coronavirus OC43 (test code = 96305-1) Not detected Not detected, Equivocal Bordetella Pertussis (test code = 22944-7) Not detected Not detected, Equivocal Chlamydophila Pneumoniae (test code = 59650-0) Not detected Not detected, Equivocal Mycoplasma Pneumoniae (test code = 82795-5) Not detected Not detected, Equivocal Severe Acute Irqjxewyezt-FeL-4 (test code = 09257-8) Not detected Not detected, Equivocal Bordtella Parapertussis (test code = 85314-1) Not detected Not detected, Equivocal BLANCA (test [...] decisions. This sample was tested at the [facility] using the [employer]ideArray Respiratory Panel. It is FDA cleared and has been verified and approved by the [facility] for clinical use on nasopharyngeal swab specimens. The performance of the FilmArray RP has not been established in individuals who received influenza vaccine. Recent administration of a nasal influenza vaccine may cause false positive results for Influenza A and/orInfluenza B. Lab Interpretation (test code = 58387-7) Abnormal [facility] DiegoRESPIRAT[facility] [id number] 09:07:04* Test Item Value Reference Range Interpretation [...] detected Not detected, Equivocal SEVERE ACUTE RESPIRATORY HRMMUKIF-NVLUCEKILKN-4 (test code = 2283765) Not detected Not detected, Equivocal BORDETELLA PARAPERTUSSIS (BKR) (test code = 6920201) Not detected Not detected, Equivocal Other viruses and bacteria not targeted by this PCR panel cannot be excluded; therefore clinical correlation and follow up of serology, culture results, and other molecular studies is required. The results are not intended to be used as the sole means for clinical diagnosis or patient management decisions. This sample was tested at the [facility] using the [employer] FilmArray Respiratory Panel. It is FDA cleared and has been verified and approved by the [facility] for clinical use on nasopharyngeal swab specimens.The performance of the FilmArray RP has not been established in individuals who received influenza vaccine. Recent administration of a nasal influenza vaccine may cause false positive results for Influenza A and/orInfluenza B.BASIC METABOLIC [id number] 06:08:11* Test Item Value Reference Range Interpretation [...] 32.9 % 34.1-44.9 L MEAN CORPUSCULAR VOLUME (LCUAS KER) (test code = 753) 103 fL [...] 413) 0 /100 WBC 0-0 LACTIC ACID, [id number] 18:20:19* Test Item Value Reference Range Interpretation Comme nts LACTATE BLOOD VENOUS (2) (BEAKER) (test code = 2872) 3.18 mmol/L 0.50-2.20 H Specimen slightl y hemolyzed Specimen slightly ictericPROTHROMBIN TIME/[id number] 13:23:26* Test Item Value Reference Range Interpretation Comme nts PROTIME (BEAKER) (test code = 759) 19.4 seconds 9.9-12.7 H INR (BEAKER) (test code = 370) 1.74 See Comment RECOMMENDED COUMADIN/WARFARIN INR THERAPY RANGESSTANDARD DOSE: 2.0 - 3.0 Includes: PROPHYLAXIS for venous thrombosis, systemic embolization; TREATMENT for venous thrombosis and/or pulmonary embolus.HIGH RISK: Target INR is 2.5-3.5 for patients with mechanical heart valves.Fundraising Manager ID -HEPATIC FUNCTION PANEL 2025-03-29 13:01:46* [...] 347) 7 U/L <34 Specimen moderately ictericC-REACTIVE [id number] 12:59:01* Test Item Value Reference Range Interpretation Comme nts C-REACTIVE PROTEIN (BEAKER) (test code = 676) 0.71 mg/dL <=0.50 H MR abdomen without IV contrast [id number] 10:32:15TECHNIQUE: MRI of the abdomen and MRCP [...] or wall thickening. BONES AND SOFT TISSUES: Unremarkable.[facility] CenterMR abdomen without IV contrast [id number] 10:32:15TECHNIQUE: MRI of the abdomen and MRCP WITHOUT intravenous contrast. 3-Dvolume reconstructions wereobtained to evaluate the biliary ductalsystem. INDICATION: Hyperbilirubinemia [...] in the common bile duct.SPLEEN: Splenomegaly, 16.9 cm..PANCRE : No focal masses or ductal dilatation. ADRENALS: No adrenal nodules.KIDNEYS/URETERS: No hydronephrosis or solid mass lesions. PERITONEUM/RETROPERITONEUM: No free fluid.LYMPH NODES: No lymphadenopat hy.VESSELS: Unremarkable. GI TRACT: No distention or wall thickening. BONES AND SOFT TISSUES: Unremarkable.[facility] CenterMR ABDOMEN WITHOUT IV CONTRAST [id number] 10:32:[address] [facility] : 1970 Sex: FTECHNIQUE: [...] or ductal dilatation.ADRENALS: No adrenal nodules.KIDNEYS/URETERS: No hydronephrosis or solid mass lesions.PERITONEUM/RETROPERITONEUM: No free fluid.LYMPH NODES: No lymp hadenopathy.VESSELS: Unremarkable.GI TRACT: No distention or wall thickening.BONES AND SOFT TISSUES: Unremarkable.IMPRESSION:Prior cholecystectomy. Minimal prominence of the common bile duct, nofilling defect or obstruction.Cirrhosis of the liver.No evidence of pancreatitis.Trace ascites and splenomegaly consistent with portal hypertension.Electronically Signed By: Mabel Rahman03/29/2025 10:34 CDTWorkstation Name: [id number] (HEMOGRAM ONLY) 2025-03-29 06:44:24* Test Item Value [...] 413) 0 /100 WBC 0-0 BASIC METABOLIC [id number] 06:13:46* Test Item Value Reference Range Interpretation [...] for dialysis patients Specimen moderately ictericBASIC METABOLIC [id number] 07:46:39* Test Item Value Reference Range Interpretation [...] 413) 0 /100 WBC 0-0 HEPATIC FUNCTION [id number] 09:17:31* Test Item Value Reference Range Interpretation [...] 8 U/L <34 Specimen moderately ictericBASIC METABOLIC [id number] 07:32:21* Test Item Value Reference Range Interpretation [...] /100 WBC 0-0 CT ABDOMEN/PELVIS WITHOUT IV [id number] 22:01:50 [facility] : 1970 Sex: FTECHNIQUE: [...] T bili and its increased, 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 Fat stranding in the mesenteric root could be alsoindicative of evolvingacute pancreatitis. Correlate with lipase.Prominent caudate lobe and brock hepatis. Splenomegaly asdetailedabove. Findings concerning for cirrhotic morphology of the liver withfeatures of portal hype rtension. Needs clinical correlation.Small mesenteric nodes predominantly at the root of mesentery.Findingslikely reactive. Follow-up to resolution is recommended.Electronically Signed By: Ivonne Wang05/ 22:03 CDTWorkstation Name: [id number] 11:53:03* Test Item Value Reference Range Interpretation Comme nts HEMOGLOBIN A1C ELECTROPHORESIS (BEAKER) (test code = 3811) 4.8 % See_Comment [Automated me ssage] The system which generated this result transmitted reference range: <=5.6%. The reference range was not used to interpret this result as normal/abnormal. "The A1c is measured using a [facility]-certified method. HbA1c value equal to or greater than 6.5% as the diagnosis cutoff for diabetes. An HbA1c value of 5.7- 6.4% indicates increased risk for diabetes (prediabetes)."Fundraising Manager ID - ADM HEPATIC FUNCTION [id number] 10:41:08* Test Item Value Reference Range Interpretation [...] = 347) 7 U/L <34 Specimen moderately [id number] 10:29:59* Test Item Value Reference Range Interpretation Comme nts MAGNESIUM (BEAKER) (test cod e = 627) 2.1 mg/dL 1.6-2.6 BASIC METABOLIC [id number] 10:29:59* Test Item Value Reference Range Interpretation [...] Specimen moderately ictericCBC W/PLT COUNT & AUTO [id number] 06:38:12* Test Item Value Reference Range Interpretation [...] code = 2801) 0.30 % 0.00-1.00 PROTHROMBIN TIME/[id number] 06:28:11* Test Item Value Reference Range Interpretation Comme nts PROTIME (BEAKER) (test code = 759) 16.5 seconds 9.9-12.7 H INR (BEAKER) (test code = 370) 1.47 See Comment RECOMMENDED COUMADIN/WARFARIN INR THERAPY RANGESSTANDARD DOSE: 2.0 - 3.0 Includes: PROPHYLAXIS for venous thrombosis, systemic embolization; TREATMENT for venous thrombosis and/or pulmonary embolus.HIGH RISK: Target INR is 2.5-3.5 for patients with mechanical heart valves.Fundraising Manager ID -LACTIC ACID, VENOUS 2025-03-25 20:12:46* Test Item Value Reference Range Interpretation Comme nts LACTATE BLOOD VENOUS (2) (BEAKER) (test code = 2872) 1.40 mmol/L 0.50-2.20 Specimen slightl y hemolyzed Specimen moderately ictericUS abdomen [id number] 18:55:07EXAMINATION: ULTRASOUND OF THE ABDOMEN AND PELVIS, COMPLETE. TECHNIQUE: Grayscale ultrasound of theabdomen, including color Dopplerevaluation of the main portal vein, abdominal aorta and inferior venacava with customer success representative images was obtained. INDICATION: ABDOMINAL PAINBACK [...] in appearance. The peritoneal cavity: No free fluid.[facility] CenterUS [id number] 18:55:07EXAMINATION: ULTRASOUND OF THE ABDOMEN AND PELVIS, COMPLETE. TECHNIQUE: Grayscale ultrasound of theabdomen, including color Dopplerevaluation of the main portal vein, abdominal aorta and inferior venacava with customer success representative images was obtained. INDICATION: ABDOMINAL PAINBACK [...] in appearance. The peritoneal cavity: No free fluid.[facility] CenterUS abdomen [id number] 18:55:07 EXAMINATION: ULTRASOUND OF THE ABDOMEN AND PELVIS, COMPLETE. TECHNIQUE: Grayscale ultrasound of theabdomen, including color Dopplerevaluation of the main portal vein, abdominal aorta and inferior venacava with customer success representative images was obtained. INDICATION: ABDOMINAL PAINBACK [...] in appearance. The peritoneal cavity: No free fluid.[facility] CenterUS [id number] 18:55:07EXAMINATION: ULTRASOUND OF THE ABDOMEN AND PELVIS, COMPLETE. TECHNIQUE: Grayscale ultrasound of theabdomen, including color Dopplerevaluation of the main portal vein, abdominal aorta and inferior venacava with customer success representative images was obtained. INDICATION: ABDOMINAL PAINBACK [...] in appearance. The peritoneal cavity: No free fluid.[facility] CenterUS [id number] 18:55:[address] [facility] : 1970 Sex: FEXAMINATION: ULTRASOUND OF THE ABDOMEN AND PELVIS, COMPLETE.TECHNIQUE: Grayscale ultrasound of the abdomen, including color Dopplerevaluation of the main portal vein, abdominal aorta and inferior venacava with customer success representative images was obtained.INDICATION: ABDOMINAL PAINBACK PAIN.COMPARISON: [...] Signed By: Richy Boston03/25/2025 18:57 CDTWorkstation Name: [id number] ABDOMEN [id number] 18:55:07 [facility] : 1970 Sex: FEXAMINATION: ULTRASOUND OF THE ABDOMEN AND PELVIS, COMPLETE.TECHNIQUE: Grayscale ultrasound of the abdomen, including color Dopplerevaluation of the main portal vein, abdominal aorta and inferior venacava with customer success representative images was obtained.INDICATION: ABDOMINAL PAINBACK PAIN.COMPARISON: [...] Signed By: Richy Boston03/25/2025 18:57 CDTWorkstation Name: [id number] FUNCTION [id number] 16:07:06 * Test Item Value Reference Range [...] 347) 9 U/L <34 Specimen moderately ictericPROTHROMBIN TIME/[id number] 16:06:55* Test Item Value Reference Range Interpretation Comme nts PROTIME (BEAKER) (test code = 759) 16.0 seconds 9.9-12.7 H INR (BEAKER) (test code = 370) 1.43 See Comment RECOMMENDED COUMADIN/WARFARIN INR THERAPY RANGESSTANDARD DOSE: 2.0 - 3.0 Includes: PROPHYLAXIS for venous thrombosis, systemic embolization; TREATMENT for venous thrombosis and/or pulmonary embolus.HIGH RISK: Target INR is 2.5-3.5 for patients with mechanical heart valves.Fundraising Manager ID -[id number] 16:05:35 * Test Item Value Reference Range Interpretation Comme nts LIPASE (BEAKER) (test code = 749) 22 U/L <=60 Specimen moderately ictericBASIC METABOLIC [id number] 16:05:34* Test Item Value Reference Range Interpretation [...] patients Specimen moderately ictericURINALYSIS W/ REFLEX URINE [id number] 15:55:32 * Test Item Value Reference Range [...] 514) 23 /LPF SOURCE(BEAKER) (test code = 0745) Fundraising Manager ID - [auto]Fundraising Manager ID - techCBC W/PLT COUNT & [...] % 0.00-1.00 DRUG MONITOR, PANEL 1, W/CONF, [id number] 13:49:51* Test Item Value Reference Range Interpretation Comme nts Amphetamines (test code = 38056-3) NEGATIVE <=500 Barbiturates (test code = 78001-9) NEGATIVE <=300 Benzodiazepines (test code = 02607-7) NEGATIVE <=100 Cocaine Metabolite (test code = 3393-6) NEGATIVE <=150 MARIJUANA METABOLITE (QUEST) (test code = 3426-4) NEGATIVE <=20 METHADONE METABOLITE (test code = 3773-9) NEGATIVE <=100 Opiates (test code = 80417-1) NEGATIVE <=100 Oxycodone (test code = 80432-4) NEGATIVE <=100 Phencyclidine (test code = 3936-2) NEGATIVE <=25 Creatinine (test code = 2160-0) 136.6 mg/dL See_Comment [Automated messa ge] The system which generated this result transmitted reference range: > or = 20.0. The reference range was not used to interpret this result as normal/abnormal. pH (test code = 2756-5) 6.4 4.5-9.0 Oxidant (test code = 42147-9) NEGATIVE See_Comment [Automated messa ge] The system which generated this result transmitted reference range: <200 mcg/mL. The reference range was not used to interpret this result as normal/abnormal. BLANCA (test code = BLANCA) [id number] [facility] CenterNICOTINE METABOLITE [id number] 13:49:51* Test Item Value Reference Range Interpretation Comme nts NICOTINE SCREEN (test code = 623022520173) NONE DETECTED BLANCA (test code = BLANCA) [id number] [facility] CenterDRUG MONITOR, PANEL 1, W/CONF, [id number] 13:49:51* Test Item Value Reference Range Interpretation Comme nts Amphetamines (test code = 05044-8) NEGATIVE <=500 Barbiturates (test code = 34082-8) NEGATIVE <=300 Benzodiazepines (test code = 87199-3) NEGATIVE <=100 Cocaine Metabolite (test code = 3393-6) NEGATIVE <=150 MARIJUANA METABOLITE (QUEST) (test code = 3426-4) NEGATIVE <=20 METHADONE METABOLITE (test code = 3773-9) NEGATIVE <=100 Opiates (test code = 49300-9) NEGATIVE <=100 Oxycodone (test code = 59973-1) NEGATIVE <=100 Phencyclidine (test code = 3936-2) NEGATIVE <=25 Creatinine (test code = 2160-0) 136.6 mg/dL See_Comment [Automated messa ge] The system which generated this result transmitted reference range: > or = 20.0. The reference range was not used to interpret this result as normal/abnormal. pH (test code = 2756-5) 6.4 4.5-9.0 Oxidant (test code = 53098-3) NEGATIVE See_Comment [Automated messa ge] The system which generated this result transmitted reference range: <200 mcg/mL. The reference range was not used to interpret this result as normal/abnormal. BLANCA (test code = BLANCA) [id number] [facility] CenterNICOTINE METABOLITE [id number] 13:49:51* Test Item Value Reference Range Interpretation Comme nts NICOTINE SCREEN (test code = 679494370062) NONE DETECTED BLANCA (test code = BLANCA) [id number] [facility] CenterDRUG MONITORING [id number] 13:49:51NOTES AND COMMENTSQuest DiagnosticsSouth Texas Health System McAllenDRUG MONITORING [id number] 13:49:51NOTES AND COMMENTSQuest Diagnostics-[facility] HospitalDRUG MONITORING [id number] 13:49:51NOTES AND COMMENTSQuest DiagnosticsSouth Texas Health System McAllenAmylase2025-05-14 22:52:07* Test Item Value Reference Range Interpretation Comme nts Amylase, Serum (test code = 1485201) 48 U/L 21-101 BLANCA (test code = BLANCA) [id number] [facility] CenterAmylase2025-05-14 22:52:07* Test Item Value Reference Range Interpretation Comme nts Amylase, Serum (test code = 0975221) 48 U/L 21-101 BLANCA (test code = BLANCA) [id number] [facility] CenterPROTHROMBIN TIME/[id number] 14:06:10* Test Item Value Reference Range Interpretation Comme nts PROTIME (BEAKER) (test code = 759) 15.6 seconds 9.9-12.7 H INR (BEAKER) (test code = 370) 1.39 See Comment RECOMMENDED COUMADIN/WARFARIN INR THERAPY RANGESSTANDARD DOSE: 2.0 - 3.0 Includes: PROPHYLAXIS for venous thrombosis, systemic embolization; TREATMENT for venous thrombosis and/or pulmonary embolus.HIGH RISK: Target INR is 2.5-3.5 for patients with mechanical heart valves.Fundraising Manager ID -COMPREHENSIVE METABOLIC [id number] 14:01:09* Test Item Value Reference Range Interpretation [...] applicable for dialysis patients Specimen slightly ictericBILIRUBIN, [id number] 14:00:33* Test Item Value Reference Range Interpretation Comme nts BILIRUBIN DIRECT (BEAKER) (t est code = 706) 1.5 mg/dL 0.1-0.5 H [id number] 14:00:33* Test Item Value Reference Range Interpretation Comme nts LIPASE (BEAKER) (test code = 749) 54 U/L <=60 Specimen slightly ictericCBC W/PLT COUNT & AUTO [id number] 13:45:27 * Test Item Value Reference Range [...] = 2801) 0.20 % 0.00-1.00 COMPREHENSIVE METABOLIC [id number] 08:32:34* Test Item Value Reference Range Interpretation [...] Specimen slightly ictericCBC W/PLT COUNT & AUTO DHCORJVBGWCG3691-41-22 08:20:34 * Test Item Value Reference Range [...] 0.00-1.00 CT ABDOMEN/PELVIS WITH IV CONTRAST Standard Iqajmnwv1197-84-08 00:13:23 TECHNIQUE: CT of the abdomen and [...] TISSUES: No acute osseous abnormality. Soft tissues areunremarkable.[facility] CenterCT [facility]EN/PELVIS WITH IV [id number] 00:13:[address] : 1970 Sex: FTECHNIQUE: [...] Signed By: Jonna Marroquin03/06/2025 00:15 CDTWorkstation Name: [id number] w/Microscopic + Reflex to Wdcmarv8692-66-27 22:33:09* Test Item Value Reference Range Interpretation Comme nts Color, UA (test code = 5778-6) Light Yellow Clarity, UA (test code = 5767-9) Clear Specific [place], UA (test code = 5811-5) 1.007 1.001-1.035 pH, UA (test code = 5803-2) 7 5.0-8.0 Protein, UA (test code = 26867-9) Negative Negative Glucose, UA (test code = 365) Negative Negative Ketones, UA (test code = 2514-8) Negative Negative Bilirubin, UA (test code = 53279-8) Negative Negative Blood, UA (test code = 19110-7) Negative Negative Nitrite, UA (test code = 5802-4) Negative Negative Leukocytes, UA (test code = 5799-2) Negative Negative Urobilinogen, UA (test code = 86948-8) 0.2 0.2-1.0 RBC, UA (test code = 25191-1) See_Comment [Automated Meet My Friendsa Premise] The system which generated this result transmitted reference range: /HPF. The reference range was not used to interpret this result as normal/abnormal. WBC, UA (test code = 5821-4) 2 See_Comment [Automated [employer] Premise] The system which generated this result transmitted reference range: /HPF. The reference range was not used to interpret this result as normal/abnormal. Squam Epithel, UA (test code = 65545-0) 3 See_Comment [Automated Meet [employer] Premise] The system which generated this result transmitted reference range: /HPF. The reference range was not used to interpret this result as normal/abnormal. Specimen Source (test code = 2795) BLANCA (test code = BLANCA) Fundraising Manager ID - [auto]Fundraising Manager ID - tech [facility] CenterURINALYSIS W/ REFLEX URINE AASUEDA8568-63-82 22:33:09 * Test Item Value Reference Range [...] 3 /HPF SOURCE(BEAKER) (test code = 2795) Fundraising Manager ID - [auto]Fundraising Manager ID - techHEPATIC FUNCTION TWKES8487-53-71 20:33:55 * Test Item Value Reference Range [...] sligh tly hemolyzed Specimen slightly ictericBASIC METABOLIC LSFCT7007-40-79 20:30:15* Test Item Value Reference Range Interpretation [...] not applicable for dialysis patients Specimen slightly xxgkotaKZHQZZ3589-18-67 20:30:15* Test Item Value Reference Range Interpretation Comme nts LIPASE (BEAKER) (test code = 749) 41 U/L <=60 Specimen slightly ictericCBC W/PLT COUNT & AUTO CXUQAXAUJIZV2908-11-15 19:58:25 * Test Item Value Reference Range [...] code = 2801) 0.30 % 0.00-1.00 Tissue Lpst9324-06-26 10:46:15* Test Item Value Reference Range Interpretation Comme nts Case Report (test code = 104) Surgical Pathology Report Case: [id number] Authorizing Provider: Bairon Hansen MD Collected: 02/28/2025 12:23 PM Ordering Location: [facility] Received: 02/28/2025 07:15 PM SERVICES Pathologist: Fabienne Whitt MD Specimen: Stomach, Antrum, bx r/o H-Pylori DIAGNOSIS (test code = 3220) k9wxpTGnRPTtp1peRQQveN FuZzEwMzNcZnRuYmpcdWMx XNxiavCkOApsgYinBSL9KL CmJF8mlDfhrWi8vDisCWUg ivC7gFBcLVanj1shLWA3q9 pnfyeaJUZfZFbtXc6bqAUi xGcdKrDdLNXwLOg0pN35LW NcnX9itVVqYBc5NBDzuQCj gjTyWrSrCEQhrOUlaIT2AX DrHC2fwztnSDbaVJleOBIl tuW6FZQeuETvI8XcDLRmHE 2dyvgaYCR3KIpuCILdIFJ0 HiTgWVToh3Rtlyf1XdPktQ FyZFxwbGFpblxmczIwIFNU P21CV3qmYQTQY2BOCQdgxX JjXCNqrmYxH9VlbBHaDjVm bzXxCLecDW74M79aYIP2iY BlVA6upRShR3bvx55gRoBi XPT8ism0jCKoIPjiOBC9zJ GpIHMkwrBlIr4lOA9csBju l1AwER8uH4WeyLFfiiZyOK ZsyFnmeYUiFKU4NZOppQQh tjHzu7OmyR9juUUpwBmcpv AgQOjyi0JjQDwdUFKySA2p rKstBWSdRA5xTIRdS4lpuG 6qzgj3AqWiGFPsEmP2DEOh rxN8Bsk4IKQoYCjnc0kin3 JrVBGyYGu1oBznNxIvTIIw t1ltqaGxPjCfFYSbMMXrFW NgvTFtK580w3qhh1kalkDl eHK9ZPEyLHL3NBwsvzVphw S6KZkhgENwDsP5VPfgfgEv FLkogpNpsqEkGkw4EORrR0 95SIL3oPnbz6yiPIK6GXMq IBYhXmOcFl7clAAhS605DS ZgPOFWAAPsrSs6JYZghoTq taYirATXl069U996k4vpOA KhlgPsaScTzlpev3usF721 XHBhcGVydzEyMjQwXHBhcG GraFZ3QXFaNH8gooteLByw CCvuBANvkvI0QXQhlIVkC4 LlVNWdFX1ogkgzRVB5MHjl IFTtWGS9LxCnPBGzu6Pusc y9JvNrna1imj34JYL8p7Nj dLuqWDJ0GYT2PdGnRp8upD DpRWWlOP5tYiNsvZZwRYZj fk19lRduZQzsJXX4VUFyxw Yvf4Zqq9grYuHbfoKyV8yi R2MgTFQiTSRlCDEqRoOoxf Mos6Sfx2HnfTGqeVt3d8js JTBdSKXxaKpzu2ctMOP3BF FhtZChR6vyhR6tCXPdMV1m gnfxf3wqBGdoKJumAQIhmF E1ziM7YYPnmYQpB3HzcF7w JPFcVAjyUMPrypd6WkKaUq 9vdGVyeTcyMFxzYmtwYWdl XHBnbmNvbnRccGduZGVjXH BsYWluXHBsYWluXGYwXGZz MjRccWxcbGFuZzEwMzNcaG ljaFxmMVxkYmNoXGYxXGxv S2mgVwSkHdCtXpx2UAHqjR WqLVFfOql6KNPwfCUoPKJI zEihvP5iSYCepQnchF5mdK J9CZCenjGetLFGzJ8bNXLL wN0jCwB2ASCbHqw2QZU3Dp FccGFyfX0= CPT Code(s) (test code = 3357) v7ztkMQmNVIjiLCbLZjpPo joqjEbQHUxiFSbP1Pagegw TBxlNE2bZB8ybEbzeZLioX LeJYDpNgUcw5nwu683rVNh u2lsTHIAfuhkhRu5tZhhO0 6ar3B4IsafJ57xvUIpWHU8 EXDtMWBcyPEtYWZsFOS4NS IvjSXyG1tzONUeRL9cnjur MOwjLIdfEMDplYF2LBOwpQ FcZ9PcKNFtIPawZEOhtko9 WoCnHt7giQChsJtsODwzJB JkXHBsYWluXGZzMjAgODgz MDVccGFyfQ== CLINICAL HISTORY (test code = 3356) a9xixBTuTNMyvCMaOMkxLf ljbiChTTLxlECpV7Ukxvrx MKasEC2yMU7wnDolxEUltM QlASTqTwYzb0btw057nCNz u2kbQTRDeurhsNg1mTcbJ1 2nl5H3VdglI60jwVJsXLH1 GDCgTZTsqGHfGCNnCNC3LZ PnjELgZ9aoNIObQV8mppgd HEtiEAvbIZJdhMJ2QIOotC UaL4GdEZSvKQmqSHMpvzh4 QaBpAv3ekRIisQqhAYufXH JkXHBsYWluXGZzMjAgRXNv qEjrW3GnaGP8LASfX4UfXE dpdGhvdXQgYmxlZWRpbmcg KEhDQylcbGluZSBFbmNvdW 57CIDdWy6yOOUxjoMttlmi EcXga2AxbXKgfAloBS08IH 4ff0TpFEDtDP3oANOkfH7e IFxwYXJ9 GROSS DESCRIPTION (test code = 5924645930) n1lcyFOxEHLpkVMKUPK7WF JzXA8qcNswrJn9sMupSBZk adL2dSCkDTndp5yfBQK4q8 nlhgZCEvrxSLMzRT3bJSuo JFYwFQ2tFfRkPFFlUoMsCT BhcGVydzEyMjQwXHBhcGVy pVM2XOSySG0hjockHGpmRK euVSAbpbZ2NLOxyGJrJ9Oo NKRmYZ6zwqvcWPV7WAJPYi xpKe0inNXrbYVNYfwoNvWl SdXvHXEhWBHsUYPsu0jrkt HTjheyhNx4GDa6BOSqGCVw qULuv3N8RZpqd2hvv5XzZL EiM2DfztGBJJDyJpr3lV9V k5glu4levkSayQznsqQzEB bvstBoroRuSoo7BFH9pP9O JWLvW5TfYB6Qb9qaRHQubY QyXNG5HClic9woIBzbXVI0 WRHwDZMsUVInBF3XNmOwES XoVBtbFzxpFdA0PYa6CQPU ZSWhNaH3WlH4KQV3IBr9NC HnCM1nTMdcdEBlSGpbVfno CXqbY970UNzeNTYvN7IsK7 QgXFxzZyBcXGlkIDUxMDAy CZegZUViP5DVXWZyGtZfCA F1FPDgDFu1YAj4WI9HVtPr UPX7QzexGKo4ZJOtWEu1AI lnKF4DBPYmZWgjHlt7JORk ZQFlUWMfUVx5QMRtOTjqhc ZbYFulAmilKNcsS89ceXBr ZCANClxwbGFpblxmMVxmcz XjHTVlUQO6q18kJ3zcYJHY izIggR9anYCbF2gpWjMhqP YzTB0PPMQtmrDjKTiafWku wL1uuFEzT8qwXiEjVtggaH ljTmVzdERvYzEgDQpcbHRy nDQfVF0SVZHhOWSsRRpcso PjJZVoY3JxrlChRAwrKFIi vq9jwHdcXFblTgPeXFNmh5 p5nKH3kXFfhBC3oVQohUeb YdAsKZ6tbNWdMK6bHZcdQZ yedjHro3MdHU41eIRrqtMo pxAfIEM7ShUeLRrkUYDxO1 HzTQP6l67jO3juOTRtpIB0 qSUveWLwG54tXV1JkRnknx sdNYHyUZAmUXBYjYXcu31x tCV8kqGpWdHpOVVcVsKnzV M7OH5rvGowvdntkNZfGZk2 mSGbHWDsYgZfrZxzl0PbKS YzPXulAN66MVmhdWItHGqm PJK6Ck9moCThLPSujfY2f6 RvIGluIEExLiAgQUtccGFy DS4KJPJmphEGXmhkSTPpBA QrlNNVe6YvLTPZGnyfHrCj ZnMyMiANClxlcGljTmVzdE FyJuO1HTChbNMeSWN6AA6s uVqyCAHoQ2IjB7CcflN5OK DkhbHTAhniYHAnBA4SXRMp RCtvIR3QvH== [facility] Adzl9326-17-09 10:46:15* Test Item Value Reference Range Interpretation Comme nts Case Report (test code = 104) Surgical Pathology Report Case: [id number] Authorizing Provider: Bairon Hansen MD Collected: 02/28/2025 12:23 PM Ordering Location: [facility] Received: 02/28/2025 07:15 PM SERVICES Pathologist: Fabienne Whitt MD Specimen: Stomach, Antrum, bx r/o H-Pylori DIAGNOSIS (test code = 3220) f3ieyKEgUQTzy3gjEYVfbM FuZzEwMzNcZnRuYmpcdWMx ISvziyDjZFplvZfxWSL7GP VhOT5wvEhogUz3uLhyDKLs asM5iRIgJVtzn7fzLNK6x7 weemthSRKzODqbQs9lfYOt eUucTiHmRQOrXMp2xG31OY YrgL2kySHuPHp9MRXrsAQf xwBuIkTlDQMzhSApxLI2OV VjMZ7zuilkKWewRDvvTFHd evK6JVNflAJyX6AxXDQmHV 8ozxpyJLW0ONagVWXsAPR8 PlGwGYUpu1Bpebv5VsFpxO FyZFxwbGFpblxmczIwIFNU V60DV6imMLHOE8CCKFdziJ NaNCJssvQgV5MyzTGvErEh lhGyXPgnMQ21S26sPTI2mL McEU0ryIQxG8xvu37cNsZu HEV2fmj9cKHpAFrpIMR1jD GqCHHocpYxWm7yQJ9xzIsx p9HeOF3yY9JpcJEtnoQkUB OjhNpbuOWqRYG4TVHwcJYc nkCba2MkuK3yjBTfkPgfhm XpOWhud3IgPMfvWMPaCY0l aWglTEUcVH1dCEYiY7epyA 0ktez2ZaWiOFVnDeD9MLVa nfZ6Psv4EYRgYWdbl7fpu6 AxXMWbOLg4bIvjEuInCPYz j8ugwiGtHgDmANYrSZZbYX FhzDCiM931o4trn9srzrKu kBS1TDIfTPQ1XQqhlwMtrj Q5OAtatDMfEiI2IFdwqlPa BJlulaVtduVmMpr9WWRsS1 80HNL2iHitb3lmANX3FQLe LLHwAbWoHp4rxRVeX127UT YeLDHWLIIcgKt1RIXvhzBm kkIzbXUCb663G690w7ptHK OeloAigUlVwhnjd0sjJ232 XHBhcGVydzEyMjQwXHBhcG TxdZT2UUCgCA7wgadcNBvh QTkfXCSfimV1MRTeeBNqZ5 NiOKNqNL4rcawmDSE0DCcz NQUzEQW8EcMnPXUzt7Vkkl l3PaFvlj7krt29HYW5f5Jb vJjfSED0IES0MwGnHl2reD BlYCWfMB3pLdLufUWdGGAz fd34kNoiDPdcPOE9JHSfqx Lnn9Smi8mcLmZwcvQfI2wd X9EtFXTgOSDlENEdSdRusp Nmn8Bcf9JpjOEjhHn5w6hq KBFcKLIjfYguj4xbKYC7XK LseKUpE7evzZ9lNMDjKL2y fbmgc0juAUfrILqpVHIbrT Y9ncD8UKNywURhK8PziF6i XATjUUmsZCCossi5RrRwJm 9vdGVyeTcyMFxzYmtwYWdl XHBnbmNvbnRccGduZGVjXH BsYWluXHBsYWluXGYwXGZz MjRccWxcbGFuZzEwMzNcaG ljaFxmMVxkYmNoXGYxXGxv X4kxFpRvQoEyLyk8AYPztQ AhPBErEym8DXMenUSxUHXS iFuujK6eYVOlvQjatW6wbN J1DOZrnqKzbASCtV1uNUTI xP6cQzC5PSWmCqi0IVX9Rm FccGFyfX0= CPT Code(s) (test code = 3357) u6uafHVcSWKebRWlLJglYa djviHaIYPlcJOcB7Mgcyav MLujPD2gRY8hcMvtoHJlfR DwVMFrFhClb5zwn416rDSs e2ntWTEDawlpjLr6bAczA0 3xp6M4BmxnV83jcRFaXSK0 OYVqVTBicMQcALJwVCW0AH PlqFRuE8nsDMZlFE3tinkh ZIzsLQcaHYAuaNR4NOBztQ PjK1DhMOGfEMniULRzzra5 IvPoYq6srRCdnTpaKEsxOP JkXHBsYWluXGZzMjAgODgz MDVccGFyfQ== CLINICAL HISTORY (test code = 3356) t7sukHWwXRPfqSAkGRvwDs beyuRaZIYmuSRsF3Fdjzkf CJsiYX4cTV5ufJefcIJiyO ViDMHjQfOgh5dgg867hVAr x7qeZUILenqeoEn0hCtvP7 1or3D9VqsnQ77dyNOpICC4 UXRcSFXbuLUsYIWuPVK5ND QxkGJrI6dlUTRlOE8zffne AIjjTWvoWRLluZC1LDCbeM LjP0SyUHBoDExzQLFgzkd6 GmQxPf9jeXFkuVtkQTvdIF JkXHBsYWluXGZzMjAgRXNv pCmyL8NsxKV5QWFuS2DeNG dpdGhvdXQgYmxlZWRpbmcg KEhDQylcbGluZSBFbmNvdW 55ZVXyCp1zHLMhjaPjmhcn XjJoh8FuzSStgOgjFE47VO 0bm4PjKYXhJE8uGLCpeX6h IFxwYXJ9 GROSS DESCRIPTION (test code = 6479331192) b4dnxYZjBTOdxUHZZTW7TS OjIT9gtEulnRd4sAqfZSHq gpP9uQEgBEsxv6woILR9o6 fuxgYZWrnuSZUbFG2cYJzd XUVuDX3eQjOvTQWlWzZvSA BhcGVydzEyMjQwXHBhcGVy aEM9DPRxVY3mvzrdGNjiWT tkXBOaxnW6LSNpxCAiZ5Lz MCCvFT8fyjwtLCM3VNZZVs coTq3cxRSftDGCOlhoNnBe VoWrADQiJGZgIZRwh2mrvc CBsmwquLi3NXr8ZTWlJWYc hUNcb9E6ZCqgi9hsr3YwEO PyA9OxpoZBPNGlUah3rE8M y9ozm2nipmEqoXvosgBmAL viptKhswToPdr8QYZ2bV6L NSMhC6RmVE3Hm9tlQRGuaF MlFTW1PZaqa2qiRRtoWBM9 VFNnQGAtBQDzMG2RFqRnNB JbRBivOxcfNzK5ESo2TJEA GQWgJhA5DdK6EDH7FCk2OE PsRI0uQZjtyOMmMXdfYafu TEqnU247QWdsUISrC5OqB7 QgXFxzZyBcXGlkIDUxMDAy IHyfOONjB6XZFEQeZnLxWU G4MIGzPEc2OCm5TR8FLsUt HEE6FptpAJx8ASKoKNe9HT aoLE4PGFKtEJiaTle6NTGr TXWvJWDkJZj4EHTmLQdjdh UnUMthClpkUPzeA76zbUKc ZCANClxwbGFpblxmMVxmcz MiPSXhWBF6u02eM2bvOEOI nyFkcV9zuUClM6cqPtKvhL CiHO8ICODzrsYkMSpjxOco nN2nwNUpF9kzQeThAemulE ljTmVzdERvYzEgDQpcbHRy fSThIH0RFWBmFIJgTWzpwf RrEFCxM1AlmkOtHXhgEGPw ei0doEqnDBooQlZqLOBxx0 r1hBY1lWSulDD4eJKteMas DdTsZB7uoMXdPI8yDLhqFR ijdcMse6CkDP25kPSimxAw yiPaFUL2ZaIiEHwgWUHbJ2 LaDVF6v19mS5kgKSYqjIN5 vATjcPWxT12qWV9EyJfchp tkXBGoQMEwWTXDkEKzz11x fRJ0inRxZeOdRZTeTtMdzL J9XZ5hpSsjpkdhrCOwWSg6 jILyXAErCeZioBiqd3WhDP XuYNwdYN27YFxeyQRhKKao BLA7Wx6aiCDrVKCjzxP9z1 RvIGluIEExLiAgQUtccGFy QV9WPKSjnmRPCfgdFYRwQC QjaAGAh6QqVSADQoiaSlQm ZnMyMiANClxlcGljTmVzdE SbUoI8ABEfiTJzWAU8CN0q tPdzSTIkM4EeI9VjujH2EZ GmuxISPgsyVLLaEO7DAOWq UYbdPK1PkL== [facility] DiegoTISS[facility] KEFT7313-82-29 10:46:15Surgical Pathology Report Case: [id number] Authorizing Provider: Bairon Hansen MD Collected: 02/28/2025 12:23 PM Ordering Location: [facility] Received: 02/28/2025 07:15 PM SERVICES Pathologist: Fabienne Whitt MD Specimen: Stomach, Antrum, bx r/o H-Pylori STOMACH, BIOPSY:-Gastricantral mucosa with mild chronic gastritis, inactive-No H. pylori organisms identified by routine stain Signing Pathologist Direct Phone Line: [phone] signed by Fabienne Whitt MD on 03/01/2025 at 10:46 [id number] varices without bleeding (HCC)Encounter for screening for malignant neoplasm of colon A. Stomach, AntrumReceived in formalin labeled with the patient'sname, medical record number and "Stomach, Antrum bx r/o H-Pylori." It consists of a 0.3 cm woody-pink, irregular soft tissue fragment which is submitted in toto in A1. AKCT brain without IV daoavjmd7651-06-89 15:26:56CT Head without contrast CLINICAL HISTORY: Stroke, [...] skull is intact. The visualized paranasal sinuses arewell-aerated.[facility] CenterCT [facility] WITHOUT IV XLAORBZL3328-87-97 15:26:56 [facility] : 1970 Sex: FCT Head [...] acute infarct, hemorrhage, or hydrocephalus.Electronically Signed By:Antonio Hylton02/26/2025 15:28 CDTWorkstation Name: [id number] tolerance(Non- Nuclear Treadmill)2025-02-21 23:04:00Protocol Name Lexiscan Time [...] MD Duran Mahboob ([id number]) on 02/21/2025 11:03:55 [facility]2025-02-21 23:04:00Protocol Name Lexiscan Time In [...] MD Duran Mahboob ([id number]) on 02/21/2025 11:03:55 [facility] CenterT[facility] tolerance([facility]uclear Treadmill)2025-02-21 23:04:00Protocol Name Lexiscan Time In [...] MD Duran Mahboob ([id number]) on 02/21/2025 11:03:55 [facility] CenterVASCULAR DIAGRAM -SWSG9463-20-49 09:04:25Ordered by an unspecified provider.[facility] CenterVASCULAR DIAGRAM -YYQI6027-16-67 09:04:25Ordered by an unspecified provider.[facility] CenterVASCULAR DIAGRAM -VGDI6309-11-02 09:04:25 Ordered by an unspecified provider.[facility] CenterHEPATIC FUNCTION IWBJN0169-84-66 06:17:26* Test Item Value Reference Range Interpretation [...] 14 U/L <34 Specimen moderately ictericBASIC METABOLIC BEUBB8365-16-89 06:17:06* Test Item Value Reference Range Interpretation [...] Specimen moderately ictericCBC W/PLT COUNT & AUTO VVXUOHBBAXXX9697-45-63 05:52:50* Test Item Value Reference Range Interpretation [...] = 2801) 0.40 % 0.00-1.00 COMPREHENSIVE METABOLIC EWZAH5141-94-50 05:49:53* Test Item Value Reference Range Interpretation [...] not applicable for dialysis patients Specimen moderately zjsxvlePZODMKWFZ5613-76-16 05:49:17* Test Item Value Reference Range Interpretation Comme nts MAGNESIUM (BEAKER) (test cod e = 627) 2.1 mg/dL 1.6-2.6 QEUEIHDFRH9833-89-54 05:49:17* Test Item Value Reference Range Interpretation Comme nts PHOSPHORUS (BEAKER) (test co de = 604) 4.1 mg/dL 2.5-4.5 SASTOJEUVJMEQ0912-03-28 05:49:17* Test Item Value Reference Range Interpretation Comme nts TRIGLYCERIDES (BEAKER) (test code = 540) 68 mg/dL TRIGLYCERIDE REFERENCE RANGELow Risk <150Borderline Risk 150-199High Risk 200- 499Very High Risk >=500Specimen moderately ictericCBC W/PLT COUNT & AUTO YWOQRHELBKXP3431-99-43 05:24:21* Test Item Value Reference Range Interpretation [...] 0.00-1.00 CT ABDOMEN/PELVIS WITH IV CONTRAST Standard Nfhktrxv5293-88-16 23:40:15 EXAMINATION: CT ABDOMEN/PELVIS WITH IV CONTRAST [...] lesion is identified.. . Mult ileveldiscovertebral degenerative changes..[facility] CenterCT [facility]EN/PELVIS WITH IV YRKXKHPE8363-07-10 23:40:15 [facility] : 1970 Sex: FEXAMINATION: [...] recommendations..Electronically Signed By: Richy Gonzales 23:43 CDTWorkstationName: [id number] w/Microscopic + Reflex to Btqlqkb5522-15-85 21:26:18* Test Item Value Reference Range Interpretation Comme nts Color, UA (test code = 5778-6) Yellow Clarity, UA (test code = 5767-9) Hazy Specific [place], UA (test code = 5811-5) 1.021 1.001-1.035 pH, UA (test code = 5803-2) 5.5 5.0-8.0 Protein, UA (test code = 86723-6) Negative Negative Glucose, UA (test code = 365) Negative Negative Ketones, UA (test code = 2514-8) Negative Negative Bilirubin, UA (test code = 30470-7) Negative Negative Blood, UA (test code = 70181-7) Negative Negative Nitrite, UA (test code = 5802-4) Negative Negative Leukocytes, UA (test code = 5799-2) Negative Negative Urobilinogen, UA (test code = 67685-6) 0.2 0.2-1.0 RBC, UA (test code = 65247-8) 2 See_Comment [[employer]] The system which generated this result transmitted reference range: /HPF. The reference range was not used to interpret this result as normal/abnormal. WBC, UA (test code = 5821-4) 2 See_Comment [[employer]] The system which generated this result transmitted reference range: /HPF. The reference range was not used to interpret this result as normal/abnormal. Mucus (test code = 8247-9) Rare Squam Epithel, UA (test code = 42459-4) 8 See_Comment [[employer]] The system which generated this result transmitted reference range: /HPF. The reference range was not used to interpret this result as normal/abnormal. Hyaline Casts, UA (test code = 34649-7) 9 See_Comment [Automated messa ge] The system which generated this result transmitted reference range: /LPF. The reference range was not used to interpret this result as normal/abnormal. Specimen Source (test code = 2795) BLANCA (test code = BLANCA) Fundraising Manager ID - [auto]Fundraising Manager ID - tech [facility] REFLEX URINE [id number] 21:26:18 * Test Item Value Reference Range [...] 9 /LPF SOURCE(BEAKER) (test code = 2795) Fundraising Manager ID - [auto]Fundraising Manager ID - techLACTIC ACID, [id number] 21:14:43* Test Item Value Reference Range Interpretation Comme nts LACTATE BLOOD VENOUS (2) (BEAKER) (test code = 2872) 1.56 mmol/L 0.50-2.20 Specimen moderat trish hemolyzed Specimen slightly ictericPROTHROMBIN TIME/[id number] 21:11:29* Test Item Value Reference Range Interpretation Comme nts PROTIME (BEAKER) (test code = 759) 16.9 seconds 9.9-12.7 H INR (BEAKER) (test code = 370) 1.51 See Comment RECOMMENDED COUMADIN/WARFARIN INR THERAPY RANGESSTANDARD DOSE: 2.0 - 3.0 Includes: PROPHYLAXIS for venous thrombosis, systemic embolization; TREATMENT for venous thrombosis and/or pulmonary embolus.HIGH RISK: Target INR is 2.5-3.5 for patients with mechanical heart valves.Fundraising Manager ID -PT/[id number] 20:42:03* Test Item Value Reference Range Interpretation [...] is 2.5-3.5 for patients with mechanical heart valves.Fundraising Manager ID -COMPREHENSIVE METABOLIC [id number] 20:40:26* Test Item Value Reference Range Interpretation [...] = 652) 120 mg/dL 70-105 H CALCIUM (BEAKER) (test code = 697) 8.7 mg/dL 8.4-10.2 AST (SGOT) (BEAKER) (test code = 353) 44 U/L 11-34 H ALT (SGPT) (BEAKER) (test code = 347) 15 U/L <34 EGFR (BEAKER) (test code = 1092) 97 [...] not applicable for dialysis patients Specimen moderately [id number] 20:40:01* Test Item Value Reference Range Interpretation Comme nts LIPASE (BEAKER) (test code = 749) 52 U/L <=60 Specimen moderately ictericUS abdomen [id number] 20:38:32TECHNIQUE: Grayscale ultrasound of the right abdomen. [...] hydronephrosis. No sonographicallyevident solid mass lesion. Nonobstructing stone.[facility] CenterUS ABDOMEN [id number] 20:38:32 [facility] : 1970 Sex: FTECHNIQUE: [...] of the liver.Postcholecystectomy status.Electronically Signed By: Ivonne Hall 025 20:40 CDTWorkstation Name: [id number] W/PLT COUNT & AUTO DIFFERENTIAL 2025-02-14 20:23:59* [...] = 2801) 0.30 % 0.00-1.00 Blood gas, upoygjxv9680-88-45 14:44:34* Test Item Value Reference Range Interpretation Comme nts pH, Arterial (test code = 2744-1) 7.66 7.35-7.45 HH pCO2, Arterial (test code = 2018-) 16 35-45 LL pO2, Arterial (test code = 2703-7) 182 80-90 H O2 Sat, Arterial (test code = 2708-6) 99.5 % 96.0-97.0 H HCO3, Arterial (test code = 1960-4) 17 mmol/L 21-29 L Base Excess, Arterial (test code = 1925-7) -0.2 mmol/L -2.0-3.0 Patient Temperature (test co de = 8310-5) 37.0 Lab Interpretation (test cod e = 32843-2) Abnormal [facility] CenterBlood gas, hqzhwhpg0461-88-77 14:44:34* Test Item Value Reference Range Interpretation [...] 37 Lab Interpretation (test cod e = 02452-7) Abnormal [facility] CenterBLOOD GAS, [id number] 14:44:34* Test Item Value Reference Range Interpretation [...] = 1818) 37.0 URINALYSIS W/ REFLEX URINE [id number] 14:31:27* Test Item Value Reference Range Interpretation [...] 16 /LPF SOURCE(BEAKER) (test code = 2795) Fundraising Manager ID - [auto]Fundraising Manager ID - techMM digital mammo screen with joyce ufuzikyki0187-89-02 13:31:17* Test Item Value Reference Range Interpretation Comme nts Radiology Study observation (narrative) (test code = 15185-9) IMP (test code = IMP) No mammographic [...] either breast. Lab Interpretation (test code = 87585-7) Normal [facility] digital mammo screen with joyce cbmyiybhv0349-13-92 13:31:17* Test Item Value Reference Range Interpretation Comme [facility] Radiology Study observation (narrative) (test code = 69463-0) IMP (test code = IMP) No mammographic [...] either breast. Lab Interpretation (test code = 66379-1) Normal [facility] DIGITAL MAMMO SCREEN WITH JOYCE [id number] 13:31:17[facility] : 1970 Sex: F [...] of the results and recommendations.Overall: 2 - BenignJude Messina MD; Grant Moss MD51:31 PM CDTECG 12 [id number] 09:33:06Ventricular Rate 91 BPMAtrial Rate 91 BPMP-R Interval 150 msQRS Duration 74 msQ-T Interval 396 msQTC Calculation(Bazett) 487 msP Gonzales 53 degreesR Gonzales -28 degreesT Gonzales 43 degrees Normal sinus rhythmProlonged QTAbnormal ECGWhen compared with ECG of 01-FEB-2025 12:30,No significant change was foundConfirmed by Frank Becerril ([id number]) on 02/08/2025 9:33:05 [facility] - SCAN 2025-02-08 09:07:27Ordered by an unspecified provider.[facility] CenterCARDIAC CATH REPORT - [id number] 09:07:27Ordered by an unspecified provider.[facility] CenterCARD[facility]AC CATH REPORT - [id number] 09:07:27Ordered by an unspecified provider.[facility] CenterCarotid doppler xttmaejmh8228-24-84 17:28:23[facility] LAB - Carotid Duplex Study Demographics Patient Name CHUCK CADET Date of Study 02/01/2025 ROXANN Age 54 Visit Number [id number] Gender Female Accession Number [id number] Date of 1970 Referring Rise Ellie Room Number Physician [facility] Lorenzo Lead Designer Suze Fuentes Interpreting Jessie Marrufo Physician FellowProcedureType of Study: Cerebral: Carotid, CAROTID DOPPLER, BILATERAL.Indications for Study:Liver transplant evaluation.Patient Status:Routine.Study Location:Vascular Lab.Technical Quality:Adequate visualization.ImpressionsRight Impression1. The internal, common and external carotid arteries are within normallimits.2. The vertebral artery flow is antegrade and normal.3. The subclavian artery is within normal limits where visualized.Left Impression1. The internal, common and external carotid arteries are within normallimits.2. The vertebral artery flow is antegrade and normal.3. The subclavian artery is within normal limits where visualized. Conclusions Summary Carotid duplex scanning and color flow imaging were performed bilaterally. Thearteries were well visualized and no areas of stenosis were found bilaterally. Doppler flow velocities were within normal range bilaterally. The vertebral artery flow was antegrade and normal bilaterally. Signature Velocities are measured in cm/s ; Diameters are measured in cmCarotid Right Measurements+ +----+----+-----+ + +---- -------+!Location !PSV !EDV !Angle!%Stenosis 2D!%Stenosis Doppler!Tortuosity !+ +----+----+--- --+ + + +!Prox CCA !84.9!16.6!60 ! ! ! !+ +----+- ---+-----+ + + +!Dist CCA !115 !30.3!60 ! ! ! !+ +----+----+-----+ + + +!Prox ICA !79 !20.2!60 !0% ! ! !+------- --------+----+----+-----+ + + +!Dist ICA !65.7!18.9!14 ! ! ! ! + +----+----+-----+ + + +!Pro x ECA !74.8!23.2!60! ! ! !+ +----+----+-----+ + + +!Ve rtebral !49.3!15 !60 ! ! ! !+ +----+----+-----+ + + +!Pr ox Subclavian!136 !0 !62 ! ! ! !+ +----+----+-----+ + + + - There is antegrade vertebral flow noted on the right side. - Additional Measurements:ICAPSV/CCAPSV 0.69.ICAEDV/CCAEDV 1.22.Carotid Left Measurements+ +----+----+-----+ +-- + +!Location !PSV !EDV !Angle!%Stenosis 2D!%Stenosis Doppler!Tortuosity !+- +----+----+-----+ + + +!Prox CCA !172 !44.4!62 ! ! ! !+ +----+----+-----+ + + +!Di st CCA !133 !34.5!62 ! ! ! !+ +----+----+-----+ + + +!Pr ox ICA !76.9!19.7!62 !0% ! ! !+ +----+----+-----+ + + +!D ist ICA !93.6!31 !62 ! ! ! !+ +----+----+-----+ + +-------- ---+!Prox ECA !68.3!13.9!62 ! ! ! !+ +----+----+-----+ + +- +!Vertebral !57.5!18.4!62 ! ! ! !+ +----+----+-----+ + -------+ +!Prox Subclavian!148 !0 !62 ! ! ! !+ +----+----+-----+ + + + - There is antegrade vertebral flow noted on the left side. - Additional Measurements:ICAPSV/CCAPSV 0.7.ICAEDV/CCAEDV 0.7.[facility] Carotid doppler [id number] 17:28:23PV LAB - Carotid Duplex Study Demographics Patient Name CHUCK CADET Date of Study 02/01/2025 ROXANN Age 54 Visit Number [id number] Gender Female Accession Number [id number] Date of 1970 Referring Rise Ellie Room Number Physician ELLIE RISE Mejia. Lead Designer Suze Fuentes Interpreting Physician NABEEL Barriga FellowProcedureType of Study: Cerebral: Carotid, CAROTID DOPPLER, BILATERAL.Indications for Study:Liver transplant evaluation.Patient Status:Routine.Study Location:Vascular Lab.Technical Quality:Adequate visualization.ImpressionsRight Impression1. The internal, common and external carotid arteries are within normallimits.2. The vertebral artery flow is antegrade and normal.3. The subclavian artery is within normal limits where visualized.Left Impression1. The internal, common and external carotid arteries are within normallimits.2. The vertebral artery flow is antegrade and normal.3. The subclavian artery is within normal limits where visualized. Conclusions Summary Carotid duplex scanning and color flow imaging were performed bilaterally. Thearteries were well visualized and no areas of stenosis were found bilaterally. Doppler flow velocities were within normal range bilaterally. The vertebral artery flow was antegrade and normal bilaterally. Signature Velocities are measured in cm/s ; Diameters are measured in cmCarotid Right Measurements+ +----+----+-----+ + +---- -------+!Location !PSV !EDV !Angle!%Stenosis 2D!%Stenosis Doppler!Tortuosity !+ +----+----+--- --+ + + +!Prox CCA !84.9!16.6!60 ! ! ! !+ +----+- ---+-----+ + + +!Dist CCA !115 !30.3!60 ! ! ! !+ +----+----+-----+ + + +!Prox ICA !79 !20.2!60 !0% ! ! !+------ ---------+----+----+-----+ + + +!Dist ICA !65.7!18.9!14 ! ! ! ! + +----+----+-----+ + + +!Pro x ECA !74.8!23.2!60! ! ! !+ +----+----+-----+ + + +!Ve rtebral !49.3!15 !60 ! ! ! !+ +----+----+-----+ + + +!Pr ox Subclavian!136 !0 !62 ! ! ! !+ +----+----+-----+ + + + - There is antegrade vertebral flow noted on the right side. - Additional Measurements:ICAPSV/CCAPSV 0.69.ICAEDV/CCAEDV 1.22.Carotid Left Measurements+ +----+----+-----+ +- + +!Location !PSV !EDV !Angle!%Stenosis 2D!%Stenosis Doppler!Tortuosity !+ +----+----+-----+ + + +!Prox CCA !172 !44.4!62 ! ! ! !+ +----+----+-----+ + + +!Di st CCA !133 !34.5!62 ! ! ! !+ +----+----+-----+ + + +!Pr ox ICA !76.9!19.7!62 !0% ! ! !+ +----+----+-----+ + + +!Simone duenast ICA !93.6!31 !62 ! ! ! !+ +----+----+-----+ + +-------- ---+!Prox ECA !68.3!13.9!62 ! ! ! !+ +----+----+-----+ + + +!Vertebral !57.5!18.4!62 ! ! ! !+ +----+----+-----+ + -------+ +!Prox Subclavian!148 !0 !62 ! ! ! !+ +----+----+-----+ + + + - There is antegrade vertebral flow noted on the left side. - Additional Measurements:ICAPSV/CCAPSV 0.7.ICAEDV/CCAEDV 0.7.[facility]NM [facility] SPECT,pharm(LEXISCAN)2025-02-01 13:41:19PROCEDURE: MYOCARDIAL PERFUSION SPECT IMAGING (Rest/Stress)CPT CODE: 64058 INDICATION: Preliver transplant CARDIOVASCULAR PROFILE: CAD History: No known history of CAD Symptoms: None Risk Factors: Prior CVA BMI: 32 STRESS PROTOCOL: Pharmacologic stress was achieved with a 10-second intravenousinfusion of regadenoson 0.4 mg. The radiopharmaceutical was hdhoiuerucde99 seconds after the start of the regadenoson [...] >70%). LV Volume: Not significantly changed from rest.[facility] myocardial perfusion SPECT,pharm(LEXISCAN)2025-02-01 13:41:19PROCEDURE: MYOCARDIAL PERFUSION SPECT IMAGING (Rest/Stress)CPT CODE: 21444 INDICATION: Preliver transplant CARDIOVASCULAR PROFILE: CAD History: No known history of CAD Symptoms: None Risk Factors: Prior CVA BMI: 32 STRESS PROTOCOL: Pharmacologic stress was achieved with a 10-second intravenousinfusion of regadenoson 0.4 mg. The radiopharmaceutical was uclmzkqcaokl63 seconds after the start of the regadenoson [...] >70%). LV Volume: Not significantly changed from rest.[facility] MYOCARDIAL PERFUSION SPECT, [id number] 13:41:19 [facility] : 1970 Sex: FPROCEDURE: MYOCARDIAL PERFUSION SPECT IMAGING (Rest/Stress)CPT CODE: 06172PUSZDXNWPR: Preliver transplantCARDIOVASCULAR PROFILE: CAD History: No known history of CAD Symptoms: None Risk Factors: Prior CVA BMI: 32STRESS PROTOCOL: Pharmacologic stress was achieved with a 10-second intravenousinfusion of regadenoson 0.4 mg. The radiopharmaceutical was ejxbcfhlkvue80 seconds after thestart of the regadenoson infusion.IMAGING [...] Signed By: Rick Snider02/01/2025 13:43 CDTWorkstation Name: [id number] W CONTRAST & [id number] 10:23:13Transthoracic Echocardiography Report (TTE) Demographics Patient Name CHUCK CADET Date of Study02/01/2025 ROXANN Gender Female Visit Number [id number] Race Room Number OP Number Date of 1970 Referring Ellie Ventura Physician Age 54 year(s) Lead Designer Jess Castrejon, [facility] Open End Spinning Operator Jess Castrejon, Ricardo Anderson, R DCS Physician MDProcedure Type of Study TTE procedure:2DECHO W/CONTRAST & DOPPLER (Routine)Indications:Pre-surgical evaluation of organ transplant.Clinical HistoryETOH USE, CVA, SEIZURE DISORDERContrast Medium: Definity. Amount - 2 mlHeight: 62 inches Weight: 79.38 kg (175 lbs) BSA: 1.81 m^2 BMI: 32.01 kg/m^2HR: 86 bpm BP: 128/75 mmHg Summary [...] 0.16 m/s. IV saline contrast injection was negativefor a PFO (patent foramen ovale) at rest and post Valsalva . IV saline contrast with delayed imaging demonstrates intra pulmonic shunting. No significant valve disease detected. Estimated peak systolic PA pressure is 20-25 mmHg (normal range) . Previous Study No prior studies available for comparison. Signature Electronically signedby Carlos Anderson MD(Interpreting physician) on 02/01/2025 10:23 AM Findings Rhythm/BP Regular sinus rhythm during the exam. Left Ventricle LV endocardium is well visualized with IV ultrasound enhancing agent. The left ventricle chamber size (by vol index) is normal (female - LVED vol - 29-61ml/m2). Normal LV wall thickness. Global LV systolic function normal . LVEF by Shaffer's method of disk assessment is normal (65-70%) . All of the LV segments contract normally . Normal diastolic function. High (cardiac index >4 L/min/m2) cardiac output state at rest is noted. LV global longitudinal strain (GLS) is: - 20.2 %. Left Atrium LA size is normal (16-34 ml/m2) . Right Ventricle RV chamber size is normal . Global RV systolic function is normal. TAPSE 22mm, S' 0.16 m/s. Right Atrium RA size is normal. Atrial Septum IVsaline contrast injection was negative for a PFO (patent foramen ovale) at rest and post Valsalva .IV saline contrast with delayed imaging demonstrates intra pulmonic shunting. The degree of intrapul monary shunting appears to be mild . Aortic [...] is normal . Proximal ascending aorta size is normal . Pericardium An echo lucent space is noted consistent with prominent pericardial fat pad. No pericardial effusion is visualized. IVC/SVC/PA/PV/Pleural The IVC is <2.1cm and >50% collapsible suggestive of RAP of 3 mm Hg.Chambers/Structures Left Atrium LA Volume: 49.31 ml LA Area: 17.5cm^2 LA Vol. Index: 27 ml/m^2 Left Ventricle LVIDd: 4 cm LVEDV:70.11 ml LVIDs: 2.56 cm LVESV:16.82 ml LV Septum Diastolic: 0.79 cm LVEF 2D Cube: 73.8 % LV PW Diastolic: 0.8 cm LVEDV Shaffer's:105.46 ml LV Length: 9.14 cm LVESV Shaffer's:32.39 ml LV FS: 36 % LVEF Shaffer's: 69.3 % LVEDVI: 58 ml/m^2LVOT Diameter: 2.06 cm LVESVI: 18 ml/m^2 LVEF: [...] Mean Gradient: 2.44 mmHg Estimated PASP: 21.64 mmHgKaiser Foundation Hospital W CONTRAST & [id number] 10:23:13 Transthoracic Echocardiography Report (TTE) Demographics Patient Name CHUCK CADET Date of Study02/01/2025 ROXANN Gender Female Visit Number [id number] Race Room Number OP Number Date of 1970 Referring Ellie Ventura Physician Age 54 year(s) 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 Amount - 2 mlHeight: 62 inches Weight: 79.38 kg (175 lbs) BSA: 1.81 m^2 BMI: 32.01 kg/m^2HR: 86 bpm BP: 128/75 mmHg Summary LVEF by Shaffer's method of disk assessment is normal (65-70%) . Normal diastolic function. High (cardiac index >4 L/min/m2) cardiac output state atrest is noted. LV global longitudinal strain (GLS) is: - 20.2 %. RV chamber size is normal . GlobalRV systolic function is normal. TAPSE 22mm, S' 0.16 m/s. IV saline contrast injection was negative for a PFO (patent foramen ovale) at rest and post Valsalva . IV saline contrast with delayed imagingdemonstrates intra pulmonic shunting. No significant valve disease detected. Estimated peak systolic PA pressure is 20-25 mmHg (normal range) . Previous Study No prior studies available for comparison. Signature Findings Rhythm/BP Regular sinus rhythm during the exam. Left Ventricle LV endocardium is well visualized with IV ultrasound enhancing agent. The left ventriclechamber size (by vol index) is normal (female [...] longitudinal strain (GLS) is: - 20.2 %. Left Atrium LA size is normal (16-34 ml/m2) . Right Ventricle RV chamber size is normal . Global RV systolic function is normal. TAPSE 22mm, S' 0.16 m/s. Right Atrium RA size is normal. Atrial Septum IVsaline contrast injection was negative for a PFO (patent foramen ovale) at rest and post Valsalva . IV saline contrast with delayed imaging demonstrates intra pulmonic shunting. The degree of intrapulmonary shunting appears to be mild . Aortic Valve Normal tri-leaflet aortic valve. No evidence ofaortic stenosis. Minimally increased velocities due to increased flow. No evidence of aortic regurgitation. Mitral Valve Normal MV structure. No evidence of mitral regurgitation. There is no evidenceof mitral stenosis. Tricuspid Valve Mild tricuspid regurgitation. Estimated peak systolic PA pressure is 20-25 mmHg (normal range) . Pulmonic Valve Normal PV structure. A trace of pulmonary regurgitation. Aorta Aortic root size (Sinus of Valsalva diameter) is normal . Proximal ascending aorta sizeis normal . Pericardium An echo lucent space is [...] Velocity: 0.65 m/s Peak Gradient: 2.11 mmHg Mean Gradient: 1.92 mmHg Deceleration Time: 163.3 msec Area [...] Gradient: 2.44 mmHg Estimated PASP: 21.64 mmHgCHI Children'S Hospital Of San DiegoBLOOD GAS, [id number] 09:06:59* Test Item Value Reference Range Interpretation [...] = 1819) 21.0 CT ABDOMEN/PELVIS WITH IV [id number] 00:26:34 [facility] : 1970 Sex: FTECHNIQUE: [...] Signed By: Jonna Marroquin01/30/2025 00:29 CDTWorkstation Name: [id number] METABOLIC [id number] 20:39:01* Test Item Value Reference Range Interpretation [...] not applicable for dialysis patients Specimen moderately [id number] 20:36:33* Test Item Value Reference Range Interpretation Comme nts LIPASE (BEAKER) (test code = 749) 28 U/L <=60 Specimen moderately ictericURINALYSIS W/ REFLEX URINE [id number] 20:31:15 * Test Item Value Reference Range [...] 518) Moderate SOURCE(BEAKER) (test code = 2795) Fundraising Manager ID - [auto]Fundraising Manager ID - techCBC W/PLT COUNT & [...] K/ L 0.01-0.08 IMMATURE GRANULOCYTES-RELATI VE PERCENT (MANNY) (test code = 2801) 0.30 % 0.00-1.00 TOXOPLASMA GONDII ANTIBODY, [id number] 16:05:03* Test Item Value Reference Range Interpretation Comme nts TOXOPLASMA GONDII IGG QUANTI TATIVE (MANNY) (test code = 3428) < IU/mL <10.0 Toxoplasma Gondii IgG Result Interpretation: </= 9.9 IU/mL Normal 10-11 IU/mL Equivocal >/= 12 IU/mL PositiveT-SPOT(R).[id number] 14:54:19* Test Item Value Reference Range Interpretation Comme nts T-SPOT.TB (test code = 69497-4) Negative SeeBelow Normal Value: Ne gativeA negative [...] CORRECTED FOR NEG CONTROL (test code = 42049-1) 1 NEGATIVE CONTROL (test code = 35439-8) Passed POSITIVE CONTROL (test code = 89111-0) Passed BLANCA (test code = BLANCA) [id number] [facility] CenterT-SPOT(R).[id number] 14:54:19* Test Item Value Reference Range Interpretation Comme nts T-SPOT.TB (test code = 00451-4) Negative SeeBelow Normal Value: Ne gativeA negative [...] CORRECTED FOR NEG CONTROL (test code = 93105-5) 1 NEGATIVE CONTROL (test code = 92900-1) Passed POSITIVE CONTROL (test code = 92842-6) Passed BLANCA (test code = BLANCA) [id number] [facility] CenterCYTOMEGALOVIRUS ANTIBODY, [id number] 14:51:25* Test Item Value Reference Range Interpretation Comme nts CYTOMEGALOVIRUS, IGG (BEAKER ) (test code = 3429) Negative Negative, Equivocal CMV IgG Result Interpretation: </= 0.8 Al Negative 0.9-1.0 Al Equivocal >/=1.1 Al PositiveRUBELLA ANTIBODY, [id number] 14:51:25* Test Item Value Reference Range Interpretation Comme nts RUBELLA IGG QUANTITATION (BE TACOS) (test code = 572) 217.0 IU/mL <8.0 H Rubella IgG Result Interpretation: </= 7.0 IU/mL Negative - Presumed non-immune 8.0 - 9.9 IU/mL Equivocal >= 10.0 IU/mL Positive - Presumed immuneXR mandible 4 views [id number] 14:46:01MANDIBLE 5 VIEWS HISTORY: Liver transplant evaluation [...] Signed By: Mabel Rahman01/25/2025 14:48 CDTWorkstation Name: [id number] Hospital Medical CenterXR mandible 4 views [id number] 14:46:01MANDIBLE 5 VIEWS HISTORY: Liver transplant evaluation COMPARISON: No comparison mandibular imaging FINDINGS: Tee, PA, bilateral oblique, and lateral images of the mandible wereobtained. No mandibular fracture is visualized. No bony destruction is visualizedin the mandible. No periapical abscess or dental caries are visualizedin the mandible. No air-fluid levels are visualized in the paranasal sinuses. Electronically Signed By: Mabel Rahman01/25/2025 14:48 CDTWorkstation Name: [id number] Hospital Medical CenterXR MANDIBLE 4 VIEWS [id number] 14:46:[address] [facility] [address] : 1970 Sex: FMANDIBLE 5 VIEWSHISTORY: Liver transplant evaluationCOMPARISON: No comparison mandibular imagingFINDINGS:Tee, PA, bilateral oblique, and lateral images of the mandible wereobtained.No mandibular fracture is visualized. No bony destruction is visualizedin the mandible. No periapical abscess or dental caries are visualizedin the mandible.No air-fluid levels are visualized in the paranasal sinuses.Electronically Signed By: Mabel Rahman01/25/2025 14:48 CDTWorkstation Name: [id number] MONITOR, PANEL 1, W/CONF, [id number] 04:18:48* Test Item Value Reference Range Interpretation Comme nts Amphetamines (test code = 26475-0) NEGATIVE <=500 Barbiturates (test code = 07515-3) NEGATIVE <=300 Benzodiazepines (test code = 75082-4) NEGATIVE <=100 Cocaine Metabolite (test code = 3393-6) NEGATIVE <=150 MARIJUANA METABOLITE (QUEST) (test code = 3426-4) NEGATIVE <=20 METHADONE METABOLITE (test code = 3773-9) NEGATIVE <=100 Opiates (test code = 20789-3) NEGATIVE <=100 Oxycodone (test code = 33536-9) NEGATIVE <=100 Phencyclidine (test code = 3936-2) NEGATIVE <=25 Creatinine (test code = 2160-0) 180 mg/dL See_Comment [Automated Meet My Friendsa Premise] The system which generated this result transmitted reference range: > or = 20.0. The reference range was not used to interpret this result as normal/abnormal. pH (test code = 2756-5) 6.1 4.5-9.0 Oxidant (test code = 66314-9) NEGATIVE See_Comment [Automated Meet My Friendsa ge] The system which generated this result transmitted reference range: <200 mcg/mL. The reference range was not used to interpret this result as normal/abnormal. BLANCA (test code = BLANCA) [id number] [facility] CenterNICOTINE METABOLITE [id number] 04:18:48* Test Item Value Reference Range Interpretation Comme [facility] NICOTINE SCREEN (test code = 205991200215) NONE DETECTED BLANCA (test code = BLANCA) [id number] [facility] CenterDRUG MONITORING [id number] 04:18:48NOTES AND COMMENTSQuest DiagnosticsSouth Texas Health System McAllenRPR2025-03-27 13:19:21* Test Item Value Reference Range Interpretation Comme nts RPR SCREEN ([place]ot [place]rees) (test co de = 420) Nonreactive Nonreactive EBV ANTIBODY, [id number] 08:26:44* Test Item Value Reference Range Interpretation Comme nts ARSLAN PINON VIRAL CAPSID ANTIGEN IGM ([place]) (test code = 3418) Negative Negative, Equivocal Arslan Pinon Viral Capsid Antigen IgM Result Interpretation: </= 0.8 Al Negative 0.9-1.0 Al Equivocal >/= 1.1 Al PositiveVARICELLA ZOSTER ANTIBODY, [id number] 08:26:44* Test Item Value Reference Range Interpretation Comme nts VARICELLA ZOSTER IGG (AL) (Lukas HERNANDEZ) (test code = 3197) 3.6 VARICELLA ZOSTER RESULT INTERPRETATIONS: <=0.8 Al Nonreactive: Presumed non- immune to VZV 0.9-1.0 Al Equivocal >=1.1 Al Reactive: Presumed immune to VZVEBV ANTIBODY, [id number] 08:26:43* Test Item Value Reference Range Interpretation Comme nts ARSLAN PINON VIRAL CAPSID ANTIGEN IGG (MANNY) (test code = 3415) Positive Negative, Equivocal A Arslan Pinon Viral Capsid Antigen IgG Result Interpretation: </= 0.8 Al Negative 0.9-1.0 Al Equivocal >/= 1.1 Al [id number] 18:13:23* Test Item Value Reference Range Interpretation Comme nts T3 TOTAL (MANNY) (test code = 656) 0.8 ng/mL 0.6-1.8 Fundraising Manager ID - TCAMACHOXR DXA BONE DENSITY [id number] 16:39:19 [facility] : 1970 Sex: FBone Mineral Density, 01/23/2025 3:15 PM.Clinical History: 54-year-old female, Osteoporosis ScreeningComparison: None available.Discussion: Evaluation of the left hip and lumbar spine was performedusing a Hologic Horizon W bone densitometer. The study is technicallyadequate. The patient's fracture risk is compared to the age matchedcontrol.Findings:Bone Mineral Density Measurement (BMD) -Lumbar Spine: 1.169 gm/su6Mepu Femoral Neck: 0.722 gm/vy1Wzjrvcwj Deviation as compared to the young adult [...] or more fragility fracturesElectronically Signed By: Waylon Victoria01/23/2025 16:41 CDTWorkstation Name: [id number] dxa bone density [id number] 16:39:19Bone Mineral Density, 01/23/2025 3:15 PM. Clinical History: 54-year-old female, Osteoporosis Screening Comparison: None available. Discussion: Evaluation of the left hip and lumbar spine was performedusing a Hologic Horizon W bone densitometer. The study is technicallyadequate. The patient's fracture risk is compared to the age matchedcontrol. Findings: Bone Mineral Density Measurement (BMD) -Lumbar Spine: 1.169 gm/hk7Giwx Femoral Neck: 0.722 gm/cm2 Standard Deviation as compared to the young adult population (T -score)-Lumbar Spine: 1.1 Left Femoral Neck: -1.1 Standard Deviation as compared to the age matched controls (Z-score)-Lumbar Spine: 2.2Left Femoral Neck: -0.1[facility] San DiegoXR dxa bone density [id number] 16:39:19Bone Mineral Density, 01/23/2025 3:15 PM. Clinical History: 54-year-old female, Osteoporosis Screening Comparison: None available. Discussion: Evaluation of the left hip and lumbar spine was performedusing a Hologic Horizon W bone densitometer. The study is technicallyadequate. The patient's fracture risk is compared to the age matchedcontrol. Findings: Bone Mineral Density Measurement (BMD) -Lumbar Spine: 1.169 gm/di2Nnxf Femoral Neck: 0.722 gm/cm2 Standard Deviation as compared to the young adult population (T -score)-Lumbar Spine: 1.1 Left Femoral Neck: -1.1 Standard Deviation as compared to the age matched controls (Z-score)-Lumbar Spine: 2.2Left Femoral Neck: -0.1 [facility] DiegoCRYPTOCOCCAL [id number] 16:07:25* Test Item Value Reference Range Interpretation Comme nts CRYPTOCOCCAL ANTIGEN, SERUM (MANNY) (test code = 1828) Negative Negative, Interference XR chest 2 [id number] 14:58:30Exam: XR CHEST 2 VIEWSDate: 01/23/2025 2:58 PM Indication:liver transplant evaluationComparison: [facility] [id number] 14:58:30Exam: XR CHEST 2 VIEWSDate: 01/23/2025 2:58 PM Indication:liver transplant evaluationComparison: [facility]XR CHEST 2 [id number] 14:58:30 [facility] : 1970 Sex: FExam: XR CHEST 2 VIEWSDate: 01/23/2025 2:58 PMIndication:liver transplant evaluationComparison: NoneIMPRESSION:Lines/Tubes:NoneLungs and Pleura :The lungs are well inflated. No focal consolidation orpulmonary edema. No pleural effusions. No pneumothorax.Heart/Mediastinum:The cardiomediastinal silhouette is normal in size andcontour.Bones/Soft Tissues: No acute osseous abnormality.Upper abdomen: Unremarkable.Electronically Signed By: Dayo Flowers01/23/2025 15:00 CDTWorkstation Name: [id number] 10:31:19* Test Item Value Reference Range Interpretation Comme nts HEMOGLOBIN A1C ELECTROPHORESIS (MANNY) (test code = 3811) 4.5 % See_Comment [Automated me ssage] The system which generated this result transmitted reference range: <=5.6%. The reference range was not used to interpret this result as normal/abnormal. "The A1c is measured using a [facility]-certified method. HbA1c value equal to or greater than 6.5% as the diagnosis cutoff for diabetes. An HbA1c value of 5.7- 6.4% indicates increased risk for diabetes (prediabetes)."Fundraising Manager ID - ADMPSA 2025-01-23 10:13:45* Test Item Value Reference Range Interpretation Comme nts PROSTATE SPECIFIC ANTIGEN (Lukas HERNANDEZ) (test code = 844) < ng/mL 0.0-4.0 [id number] 10:13:30* Test Item Value Reference Range Interpretation Comme nts T4 TOTAL (MANNY) (test code = 895) 6.8 ug/dL 4.9-11.7 [id number] 10:13:30* Test Item Value Reference Range Interpretation Comme nts THYROID STIMULATING HORMONE (MANNY) (test code = 772) 3.278 uIU/mL 0.350-4.940 [id number] 10:13:30* Test Item Value Reference Range Interpretation Comme nts TRANSFERRIN (MANNY) (test c ode = 541) 96 mg/dL 180-382 L Specimen moderately ictericHEPATITIS B CORE ANTIBODY, [id number] 10:13:30* Test Item Value Reference Range Interpretation Comme nts HEPATITIS B CORE IGM ANTIBOD Y (MANNY) (test code = 645) Nonreactive Nonreactive HIV-1 ANTIGEN WITH HIV-1/2 [id number] 10:13:30* Test Item Value Reference Range Interpretation Comme nts HIV-1 ANTIGEN WITH HIV 1\\T\\2 ANTIBODY (2) (MANNY) (test code = 2586) Nonreactive Nonreactive VITAMIN D, [id number] 10:09:25* Test Item Value Reference Range Interpretation Comme nts VITAMIN D 25-OH (BEAKER) (te st code = 2764) 11.9 ng/mL 6.6-49.9 Deficiency .......... <20 ng/mLInsufficiency ....... 20-29 ng/mLOptimal ............. 30-80 ng/mLPossible Toxicity ... >150 ng/mLGAMMA GLUTAMYL TRANSFERASE (GGT)2025-01-23 10:06:33* Test Item Value Reference Range Interpretation Comme nts GAMMA GLUTAMYL TRANSFERASE ( BEAKER) (test code = 364) 57 U/L <38 H BILIRUBIN, [id number] 10:06:33* Test Item Value Reference Range Interpretation Comme nts BILIRUBIN DIRECT (BEAKER) (t est code = 706) 3.9 mg/dL 0.1-0.5 H [id number] 10:06:28* Test Item Value Reference Range Interpretation Comme nts MAGNESIUM (BEAKER) (test cod e = 627) 2.0 mg/dL 1.6-2.6 URIC [id number] 10:06:23* Test Item Value Reference Range Interpretation Comme nts URIC ACID (BEAKER) (test cod e = 773) 5.2 mg/dL 2.5-6.2 COMPREHENSIVE METABOLIC [id number] 10:06:12* Test Item Value Reference Range Interpretation [...] is not applicable for dialysis patients LIPID [id number] 10:06:02* Test Item Value Reference Range Interpretation Comme nts TRIGLYCERIDES (BEAKER) (test code = 540) 87 mg/dL CHOLESTEROL (BEAKER) (test c ode = 631) 139 mg/dL HDL CHOLESTEROL (BEAKER) (te st code = 976) 31 mg/dL LDL CHOLESTEROL CALCULATED ( Snibbe StudioAKER) (test code = 633) 91 mg/dL Triglyceride Reference Range: Low Risk <150 Borderline 150-199 High Risk 200-499 Very High Risk >=500Cholesterol Reference Range: Low Risk <200 Borderline 200-239 High Risk >240HDL Cholesterol Reference Range: Low Risk >=60 High Risk <40LDL Cholesterol Reference Range: Optimal <100 Near Optimal 100-129 Borderline 130-159 High 160-189 Very High >=177XSJXVSOKQK1555-70-89 10:05:05* Test Item Value Reference Range Interpretation Comme nts PHOSPHORUS (BEAKER) (test co de = 604) 3.7 mg/dL 2.5-4.5 [id number] 10:02:09* Test Item Value Reference Range Interpretation Comme nts ETHANOL (BEAKER) (test code = 400) < mg/dL <=10 WTOKD-8-VYLUBPMFWHG9631-03-26 09:58:20* Test Item Value Reference Range Interpretation Comme nts ALPHA-1 ANTITRYPSIN (BEAKER) (test code = 502) 169.40 mg/dL 90.00-200.00 CALCIUM, [id number] 09:58:05* Test Item Value Reference Range Interpretation Comme nts CALCIUM IONIZED (BEAKER) (te st code = 698) 1.21 mmol/L 1.12-1.27 PH, BLOOD (BEAKER) (test cod e = 1810) 7.33 [id number] 09:38:53* Test Item Value Reference Range Interpretation Comme nts FIBRINOGEN LEVEL (BEAKER) (t est code = 658) 197 mg/dl 155-431 Fundraising Manager ID -PROTHROMBIN TIME/XRF3429-17-60 09:38:53* Test Item Value Reference Range Interpretation Comme nts PROTIME (BEAKER) (test code = 759) 17.3 seconds 9.9-12.7 H INR (BEAKER) (test code = 370) 1.54 See Comment RECOMMENDED COUMADIN/WARFARIN INR THERAPY RANGESSTANDARD DOSE: 2.0 - 3.0 Includes: PROPHYLAXIS for venous thrombosis, systemic embolization; TREATMENT for venous thrombosis and/or pulmonary embolus.HIGH RISK: Target INR is 2.5-3.5 for patients with mechanical heart valves.Fundraising Manager ID -[id number] 09:38:53* Test Item Value Reference Range Interpretation Comme nts PARTIAL THROMBOPLASTIN TIME (BEAKER) (test code = 760) 44.6 seconds 26.8-37.1 H Fundraising Manager ID -Urinalysis w/Jdyciechtua1279-88-67 09:35:04* Test Item Value Reference Range Interpretation Comme nts Color, UA (test code = 5778-6) Dark Yellow Clarity, UA (test code = 5767-9) Hazy Specific [place], UA (test code = 5811-5) 1.020 1.001-1.035 pH, UA (test code = 5803-2) 6.0 5.0-8.0 Protein, UA (test code = 08821-0) 20 mg/dL Negative A Glucose, UA (test code = 365) Negative Negative Ketones, UA (test code = 2514-8) Negative Negative Bilirubin, UA (test code = 03326-5) Positive Negative A Blood, UA (test code = 40805-1) Negative Negative Nitrite, UA (test code = 5802-4) Negative Negative Leukocytes, UA (test code = 5799-2) Negative Negative Urobilinogen, UA (test code = 34721-2) 12 0.2-1.0 H RBC, UA (test code = 38926-5) 1 See_Comment [Automated message] The system which [...] Rare Squam Epithel, UA (test code = 71189-6) 15 See_Comment [Automated message] The system which generated this result transmitted reference range: /HPF. The reference range was not used to interpret this result as normal/abnormal. Specimen Source (test code = 2795) Urine, Voided BLANCA (test code = BLANCA) Fundraising Manager ID - [auto]Fundraising Manager ID - tech Lab Interpretation (test code = 87841-6) [facility]normal [facility] Diego[facility]inalysis w/Hlblrmizvmz4889-75-37 09:35:04* Test Item Value Reference Range Interpretation Comme nts Color, UA (test code = 5778-6) Dark Yellow Clarity, UA (test code = 5767-9) Hazy Specific [place], UA (test code = 5811-5) 1.02 1.001-1.035 pH, UA (test code = 5803-2) 6 5.0-8.0 Protein, UA (test code = 12841-9) 20 mg/dL Negative A Glucose, UA (test code = 365) Negative Negative Ketones, UA (test code = 2514-8) Negative Negative Bilirubin, UA (test code = 73891-8) Positive Negative A Blood, UA (test code = 41881-9) Negative Negative Nitrite, UA (test code = 5802-4) Negative Negative Leukocytes, UA (test code = 5799-2) Negative Negative Urobilinogen, UA (test code = 24462-8) 12 0.2-1.0 H RBC, UA (test code = 10575-0) 1 See_Comment [Automated message] The system which [...] Rare Squam Epithel, UA (test code = 69693-7) 15 See_Comment [Automated message] The system which generated this result transmitted reference range: /HPF. The reference range was not used to interpret this result as normal/abnormal. Specimen Source (test code = 2795) Urine, Voided BLANCA (test code = BLANCA) Fundraising Manager ID - [auto]Fundraising Manager ID - tech Lab Interpretation (test code = 46534-3) Abnormal [facility]/ CMOUPDJILNC5934-50-88 09:35:04* Test Item Value Reference Range Interpretation [...] SOURCE(BEAKER) (test code = 2795) Urine, Voided Fundraising Manager ID - [auto]Fundraising Manager ID - techCBC W/PLT COUNT & [...] = 2801) 0.30 % 0.00-1.00 US ABDOMEN [id number] 09:44:44 [facility] : 1970 Sex: FTECHNIQUE: Grayscale ultrasound of the abdomen.INDICATION: ascites.COMPARISON: None. FINDINGS/IMPRESSION:Focused sonography was performed of all four abdominal quadrants toassess for ascites.No significant ascites seen.Electronically Signed By: Gustavo Ruvalcaba01/09/2025 09:46 CDTWorkstation Name: [id number] [id number] 20:01:03* Test Item Value Reference Range Interpretation Comme nts CULTURE (BEAKER) (test code = 1095) No growth in 5 days BLOOD UCJBUBY6855-56-30 20:01:03* Test Item Value Reference Range Interpretation Comme nts CULTURE (BEAKER) (test code = 1095) No growth in 5 days PROTHROMBIN TIME/[id number] 04:48:33* Test Item Value Reference Range Interpretation Comme nts PROTIME (BEAKER) (test code = 759) 22.4 seconds 9.9-12.7 H INR (BEAKER) (test code = 370) 2.01 See Comment RECOMMENDED COUMADIN/WARFARIN INR THERAPY RANGESSTANDARD DOSE: 2.0 - 3.0 Includes: PROPHYLAXIS for venous thrombosis, systemic embolization; TREATMENT for venous thrombosis and/or pulmonary embolus.HIGH RISK: Target INR is 2.5-3.5 for patients with mechanical heart valves.Fundraising Manager ID -COMPREHENSIVE METABOLIC NOAYC8015-14-37 04:44:53* Test Item Value Reference Range Interpretation [...] exception of and prior to urologic procedures. [facility] CenterUrine Ohgmgad7892-91-71 09:49:04* Test Item Value Reference Range Interpretation Comme nts Result (test code = 6463-4) 10-19,000 col/mL skin jonathan BLANCA (test code = BLANCA) If your patient does not have signs or symptoms of UTI, it is recommended NOT to treat, with the exception of and prior to urologic procedures. [facility] CenterIMMUNOGLOBULIN G (IGG)2024-12-27 05:06:36* Test Item Value Reference Range Interpretation Comme nts IMMUNOGLOBULIN G (IGG) (BEAK ER) (test code = 427) 1977 mg/dL 552-1631 H COMPREHENSIVE METABOLIC [id number] 04:53:34* Test Item Value Reference Range Interpretation [...] applicable for dialysis patients Specimen markedly ictericPROTHROMBIN TIME/[id number] 04:51:56* Test Item Value Reference Range Interpretation Comme nts PROTIME (BEAKER) (test code = 759) 22.1 seconds 9.9-12.7 H INR (BEAKER) (test code = 370) 1.98 See Comment RECOMMENDED COUMADIN/WARFARIN INR THERAPY RANGESSTANDARD DOSE: 2.0 - 3.0 Includes: PROPHYLAXIS for venous thrombosis, systemic embolization; TREATMENT for venous thrombosis and/or pulmonary embolus.HIGH RISK: Target INR is 2.5-3.5 for patients with mechanical heart valves.Fundraising Manager ID -CBC (HEMOGRAM ONLY) 2024-12-27 04:38:41* [...] 413) 0 /100 WBC 0-0 US ABDOMEN [id number] 09:44:[address] [facility] 1970 Sex: FTECHNIQUE: Grayscale ultrasound of the right abdomen.INDICATION: ABDOMINAL PAINASCIT ES.COMPARISON: CT from 12/25/2024.FINDINGS/IMPRESSION:Small volume ascites in the right upper quadrant, right lower quadrant,and midline pelvisElectronically Signed By: Tay Funes12/26/2024 09:46 CDTWorkstation Name: [id number] abdomen jxsyego4308-86-88 09:44:42TECHNIQUE: Grayscale ultrasound of the right abdomen. INDICATION: ABDOMINAL PAINASCITES. COMPARISON: CT from 12/25/2024. FINDINGS/[facility] DiegoXiybrtRERXLEQKC7104-86-12 04:56:46* Test Item Value Reference Range Interpretation Comme nts MAGNESIUM (BEAKER) (test code = 627) 1.8 mg/dL 1.6-2.6 Specimen sligh tly hemolyzed [id number] 04:56:46* Test Item Value Reference Range Interpretation Comme nts PHOSPHORUS (BEAKER) (test code = 604) 3.4 mg/dL 2.3-4.7 Specimen sligh tly hemolyzed BASIC METABOLIC [id number] 04:56:46* Test Item Value Reference Range Interpretation [...] for dialysis patients Specimen markedly ictericHEPATIC FUNCTION FABEK0599-88-95 04:56:46* Test Item Value Reference Range Interpretation [...] Specimen sligh tly hemolyzed Specimen markedly ictericPROTHROMBIN TIME/[id number] 04:54:01* Test Item Value Reference Range Interpretation Comme nts PROTIME (BEAKER) (test code = 759) 22.9 seconds 9.9-12.7 H INR (BEAKER) (test code = 370) 2.06 See Comment RECOMMENDED COUMADIN/WARFARIN INR THERAPY RANGESSTANDARD DOSE: 2.0 - 3.0 Includes: PROPHYLAXIS for venous thrombosis, systemic embolization; TREATMENT for venous thrombosis and/or pulmonary embolus.HIGH RISK: Target INR is 2.5-3.5 for patients with mechanical heart valves.Fundraising Manager ID -CBC W/PLT COUNT & AUTO NTXEQTNWQONI9723-99-15 04:36:32* Test Item Value Reference Range Interpretation [...] 0.00-1.00 CT ABDOMEN/PELVIS WITH IV CONTRAST Standard Xiusljqh7267-63-11 00:08:00 TECHNIQUE: CT of the abdomen and pelvis WITH intravenous contrast andWITHOUT oral contrast. Dose modulation, iterative reconstruction, and/orweight-based adjustment of the mA/kV was utilized to reduce theradiation dose to as low as reasonably achievable. INDICATION: Unlisted Reason for Rgfm27-ydmm-mef female with history of decompensated cirrhosis, prior [...] TISSUES: No acute osseous abnormality. Soft tissues areunremarkable.[facility] CenterCT ABDOMEN/PELVIS WITH IV PFNILYVA5633-29-52 00:08:00 [facility] : 1970 Sex: FTECHNIQUE: CT of the abdomen and pelvis WITH intravenous contrast andWITHOUT oral contrast. Dose modulation, iterative reconstruction, and/orweight-based adjustment of the mA/kV was utilized to reduce theradiation dose to as low as reasonably achievable.INDICATION: Unlisted Reason for Ybnp61-aozc-ajw female with history of decompensated cirrhosis, prior [...] By: Magdaleno Putnam MD12/26/2024 00:11 CDTWorkstation Name: [id number] METABOLIC [id number] 19:53:29 * Test Item Value Reference Range [...] not applicable for dialysis patients Specimen markedly iqetwvqKZFQMO8133-84-27 19:53:29* Test Item Value Reference Range Interpretation Comme nts LIPASE (BEAKER) (test code = 749) 19 U/L <=60 Specimen markedly ictericPROTHROMBIN TIME/[id number] 19:51:06* Test Item Value Reference Range Interpretation Comme nts PROTIME (BEAKER) (test code = 759) 19.7 seconds 9.9-12.7 H INR (BEAKER) (test code = 370) 1.76 See Comment RECOMMENDED COUMADIN/WARFARIN INR THERAPY RANGESSTANDARD DOSE: 2.0 - 3.0 Includes: PROPHYLAXIS for venous thrombosis, systemic embolization; TREATMENT for venous thrombosis and/or pulmonary embolus.HIGH RISK: Target INR is 2.5-3.5 for patients with mechanical heart valves.Fundraising Manager ID -XMJJ5261-21-49 19:51:06* Test Item Value Reference Range Interpretation Comme nts PARTIAL THROMBOPLASTIN TIME (BEAKER) (test code = 760) 46.1 seconds 26.8-37.1 H Fundraising Manager ID -Urinalysis w/Microscopic + Reflex to Gunrxrr5781-01-20 19:38:23* Test Item Value Reference Range Interpretation Comme nts Color, UA (test code = 5778-6) Dark Yellow Clarity, UA (test code = 5767-9) Hazy Specific [place], UA (test code = 5811-5) 1.022 1.001-1.035 pH, UA (test code = 5803-2) 6 5.0-8.0 Protein, UA (test code = 64936-6) 30 mg/dL Negative A Glucose, UA (test code = 365) Negative Negative Ketones, UA (test code = 2514-8) Negative Negative Bilirubin, UA (test code = 78567-0) Positive Negative A Blood, UA (test code = 71959-5) Negative Negative Nitrite, UA (test code = 5802-4) Negative Negative Leukocytes, UA (test code = 5799-2) Negative Negative Urobilinogen, UA (test code = 28806-4) 8 0.2-1.0 H RBC, UA (test code = 92280-9) 12 See_Comment [Automated message] The system which generated this result transmitted reference range: /HPF. The reference range was not used to interpret this result as normal/abnormal. WBC, UA (test code = 5821-4) 13 See_Comment [Automated message] The system which generated this result transmitted reference range: /HPF. The reference range was not used to interpret this result as normal/abnormal. Bacteria, UA (test code = 04397-5) Occasional Mucus (test code = 8247-9) Few Squam Epithel, UA (test code = 88921-2) 11 See_Comment [Automated message] The system which generated this result transmitted reference range: /HPF. The reference range was not used to interpret this result as normal/abnormal. Hyaline Casts, UA (test code = 88312-5) 1 See_Comment [Automated message] The system which generated this result transmitted reference range: /LPF. The reference range was not used to interpret this result as normal/abnormal. Yeast (test code = 34572-2) Occasional Specimen Source (test code = 2795) BLANCA (test code = BLANCA) Fundraising Manager ID - [auto]Fundraising Manager ID - tech Lab Interpretation (test code = 34902-5) Abnormal [facility] CenterURINALYSIS W/ REFLEX URINE [id number] 19:38:23 * Test Item Value Reference Range [...] 1585) Occasional SOURCE(BEAKER) (test code = 2795) Fundraising Manager ID - [auto]Fundraising Manager ID - techLACTIC ACID, FMYXYM0760-80-24 19:33:03* Test Item Value Reference Range Interpretation Comme nts LACTATE BLOOD VENOUS (2) (BEAKER) (test code = 2872) 1.41 mmol/L 0.50-2.00 Specimen slightl y hemolyzed Specimen markedly ictericCBC W/PLT COUNT & AUTO UJDMSVZKKLMX4484-87-26 19:25:57 * Test Item Value Reference Range [...] code = 2801) 0.60 % 0.00-1.00 BLOOD [id number] 20:01:09* Test Item Value Reference Range Interpretation Comme nts CULTURE (BEAKER) (test code = 1095) No growth in 5 days The specimen volume collected for this blood culture was below the optimum (10 mL per bottle or 20 mL total). Use of lower volumes may adversely affect recovery and/or detection times of some organisms.BLOOD [id number] 20:01:09* Test Item Value Reference Range Interpretation Comme nts CULTURE (BEAKER) (test code = 1095) No growth in 5 days The specimen volume collected for this blood culture was below the optimum (10 mL per bottle or 20 mL total). Use of lower volumes may adversely affect recovery and/or detection times of some organisms.US ABDOMEN [id number] 19:52:56[facility] : 1970 Sex: F EXAM: Limited abdominal ultrasoundINDICATION: abdominal distention, ascitesCOMPARISON: None. TECHNIQUE: Casarez scale sonographic evaluation of the four quadrants ofthe abdomen was perfo rmed.FINDINGS/IMPRESSION:Minimal trace ascites, insufficient for paracentesis to be safe or ofmeaningful therapeutic benefit.Electronically Signed By: Alejo Cordoba12/22/2024 19:55 CDTWorkstation Name: [id number] METABOLIC [id number] 08:10:26* Test Item Value Reference Range Interpretation [...] for dialysis patients Specimen markedly ictericHEPATIC FUNCTION OQDQG3746-05-70 08:10:26* Test Item Value Reference Range Interpretation [...] 347) 39 U/L <55 Specimen markedly ictericPROTHROMBIN TIME/MXS8757-23-06 08:07:07* Test Item Value Reference Range Interpretation Comme nts PROTIME (BEAKER) (test code = 759) 23.2 seconds 9.9-12.7 H INR (BEAKER) (test code = 370) 2.08 See Comment RECOMMENDED COUMADIN/WARFARIN INR THERAPY RANGESSTANDARD DOSE: 2.0 - 3.0 Includes: PROPHYLAXIS for venous thrombosis, systemic embolization; TREATMENT for venous thrombosis and/or pulmonary embolus.HIGH RISK: Target INR is 2.5-3.5 for patients with mechanical heart valves.Fundraising Manager ID -CBC W/PLT COUNT & AUTO KYEKXLCWBFFX2665-01-46 07:51:44* Test Item Value Reference Range Interpretation [...] 0.00-1.00 XR abdomen / KUB 1 view sywiiptg3932-98-54 07:48:17XR ABDOMEN/KUB 1 VIEW PORTABLE CLINICAL INDICATION: r/o constipation ileus COMPARISON: None TECHNIQUE: Single, frontal radiograph of the abdomen. FINDINGS: The bowel gas pattern is nonspecific, but nonobstructive. Evaluation for free air is limited by portable supine technique. Withinthese limitations, no free air is identified. Electronically Signed By: Yaquelin Cooney12/21/2024 07:50 CDTWorkstation Name: [id number] [facility] DiegoXR abdomen / KUB 1 view ukdyspal1855-01-30 07:48:17XR ABDOMEN/KUB 1 VIEW PORTABLE CLINICAL INDICATION: r/o constipation ileus COMPARISON: None TECHNIQUE: Single, frontal radiograph of the abdomen. FINDINGS: The bowel gas pattern is nonspecific, but nonobstructive. Evaluation for free air is limited by portable supine technique. Withinthese limitations, no free air is identified. Electronically Signed By: Yaquelin Cooney12/21/2024 07:50 CDTWorkstation Name: [id number] [facility] DiegoXR ABDOMEN/KUB 1 VIEW [id number] 07:48:17 [facility] : 1970 Sex: FXR ABDOMEN/KUB 1 VIEW PORTABLECLINICAL INDICATION: r/o constipation ileus COMPARISON: NoneTECHNIQUE: Single, frontal radiograph of the abdomen.FINDINGS: The bowel gas pattern is nonspecific, but nonobstructive.Evaluation for free air is limited by portable supine technique. Withinthese limitations, no free air is identified. Electronically Signed By: Yaquelin Cooney12/21/2024 07:50 CDTWorkstation Name: [id number] FUNCTION [id number] 05:29:46* Test Item Value Reference Range Interpretation [...] 37 U/L <55 Specimen markedly ictericBASIC METABOLIC LEFQG6776-30-52 05:26:20* Test Item Value Reference Range Interpretation [...] applicable for dialysis patients Specimen markedly ictericPROTHROMBIN TIME/[id number] 05:05:10* Test Item Value Reference Range Interpretation Comme nts PROTIME (BEAKER) (test code = 759) 24.0 seconds 9.9-12.7 H INR (BEAKER) (test code = 370) 2.16 See Comment RECOMMENDED COUMADIN/WARFARIN INR THERAPY RANGESSTANDARD DOSE: 2.0 - 3.0 Includes: PROPHYLAXIS for venous thrombosis, systemic embolization; TREATMENT for venous thrombosis and/or pulmonary embolus.HIGH RISK: Target INR is 2.5-3.5 for patients with mechanical heart valves.Fundraising Manager ID -CBC W/PLT COUNT & AUTO FLVRUURGEVRI9286-19-12 04:48:22* Test Item Value Reference Range Interpretation [...] = 2801) 0.70 % 0.00-1.00 US ABDOMEN [id number] 22:59:29 [facility] : 1970 Sex: FEXAM: Limited abdominal ultrasoundINDICATION: therapeutic paracentesisCOMPARISON: None. TECHNIQUE: Casarez scale sonographic evaluation of the four quadrants ofthe abdomen was performed.FINDINGS/IMPRESSION:Small volume ascites, insufficient for paracentesis to be of meaningfultherapeutic benefit.Electronically Signed By: Alejo Cordoba12/19/2024 23:01 CDTWorkstation Name: [id number] with Microscopic If Yqkkvetwl3278-12-75 17:47:31* Test Item Value Reference Range Interpretation Comme nts Color, UA (test code = 5778-6) Dark Yellow Clarity, UA (test code = 5767-9) Hazy Specific [place], UA (test code = 5811-5) 1.009 1.001-1.035 pH, UA (test code = 5803-2) 6.5 5.0-8.0 Protein, UA (test code = 28810-6) Negative Negative Glucose, UA (test code = 365) Negative Negative Ketones, UA (test code = 2514-8) Negative Negative Bilirubin, UA (test code = 38399-8) Positive Negative A Blood, UA (test code = 09915-4) Negative Negative Nitrite, UA (test code = 5802-4) Negative Negative Leukocytes, UA (test code = 5799-2) Negative Negative Urobilinogen, UA (test code = 59380-3) 6 0.2-1.0 H Specimen Source (test code = 2795) BLANCA (test code = BLANAC) Fundraising Manager ID - [auto] Lab Interpretation (test code = 76115-8) Abnormal [facility] CenterURINALYSIS WITH MICROSCOPIC IF [id number] 17:47:31* Test Item Value Reference Range Interpretation [...] 0.2-1.0 H SOURCE(BEAKER) (test code = 2795) Fundraising Manager ID - [auto]XR chest 2 wlppq0189-09-28 15:41:08Chest, 2 views, 12/19/2024 2:16 PM. History: c/f infection. Comparison: None available. Discussion: The cardiomediastinal silhouette and pulmonary vasculatureare within normal limits. The lungs are clear without evidence ofconsolidation or effusion. Degenerative changes are present in thethoracic spine. There are no acute osseous abnormalities. The softtissues are unremarkable.[facility] CenterXR CHEST 2 [id number] 15:41:08 [facility] : 1970 Sex: FChest, 2 views, 12/19/2024 2:16 PM.History: c/f infection.Comparison: None available.Discussion: The cardiomediastinal silhouette and pulmonary vasculatureare within normal limits. Thelungs are clear without evidence ofconsolidation or effusion. Degenerative changes are present in thethoracic spine. There are no acute osseous abnormalities. The softtissues are unremarkable.IMPRESSION:No acute cardiopulmonary abnormality.Electronically Signed By: Waylon Green12/19/2024 15:43 CDTWorkstation Name: [id number] [id number] 14:02:29* Test Item Value Reference Range Interpretation Comme nts HEMOGLOBIN A1C ELECTROPHORESIS (BEAKER) (test code = 3811) < % See_Comment [...] 5.7- 6.4% indicates increased risk for diabetes (prediabetes)."Fundraising Manager ID - ADMOperator ID - ADMHEPATIC FUNCTION [id number] 04:47:59* Test Item Value Reference Range Interpretation [...] 347) 36 U/L <55 Specimen markedly ictericLIPID [id number] 04:47:59* Test Item Value Reference Range Interpretation [...] 160-189 Very High >=190 Specimen markedly icteric SKWQTMKDR7523-96-00 04:47:13* Test Item Value Reference Range Interpretation Comme nts MAGNESIUM (BEAKER) (test cod e = 627) 2.0 mg/dL 1.6-2.6 VNMHNSNBQI2826-01-62 04:47:13* Test Item Value Reference Range Interpretation Comme nts PHOSPHORUS (BEAKER) (test co de = 604) 3.1 mg/dL 2.3-4.7 BASIC METABOLIC [id number] 04:47:13* Test Item Value Reference Range Interpretation [...] applicable for dialysis patients Specimen markedly ictericPROTHROMBIN TIME/[id number] 04:35:59* Test Item Value Reference Range Interpretation Comme nts PROTIME (BEAKER) (test code = 759) 24.1 seconds 9.9-12.7 H INR (BEAKER) (test code = 370) 2.17 See Comment RECOMMENDED COUMADIN/WARFARIN INR THERAPY RANGESSTANDARD DOSE: 2.0 - 3.0 Includes: PROPHYLAXIS for venous thrombosis, systemic embolization; TREATMENT for venous thrombosis and/or pulmonary embolus.HIGH RISK: Target INR is 2.5-3.5 for patients with mechanical heart valves.Fundraising Manager ID -CBC W/PLT COUNT & AUTO SMQSWNWIEMGZ5922-21-91 04:25:35* Test Item Value Reference Range Interpretation [...] 17.5 % 11.7-14.4 H PLATELET COUNT (BEAKER) (troy [...] = 2801) 1.00 % 0.00-1.00 US ABDOMEN [id number] 22:49:28 [facility] : 1970 Sex: FTECHNIQUE: [...] Signed By: Jair Xavier12/18/2024 22:51 CDTWorkstation Name: [id number] 20:22:31* Test Item Value Reference Range Interpretation Comme nts LIPASE (BEAKER) (test code = 749) 16 U/L <=60 Specimen markedly ictericLACTIC ACID, [id number] 19:55:44* Test Item Value Reference Range Interpretation Comme nts LACTATE BLOOD VENOUS (2) (BEAKER) (test code = 2872) 1.06 mmol/L 0.50-2.00 Specimen moderat trish hemolyzed Specimen markedly quwfftiXMNM7120-34-38 19:27:24* Test Item Value Reference Range Interpretation Comme nts PARTIAL THROMBOPLASTIN TIME (BEAKER) (test code = 760) 47.0 seconds 26.8-37.1 H Pre-analytical evaluation of the specimen suggests possible interference due to bilirubin (icterus). Results should be interpreted with caution. A redraw is recommended as clinically indicated. Fundraising Manager ID -PROTHROMBIN TIME/[id number] 19:27:18* Test Item Value Reference Range Interpretation Comme nts PROTIME (BEAKER) (test code = 759) 22.3 seconds 9.9-12.7 H INR (BEAKER) (test code = 370) 2.00 See Comment RECOMMENDED COUMADIN/WARFARIN INR THERAPY RANGESSTANDARD DOSE: 2.0 - 3.0 Includes: PROPHYLAXIS for venous thrombosis, systemic embolization; TREATMENT for venous thrombosis and/or pulmonary embolus.HIGH RISK: Target INR is 2.5-3.5 for patients with mechanical heart valves.Fundraising Manager ID -COMPREHENSIVE METABOLIC [id number] 19:13:55* Test Item Value Reference Range Interpretation [...] Specimen markedly ictericCBC W/PLT COUNT & AUTO [id number] 18:49:37 * Test Item Value Reference Range [...] = 2801) 0.90 % 0.00-1.00 HEPATIC FUNCTION [id number] 10:15:36* Test Item Value Reference Range Interpretation [...] 347) 36 U/L <55 Specimen markedly ictericPROTHROMBIN TIME/[id number] 10:10:50* Test Item Value Reference Range Interpretation Comme nts PROTIME (BEAKER) (test code = 759) 22.5 seconds 9.9-12.7 H INR (BEAKER) (test code = 370) 2.02 See Comment RECOMMENDED COUMADIN/WARFARIN INR THERAPY RANGESSTANDARD DOSE: 2.0 - 3.0 Includes: PROPHYLAXIS for venous thrombosis, systemic embolization; TREATMENT for venous thrombosis and/or pulmonary embolus.HIGH RISK: Target INR is 2.5-3.5 for patients with mechanical heart valves.Fundraising Manager ID -CBC W/PLT COUNT & AUTO [id number] 09:53:38* Test Item Value Reference Range Interpretation [...] % 0.00-1.00 Body fluid culture + gram thpkv6995-20-06 08:03:27* Test Item Value Reference Range Interpretation Comme nts Result (test code = 6463-4) No growth Lab Interpretation (test cod e = 99069-1) [facility] + gram bncfu6863-04-01 08:03:27* Test Item Value Reference Range Interpretation Comme nts Result (test code = 6463-4) No growth Lab Interpretation (test cod e = 32019-4) Normal [facility] CenterB[facility] FLUID CULTURE + GRAM [id number] 08:03:27* Test Item Value Reference Range Interpretation Comme nts CULTURE (BEAKER) (test code = 1095) No growth BRISSA TITER AND [id number] 15:13:59* Test Item Value Reference Range Interpretation [...] Negative Negative Test performed by IFA method.US zxefmvjwtfsg1881-31-82 22:29:23PROCEDURE: Ultrasound-guided paracentesis Procedural PersonnelAttending physician(s): Gege Brown practice provider(s): FAITH Valentino Pre-procedure diagnosis: AscitesPost-procedure diagnosis: UnchangedIndication: Ascites with pain or pressure symptomsAdditional clinical history: None Complications: No immediate complications.[facility] CenterUS ehgcbnshaeev0865-37-87 22:29:23PROCEDURE: Ultrasound-guided paracentesis Procedural PersonnelAttending physician(s): Gege Brown practice provider(s): FAITH Valentino Pre-procedure diagnosis: AscitesPost-procedure diagnosis: UnchangedIndication: Ascites with pain or pressure symptomsAdditional clinical history: None Complications: No immediate complications.[facility] CenterUS [id number] 22:29:23 [facility] : 1970 Sex: FPROCEDURE: Ultrasound-guided paracentesisProcedural PersonnelAttending physician(s): Alejo Cordoba MDAdvyaneli practice provider(s): Cristóbal Valentino-procedure diagnosis: AscitesPost-procedure diagnosis: UnchangedIndication: Ascites with pain or pressure symptomsAdditional clinical history: NoneComplications: No immediate complications.IMPRESSION:Ultrasound-guided paracentesis with drainage of 550 mL of clear yellowfluid.Plan: Resume care by clinical team. PROCEDURE SUMMARY:- Limited abdominal ultrasound- Ultrasound-guided paracentesis (CPT 29486)- Additional procedure(s): NonePROCEDURE DETAILS:Pre-procedureConsent: Informed consent for [...] Signed By: Alejo Cordoba12/13/2024 22:31 CDTWorkstation Name: [id number] METABOLIC [id number] 05:45:41* Test Item Value Reference Range Interpretation [...] for dialysis patients Specimen markedly ictericHEPATIC FUNCTION [id number] 05:45:30* Test Item Value Reference Range Interpretation [...] 347) 37 U/L <55 Specimen markedly ictericPROTHROMBIN TIME/[id number] 05:24:23* Test Item Value Reference Range Interpretation Comme nts PROTIME (BEAKER) (test code = 759) 23.9 seconds 9.9-12.7 H INR (BEAKER) (test code = 370) 2.15 See Comment RECOMMENDED COUMADIN/WARFARIN INR THERAPY RANGESSTANDARD DOSE: 2.0 - 3.0 Includes: PROPHYLAXIS for venous thrombosis, systemic embolization; TREATMENT for venous thrombosis and/or pulmonary embolus.HIGH RISK: Target INR is 2.5-3.5 for patients with mechanical heart valves.Fundraising Manager ID -CBC (HEMOGRAM ONLY) 2024-12-13 05:09:10* [...] 19.6 % 11.7-14.4 H PLATELET COUNT (BEAKER) (tory t code = 756) 175 K/CU MM 150-450 MEAN PLATELET VOLUME (BEAKER ) (test code = 754) 9.9 fL 9.4-12.3 NUCLEATED RED BLOOD CELLS (BEAKER) (test code = 413) 0 /100 WBC 0-0 Body fluid cell count with fxhxhxyajfsj9625-36-02 21:37:35* Test Item Value Reference Range Interpretation Comme nts Appearance (test code = 9335-1) Clear Clear Color (test code = 6824-7) Yellow Colorless, Straw A RBCs (test code = 65352-9) 19 See_Comment H [Automated message] The system [...] normal/abnormal. Adjusted WBC Count (test code = 79990-5) 281 See_Comment H [Automated message] The system which generated this result transmitted reference range: <=5 /cu mm. The reference range was not used to interpret this result as normal/abnormal. Adjusted lining cells/Others (test code = 05311-4) 0 See_Comment [Automated message] The system which generated this result transmitted reference range: <=1 /cu mm. The reference range was not used to interpret this result as normal/abnormal. % Segs (test code = 66998-2) 1 % % Lymphs (test code = 32402-8) 63 % % Monos (test code = 91617-4) 36 % % Eos (test code = 89663-6) 0 % % Baso (test code = 99046-8) 0 % Container Body Fluid (test code = 2873) Sterile Vial Lab Interpretation (test code = 99970-0) Abnormal [facility] cell count with cpautwirorvo1368-82-26 21:37:35* Test Item Value Reference Range Interpretation Comme nts Appearance (test code = 9335-1) Clear Clear Color (test code = 6824-7) Yellow Colorless, Straw A RBCs (test code = 95549-0) 19 See_Comment H [Automated message] The system [...] normal/abnormal. Adjusted WBC Count (test code = 75492-0) 281 See_Comment H [Automated message] The system which generated this result transmitted reference range: <=5 /cu mm. The reference range was not used to interpret this result as normal/abnormal. Adjusted lining cells/Others (test code = 43717-5) 0 See_Comment [Automated message] The system which generated this result transmitted reference range: <=1 /cu mm. The reference range was not used to interpret this result as normal/abnormal. % Segs (test code = 18614-6) 1 % % Lymphs (test code = 32245-6) 63 % % Monos (test code = 28449-8) 36 % % Eos (test code = 22706-5) 0 % % Baso (test code = 11579-3) 0 % Container Body Fluid (test code = 2873) Sterile Vial Lab Interpretation (test code = 09230-7) Abnormal [facility] CenterBODY FLUID CELL COUNT WITH [id number] 21:37:35* Test Item Value Reference Range Interpretation [...] code = 2873) Sterile Vial Albumin, body ciqfc2984-62-56 17:35:48* Test Item Value Reference Range Interpretation Comme nts Albumin, Fluid (test code = 1747-5) 0.5 gm/dL BLANCA (test code = BLANCA) This test has been modified from the [employer]'s instructions and its performance characteristics were determined by [facility]. The laboratory is regulated under CLIA as qualified to perform high-complexity testing. This test has not been cleared or approved by the U.S. Food and Drug Administration. The reference intervals and other method performance specifications are unavailable for this test. It is recommended to interpret body fluid concentrations in comparison with the corresponding serum or plasma concentrations. [facility] CenterAlbumin, body ylsqo0574-95-04 17:35:48* Test Item Value Reference Range Interpretation Comme nts Albumin, Fluid (test code = 1747-5) 0.5 gm/dL BLANCA (test code = BLANCA) This test has been modified from the [employer]'s instructions and its performance characteristics were determined by [facility]. The laboratory is regulated under CLIA as qualified to perform high-complexity testing. This test has not been cleared or approved by the U.S. Food and Drug Administration. The reference intervals and other method performance specifications are unavailable for this test. It is recommended to interpret body fluid concentrations in comparison with the corresponding serum or plasma concentrations. [facility] CenterALBUMIN, BODY [id number] 17:35:48* Test Item Value Reference Range Interpretation Comme nts ALBUMIN FLUID (BEAKER) (test code = 501) 0.5 gm/dL This test has been modified from the [employer]'s instructions and its performance characteristics were determined by [facility]. The laboratory is regulated under CLIA as qualified to perform high-complexity testing. This test has not been cleared or approved by the U.S. Food and Drug Administration. The reference intervals and other method performance specifications are unavailable for this test. It is recommended to interpret body fluid concentrations in comparison with the corresponding serum or plasma concentrations.MR abdomen without & with IV hgwwsemu5334-08-71 07:57:23CLINICAL INFORMATION: Unlisted Reason for Exam. TECHNIQUE: [...] vessels: Normal. Body wall: Normal. Skeletal structures: Normal.[facility] abdomen without & with IV fkpacjxh0124-91-99 07:57:23 CLINICAL INFORMATION: Unlisted Reason for Exam. TECHNIQUE: Multiple, [...] vessels: Normal. Body wall: Normal. Skeletal structures: Normal.[facility] CenterMR ABDOMEN WITH & WITHOUT IV [id number] 07:57:23 [facility] : 1970 Sex: FCLINICAL [...] Signed By: Jonathan Shine12/12/2024 07:59 CDTWorkstation Name: [id number] METABOLIC [id number] 05:55:22* Test Item Value Reference Range Interpretation [...] applicable for dialysis patients Specimen markedly ictericPROTHROMBIN TIME/[id number] 05:32:10* Test Item Value Reference Range Interpretation Comme nts PROTIME (BEAKER) (test code = 759) 26.0 seconds 9.9-12.7 H INR (BEAKER) (test code = 370) 2.34 See Comment RECOMMENDED COUMADIN/WARFARIN INR THERAPY RANGESSTANDARD DOSE: 2.0 - 3.0 Includes: PROPHYLAXIS for venous thrombosis, systemic embolization; TREATMENT for venous thrombosis and/or pulmonary embolus.HIGH RISK: Target INR is 2.5-3.5 for patients with mechanical heart valves.Fundraising Manager ID -CBC (HEMOGRAM ONLY) 2024-12-12 05:16:54* [...] code = 413) 0 /100 WBC 0-0 [id number] 05:34:03* Test Item Value Reference Range Interpretation [...] = 2590) 135 % 20-55 H PROTHROMBIN TIME/[id number] 05:28:36* Test Item Value Reference Range Interpretation Comme nts PROTIME (BEAKER) (test code = 759) 24.9 seconds 9.9-12.7 H INR (BEAKER) (test code = 370) 2.24 See Comment RECOMMENDED COUMADIN/WARFARIN INR THERAPY RANGESSTANDARD DOSE: 2.0 - 3.0 Includes: PROPHYLAXIS for venous thrombosis, systemic embolization; TREATMENT for venous thrombosis and/or pulmonary embolus.HIGH RISK: Target INR is 2.5-3.5 for patients with mechanical heart valves.Fundraising Manager ID -COMPREHENSIVE METABOLIC [id number] 05:15:06* Test Item Value Reference Range Interpretation [...] applicable for dialysis patients Specimen markedly ictericBILIRUBIN, [id number] 05:15:06* Test Item Value Reference Range Interpretation [...] 0 /100 WBC 0-0 Rapid drug screen, [id number] 11:56:10* Test Item Value Reference Range Interpretation Comme nts Barbiturate Screen (test code = 91257-2) Negative Negative Benzodiazepine Screen (test code = 00797-1) Negative Negative Cocaine (Metab.) Screen (test code = 26052-2) Negative Negative Methadone Screen (test code = 08191-2) Negative Negative Opiate Screen (test code = 47573-7) Positive Negative A Cannabinoid Screen (test code = 26170-5) Negative Negative Amph/Methamph Screen (test code = 23024-0) Negative Negative Phencyclidine Screen (test code = 62817-3) Negative Negative pH, UA (test code = 5803-2) 6.5 5.0-8.0 BLANCA (test code = BLANCA) DRUG CUTOFF CONC.Cocaine 300 ng/mL Cannabinoid 50 ng/mLBenzodiazepine 200 ng/mLBarbiturate 200 ng/mLPhencyclidine 25 ng/mLOpiate 300 ng/mLMethadone 300 ng/mLAmphetamine/ 1000 ng/mL Methamphetamine This assay provides an unconfirmed qualitative test result for the clinical management of patients in emergency situations. Chain of custody not maintained. Some ugqn-ihe-samwonq medications, as well as adulterants, may cause inaccurate results. Clinical correlation should be applied. A more comprehensive drug screen or confirmation of a detected drug may be performed upon request.Fundraising Manager ID - [auto] Lab Interpretation (test code = 00310-0) Abnormal [facility] DiegoRapid drug screen, [id number] 11:56:10* Test Item Value Reference Range Interpretation Comme nts Barbiturate Screen (test code = 02310-8) Negative Negative Benzodiazepine Screen (test code = 79240-0) Negative Negative Cocaine (Metab.) Screen (test code = 31695-2) Negative Negative Methadone Screen (test code = 34739-9) Negative Negative Opiate Screen (test code = 72655-6) Positive Negative A Cannabinoid Screen (test code = 88077-4) Negative Negative Amph/Methamph Screen (test code = 04816-2) Negative Negative Phencyclidine Screen (test code = 15949-0) Negative Negative pH, UA (test code = 5803-2) 6.5 5.0-8.0 BLANCA (test code = BLANCA) DRUG CUTOFF CONC.Cocaine 300 ng/mL Cannabinoid 50 ng/mLBenzodiazepine 200 ng/mLBarbiturate 200 ng/mLPhencyclidine 25 ng/mLOpiate 300 ng/mLMethadone 300 ng/mLAmphetamine/ 1000 ng/mL Methamphetamine This assay provides an unconfirmed qualitative test result for the clinical management of patients in emergency situations. Chain of custody not maintained. Some gkxp-rxb-qxtydcd medications, as well as adulterants, may cause inaccurate results. Clinical correlation should be applied. A more comprehensive drug screen or confirmation of a detected drug may be performed upon request.Fundraising Manager ID - [auto] Lab Interpretation (test code = 47857-3) Abnormal [facility] DiegoRAPID DRUG SCREEN, [id number] 11:56:10* Test Item Value Reference Range Interpretation [...] situations. Chain of custody not maintained. Some ztad-koc-xlqmywp medications, as well as adulterants, may cause inaccurate results. Clinical correlation should be applied. A more comprehensive drug screen or confirmation of a detected drug may be performed upon request.Fundraising Manager ID - [auto]HAPTOGLOBIN 2024-12-10 11:23:49* Test Item Value Reference Range Interpretation Comme nts HAPTOGLOBIN (BEAKER) (test c ode = 366) < mg/dL 35-250 L LACTATE DEHYDROGENASE (LDH)2024-12-10 10:21:31* Test Item Value Reference Range Interpretation Comme nts LACTATE DEHYDROGENASE (BEAKE R) (test code = 635) 259 U/L 125-220 H BILIRUBIN, [id number] 10:16:05* Test Item Value Reference Range Interpretation Comme nts BILIRUBIN, INDIRECT (BEAKER) (test code = 1554) 6.3 mg/dL 0.0-1.1 H BILIRUBIN, [id number] 10:16:00* Test Item Value Reference Range Interpretation Comme nts BILIRUBIN DIRECT (BEAKER) (t est code = 706) 12.1 mg/dL 0.1-0.5 H Protein, random [id number] 09:05:50* Test Item Value Reference Range Interpretation Comme nts Protein, Urine (test code = 2888-6) 0-14 Lab Interpretation (test cod e = 26416-0) Normal [facility] CenterProtein, random [id number] 09:05:50* Test Item Value Reference Range Interpretation Comme nts Protein, Urine (test code = 2888-6) 0-14 Lab Interpretation (test cod e = 89552-0) Normal [facility] CenterPROTEIN, RANDOM [id number] 09:05:50* Test Item Value Reference Range Interpretation Comme nts PROTEIN, URINE (BEAKER) (troy t code = 1569) < mg/dL 0-14 Creatinine, random pohat6582-15-02 09:03:54* Test Item Value Reference Range Interpretation Comme nts Creatinine, Ur (test code = 2161-8) 41 mg/dL BLANCA (test code = BLANCA) Reference Range: No Normals [facility] CenterCreatinine, random [id number] 09:03:54* Test Item Value Reference Range Interpretation Comme nts Creatinine, Ur (test code = 2161-8) 41 mg/dL BLANCA (test code = BLANCA) Reference Range: No Normals [facility] CenterCREATININE, RANDOM [id number] 09:03:54* Test Item Value Reference Range Interpretation Comme nts CREATININE URINE (BEAKER) (t est code = 375) 41 mg/dL Reference Range: No NormalsT4, [id number] 08:01:57* Test Item Value Reference Range Interpretation Comme nts FREE T4 (BEAKER) (test code = 655) 1.14 ng/dL 0.70-1.48 [id number] 07:36:32* Test Item Value Reference Range Interpretation Comme nts PHOSPHORUS (BEAKER) (test co de = 604) 2.9 mg/dL 2.3-4.7 URIC [id number] 07:36:32* Test Item Value Reference Range Interpretation Comme nts URIC ACID (BEAKER) (test cod e = 773) 3.1 mg/dL 2.6-6.0 Specimen markedly ictericCOMPREHENSIVE METABOLIC [id number] 07:36:32* Test Item Value Reference Range Interpretation [...] not applicable for dialysis patients Specimen markedly tckpbxyBKOULAOYY0107-34-28 07:36:31* Test Item Value Reference Range Interpretation Comme nts MAGNESIUM (BEAKER) (test cod e = 627) 2.1 mg/dL 1.6-2.6 TSH/FREE T4 IF [id number] 07:33:07* Test Item Value Reference Range Interpretation Comme nts THYROID STIMULATING HORMONE (BEAKER) (test code = 772) 7.352 uIU/mL 0.350-4.940 H CARCINOEMBRYONIC ANTIGEN (CEA)2024-12-10 07:31:44* Test Item Value Reference Range Interpretation Comme nts CARCINOEMBRYONIC ANTIGEN (BE TACOS) (test code = 685) 5.6 ng/mL 0.0-5.0 H PROTHROMBIN TIME/[id number] 06:53:09* Test Item Value Reference Range Interpretation Comme nts PROTIME (BEAKER) (test code = 759) 23.9 seconds 9.9-12.7 H INR (BEAKER) (test code = 370) 2.15 See Comment RECOMMENDED COUMADIN/WARFARIN INR THERAPY RANGESSTANDARD DOSE: 2.0 - 3.0 Includes: PROPHYLAXIS for venous thrombosis, systemic embolization; TREATMENT for venous thrombosis and/or pulmonary embolus.HIGH RISK: Target INR is 2.5-3.5 for patients with mechanical heart valves.Fundraising Manager ID -CALCIUM, IONIZED 2024-12-10 06:24:28* Test Item Value Reference Range Interpretation Comme nts CALCIUM IONIZED (BEAKER) (te st code = 698) 1.10 mmol/L 1.12-1.27 L PH, BLOOD (BEAKER) (test cod e = 1810) 7.40 CBC W/PLT COUNT & AUTO [id number] 06:20:13* Test Item Value Reference Range Interpretation [...] = 2801) 1.70 % 0.00-1.00 H Urinalysis w/Pnusbpuxfpd2199-12-31 21:01:20* Test Item Value Reference Range Interpretation Comme nts Color, UA (test code = 5778-6) Dark Yellow Clarity, UA (test code = 5767-9) Hazy Specific [place], UA (test code = 5811-5) 1.012 1.001-1.035 pH, UA (test code = 5803-2) 6.5 5.0-8.0 Protein, UA (test code = 19000-8) Negative Negative Glucose, UA (test code = 365) Negative Negative Ketones, UA (test code = 2514-8) Negative Negative Bilirubin, UA (test code = 46396-0) Positive Negative A Blood, UA (test code = 54425-9) Negative Negative Nitrite, UA (test code = 5802-4) Negative Negative Leukocytes, UA (test code = 5799-2) Negative Negative Urobilinogen, UA (test code = 74609-6) 2 0.2-1.0 H RBC, UA (test code = 21056-5) 0 See_Comment [Automated message] The system which generated this result transmitted reference range: /HPF. The reference range was not used to interpret this result as normal/abnormal. WBC, UA (test code = 5821-4) 6 See_Comment [Automated message] The system which generated this result transmitted reference range: /HPF. The reference range was not used to interpret this result as normal/abnormal. Bacteria, UA (test code = 89892-3) Rare Squam Epithel, UA (test code = 84092-9) 2 See_Comment [Automated message] The system which generated this result transmitted reference range: /HPF. The reference range was not used to interpret this result as normal/abnormal. Hyaline Casts, UA (test code = 58140-2) 2 See_Comment [Automated message] The system which generated this result transmitted reference range: /LPF. The reference range was not used to interpret this result as normal/abnormal. Specimen Source (test code = 2795) Urine, Clean Catch BLANCA (test code = BLANCA) Fundraising Manager ID - [auto]Fundraising Manager ID - tech Lab Interpretation (test code = 82605-7) Abnormal [facility] DiegoURINALYSIS W/ VPXDCNYNKEG7499-57-88 21:01:20* Test Item Value Reference Range Interpretation [...] (test code = 2795) Urine, Clean Catch Fundraising Manager ID - [auto]Fundraising Manager ID - techOsmolality, yzrjg1255-29-12 12:52:44* Test Item Value Reference Range Interpretation Comme nts Osmolality, Ur (test code = 2695-5) 190 See_Comment [Automated messa ge] The system which generated this result transmitted reference range: 50-1,200 mOsm/kg mOsm/kg. The reference range was not used to interpret this result as normal/abnormal. Lab Interpretation (test code = 34178-9) Normal [facility] CenterOsmolality, [id number] 12:52:44* Test Item Value Reference Range Interpretation Comme nts Osmolality, Ur (test code = 2695-5) 190 See_Comment [Automated messa ge] The system which generated this result transmitted reference range: 50-1,200 mOsm/kg mOsm/kg. The reference range was not used to interpret this result as normal/abnormal. Lab Interpretation (test code = 90536-4) Normal [facility] CenterOSMOLALITY, [id number] 12:52:44* Test Item Value Reference Range Interpretation Comme nts OSMOLALITY URINE (BEAKER) (test code = 614) 190 mOsm/kg See_Comment [Automated Meet [employer]] The system which generated this result transmitted reference range: 50-1,200 mOsm/kg. The reference range was not used to interpret this result as normal/abnormal. CT chest with IV okbmbljl3356-35-89 12:45:28TECHNIQUE: CT of the chest, abdomen, and [...] thoracolumbar spine. Facet arthrosis from L3 to S1.[facility] CenterCT [facility] with IV txnxxptd2020-59-53 12:45:28TECHNIQUE: CT of the chest, abdomen, and [...] thoracolumbar spine. Facet arthrosis from L3 to S1.[facility] CenterCT CHEST WITH IV [id number] 12:45:28 [facility] : 1970 Sex: FTECHNIQUE: CT of the chest, abdomen, and pelvis WITH intravenouscontrast and WITH oral contrast. Dose modulation, iterativereconstruction, and/or weight-based adjustment of the mA/kVwas utilizedto reduce the radiation dose to as low as reasonably achievable.INDICATION: Abdominal pain, acute, nonlocalized, new jaundice andhepatic masses seen on OSH imagingCOMPARISON: NoneFINDINGS:NECK: Normal thyroid.HEART AND MEDIASTINUM: Normal heart size. No pericardial effusion. Nosignificant coronary artery calcifications. Normal course and caliber ofthe thoracic aorta without significant atherosclerotic plaque. Thepulmonary trunk measures 2.7 cm.LUNGS AND AIRWAYS: No suspicious pulmonary nodule. A left lower lobenodule with ovoid morphology abuts the major fissure, likely a fissurallymph node. No mass. No focal consolidation. Bandlike opacities in thelower lobes most likely represent atelectasis.PLEURA: No significant effusion. No pneumothorax.LIVER: Cirrhotic liver morphology with surface nodularity and volumetricredistribution. There are diffuse regions of geographic hypoatte nuationthroughout the liver which is predominantly perivascular in distributionwith intervening parenchymal bridges. There are penetrating vesselslocated within these regions of hypoattenuation and there is no frankevidence of mass effect. No discrete focal liver lesion.GALLBLADDER/BILIARY: Cholecystectomy. No biliary duct dilation.PANCREAS: No duct dilation or focal lesion.SPLEEN: Enlarged, measuring 16.2 cm.ADRENAL GLANDS: No adrenal nodule.KIDNEYS AND URETERS: No hydronephrosis, calculi, or s uspicious mass.BLADDER: Partially opacified with contrast.REPRODUCTIVE ORGANS: Hysterectomy.BOWEL: Ascending colon mild circumferential wall thickening. Oralcontrast opacifies loops of small bowel inthe low abdomen extending tothe mid ileum. No evidence of bowel obstruction.VESSELS: The portal venous system appears patent. The main portal veinmeasures 1.3 cm in diameter. No gardenia esophageal or gastric varices.Recanalized paraumbilical vein. Replaced right hepatic artery originatesfrom the superior mesenteric artery. Replaced left hepatic artery arisesfrom the left gastric artery.LYMPH NODES: Unremarkable.PERITONEUM/RETROPERITONEUM: Small volume ascites. No free air.BONES AND SOFT TISSUES: No suspicious bone lesion. Degenerative changesof the thoracolumbar spine. 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 Nodiscrete focal mass is seen, however, the presence of steatosis limitsthis single phase CT as fatty infiltration can obscure subtle focallesions. Furthermore, the lack of multiphase imaging reduce thesensitivity for focal lesion detection and characterization. Considerfurther imaging with MRI of the liver with contrast.* Stigmata of portal hypertension include splenomegaly and small volumeascites. No gardenia esophagealor gastric varices.* Mild circumferential wall thickening of the ascending colon, mayrepresent portal hypertensive colopathy. Colitis is an additionalconsideration in the appropriate clinical context.Electronically Signed By: Toni Valverde12/09/2024 12:48 CDTWorkstation Name: [id number] ABDOMEN/PELVIS WITH IV [id number] 12:45:28 [facility] - [facility]ENT[facility]ELA CAMPUSERName: CHICHI CASEY : 1970 Sex: FTECHNIQUE: CT [...] Signed By: Toni Valverde12/09/2024 12:48 CDTWorkstation Name: [id number] Sodium, random [id number] 12:11:11Sodium Urine<20meq/L12/09/2024 12:[address] [facility] Range: No NormalsCHI [facility], Sacramentoodium, random [id number] 12:11:11Sodium Urine<20meq/L12/09/2024 12:[address] [facility] Range: No NormalNovant Health Thomasville Medical CenterI [facility] CenterSODIUM, RANDOM URINE 2024-12-09 12:11:11* Test Item Value Reference Range Interpretation Comme nts SODIUM URINE (BEAKER) (test code = 243) < meq/L Reference Range: No NormalsPROTHROMBIN TIME/[id number] 08:30:24* Test Item Value Reference Range Interpretation Comme nts PROTIME (BEAKER) (test code = 759) 21.1 seconds 9.9-12.7 H INR (BEAKER) (test code = 370) 1.89 See Comment RECOMMENDED COUMADIN/WARFARIN INR THERAPY RANGESSTANDARD DOSE: 2.0 - 3.0 Includes: PROPHYLAXIS for venous thrombosis, systemic embolization; TREATMENT for venous thrombosis and/or pulmonary embolus.HIGH RISK: Target INR is 2.5-3.5 for patients with mechanical heart valves.Fundraising Manager ID -COMPREHENSIVE METABOLIC [id number] 08:01:58* Test Item Value Reference Range Interpretation [...] not applicable for dialysis patients Specimen markedly [id number] 07:58:59* Test Item Value Reference Range Interpretation [...] 413) 0 /100 WBC 0-0 HEPATITIS B [id number] 19:06:17* Test Item Value Reference Range Interpretation Comme nts HEPATITIS B CORE TOTAL ANTIB LORA (BEAKER) (test code = 497) Nonreactive Nonreactive HEPATITIS B SURFACE ANTIBODY (BEAKER) (test code = 647) 10.1 mIU/mL <8.0 H HEPATITIS B SURFACE ANTIGEN (2) (BEAKER) (test code = 2585) Nonreactive Nonreactive HEPATITIS A ANTIBODY, [id number] 18:28:54* Test Item Value Reference Range Interpretation Comme nts HEPATITIS A IGG ANTIBODY (BE TACOS) (test code = 2797) Reactive Nonreactive A ALPHA FETOPROTEIN (AFP), TUMOR [id number] 18:24:06* Test Item Value Reference Range Interpretation Comme nts ALPHA-FETOPROTEIN (BEAKER) ( test code = 1094) 3.4 ng/mL 0.9-8.8 HEPATITIS C [id number] 18:24:06* Test Item Value Reference Range Interpretation Comme nts HEPATITIS C ANTIBODY (BEAKER ) (test code = 367) Nonreactive Nonreactive COMPREHENSIVE METABOLIC [id number] 18:05:39* Test Item Value Reference Range Interpretation [...] applicable for dialysis patients Specimen markedly ictericPROTHROMBIN TIME/[id number] 18:01:03* Test Item Value Reference Range Interpretation Comme nts PROTIME (BEAKER) (test code = 759) 20.9 seconds 9.9-12.7 H INR (BEAKER) (test code = 370) 1.87 See Comment RECOMMENDED COUMADIN/WARFARIN INR THERAPY RANGESSTANDARD DOSE: 2.0 - 3.0 Includes: PROPHYLAXIS for venous thrombosis, systemic embolization; TREATMENT for venous thrombosis and/or pulmonary embolus.HIGH RISK: Target INR is 2.5-3.5 for patients with mechanical heart valves.Fundraising Manager ID -Hepatitis B surface [id number] 17:51:01* Test Item Value Reference Range Interpretation Comme nts Hepatitis B surface antigen (test code = 5196-1) Nonreactive Nonreactive BLANCA (test code = BLANCA) Specimen is considered negative for HBsAg. Lab Interpretation (test code = 41574-0) [facility] antibody, [id number] 17:51:01* Test Item Value Reference Range Interpretation Comme nts Hep A IgM (test code = 75732-2) Nonreactive Nonreactive Lab Interpretation (test cod e = 65302-6) Normal [facility] CenterHepatitis B surface [id number] 17:51:01* Test Item Value Reference Range Interpretation Comme nts Hepatitis B surface antigen (test code = 5196-1) Nonreactive Nonreactive BLANCA (test code = BLANCA) Specimen is considered negative for HBsAg. Lab Interpretation (test code = 84090-9) Normal [facility] CenterHep[facility] A antibody, [id number] 17:51:01* Test Item Value Reference Range Interpretation Comme nts Hep A IgM (test code = 00500-2) Nonreactive Nonreactive Lab Interpretation (test cod e = 87431-5) Normal [facility] SURFACE [id number] 17:51:01* Test Item Value Reference Range Interpretation Comme nts HEPATITIS B SURFACE ANTIGEN (2) (BEAKER) (test code = 2585) Nonreactive Nonreactive Specimen is considered negative for HBsAg.HEPATITIS A ANTIBODY, [id number] 17:51:01* Test Item Value Reference Range Interpretation [...] = 413) 0 /100 WBC 0-0 CULTURE, [id number] 08:29:56SPECIMEN NUMBER: [id number] CULTURE, URINE SPECIMEN NUMBER: [id number] SOURCE: URINE REPORT STATUS: FINAL ISOLATE NUMBER 1: ORGANISM: 09/01/2024 >100,000 CFU/ML GRAM NEGATIVE BACILLI IDENTIFICATION: 09/02/2024 ESCHERICHIA COLI E. COLI AMOXICILLIN/CA SENSITIVE <=8/4AMPICILLIN RESISTANT >16CEFAZOLIN SENSITIVE 8CEFTRIAXONE SENSITIVE <=1CIPROFLOXACIN INTERMED 0.5LEVOFLOXACIN SENSITIVE <=0.5NITROFURANTOIN SENSITIVE <=32PIP/TAZOBAC SENSITIVE <=16TOBRAMYCIN RESISTANT >8TRIMETH/SULFA RESISTANT >2/38 NOTE: NUMBERS DISPLAYED REPRESENT MINIMUM INHIBITORY CONCENTR ATION (BAUDILIO) WHICH IS EXPRESSED IN MCG/ML. UNLESS OTHERWISE INDICATED, ALL TESTING PERFORMED AT [facility] [address] [place] [address] MIXING MACHINE ATTENDANT: LINCOLN VILCHIS M.D. [place] NUMBER [id number] [facility] [place]. [id number], [id number] 00:00:00* Test Item Value Reference Range Interpretation Comme nts CULTURE, URINE (test code = 75092) SPECIMEN NUMBER: [id number] Arun Jeter, [id number] 00:00:00* Test Item Value Reference Range Interpretation Comme nts CULTURE, URINE (test code = 17665) SPECIMEN NUMBER: [id number] Arun Jeter [id number] 00:00:00* Test Item Value Reference Range Interpretation Comme nts CULTURE, URINE (test code = 78314) SPECIMEN NUMBER: [id number] Arun Jeter, [id number] 00:00:00* Test Item Value Reference Range Interpretation Comme nts CULTURE, URINE (test code = 83365) SPECIMEN NUMBER: [id number] Arun Jeter, [id number] 00:00:00* Test Item Value Reference Range Interpretation Comme nts CULTURE, URINE (test code = 25047) SPECIMEN NUMBER: [id number] Arun MontenegroC WITH [id number] 23:00:19* Test Item Value Reference Range Interpretation [...] 31.9 g/dL 31.6-35.1 RDW-SD (test code = 14975-9) 57.7 fL 39.0-49.9 H RDW-CV (test code = 788-0) 15.9 % 12.0-15.5 H PLT (test code = 777-3) 87 166-358 L MPV (test code = 18731-6) 10.4 fL 9.5-12.9 IPF % (test code = 3559365249) 3.4 % 1.3-7.7 Platelet count measured by fluorescence method. NRBC/100 WBC (test code = 4843983457) 0.0 0.0-10.0 NRBC x10^3 (test code = 1390642569) See_Comment [Automated Meet My Friendsa ge] The system which generated this result transmitted reference range: 10*3/?L. The reference range was not used to interpret this result as normal/abnormal. GRAN MAT (NEUT) % (test code = 770-8) 55.9 % IMM GRAN % (test code = 4974911482) 0.40 % LYMPH % (test code = 736-9) 28.2 % MONO % (test code = 5905-5) 12.6 % EOS % (test code = 713-8) 2.5 % BASO % (test code = 706-2) 0.4 % GRAN MAT x10^3(ANC) (test code = 5436880150) 1.55 10*3/uL 1.88-7.09 L IMM GRAN x10^3 (test code = 8789151403) 0.00-0.06 LYMPH x10^3 (test code = 731-0) 0.78 10*3/uL 1.32-3.29 L MONO x10^3 (test code = 742-7) 0.35 10*3/uL 0.33-0.92 EOS x10^3 (test code = 711-2) 0.07 10*3/uL 0.03-0.39 BASO x10^3 (test code = 704-7) 0.01-0.07 Lab Interpretation (test code = 91917-8) Abnormal [facility] Center[facility] METABOLIC PANEL ([id number])2024-07-10 22:27:11* Test Item Value Reference Range Interpretation Comme nts NA (test code = 7218023056) 140 mmol/L 135-145 K (test code = 5423907348) 3.8 mmol/L 3.5-5.0 CL (test code = 2825560678) 106 mmol/L 98-108 CO2 TOTAL (test code = 0022039400) 25 mmol/L 23-31 AGAP (test code = 2401172802) 9 2-16 BUN (test code = 1540774268) 9 mg/dL 7-23 GLUCOSE (test code = 0271461736) 99 mg/dL 70-110 CREATININE (test code = 2160-0) 0.51 mg/dL 0.50-1.04 TOTAL BILI (test code = 3969073854) 1.8 mg/dL 0.1-1.1 H CALCIUM (test code = 3173756692) 8.9 mg/dL 8.6-10.6 T PROTEIN (test code = 6931197786) 7.2 g/dL 6.3-8.2 ALBUMIN (test code = 8627282689) 4.0 g/dL 3.5-5.0 ALK PHOS (test code = 6157400517) 86 U/L 34-122 ALTv (test code = 1742-6) 15 U/L 5-35 AST(SGOT) (test code = 9746055353) 46 U/L 13-40 H eGFR (test code = 36998-9) 111.1 mL/min/1.73m2 CKD-EPI eGFR (2020). Assuming creatinine has been stable day-to-day for at least three months, the eGFR indicates Category G1 (>= 90 mL/min/1.73 m2) Lab Interpretation (test code = 70906-9) Abnormal [facility] CenterLIPASE2024-09-10 22:26:36* Test Item Value Reference Range Interpretation Comme nts LIPASE (test code = 1263777020) 111 U/L 0-220 Lab Interpretation (test cod e = 13094-6) Normal [facility] CenterCT ABDOMEN PELVIS WO [id number] 21:36:35CT Abdomen and Pelvis without contrast. CLINICAL [...] bladder. Minimal free fluid is seen in cfmwdi-hp-wbz, of uncertain etiology or clinical significance. Bones: ?Lower thoracic degenerative spondylosis. No acute bonyabnormalities. Soft tissues: Small, indirect type of fat-containing inguinal hernia,slightly larger on the right side. CONCLUSION:1. No kidney stones or ureteric stones. No hydronephrosis or hydroureter.2. Borderline hepatomegaly with cirrhotic morphology, portal hypertensioncausing moderate splenomegaly. No ascites.3. S/P cholecystectomy, appendectomy and hysterectomy.[facility] CenterPOCT [id number] 03:45:00* Test Item Value Reference Range Interpretation Comme nts POCT PREG (test code = 1605) Negative On board controls acceptable with C Line (test code = 3574) Yes Lab Interpretation (test cod e = 29521-7) Normal [facility] CenterCB WITH [id number] 03:10:57* Test Item Value Reference Range Interpretation [...] 32.1 g/dL 31.6-35.1 RDW-SD (test code = 00833-1) 49.1 fL 39.0-49.9 RDW-CV (test code = 788-0) 13.5 % 12.0-15.5 PLT (test code = 777-3) 124 166-358 L MPV (test code = 70437-8) 11.4 fL 9.5-12.9 NRBC/100 WBC (test code = 9677003857) 0.0 0.0-10.0 NRBC x10^3 (test code = 7030536822) See_Comment [Automated messa ge] The system which generated this result transmitted reference range: 10*3/?L. The reference range was not used to interpret this result as normal/abnormal. GRAN MAT (NEUT) % (test code = 770-8) 50.3 % IMM GRAN % (test code = 1955835497) 0.30 % LYMPH % (test code = 736-9) 30.8 % MONO % (test code = 5905-5) 12.5 % EOS % (test code = 713-8) 5.2 % BASO % (test code = 706-2) 0.9 % GRAN MAT x10^3(ANC) (test code = 4285061878) 1.73 10*3/uL 1.88-7.09 L IMM GRAN x10^3 (test code = 5892238508) 0.00-0.06 LYMPH x10^3 (test code = 731-0) 1.06 10*3/uL 1.32-3.29 L MONO x10^3 (test code = 742-7) 0.43 10*3/uL 0.33-0.92 EOS x10^3 (test code = 711-2) 0.18 10*3/uL 0.03-0.39 BASO x10^3 (test code = 704-7) 0.03 10*3/uL 0.01-0.07 Lab Interpretation (test code = 16093-1) Abnormal [facility] 2 [id number] 02:46:09ORDERING PHYSICIAN: GORDY RANDOLPH ? CLINICAL HISTORY:chest pain TECHNIQUE:Chest AP and lateral radiographs. COMPARISON:CXR 05/04/2024. FINDINGS:Normal lung volumes. No focal pulmonary consolidation, pleural effusion orpneumothorax. Heart size within normal limits. Visualized bones areunremarkable.[facility] CenterTRGAIL [id number] 02:16:56* Test Item Value Reference Range Interpretation Comme nts TROPONIN I (test code = 2948128526) <=0.034 BLANCA (test code = BLANCA) Reference [...] of biotin. Lab Interpretation (test code = 74831-9) Normal [facility] METABOLIC PANEL (99624)2024-05-28 02:06:12* Test Item Value Reference Range Interpretation Comme nts NA (test code = 7760755104) 140 mmol/L 135-145 K (test code = 9180755283) 3.6 mmol/L 3.5-5.0 CL (test code = 3782448186) 108 mmol/L 98-108 CO2 TOTAL (test code = 6082814614) 24 mmol/L 23-31 AGAP (test code = 3770864787) 8 2-16 BUN (test code = 2082713526) 7 mg/dL 7-23 GLUCOSE (test code = 0223673413) 128 mg/dL 70-110 H CREATININE (test code = 2160-0) 0.53 mg/dL 0.50-1.04 TOTAL BILI (test code = 4171527798) 1.3 mg/dL 0.1-1.1 H CALCIUM (test code = 3171437315) 9.0 mg/dL 8.6-10.6 T PROTEIN (test code = 3231415863) 7.7 g/dL 6.3-8.2 ALBUMIN (test code = 0142528247) 4.2 g/dL 3.5-5.0 ALK PHOS (test code = 3623363238) 88 U/L 34-122 ALTv (test code = 1742-6) 18 U/L 5-35 AST(SGOT) (test code = 0911824636) 43 U/L 13-40 H eGFR (test code = 81268-3) 110.1 mL/min/1.73m2 CKD-EPI eGFR (2020). Assuming creatinine has been stable day-to-day for at least three months, the eGFR indicates Category G1 (>= 90 mL/min/1.73 m2) Lab Interpretation (test code = 93407-0) Abnormal [facility] CenterLIPASE, [id number] 02:05:12* Test Item Value Reference Range Interpretation Comme nts LIPASE (test code = 4718586936) 107 U/L 0-220 Lab Interpretation (test cod e = 72769-0) Normal [facility] CenterXR NECK SOFT [id number] 02:52:11EXAM: XR NECK SOFT TISSUE HISTORY: sore [...] noevidence of foreign body or soft tissue emphysema.[facility] CenterXR CHEST 1 [id number] 01:08:11ORDERING PHYSICIAN: TAMY MORALES HISTORY: cough, fever TECHNIQUE: AP view of the chest ? COMPARISON: None FINDINGS: Shallow inspiratory volumes. ? ?Mild patchy bilateral interstitial opacities. Noairspace consolidation. No pleural effusion or pneumothorax. ? The cardiac silhouette and pulmonaryvasculature are within normal limits. ? Degenerative changes are seen in the spine and shoulders.[facility] Notes Date/Time Note Provider Source Referral ID Status Reason Start Date Expiration Date Visits Requested Visits Authorized [id number] Pending Review Service Not Available at Clinic 06/27/2025 09/25/2025 1 1 Carolann [id number] 15:09:26* Carolann [id number] 15:09:26* Lashonda Ruvalcaba FNP-C - 06/27/2025 2:30 PM CDT HPI: Chichi Casey is a 54 year old female is here for Referral HPI Pt presents for ER follow up from [facility] 06/25/25 for nausea, vomiting, malaise, fatigue Her liver transplant team at [facility] sent her to the ER for her symptoms In ED received iopamidol, klor con, reglan, and IVF. CT abdomen performed Pt with hyperbilirubinemia /Hepatic cirrhosis Hx of stroke/seizures : Pt will get off her seizure medication next month per transplant team She has been now 6 months on liver transplant list She has a follow up appointment with liver transplant team on 07/23/25 Pt reports she slipped on uneven side walk 2 weeks ago. She went to [facility]. Left shoulder was fractured. She was given tramadol and Tylenol 3 for pain. Was told to wear sling until she sees orthopedics. Requesting referral to Dr. Sr in [place]. Pt was told she needs to have her left shoulder addressed prior to getting liver transplant. 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 PAIN TECHNIQUE: Internal and external AP view radiograph of the left shoulder were obtained. COMPARISON: No prior exam. FINDINGS: Mild caudal subluxation of the humeral head. Crescentic radiodensity posterior to the humeral head seen on the Y view, could represent dystrophic calcification in the periarticular soft tissues versus a small displaced glenoid fragment. Moderate arthropathy. No other focal bone lesion. Soft tissue swelling about the shoulder. IMPRESSION: Crescentic radiodensity posterior to the humeral head, could represent dystrophic periarticular calcification versus a small displaced glenoid fracture fragment. Signed By: Dev Chatman Signed AT: 06/08/25 1341 06/03/25: Hgb 12.2. Hct 36.2. PLT 143. Total bilirubin 3.8. Potassium 3.2. 05/15/25: Total bilirubin 4.7. Direct bili 1.7. AST 42. ALT 11. Lipase 25. 8 [facility] ER note: History of Present Illness: History of Present Illness History of liver transplant remotely, follows with [facility]. Reports 2 days of nausea with vomiting today, tried Zofran 3 times without improvement, called her transplant and told to come to ER. Reports fatigue and malaise and generally does not feel well. Has some increased abdominal distention, is unsure if she needs another paracentesis, last 1 was in December. No measured fever. No known sick contacts. No cough or sore throat. No urinary issues. Assessment & Plan Medical Decision Making History of liver transplant, no missed medications. Does not appear septic or in acute rejection on evaluation initially, she has mild distention of the abdomen but most of it seems to be due to her obesity rather than a tense ascites, no respiratory distress. Has vague fatigue and vomiting, will check basic labs, urinalysis for UTI, check INR and ammonia levels, give IV fluids and Reglan for antiemetic.Labs show worsening of her liver function compared to prior values, mild hypokalemia. Oral KCl given. Viral swabs and urinalysis and CT pending. Signed out to oncoming physician. CT ABDOMEN PELVIS W CONTRAST STAT 06/25/2025 6:45 PM CDT Nausea and vomiting, unspecified vomiting type Malaise and fatigue Procedure Note - Dre Donohue MD - 06/25/2025 6:45 PM CDT This note is in progress. EXAM: CT ABDOMEN PELVIS W CONTRAST HISTORY: 54 years old Female with Abdominal pain, acute, nonlocalized . Vomiting and bloating COMPARISON: CT abdomen pelvis dated 07/10/2024. TECHNIQUE AND FINDINGS: Contiguous axial imaging from the level of the lung bases through the pubic symphysis was performed after administration of intravenous contrast. Coronal and sagittal reconstructions were obtained. Auto mA and/or iterative reconstruction were used to reduce radiation dose. FINDINGS: LOWER THORAX: Minimal left basilar dependent subsegmental atelectasis. The lungs bases are clear. No cardiomegaly. LIVER: The liver is normal in size. Micronodular contour with widening of the hepatic fissure. No focal lesions. GALLBLADDER AND BILIARY TREE: Changes of prior cholecystectomy. No biliary ductal dilatation. SPLEEN: Spleen is enlarged measuring 15.3 cm in the greatest dimension. PANCREAS: No ductal dilation or masses. ADRENAL GLANDS: No adrenal nodules. KIDNEYS: No hydronephrosis, stones, or masses. PERITONEUM AND RETROPERITONEUM: Encapsulated type of ramona mesentery more prominent in the central abdomen and peripancreatic region (39-64:2) no free air. No free fluid. LYMPH NODES: A few prominent periportal lymph nodes are noted measuring up to 1 cm in short axis, likely reactive. GI TRACT: No dilation or wall thickening. Changes of prior appendectomy. PELVIS/BLADDER: Urinary bladder is decompressed. Changes of prior hysterectomy. VESSELS: Esophageal varices is noted (16:2). Splenorenal portosystemic shunt is noted. Recanalization of the umbilical vessel is noted. Conventional venous anatomy. Scattered calcified plaques of the aortoiliac vessels resulting in no significant luminal narrowing. BONES AND SOFT TISSUES: Multilevel degenerative changes of the lower lumbar spine in the form of facet arthrosis. No suspicious lytic or sclerotic bony lesions. IMPRESSION No acute intra-abdominal/pelvic abnormality. Nonspecific mesenteric fat stranding predominantly involving the mesenteric root in the upper abdomen. Considerations are mesenteric congestion in the setting of hepatic cirrhosis versus sclerosing mesenteritis without vascular compromise. Hepatic cirrhosis with signs of portal hypertension in the form of esophageal varices, portosystemic shunts and splenomegaly. Current Medications: Current Medications[1] Allergies: Patient has no known allergies. I have reviewed the past Medical, Family, and Social history. Review of Systems: All systems are negative, except those pertinent items mentioned in the HPI. Review of Systems Respiratory: Negative for shortness of breath. Cardiovascular: Negative for chest pain. Musculoskeletal: Positive for arthralgias (left shoulder). Physical Exam: BP 123/68 (Side: Right Arm, Position: SITTING, Cuff Size: Medium Adult) | Pulse 79 | Temp 97.9 ?F (36.6 ?C) (Tympanic) | Resp 19 | Ht 5' 2" (1.575 m) | Wt 185 lb (83.9 kg) | LMP (LMP Unknown) | SpO2 99% | BMI 33.84 kg/m? Physical Exam Vitals reviewed. Constitutional: General: She is not in acute distress. Appearance: Normal appearance. She is not toxic-appearing. Cardiovascular: Rate and Rhythm: Normal rate and regular rhythm. Heart sounds: Normal heart sounds. No murmur heard. Pulmonary: Effort: Pulmonary effort is normal. No respiratory distress. Breath sounds: Normal breath sounds. No wheezing. Neurological: Mental Status: She is alert. Assessment and Plan: Chichi was seen today for referral. 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 Hepatic cirrhosis, unspecified hepatic cirrhosis type, unspecified whether ascites present (multi HCC) Hyperbilirubinemia Other orders- Gabapentin 100 MG oral Capsule; 2 mg. - rifAXIMin 550 MG oral Tablet; Take 550 mg by mouth 2 times daily. - Spironolactone 50 MG oral Tablet; Take 1 tablet (50 mg total) by mouth daily. - Folic Acid 1 MG oral tablet; Take 1 tablet (1 mg total) by mouth daily. - Levetiracetam (Keppra) 1000 MG oral Tablet; Take 1 tablet (1,000 mg total) by mouth 2 times daily. - Ondansetron HCl 4 MG oral Tablet; Take 1 tablet (4 mg total) by mouth every 8 hours as needed. - Lactulose Encephalopathy 10 GM/15ML oral Solution; Take 30 mL (20 g total) by mouth 3 times daily. Fracture of the left shoulder: Will send referral to Dr. Vaz's office in [place]. Will send a short course of Tylenol 3 until patient is able to see Dr. Vaz for further evaluation and recommendations. Recommend to keep left shoulder in the sling till further evaluation. Hepatic cirrhosis/hyperbilirubinemia: Managed by [facility]'s transplant team. Has a follow-up 07/23/25. Will need to have left shoulder addressed prior to getting a liver transplant. Is on the wait list. ER precautions: If experiencing any chest pain, shortness of breath, dizziness, headache please go to the emergency room immediately. Return in about 4 weeks (around 07/25/2025) for physical. Lashonda Ruvalcaba, BRIE-CSP: DO Jennifer [facility]Will[facility] This document was completed using voice recognition software. This can produce loan secretary errors that can at times significantly distort words and phrases. Please interpret any aspect of the note that is nonsensical in light of this fact. [1]Current Outpatient Medications Medication Sig Dispense Refill Acetaminophen-Codeine 300-60 MG oral Tablet Take 1 tablet by mouth 2 times daily as needed for pain. 14 tablet 0 Ascorbic Acid (Vitamin C) 500 MG oral Tablet Take 1 tablet (500 mg total) by mouth in the morning and 1 tablet (500 mg total) in the evening. Cetirizine (ZyrTEC Allergy) 10 MG oral Tablet Take 1 tablet (10 mg total) by mouth daily. Ferrous Sulfate (Iron) 325 (65 Fe) MG oral Tablet Take 1 tablet (325 mg total) by mouth in the morning and 1 tablet (325 mg total) in the evening. Folic Acid 1 MG oral tablet Take 1 tablet (1 mg total) by mouth daily. Gabapentin 100 MG oral Capsule 2 mg. Lactulose Encephalopathy 10 GM/15ML oral Solution Take 30 mL (20 g total) by mouth 3 times daily. Levetiracetam (Keppra) 1000 MG oral Tablet Take 1 tablet (1,000 mg total) by mouth 2 times daily. Ondansetron HCl 4 MG oral Tablet Take 1 tablet (4 mg total) by mouth every 8 hours as needed. Pantoprazole Sodium 40 MG oral Tablet Delayed Response Take 1 tablet (40 mg total) by mouth daily. 30 tablet 1 rifAXIMin 550 MG oral Tablet Take 550 mg by mouth 2 times daily. Spironolactone 50 MG oral Tablet Take 1 tablet (50 mg total) by mouth daily. No current facility-administered medications for this visit. 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, subsequent encounter Ordered: 06/27/2025 Health Maintenance Due Date Last Done Comments CT Colonography 1970 Cologuard 1969 FIT Tests 1970 Sigmoidoscopy 1969 Lipid Panel 1989 Physical Exam 2009 COVID-19 Vaccine ( season) 2024 Influenza Vaccines (#1) 2025 12/26/2024 Mammogram 02/13/2027 02/13/2025 COLONOSCOPY 02/28/2035 02/28/2025, 02/28/2025 Colorectal Cancer Screening 02/28/2035 Tdap Vaccines 03/21/2035 03/21/2025 Pneumococcal Vaccine: 50+ Years Completed Zoster Vaccines Completed 04/26/2025, 02/24/2025 RSV Vaccines Completed 06/24/2025 [facility]2025-08-28 15:09:26 Diagnosis 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 Quach notfied and at bedside pt was advised that she would have to sign out [place] due to her ct scan not being read it. Patient leaving Patients A&OX4 ,discussed risks of leaving against medical advice/final dispositon, Patient encouraged to seek medical attention for any new/prolonged/worsening of symptoms and stressed importance of follow up with a medical provider as soon as possible. AMA form explained, patient verbalized understanding and signature obtained IV d'cd, dressing to site. Patient leaving ambulatory with steady gait, appears in no distress aKrla Lea RNSCC[facility] LimaFeiqfe6725-04-22 19:04:01 [facility] ED Transfer of Care Note. Off-going Physician:Dr. Pineda Time of Transfer of Care: 7:04 PM Summary: Chichi Casey is a 54 year old female presenting with chief complaint of n/v, fatigue. Pending prior to disposition: Imaging and Reevaluation Current interventions: Medications NaCl 0.9% (NS) bolus infusion 500 mL (500 mL IV Infusion New Bag 06/25/251758) metoclopramide HCl (REGLAN) injection 5 mg (5 mg Slow IV Push Given 06/25/25 180) KCL (KLOR-CON M20) tablet 20 mEq (20 mEq Oral Given 06/25/25 1909) iopamidol (ISOVUE 370-500 mL) injection 83 mL (83 mL Intravenous Given 06/25/25 190) Results: Labs Reviewed CBC WITH DIFF - Abnormal; Notable for the following components: Result Value WBC 4.24 (*) RBC 3.23 (*) HGB 11.0 (*) HCT 33.3 (*) MCV 103.1 (*) MCH 34.1 (*) RDW-SD 61.7 (*) RDW-CV 16.9 (*) PLT 121 (*) MPV 9.3 (*) LYMPH x1031.00 (*) All other components within normal limits COMP. METABOLIC PANEL (74792) - Abnormal; Notable for the following components: K 3.4 (*) TOTAL BILI 3.8 (*) ALK PHOS 165 (*) AST(SGOT) 52 (*) All other components within normal limits PROTHROMBIN TIME / INR - Abnormal; Notable for the following components: PROTIME PATIENT 17.7 (*) All other components within normal limits URINALYSIS - Abnormal; Notable for the following components: UROBILIN 2.0 mg/dL (*) All other components within normal limits LIPASE - Normal INFLUENZA A/B RSV COVID NAAT - Normal AMMONIA, PLASMA - Normal ETHANOL Narrative: <10 Negative 50-100 Toxic >100 Depression of MARITIME GUARD >[address] Abdomen pelvis w contrast (Results Pending) Procedures: Procedures Additional Notes: Diagnosis/Impression as of 06/25/251951 Nausea and vomiting, unspecified vomiting type Malaise and fatigue Medical Decision Making The patient was signed out pending results of CT imaging as well as reevaluation for abdominal pain and swelling. She is listed on the transplant list at [facility] for a liver due to a history of cirrhosis. Her laboratory studies show an elevated total bilirubin level of 3.8 compared to prior values in our system. The CT of her abdomen pelvis was completed but has not been read as of yet. The patient reports her father fell and is on his way to [facility] in the [facility] and she needs to go there. Therefore she is leaving AGAINST MEDICAL ADVICE. Advised the patient to follow-up with her care coordinator and team for further care. Problems Addressed: Malaise and fatigue: acute illness or injury Nausea and vomiting, unspecified vomiting type: acute illness or injury Amount and/or Complexity of Data Reviewed Labs: ordered. Decision-making details documented in ED Course. Radiology: ordered. Risk Prescription drug management. Assessment & Plan Disposition: Left Against Medical Advice Social Determinants of Health: None ED Disposition ED Disposition AMA Condition Stable Comment -- [facility]CC[facility] [id number] 19:01:39 Report handed off to Karla ACOSTA. Gentry Galan [facility]ecgfu9782-75-83 17:38:45 Pt states she has been vomiting with bloating since last night. Hx cirrhosis Ayala Francisco [facility] HospitalYvjpdq2436-34-78 17:34:00 [facility] Emergency Department Note Patient Name: Chichi Casey Date of : 1970 54 year old female Treatment Room: [place] [address] Primary Care Physician: Wolfgang Yueng Patient Escorted by: Self [9] Mode of Arrival: Personal means [1] EMS Treatment Prior to ED Arrival: [employer] REPRESENTATIVE treatment comments: 4 mg zofran PO at 1600 Travel and Exposure Screening: Symptoms Does patient have any of these symptoms?: (not recorded) Exposure Screening Has patient had contact with someone with a communicable disease in the last month?: (not recorded) Diseases exposed to:: (not recorded) Is Patient ?: (not recorded) Exposure Date: (not recorded) Chief Complaint: Chief Complaint Patient presents with Vomiting History of Present Illness: History of Present Illness History of liver transplant remotely, follows with [facility]. Reports 2 days of nausea with vomiting today, tried Zofran 3 times without improvement, called her transplant and told to come to ER. Reports fatigue and malaise and generally does not feel well. Has some increased abdominal distention, is unsure if she needs another paracentesis, last 1 was in December. No measured fever. No known sick contacts. No cough or sore throat. No urinary issues. Past Medical History/Immunizations: Past Medical History: Diagnosis Date Clinical depression HLD (hyperlipidemia) HTN (hypertension) Intracerebral hemorrhage 04/17/2024 [facility] Tetanus received in last 5 years: Yes Childhood immunizations: Up-to-date Allergies: No Known Allergies Past Social History: Sexual Activity Sexually active; Partners: Male. Past Surgical History: No past surgical history on file. Review of Systems: Review of Systems Constitutional: Positive for activity change and fatigue. Negative for chills and fever. Respiratory: Negative for cough and shortness of breath. Cardiovascular: Negative for chest pain. Gastrointestinal: Positive for abdominal distention, abdominal pain, nausea and vomiting. Musculoskeletal: Negative for neck pain. Skin: Negative for pallor and rash. All other systems reviewed and are negative. Physical Exam: Physical Exam ED Triage Vitals [06/25/25 1742] Weight 82.8 kg (182 lb 8.7 oz) Actual or estimated Height 1.575 m (5' 2") BP (!) 143/83 Pulse 84 Resp 16 Temp 36.8 ?C (98.2 ?F) Temp source Oral SpO2 98 % Measured on Room air Physical Exam Vitals and nursing note reviewed. Constitutional: General: She is not in acute distress. Appearance: She is well-developed. She is obese. She is not ill-appearing or toxic-appearing. HENT: Head: Normocephalic and atraumatic. Nose: Nose normal. Eyes: General: No scleral icterus. Neck: Vascular: No JVD. Cardiovascular: Rate and Rhythm: Normal rate and regular rhythm. Pulses: Normal pulses. Pulmonary: Effort: Pulmonary effort is normal. No respiratory distress. Abdominal: General: There is no distension. Palpations: Abdomen is soft. Tenderness: There is abdominal tenderness. There is no guarding or rebound. Musculoskeletal: Cervical back: Normal range of motion and neck supple. Right lower leg: No edema. Left lower leg: No edema. Skin: Capillary Refill: Capillary refill takes less than 2 seconds. Findings: No erythema or rash. Neurological: Mental Status: She is alert. Psychiatric: Behavior: Behavior normal. Thought Content: Thought content normal. Judgment: Judgment normal. Radiology: No orders to display Lab Results: Lab Results CBC WITH DIFF - Abnormal Result Value Ref Range WBC 4.24 (*) 4.30 - 11.10 10*3/?L RBC 3.23 (*) 3.93 - 5.25 10*6/?L HGB 11.0 (*) 11.6 - 15.0 g/dL HCT 33.3 (*) 35.7 - 45.2 % MCV 103.1 (*) 80.6 - 95.5 fL MCH 34.1 (*) 25.9 - 32.8 pg MCHC 33.0 31.6 - 35.1 g/dL RDW-SD 61.7 (*) 39.0 - 49.9 fL RDW-CV 16.9 (*) 12.0 - 15.5 % PLT 121 (*) 166 - 358 10*3/?L MPV 9.3 (*) 9.5 - 12.9 fL NRBC/100 WBC 0.0 0.0 - 10.0 /100 WBCs NRBC x103<0.01 10*3/?L GRAN MAT (NEUT) % 63.0 % IMM GRAN % 0.20 % LYMPH % 23.6 % MONO % 9.0 % EOS % 3.5 % BASO % 0.7 % GRAN MAT x103(ANC) 2.67 1.88 - 7.09 10*3/uL IMM GRAN x103<0.03 0.00 - 0.06 10*3/uL LYMPH x1031.00 (*) 1.32 - 3.29 10*3/uL MONO x1030.38 0.33 - 0.92 10*3/uL EOS x1030.15 0.03 - 0.39 10*3/uL BASO x1030.03 0.01 - 0.07 10*3/uL COMP. METABOLIC PANEL (90078) - Abnormal NA 136 135 - 145 mmol/L K 3.4 (*) 3.5 - 5.0 mmol/L CL 106 98 - 108 mmol/L CO2 TOTAL 24 23 - 31 mmol/L AGAP 6 2 - 16 BUN 7 7 - 23 mg/dL GLUCOSE 94 70 - 110 mg/dL CREATININE 0.63 0.50 - 1.04 mg/dL TOTAL BILI 3.8 (*) 0.1 - 1.1 mg/dL CALCIUM 8.7 8.6 - 10.6 mg/dL T PROTEIN 7.3 6.3 - 8.2 g/dL ALBUMIN 3.7 3.5 - 5.0 g/dL ALK PHOS 165 (*) 34 - 122 U/L ALTv 20 5 - 35 U/L AST(SGOT) 52 (*) 13 - 40 U/L eGFR 104.9 mL/min/1.73m2 PROTHROMBIN TIME / INR - Abnormal PROTIME PATIENT 17.7 (*) 10.1 - 12.6 Seconds INR 1.5 LIPASE - Normal LIPASE 179 0 - 220 U/L AMMONIA, PLASMA - Normal AMMONIA 17 9 - 33 umol/L ETHANOL ALCOHOL <10 mg/dL URINALYSIS INFLUENZA A/B RSV COVID NAAT EKG: If EKG completed, see Procedure Note. Orders and Treatments: Orders Placed This Encounter Procedures CT Abdomen pelvis w contrast Cbc with Diff Comp. Metabolic Panel (02475) Prothrombin Time / INR Lipase Ethanol Urinalysis Influenza A B RSV COVID NAAT Ammonia, Plasma Orders Placed This Encounter Medications NaCl 0.9% (NS) bolus infusion 500 mL metoclopramide HCl (REGLAN) injection 5 mg KCL (KLOR-CON M20) tablet 20 mEq First Provider Eval: ED Events Date/Time Event User Comments 06/25/25 1736 Medical Screening Begins TYREL PINEDA MD -- 06/25/25 173 First Provider Evaluation TYREL PINEDA MD -- ED COURSE Diagnosis/Impression as of 06/25/25 1845 Nausea and vomiting, unspecified vomiting type Malaise and fatigue Results Procedures: Procedures MDM: Assessment & Plan Medical Decision Making History of liver transplant, no missed medications. Does not appear septic or in acute rejection on evaluation initially, she has mild distention of the abdomen but most of it seems to be due to her obesity rather than a tense ascites, no respiratory distress. Has vague fatigue and vomiting, will check basic labs, urinalysis for UTI, check INR and ammonia levels, give IV fluids and Reglan for antiemetic.Labs show worsening of her liver function compared to prior values, mild hypokalemia. Oral KCl given. Viral swabs and urinalysis and CT pending. Signed out to oncoming physician. Problems Addressed: Malaise and fatigue: complicated acute illness or injury Nausea and vomiting, unspecified vomiting type: complicated acute illness or injury Amount and/or Complexity of Data Reviewed Labs: ordered. Decision-making details documented in ED Course. Radiology: ordered. Risk Prescription drug management. Flowsheet Documentation: Scoring Tools: No data recorded Disposition/Condition: ED Disposition None Discharge Medications: Patient's Medications START taking these medications No medications on file CONTINUE taking these medications which have NOT CHANGED ASPIRIN 81 MG ORAL TAB Take 1 tab PO daily ESGIC-PLUS 50-500-40 MG ORAL CAP Take 1 tab q4hPRN FERROUS SULFATE 325 MG (65 MG IRON) EC TABLET Take 1 tablet by mouth in the morning. LEVETIRACETAM 1,000 MG TABLET Take 1 tablet by mouth twice daily For seizures - do not miss doses LIDOCAINE 5 % (700 MG/PATCH) PATCH Apply one patch to most painful area up to 12 hours a day as needed for pain. PHARMACIST: dispense one box LORAZEPAM 1 MG ORAL TAB Take 1 tab PO BIDPRN ONDANSETRON HCL 4 MG ORAL TAB Take 1 tab q8hPRN PAROXETINE HCL 20 MG ORAL TAB Take 1 tab PO daily TRAMADOL 50 MG TABLET Take 1 tablet by mouth every 6 (six) hours as needed (pain). Indications: acute pain START taking Modified Medications as Prescribed No medications on file STOP taking these medications No medications on file Follow-up: Electronically signed by: Tyrel Pineda MD 06/25/251844 [facility]2025-08-25 00:00:00 [facility]2025-05-19 00:00:00 [facility]2025-03-06 00:00:00 [facility]2025-01-07 00:00:00 [facility]2024-10-31 00:00:00 [facility]2024-09-19 00:00:00 [facility]2024-09-10 15:03:59 Patient arrived ambulatory via pov states she woke up around 0200 and the right side of her mid back started hurting with spasms. Patient denies injury, hx of recent stroke April 17, 2024, starts rehab Tuesday. Ayala Francisco [facility] - [id number] 14:54:00 [facility] Emergency Department Note Patient Name: Chichi Casey Date of : 1970 53 year old female Treatment Room: [facility] Primary Care Physician: Wolfgang Yeung Patient Escorted by: Self [9] Mode of Arrival: Personal means [1] EMS Treatment Prior to ED Arrival: [employer] REPRESENTATIVE treatment: None Travel and Exposure Screening: Symptoms [...] HLD (hyperlipidemia) HTN (hypertension) Intracerebral hemorrhage 04/17/2024 Brenda David Tetanus received in last 5 years: Unknown [...] 0.01 - 0.07 10*3/uL COMP. METABOLIC PANEL (67095) - Abnormal NA 140 135 - 145 [...] CONTRAST CBC WITH DIFF COMP. METABOLIC PANEL (90829) LIPASE URINALYSIS Orders Placed This Encounter Medications morpHINE (4 mg/mL) injection 4 mg ondansetron (ZOFRAN (PF)) injection 4 mg predniSONE 20 mg tablet lidocaine 5 % (700 mg/patch) patch traMADoL 50 mg tablet First Provider Eval: ED Events Date/Time Event User Comments 07/10/24 1515 Medical Screening Begins FREDDIE MARCH MD -- 07/10/24 151 First Provider Evaluation FREDDIE MARCH MD -- ED COURSE Diagnosis/Impression as of 07/10/24 1821 Right flank pain Procedures: Procedures MDM: [...] PCP Electronically signed by: Freddie March MD 07/10/24 1821 [id number] 22:58:37 Pt discharged with diagnosis of CP, acute nonintractable headache nausea, and rhinorrhea. Printed and verbal instructions reviewed with and given to pt. Prescriptions given x 0. Pt verbalized understanding of teaching and recommended follow-up. Denies questions or concerns at this time. Pt ambulatory at discharge. Appears in no apparent distress. No ataxia noted. Accompanied by family. Stacie Elam [id number] 19:34:21 Pt arrived ambulatory without assist, c/o feeling off with chest pain, shaky and anxious that started last night and then has been on and off today. Aide Simpson [facility] [id number] 00:00:00 [facility]2024-07-16 00:00:00 [facility]2024-07-05 22:41:08 Pt given printed and verbal discharge [...] with steady gait, in no apparent distress, [id number] 18:19:09 Came in via private auto due to fever and sore throat aox4, rr even and non labored. Vitals are stable. Hx of stroke two weeks ago [facility] Simone Coto [facility]
[2025-07-19 19:14] LABS: Absolute Lymphocytes (CBC) 0.8 K/uL (0.7-4.9); Hematocrit 34.6 % (36.0-45.0); Hemoglobin 11.7 g/dL (12.0-15.0); MCH 34.6 pg (27.0-35.0); MCHC 33.8 g/dL (32.0-36.0); MCV 102.4 fL (80-100); MPV 7.6 fL (7.6-11.3); Nucleated RBC Absolute Count 0.0 (0-0); Nucleated Red Blood Cells % 0.0 % (0-0); RBC Red Blood Cell Count 3.38 M/uL (3.86-4.86); White Blood Count 3.30 thou/uL (4.3-10.9)
[2025-07-19] MEDS ORDERED: METOCLOPRAMIDE 10 MG/2mL INJ ONE (19:35)
[2025-07-19] MEDS ORDERED: DIPHENHYDRAMINE 50 MG/ML VIAL ONE (19:35)
[2025-07-19] MEDS ORDERED: FAMOTIDINE 20 MG/2 ML VIAL IV ONE (19:36)
[2025-07-19 19:52] LABS: ALT/SGPT 23.0 U/L (13-56); AST/SGOT 39.0 U/L (15-37); Albumin 2.9 g/dL (3.4-5.0); Albumin/Globulin Ratio 0.7 (1.1-1.8); Alkaline Phosphatase 124.0 U/L (45-117); Anion Gap 8.6 mEq/L (5.0-15.0); BUN Blood Urea Nitrogen 8.0 mg/dL (7-18); Globulin 4.1 g/dL (2.3-3.5); Glucose Level 110.0 mg/dL (74-106); Lipase 30.0 U/L (13-75); Magnesium 2.2 mg/dL (1.6-2.4); Potassium 3.6 mEq/L (3.5-5.1); Troponin High Sensitivity 5.9 pg/mL (<58.9)
--- NOTE | 2025-07-19 20:11 | RAD REPORT ---
EXAM: Chest Single View HISTORY: 54 years Female PALPITATIONS COMPARISON: 12/16/2023 FINDINGS: LUNGS/PLEURA: The lungs are clear. No pleural effusions or pneumothorax. No pulmonary edema. CARDIAC/MEDIASTINUM: Mild cardiomegaly UPPER ABDOMEN: No significant abnormality. BONES: No acute abnormality. LINES/TUBES/OTHER: N/A IMPRESSION: No evidence of acute cardiopulmonary disease.
[2025-07-19 20:57] LABS: Urine Microscopic Reflex YN NO UMIC
--- NOTE | 2025-07-19 21:24 | RAD REPORT ---
EXAMINATION: Abdomen Pelvis W Contrast CLINICAL INDICATION: Female, 54 years old.ABD PAIN TECHNIQUE: CT abdomen and pelvis was performed, after the administration of IV contrast, as per [facility]. Axial, sagittal and coronal reconstructions were obtained. One or more of the following dose reduction techniques were used: Automated exposure control, adjustment of the mA and/o r kV according to patient size, and/or iterative reconstruction. Unless otherwise specified, incidental findings do not require dedicated imaging follow-up. [id number]. COMPARISON: 12/08/24 FINDINGS: LOWER CHEST: No acute process identified.No significant pericardial effusion. UPPER GI: No significant abnormality. LIVER: Nodular liver contour. Steatosis. No focal mass. Significant improvement from the previous CT from 01/17/2025 that demonstrated GALLBLADDER/BILE DUCTS: Cholecystectomy.? PANCREAS: No mass, ductal dilation, or ester-pancreatic fluid. SPLEEN: Mild splenomegaly. ADRENALS: No adrenal masses. KIDNEYS AND URETERS: No hydronephrosis.No suspicious renal mass.No renal calculi.No ureteral calculi. ABDOMINAL AORTA AND OTHER VESSELS: Mild atherosclerotic changes. PERITONEUM: No abnormal free fluid. No free air. LYMPH NODES: No pathologic lymphadenopathy. ABDOMINAL WALL: Unremarkable SMALL BOWEL/COLON: Small bowel has normal course and caliber. No colonic wall thickening or pericolon ic inflammatory changes.Appendix absent. Mild diverticulosis without diverticulitis. URINARY BLADDER: Underdistended but grossly unremarkable. REPRODUCTIVE ORGANS: Uterus surgically absent. No adnexal abnormality. MUSCULOSKELETAL: No acute or suspicious osseous abnormality. ADDITIONAL FINDINGS: None. IMPRESSION: No acute findings within the abdomen or pelvis. Cirrhosis with evidence of portal hypertension including splenomegaly.
[2025-07-19 21:33] LABS: PT Prothrombin Time 17.0 SECONDS (10-13.0); PTT, Activated Partial Thromb 44.9 SECONDS (27.2-37.4); Protime INR 1.52
--- NOTE | 2025-07-19 22:53 | ER ---
Nurse's Notes [facility] Name: Vianca Casey Age: 54 yrs Sex: Female : 1970 Arrival Date: 07/19/2025 Time: 18:00 Bed 6 Private MD: Diagnosis: Alcoholic cirrhosis of liver;Nausea with vomiting, unspecified;Abdominal pain, unspecified Presentation: 07/19 18:16 Chief complaint: Patient states: VOMITING OFF/ON X1 WEEK AND UPPER STOMACH PAIN AND ll1 HEADACHE X1 DAY. PT REPORTS SHE IS ON THE LIVER TRANSPLANT LIST AND WAS ADVISED TO COME TO ER. Coronavirus screen: At this time, the client does not indicate any symptoms associated with coronavirus-19. Ebola Screen: No symptoms or risks identified at this time. Initial Sepsis Screen: Does the patient meet any 2 criteria? No. Patient's initial sepsis screen is negative. Does the patient have a suspected source of infection? No. Patient's initial sepsis screen is negative. Risk Assessment: Do you want to hurt yourself or someone else? Patient reports no desire to harm self or others. Onset of symptoms was July 12, 2025. 18:16 Method Of Arrival: Ambulatory ll1 18:16 Acuity: MARY 3 ll1 Triage Assessment: 18:20 General: Appears in no apparent distress. uncomfortable, Behavior is calm, cooperative, ll1 appropriate for age. Pain: Complains of pain in abdomen, head. Neuro: Reports headache. GI: Reports upper abdominal pain, nausea, vomiting. Historical: - Allergies: 18:20 Sulfa (Sulfonamide Antibiotics); ll1 - PMHx: 18:20 Seizure; Cirrhosis of liver; Pancreatitis; ll1 - PSHx: 18:20 Total abdominal hysterectomy; Appendectomy; Cholecystectomy; ll1 - Immunization history:: Adult Immunizations up to date. - Infectious Disease History:: Denies. - Social history:: Smoking status: Patient denies any tobacco usage or history of. Screenin:02 [facility] ED Fall Risk Assessment (Adult) History of falling in the last 3 months, mf3 including since admission No falls in past 3 months (0 pts) Confusion or Disorientation No (0 pts) Intoxicated or Sedated No (0 pts) Impaired Gait No (0 pts) Mobility Assist Device Used No (0 pt) Altered Elimination No (0 pt) Score/Fall Risk Level 0 - 2 = Low Risk Oriented to surroundings, Maintained a safe environment, Hourly rounding (assess needs \T\ fall precautionary measures) done. Abuse screen: Denies threats or abuse. Denies injuries from another. Nutritional screening: No deficits noted. Tuberculosis screening: No symptoms or risk factors identified. Never had TB. Assessment: 18:37 Reassessment: Patient and/or family updated on plan of care and expected duration. Pain ll1 level reassessed. 23:05 GI: Bowel sounds present X 4 quads. Abd is soft and non tender X 4 quads. mf3 Vital Signs: 18:16 BP 121 / 67; Pulse 92; Resp 16; Temp 98.4; Pulse Ox 100% on R/A; Weight 77.11 kg; ll1 Height 5 ft. 2 in. ; Pain 8/10; 20:25 BP 111 / 72; Pulse 91; Resp 18; Pulse Ox 99% ; mf3 21:38 BP 120 / 72; Pulse 99; Resp 18; Pulse Ox 98% ; mf3 22:15 BP 111 / 66; Pulse 94; Resp 18; Pulse Ox 97% on R/A; mf3 23:00 BP 125 / 78; Pulse 91; Resp 18; Pulse Ox 99% on R/A; mf3 18:16 Body Mass Index 31.09 (77.11 kg, 157.48 cm) ll1 18:16 Pain Scale: Adult ll1 ED Course: 18:02 Patient arrived in ED. im 18:07 Wilian Parson PA-C is PHCP. cp 18:07 Willam Beard DO is Attending Physician. cp 18:20 Triage completed. ll1 18:20 Arm band placed on right wrist. ll1 18:37 Patient placed in an exam room, on a stretcher. ll1 19:07 Initial lab(s) drawn, by ct, sent to lab. Inserted saline lock: 20 gauge in right ap3 antecubital area, using aseptic technique. Blood collected. Flushed with 10 mL NS. 19:07 EKG done, by ED staff, reviewed by Wilian Parson PA-C. aa5 19:54 XRAY Chest (1 view) In Process Unspecified. EDMS 21:07 CT Abd/Pelvis - IV Contrast Only In Process Unspecified. EDMS 22:29 Tabby Rushing, RN is Primary Nurse. mf3 23:02 Patient has correct armband on for positive identification. Bed in low position. Call 3 light in reach. Side rails up X2. Provided Education on: pt educated on poc and discharge. 23:02 No provider procedures requiring assistance completed. IV discontinued, intact, mf3 bleeding controlled, No redness/swelling at site. Pressure dressing applied. Administered Medications: 19:46 Drug: metoCLOPramide IVP 10 mg IVP once; over 1 to 2 minutes Route: IVP; Site: right 3 antecubital; 22:43 Follow up: Response: No adverse reaction 4 23:04 Follow up: Response: No adverse reaction 3 19:46 Drug: diphenhydrAMINE IVP 25 mg IVP once Route: IVP; Site: right antecubital; 3 22:43 Follow up: Response: No adverse reaction 4 23:04 Follow up: Response: No adverse reaction 3 19:46 Drug: Famotidine IVP 20 mg IVP once; dilute with 10 mL 0.9% NaCl; give over 2 minutes 3 Route: IVP; Site: right antecubital; 22:43 Follow up: Response: No adverse reaction 4 23:04 Follow up: Response: No adverse reaction mf3 Medication: 23:02 VIS not applicable for this client. 3 Outcome: 22:53 Discharge ordered by . cp 23:05 Discharged to home ambulatory, with family, 3 23:05 Condition: stable 23:05 Discharge instructions given to patient, Instructed on discharge instructions, Demonstrated understanding of instructions, follow-up care, medications, Prescriptions given X 1, 23:06 Patient left the ED. 3 Signatures: Dispatcher [employer] EDMS Elena Medrano, RN RN aa5 Wilian Parson PA-C PAWhitney Edmonds cp RN RN ap3 Melonie Payne RN RN ll1 Elvira Grimes Christina cp4 Tabby Rushing RN RN 3
--- NOTE | 2025-07-19 22:53 | EDPHYS ---
Physician Documentation [facility] Name: Vianca Casey Age: 54 yrs Sex: Female : 1970 Arrival Date: 07/19/2025 Time: 18:00 Bed 6 Private MD: ED Physician Willam Beard HPI: 07/19 19:00 This 54 yrs old Female presents to ER via Ambulatory with complaints of Abdominal Pain, cp Nausea/Vomiting. 19:00 The patient presents with abdominal pain in the upper abdomen, nausea and intermittent cp vomiting times 1 week. 19:00 Associated signs and symptoms: Pertinent negatives: blood in stools, chest pain, cp constipation, diarrhea, fever, vomiting blood. The symptoms are described as constant. Severity of pain: in the emergency department the pain is unchanged despite home interventions. Historical: - Allergies: 18:20 Sulfa (Sulfonamide Antibiotics); ll1 - PMHx: 18:20 Seizure; Cirrhosis of liver; Pancreatitis; ll1 - PSHx: 18:20 Total abdominal hysterectomy; Appendectomy; Cholecystectomy; ll1 - Immunization history:: Adult Immunizations up to date. - Infectious Disease History:: Denies. - Social history:: Smoking status: Patient denies any tobacco usage or history of. ROS: 19:05 Constitutional: Negative for body aches, fever, poor PO intake, cp 19:05 Eyes: Negative for injury, pain, redness, and discharge, cp 19:05 ENT: Negative for drainage from ear(s), ear pain, sore throat, difficulty swallowing, difficulty handling secretions, 19:05 Cardiovascular: Negative for chest pain, edema, palpitations, 19:05 Respiratory: Negative for cough, shortness of breath, wheezing, 19:05 Abdomen/GI: Positive for abdominal pain, nausea and vomiting, decreased appetite, Negative for diarrhea, constipation, black/tarry stool, rectal bleeding, 19:05 Back: Negative for pain at rest, pain with movement, 19:05 Neuro: Negative for altered mental status, 19:05 All other systems are negative, Exam: 19:10 Constitutional: The patient appears in no acute distress, alert, awake, cp non-diaphoretic, non-toxic, well developed, well nourished, uncomfortable, 19:10 Head/Face: Normocephalic, atraumatic. cp 19:10 Eyes: Periorbital structures: appear normal, Conjunctiva: normal, no exudate, no injection, Sclera: no appreciated abnormality, Lids and lashes: appear normal, bilaterally, 19:10 ENT: External ear(s): are unremarkable, Nose: is normal, Mouth: Lips: moist, Oral mucosa: moist, Posterior pharynx: Airway: no evidence of obstruction, patent, 19:10 Neck: ROM/movement: is normal, 19:10 Chest/axilla: Inspection: normal, 19:10 Cardiovascular: Rate: normal, Rhythm: regular, Edema: is not appreciated, JVD: is not appreciated, 19:10 Respiratory: the patient does not display signs of respiratory distress, Respirations: normal, no use of accessory muscles, no retractions, labored breathing, is not present, Breath sounds: are clear throughout, no decreased breath sounds, no stridor, no wheezing, 19:10 Abdomen/GI: Inspection: abdomen appears normal, Bowel sounds: active, all quadrants, Palpation: soft, in all quadrants, moderate abdominal tenderness, in the epigastric area, right upper quadrant and left upper quadrant, rebound tenderness, is not appreciated, involuntary guarding, is not appreciated, 19:10 Back: CVA tenderness, is absent, 19:10 Skin: cellulitis, is not appreciated, no rash present. 19:10 Neuro: Orientation: to person, place \T\ time. Mentation: is normal, Cerebellar function: is grossly normal, Motor: moves all fours, strength is normal, Sensation: is normal, 19:12 ECG was reviewed by the Attending Physician. cp Vital Signs: 18:16 BP 121 / 67; Pulse 92; Resp 16; Temp 98.4; Pulse Ox 100% on R/A; Weight 77.11 kg; ll1 Height 5 ft. 2 in. ; Pain 8/10; 20:25 BP 111 / 72; Pulse 91; Resp 18; Pulse Ox 99% ; mf3 21:38 BP 120 / 72; Pulse 99; Resp 18; Pulse Ox 98% ; mf3 22:15 BP 111 / 66; Pulse 94; Resp 18; Pulse Ox 97% on R/A; mf3 23:00 BP 125 / 78; Pulse 91; Resp 18; Pulse Ox 99% on R/A; mf3 18:16 Body Mass Index 31.09 (77.11 kg, 157.48 cm) ll1 18:16 Pain Scale: Adult ll1 MDM: 18:24 Medical Screening Exam initiated cp 22:53 Data reviewed: vital signs, nurses notes, lab test result(s), EKG, radiologic studies, cp plain films. 22:53 Differential diagnosis: bowel obstruction, diverticulitis, gastritis, pancreatitis, cp Peptic Ulcer Disease, Perf. Duodenal Ulcer, Perf. Gastric Ulcer, Pyelonephritis, Ureterolithiasis. I considered the following discharge prescriptions or medication management in the emergency department Medications were administered in the Emergency Department. See MAR. Care significantly affected by the following chronic conditions: Liver Disease. Counseling: I had a detailed discussion with the patient and/or guardian regarding the historical points, exam findings, and any diagnostic results supporting the discharge/admit diagnosis, lab results, radiology results, to return to the emergency department if symptoms worsen or persist or if there are any questions or concerns that arise at home. Response to treatment: the patient's symptoms have markedly improved after treatment, nausea improved and vomiting resolved. will discharge to home for continued monitoring. Special discussion: Based on the patient's Hx, exam, and Dx evaluation, there is no indication for emergent surgery or inpatient Tx. It is understood by the patient/guardian that if the Sx's persist or worsen they need to return immediately for re-evaluation. 07/19 18:57 Order name: CBC with Diff; Complete Time: 20:40 cp 07/19 20:41 Interpretation: Normal except: WBC 3.30; RBC 3.38; HGB 11.7; HCT 34.6; MCV 102.4; PLT cp 109; RDW 18.3; MN% 15.5. 07/19 18:57 Order name: CMP; Complete Time: 20:40 cp 07/19 20:43 Interpretation: Normal except: GLUC 110; AST 39; ALK 124; BILIT 3.3; ALB 2.9; GLOB 4.1; cp A/G 0.7. 07/19 18:57 Order name: Lipase; Complete Time: 20:40 cp 07/19 20:43 Interpretation: Reviewed. 07/19 18:57 Order name: AMMONIA; Complete Time: 20:40 cp 07/19 18:57 Order name: UA Rfx Asaf Cult if indicated; Complete Time: 22:38 cp 07/19 22:38 Interpretation: Normal except: [facility] Turbid. cp 07/19 18:57 Order name: PT-INR; Complete Time: 22:38 cp 07/19 18:57 Order name: Ptt, Activated; Complete Time: 22:38 cp 07/19 18:57 Order name: Magnesium; Complete Time: 20:40 cp 07/19 18:57 Order name: Troponin HS; Complete Time: 20:40 cp 07/19 18:57 Order name: XRAY Chest (1 view); Complete Time: 20:40 cp 07/19 20:45 Order name: CT Abd/Pelvis - IV Contrast Only; Complete Time: 22:38 cp 07/19 18:57 Order name: IV Saline Lock; Complete Time: 20:01 cp 07/19 18:57 Order name: Labs collected and sent; Complete Time: 20:01 cp 07/19 18:57 Order name: Cardiac monitoring; Complete Time: 19:08 cp 07/19 18:57 Order name: EKG - Nurse/Tech; Complete Time: 19:08 cp 07/19 18:57 Order name: O2 Per Protocol; Complete Time: 19:08 cp 07/19 18:57 Order name: O2 Sat Monitoring; Complete Time: 19:08 cp 07/19 22:40 Order name: PO challenge; Complete Time: 22:50 cp EC:12 Rate is 88 beats/min. Rhythm is regular. RI interval is normal. QRS interval is normal. cp QT interval is normal. T waves are Inverted in leads aVR, V2. Interpreted by me. Reviewed by me. Administered Medications: 19:46 Drug: metoCLOPramide IVP 10 mg IVP once; over 1 to 2 minutes Route: IVP; Site: right 3 antecubital; 22:43 Follow up: Response: No adverse reaction cp4 23:04 Follow up: Response: No adverse reaction 3 19:46 Drug: diphenhydrAMINE IVP 25 mg IVP once Route: IVP; Site: right antecubital; 3 22:43 Follow up: Response: No adverse reaction cp4 23:04 Follow up: Response: No adverse reaction 3 19:46 Drug: Famotidine IVP 20 mg IVP once; dilute with 10 mL 0.9% NaCl; give over 2 minutes [facility] Route: IVP; Site: right antecubital; 22:43 Follow up: Response: No adverse reaction cp4 23:04 Follow up: Response: No adverse reaction mf3 Disposition Summary: 07/19/25 22:53 Discharge Ordered Notes: Location: Home cp Condition: Stable cp Problem: an acute exacerbation cp Symptoms: have improved cp Diagnosis - Alcoholic cirrhosis of liver cp - Nausea with vomiting, unspecified cp - Abdominal pain, unspecified cp Followup: cp - With: Private Physician - When: 2 - 3 days - Reason: Worsening of condition Discharge Instructions: - Discharge Summary Sheet cp - Abdominal Pain, Adult cp - Cirrhosis cp - Flank Pain, Adult cp - Nausea and Vomiting, Adult cp Forms: - Medication Reconciliation Form cp - Antibiotic Education cp - Prescription Opioid Use cp - Patient Portal Instructions cp - Leadership Thank You Letter cp Prescriptions: - Reglan 10 mg Oral Tablet - take 1 tablet ORAL route every 6 hours take 30 minutes before meals and at cp bedtime; 20 tablet; Refills: 0, Product Selection Permitted Signatures: Dispatcher [employer] EDMS Wilian Parson PA-C PA-C cp Lewis, Lynsay, RN RN ll1 Tabby Rushing RN RN mf3 Silva Elam 4 Corrections: (The following items were deleted from the chart) 18:57 18:57 CBC+H.LAB.BRZ ordered. EDMS EDMS 18:57 18:57 COMPREHENSIVE METABOLIC PANEL+C.LAB.BRZ ordered. EDMS EDMS 18:57 18:57 LIPASE+C.LAB.BRZ ordered. EDMS EDMS 18:57 18:57 AMMONIA+C.LAB.BRZ ordered. EDMS EDMS 18:57 18:57 UA Rfx Asaf Cult if indicated+U.LAB.BRZ ordered. EDMS EDMS 18:57 18:57 PROTIME (+INR)+COAG.LAB.BRZ ordered. EDMS EDMS 18:57 18:57 PTT, ACTIVATED+COAG.LAB.BRZ ordered. EDMS EDMS 18:57 18:57 MAGNESIUM+C.LAB.BRZ ordered. EDMS EDMS 18:57 18:57 Troponin High Sensitivity+C.LAB.BRZ ordered. EDMS EDMS 18:57 18:57 Chest Single View+RAD.RAD.BRZ ordered. EDMS EDMS 20:45 20:45 Abdomen Pelvis W Con+CT.RAD.BRZ ordered. EDMS EDMS
[2025-07-19 23:36] VITALS: TEMP 98.4
[2025-07-19 23:43] VITALS: BP 125/78; O2SAT 99
== END 2025-07-19 23:06 | disposition home or self-care (01) ==
LOC: ER 18:00
DX: K70.30 Alcoholic cirrhosis of liver without ascites (principal); R11.2 Nausea with vomiting, unspecified
CPT/HCPCS: 93005; 85025; 36415; 82140; 83735; 85610; 85730; 81003; 84484; 83690; 80053; 74177; 71045; 96375; 96374; 99284; Q9967; J2765; J1200